=== PATIENT | female | born 1975 | race Caucasian/White ===

== ENCOUNTER 2019-11-21 09:51 | Outpatient (REF) | payer MEDICAID, SELFPAY ==
--- NOTE | 2019-11-21 10:01 | EMG_ITS ---
HISTORY OF PRESENT ILLNESS: This is a 44-year-old woman with a 2-month history of bilateral upper extremity pain, numbness, and tingling and some locking of the thumb. PHYSICAL EXAMINATION: On examination, she is alert and oriented with normal intellectual functions. Cranial nerves II through XII are normal. Muscle tone and strength are normal in all 4 extremities. Deep tendon reflexes symmetrical, 2+, plantar responses are flexor. No Tinel or Phalen sign. IMPRESSION: Carpal tunnel syndrome. NERVE CONDUCTION EMG STUDY: Mild to moderate carpal tunnel syndrome on the right and mild carpal tunnel syndrome on the left. Normal EMG of the right C5-T1 innervated muscles. MD KEL Chowdhury/ALINE / [id number]
== END 2019-11-21 09:52 | disposition home or self-care (01) ==
LOC: HO.NEURO 09:51
PROVIDERS: PCP Emergency Medicine; Visit Provider Emergency Medicine
DX: M79.641 Pain in right hand (principal); M79.642 Pain in left hand
CPT/HCPCS: 95860; 95913

== ENCOUNTER 2020-02-14 12:37 | Outpatient (REF) | payer MEDICAID, SELFPAY ==
--- NOTE | 2020-02-14 12:40 | MM_ITS ---
EXAMINATION: MM SCREENING DIGITAL BREAST TOMOSYNTHESIS, BILATERAL CLINICAL INFORMATION: Screening. Asymptomatic. The lifetime risk of breast cancer based on the Tyrer-Cuzick Model is 7%. COMPARISON: Mammography: 11/16/2018, 07/27/2017, 06/25/2016 TECHNIQUE: Digital breast tomosynthesis is performed in both the craniocaudal and mediolateral oblique views along with computer-aided detection (CAD). Synthesized 2D images are generated from the tomosynthesis. Additional right CC view is provided. FINDINGS: There are scattered areas of fibroglandular density (ACR BI-RADS breast composition Category b). There are no significant masses, abnormal calcifications, or other abnormalities. There is fine fibronodular parenchymal pattern similar to prior studies. There are no significant changes. MM/MM tomosynthesis screening BI IMPRESSION: No mammographic evidence of malignancy. ASSESSMENT: BI-RADS 1: Negative RECOMMENDATION: Routine annual mammography screening. This patient's information was entered into a reminder system with a target due date for their next mammogram.
== END 2020-02-14 12:38 | disposition home or self-care (01) ==
LOC: HO.MAMMO 12:37
PROVIDERS: PCP Internal Medicine; Visit Provider Internal Medicine
DX: Z12.31 Encounter for screening mammogram for malignant neoplasm of breast (principal)
CPT/HCPCS: 77063; 77067

== ENCOUNTER 2020-03-07 09:23 | Outpatient (REF) | payer MEDICAID, SELFPAY ==
[2020-03-07 10:33] LABS: Glucose Urine UA NEG (NEG); Leukocyte Esterase Urine 2+ (NEG); Nitrite Urine NEG (NEG); PH 6.5 (5.0-8.0); Urine Blood 3+ (NEG); Urine Ketones 5 MG/DL (NEG); Urine Protein TRACE MG/DL (NEG-TRACE)
[2020-03-07 10:34] LABS: Appearance Urine CLOUDY; Color Urine YELLOW
[2020-03-07 10:51] LABS: Bacteria Urine TRACE /LPF; Mucus Urine 1+ /LPF; RBC Urine TNTC /HPF (0); Squamous Epithelial Cell Urine 1+ /LPF; WBC Urine TNTC /HPF (0-4)
== END 2020-03-07 09:24 | disposition home or self-care (01) ==
LOC: HO.LAB 09:23
PROVIDERS: Absent Provider Internal Medicine; PCP Internal Medicine; Visit Provider Internal Medicine
DX: N39.0 Urinary tract infection, site not specified (principal)
CPT/HCPCS: 81001; 87086; 87088; 87186

== ENCOUNTER 2020-10-02 10:40 | Outpatient (REF) | payer MEDICAID, SELFPAY ==
--- NOTE | ~2020-10-02 | XR_ITS ---
EXAMINATION: XR HAND/WRIST, RIGHT CLINICAL INFORMATION: Osteoarthritic pain. COMPARISON: None TECHNIQUE: PA, lateral, and oblique views of the right hand and wrist are submitted, together with a dedicated navicular view. FINDINGS: The bones and soft tissues are normal. No fracture. Alignment is anatomic. Joint spaces are maintained. No erosions or soft tissue calcifications. XR/XR hand wrist LT IMPRESSION: Normal radiographs of the hand and wrist. EXAMINATION: XR HAND/WRIST, LEFT CLINICAL INFORMATION: Osteoarthritic pain. COMPARISON: None TECHNIQUE: PA, lateral, and oblique views of the left hand and wrist are submitted, together with a dedicated navicular view. FINDINGS: The bones and soft tissues are normal. No fracture. Alignment is anatomic. Joint spaces are maintained. No erosions or soft tissue calcifications.
--- NOTE | ~2020-10-02 | XR_ITS ---
EXAMINATION: XR HAND/WRIST, RIGHT CLINICAL INFORMATION: Osteoarthritic pain. COMPARISON: None TECHNIQUE: PA, lateral, and oblique views of the right hand and wrist are submitted, together with a dedicated navicular view. FINDINGS: The bones and soft tissues are normal. No fracture. Alignment is anatomic. Joint spaces are maintained. No erosions or soft tissue calcifications. XR/XR hand wrist RT IMPRESSION: Normal radiographs of the hand and wrist. EXAMINATION: XR HAND/WRIST, LEFT CLINICAL INFORMATION: Osteoarthritic pain. COMPARISON: None TECHNIQUE: PA, lateral, and oblique views of the left hand and wrist are submitted, together with a dedicated navicular view. FINDINGS: The bones and soft tissues are normal. No fracture. Alignment is anatomic. Joint spaces are maintained. No erosions or soft tissue calcifications.
--- NOTE | ~2020-10-02 | XR_ITS ---
EXAMINATION: XR CERVICAL SPINE CLINICAL INFORMATION: Osteoarthritic pain. COMPARISON: Radiographs dated 04/30/2014. TECHNIQUE: Frontal, odontoid, bilateral oblique and lateral views of the cervical spine were obtained. FINDINGS: The vertebral alignment is normal. No intrinsic bony abnormality. The disc heights and neural foramina are well maintained. The endplates and posterior elements are normal. The bilateral neural foramina appear patent. No fracture or subluxation. The surrounding prevertebral soft tissues are unremarkable. XR/XR cervical spine min 6V IMPRESSION: Unremarkable examination.
[2020-10-02 12:38] LABS: C Reactive Protein 1.41 mg/dL (< or = 0.50)
[2020-10-02 13:17] LABS: Erythrocyte Sedimentation Rate 16 MM/HR (0-20)
[2020-10-06 13:36] LABS: Anti Nuclear Antibody Pattern Nuclear, Speckled; Anti Nuclear Antibody Screen POSITIVE (NEGATIVE); Anti Nuclear Antibody Titer 1:40 titer
[2020-10-06 14:51] LABS: Cyclic Citrullinated Peptide <16 UNITS
== END 2020-10-02 10:41 | disposition home or self-care (01) ==
LOC: HO.LAB 10:40
PROVIDERS: PCP Internal Medicine; Visit Provider Internal Medicine
DX: G56.03 Carpal tunnel syndrome, bilateral upper limbs (principal); M19.90 Unspecified osteoarthritis, unspecified site
CPT/HCPCS: 36415; 72052; 73110; 73130; 85652; 86038; 86039; 86140; 86200

== ENCOUNTER 2020-11-06 13:41 | Outpatient (REF) | payer MEDICAID, SELFPAY ==
[2020-11-11 15:22] LABS: HPV mRNA E6/E7 rflx Not Detected (Not Detected)
== END 2020-11-06 13:42 | disposition home or self-care (01) ==
LOC: HO.LAB 13:41
PROVIDERS: PCP Internal Medicine; Visit Provider Obstetrics & Gynecology
DX: Z01.411 Encounter for gynecological examination (general) (routine) with abnormal findings (principal); Z11.51 Encounter for screening for human papillomavirus (HPV); N95.0 Postmenopausal bleeding; Z87.42 Personal history of other diseases of the female genital tract
CPT/HCPCS: 87624; 88142; 99212

== ENCOUNTER 2020-11-27 11:23 | Outpatient (REF) | payer MEDICAID, SELFPAY ==
--- NOTE | ~2020-11-27 | US_ITS ---
EXAMINATION: US PELVIC AND TRANSVAGINAL CLINICAL INFORMATION: Post menopausal bleeding. COMPARISON: Ultrasound pelvis 09/17/2019 TECHNIQUE: Ultrasound of the pelvis was performed using both transabdominal and transvaginal transducers along with Doppler. Transvaginal imaging was performed due to inadequate visualization transabdominally. FINDINGS: The uterus is anteverted measuring 8.9 cm in length, 3.7 cm in AP and 5.9 cm in transverse dimensions. Endometrial thickness measures 0.9 cm. There are at least 2 lesions visualized. 1. Lesion in the anterior mid body of the uterus measures 1.6 x 1.1 x 1.8 cm. Previously it measured 1.4 x 1.3 x 1.8 cm. 2. Lesion in the anterior fundal uterus measures 0.7 x 0.7 x 0.7 cm. Previously, it was not seen. 3. The previously seen lesion measuring 1.1 x 1.1 x 0.9 cm is not visualized at this time. There are multiple anechoic nabothian cysts seen. The right ovary measures 1.4 x 1.4 x 1.0 cm and volume 1.0 mL. The ovary appears unremarkable. The left ovary measures 1.6 x 0.9 x 1.7 cm and volume 1.3 mL. It is visualized transabdominally only. US/US pelvic and transvaginal IMPRESSION: At least 2 uterine fibroids are noted. There is a new fibroid measuring 0.7 cm. The previously seen 1.1 cm fibroid on 09/17/2019 is not seen on the present exam. Both ovaries are unremarkable. Small nabothian cysts in the cervix.
== END 2020-11-27 11:24 | disposition home or self-care (01) ==
LOC: HO.US 11:23
PROVIDERS: PCP Internal Medicine; Visit Provider Obstetrics & Gynecology
DX: N95.0 Postmenopausal bleeding (principal)
CPT/HCPCS: 76830; 76856

== ENCOUNTER 2020-12-11 13:53 | Outpatient (REF) | payer MEDICAID, SELFPAY | END 2020-12-11 13:54 | disposition home or self-care (01) | LOC: HO.LAB 13:53 | PROVIDERS: PCP Internal Medicine; Visit Provider Obstetrics & Gynecology | DX: N95.0 Postmenopausal bleeding (principal) | CPT/HCPCS: 58100; 88305 ==

== ENCOUNTER → 2021-01-07 16:08 | Outpatient (BNVA) | payer MEDICAID, SELFPAY | PROVIDERS: PCP Internal Medicine; Visit Provider Obstetrics & Gynecology ==

== ENCOUNTER → 2021-04-30 12:57 | Outpatient (BNVA) | payer MEDICAID, SELFPAY | PROVIDERS: PCP Internal Medicine; Referring Provider Internal Medicine; Visit Provider Physician Assistant | DX: Z01.818 Encounter for other preprocedural examination (principal) | CPT/HCPCS: 99202 ==

== ENCOUNTER 2021-07-01 11:56 | Outpatient (REF) | payer MEDICAID, SELFPAY ==
--- NOTE | ~2021-07-01 | MM_ITS ---
EXAMINATION: MM SCREENING DIGITAL BREAST TOMOSYNTHESIS, BILATERAL CLINICAL INFORMATION: Screening. Asymptomatic. The lifetime risk of breast cancer based on the Tyrer-Cuzick Model is 8%. COMPARISON: Mammography: 02/14/2020, 11/16/2018, 2018 TECHNIQUE: Digital breast tomosynthesis is performed in both the craniocaudal and mediolateral oblique views along with computer-aided detection (CAD). Synthesized 2D images are generated from the tomosynthesis. Additional exaggerated right CC and additional right MLO views are provided. FINDINGS: There are scattered areas of fibroglandular density (ACR BI-RADS breast composition Category b). Findings fibronodular parenchymal pattern is similar to prior exams. There is no developing density or interval mass or architectural abnormality. No abnormal calcifications. The axilla and skin contours are unremarkable. No significant changes. MM/MM tomosynthesis screening BI IMPRESSION: No mammographic evidence of malignancy. ASSESSMENT: BI-RADS 1: Negative RECOMMENDATION: Routine annual mammography screening. This patient's information was entered into a reminder system with a target due date for their next mammogram.
== END 2021-07-01 11:57 | disposition home or self-care (01) ==
LOC: HO.MAMMO 11:56
PROVIDERS: PCP Internal Medicine; Visit Provider Internal Medicine
DX: Z12.31 Encounter for screening mammogram for malignant neoplasm of breast (principal)
CPT/HCPCS: 77063; 77067

== ENCOUNTER 2021-07-08 08:49 | Day surgery (SDC) | payer MEDICAID, SELFPAY ==
[2021-07-02 12:10] VITALS: BMI 44.4
--- NOTE | 2021-07-07 10:19 | P.CONAN_ITS ---
Documented by User: Mary Ellen Kaur NP 07/07/21 10:19 HPI - Anesthesia Eval Consult details Narrative: 45yo F for Colonoscopy PMFSH Active Problems Active Problems: All Active Problems (Updated 05/03/21 @ 16:41 by Leonie Mancia PA-C) Encounter for screening colonoscopy (Acute) Postmenopausal bleeding (Acute) Well woman exam (Acute) Past Medical History Medical History Acute arthritis Carpal tunnel syndrome BENITO III (cervical intraepithelial neoplasia grade III) with severe dysplasia Seasonal allergic rhinitis Family History Family History Mother HTN (hypertension) A-fib Arthritis Father Diabetes HTN (hypertension) Sister Lupus Surgical History Surgical History Tubal ligation status Social History Social History (Updated 04/30/21 @ 13:25 by Leonie Mancia PA-C) Household Members Other:: kids Patient Tobacco Use Status: Never used Tobacco Use of substances other than those prescribed or required for medical reasons: No Are you DNR?: No Advance Directives: No Advance Directives Information Provided: Yes Patient : No (TUBAL LIGATION) Current occupational status: employed 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[employer] Meds Allergies Allergy/AdvReac Type Severity Reaction Status Date / Time No Known Allergies Allergy Verified 04/30/21 13:02 Home Medications Medication Instructions Recorded Confirmed Last Taken Type fluoxetine 20 mg capsule 20 mg PO DAILY 04/30/21 07/02/21 Unknown History ibuprofen 200 mg tablet 200 mg PO Q6H PRN 04/30/21 07/02/21 Unknown History Exam Exam Date and Time: July 07, 2021 1019 Height,Weight and Vital Signs: Height 4 ft 11 in Weight 99.79 kg Assessment and Plan Assessment Anesthesia Assessment: Chart Reviewed Documented by User: eMllissa Gleason MD 07/08/21 09:24 [facility] Past Medical History Medical History Acute arthritis Carpal tunnel syndrome BENITO III (cervical intraepithelial neoplasia grade III) with severe dysplasia Seasonal allergic rhinitis Family History Family History Mother HTN (hypertension) A-fib Arthritis Father Diabetes HTN (hypertension) Sister Lupus Family history of problems with anesthesia: No Surgical History Surgical History Tubal ligation status Social History Social History (Updated 04/30/21 @ 13:25 by Leonie Mancia PA-C) Household Members Other:: kids Patient Tobacco Use Status: Never used Tobacco Use of substances other than those prescribed or required for medical reasons: No Are you DNR?: No Advance Directives: No Advance Directives Information Provided: Yes Patient : No (TUBAL LIGATION) Current occupational status: employed 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 Meds Allergies Allergy/AdvReac Type Severity Reaction Status Date / Time No Known Allergies Allergy Verified 04/30/21 13:02 Home Medications Medication Instructions Recorded Confirmed Last Taken Type fluoxetine 20 mg capsule 20 mg PO DAILY 04/30/21 07/02/21 Unknown History ibuprofen 200 mg tablet 200 mg PO Q6H PRN 04/30/21 07/02/21 Unknown History Exam Airway Mallampati Class: II TM Dist: >3cm Neck ROM: Full Heart: rrr Lungs: cta Assessment and Plan Assessment Anesthesia Assessment: Anesthesia Plan Discussed and Chart Reviewed Final Anesthetic Review Family History of Problems with Anesthesia: No NPO: Yes ASA Class: II Final Preanesthetic Review: No Changes in Pt Med Stat, Meds/Allgs Chart Reviewed, Consent Obtained/Reviewed and Anes Risks/Benef Reviewed Patient Risk: Intermediate Procedure Risk: Intermediate Anesthetic Plan Anesthetic Plan: MAC: Disposition: Standard PACU
[2021-07-08 09:00] VITALS: BMI 44.4
[2021-07-08 09:01] VITALS: BP 163/87; PULSE 74; RESP 18; TEMP 36.4; O2SAT 98
[2021-07-08 09:13] VITALS: BMI 44.4
--- NOTE | 2021-07-08 09:28 | MHC.SHP ---
Pre-Procedural Eval Section A Date of Service: 07/08/21 Section B Chief Complaint: screening Relevant Family History (Specify if Yes): No Relevant Social History: None Present Medications: see Short Stay Collaborative assessment Medical History: Significant History (Acute arthritis Carpal tunnel syndrome BENITO III (cervical intraepithelial neoplasia grade III) with severe dysplasia Seasonal allergic rhinitis) History of Previous Operations: Relevant previous surgery/procedure and date(s) (tubal ligation) Allergies: Allergies Allergy/AdvReac Type Severity Reaction Status Date / Time No Known Allergies Allergy Verified 04/30/21 13:02 Review of Systems Sugical H&P ROS: Negative: Constitution, Cardiovascular, Respiratory, Neurological, Psychiatric, Hem-Onc, Allergic/Immunologic, Gastrointestinal, Genitourinary, Musculoskeletal, Integumentary, Endocrine and Eyes/Ears/Nose/Throat Exam Surgical H&P Exam: Normal: HEENT, Normal: Heart, Normal: Lungs, Normal: Extremities, Normal: Abdomen, Normal: Skin and Normal: Neurological Exam Comment: high BMI Plan Diagnosis/Plan: Unchanged I have reviewed the history and physical and performed a pertinent physical examination on my patient. No changes have occurred unless specified.
--- NOTE | 2021-07-08 09:28 | PM.OP ---
Brief Operative Note Date of Service: 07/08/21 Pre-op diagnosis: screening Post-op diagnosis: same Procedure: see op note Surgeon: Teresa Bazan MD Anesthesia: MAC Was an Industrial Refrigeration Mechanic used for this Procedure?: No Estimated blood loss (mL): 0 Condition: stable Disposition: PACU
--- NOTE | 2021-07-08 09:29 | W.PM.OPN ---
Operative Note Operative Note Date of Service: 07/08/21 Narrative: Operative Information Procedure Description: Colonoscopy Indication: colon screening Anesthesia: MAC COLONOSCOPY Instrument: Olympus variable stiffness pediatric scope 190L Colonoscopy Monitoring: Vital signs and clinical assessment, continuous EKG monitoring, Pulse oximetry, Carbon Dioxide monitoring and blood pressure monitoring were done throughout the procedure. Colon withdrawal time was 7 minutes. Procedure: The patient was placed in the left lateral decubitis position and pre-procedure medications were administered. After a digital rectal examination of the ano-rectum, the video colonoscope was inserted into the rectum and advanced through the colon to the cecum/TI. The colonoscope was slowly withdrawn in a retrograde panoramic fashion and the colon mucosa was carefully examined including a retroflexed view of the rectum. Findings and interventions are described below. Procedure Difficulty: easy Findings: Terminal Ileum-normal Cecum:normal Ascending Colon: normal Transverse Colon -normal Descending Colon:normal Sigmoid Colon: moderate diverticulosis with mucosal hypertrophy Rectum: Retroflexion with small internal hemorrhoids, grade I Anorectum - normal Colon preparation: Lacona Bowel Preparation Scale Right colon; 2 Transverse colon: 3 Left colon; 3 (0 = Unprepared colon segment with mucosa not seen due to solid stool that cannot be cleared. 1 = Portion of mucosa of the colon segment seen, but other areas of the colon segment not well seen due to staining, residual stool and/or opaque liquid. 2 = Minor amount of residual staining, small fragments of stool and/or opaque liquid, but mucosa of colon segment seen well. 3 = Entire mucosa of colon segment seen well with no residual staining, small fragments of stool or opaque liquid) Impression and Post Procedure Diagnosis: internal hemorrhoids diverticular disease Plan: High fiber diet leaflet Avoid straining at stool, epsom salts and sitz bath, anusol supps or cream Repeat Colonoscopy in 10 years or earlier if clinically indicated Above findings were reviewed with the patient and relevant handouts were provided if indicated.
[2021-07-08] MEDS: Lactated Ringers 1,000 ML 100 ML IVCONT (09:41)
--- NOTE | 2021-07-08 09:50 | P.OP_ITS ---
Operative Note Operative Note Date of Service: 07/08/21 Narrative: Operative Information Procedure Description: Colonoscopy Indication: screening colonoscopy Anesthesia: MAC COLONOSCOPY Instrument: Olympus variable stiffness pediatric scope 190L Colonoscopy Monitoring: Vital signs and clinical assessment, continuous EKG monitoring, Pulse oximetry, Carbon Dioxide monitoring and blood pressure monitoring were done throughout the procedure. Colon withdrawal time was 11 minutes. Procedure: The patient was placed in the left lateral decubitis position and pre-procedure medications were administered. After a digital rectal examination of the ano-rectum, the video colonoscope was inserted into the rectum and advanced through the colon to the cecum/TI. The colonoscope was slowly withdrawn in a retrograde panoramic fashion and the colon mucosa was carefully examined including a retroflexed view of the rectum. Findings and interventions are described below. Procedure Difficulty: easy Findings: Terminal Ileum-normal Melanosis coli noted Cecum:normal Ascending Colon: normal Transverse Colon - 6-9 mm sessile polyp removed with cold snare Descending Colon:normal Sigmoid Colon: 6-9 mm sessile polyp removed with cold snare Rectum: Retroflexion with small internal hemorrhoids, grade I Anorectum - normal Colon preparation: Tolstoy Bowel Preparation Scale Right colon; 2 Transverse colon: 2 Left colon; 2 (0 = Unprepared colon segment with mucosa not seen due to solid stool that cannot be cleared. 1 = Portion of mucosa of the colon segment seen, but other areas of the colon segment not well seen due to staining, residual stool and/or opaque liquid. 2 = Minor amount of residual staining, small fragments of stool and/or opaque liquid, but mucosa of colon segment seen well. 3 = Entire mucosa of colon segment seen well with no residual staining, small fragments of stool or opaque liquid) Impression and Post Procedure Diagnosis: polyps internal hemorrhoids melanosis coli Plan: High fiber diet leaflet Avoid straining at stool, epsom salts and sitz bath, anusol supps or cream Repeat Colonoscopy in 5 years due to polyps or earlier if clinically indicated Above findings were reviewed with the patient and relevant handouts were provided if indicated.
--- NOTE | 2021-07-08 09:50 | PM.OP ---
Brief Operative Note Date of Service: 07/08/21 Pre-op diagnosis: colon screening Post-op diagnosis: same Procedure: see op note Surgeon: Teresa Bazan MD Anesthesia: MAC Was an Substance Abuse Therapist used for this Procedure?: No Estimated blood loss (mL): 0 Condition: stable Disposition: PACU
[2021-07-08 10:24] VITALS: BP 123/73; PULSE 75; RESP 16; TEMP 36.6; O2SAT 98
[2021-07-08 10:41] VITALS: BP 130/74; PULSE 74; RESP 16; TEMP 36.7; O2SAT 97
== END 2021-07-08 11:27 | disposition home or self-care (01) ==
PROVIDERS: PCP Internal Medicine; Visit Provider Internal Medicine Gastroenterology
PROC: 0DJD8ZZ Inspection of Lower Intestinal Tract, Via Natural or Artificial Opening Endoscopic (ICD-10-PCS; CPT 45378; principal; 2021-07-08 10:10)
DX: Z12.11 Encounter for screening for malignant neoplasm of colon (principal); D12.3 Benign neoplasm of transverse colon; D12.5 Benign neoplasm of sigmoid colon; K63.89 Other specified diseases of intestine; K64.0 First degree hemorrhoids; K21.9 Gastro-esophageal reflux disease without esophagitis; J30.2 Other seasonal allergic rhinitis; D06.9 Carcinoma in situ of cervix, unspecified; M19.90 Unspecified osteoarthritis, unspecified site; Z79.1 Long term (current) use of non-steroidal anti-inflammatories (NSAID); Z79.899 Other long term (current) drug therapy
CPT/HCPCS: 45385; 88305

== ENCOUNTER 2021-11-11 15:37 | Outpatient (REF) | payer MEDICAID, SELFPAY ==
[2021-11-15 14:03] LABS: HPV mRNA E6/E7 rflx Not Detected (Not Detected)
== END 2021-11-11 15:38 | disposition home or self-care (01) ==
LOC: HO.LNP 15:37
PROVIDERS: Visit Provider Obstetrics & Gynecology
DX: Z01.419 Encounter for gynecological examination (general) (routine) without abnormal findings (principal)
CPT/HCPCS: 87624; 88142

== ENCOUNTER → 2022-02-23 13:29 | Outpatient (BNVA) | payer MEDICAID, SELFPAY | PROVIDERS: PCP Internal Medicine; Visit Provider Obstetrics & Gynecology | DX: Z01.419 Encounter for gynecological examination (general) (routine) without abnormal findings (principal) | CPT/HCPCS: 99212 ==

== ENCOUNTER 2022-05-24 13:15 | Outpatient (REF) | payer MEDICAID, SELFPAY ==
--- NOTE | ~2022-05-24 | MR_ITS ---
EXAMINATION: MR SHOULDER WITHOUT CONTRAST, RIGHT CLINICAL INFORMATION: Right shoulder pain, fall COMPARISON: None available. TECHNIQUE: MRI of the shoulder without contrast was performed on a high-field scanner. FINDINGS: ROTATOR CUFF: Supraspinatus tendinosis with an ill-defined small longitudinal partial tear of the supraspinatus tendon insertion. The rotator cuff is otherwise intact. No muscle atrophy or fatty infiltration. BICEPS: Normal. CORACOACROMIAL ARCH: The undersurface of the acromion is flat with no subacromial spur. Mild acromioclavicular osteoarthritis and subacromial subdeltoid bursitis. LABRUM/CAPSULE: Normal. GLENOHUMERAL JOINT/MARROW: No joint effusion. Small degenerative cysts of the greater tuberosity at the supraspinatus tendon insertion. MR/MR shoulder RT wo con IMPRESSION: 1. Supraspinatus tendinosis with a small ill-defined longitudinal partial tear at the tendon insertion. 2. Mild acromioclavicular osteoarthritis and subacromial subdeltoid bursitis.
== END 2022-05-24 13:16 | disposition home or self-care (01) ==
LOC: HO.MRI 13:15
PROVIDERS: PCP Internal Medicine; Visit Provider Registered Nurse
DX: M25.511 Pain in right shoulder (principal)
CPT/HCPCS: 73221

== ENCOUNTER → 2022-06-14 12:40 | Outpatient (BNVA) | payer MEDICAID, SELFPAY | PROVIDERS: PCP Internal Medicine; Visit Provider Orthopaedic Surgery | DX: S49.91XA Unspecified injury of right shoulder and upper arm, initial encounter (principal); M77.12 Lateral epicondylitis, left elbow; G56.03 Carpal tunnel syndrome, bilateral upper limbs | CPT/HCPCS: 99202; 99212 ==

== ENCOUNTER 2022-07-07 11:33 | Outpatient (REF) | payer MEDICAID, SELFPAY ==
--- NOTE | ~2022-07-07 | MM_ITS ---
EXAMINATION: MM SCREENING DIGITAL BREAST TOMOSYNTHESIS, BILATERAL CLINICAL INFORMATION: Screening. Asymptomatic. The lifetime risk of breast cancer based on the Tyrer-Cuzick Model is 8%. COMPARISON: Mammography: 07/01/2021, 02/14/2020, 11/16/2018 TECHNIQUE: Digital breast tomosynthesis is performed in both the craniocaudal and mediolateral oblique views along with computer-aided detection (CAD). Synthesized 2D images are generated from the tomosynthesis. FINDINGS: There are scattered areas of fibroglandular density (ACR BI-RADS breast composition Category b). There are no significant masses, abnormal calcifications, or other abnormalities. Fine fibronodular parenchymal pattern is similar to prior exams and there is no developing density or architectural abnormality. The axilla and skin contours are unremarkable. No significant changes from prior studies. MM/MM tomosynthesis screening BI IMPRESSION: No mammographic evidence of malignancy. ASSESSMENT: BI-RADS 1: Negative RECOMMENDATION: Routine annual mammography screening. This patient's information was entered into a reminder system with a target due date for their next mammogram.
== END 2022-07-07 11:34 | disposition home or self-care (01) ==
LOC: HO.MAMMO 11:33
PROVIDERS: PCP Internal Medicine; Visit Provider Internal Medicine
DX: Z12.31 Encounter for screening mammogram for malignant neoplasm of breast (principal)
CPT/HCPCS: 77063; 77067

== ENCOUNTER → 2022-07-13 15:41 | Outpatient (BNVA) | payer MEDICAID, SELFPAY | PROVIDERS: PCP Internal Medicine; Visit Provider Physician Assistant ==

== ENCOUNTER 2022-07-15 | Outpatient (REF) | payer MEDICAID, SELFPAY ==
[2022-07-21 12:10] LABS: H Pylori Breath Test Negative (Negative)
== END 2022-07-15 00:01 | disposition home or self-care (01) ==
LOC: HO.LNP
PROVIDERS: Visit Provider Physician Assistant Surgical
DX: E66.01 Morbid (severe) obesity due to excess calories (principal); Z11.0 Encounter for screening for intestinal infectious diseases
CPT/HCPCS: 83013

== ENCOUNTER → 2022-07-15 13:53 | Outpatient (BNVA) | payer MEDICAID, SELFPAY | PROVIDERS: PCP Internal Medicine; Visit Provider Physician Assistant Surgical | DX: E66.01 Morbid (severe) obesity due to excess calories (principal); Z68.41 Body mass index [BMI] 40.0-44.9, adult; Z11.0 Encounter for screening for intestinal infectious diseases | CPT/HCPCS: 99202; 99211 ==

== ENCOUNTER 2022-07-26 06:51 | Outpatient (REF) | payer MEDICAID, SELFPAY ==
[2022-07-26 07:30] LABS: Basophils Absolute Auto 0.1 X10*3/uL (0.0-0.2); Basophils Percent Auto 0.5 % (0-2); Eosinophils Absolute Auto 0.1 X10*3/uL (0.0-0.4); Eosinophils Percent Auto 1.2 % (0-4); Hematocrit 40.5 % (37.0-47.0); Hemoglobin 13.2 g/dl (12.0-16.0); Imm Gran Abs Auto 0.02 X10*3/uL (0.00-0.03); Imm Gran Pct Auto 0.2 % (0.0-0.4); Lymphocytes Absolute Auto 3.2 X10*3/uL (1.2-4.9); MANUAL DIFF FLAG SCAN; Mean Corpuscular HGB Conc 32.6 g/dl (31.0-35.0); Mean Corpuscular Hemoglobin 28.3 pg (27.0-33.0); Mean Corpuscular Volume 86.7 fL (80.0-98.0); Monocytes Absolute Auto 0.9 X10*3/uL (0.1-1.2); Monocytes Percent Auto 8.6 % (2-11); Neutrophils Percent Auto 58.5 % (45-73); PLT CLUMP 1; Red Blood Count 4.67 X10*6/uL (4.20-5.50); Red Cell Distribution Width 13.2 % (11.0-16.0); SCAN SMEAR FLAG 1
[2022-07-26 07:31] LABS: White Blood Count 10.3 X10*3/uL (4.8-10.8)
[2022-07-26 07:43] LABS: Estimated Average Glucose 94 mg/dL; Hemoglobin A1c % 4.9 %
[2022-07-26 07:55] LABS: Platelet Count 264 X10*3/uL (160-400); SLIDE REVIEW VERIFIED
[2022-07-26 08:20] LABS: Alanine Aminotransferase 27 U/L (0-31); Alkaline Phosphatase 59 U/L (39-117); Anion Gap 13 (12-20); Aspartate Amino Transferase 21 U/L (5-31); Bilirubin Total 0.5 mg/dL (0.0-1.0); Blood Urea Nitrogen 24 mg/dL (9-16); C Reactive Protein 1.27 mg/dL (< or = 0.50); Calcium 9.4 mg/dL (8.4-10.2); Carbon Dioxide 27 mmol/L (22-29); Chloride 106 mmol/L (96-108); Cholesterol 152 mg/dL; Estimated Glomerular Filt Rate > 60; Glucose Random 85 mg/dL (60-115); HDL Cholesterol 43 mg/dL; Iron 47 mcg/dL (30-160); LDL Cholesterol Calculated 95 mg/dl; Percent Iron Saturation 20 % (15-50); Potassium 4.1 mmol/L (3.3-5.1); Sodium 142 mmol/L (135-145); Total Iron Binding Capacity 238 mcg/dL (228-428); Triglycerides 74 mg/dL; Unsaturated Iron Binding 191 ug/dL
[2022-07-26 08:38] LABS: Ferritin 88 ng/mL (10-250); Folate 13.3 ng/mL (> or = 4.0); TSH reflex Free T4 2.44 uIU/mL (0.32-4.0); Vitamin B12 855 pg/mL (200-900); Vitamin D 25-OH Total 21.4 ng/mL (>30)
[2022-07-26 08:53] LABS: Insulin 21 uU/mL (2-29)
[2022-07-28 14:18] LABS: PTHI 78 pg/mL (16-77)
[2022-07-29 06:17] LABS: Zinc 91 mcg/dL (60-130)
[2022-07-30 18:58] LABS: Vitamin A 33 mcg/dL (38-98)
[2022-07-31 13:09] LABS: Vitamin B1 <6 nmol/L (8-30)
== END 2022-07-26 06:52 | disposition home or self-care (01) ==
LOC: HO.LAB 06:51
PROVIDERS: PCP Internal Medicine; Visit Provider Physician Assistant Surgical
DX: E66.01 Morbid (severe) obesity due to excess calories (principal)
CPT/HCPCS: 36415; 80053; 80061; 82306; 82607; 82728; 82746; 83036; 83525; 83540; 83970; 84425; 84443; 84590; 84630; 85025; 86140

== ENCOUNTER → 2022-08-05 11:54 | Outpatient (REF) | payer MEDICAID, SELFPAY ==
--- NOTE | ~2022-08-05 | XR_ITS ---
EXAMINATION: XR CHEST 2 VIEWS CLINICAL INFORMATION: Morbid obesity. COMPARISON: None. TECHNIQUE: Frontal and lateral views of the chest were obtained. FINDINGS: The heart, great vessels, pulmonary vasculature and mediastinum are normal. The lungs show no focal infiltrate, effusion or pneumothorax. There is mild elevation of the right hemidiaphragm. There is no acute osseous abnormality. XR/XR chest 2V IMPRESSION: No active cardiopulmonary disease.
--- NOTE | 2022-08-05 11:58 | ECG_ITS ---
Test Reason : obesity Blood Pressure : / mmHG Vent. Rate : 069 BPM Atrial Rate : 069 BPM P-R Int : 140 ms QRS Dur : 082 ms QT Int : 416 ms P-R-T Axes : 024 006 016 degrees QTc Int : 445 ms Normal sinus rhythm Normal ECG No previous ECGs available Referred By: Ted Beauchamp Electronically Signed By:Ino Navas
== END ==
LOC: HO.CARD 11:54
PROVIDERS: PCP Internal Medicine; Visit Provider Physician Assistant Surgical
DX: E66.01 Morbid (severe) obesity due to excess calories (principal)
CPT/HCPCS: 71046; 93005; 97802

== ENCOUNTER → 2022-08-09 14:29 | Outpatient (BNVA) | payer MEDICAID, SELFPAY | PROVIDERS: PCP Internal Medicine; Visit Provider Physician Assistant Surgical | DX: E66.01 Morbid (severe) obesity due to excess calories (principal); Z68.41 Body mass index [BMI] 40.0-44.9, adult | CPT/HCPCS: 99212 ==

== ENCOUNTER → 2022-08-13 13:00 | Outpatient (BNVA) | payer OTHER, MEDICAID, SELFPAY | PROVIDERS: PCP Internal Medicine; Referring Provider Physician Assistant Surgical; Visit Provider Counselor Mental Health ==

== ENCOUNTER 2022-08-31 15:06 | Outpatient (AMB) | payer MEDICAID, SELFPAY ==
--- NOTE | 2022-08-31 15:02 | MHC.AMNUTRGE ---
Intake Intake Visit Reasons: VIDEO F/U SW[facility] Landscape Account Manager Required: Yes Landscape Account Manager Name: Dylan [id number] Information Interpreted: non-clinical & clinical Allergies No Known Allergies Allergy (Verified 08/09/22 14:37) HPI Nutrition Presentation Reason for consult elevated BMI Diet Assmnt Details 6:30-8:30 shake another shake 2:30 protein bar dinner sticks to protein and vegetables Not hungry at all anymore, was feeling hunger at last appt Exercise: 5x per week 45 minutes on the treadmill plus walking outside for 1-2 hour SWL online classes: scored poorly, 20% on nutrition class, 60% on post op class. Upon further discussion and questioning, she reports she blanks out when she needs to take a test. Last appt we reviewed everything 1:1. today pt reports she feels comfortable with the information and has no questions. It was helpful to repeat the same message several different ways before patient understood. Dietary counseling reduction Diagnosis Nutrition problem #1 overweight/obesity As related to (etiology) #1 excess energy intake and physical inactivity As evidenced by (sign/symptom) #1 high BMI Monitoring/Goals Nutrition problem monitoring total energy intake, level of knowledge/skill, total PRO intake, total CHO intake and weight Outcome progress progressing Learning/Education Readiness to learn good Stages of change action Educational materials provided Yes Most Recent Diabetes Results: Cholesterol 152 mg/dL 07/26/22 HDL Cholesterol 43 mg/dL 07/26/22 Triglycerides 74 mg/dL 07/26/22 Creatinine 0.78 mg/dL (0.5-1.4) 07/26/22 Blood Urea Nitrogen 24 mg/dL (9-16) H 07/26/22 Sodium 142 mmol/L (135-145) 07/26/22 Potassium 4.1 mmol/L (3.3-5.1) 07/26/22 Chloride 106 mmol/L (96-108) 07/26/22 Carbon Dioxide 27 mmol/L (22-29) 07/26/22 Calcium 9.4 mg/dL (8.4-10.2) 07/26/22 AST 21 U/L (5-31) 07/26/22 ALT 27 U/L (0-31) 07/26/22 Total Protein 8.0 g/dL (6.5-8.0) 07/26/22 Albumin 4.0 g/dL (3.5-5.0) 07/26/22 PFS Medical History Acute arthritis Carpal tunnel syndrome BENITO III (cervical intraepithelial neoplasia grade III) with severe dysplasia Seasonal allergic rhinitis Surgical History Hx of colonoscopy Tubal ligation status Family History Mother HTN (hypertension) A-fib Arthritis Father Diabetes HTN (hypertension) Sister Lupus Social History Household Members: Spouse Housing: House Alcohol intake: current Alcohol intake frequency: holidays/special occasions only Patient Tobacco Use Status: Never used Tobacco service: No Current occupational status: employed 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 Educational requirements have been completed. Reviewed vitamin supplementation and commitment to protein shake for several months post surgery. Encouraged communication with office as needed Telehealth Telehealth Location of provider rendering services: practice address Location of patient: address on file Patient Identification confirmed using: Name, : Yes Telehealth method: voice only Patient verbally consented to treatment: Yes Patient verbally consented to billing insurance company: Yes Patient informed of any privacy concerns related to visit: Yes Minutes spent on Phone/Video with Pt.: 30 Coding Level of Care Code Nutr Indiv Subseq ([id number]) Diagnoses Morbid obesity E66.01 Time Spent (min) 20
== END 2022-08-31 15:10 | disposition home or self-care (01) ==
LOC: HO.HBS 15:06
PROVIDERS: PCP Internal Medicine; Visit Provider Dietitian, Registered
DX: E66.01 Morbid (severe) obesity due to excess calories (principal)

== ENCOUNTER → 2022-08-31 15:06 | Outpatient (BNVA) | payer MEDICAID, SELFPAY | PROVIDERS: PCP Internal Medicine; Visit Provider Dietitian, Registered | DX: E66.01 Morbid (severe) obesity due to excess calories (principal); Z71.3 Dietary counseling and surveillance | CPT/HCPCS: 97803 ==

== ENCOUNTER 2022-09-01 15:01 | Outpatient (AMB) | payer MEDICAID, SELFPAY ==
--- NOTE | 2022-09-01 15:02 | A.OFFVIS_ITS ---
Intake VS Expanded 09/01/22 15:07 Height 4 ft 11 in Weight 199 lb 6.4 oz BMI 40.3 BP 168/79 H Blood Pressure Location Rt brachial Blood Pressure Position Sitting Pulse 82 Pulse Source Pulse Oximeter Temp 97.6 F Temperature Source Temporal Artery Scan Pulse Oximetry 96 Oxygen Delivery Method Room Air Body Fat 87.0 Body Fat Percentage 43.7 Free Fat Mass 112.2 Muscle Mass 106.4 Visceral Mass 13.0 Water Mass 80.0 BMR 1,569 Intake Visit Reasons: (OV) F/U SWL Power Plant Superintendent Required: Yes Power Plant Superintendent Name: office cmi Allergies No Known Allergies Allergy (Verified 09/01/22 15:06) Medication List - Last Reconciled 09/01/22 by TIFFANY Fox cholecalciferol (vitamin D3) 25 mcg PO DAILY fluoxetine 20 mg PO DAILY ibuprofen 200 mg PO Q6H PRN loratadine-pseudoephedrine 5-120 mg ER (Loratadine-D) 1 tab PO Q12H thiamine HCl (vitamin B1) 100 mg PO DAILY 90 days vitamin A palmitate 3,000 mcg PO DAILY 90 days HPI HPI Comments History of Present Illness Details The patient is a pleasant 47 year old female who returns to the clinic for pre-operative surgical weight loss management. They were last seen in the office on 08/09/22, recorded weight at that time was 202.4 pounds, with a BMI of 40.9. Today's weight is 199.4 pounds and BMI is 40.3. There has been a weight loss of 13 pounds since initiating the surgical weight loss program on 08/09/22 with a total body weight loss of 6.1 %. Pre op work up completed as follows: SWL classes:? 09/14 BH appts: cleared-08/13/22 ? ? RD appts: cleared-08/31/22 Labs: 07/26/22-low A,D, B1 H. pylori: 07/15/22-neg CXR: 08/05/22-nad EK08/05/22-normal ABD U/S: 09/20/22 UGI: 09/20/22 The patient reports she Current meal plan includes: 3 Orgain shakes First shake, (1 scoop in 8 oz low fat unsweetened almond milk) at 630am-830am Second shake, (1 scoop in 8 oz low fat unsweetened almond milk) at 130am-1230pm 1 protein bar (Zone Perfect bars) at 230pm-430pm. Dinner at 6pm (8 forks of protein and 8 forks of salad/vegetables). Another shake with 1/2 scoop in 8 oz unsweetened almond milk at 8pm-10pm. Drinking 64 oz of water Current exercise plan includes: walking outside this week as she has company visiting. 2 miles daily Last week she was doing treadmill, ? 200 calories on the treadmill, (speed 3.5 incline not tracking, uses fat burn).? ? 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 Cange slightly to 3 Orgain shakes First shake, (1 scoop in 8 oz low fat unsweetened almond milk) at 630am-830am Second shake, (1/2 scoop in 8 oz low fat unsweetened almond milk) at 130am- 1230pm 1 protein bar (Zone Perfect bars) at 230pm-430pm. Dinner at 6pm (8 forks of protein and 8 forks of salad/vegetables). Another shake with 1/2 scoop in 8 oz unsweetened almond milk at 8pm-10pm. Encouraged to continue exercise and track calories while walking Reminded of upcoming us/i 09/20/[address] Elise for continued care Coding Level of Care Code Est Pt Level 3 (22924) Diagnoses Morbid obesity E66.01
[2022-09-01 15:07] VITALS: BP 168/79; PULSE 82; TEMP 36.4; O2SAT 96; BMI 40.3
== END 2022-09-01 15:27 | disposition home or self-care (01) ==
PROVIDERS: PCP Internal Medicine; Visit Provider Physician Assistant Surgical
DX: E66.01 Morbid (severe) obesity due to excess calories (principal)
CPT/HCPCS: 99213

== ENCOUNTER → 2022-09-01 15:01 | Outpatient (BNVA) | payer MEDICAID, SELFPAY | PROVIDERS: PCP Internal Medicine; Visit Provider Physician Assistant Surgical | DX: E66.01 Morbid (severe) obesity due to excess calories (principal); Z68.41 Body mass index [BMI] 40.0-44.9, adult | CPT/HCPCS: 99213 ==

== ENCOUNTER 2022-09-20 08:30 | Outpatient (REF) | payer MEDICAID, SELFPAY ==
--- NOTE | ~2022-09-20 | US_ITS ---
EXAMINATION: US COMPLETE ABDOMEN WITH LIVER ELASTOGRAPHY CLINICAL INFORMATION: Obesity. COMPARISON: None available. TECHNIQUE: Real-time imaging of the abdominal viscera. Noninvasive ultrasound liver fibrosis assessment is performed using Tricia ElastPQ point quantification shear wave elastography (2D-SWE) with a C5-2 MHz transducer. Multiple elastography samples are obtained. FINDINGS: PANCREAS: Normal. The visualized pancreatic head and body are normal in appearance. The remainder of the pancreas is obscured from visualization by the overlying bowel gas. ABDOMINAL AORTA: The proximal, middle, and distal aortic segments are normal in caliber. INFERIOR VENA CAVA: Visualized portions are normal. LIVER: The liver demonstrates mild enlargement, normal contour and increased echogenicity. No focal lesion or intrahepatic biliary duct dilatation. The right lobe measures 17.6 cm in length. The left lobe measures 9.6 cm in length. Portal flow is towards the liver (hepatopetal). Shear wave liver elastography median stiffness is 1.46 m/s (reference: normal median stiffness is 1.3 m/s or less). IQR/median stiffness to assess sampling precision is 0.23 (reference: good quality data set is IQR/median stiffness of 0.15 or less). GALLBLADDER: There is cholelithiasis. The gallbladder is physiologically distended without evidence of sludge, polyps, wall thickening or pericholecystic fluid. COMMON BILE DUCT: Normal in caliber measuring 0.5 cm in diameter. RIGHT KIDNEY: Normal. No hydronephrosis. No renal calculi or focal parenchymal lesions. The kidney measures 11.5 cm in maximum dimension. LEFT KIDNEY: At the upper pole, a 3 mm nonobstructing calculus is seen. At the interpolar aspect, a 3 mm nonobstructing calculus is seen. No hydronephrosis. No renal calculi or focal parenchymal lesions. The kidney measures 11.7 cm in maximum dimension. SPLEEN: Normal. The spleen measures 12.6 cm in maximum dimension. FREE FLUID: None. US/US abdomen comp w elastography IMPRESSION: 1. There is mild hepatomegaly. 2. There is generalized increase in hepatic echotexture, consistent with fatty infiltration or hepatocellular disease. Please correlate clinically. No focal hepatic mass or intrahepatic biliary dilatation is seen. 3. Liver elastography: Although measurements appear to rule out compensated advanced chronic liver disease, there is statistical variability of the sampling which decreases accuracy. 4. There is cholelithiasis, without cholecystitis or choledocholithiasis. 5. There are small nonobstructing left renal calculi. REFERENCE: Society of Radiologists in Ultrasound Liver Stiffness Thresholds (2020): LIVER STIFFNESS THRESHOLDS: *Liver Stiffness equal or less than 1.3 m/s: High probability of being normal. *Liver Stiffness less than 1.7 m/s: In the absence of other known clinical signs, rules out compensated advanced chronic liver disease. *Liver Stiffness 1.7-2.1 m/s: Suggestive of compensated advanced chronic liver disease but need further test for confirmation. *Liver Stiffness over 2.1 m/s: Rules in compensated advanced chronic liver disease. *Liver Stiffness over 2.4 m/s: Suggestive of clinically significant portal hypertension. QUALITY OF DATA SET: *IQR/Median value equal or less than 0.15 implies a quality data set. *IQR/Median value over 0.15 implies a poor quality data set. SIGNIFICANT CHANGE FROM PRIOR EXAM: Significant change if liver stiffness measurement is 10% or greater from prior exam. OTHER CONSIDERATIONS: The stage of liver fibrosis may be overestimated in the setting of acute hepatitis, liver inflammation, elevated liver function tests, hepatic vascular congestion, obstructive cholestasis, non-fasting state, and infiltrative diseases such as amyloidosis and lymphoma. In some patients with NAFLD, the liver stiffness thresholds for compensated advanced chronic liver disease may be lower. In causes other than viral hepatitis and NAFLD, liver stiffness thresholds are not well established.
--- NOTE | ~2022-09-20 | FL_ITS ---
EXAMINATION: XR FLUOROSCOPY UPPER GI WITH AIR CLINICAL INFORMATION: Obesity COMPARISON: None available. TECHNIQUE: Upper GI was performed using thin and thick barium and effervescent granules. FINDINGS: Esophageal motility is normal. No significant hernia is seen. There is gastroesophageal reflux. The stomach and duodenum are normal. No fold thickening, mass, ulcer or stricture is seen. FLUOROSCOPY TIME: 0.6 minutes DOSE AREA PRODUCT: 7.6 vickers per centimeter squared. 18 saved fluoroscopic images. FL/FL upper GI w air IMPRESSION: Gastroesophageal reflux otherwise unremarkable exam.
== END 2022-09-20 08:31 | disposition home or self-care (01) ==
LOC: HO.US 08:30
PROVIDERS: PCP Internal Medicine; Visit Provider Physician Assistant Surgical
DX: E66.01 Morbid (severe) obesity due to excess calories (principal)
CPT/HCPCS: 74246; 76705; 76981

== ENCOUNTER → 2022-09-20 08:31 | Outpatient (BNV) | payer MEDICAID, SELFPAY | PROVIDERS: PCP Internal Medicine; Visit Provider Radiology Diagnostic Radiology | DX: Z01.818 Encounter for other preprocedural examination (principal) | CPT/HCPCS: 74246 ==

== ENCOUNTER 2022-09-28 12:39 | Outpatient (AMB) | payer MEDICAID, SELFPAY ==
--- NOTE | 2022-09-28 12:43 | MHC.OFFVISWM ---
Intake VS Expanded 09/28/22 12:49 Height 4 ft 11 in Weight 193 lb BMI 39.0 BP 139/80 Blood Pressure Location Rt brachial Blood Pressure Position Sitting Pulse 70 Pulse Source Pulse Oximeter Temp 98.1 F Temperature Source Temporal Artery Scan Pulse Oximetry 97 Oxygen Delivery Method Room Air Body Fat 86.6 Body Fat Percentage 44.9 Free Fat Mass 106.2 Muscle Mass 101.0 Visceral Mass 13.0 Water Mass 75.6 BMR 1,496 Intake Visit Reasons: (OV) F/U SWL Assistant Hall Director Required: Yes Assistant Hall Director Name: katelin cmi Allergies No Known Allergies Allergy (Verified 09/28/22 12:47) Medication List - Last Reconciled 09/28/22 by TIFFANY Fox cholecalciferol (vitamin D3) 25 mcg PO DAILY fluoxetine 20 mg PO DAILY ibuprofen 200 mg PO Q6H PRN loratadine-pseudoephedrine 5-120 mg ER (Loratadine-D) 1 tab PO Q12H thiamine HCl (vitamin B1) 100 mg PO DAILY 90 days vitamin A palmitate 3,000 mcg PO DAILY 90 days HPI HPI Comments History of Present Illness Details The patient is a pleasant 47 year old female who returns to the clinic for pre-operative surgical weight loss management. They were last seen in the office on 09/01/22, recorded weight at that time was 199.4 pounds, with a BMI of 40.3. Today's weight is 193 pounds and BMI is 39. There has been a weight loss of 19.4 pounds since initiating the surgical weight loss program on 07/15/22 with a total body weight loss of 9.1 %. Pre op work up completed as follows: SWL classes:? 09/14 BH appts: cleared-08/13/22 ? ? RD appts: cleared-08/31/22 Labs: 07/26/22-low A,D, B1 H. pylori: 07/15/22-neg CXR: 08/05/22-nad EK08/05/22-normal ABD U/S: 09/20/22-fatty liver, cholelithiasis UGI: 09/20/22-gerd The patient reports she is doing very well. Denies abdominal pain. Has had intermittent post prandial nausea 30-60 minutes, but this was before starting in our program. Current meal plan includes: 2 Orgain shakes First shake, (1 scoop in 8 oz low fat unsweetened almond milk) at 630am-830am Second shake, (1/2 scoop in 8 oz low fat unsweetened almond milk) at 130am-1230pm 1 protein bar (Zone Perfect bars) at 230pm-430pm. Dinner at 6pm (8 forks of protein and 8 forks of salad/vegetables). Drinking 64 oz of water Current exercise plan includes: walking outside 1 x per week? 2 miles daily treadmill, ? 3 x per week 250-300 calories on the treadmill.? ? 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 Sexual orientation: Straight/Heterosexual Gender identity: Female Female Reproductive History Menstrual Age of Menarche: 10 Review of Systems Const All systems reviewed & are unremarkable except as noted in HPI and below Physical Exam Const General: healthy appearing and no acute distress Resp Effort & Inspection: normal respiratory effort Auscultation: clear to auscultation bilaterally Cardio Rate: regular rate Rhythm: regular rhythm GI Auscultation: normal bowel sounds Extrem General: Yes normal to inspection Assessment & Plan Assessment & Plan (1) Obesity (BMI 30-39.9): Code(s): E66.9 - Obesity, unspecified Plan: change to 2 shakes, 1 scoop each and a bar and a meal Increase exercise to 5 days per week Refer to Dr Elise for continued care (2) Cholelithiasis: Code(s): K80.20 - Calculus of gallbladder without cholecystitis without obstruction Plan: asymptomatic, however will defer to Dr Elise for decision making on elective cholecystectomy. Coding Level of Care Code Est Pt Level 3 (34066) Diagnoses Obesity (BMI 30-39.9) E66.9 Cholelithiasis K80.20
[2022-09-28 12:49] VITALS: BP 139/80; PULSE 70; TEMP 36.7; O2SAT 97; BMI 39.0
== END 2022-09-28 13:10 | disposition home or self-care (01) ==
PROVIDERS: PCP Internal Medicine; Visit Provider Physician Assistant Surgical
DX: E66.9 Obesity, unspecified (principal); K80.20 Calculus of gallbladder without cholecystitis without obstruction
CPT/HCPCS: 99213

== ENCOUNTER → 2022-09-28 12:39 | Outpatient (BNVA) | payer MEDICAID, SELFPAY | PROVIDERS: PCP Internal Medicine; Visit Provider Physician Assistant Surgical | DX: E66.9 Obesity, unspecified (principal); Z68.39 Body mass index [BMI] 39.0-39.9, adult; K80.20 Calculus of gallbladder without cholecystitis without obstruction | CPT/HCPCS: 99212; 99213 ==

== ENCOUNTER → 2022-10-12 13:40 | Outpatient (BNVA) | payer OTHER, SELFPAY | PROVIDERS: PCP Internal Medicine; Visit Provider Surgery ==

== ENCOUNTER 2022-10-13 08:06 | Outpatient (AMB) | payer OTHER, SELFPAY ==
[2022-10-13 14:49] VITALS: BMI 39.3
--- NOTE | 2022-10-13 14:49 | A.OFFVIS_ITS ---
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* Allergies No Known Allergies Allergy (Verified 10/13/22 14:51) Medication List - Last Reconciled 10/13/22 by Roel Monzon MD cholecalciferol (vitamin D3) 25 mcg PO DAILY fluoxetine 20 mg PO DAILY ibuprofen 200 mg PO Q6H PRN loratadine-pseudoephedrine 5-120 mg ER (Loratadine-D) 1 tab PO Q12H thiamine HCl (vitamin B1) 100 mg PO DAILY 90 days vitamin A palmitate 3,000 mcg PO DAILY 90 days HPI TV Consult/Transfer Ted *GRINDER SET UP OPERATOR THREAD* HPI Details Start time: 2.30pm, End time: 3.10pm ?I spent 35 minutes speaking with the patient on the phone plus an additional 5 minutes reviewing and updating records for a total of 40 minutes HPI Comments History of Present Illness Details Overall weight loss: 17lbs, or 8.03% TBWL Is doing 3 Orgain protein shakes (1 scoop in 8oz almond milk), one [place] protein bar and one meal (8 forks of protein and 8 forks of salad or vegetables) Exercise: is doing treadmill x3/wk for 300 calories and outside walking PFSH Medical History (Updated 10/13/22 @ 14:54 by Roel Monzon MD) Acute arthritis Anxiety Carpal tunnel syndrome BENITO III (cervical intraepithelial neoplasia grade III) with severe dysplasia Depression Seasonal allergic rhinitis Surgical History Hx of colonoscopy Tubal ligation status Family History Mother HTN (hypertension) A-fib Arthritis Father Diabetes HTN (hypertension) Sister Lupus Social History Household Members: Spouse Housing: House Alcohol intake: current Alcohol intake frequency: holidays/special occasions only Patient Tobacco Use Status: Never used Tobacco service: No Current occupational status: employed 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 Plan for lap sleeve gastrectomy including upper GI endoscopy. All tests has been completed and reviewed and the patient is cleared for the surgery. ?If diaphragmatic or ventral hernias are present at time of surgery, these will be repaired laparoscopically as well. Risks and complications were discussed in detail including possible conversion to an open procedure, anastomotic leak, bleeding requiring transfusion, small bowel obstruction, , DVT and pulmonary embolism, cardiac, or pulmonary complications, as shelter complications such as anastomotic ulcer, insufficient weight loss and vitamin deficiencies. I emphasized the importance of close follow-up, adherence to instructions and good communication. So far she has proven to be an excellent communicator and very compliant with all our directions accomplishing a great weight loss. I believe that she is an excellent candidate and she is ready. 2. Continue same nutritional plan of 3 Orgain protein shakes (1 scoop in 8oz almond milk), one [place] protein bar and one meal (8 forks of protein and 8 forks of salad or vegetables) 3. Exercise: increase treadmill to daily for 300 calories. The goal is to lose 2000 calories per week on the treadmill. Continue outside walking in addition to the treadmill and not in replacement of the treadmill 4. Send me weight measurements weekly (2) BMI 39.0-39.9,adult: Code(s): Z68.39 - Body mass index [BMI] 39.0-39.9, adult (3) Cholelithiasis: Code(s): K80.20 - Calculus of gallbladder without cholecystitis without obstruction (4) Depression: Code(s): F32.A - Depression, unspecified (5) Anxiety: Code(s): F41.9 - Anxiety disorder, unspecified Telehealth Telehealth Location of provider rendering services: practice address Location of patient: address on file Patient Identification confirmed using: Name, : Yes Telehealth method: voice only Patient verbally consented to treatment: Yes Patient verbally consented to billing insurance company: Yes Patient informed of any privacy concerns related to visit: Yes Minutes spent on Phone/Video with Pt.: 40 Coding Level of Care Code Tele Est Pt Level 4 (30376) Diagnoses Obesity E66.9 BMI 39.0-39.9,adult Z68.39 Cholelithiasis K80.20 Depression F32.A Anxiety F41.9 Time Spent (min) 40
== END 2022-10-13 15:10 | disposition home or self-care (01) ==
LOC: HO.HBS 08:07
PROVIDERS: PCP Internal Medicine; Visit Provider Surgery
DX: E66.9 Obesity, unspecified (principal); Z68.39 Body mass index [BMI] 39.0-39.9, adult; K80.20 Calculus of gallbladder without cholecystitis without obstruction
CPT/HCPCS: 99214

== ENCOUNTER → 2022-10-13 08:06 | Outpatient (BNVA) | payer OTHER, SELFPAY | PROVIDERS: PCP Internal Medicine; Visit Provider Surgery ==

== ENCOUNTER 2022-10-20 10:04 | Outpatient (AMB) | payer OTHER, SELFPAY ==
--- NOTE | 2022-10-20 12:48 | MHC.OFFVISWM ---
Intake VS Expanded 10/20/22 13:43 Height 4 ft 11 in Weight 194 lb 6 oz BMI 39.3 Body Fat 83.6 Body Fat Percentage 43 Free Fat Mass 110.8 Visceral Mass 12 Water Mass 79 BMR 1,547 Intake Visit Reasons: TV Pre Op LSG 11/02/22 *[facility]* Allergies No Known Allergies Allergy (Verified 10/13/22 14:51) HPI TV Pre Op LSG 11/02/22 *[facility]* HPI Details Start time: 1.37pm, End time: 2pm ?I spent 18 minutes speaking with the patient on the phone plus an additional 5 minutes reviewing and updating records for a total of 23 minutes HPI Comments History of Present Illness Details Overall weight loss: 17lbs, or 8.03% TBWL Is doing 3 Orgain protein shakes (1 scoop in 8oz almond milk), one [place] protein bar and one meal (8 forks of protein and 8 forks of salad or vegetables) 3. Exercise: treadmill to daily for 300 calories. [facility] Medical History (Updated 10/13/22 @ 14:54 by Roel Monzon MD) Anxiety Depression BENITO III (cervical intraepithelial neoplasia grade III) with severe dysplasia Carpal tunnel syndrome Acute arthritis Seasonal allergic rhinitis Surgical History Hx of colonoscopy Tubal ligation status Family History Mother HTN (hypertension) A-fib Arthritis Father Diabetes HTN (hypertension) Sister Lupus Social History Household Members: Spouse Housing: House Alcohol intake: current Alcohol intake frequency: holidays/special occasions only Patient Tobacco Use Status: Never used Tobacco service: No Current occupational status: employed 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 Plan for lap sleeve gastrectomy including upper GI endoscopy. All tests has been completed and reviewed and the patient is cleared for the surgery. ?If diaphragmatic or ventral hernias are present at time of surgery, these will be repaired laparoscopically as well. Risks and complications were discussed in detail including possible conversion to an open procedure, anastomotic leak, bleeding requiring transfusion, small bowel obstruction, , DVT and pulmonary embolism, cardiac, or pulmonary complications, as watermelon harvesting supervisor complications such as anastomotic ulcer, insufficient weight loss and vitamin deficiencies. I emphasized the importance of close follow-up, adherence to instructions and good communication. So far she has proven to be an excellent communicator and very compliant with all our directions accomplishing a great weight loss. I believe that she is an excellent candidate and she is ready. 2. Preop prescriptions were provided and explained the purpose of each one. Need to be purchased preop. Start Pantoprazole now as you get it from the pharmacy, 1 pill per day. Sucralfate and Zofran are for after surgery as needed. 3. Bowel prep: please do 7 packets ?of Miralax mixing each one with a an 8oz glass of water, crystal light, gatorade zero, or propel ?TWO DAYS before your surgery date and the same amount the day BEFORE your surgery. Continue the protein shakes during? the bowel prep. 4. Needs to purchase 1oz medicine cups . 5. Needs to purchase Children's liquid Tylenol for postop pain control. 6. She needs to stop the Ibuprofen as of TODAY. Avoid aspirin, motrin, Advil, Aleve, Ibuprofen, Naproxyn. Tylenol is OK. 7. She needs to purchase the Celebrate 4:1 protein shakes from the hospital's gift shop. 8. Will do basic preop blood work-up any day between 10/21/22 and Tuesday10/22/22 fasting for 12 hours and is scheduled to see the Anesthesiologist prior to the day of surgery. 9. Importance of adherence to postop folllow-up and recommendations was underscored and she understands that. 10. Stop food and bars as of TODAY 10/20/22 and continue with 4 ?ORGAIN protein shakes (ONE scoop EACH in 8oz almond milk) at 7am-9am, 10am-12pm, 1pm-3pm, 4pm-6pm and one more Orgain protein shake with TWO scoops in 8oz of almond milk at 7pm-9pm 11. No soups, broths or V8 12. The patient's?medical?history has been reviewed and they are considered low risk for post op DVT and therefore DVT prophylaxis is not considered necessary. Travel after surgery was reviewed. The patient has not disclosed any travel plans during the first 30 days after surgery and they have been advised that within the first 30 days after surgery any bus, plane, train or car travel over 2 hours in duration is contraindicated due to the possibility of developing blood clots from immobility. Any travel, needs to include periods of ambulation of 10 minutes in duration every 2 hours.? Patient was instructed to discuss any plans for travel during this period with their bariatric surgeon.? 13. Please take at the day of surgery the following medications: NONE 14. Stop any control pills and don't use them for one month after surgery 15. Absolutely no smoking or vaping, or marijuana until the surgery and for at least the first 4 weeks. Only nicotine patches are allowed. 16. You MUST buy a body composition scale BEFORE your surgery. Send me weight measurements tomorrow and then on the day of surgery before you go to the hospital. 17. Avoid any steroids by mouth for any reason. Let me know if someone prescribes them to you (2) BMI 39.0-39.9,adult: Code(s): Z68.39 - Body mass index [BMI] 39.0-39.9, adult Orders: Orders TSH reflex Free T4 Today E66.9 - Obesity, unspecified, Z68.39 - Body mass index [BMI] 39.0-39.9, adult Prothrombin Time INR Today E66.9 - Obesity, unspecified, Z68.39 - Body mass index [BMI] 39.0-39.9, adult Hemoglobin A1c Today E66.9 - Obesity, unspecified, Z68.39 - Body mass index [BMI] 39.0-39.9, adult Partial Thromboplastin Time Today E66.9 - Obesity, unspecified, Z68.39 - Body mass index [BMI] 39.0-39.9, adult Complete Blood Count Auto Diff Today E66.9 - Obesity, unspecified, Z68.39 - Body mass index [BMI] 39.0-39.9, adult Comprehensive Met. Panel Today E66.9 - Obesity, unspecified, Z68.39 - Body mass index [BMI] 39.0-39.9, adult Type and Screen Today E66.9 - Obesity, unspecified, Z68.39 - Body mass index [BMI] 39.0-39.9, adult Lipid Panel Today E66.9 - Obesity, unspecified, Z68.39 - Body mass index [BMI] 39.0-39.9, adult C Reactive Protein Today E66.9 - Obesity, unspecified, Z68.39 - Body mass index [BMI] 39.0-39.9, adult Insulin Today E66.9 - Obesity, unspecified, Z68.39 - Body mass index [BMI] 39.0-39.9, adult Medications: New pantoprazole 40 mg PO DAILY 30 tabs 2RF K21.9 - Gastro-esophageal reflux disease without esophagitis sucralfate 10 mL PO BID 400 mL 2RF K21.9 - Gastro-esophageal reflux disease without esophagitis ondansetron Only take one every 12 hours as needed if you have nausea 4 mg PO Q12H 20 tabs 0RF nausea and vomiting R11.0 - Nausea polyethylene glycol 3350 (Miralax) Mix each packet with 8oz of water, Crystal light, or Gatorade zero, or Propel and do 7 packets TWO days prior to surgery date and another 7 packets on the day before the surgery date 17 grams PO DAILY 14 ea 0RF Z01.818 - Encounter for other preprocedural examination Telehealth Telehealth Location of provider rendering services: practice address Location of patient: address on file Patient Identification confirmed using: Name, : Yes Telehealth method: voice only Patient verbally consented to treatment: Yes Patient verbally consented to billing insurance company: Yes Patient informed of any privacy concerns related to visit: Yes Minutes spent on Phone/Video with Pt.: 23 Coding Level of Care Code Tele Est Pt Level 3 (73236) Diagnoses Obesity E66.9 BMI 39.0-39.9,adult Z68.39
[2022-10-20 13:43] VITALS: BMI 39.3
== END 2022-10-20 14:02 | disposition home or self-care (01) ==
LOC: HO.HBS 10:04
PROVIDERS: PCP Internal Medicine; Visit Provider Surgery
DX: E66.9 Obesity, unspecified (principal); Z68.39 Body mass index [BMI] 39.0-39.9, adult
CPT/HCPCS: 99213

== ENCOUNTER → 2022-10-20 10:04 | Outpatient (BNVA) | payer OTHER, SELFPAY | PROVIDERS: PCP Internal Medicine; Visit Provider Surgery ==

== ENCOUNTER 2022-10-22 12:55 | Outpatient (REF) | payer OTHER, SELFPAY ==
[2022-10-22 13:10] LABS: MANUAL DIFF FLAG NO
[2022-10-22 14:11] LABS: Prothrombin Time 12.6 SEC (11.1-13.3)
[2022-10-22 14:13] LABS: Basophils Percent Auto 0.3 % (0-2); Eosinophils Absolute Auto 0.1 X10*3/uL (0.0-0.4); Eosinophils Percent Auto 0.7 % (0-4); Hematocrit 42.8 % (37.0-47.0); Imm Gran Abs Auto 0.03 X10*3/uL (0.00-0.03); Imm Gran Pct Auto 0.3 % (0.0-0.4); Lymphocytes Absolute Auto 2.6 X10*3/uL (1.2-4.9); Lymphocytes Percent Auto 27.4 % (20-40); Mean Corpuscular HGB Conc 32.7 g/dl (31.0-35.0); Mean Corpuscular Volume 85.6 fL (80.0-98.0); Mean Platelet Volume 10.6 fL (9.4-12.3); Monocytes Absolute Auto 0.7 X10*3/uL (0.1-1.2); Monocytes Percent Auto 7.5 % (2-11); Neutrophils Percent Auto 63.8 % (45-73); Platelet Count 288 X10*3/uL (160-400); Red Cell Distribution Width 13.2 % (11.0-16.0); White Blood Count 9.5 X10*3/uL (4.8-10.8)
[2022-10-22 14:14] LABS: Partial Thromboplastin Time 31.9 SEC (26.0-36.4)
[2022-10-22 15:06] LABS: Estimated Average Glucose 94 mg/dL; Hemoglobin A1c % 4.9 % (<6.0)
[2022-10-22 16:29] LABS: Alanine Aminotransferase 17 U/L (0-31); Albumin Level 4.3 g/dL (3.5-5.0); Alkaline Phosphatase 54 U/L (39-117); Anion Gap 14 (12-20); Aspartate Amino Transferase 20 U/L (5-31); Bilirubin Total 0.6 mg/dL (0.0-1.0); Blood Urea Nitrogen 20 mg/dL (9-16); C Reactive Protein 1.44 mg/dL (< or = 0.50); Calcium 9.4 mg/dL (8.4-10.2); Carbon Dioxide 25 mmol/L (22-29); Chloride 106 mmol/L (96-108); Cholesterol 178 mg/dL (<200); Estimated Glomerular Filt Rate > 60; Glucose Random 72 mg/dL (60-115); HDL Cholesterol 49 mg/dL (>40); Insulin 11 uU/mL (2-29); LDL Cholesterol Calculated 114 mg/dL (<100); Potassium 4.4 mmol/L (3.3-5.1); Sodium 141 mmol/L (135-145); TSH reflex Free T4 1.27 uIU/mL (0.32-4.0); Total Protein 8.2 g/dL (6.5-8.0); Triglycerides 76 mg/dL (<150)
== END 2022-10-22 12:56 | disposition home or self-care (01) ==
LOC: HO.LAB 12:55
PROVIDERS: PCP Internal Medicine; Visit Provider Surgery
DX: E66.9 Obesity, unspecified (principal); Z68.39 Body mass index [BMI] 39.0-39.9, adult
CPT/HCPCS: 36415; 80053; 80061; 83036; 83525; 84443; 85025; 85610; 85730; 86140

== ENCOUNTER 2022-11-02 08:35 | Inpatient (IN) | payer OTHER, SELFPAY ==
[2022-10-27 11:26] VITALS: BMI 38.0
--- NOTE | 2022-10-27 23:23 | MHC.SHP ---
Pre-Procedural Eval Section A Date of Service: 10/27/22 The patient is an INPATIENT: Yes The History & Physical has been completed within 30 days and I have reviewed it.: Yes Section B Chief Complaint: Obesity, unspecified Relevant Family History (Specify if Yes): No Relevant Social History: None Present Medications: None Medical History: No relevant PMH History of Previous Operations: No relevant previous surgery Allergies: Allergies Allergy/AdvReac Type Severity Reaction Status Date / Time No Known Allergies Allergy Verified 10/27/22 11:24 Review of Systems Sugical H&P ROS: Negative: Constitution, Cardiovascular, Respiratory, Neurological, Psychiatric, Hem-Onc, Allergic/Immunologic, Gastrointestinal, Genitourinary, Musculoskeletal, Integumentary, Endocrine and Eyes/Ears/Nose/Throat Exam Surgical H&P Exam: Normal: HEENT, Normal: Heart, Normal: Lungs, Normal: Extremities, Normal: Abdomen, Normal: Skin and Normal: Neurological Plan Diagnosis/Plan: Unchanged I have reviewed the history and physical and performed a pertinent physical examination on my patient. No changes have occurred unless specified. Time Spent With Patient Time: Total time managing care of this patient today ____ minutes.
--- NOTE | 2022-11-01 09:17 | P.CONAN_ITS ---
Documented by User: Mary Ellen Kaur NP 11/01/22 09:18 HPI - Anesthesia Eval Consult details Narrative: 47yo F for Gastrectomy Sleeve,EGD,poss diaphragmatic hernia,poss ventral hernia,poss open, s/p tubal PMFSH Active Problems Active Problems: All Active Problems (Updated 10/13/22 @ 14:54 by Roel Monzon MD) Anxiety (Acute) Depression (Acute) BMI 39.0-39.9,adult (Acute) Obesity (Acute) Cholelithiasis (Acute) Obesity (BMI 30-39.9) (Acute) Morbid obesity (Acute) Right shoulder injury (Acute) Left lateral epicondylitis (Acute) Right shoulder tendonitis (Acute) Carpal tunnel syndrome on both sides (Acute) Normal vulvar exam (Acute) Hemorrhoids (Acute) Diverticulosis (Acute) Tubular adenoma (Acute) Encounter for screening colonoscopy (Acute) Postmenopausal bleeding (Acute) Well woman exam (Acute) Past Medical History Medical History Anxiety Depression BENITO III (cervical intraepithelial neoplasia grade III) with severe dysplasia Carpal tunnel syndrome Acute arthritis Seasonal allergic rhinitis Family History Family History Mother HTN (hypertension) A-fib Arthritis Father Diabetes HTN (hypertension) Sister Lupus Family history of problems with anesthesia: No Surgical History Surgical History Hx of colonoscopy Tubal ligation status Social History Social History Household Members: Spouse Housing: House Are you a primary patient care director to a significant other at home: No Do you presently have visiting nurse or other home services: No Alcohol intake: current Alcohol intake frequency: does not drink Patient Tobacco Use Status: Never used Tobacco service: No Current occupational status: employed 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 Sexual orientation: Straight/Heterosexual Gender identity: Female Meds Allergies Allergy/AdvReac Type Severity Reaction Status Date / Time No Known Allergies Allergy Verified 11/02/22 08:41 Home Medications Medication Instructions Recorded Confirmed Last Taken Type loratadine 5 mg-pseudoephedrine ER 1 tab PO Q12H 02/23/22 10/27/22 Unknown History 120 mg tablet,extended release,12hr (Loratadine-D) ergocalciferol (vitamin D2) 1,250 1,250 mcg PO QWEEK 11/02/22 11/02/22 10/30/22 History mcg (50,000 unit) capsule (Vitamin D2) Exam Exam Date and Time: November 01, 2022 0917 Height,Weight and Vital Signs: Height 4 ft 11 in Weight 85.275 kg Pertinent Lab Results Pertinent Lab Results: Laboratory Tests 10/22/22 13:05 Blood Type A Positive Antibody Screen NEGATIVE Laboratory Tests 10/22/22 13:09 WBC 9.5 Hgb 14.0 Hct 42.8 Plt Count 288 Sodium 141 Potassium 4.4 Chloride 106 Carbon Dioxide 25 BUN 20 H Creatinine 0.70 Narrative Narrative: EKG 07/2022 Vent. Rate : 069 BPM Atrial Rate : 069 BPM P-R Int : 140 ms QRS Dur : 082 ms QT Int : 416 ms P-R-T Axes : 024 006 016 degrees QTc Int : 445 ms Normal sinus rhythm Normal ECG No previous ECGs available Assessment and Plan Assessment Anesthesia Assessment: Chart Reviewed Final Anesthetic Review Family History of Problems with Anesthesia: No Documented by User: Martha Delarosa MD 11/02/22 10:07 [facility] Past Medical History Medical History Anxiety Depression BENITO III (cervical intraepithelial neoplasia grade III) with severe dysplasia Carpal tunnel syndrome Acute arthritis Seasonal allergic rhinitis Family History Family History Mother HTN (hypertension) A-fib Arthritis Father Diabetes HTN (hypertension) Sister Lupus Surgical History Surgical History Hx of colonoscopy Tubal ligation status History of Problems with Anesthesia: No Social History Social History Household Members: Spouse Housing: House Are you a primary patient care director to a significant other at home: No Do you presently have visiting nurse or other home services: No Alcohol intake: current Alcohol intake frequency: does not drink Patient Tobacco Use Status: Never used Tobacco service: No Current occupational status: employed 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 Sexual orientation: Straight/Heterosexual Gender identity: Female Meds Allergies Allergy/AdvReac Type Severity Reaction Status Date / Time No Known Allergies Allergy Verified 11/02/22 08:41 Home Medications Medication Instructions Recorded Confirmed Last Taken Type loratadine 5 mg-pseudoephedrine ER 1 tab PO Q12H 02/23/22 10/27/22 Unknown History 120 mg tablet,extended release,12hr (Loratadine-D) ergocalciferol (vitamin D2) 1,250 1,250 mcg PO QWEEK 11/02/22 11/02/22 10/30/22 History mcg (50,000 unit) capsule (Vitamin D2) Exam Airway Mallampati Class: II TM Dist: >3cm Neck ROM: Full Loose/Missing/Broken Teeth: No Heart: RRR Lungs: CTA Assessment and Plan Assessment Anesthesia Assessment: Anesthesia Plan Discussed Final Anesthetic Review History of Problems with Anesthesia: No NPO: Yes ASA Class: II Final Preanesthetic Review: Meds/Allgs Chart Reviewed, Consent Obtained/Reviewed and Anes Risks/Benef Reviewed Patient Risk: Low Procedure Risk: Intermediate Anesthetic Plan Anesthetic Plan: GA Disposition: Standard PACU
[2022-11-02] VITALS (14 sets, daily range): BP systolic 134–177; BP diastolic 64–93; PULSE 77–97; RESP 14–20; TEMP 36–36.6; O2SAT 95–100
[2022-11-02] MEDS: Lactated Ringers 1,000 ML 999 ML IV (09:04)
[2022-11-02] MEDS: Aprepitant 32 MG/4.4 ML VIAL IVPUSH (09:08)
--- NOTE | 2022-11-02 10:04 | P.BOP_ITS ---
Brief Operative Note Date of Service: 11/02/22 Pre-op diagnosis: Severe obesity with comorbidities (see below) Post-op diagnosis: same (& abdominal adhesions) Procedure: INITIAL PATIENT BMI ON PRESENTATION AT OUR OFFICE: 42.7 kg/m2 LAST BMI BEFORE SURGERY: 39.3 kg/m2 COMORBIDITIES: depression, anxiety, BENITO III, GERD, liver steatosis, cholelithiasis, liver fibrosis, nephrolithiasis ?The patient presented to the Weight Management Program with significant obesity that was negatively impacting the patient's comorbidities as listed above.? The program is a phased program with a special focus on preoperative medical weight management to promote substantial weight loss and prepare the patients for the second phase of the program: bariatric surgery. The patient participated in an intensive weekly lifestyle ?intervention and exercise program during which the patient ?has lost between the initial office visit and the last preoperative visit 17lbs, or 8.03% of initial actual body weight. It was deemed appropriate for the patient to now have bariatric surgery. In light of the current Covid-19 pandemic and the well documented strong association of obesity and increased risk of worse outcomes if infected with Covid-19 (REFERENCES: https://pubmed.ncbi.nlm.nih.gov/01747632/ ,? https://pubmed.ncbi.nlm.nih.gov/73490655/ ), any delay in undergoing bariatric surgery may lead to the patient's worsening health condition and increased?risk of more severe Covid-19 disease if infected. In addition a recent?study from [facility] published in [employer] [facility] on 02/02/2021 ([email or web address]) found that, among patients with obesity, substantial weight loss achieved with surgery was associated with improved outcomes of COVID-19 infection. The findings suggest that obesity can be a modifiable risk factor for the severity of COVID- 19 infection. In addition, the patient met the BMI-criteria for bariatric surgery based on the BMI on initial presentation. The patient should not be penalized for achieving such weight loss because ?it is not sustainable long-term without surgical intervention and it was achieved in preparation for bariatric surgery ?under my direction and based on my published research ([email or web address] and? https://www.soard.org/article/[email or web address](11)35733-X/pdf ) ?that a 10% preoperative weight loss improves long-term weight loss after surgery and reduces perioperative complications.? Insurance carriers such as [facility] have endorsed my recommendations ?and have included in their policies criteria to include a 10% preoperative weight loss requirement. PROCEDURE: Esophago-gastroscopy,laparoscopic lysis of adhesions, laparoscopic ?sleeve?gastrectomy and laparoscopic gastropexy INDICATIONS: This is a 47 year-old female who was electively scheduled for laparoscopic, possibly open?sleeve?gastrectomy. The risks and complications of the procedure were discussed with the patient in advance, particularly the possibility of ; pulmonary embolism; staple line leak; bleeding; GERD; cardiac, pulmonary, or renal complications; as well as long-term problems such as insufficient weight loss, vitamin deficiency, strictures, or ulcers. The patient understood all the risks, and was in agreement to proceed with surgery. DESCRIPTION OF PROCEDURE: After informed consent was obtained from the patient, the patient was given preoperative antibiotics, and was transferred to the operating room. After successful induction of general anesthesia, pneumatic compression devices were placed on both lower extremities. An upper endoscopy was performed next. The oropharynx and esophagus appeared to be within normal limits. There was no diaphragmatic hernia present consistent with the findings of the preoperative upper GI. The stomach was entered. Then after all fluid and air were suctioned and the stomach was fully decompressed, the scope was withdrawn and secured in the mid esophagus. The patient was then prepped and draped in the usual sterile manner, and abdominal access was established at the right upper quadrant with the Jazzy technique. A 12 mm blunt port was inserted, and the abdomen was insufflated with CO2 to a pressure of 15 mmHg. Under direct visualization, additional ports were placed, specifically two 5 mm Versi-step ports to the left upper quadrant, and a 5 mm Versi-Step port to the right upper quadrant. 1% lidocaine plain was used to infiltrate all port sites as well as all fascia defects. Following that, the patient was placed in a steep reverse Trendelenburg position. An additional 5 mm port was placed to the right flank for the Mediflex retractor that was used to retract the left lobe of the liver. The gastro-esophageal fat pad was opened with the ultrasonic device (Thunderbeat, Olympus) and the anterior esophagus and hiatus were exposed. The angle of His was opened with the ultrasonic device the fundus of the stomach from any diaphragmatic and splenic attachments. I then opened the gastrocolic ligament between the transverse colon and the greater curvature of the stomach with the ultrasonic device to enter the lesser sac and facilitate the ligation of the short gastric vessels. I started at a mid-point along the greater curvature and using the Thunderbeat, all short gastr ic vessels were divided all the way to the angle of His until the left henrique was completely dissected at its entirety. I then divided the gastro-colic ligament distally to a distance of about 3-4?cm proximal to the pylorus. There were extensive congenital adhesions between the pancreas and posterior gastric wall. Those were lysed completely with the ultrasonic device. Adhesiolysis took approximately 45 min to complete. The stomach was then divided transversely with one Endo BONY-45 purple, and four BONY-60 articulating purple loads using the SIGNIA stapler and loads. Every effort was made that the gastric?sleeve?had a tubular shape and an even caliber throughout. Once the?sleeve?resection was completed, the staple line of the gastric?sleeve?was reinforced with Hemoclips. The resected stomach was retrieved without difficulty from the Jazzy port. A gastropexy was then performed in order to prevent postoperative GERD and partial gastric volvulus. Several interrupted 2.0 Surgidac sutures were placed between the?sleeve's staple line and the previously divided greater omentum and gastro-colic ligament using the Endo-Stitch device. ?An upper endoscopy was performed. There was no narrowing at the GE junction. The scope was easily advanced all the way to the pylorus which was clearly visualized. There was no narrowing anywhere and the?sleeve's caliber was even throughout. The?sleeve's staple line was inspected and there was no evidence of ischemia, bleeding or dehiscence. At that point the gastroscope was withdrawn from the patient?s mouth while we were decompressing the bowel and the stomach from any remaining air. I looked into the lesser sac to see how the?sleeve?was situating and it was situating well. There was no bleeding from the staple line, spleen, or short gastric vessels. The Mediflex retractor was removed, and the undersurface of the liver was inspected and there was no bleeding. The patient was placed in supine position. I closed the fascial defect of the 12 mm port site with a figure of eight #1 Polysorb suture. Then 30cc Ropivacaine plain with 10 mg of Dexamethasone were used to infiltrate the fascial closure as well as all skin incisions. At this point, the abdomen was deflated, all ports were removed under direct vision, and no bleeding was noted from any of the port sites. The skin incisions were irrigated with saline and were closed with?4-0 absorbable monofilament sutures. Steri-Strips and OpSites were used to cover all incisions. The patient was extubated and was transferred in stable condition to the recovery room for further care. I was present and performed all gilmore parts of the procedure. Mr. Beauchamp was the first officer and flight instructor. There were no residents to assist with this case. Mekhi Monzon MD, PhD, FACS Surgeon: Roel Monzon MD Anesthesia: GETA, local and other (TAP block) Was an Online Project Manager used for this Procedure?: No Online Project Manager: Ted Beauchamp Estimated blood loss (mL): 10 IV fluids (mL): 1,850 Urine output (mL): 0 (No Panda to record output) Pathology: other (Stomach) Condition: stable Disposition: PACU
--- NOTE | 2022-11-02 10:06 | P.PNGS_ITS ---
Subjective Subjective Date of Service: 11/03/22 Interval history: Feels well. Mild incisional pain. She is tolerating phase 1 bariatric diet Physical Exam 2 Vital Signs: Vital Signs: Last Vital Signs Temp 97.9 F 11/02/22 08:56 Pulse 77 11/02/22 08:56 Resp 16 11/02/22 08:56 BP 139/73 11/02/22 08:56 Pulse Ox 98 11/02/22 08:56 BMI result Body Mass Index 38.0 GI: Inspection: Yes normal to inspection, Yes incision (clean, dry and intact) and Yes obesity Palpation (GI): Soft to palpation Extrem: Right lower extremity: normal to inspection (no calf tenderness) L eft lower extremity: normal to inspection (no calf tenderness) Objective Data Active Medications Lactated Ringer's (Lr) 1,000 mls @ 100 mls/hr IVCONT .Q10H SHAN Lactated Ringer's (Lr) 1,000 mls @ 999 mls/hr IV .Q1H1M SHAN Stop: 11/02/22 10:45 Last Admin: 11/02/22 09:04 Dose: 999 mls/hr Documented By: JONO Labs 11/03/22 05:43 11/03/22 05:43 Procedures Date of Service Date of Service: 11/03/22 Progress Note: A&P Assessment and plan (1) Obesity: Status: Acute Assessment and Plan: s/p laparoscopic sleeve gastrectomy, lysis of adhesions and gastropexy Doing well Will check am labs and if OK the patient will be discharged home (2) BMI 39.0-39.9,adult: Status: Acute (3) Anxiety: Status: Acute (4) Depression: Status: Acute (5) Cholelithiasis: Status: Acute (6) BENITO III (cervical intraepithelial neoplasia grade III) with severe dysplasia: Status: Acute (7) GERD (gastroesophageal reflux disease): Status: Acute (8) Nephrolithiasis: Status: Acute (9) Liver fibrosis: Status: Acute (10) Congenital intra-abdominal adhesions: Status: Acute (11) S/P laparoscopic sleeve gastrectomy: Status: Acute Time Spent With Patient Time: Total time managing care of this patient today ____ minutes. Quality Stroke Does the patient have a stroke diagnosis?: No VTE Prior VTE?: No VTE Risk Level:: Medical - moderate - high VTE Device Contraindication: N/A - Device Ordered VTE Drug Contraindication: Treatment Not Indicated
--- NOTE | 2022-11-02 12:20 | P.DS_ITS ---
DS: Providers Provider Date of Service: 11/03/22 Date of admission: 11/02/22 08:35 Primary care physician: Unknown Physician DS: Diagnosis Discharge Diagnosis (1) Obesity: Status: Acute (2) BMI 39.0-39.9,adult: Status: Acute (3) Anxiety: Status: Acute (4) Depression: Status: Acute (5) Cholelithiasis: Status: Acute (6) BENITO III (cervical intraepithelial neoplasia grade III) with severe dysplasia: Status: Acute (7) GERD (gastroesophageal reflux disease): Status: Acute (8) Nephrolithiasis: Status: Acute (9) Liver fibrosis: Status: Acute DS: Summary Hospital Course Hospital Course: ADMITTING DIAGNOSIS: obesity, BENITO III, anxiety, depression, arthritis ? DISCHARGE DIAGNOSIS: same, s/p laparoscopic sleeve gastrectomy ? PAST SURGICAL HISTORY: tubal ligation ? PROCEDURE: upper endoscopy, laparoscopic sleeve gastrectomy ? DISCHARGE SUMMARY: ? History of Present Illness: ? The patient is a?47 year-old woman with a BMI of?42.9 kg/m2 and associated co- morbidities as described above. The patient had extensive work-up,lost?25 lbs preoperatively and was electively scheduled for laparoscopic, possible open sle ana gastrectomy and gastropexy. Risks and complications of the surgery were discussed with the patient in advance, particularly the possibility of , pulmonary embolism, anastomotic leak, bleeding, bowel injury, GERD, cardiac, renal or pulmonary complications. The patient understood all the risks and was in agreement with the surgical plan. ? Hospital Course: ? The patient underwent an uneventful laparoscopic sleeve gastrectomy with gastropexy on the day of admission. Postoperatively, the patient was transferred to the surgical floor. The patient received IV Acetaminophen and IV dilaudid for pain control. Patient was started on bariatric phase 1 diet POD #0. On postoperative day one, the patient was feeling well without nausea, vomiting, fevers, or tachycardia. The patient had some mild incisional pain and the abdomen was soft. ? On the morning of postoperative day one, the patient was continued on 1 ounce of water or ice every half hour. During the day, the patient did fairly well, having some incisional pain, but able to ambulate adequately and to tolerate liquids well. ? Since the patient is doing well, we decided that the patient was ready to be discharged. The patient was given instructions to follow-up with me next week and to call my office for any fever over 101, persistent abdominal pain, nausea, vomiting, GERD, symptoms of DVT such as calf tenderness, or leg swelling, or pulmonary embolism such as chest pain or shortness of breath. The patient was also instructed to drink 40-60 ounces of liquids per day using the 1-ounce cups. The patient had been given prescriptions for Tylenol for pain, Zofran prn for nausea, and pantoprazole and carafate previously. The patient was encouraged to ambulate and use the incentive spirometer. The patient was allowed to shower, but no baths, and encouraged to stay active at home. All of these instructions were given to the patient personally. All questions were answered and the patient understood all instructions, the instructions were also given to the patient in print. Time Spent with Patient Time attestation: Total time managing care of this patient today ____ minutes. Discharge coordination time: Less than 30 minutes Quality: Safe Use of Opioids Does Pt have an Active Cancer Diagnosis on the Problem List?: No Quality: Stroke Does the patient have a stroke diagnosis?: No Physical Exam Vital Signs: Vital Signs: Last Vital Signs Temp 97.9 F 11/02/22 08:56 Pulse 77 11/02/22 08:56 Resp 16 11/02/22 08:56 BP 139/73 11/02/22 08:56 Pulse Ox 98 11/02/22 08:56 BMI result Body Mass Index 38.0 DS: Data Data Completed and Pending Pending studies at discharge: Pending at discharge 11/02/22 11:34 Surgical [PTH] Routine Discharge Plan Discharge Anticipated Discharge Date/Time: 11/03/22 10:21 Patient Disposition: Home, Self-Care Discharge Diagnosis: Severe obesity Referrals: Physician,Unknown J [Primary Care Provider] - 1 Week Discharge Medications: Continued Loratadine-D 5-120 mg tablet extended release 12 hr 1 tab PO Q12H pantoprazole 40 mg tablet,delayed release (DR/EC) 40 mg PO DAILY Qty: 30 2RF sucralfate 100 mg/mL suspension 10 ml PO BID Qty: 400 2RF ondansetron 4 mg tablet,disintegrating 4 mg PO Q12H Qty: 20 0RF Rx Instructions: Only take one every 12 hours as needed if you have nausea Discontinued vitamin A palmitate 3,000 mcg (10,000 unit) capsule 3,000 mcg PO DAILY 90 Days Qty: 90 0RF thiamine HCl (vitamin B1) 100 mg tablet 100 mg PO DAILY 90 Days Qty: 90 0RF ergocalciferol (vitamin D2) [Vitamin D2] 1,250 mcg (50,000 unit) capsule 1,250 mcg PO QWEEK Discharge Orders: Discharge Order (Routine); Ordered 11/03/22 Ordered By: Roel Monzon Activity on Discharge: No heavy lifting Stand Alone Forms: Patient Portal Discharge page Care Plan Goals: weight loss Health Concerns: obesity Plan of Treatment: No tub baths, sex or returning to work until discussed at first post op appointment. No exercise, alcohol, tobacco or illegal drug use. Continue to use incentive spirometer hourly while awake. Walk in home for 5- 10 minutes every 2 hours during the first week. Follow all instructions in the bariatric handbook and call with any questions.Discharge Instructions 1. Please call your doctor or come back to the emergency room should any new symptoms arise. 2. You will receive a courtesy call from [facility] 24-48 hours after discharge. 3. Activity: abstain from alcohol, practice limited stair climbing, no bending, no driving, no exercise, no illicit substances, no lifting, no sex, no tub bath, no work. 4. Diet: continue as discussed with Dr. Monzon. 5. Dressing Change/Wound Care: Your incision is covered by clear bandages and guaze underneath. If the area is tender, you may apply an ice pack for short intervals (no more than 20 minutes on, followed by at least 20 minutes off). Do not apply heat. Do not use creams, lotions, or topical antibiotics unless instructed to do so by your surgeon. These can cause infection or allergic reaction. 6. Call your doctor if: - Your temperature exceeds 101.5 F - You experience excessive pain or swelling - You have an unexpected reaction to medication - You have excessive bleeding - You experience continued vomiting/nausea - Your incision begins to separate - Your incision shows signs of infection such as increased redness, swelling, excessive pain, heat, or drainage (light blood or clear fluid is normal) 7. General instructions: No lifting greater than 5 lbs for 1 week and not more than 20lbs the next 3?weeks. No driving until seen at the office in 5-7 days after surgery. If you do not move your bowels in the next 2 days, please t ell?Dr. Monzon. Please walk around your home every hour or two to prevent blood clots from forming in your legs. You do not need to wake from sleeping to walk. Please sleep in a bed or couch to prevent kinking at the hips and knees. Please take your incentive spirometer (your lung electronic communications technician) home with you and use it for the next few days to prevent pneumonia. You may shower, no hot tubs, baths or swimming pools.?Please follow the post op diet instructions you are?given by Dr Arik deng? and text me daily at 5-6pm for an update.?If you have any issues or concerns or questions please communicate this to him via text.? The Celebrate shakes have all of the bariatric vitamins you need if you consume these shakes. If you are drinking other protein shakes, you will need to purchase the Celebrate multivitamins and calcium that are available in the hospital gift shop on the first floor of the [facility].??Do not take anything without first discussing with Dr Monzon. Please make sure you are consuming at least 40 ounces of fluids per day starting the?day AFTER your discharge from the hospital. Always drink 1-2 ml per minute using the 5ml?syringe. If you drink faster you may experience?bloating,?gas pain, burping, nausea or heartburn. In that case please slow down your pace and use the syringe to?understand better the?proper?pace and volume of drinking. Do not hesitate to contact the office with any questions at . The patient's medical history has been reviewed and they are considered low risk for post op DVT and therefore DVT prophylaxis is not considered necessary. Travel after surgery was reviewed. The patient has not disclosed any travel plans during the first 30 days after surgery and they have been advised that within the first 30 days after surgery any bus, plane, train or car travel over 2 hours in duration is contraindicated due to the possibility of developing blood clots from immobility. Any travel, needs to include periods of ambulation of 10 minutes in duration every 2 hours.? The patient was instructed to discuss any plans for travel during this period with their bariatric surgeon. Assessment: stable s/p laparoscopic sleeve gstrectomy
[2022-11-02 12:40] LABS: Hematocrit 40.5 % (37.0-47.0); Hemoglobin 13.2 g/dl (12.0-16.0)
[2022-11-02 12:48] LABS: Anion Gap 18 (12-20); Blood Urea Nitrogen 11 mg/dL (9-16); Calcium 8.9 mg/dL (8.4-10.2); Carbon Dioxide 21 mmol/L (22-29); Chloride 105 mmol/L (96-108); Creatinine Clr Calc Pharmacy 87.1; Estimated Glomerular Filt Rate > 60; Glucose Random 120 mg/dL (60-115); Potassium 3.6 mmol/L (3.3-5.1); Sodium 140 mmol/L (135-145)
[2022-11-02] MEDS: HYDROmorphone HCl 0.5 MG/0.5 ML SYRINGE 0.25 MG IVPUSH ×2 (12:49→12:54)
[2022-11-02] MEDS: oxyCODONE HCl Immed Release 5 MG TABLET PO (13:31)
--- NOTE | 2022-11-02 13:43 | PHA.MEDREC ---
Pharmacy Consult ? Medication Reconciliation Pharmacy has reviewed the medication reconciliation.
[2022-11-02] MEDS: Lactated Ringers 1,000 ML 100 ML IVCONT (14:24)
[2022-11-02] MEDS: ceFAZolin Sodium/Dextrose,Iso 2 GM/50 ML PIGGYBACK IV (15:06)
[2022-11-02] MEDS: Acetaminophen 1,000 MG/100 ML PIGGYBACK 400 MG IV (17:28)
[2022-11-02] MEDS: 0.9 % Sodium Chloride Flush 3 ML SYRINGE IVFLUSH (20:26)
[2022-11-02] MEDS: Famotidine/PF 20 MG/2 ML VIAL IVPUSH (20:26)
[2022-11-03] MEDS: Lactated Ringers 1,000 ML 100 ML IVCONT (00:18)
[2022-11-03 04:00] VITALS: BP 141/70; PULSE 88; RESP 16; TEMP 36.4; O2SAT 98
[2022-11-03] MEDS: Acetaminophen 1,000 MG/100 ML PIGGYBACK 400 MG IV (04:16)
[2022-11-03 07:14] VITALS: BP 159/81; PULSE 85; RESP 16; TEMP 36.2; O2SAT 98
[2022-11-03 07:18] LABS: MANUAL DIFF FLAG NO
[2022-11-03 07:30] LABS: Hematocrit 35.3 % (37.0-47.0); Hemoglobin 11.7 g/dl (12.0-16.0); Imm Gran Abs Auto 0.11 X10*3/uL (0.00-0.03); Imm Gran Pct Auto 0.9 % (0.0-0.4); Lymphocytes Percent Auto 8.1 % (20-40); Mean Corpuscular HGB Conc 33.1 g/dl (31.0-35.0); Mean Corpuscular Hemoglobin 28.3 pg (27.0-33.0); Mean Corpuscular Volume 85.3 fL (80.0-98.0); Mean Platelet Volume 11.5 fL (9.4-12.3); Monocytes Absolute Auto 0.8 X10*3/uL (0.1-1.2); Monocytes Percent Auto 6.5 % (2-11); Neutrophils Absolute Auto 10.2 x10*3/uL (2.0-8.3); Neutrophils Percent Auto 84.5 % (45-73); Platelet Count 269 X10*3/uL (160-400); Red Blood Count 4.14 X10*6/uL (4.20-5.50); Red Cell Distribution Width 12.9 % (11.0-16.0); White Blood Count 12.1 X10*3/uL (4.8-10.8)
[2022-11-03] MEDS: Famotidine/PF 20 MG/2 ML VIAL IVPUSH (07:55)
[2022-11-03 08:02] LABS: Anion Gap 15 (12-20); Blood Urea Nitrogen 8 mg/dL (9-16); Carbon Dioxide 24 mmol/L (22-29); Chloride 101 mmol/L (96-108); Creatinine Clr Calc Pharmacy 92.1; Estimated Glomerular Filt Rate > 60; Glucose Random 106 mg/dL (60-115); Potassium 3.4 mmol/L (3.3-5.1); Sodium 137 mmol/L (135-145)
--- NOTE | 2022-11-03 09:47 | MHC.CM.PN ---
PT REPORTS SHE LIVES WITH HER SPOUSE AND IS INDEPENDENT WITH CARE SHE HAS NO DME AND NO SERVICES AND WORKS SHE HAS NO HCP, SHE DID ACCEPT INFORMATION AND A BLANK DOCUMENT HER PCP IS TAVO BECKMAN DCP: HOME NO SERVICES VIA PRIVATE TRANSPORT
--- NOTE | 2022-11-03 09:58 | MHC.CM.PN ---
Patient is discharged to home self care. She has arranged for transport home.
--- NOTE | 2022-11-03 12:35 | HO.POSTANES ---
Post Anesthesia Evaluation Post Anesthesia Evaluation Date of Service: 11/03/22 Vital Signs: Vital Signs Temp Pulse Resp BP Pulse Ox O2 Del Method 11/03/22 07:14 97.1 F 85 16 159/81 H 98 Room Air 11/03/22 04:00 97.6 F 88 16 141/70 H 98 Room Air Anesthesia: General Endotracheal-GETA Mental Status: Awake Pain Control: Satisfactory Nausea/Vomiting: None Hydration: Adequate Anesthesia-Related Issues: No Anes. Related Issues
== END 2022-11-03 11:33 | disposition home or self-care (01) | DRG 403 ==
LOC: HO.SSSA 12:22 → HO.S3 13:25
PROVIDERS: Physician Assistant Surgical; Admitting Provider Surgery; PCP Internal Medicine; Visit Provider Surgery
PROC: 0DB64Z3 Excision of Stomach, Percutaneous Endoscopic Approach, Vertical (ICD-10-PCS; CPT 43845; principal; 2022-11-02 10:10)
DX: E66.01 Morbid (severe) obesity due to excess calories (principal); Q43.3 Congenital malformations of intestinal fixation; K74.00 Hepatic fibrosis, unspecified; K80.20 Calculus of gallbladder without cholecystitis without obstruction; D06.9 Carcinoma in situ of cervix, unspecified; F32.A Depression, unspecified; F41.9 Anxiety disorder, unspecified; N20.0 Calculus of kidney; K21.9 Gastro-esophageal reflux disease without esophagitis; Z68.39 Body mass index [BMI] 39.0-39.9, adult; Z79.899 Other long term (current) drug therapy
CPT/HCPCS: 36415; 80048; 85014; 85018; 85025; 86850; 86900; 86901; 88307; 88341; 88342; A4649; C9088; C9145; J0131; J0690; J1100; J1170; J2250; J2405; J2795; J3010

== ENCOUNTER → 2022-11-02 08:35 | Outpatient (BNV) | payer OTHER, SELFPAY | PROVIDERS: Admitting Provider Surgery; Visit Provider Surgery | DX: E66.01 Morbid (severe) obesity due to excess calories (principal); Z68.41 Body mass index [BMI] 40.0-44.9, adult; K66.0 Peritoneal adhesions (postprocedural) (postinfection) | CPT/HCPCS: 43659; 43775 ==

== ENCOUNTER 2022-11-04 16:41 | Outpatient (AMB) | payer OTHER, SELFPAY ==
--- NOTE | 2022-11-04 16:44 | MHC.OFFVISWM ---
Intake VS Expanded 11/04/22 16:45 Weight 180 lb 15.992 oz BP 147/78 H Blood Pressure Location Lt radial Pulse 84 Pulse Source Pulse Oximeter Temp 97.7 F Temperature Source Tympanic Pulse Oximetry 98 Oxygen Delivery Method Room Air Intake Visit Reasons: (OV) 2 Days PO LSG 11/02/22 Allergies No Known Allergies Allergy (Verified 11/02/22 08:41) HPI HPI Comments History of Present Illness Details Postop day 2, status post laparoscopic sleeve gastrectomy. Patient was instructed to come into the office as she was having difficulty understanding the instructions given to her by Dr. Monzon. With the assistance of certified medical research scientist, we went over the instructions and showed her how to download the instructions on her phone. She is now clear as to what to do. Vital signs are stable and she will go back home. [facility] Medical History (Updated 11/02/22 @ 12:20 by Roel Monzon MD) Nephrolithiasis GERD (gastroesophageal reflux disease) Anxiety Depression BENITO III (cervical intraepithelial neoplasia grade III) with severe dysplasia Carpal tunnel syndrome Acute arthritis Seasonal allergic rhinitis Surgical History (Updated 11/02/22 @ 12:20 by Roel Monzon MD) Hx of colonoscopy Tubal ligation status Family History Mother HTN (hypertension) A-fib Arthritis Father Diabetes HTN (hypertension) Sister Lupus Social History Household Members: Spouse Housing: House Are you a primary long term care pharmacist to a significant other at home: No Do you presently have visiting nurse or other home services: No Alcohol intake: current Alcohol intake frequency: does not drink Patient Tobacco Use Status: Never used Tobacco Substance Use Type: Marijuana service: No Current occupational status: employed 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 She will start her celebrate 4 in 1 shake tomorrow as instructed. She was additionally instructed to continue to text Dr. Monzon nightly. She will call the office with any further questions. Coding Level of Care Code Global (82605) Diagnoses S/P laparoscopic sleeve gastrectomy Z98.84
[2022-11-04 16:45] VITALS: BP 147/78; PULSE 84; TEMP 36.5; O2SAT 98
== END 2022-11-04 17:05 | disposition home or self-care (01) ==
PROVIDERS: PCP Internal Medicine; Visit Provider Physician Assistant Surgical
DX: Z98.84 Bariatric surgery status (principal)
CPT/HCPCS: 99024

== ENCOUNTER → 2022-11-04 16:41 | Outpatient (BNVA) | payer OTHER, SELFPAY | PROVIDERS: PCP Internal Medicine; Visit Provider Physician Assistant Surgical ==

== ENCOUNTER 2022-11-08 13:38 | Outpatient (AMB) | payer OTHER, SELFPAY ==
--- NOTE | 2022-11-08 13:45 | A.OFFVIS_ITS ---
Intake VS Expanded 11/08/22 13:48 BP 122/78 Blood Pressure Location Rt brachial Blood Pressure Position Sitting Pulse 88 Pulse Source Pulse Oximeter Temp 97.6 F Temperature Source Temporal Artery Scan Pulse Oximetry 96 Oxygen Delivery Method Room Air Height 4 ft 11 in Weight 177 lb BMI 35.7 Body Fat % 43.6 Body Fat Mass 77.2 Fat Free Mass 99.6 Visceral Fat Rating 11.0 Body Water % 40.1 Body Water Mass 71.0 Muscle Mass/Score 94.6 Basal Metabolic Rate/Score 1,402 Intake Visit Reasons: (OV) 6 Days PO LSG 11/02/22 Allergies No Known Allergies Allergy (Verified 11/08/22 13:46) HPI HPI Comments History of Present Illness Details 47-year-old female presents the office t scar in follow-up. She is 6 days status post sleeve gastrectomy performed on 11/02/[address] Monzon. Tolerating Celebrate 4 in 1, 3 shakes 1 scoop each and 40 oz fluid daily no complaints of pain pos bm PFSH Medical History (Updated 11/02/22 @ 12:20 by Roel Monzon MD) Nephrolithiasis GERD (gastroesophageal reflux disease) Anxiety Depression BENITO III (cervical intraepithelial neoplasia grade III) with severe dysplasia Carpal tunnel syndrome Acute arthritis Seasonal allergic rhinitis Surgical History (Updated 11/08/22 @ 13:46 by Cathy Saravia CMA) S/P laparoscopic sleeve gastrectomy Hx of colonoscopy Tubal ligation status Family History Mother HTN (hypertension) A-fib Arthritis Father Diabetes HTN (hypertension) Sister Lupus Social History Household Members: Spouse Housing: House Are you a primary before and after school daycare worker to a significant other at home: No Do you presently have visiting nurse or other home services: No Alcohol intake: current Alcohol intake frequency: does not drink Patient Tobacco Use Status: Never used Tobacco Substance Use Type: Marijuana service: No Current occupational status: employed 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 Original weight on 07/15/22 was 212.4 pounds and op weight was 187.4 pounds. Be sure to text Dr Monzon exactly 1 week after surgery your weight from your home scale so he can adjust your meal plan. Continue meal plan until f/u w wu in 2 weeks May shower, no submersion in bath for another week Continue abdominal binder with activity and exercise for the next 2 weeks. Exercise prior to surgery was walking, may resume No abdominal exercises for 6 weeks post operatively Will be emailed link to post op video for review Reminded of the pace of drinking, 2 mL per minute, 1 oz/15 min. Coding Level of Care Code Global (41039) Diagnoses Obesity E66.9
[2022-11-08 13:48] VITALS: BP 122/78; PULSE 88; TEMP 36.4; O2SAT 96; BMI 35.7
== END 2022-11-08 14:03 | disposition home or self-care (01) ==
PROVIDERS: PCP Internal Medicine; Visit Provider Physician Assistant Surgical
DX: E66.9 Obesity, unspecified (principal)
CPT/HCPCS: 99024

== ENCOUNTER → 2022-11-08 13:38 | Outpatient (BNVA) | payer OTHER, SELFPAY | PROVIDERS: PCP Internal Medicine; Visit Provider Physician Assistant Surgical ==

== ENCOUNTER 2022-11-30 13:57 | Outpatient (AMB) | payer OTHER, SELFPAY ==
--- NOTE | 2022-11-30 13:59 | A.OFFVIS_ITS ---
Intake VS Expanded 11/30/22 14:08 BP 138/74 Blood Pressure Location Rt brachial Blood Pressure Position Sitting Pulse 69 Pulse Source Pulse Oximeter Temp 97.2 F Temperature Source Temporal Artery Scan Pulse Oximetry 100 Oxygen Delivery Method Room Air Height 4 ft 11 in Weight 168 lb 6.4 oz BMI 34.0 Body Fat % 41.5 Body Fat Mass 69.8 Fat Free Mass 98.4 Visceral Fat Rating 10.0 Body Water % 41.5 Body Water Mass 69.8 Muscle Mass/Score 93.2 Basal Metabolic Rate/Score 1,374 Intake Visit Reasons: (ov) PO LSG 11/02/22 Application Architect Manager Required: Yes Application Architect Manager Name: office cmi Allergies No Known Allergies Allergy (Verified 11/30/22 14:04) Medication List - Last Reconciled 11/30/22 by TIFFANY Fox bisacodyl (Dulcolax (bisacodyl)) 10 mg [place] DAILY PRN loratadine-pseudoephedrine 5-120 mg ER (Loratadine-D) 1 tab PO Q12H pantoprazole 40 mg PO DAILY sennosides (senna) 17.2 mg (2 x 8.6 mg) PO BEDTIME PRN sucralfate 10 mL PO BID HPI HPI Comments History of Present Illness Details This?a?47?yo female who is s/p LSG without hiatal hernia repair on?11/04/22. Presents for 1 month post op visit. Weight today is 168.4 pounds, with a BMI of 34. There has been a 19 pound weight loss,(initial weight 212.4 pounds) since starting the program on 07/15/22 reflecting a 20.7% total body weight loss and a weight loss of 44 pounds since surgery (operative weight 187.4 pounds) reflecting a 10.1% TBWL since surgery. No complaints of nausea, emesis, abdominal pain or reflux. Had constipation but this has since resolved She currently is doing the celebrate 4 in 1 shakes but does not like them. She is willing to continue for another 2 weeks. Additionally, she was supposed to do an Atkins bar but has not purchased it. I did suggest purchasing the celebrate protein bars. Present meal plan includes: Celebrate 4 in 1 shakes 1 scoop 8-10, 1 scoops 11-1, 2 scoops 2-4, was supposed to do atkins bar but not yet Drinking 64 oz water ? Exercise routine includes: walking PFSH Medical History (Updated 11/11/22 @ 00:03 by Lacie Lewis) BMI 39.0-39.9,adult Morbid obesity Right shoulder injury Left lateral epicondylitis Right shoulder tendonitis Carpal tunnel syndrome on both sides Normal vulvar exam Hemorrhoids Diverticulosis Tubular adenoma Encounter for screening colonoscopy Postmenopausal bleeding Well woman exam Nephrolithiasis GERD (gastroesophageal reflux disease) Anxiety Depression BENITO III (cervical intraepithelial neoplasia grade III) with severe dysplasia Carpal tunnel syndrome Acute arthritis Seasonal allergic rhinitis Surgical History S/P laparoscopic sleeve gastrectomy Hx of colonoscopy Tubal ligation status Family History Mother HTN (hypertension) A-fib Arthritis Father Diabetes HTN (hypertension) Sister Lupus Social History Household Members: Spouse Housing: House Are you a primary child care associate to a significant other at home: No Do you presently have visiting nurse or other home services: No Alcohol intake: current Alcohol intake frequency: does not drink Patient Tobacco Use Status: Never used Tobacco Substance Use Type: Marijuana service: No Current occupational status: employed 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 Consider changing in 2 weeks. Obtain Atkins and/or celebrate protein bars to have from 17:00 to 20:00. Continue water intake. Track calories while walking. Return to clinic in 2 weeks. Coding Level of Care Code Global (98991) Diagnoses S/P laparoscopic sleeve gastrectomy Z98.84
[2022-11-30 14:08] VITALS: BP 138/74; PULSE 69; TEMP 36.2; O2SAT 100; BMI 34.0
== END 2022-11-30 14:31 | disposition home or self-care (01) ==
PROVIDERS: PCP Internal Medicine; Visit Provider Physician Assistant Surgical
DX: Z98.84 Bariatric surgery status (principal)
CPT/HCPCS: 99024

== ENCOUNTER → 2022-11-30 13:57 | Outpatient (BNVA) | payer OTHER, SELFPAY | PROVIDERS: PCP Internal Medicine; Visit Provider Physician Assistant Surgical ==

== ENCOUNTER 2022-12-14 14:41 | Outpatient (AMB) | payer OTHER, SELFPAY ==
--- NOTE | 2022-12-14 14:43 | A.OFFVIS_ITS ---
Intake VS Expanded 12/14/22 14:53 BP 116/78 Blood Pressure Location Rt brachial Blood Pressure Position Sitting Pulse 85 Pulse Source Pulse Oximeter Temp 97.0 F Temperature Source Temporal Artery Scan Pulse Oximetry 96 Oxygen Delivery Method Room Air Height 4 ft 11 in Weight 163 lb 9.6 oz BMI 33.0 Body Fat % 40.0 Body Fat Mass 65.4 Fat Free Mass 98.2 Visceral Fat Rating 1.0 Body Water % 42.7 Body Water Mass 69.8 Muscle Mass/Score 93.0 Basal Metabolic Rate/Score 1,364 Intake Visit Reasons: (ov) PO LSG 11/02/22 Allergies No Known Allergies Allergy (Verified 12/14/22 14:49) HPI HPI Comments History of Present Illness Details This?a?47?yo female who is s/p LSG without hiatal hernia repair on?11/04/22. Presents for 6 week post op visit. Weight today is 163.6 pounds, with a BMI of 33.1. There has been a 48.8 pound weight loss,(initial weight 212.4 pounds) since starting the program on 07/15/22 reflecting a 22.9% total body weight loss and a weight loss of 23.8 pounds since surgery (operative weight 187.4 pounds) reflecting a 12.7% TBWL since surgery. No complaints of nausea, emesis, abdominal pain or reflux. Had constipation but this has since resolved She currently reports that she is feeling better but still complains of some fatigue. She states she feels better since last visit but not 100 %. Present meal plan includes: Celebrate 4 in 1 shakes 1 scoop 8-10, 1 scoops 11-1, 2 scoops 2-4, shakes in unsweetened almond milk celebrate bar 5-8 Drinking 64 oz water ? Exercise routine includes: walking outside but none on the treadmill at home, planning on [employer] [facility] Medical History (Updated 11/11/22 @ 00:03 by Background Daemon) BMI 39.0-39.9,adult Morbid obesity Right shoulder injury Left lateral epicondylitis Right shoulder tendonitis Carpal tunnel syndrome on both sides Normal vulvar exam Hemorrhoids Diverticulosis Tubular adenoma Encounter for screening colonoscopy Postmenopausal bleeding Well woman exam Nephrolithiasis GERD (gastroesophageal reflux disease) Anxiety Depression BENITO III (cervical intraepithelial neoplasia grade III) with severe dysplasia Carpal tunnel syndrome Acute arthritis Seasonal allergic rhinitis Surgical History S/P laparoscopic sleeve gastrectomy Hx of colonoscopy Tubal ligation status Family History Mother HTN (hypertension) A-fib Arthritis Father Diabetes HTN (hypertension) Sister Lupus Social History Household Members: Spouse Housing: House Are you a primary primary care coordinator to a significant other at home: No Do you presently have visiting nurse or other home services: No Alcohol intake: current Alcohol intake frequency: does not drink Patient Tobacco Use Status: Never used Tobacco Substance Use Type: Marijuana service: No Current occupational status: employed 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 Continue current meal plan. Encouraged to resume exercise. Return to clinic in 2 weeks with discussion of possibly adding food at that time as she did ask about it at this visit but was encouraged to continue current meal plan as her exercise routine was lacking. She is in agreement with this plan. Coding Level of Care Code Global (18687) Diagnoses Obesity (BMI 30-39.9) E66.9
[2022-12-14 14:53] VITALS: BP 116/78; PULSE 85; TEMP 36.1; O2SAT 96; BMI 33.0
== END 2022-12-14 15:19 | disposition home or self-care (01) ==
PROVIDERS: PCP Internal Medicine; Visit Provider Physician Assistant Surgical
DX: E66.9 Obesity, unspecified (principal)
CPT/HCPCS: 99024

== ENCOUNTER → 2022-12-14 14:41 | Outpatient (BNVA) | payer OTHER, SELFPAY | PROVIDERS: PCP Internal Medicine; Visit Provider Physician Assistant Surgical ==

== ENCOUNTER 2022-12-27 15:18 | Outpatient (REF) | payer OTHER, SELFPAY ==
[2022-12-27 16:02] LABS: MANUAL DIFF FLAG NO
[2022-12-27 16:22] LABS: Basophils Percent Auto 0.4 % (0-2); Eosinophils Absolute Auto 0.1 X10*3/uL (0.0-0.4); Eosinophils Percent Auto 1.1 % (0-4); Hematocrit 38.5 % (37.0-47.0); Hemoglobin 12.8 g/dl (12.0-16.0); Imm Gran Abs Auto 0.03 X10*3/uL (0.00-0.03); Imm Gran Pct Auto 0.4 % (0.0-0.4); Lymphocytes Absolute Auto 2.6 X10*3/uL (1.2-4.9); Lymphocytes Percent Auto 30.7 % (20-40); Mean Corpuscular HGB Conc 33.2 g/dl (31.0-35.0); Mean Corpuscular Hemoglobin 29.3 pg (27.0-33.0); Mean Corpuscular Volume 88.1 fL (80.0-98.0); Mean Platelet Volume 10.9 fL (9.4-12.3); Monocytes Absolute Auto 0.9 X10*3/uL (0.1-1.2); Neutrophils Absolute Auto 4.9 x10*3/uL (2.0-8.3); Neutrophils Percent Auto 57.4 % (45-73); Platelet Count 242 X10*3/uL (160-400); Red Blood Count 4.37 X10*6/uL (4.20-5.50); Red Cell Distribution Width 15.8 % (11.0-16.0); White Blood Count 8.6 X10*3/uL (4.8-10.8)
[2022-12-27 16:44] LABS: Rheumatoid Factor 37.1 IU/mL (<15.0)
[2022-12-27 16:45] LABS: C Reactive Protein 1.14 mg/dL (< or = 0.50)
[2022-12-27 17:26] LABS: Erythrocyte Sedimentation Rate 28 MM/HR (0-20)
== END 2022-12-27 15:19 | disposition home or self-care (01) ==
LOC: HO.HHCL 15:18
PROVIDERS: Visit Provider Internal Medicine
DX: M05.79 Rheumatoid arthritis with rheumatoid factor of multiple sites without organ or systems involvement (principal)
CPT/HCPCS: 36415; 85025; 85652; 86140; 86431

== ENCOUNTER 2022-12-29 13:55 | Outpatient (REF) | payer OTHER, SELFPAY ==
[2023-01-07 03:28] LABS: HPV mRNA E6/E7 rflx Not Detected (Not Detected)
== END 2022-12-29 13:56 | disposition home or self-care (01) ==
LOC: HO.LNP 13:55
PROVIDERS: PCP Internal Medicine; Visit Provider Obstetrics & Gynecology
DX: Z01.419 Encounter for gynecological examination (general) (routine) without abnormal findings (principal); Z11.51 Encounter for screening for human papillomavirus (HPV); D06.9 Carcinoma in situ of cervix, unspecified
CPT/HCPCS: 87624; 88142

== ENCOUNTER 2022-12-29 13:55 | Outpatient (AMB) | payer OTHER, SELFPAY ==
--- NOTE | 2022-12-29 14:17 | A.OFFVIS_ITS ---
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 No complaints. Last Pap/HPV was in 11/28 was negative, preceded by a negative co testing in 11/27, ascus/HPV positive colpo/biopsy BENITO 1 in 2019 and ascus/HPV positive negative colpo biopsy ECC in 2018. The patient had BENITO 2-3 with positive margin 2018 Last Mammogram was BI-RADS 1 in 06/29 Last Colonoscopy was in 07/29, the recommendation was to repeat in 10 years PFSH Medical History BMI 39.0-39.9,adult Morbid obesity Right shoulder injury Left lateral epicondylitis Right shoulder tendonitis Carpal tunnel syndrome on both sides Normal vulvar exam Hemorrhoids Diverticulosis Tubular adenoma Encounter for screening colonoscopy Postmenopausal bleeding Well woman exam Nephrolithiasis GERD (gastroesophageal reflux disease) Anxiety Depression BENITO III (cervical intraepithelial neoplasia grade III) with severe dysplasia Carpal tunnel syndrome Acute arthritis Seasonal allergic rhinitis Surgical History S/P laparoscopic sleeve gastrectomy Hx of colonoscopy Tubal ligation status Family History Mother HTN (hypertension) A-fib Arthritis Father Diabetes HTN (hypertension) Sister Lupus Household Members: Spouse Housing: House Are you a primary acute care physical therapist to a significant other at home: No Do you presently have visiting nurse or other home services: No Alcohol intake: current Alcohol intake frequency: does not drink Patient Tobacco Use Status: Never used Tobacco Substance Use Type: Marijuana service: No Current occupational status: employed 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 Sexual orientation: Straight/Heterosexual Gender identity: Female Female Reproductive History Menstrual Age of Menarche: 10 Menopause type: natural Total pregnancies: 3 Full term: 3 Number of Living Children: 3 Date of last pap smear: 11/13/21 Date of Mammogram: 07/07/22 Review of Systems Const All systems reviewed & are unremarkable except as noted in HPI and below Card Reports as per HPI Resp Reports as per HPI GI Reports as per HPI and Reports no additional complaints Reports as per HPI Physical Exam Const General: cooperative, healthy appearing and comfortable Chest Chest palpation & inspection: normal inspection of the chest and normal palpation of entire chest wall Breast/axilla inspection: normal inspection of the breasts and normal inspection of the axillae Breast/axilla palpation: normal palpation of the breasts, normal palpation of the axillae and no axillary lymphadenopathy Resp Effort & Inspection: normal respiratory effort Auscultation: clear to auscultation bilaterally Percussion: percussion normal Cardio Palpation: normal PMI Rate: regular rate Rhythm: regular rhythm Heart sounds: no murmurs and no rubs Peripheral pulses: Peripheral pulses 2+ throughout GI Inspection: Yes normal to inspection Palpation (GI): Soft to palpation, nontender, no guarding, not rigid and No hepatosplenomegaly present Percussion: Yes normal to percussion Auscultation: normal bowel sounds Rectal Exam - Female: deferred General: Yes bladder normal to palpation External Female Exam: No lesion Speculum Exam - Vagina: normal appearance of the vagina, normal palpation, normal vaginal discharge and not erythematous Speculum Exam - Cervix: normal appearance of the cervix and normal palpation Bimanual exam- vagina & uterus: normal bimanual exam, normal palpation, uterine size normal, bladder normal to palpation, consistency normal and normal palpation Bimanual Exam- Adnexa, other: normal adnexae, no masses and no tenderness Assessment & Plan Assessment & Plan (1) Well woman exam: Comment: BENITO 1 in 09/26 with history of BENITO 3 status post LEEP BENITO 3 with positive margin in 02/25 Negative co testing in 2020 and 2021 Code(s): Z01.419 - Encounter for gynecological examination (general) (routine) without abnormal findings Plan: Co testing done. Counseled the patient about the recommended dietary allowance of 1200 mg of Virgilio cium & 600 IU of vitamin D. Instructions given the patient to schedule her next screening Mammogram in 06/30. The patient was instructed to perform monthly self-breast exams and schedule annual exam in a year. All questions answered and the patient verbalized understanding. Coding Level of Care Code Est Pt Prev Care 40-64y(94608) Diagnoses Well woman exam Z01.419
[2022-12-29 14:18] VITALS: BP 118/70; BMI 32.7
== END 2022-12-29 14:41 | disposition home or self-care (01) ==
LOC: HO.HWS 13:55
PROVIDERS: PCP Internal Medicine; Visit Provider Obstetrics & Gynecology
DX: Z01.419 Encounter for gynecological examination (general) (routine) without abnormal findings (principal)
CPT/HCPCS: 99396

== ENCOUNTER 2023-01-04 14:26 | Outpatient (AMB) | payer OTHER, SELFPAY ==
--- NOTE | 2023-01-04 14:27 | A.OFFVIS_ITS ---
Intake VS Expanded 01/04/23 14:36 BP 160/78 H Blood Pressure Location Rt brachial Blood Pressure Position Sitting Pulse 75 Pulse Source Pulse Oximeter Temp 96.7 F L Temperature Source Temporal Artery Scan Pulse Oximetry 97 Oxygen Delivery Method Room Air Height 4 ft 11 in Weight 159 lb 9.6 oz BMI 32.2 Body Fat % 38.0 Body Fat Mass 60.6 Fat Free Mass 98.8 Visceral Fat Rating 9.0 Body Water % 44.1 Body Water Mass 70.4 Muscle Mass/Score 93.6 Basal Metabolic Rate/Score 1,363 Intake Visit Reasons: (ov) PO LSG 11/02/22 Allergies No Known Allergies Allergy (Verified 01/04/23 14:32) HPI HPI Comments History of Present Illness Details This?a?47?yo femal e who is s/p LSG w ithout hiatal odessa ia repair on?. Presents for 2 month post op vis it. Weight today i s 159.6 pounds, wi th a BMI of 32.2. There has been a 52.8 pound weight loss,(initial weig ht 212.4 pounds) s alicia starting the program on 07/15/22 reflecting a 24.8% total body weight loss and a weight loss of 27.8 poun ds since surgery ( operative weight 1 87.4 pounds) refle cting a 14.8% TBWL since surgery. N o complaints of na usea, emesis, abdo jenna pain or refl ux. Had constipati on but this has si nce resolved She currently reports that she is feelin g better but still complains of some fatigue. She has been dealing with her mom who has be en sick with cardi ac issues. Pr esent meal plan in cludes: Celebrate 4 in 1 shakes 1 s coop 8-10, 1 scoop s 11-1, 2 scoops 2-4, shakes in uns weetened almond mi lk celebrate bar 5-8 Drinking 48-64 oz water ? Exer cise routine inclu tierra: home videos 3 0 minutes daily PFSH Medical History BMI 39.0-39.9,adult Morbid obesity Right shoulder injury Left lateral epicondylitis Right shoulder tendonitis Carpal tunnel syndrome on both sides Normal vulvar exam Hemorrhoids Diverticulosis Tubular adenoma Encounter for screening colonoscopy Postmenopausal bleeding Well woman exam Nephrolithiasis GERD (gastroesophageal reflux disease) Anxiety Depression BENITO III (cervical intraepithelial neoplasia grade III) with severe dysplasia Carpal tunnel syndrome Acute arthritis Seasonal allergic rhinitis Surgical History S/P laparoscopic sleeve gastrectomy Hx of colonoscopy Tubal ligation status Family History Mother HTN (hypertension) A-fib Arthritis Father Diabetes HTN (hypertension) Sister Lupus Social History (Updated 12/29/22 @ 14:24 by Stella Pineda [facility]) Household Members: Spouse Housing: House Are you a primary respiratory care instructor to a significant other at home: No Do you presently have visiting nurse or other home services: No Alcohol intake: current Alcohol intake frequency: does not drink Patient Tobacco Use Status: Never used Tobacco Substance Use Type: Marijuana service: No Current occupational status: employed 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 Sexual orientation: Straight/Heterosexual Gender identity: Female Female Reproductive History Menstrual Age of Menarche: 10 Physical Exam Const General: healthy appearing and no acute distress Resp Effort & Inspection: normal respiratory effort Auscultation: clear to auscultation bilaterally Cardio Rate: regular rate Rhythm: regular rhythm GI Auscultation: normal bowel sounds Extrem General: Yes normal to inspection Assessment & Plan Assessment & Plan (1) Obesity: Code(s): E66.9 - Obesity, unspecified Plan: Patient is doing okay, she is willing to continue the current meal plan, we did discuss exercise as a lacking component. She states that she has been doing home videos for 30 minutes per day, she reports she has an elliptical at home as well, I recommended that she do the home videos for 30 minutes and then the suyapa ptical for 30 minutes and she states she will do so. We will have her return to the office in approximately 3 weeks as she would like to have a meal plan in place prior to the holiday. re-check BP 138/80 Coding Level of Care Code Global (43746) Diagnoses Obesity E66.9
[2023-01-04 14:36] VITALS: BP 160/78; PULSE 75; TEMP 35.9; O2SAT 97; BMI 32.2
== END 2023-01-04 14:50 | disposition home or self-care (01) ==
PROVIDERS: PCP Internal Medicine; Visit Provider Physician Assistant Surgical
DX: E66.9 Obesity, unspecified (principal)
CPT/HCPCS: 99024

== ENCOUNTER → 2023-01-04 14:26 | Outpatient (BNVA) | payer OTHER, SELFPAY | PROVIDERS: PCP Internal Medicine; Visit Provider Physician Assistant Surgical ==

== ENCOUNTER 2023-01-25 15:08 | Outpatient (AMB) | payer OTHER, SELFPAY ==
--- NOTE | 2023-01-25 15:11 | MHC.OFFVISWM ---
Intake VS Expanded 01/25/23 15:20 BP 152/72 H Blood Pressure Location Rt brachial Blood Pressure Position Sitting Pulse 77 Pulse Source Pulse Oximeter Temp 96.3 F L Temperature Source Tympanic Pulse Oximetry 99 Oxygen Delivery Method Room Air Height 4 ft 11 in Weight 156 lb BMI 31.5 Body Fat % 36.4 Body Fat Mass 56.6 Fat Free Mass 99.2 Visceral Fat Rating 8.0 Body Water % 45.3 Body Water Mass 70.6 Muscle Mass/Score 94.2 Basal Metabolic Rate/Score 1,362 Intake Visit Reasons: (ov) PO LSG 11/02/22 Content Designer Required: Yes Content Designer Name: office cmi Allergies No Known Allergies Allergy (Verified 01/04/23 14:32) Medication List - Last Reconciled 01/25/23 by TIFFANY Fox bisacodyl (Dulcolax (bisacodyl)) 10 mg [place] DAILY PRN loratadine-pseudoephedrine 5-120 mg ER (Loratadine-D) 1 tab PO Q12H pantoprazole 40 mg PO DAILY sennosides (senna) 17.2 mg (2 x 8.6 mg) PO BEDTIME PRN sucralfate 10 mL PO BID HPI HPI Comments History of Present Illness Details This?a?47?yo female who is s/p LSG without hiatal hernia repair on?11/04/22. Presents for 3 month post op visit. Weight today is 156 pounds, with a BMI of 31.5. There has been a 56.4 pound weight loss,(initial weight 212.4 pounds) since starting the program on 07/15/22 reflecting a 26.5% total body weight loss and a weight loss of 31.4 pounds since surgery (operative weight 187.4 pounds) reflecting a 16.7% TBWL since surgery. No complaints of nausea, emesis, abdominal pain or reflux. wants to start food, and stop bar Present meal plan includes: Celebrate foreign 1 shakes, 1 scoop, 1 scoop, 2 scoops 9-11, 1-3, 8-10 Celebrate protein bar, 2-5 32-48 oz water ? Exercise routine includes: video at home 5 x per week, 30 min treadmill 3 x per week, 300 calories walking outside 2 x per week or at the mall. [facility] Medical History BMI 39.0-39.9,adult Morbid obesity Right shoulder injury Left lateral epicondylitis Right shoulder tendonitis Carpal tunnel syndrome on both sides Normal vulvar exam Hemorrhoids Diverticulosis Tubular adenoma Encounter for screening colonoscopy Postmenopausal bleeding Well woman exam Nephrolithiasis GERD (gastroesophageal reflux disease) Anxiety Depression BENITO III (cervical intraepithelial neoplasia grade III) with severe dysplasia Carpal tunnel syndrome Acute arthritis Seasonal allergic rhinitis Surgical History S/P laparoscopic sleeve gastrectomy Hx of colonoscopy Tubal ligation status Family History Mother HTN (hypertension) A-fib Arthritis Father Diabetes HTN (hypertension) Sister Lupus Social History Household Members: Spouse Housing: House Are you a primary customer care voice consultant to a significant other at home: No Do you presently have visiting nurse or other home services: No Alcohol intake: current Alcohol intake frequency: does not drink Patient Tobacco Use Status: Never used Tobacco Substance Use Type: Marijuana service: No Current occupational status: employed 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 Meal, 4 forks of protein and 4 forks of vegetables Encouraged to increase exercise on the treadmill by at least 1 day and increase calories burn to 400 with an ultimate goal of 2000 calories per week. Return to clinic 1 month Coding Level of Care Code Global (77260) Diagnoses Obesity E66.9
[2023-01-25 15:20] VITALS: BP 152/72; PULSE 77; TEMP 35.7; O2SAT 99; BMI 31.5
== END 2023-01-25 15:40 | disposition home or self-care (01) ==
PROVIDERS: PCP Internal Medicine; Visit Provider Physician Assistant Surgical
DX: E66.9 Obesity, unspecified (principal)
CPT/HCPCS: 99024

== ENCOUNTER → 2023-01-25 15:08 | Outpatient (BNVA) | payer OTHER, SELFPAY | PROVIDERS: PCP Internal Medicine; Visit Provider Physician Assistant Surgical | DX: E66.9 Obesity, unspecified (principal); Z68.31 Body mass index [BMI] 31.0-31.9, adult | CPT/HCPCS: 99212 ==

== ENCOUNTER 2023-03-25 12:58 | Outpatient (AMB) | payer OTHER, SELFPAY ==
--- NOTE | 2023-03-25 13:01 | A.OFFVIS_ITS ---
Intake VS Expanded 03/25/23 13:08 BP 129/75 Blood Pressure Location Rt brachial Blood Pressure Position Sitting Pulse 71 Pulse Source Pulse Oximeter Temp 97.1 F Temperature Source Temporal Artery Scan Pulse Oximetry 98 Oxygen Delivery Method Room Air Height 4 ft 11 in Weight 141 lb 3.2 oz BMI 28.5 Body Fat % 32.8 Body Fat Mass 46.2 Fat Free Mass 94.8 Visceral Fat Rating 7.0 Body Water % 47.8 Body Water Mass 67.4 Muscle Mass/Score 90.0 Basal Metabolic Rate/Score 1,293 Intake Visit Reasons: (ov) PO LSG 11/02/22 Freight Service Inspector Required: Yes Freight Service Inspector Name: office cmi Allergies No Known Allergies Allergy (Verified 03/25/23 13:04) Medication List - Last Reconciled 03/25/23 by TIFFANY Fox bisacodyl (Dulcolax (bisacodyl)) 10 mg [place] DAILY PRN loratadine-pseudoephedrine 5-120 mg ER (Loratadine-D) 1 tab PO Q12H sennosides (senna) 17.2 mg (2 x 8.6 mg) PO BEDTIME PRN HPI HPI Comments History of Present Illness Details This?a?47?yo female who is s/p LSG without hiatal hernia repair on?11/04/22. Presents for 5 month post op visit. Weight today is 141.2 pounds, with a BMI of 28.5. There has been a 71.2 pound weight loss,(initial weight 212.4 pounds) since starting the program on 07/15/22 reflecting a 33.5% total body weight loss and a weight loss of 46.2 pounds since surgery (operative weight 187.4 pounds) reflecting a 24.6% TBWL since surgery. No complaints of nausea, emesis, abdominal pain or reflux. Reports that things are going well. Present meal plan includes: Celebrate 4 in 1 shakes, 2 scoops, 1 scoop, 1 scoop 9-11, 1-3, 8-10 meal at 5 with 4 forks of protein and 4 forks of veg 32-48 oz water? Exercise routine includes: treadmill 7 x per week, 1 hour, 300 calories walking outside daily. [facility] Medical History BMI 39.0-39.9,adult Morbid obesity Right shoulder injury Left lateral epicondylitis Right shoulder tendonitis Carpal tunnel syndrome on both sides Normal vulvar exam Hemorrhoids Diverticulosis Tubular adenoma Encounter for screening colonoscopy Postmenopausal bleeding Well woman exam Nephrolithiasis GERD (gastroesophageal reflux disease) Anxiety Depression BENITO III (cervical intraepithelial neoplasia grade III) with severe dysplasia Carpal tunnel syndrome Acute arthritis Seasonal allergic rhinitis Surgical History S/P laparoscopic sleeve gastrectomy Hx of colonoscopy Tubal ligation status Family History Mother HTN (hypertension) A-fib Arthritis Father Diabetes HTN (hypertension) Sister Lupus Social History Household Members: Spouse Housing: House Are you a primary patient care technician to a significant other at home: No Do you presently have visiting nurse or other home services: No Alcohol intake: current Alcohol intake frequency: does not drink Patient Tobacco Use Status: Never used Tobacco Substance Use Type: Marijuana service: No Current occupational status: employed 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 She will continue her current meal plan per her request. She may certainly text at any time should she wish to change it. Encouraged to continue exercise as she is doing. Will have her return to the office at the end of April for her six-month postop visit. Coding Level of Care Code Est Pt Level 3 (01729) Diagnoses Overweight (BMI 25.0-29.9) E66.3
[2023-03-25 13:08] VITALS: BP 129/75; PULSE 71; TEMP 36.2; O2SAT 98; BMI 28.5
== END 2023-03-25 13:37 | disposition home or self-care (01) ==
PROVIDERS: PCP Internal Medicine; Visit Provider Physician Assistant Surgical
DX: E66.3 Overweight (principal)
CPT/HCPCS: 99213

== ENCOUNTER → 2023-03-25 12:58 | Outpatient (BNVA) | payer OTHER, SELFPAY | PROVIDERS: PCP Internal Medicine; Visit Provider Physician Assistant Surgical | DX: E66.3 Overweight (principal); Z68.21 Body mass index [BMI] 21.0-21.9, adult | CPT/HCPCS: 99212 ==

== ENCOUNTER 2023-05-02 13:48 | Outpatient (AMB) | payer OTHER, SELFPAY ==
--- NOTE | 2023-05-02 13:50 | A.OFFVIS_ITS ---
Intake VS Expanded 05/02/23 14:01 BP 136/72 Blood Pressure Location Rt brachial Blood Pressure Position Sitting Pulse 66 Pulse Source Pulse Oximeter Temp 96.7 F L Temperature Source Temporal Artery Scan Pulse Oximetry 98 Oxygen Delivery Method Room Air Height 4 ft 11 in Weight 137 lb 6.4 oz BMI 27.7 Body Fat % 30.3 Body Fat Mass 41.6 Fat Free Mass 95.6 Visceral Fat Rating 6.0 Body Water % 49.4 Body Water Mass 68.0 Muscle Mass/Score 90.8 Basal Metabolic Rate/Score 1,295 Intake Visit Reasons: (ov) PO LSG 11/02/22 Composite Bond Technician Required: Yes Composite Bond Technician Name: office cmi Allergies No Known Allergies Allergy (Verified 05/02/23 13:56) Medication List - Last Reconciled 05/02/23 by TIFFANY Fox sennosides (senna) 17.2 mg (2 x 8.6 mg) PO BEDTIME PRN HPI HPI Comments History of Present Illness Details This?a?47?yo female who is s/p LSG without hiatal hernia repair on?11/04/22. Presents for 6 month post op visit. Weight today is 137.4 pounds, with a BMI of 27.8. There has been a 75 pound weight loss,(initial weight 212.4 pounds) since starting the program on 07/15/22 reflecting a 35.3% total body weight loss and a weight loss of 50 pounds since surgery (operative weight 187.4 pounds) reflecting a 26.6% TBWL since surgery. No complaints of nausea, emesis, abdominal pain or reflux. Reports that things are going well. Present meal plan includes: Celebrate 4 in 1 shakes, 2 scoops, 1 scoop, 1 scoop 9-11am, 1-3pm, 8-10 meal at 5 with 4 forks of protein and 4 forks of veg 32-48 oz water? Exercise routine includes: treadmill 3-4 x per week, 1-2 hour Walks outside the other days. walking outside daily. [facility] Medical History BMI 39.0-39.9,adult Morbid obesity Right shoulder injury Left lateral epicondylitis Right shoulder tendonitis Carpal tunnel syndrome on both sides Normal vulvar exam Hemorrhoids Diverticulosis Tubular adenoma Encounter for screening colonoscopy Postmenopausal bleeding Well woman exam Nephrolithiasis GERD (gastroesophageal reflux disease) Anxiety Depression BENITO III (cervical intraepithelial neoplasia grade III) with severe dysplasia Carpal tunnel syndrome Acute arthritis Seasonal allergic rhinitis Surgical History S/P laparoscopic sleeve gastrectomy Hx of colonoscopy Tubal ligation status Family History Mother HTN (hypertension) A-fib Arthritis Father Diabetes HTN (hypertension) Sister Lupus Social History Household Members: Spouse Housing: House Are you a primary team primary care physician to a significant other at home: No Do you presently have visiting nurse or other home services: No Alcohol intake: current Alcohol intake frequency: does not drink Patient Tobacco Use Status: Never used Tobacco Substance Use Type: Marijuana service: No Current occupational status: employed 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 Sexual orientation: Straight/Heterosexual Gender identity: Female Female Reproductive History Menstrual Age of Menarche: 10 Physical Exam Const General: cooperative and no acute distress Orientation/consciousness: patient oriented x3 Resp Effort & Inspection: normal respiratory effort Auscultation: clear to auscultation bilaterally Cardio Rate: regular rate Rhythm: regular rhythm GI Inspection: Yes normal to inspection and Yes incision (well healed) Palpation (GI): Soft to palpation and no masses Neuro General: patient oriented x3 Assessment & Plan Assessment & Plan (1) S/P laparoscopic sleeve gastrectomy: Code(s): Z98.84 - Bariatric surgery status Plan: Overall, the patient is doing well. She has been encouraged to add w eightlifting to her regimen. She additionally is satisfied with her current meal plan and would like to continue. We will check six-month labs and have her return to the office in 1 month. She was encouraged to text between appointments with any questions or concerns. Orders: Orders Complete Blood Count Auto Diff Today E66.3 - Overweight, Z98.84 - Bariatric surgery status Lipid Panel Today E66.3 - Overweight, Z98.84 - Bariatric surgery status Vitamin B12 and Folate Today E66.3 - Overweight, Z98.84 - Bariatric surgery status Vitamin B1 Today E66.3 - Overweight, Z98.84 - Bariatric surgery status Ferritin Today E66.3 - Overweight, Z98.84 - Bariatric surgery status Vitamin D 25-OH Total Today E66.3 - Overweight, Z98.84 - Bariatric surgery status Basic Metabolic Panel Today E66.3 - Overweight, Z98.84 - Bariatric surgery status Insulin Today E66.3 - Overweight, Z98.84 - Bariatric surgery status Hemoglobin A1c Today E66.3 - Overweight, Z98.84 - Bariatric surgery status IRON PROFILE Today E66.3 - Overweight, Z98.84 - Bariatric surgery status Zinc Today E66.3 - Overweight, Z98.84 - Bariatric surgery status C Reactive Protein Today E66.3 - Overweight, Z98.84 - Bariatric surgery status Vitamin A Today E66.3 - Overweight, Z98.84 - Bariatric surgery status TSH reflex Free T4 Today E66.3 - Overweight, Z98.84 - Bariatric surgery status Coding Level of Care Code Est Pt Level 3 (33224) Diagnoses S/P laparoscopic sleeve gastrectomy Z98.84
[2023-05-02 14:01] VITALS: BP 136/72; PULSE 66; TEMP 35.9; O2SAT 98; BMI 27.7
== END 2023-05-02 14:26 | disposition home or self-care (01) ==
PROVIDERS: PCP Internal Medicine; Visit Provider Physician Assistant Surgical
DX: E66.3 Overweight (principal); Z68.27 Body mass index [BMI] 27.0-27.9, adult; Z90.3 Acquired absence of stomach [part of]; Z98.84 Bariatric surgery status
CPT/HCPCS: 99213

== ENCOUNTER → 2023-05-02 13:48 | Outpatient (BNVA) | payer OTHER, SELFPAY | PROVIDERS: PCP Internal Medicine; Visit Provider Physician Assistant Surgical | DX: E66.3 Overweight (principal); Z71.3 Dietary counseling and surveillance; Z98.84 Bariatric surgery status; Z68.27 Body mass index [BMI] 27.0-27.9, adult | CPT/HCPCS: 99212 ==

== ENCOUNTER 2023-07-13 11:42 | Outpatient (REF) | payer OTHER, SELFPAY | END 2023-07-13 11:43 | disposition home or self-care (01) | LOC: HO.MAMMO 11:42 | PROVIDERS: PCP Internal Medicine; Visit Provider Internal Medicine | DX: Z12.31 Encounter for screening mammogram for malignant neoplasm of breast (principal) | CPT/HCPCS: 77063; 77067 ==

== ENCOUNTER → 2023-07-13 11:45 | Outpatient (BNV) | payer OTHER, SELFPAY | PROVIDERS: PCP Internal Medicine; Visit Provider Radiology Diagnostic Radiology | DX: Z12.31 Encounter for screening mammogram for malignant neoplasm of breast (principal) | CPT/HCPCS: 77063; 77067 ==

== ENCOUNTER 2023-07-20 13:10 | Outpatient (AMB) | payer OTHER, SELFPAY ==
--- NOTE | 2023-07-20 13:13 | A.OFFVIS_ITS ---
VS Expanded 07/20/23 13:29 BP 131/80 Blood Pressure Location Rt brachial Blood Pressure Position Sitting Pulse 66 Pulse Source Pulse Oximeter Temp 97.9 F Temperature Source Temporal Artery Scan Pulse Oximetry 97 Oxygen Delivery Method Room Air Height 4 ft 11 in Weight 134 lb 6.4 oz BMI 27.1 Body Fat % 27.1 Body Fat Mass 36.4 Fat Free Mass 97.8 Visceral Fat Rating 5.0 Body Water % 51.7 Body Water Mass 69.4 Muscle Mass/Score 92.8 Basal Metabolic Rate/Score 1,312 Intake Visit Reasons: (ov) PO LSG 11/02/22 Dump Motor Operator Required: No Allergies No Known Allergies Allergy (Verified 07/20/23 13:17) Medication List - Last Reconciled 07/20/23 by TIFFANY Fox sennosides (senna) 17.2 mg (2 x 8.6 mg) PO BEDTIME PRN HPI Comments Details: This?a?47?yo female who is s/p LSG without hiatal hernia repair on?11/04/22. Presents for 9 month post op visit. Weight today is 134.4 pounds, with a BMI of 27.1. There has been a 78 pound weight loss,(initial weight 212.4 pounds) since starting the program on 07/15/22 reflecting a 36.7% total body weight loss and a weight loss of 53 pounds since surgery (operative weight 187.4 pounds) reflecting a 28.2% TBWL since surgery. No complaints of nausea, emesis, abdominal pain or reflux. Reports that things are going well. She did not get the labs ordered in April as I requested. She states she wants to change her meal plan, she wants to do only one shake in the morning. She also wants to change to Orgain shake and ZP bar Present meal plan includes: Celebrate 4 in 1 shakes, 2 scoops, 1 scoop, 1 scoop 9-11am, 1-3pm, 8-10 meal at 5 with 4 forks of protein and 4 forks of veg 32-48 oz water? Exercise routine includes: walking outside daily. 1 hour 3 x per week, not tracking calories. [facility] Medical History BMI 39.0-39.9,adult Morbid obesity Right shoulder injury Left lateral epicondylitis Right shoulder tendonitis Carpal tunnel syndrome on both sides Normal vulvar exam Hemorrhoids Diverticulosis Tubular adenoma Encounter for screening colonoscopy Postmenopausal bleeding Well woman exam Nephrolithiasis GERD (gastroesophageal reflux disease) Anxiety Depression BENITO III (cervical intraepithelial neoplasia grade III) with severe dysplasia Carpal tunnel syndrome Acute arthritis Seasonal allergic rhinitis Surgical History S/P laparoscopic sleeve gastrectomy Hx of colonoscopy Tubal ligation status Family History Mother HTN (hypertension) A-fib Arthritis Father Diabetes HTN (hypertension) Sister Lupus Social History Household Members: Spouse Housing: House Are you a primary physician assistant primary care to a significant other at home: No Do you presently have visiting nurse or other home services: No Alcohol intake: current Alcohol intake frequency: does not drink Patient Tobacco Use Status: Never used Tobacco Substance Use Type: Marijuana service: No Current occupational status: employed 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 She does not wish to lose much more weight. She does wish to change back to her previous shake which was Orgain. We will change meal plan: Guillermina samano, 2 scoops, 9-11 ZP bar 1-3 Meal 5 pm 6 forks protien and 6 forks vegetables Encouraged to track calories when she is out walking using the [employer] maddie. Encouraged to get her labs done which were ordered in April. Return to clinic 3 months.
[2023-07-20 13:29] VITALS: BP 131/80; PULSE 66; TEMP 36.6; O2SAT 97; BMI 27.1
== END 2023-07-20 13:42 | disposition home or self-care (01) ==
PROVIDERS: PCP Internal Medicine; Visit Provider Physician Assistant Surgical
DX: E66.3 Overweight (principal)
CPT/HCPCS: 99213

== ENCOUNTER → 2023-07-20 13:10 | Outpatient (BNVA) | payer OTHER, SELFPAY | PROVIDERS: PCP Internal Medicine; Visit Provider Physician Assistant Surgical | DX: E66.3 Overweight (principal); Z68.27 Body mass index [BMI] 27.0-27.9, adult; Z90.3 Acquired absence of stomach [part of] | CPT/HCPCS: 99212 ==

== ENCOUNTER 2023-07-22 10:19 | Outpatient (REF) | payer OTHER, SELFPAY ==
[2023-07-22 10:48] LABS: MANUAL DIFF FLAG NO
[2023-07-22 11:53] LABS: Basophils Percent Auto 0.6 % (0-2); Eosinophils Absolute Auto 0.1 X10*3/uL (0.0-0.4); Eosinophils Percent Auto 1.1 % (0-4); Hematocrit 41.5 % (37.0-47.0); Imm Gran Abs Auto 0.03 X10*3/uL (0.00-0.03); Imm Gran Pct Auto 0.4 % (0.0-0.4); Lymphocytes Absolute Auto 2.6 X10*3/uL (1.2-4.9); Lymphocytes Percent Auto 36.4 % (20-40); Mean Corpuscular HGB Conc 33.7 g/dl (31.0-35.0); Mean Corpuscular Hemoglobin 29.9 pg (27.0-33.0); Mean Corpuscular Volume 88.7 fL (80.0-98.0); Mean Platelet Volume 10.5 fL (9.4-12.3); Monocytes Absolute Auto 0.5 X10*3/uL (0.1-1.2); Monocytes Percent Auto 6.9 % (2-11); Neutrophils Percent Auto 54.6 % (45-73); Platelet Count 266 X10*3/uL (160-400); Red Blood Count 4.68 X10*6/uL (4.20-5.50); Red Cell Distribution Width 12.5 % (11.0-16.0); White Blood Count 7.3 X10*3/uL (4.8-10.8)
[2023-07-22 12:03] LABS: Estimated Average Glucose 94 mg/dL; Hemoglobin A1c % 4.9 % (<6.0)
[2023-07-22 12:47] LABS: Anion Gap 11 (12-20); Blood Urea Nitrogen 17 mg/dL (9-16); C Reactive Protein 0.36 mg/dL (< or = 0.50); Calcium 9.5 mg/dL (8.4-10.2); Carbon Dioxide 29 mmol/L (22-29); Chloride 106 mmol/L (96-108); Cholesterol 208 mg/dL (<200); Estimated Glomerular Filt Rate > 60; Glucose Random 80 mg/dL (60-115); HDL Cholesterol 69 mg/dL (>40); Iron 122 mcg/dL (30-160); LDL Cholesterol Calculated 122 mg/dL (<100); Percent Iron Saturation 47 % (15-50); Potassium 3.8 mmol/L (3.3-5.1); Sodium 142 mmol/L (135-145); Total Iron Binding Capacity 262 mcg/dL (228-428); Triglycerides 88 mg/dL (<150); Unsaturated Iron Binding 140 ug/dL
[2023-07-22 12:52] LABS: Folate 7.7 ng/mL (> or = 4.0); Vitamin B12 561 pg/mL (200-900)
[2023-07-22 12:54] LABS: Ferritin 114 ng/mL (10-250); TSH reflex Free T4 1.11 uIU/mL (0.32-4.0); Vitamin D 25-OH Total 25.7 ng/mL (>30)
[2023-07-22 13:27] LABS: Insulin 6 uU/mL (2-29)
[2023-07-26 15:54] LABS: Zinc 74 mcg/dL (60-130)
[2023-07-28 16:34] LABS: Vitamin A 45 mcg/dL (38-98)
[2023-07-29 18:39] LABS: Vitamin B1 8 nmol/L (8-30)
== END 2023-07-22 10:20 | disposition home or self-care (01) ==
LOC: HO.LAB 10:19
PROVIDERS: PCP Internal Medicine; Visit Provider Physician Assistant Surgical
DX: E66.3 Overweight (principal); Z98.84 Bariatric surgery status
CPT/HCPCS: 36415; 80048; 80061; 82306; 82607; 82728; 82746; 83036; 83525; 83540; 84425; 84443; 84590; 84630; 85025; 86140

== ENCOUNTER 2023-10-26 13:37 | Outpatient (AMB) | payer OTHER, SELFPAY ==
--- NOTE | 2023-10-26 13:41 | A.OFFVIS_ITS ---
VS Expanded 10/26/23 13:46 BP 155/85 H Blood Pressure Location Rt brachial Blood Pressure Position Sitting Pulse 72 Pulse Source Pulse Oximeter Temp 97.0 F Temperature Source Temporal Artery Scan Pulse Oximetry 98 Oxygen Delivery Method Room Air Height 4 ft 11 in Weight 134 lb 6.4 oz BMI 27.1 Body Fat % 29.9 Body Fat Mass 40.2 Fat Free Mass 94.2 Visceral Fat Rating 6.0 Body Water % 49.9 Body Water Mass 67.0 Muscle Mass/Score 89.2 Basal Metabolic Rate/Score 1,273 Intake Visit Reasons: (ov) PO LSG 11/02/22 Bus Attendant Required: Yes Bus Attendant Services: Bus Attendant Present Bus Attendant Name: Hospital cmi Allergies No Known Allergies Allergy (Verified 10/26/23 13:49) Medication List - Last Reconciled 10/26/23 by TIFFANY Fox sennosides (senna) 17.2 mg (2 x 8.6 mg) PO BEDTIME PRN HPI Comments Details: This?a?48?yo female who is s/p LSG without hiatal hernia repair on?11/04/22. Presents for 1 year post op visit. Weight today is 134.4 pounds, with a BMI of 27.1. There has been a 78 pound weight loss,(initial weight 212.4 pounds) since starting the program on 07/15/22 reflecting a 36.7% total body weight loss and a weight loss of 53 pounds since surgery (operative weight 187.4 pounds) reflecting a 28.2% TBWL since surgery. No complaints of nausea, emesis, abdominal pain or reflux. Reports that things are going well. Not taking a multivit She is doing well overall. Her weight is very similar to a proximally 3 months ago as she wished to maintain her weight. Present meal plan includes: Orgain shake, 2 scoops, 9-11, 1-3 Meal 5 pm 6 forks protein and 6 forks vegetables 48 oz water? Exercise routine includes: walking outside daily. 1 hour 3 x per week, not tracking calories. Any post op complications: none CAYETANO: never DM: never HTN: never Hyperlipidemia: never GERD:?0-5 scale ??0 = no symptoms ??1 = symptoms noticeable but not bothersome 2 =symptoms bothersome but not daily ? 3 = symptoms bothersome and daily 4 = symptoms affect daily activities 5 = symptoms are incapacitating, unable to do daily activities ? How bad is the heartburn: 0 ? Heartburn while lying down: 0 ? Heartburn when standing up: 0 ? Heartburn after meals: 0 ? Does heartburn change your diet: 0 ? Does heartburn wake you up from sleep: 0 ? Do you have difficulty swallowin ? Do you have pain with swallowin ? If you take medicine for your reflux, does this affect your daily life: 0 Satisfaction with present condition - satisfied or not satisfied: satisfied [facility] Medical History BMI 39.0-39.9,adult Morbid obesity Right shoulder injury Left lateral epicondylitis Right shoulder tendonitis Carpal tunnel syndrome on both sides Normal vulvar exam Hemorrhoids Diverticulosis Tubular adenoma Encounter for screening colonoscopy Postmenopausal bleeding Well woman exam Nephrolithiasis GERD (gastroesophageal reflux disease) Anxiety Depression BENITO III (cervical intraepithelial neoplasia grade III) with severe dysplasia Carpal tunnel syndrome Acute arthritis Seasonal allergic rhinitis Surgical History S/P laparoscopic sleeve gastrectomy Hx of colonoscopy Tubal ligation status Family History Mother HTN (hypertension) A-fib Arthritis Father Diabetes HTN (hypertension) Sister Lupus Social History Household Members: Spouse Housing: House Are you a primary child care associate to a significant other at home: No Do you presently have visiting nurse or other home services: No Alcohol intake: current Alcohol intake frequency: does not drink Patient Tobacco Use Status: Never used Tobacco Substance Use Type: Marijuana service: No Current occupational status: employed 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 Sexual orientation: Straight/Heterosexual Gender identity: Female Female Reproductive History Menstrual Age of Menarche: 10 Physical Exam Const General: cooperative and no acute distress Orientation/consciousness: patient oriented x3 Resp Effort & Inspection: normal respiratory effort Auscultation: clear to auscultation bilaterally Cardio Rate: regular rate Rhythm: regular rhythm GI Inspection: Yes normal to inspection and Yes incision (well healed) Palpation (GI): Soft to palpation and no masses Neuro General: patient oriented x3 Assessment & Plan Assessment & Plan (1) S/P laparoscopic sleeve gastrectomy: Code(s): Z98.84 - Bariatric surgery status Category: Surgical Plan: Overall, patient is doing well. She is very satisfied with her current weight loss. She does not wish to lose any further weight. She will continue her current meal plan. We will check 1 year postop labs. She was encouraged to take a multivitamin and calcium plus D daily, given information regarding bariatric fusion. Return to the office 6 weeks Orders: Orders Hemoglobin A1c Today E66.3 - Overweight, K74.00 - Hepatic fibrosis, unspecified, Z98.84 - Bariatric surgery status Lipid Panel Today E66.3 - Overweight, K74.00 - Hepatic fibrosis, unspecified, Z98.84 - Bariatric surgery status IRON PROFILE Today E66.3 - Overweight, K74.00 - Hepatic fibrosis, unspecified, Z98.84 - Bariatric surgery status Zinc Today E66.3 - Overweight, K74.00 - Hepatic fibrosis, unspecified, Z98.84 - Bariatric surgery status C Reactive Protein Today E66.3 - Overweight, K74.00 - Hepatic fibrosis, unspecified, Z98.84 - Bariatric surgery status Vitamin A Today E66.3 - Overweight, K74.00 - Hepatic fibrosis, unspecified, Z98.84 - Bariatric surgery status TSH reflex Free T4 Today E66.3 - Overweight, K74.00 - Hepatic fibrosis, unspe cified, Z98.84 - Bariatric surgery status Ferritin Today E66.3 - Overweight, K74.00 - Hepatic fibrosis, unspecified, Z98.84 - Bariatric surgery status Insulin Today E66.3 - Overweight, K74.00 - Hepatic fibrosis, unspecified, Z98.84 - Bariatric surgery status Complete Blood Count Auto Diff Today E66.3 - Overweight, K74.00 - Hepatic fibrosis, unspecified, Z98.84 - Bariatric surgery status Vitamin B12 and Folate Today E66.3 - Overweight, K74.00 - Hepatic fibrosis, unspecified, Z98.84 - Bariatric surgery status Vitamin B1 Today E66.3 - Overweight, K74.00 - Hepatic fibrosis, unspecified, Z98.84 - Bariatric surgery status Vitamin D 25-OH Total Today E66.3 - Overweight, K74.00 - Hepatic fibrosis, unspecified, Z98.84 - Bariatric surgery status Basic Metabolic Panel Today E66.3 - Overweight, K74.00 - Hepatic fibrosis, unspecified, Z98.84 - Bariatric surgery status
[2023-10-26 13:46] VITALS: BP 155/85; PULSE 72; TEMP 36.1; O2SAT 98; BMI 27.1
== END 2023-10-26 14:10 | disposition home or self-care (01) ==
PROVIDERS: PCP Internal Medicine; Visit Provider Physician Assistant Surgical
DX: E66.3 Overweight (principal); Z68.27 Body mass index [BMI] 27.0-27.9, adult; Z90.3 Acquired absence of stomach [part of]; Z98.84 Bariatric surgery status
CPT/HCPCS: 99214

== ENCOUNTER → 2023-10-26 13:37 | Outpatient (BNVA) | payer OTHER, SELFPAY | PROVIDERS: PCP Internal Medicine; Visit Provider Physician Assistant Surgical | DX: E66.3 Overweight (principal); Z68.27 Body mass index [BMI] 27.0-27.9, adult; Z90.3 Acquired absence of stomach [part of] | CPT/HCPCS: 99212 ==

== ENCOUNTER 2023-12-22 13:27 | Outpatient (AMB) | payer OTHER, SELFPAY ==
--- NOTE | 2023-12-22 13:29 | MHC.OFFVISWM ---
VS Expanded 12/22/23 13:42 BP 146/87 H Blood Pressure Location Rt brachial Blood Pressure Position Sitting Pulse 71 Pulse Source Pulse Oximeter Temp 96.8 F Temperature Source Temporal Artery Scan Pulse Oximetry 99 Oxygen Delivery Method Room Air Height 4 ft 11 in Weight 136 lb 6.4 oz BMI 27.5 Body Fat % 29.0 Body Fat Mass 39.4 Fat Free Mass 96.8 Visceral Fat Rating 6.0 Body Water % 50.5 Body Water Mass 68.8 Muscle Mass/Score 92.0 Basal Metabolic Rate/Score 1,303 Intake Visit Reasons: (ov) PO LSG 11/02/22 Supervisor Bottle Machines Required: Yes Supervisor Bottle Machines Services: Supervisor Bottle Machines Present Supervisor Bottle Machines Name: hospital cmi Allergies No Known Allergies Allergy (Verified 12/22/23 13:35) Medication List - Last Reconciled 12/22/23 by TIFFANY Fox minoxidil mg PO sennosides (senna) 17.2 mg (2 x 8.6 mg) PO BEDTIME PRN HPI Comments Details: This?a?48?yo female who is s/p LSG without hiatal hernia repair on?11/04/22. Presents for 1 year 1 monthpost op visit. Weight today is 136.4 pounds, with a BMI of 27.5. There has been a 76 pound weight loss,(initial weight 212.4 pounds) since starting the program on 07/15/22 reflecting a 36.5% total body weight loss and a weight loss of 51 pounds since surgery (operative weight 187.4 pounds) reflecting a 28.2% TBWL since surgery. No complaints of nausea, emesis, abdominal pain or reflux. Reports that things are going well. Not taking a multivit She is doing well overall. Pt went to [place] with a friend who was having surgery there. Complains of intermittent rash to under the abdominal pannus 1-2 times per month. She has pain and itching. This has required use of antifungal cream rx by her PCP but she has run out of it. Present meal plan includes: Orgain shake, 2 scoops, 9-11, 1-3 Meal 5 pm 6 forks protein and 6 forks vegetables 48 oz water? Exercise routine includes: treadmill. 1 hour 2-3 x per week, s. [facility] Medical History BMI 39.0-39.9,adult Morbid obesity Right shoulder injury Left lateral epicondylitis Right shoulder tendonitis Carpal tunnel syndrome on both sides Normal vulvar exam Hemorrhoids Diverticulosis Tubular adenoma Encounter for screening colonoscopy Postmenopausal bleeding Well woman exam Nephrolithiasis GERD (gastroesophageal reflux disease) Anxiety Depression BENITO III (cervical intraepithelial neoplasia grade III) with severe dysplasia Carpal tunnel syndrome Acute arthritis Seasonal allergic rhinitis Surgical History S/P laparoscopic sleeve gastrectomy Hx of colonoscopy Tubal ligation status Family History Mother HTN (hypertension) A-fib Arthritis Father Diabetes HTN (hypertension) Sister Lupus Social History Household Members: Spouse Housing: House Are you a primary child day care teacher to a significant other at home: No Do you presently have visiting nurse or other home services: No Alcohol intake: current Alcohol intake frequency: does not drink Patient Tobacco Use Status: Never used Tobacco Substance Use Type: Marijuana service: No Current occupational status: employed 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 Sexual orientation: Straight/Heterosexual Gender identity: Female Female Reproductive History Menstrual Age of Menarche: 10 Physical Exam Vital Signs: Last Vital Signs Temp 96.8 F 12/22/23 13:42 Pulse 71 12/22/23 13:42 BP 146/87 H 12/22/23 13:42 Pulse Ox 99 12/22/23 13:42 Oxygen Delivery Method Room Air 12/22/23 13:42 BMI result Body Mass Index 27.5 Const General: healthy appearing and no acute distress Resp Effort & Inspection: normal respiratory effort Auscultation: clear to auscultation bilaterally Cardio Rate: regular rate Rhythm: regular rhythm GI Auscultation: normal bowel sounds Extrem General: Yes normal to inspection Assessment & Plan Assessment & Plan (1) S/P laparoscopic sleeve gastrectomy: Code(s): Z98.84 - Bariatric surgery status Category: Surgical Plan: Encouraged to return to exercise. She has returned from [place]. Continue to follow the meal plan as recommended. Suggest utilizing treadmill at home or returning to the gym. Goal of burning 400 calories 4-5 times per week. Regarding her excess skin, I have sent in a prescription for clotrimazole cream which has been effective for her in the past. She has done very well with her weight loss and as a result has excess skin of her abdomen. This has caused rashes underneath the pannus causing itching and pain. She has had to apply [id number] powders as she ran out of the cream previously prescribed by her primary care physician. She has had to increase her hygiene, showering more than once daily if she were to get the rash. Improved with antifungal creams, multiple recurrence per month. Return to clinic 4-5 weeks Medications: New clotrimazole 1% (Antifungal (clotrimazole)) 1 appl topical BID 45 grams 2RF
[2023-12-22 13:42] VITALS: BP 146/87; PULSE 71; TEMP 36; O2SAT 99; BMI 27.5
== END 2023-12-22 14:09 | disposition home or self-care (01) ==
PROVIDERS: PCP Internal Medicine; Visit Provider Physician Assistant Surgical
DX: E66.3 Overweight (principal); Z68.27 Body mass index [BMI] 27.0-27.9, adult; Z90.3 Acquired absence of stomach [part of]; Z98.84 Bariatric surgery status
CPT/HCPCS: 99213; G2211

== ENCOUNTER → 2023-12-22 13:27 | Outpatient (BNVA) | payer OTHER, SELFPAY | PROVIDERS: PCP Internal Medicine; Visit Provider Physician Assistant Surgical | DX: E66.3 Overweight (principal); M79.3 Panniculitis, unspecified; Z90.3 Acquired absence of stomach [part of]; Z68.27 Body mass index [BMI] 27.0-27.9, adult | CPT/HCPCS: 99212 ==

== ENCOUNTER 2024-01-09 12:54 | Outpatient (AMB) | payer OTHER, SELFPAY ==
--- NOTE | 2024-01-09 12:57 | A.OFFVIS_ITS ---
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 No complaints. Last Pap/HPV was negative in 12/30 Last Mammogram was BI-RADS 1 in 07/31 Last Colonoscopy in 07/29, the recommendation was to repeat in 5 years Last pelvic US 11/27 showed 0.7 cm myoma PFSH Medical History (Updated 01/09/24 @ 13:19 by Chalino Benton MD) Well woman exam BMI 39.0-39.9,adult Morbid obesity Right shoulder injury Left lateral epicondylitis Right shoulder tendonitis Carpal tunnel syndrome on both sides Normal vulvar exam Hemorrhoids Diverticulosis Tubular adenoma Encounter for screening colonoscopy Postmenopausal bleeding Nephrolithiasis GERD (gastroesophageal reflux disease) Anxiety Depression BENITO III (cervical intraepithelial neoplasia grade III) with severe dysplasia Carpal tunnel syndrome Acute arthritis Seasonal allergic rhinitis Surgical History S/P laparoscopic sleeve gastrectomy Hx of colonoscopy Tubal ligation status Family History Mother HTN (hypertension) A-fib Arthritis Father Diabetes HTN (hypertension) Sister Lupus Social History Household Members: Spouse Housing: House Are you a primary landcare officer to a significant other at home: No Do you presently have visiting nurse or other home services: No Alcohol intake: current Alcohol intake frequency: does not drink Patient Tobacco Use Status: Never used Tobacco Substance Use Type: Marijuana service: No Current occupational status: employed 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 Sexual orientation: Straight/Heterosexual Gender identity: Female Female Reproductive History Menstrual Age of Menarche: 10 Total pregnancies: 3 Full term: 3 Date of last pap smear: 12/29/22 (negative pap smear, negative hpv) Date of Mammogram: 07/12/24 (bi rad 1) Review of Systems Const All systems reviewed & are unremarkable except as noted in HPI and below Card Reports as per HPI Resp Reports as per HPI GI Reports as per HPI and Reports no additional complaints Reports as per HPI Physical Exam Vital Signs: Last Vital Signs BP 126/72 01/09/24 13:06 BMI result Body Mass Index 28.1 Const General: cooperative, healthy appearing and comfortable Chest Chest palpation & inspection: normal inspection of the chest and normal palpation of entire chest wall Breast/axilla inspection: normal inspection of the breasts and normal inspection of the axillae Breast/axilla palpation: normal palpation of the breasts, normal palpation of the axillae and no axillary lymphadenopathy Resp Effort & Inspection: normal respiratory effort Auscultation: clear to auscultation bilaterally Percussion: percussion normal Cardio Palpation: normal PMI Rate: regular rate Rhythm: regular rhythm Heart sounds: no murmurs and no rubs Peripheral pulses: Peripheral pulses 2+ throughout GI Inspection: Yes normal to inspection Palpation (GI): Soft to palpation, nontender, no guarding, not rigid and No he patosplenomegaly present Percussion: Yes normal to percussion Auscultation: normal bowel sounds Rectal Exam - Female: deferred General: Yes bladder normal to palpation External Female Exam: No lesion Speculum Exam - Vagina: normal appearance of the vagina, normal palpation, normal vaginal discharge and not erythematous Speculum Exam - Cervix: normal appearance of the cervix and normal palpation Bimanual exam- vagina & uterus: normal bimanual exam, normal palpation, uterine size normal, bladder normal to palpation, consistency normal and normal palpation Bimanual Exam- Adnexa, other: normal adnexae, no masses and no tenderness Assessment & Plan Assessment & Plan (1) Well woman exam: Comment: BENITO 1 in 09/26 with history of BENITO 3 status post LEEP BENITO 3 with positive margin in 02/25 Negative co testing in 2020 , 2021 in 2022 Code(s): Z01.419 - Encounter for gynecological examination (general) (routine) without abnormal findings Category: Medical Plan: Co testing not indicated this year. Counseled the patient about the recommended dietary allowance of 1200 mg of Calcium & 600 IU of vitamin D. Instructions given the patient to schedule next clear screening Mammogram . The patient was instructed to perform monthly self-breast exams and schedule annual exam in a year. All questions answered and the patient verbalized understanding. (2) Uterine myoma: Code(s): D25.9 - Leiomyoma of uterus, unspecified Category: Medical Plan: Will repeat ultrasound of the pelvis to compare the previous myoma sizes. Instructions given the patient to schedule an ultrasound and a follow-up appointment within 2 weeks. Order placed. All questions answered, the patient verbalized understanding. Orders: Orders US pelvic and transvaginal Today D25.9 - Leiomyoma of uterus, unspecified Coding Level of Care Code Est Pt Prev Care 40-64y(72055) Diagnoses Well woman exam Z01.419 Uterine myoma D25.9
[2024-01-09 13:06] VITALS: BP 126/72; BMI 28.1
== END 2024-01-09 13:34 | disposition home or self-care (01) ==
PROVIDERS: PCP Internal Medicine; Visit Provider Obstetrics & Gynecology
DX: Z01.419 Encounter for gynecological examination (general) (routine) without abnormal findings (principal); D25.9 Leiomyoma of uterus, unspecified
CPT/HCPCS: 99396

== ENCOUNTER → 2024-01-09 12:54 | Outpatient (BNVA) | payer OTHER, SELFPAY | PROVIDERS: PCP Internal Medicine; Visit Provider Obstetrics & Gynecology | DX: Z01.419 Encounter for gynecological examination (general) (routine) without abnormal findings (principal); D25.9 Leiomyoma of uterus, unspecified | CPT/HCPCS: 99396 ==

== ENCOUNTER 2024-01-16 11:23 | Outpatient (REF) | payer OTHER, SELFPAY | END 2024-01-16 11:24 | disposition home or self-care (01) | LOC: HO.US 11:23 | PROVIDERS: PCP Internal Medicine; Visit Provider Obstetrics & Gynecology | DX: D25.9 Leiomyoma of uterus, unspecified (principal) | CPT/HCPCS: 76830; 76856 ==

== ENCOUNTER → 2024-01-16 11:26 | Outpatient (BNV) | payer OTHER, SELFPAY | PROVIDERS: PCP Internal Medicine; Visit Provider Radiology Diagnostic Radiology | DX: D25.9 Leiomyoma of uterus, unspecified (principal); D25.0 Submucous leiomyoma of uterus | CPT/HCPCS: 76830; 76856 ==

== ENCOUNTER 2024-01-30 11:05 | Outpatient (AMB) | payer OTHER, SELFPAY ==
--- NOTE | 2024-01-30 11:07 | MHC.OFFVISWM ---
VS Expanded 01/30/24 11:14 BP 159/86 H Blood Pressure Location Rt brachial Blood Pressure Position Sitting Pulse 71 Pulse Source Pulse Oximeter Temp 98.1 F Temperature Source Temporal Artery Scan Pulse Oximetry 100 Oxygen Delivery Method Room Air Height 4 ft 11 in Weight 135 lb 6.4 oz BMI 27.3 Body Fat % 29.8 Body Fat Mass 40.4 Fat Free Mass 95.0 Visceral Fat Rating 6.0 Body Water % 50.0 Body Water Mass 67.6 Muscle Mass/Score 90.2 Basal Metabolic Rate/Score 1,284 Intake Visit Reasons: (ov) PO LSG 11/02/22 Associate Director Qa Required: Yes Associate Director Qa Services: Associate Director Qa Present Associate Director Qa Name: hospital cmi Allergies No Known Allergies Allergy (Verified 01/09/24 13:06) Medication List - Last Reconciled 01/30/24 by TIFFANY Fox clotrimazole 1% (Antifungal (clotrimazole)) 1 appl topical BID minoxidil mg PO sennosides (senna) 17.2 mg (2 x 8.6 mg) PO BEDTIME PRN HPI Comments Details: This?a?48?yo female who is s/p LSG without hiatal hernia repair on?11/04/22. Presents for 1 year 3 month post op visit. Weight today is 135.4 pounds, with a BMI of 27.4. There has been a 77 pound weight loss,(initial weight 212.4 pounds) since starting the program on 07/15/22 reflecting a 36.7% total body weight loss and a weight loss of 52 pounds since surgery (operative weight 187.4 pounds) reflecting a 28.4% TBWL since surgery. No complaints of nausea, emesis, abdominal pain or reflux. Reports that things are going well. Not taking a multivit She is doing well overall. Complains of intermittent rash to under the abdominal pannus 1-2 times per month. She has pain, odor and itching. This has required use of antifungal cream. She also is having rash in the axilla due to excess skin of her arms. Present meal plan includes: Orgain shake, 2 scoops, 9-11, 1-3 Meal 5 pm 6 forks protein and 6 forks vegetables 48 oz water? Exercise routine includes: treadmill. 1 hour 2-3 x per week, [facility] Medical History Well woman exam BMI 39.0-39.9,adult Morbid obesity Right shoulder injury Left lateral epicondylitis Right shoulder tendonitis Carpal tunnel syndrome on both sides Normal vulvar exam Hemorrhoids Diverticulosis Tubular adenoma Encounter for screening colonoscopy Postmenopausal bleeding Nephrolithiasis GERD (gastroesophageal reflux disease) Anxiety Depression BENITO III (cervical intraepithelial neoplasia grade III) with severe dysplasia Carpal tunnel syndrome Acute arthritis Seasonal allergic rhinitis Surgical History S/P laparoscopic sleeve gastrectomy Hx of colonoscopy Tubal ligation status Family History Mother HTN (hypertension) A-fib Arthritis Father Diabetes HTN (hypertension) Sister Lupus Social History Household Members: Spouse Housing: House Are you a primary healthcare consultant to a significant other at home: No Do you presently have visiting nurse or other home services: No Alcohol intake: current Alcohol intake frequency: does not drink Patient Tobacco Use Status: Never used Tobacco Substance Use Type: Marijuana service: No Current occupational status: employed 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 Sexual orientation: Straight/Heterosexual Gender identity: Female Female Reproductive History Menstrual Age of Menarche: 10 Physical Exam Const General: healthy appearing and no acute distress Resp Effort & Inspection: normal respiratory effort Auscultation: clear to auscultation bilaterally Cardio Rate: regular rate Rhythm: regular rhythm GI Auscultation: normal bowel sounds Skin Other: Significant excess skin of the abdomen, Pannus grade 2, evidence of rash to the groin bilaterally Excess skin of the arms with evidence of mild rash in the axilla Extrem General: Yes normal to inspection Assessment & Plan Assessment & Plan (1) S/P laparoscopic sleeve gastrectomy: Code(s): Z98.84 - Bariatric surgery status Category: Surgical Plan: Continue meal plan and recommend increasing exercise more consistently with a goal of burning 2000 calories per week. Encouraged to get labs done that were ordered in October. We will have her return to the office in April for her 18 month postop appointment, texting sooner should there be any questions or concerns. (2) Excess skin: Code(s): L98.7 - Excessive and redundant skin and subcutaneous tissue Category: Medical Plan: Refill for clotrimazole sent. Apply sparingly b.i.d. when rash. Given patient's excess skin of the abdomen and arms as well as its impact on her ADLs causing pain, rash, odor, increased hygiene, she would benefit from medically necessary skin removal surgery of her abdomen and arms. We will discuss this at her 18 month postop appointment. In the meantime, continue clotrimazole cream. Medications: Refilled clotrimazole 1% (Antifungal (clotrimazole)) 1 appl topical BID 45 grams 2RF
[2024-01-30 11:14] VITALS: BP 159/86; PULSE 71; TEMP 36.7; O2SAT 100; BMI 27.3
== END 2024-01-30 11:32 | disposition home or self-care (01) ==
LOC: HO.HBS 11:05
PROVIDERS: PCP Internal Medicine; Visit Provider Physician Assistant Surgical
DX: L98.7 Excessive and redundant skin and subcutaneous tissue (principal); Z98.84 Bariatric surgery status
CPT/HCPCS: 99214; G2211

== ENCOUNTER → 2024-01-30 11:05 | Outpatient (BNVA) | payer OTHER, SELFPAY | PROVIDERS: PCP Internal Medicine; Visit Provider Physician Assistant Surgical | DX: L98.7 Excessive and redundant skin and subcutaneous tissue (principal); Z98.84 Bariatric surgery status | CPT/HCPCS: 99212 ==

== ENCOUNTER 2024-02-24 08:06 | Outpatient (REF) | payer OTHER, SELFPAY ==
[2024-02-24 08:32] LABS: MANUAL DIFF FLAG NO
[2024-02-24 09:05] LABS: Basophils Percent Auto 0.5 % (0-2); Eosinophils Absolute Auto 0.1 X10*3/uL (0.0-0.4); Eosinophils Percent Auto 1.5 % (0-4); Hematocrit 40.7 % (37.0-47.0); Hemoglobin 13.9 g/dl (12.0-16.0); Imm Gran Abs Auto 0.01 X10*3/uL (0.00-0.03); Imm Gran Pct Auto 0.2 % (0.0-0.4); Lymphocytes Absolute Auto 2.6 X10*3/uL (1.2-4.9); Lymphocytes Percent Auto 42.5 % (20-40); Mean Corpuscular HGB Conc 34.2 g/dl (31.0-35.0); Mean Corpuscular Hemoglobin 30.1 pg (27.0-33.0); Mean Corpuscular Volume 88.1 fL (80.0-98.0); Mean Platelet Volume 10.5 fL (9.4-12.3); Monocytes Absolute Auto 0.6 X10*3/uL (0.1-1.2); Monocytes Percent Auto 9.4 % (2-11); Neutrophils Absolute Auto 2.8 x10*3/uL (2.0-8.3); Neutrophils Percent Auto 45.9 % (45-73); Platelet Count 227 X10*3/uL (160-400); Red Blood Count 4.62 X10*6/uL (4.20-5.50); Red Cell Distribution Width 12.4 % (11.0-16.0)
[2024-02-24 09:06] LABS: Estimated Average Glucose 91 mg/dL; Hemoglobin A1C 103.0541 umol/L; Hemoglobin A1c % 4.8 % (<6.0); Total Hemoglobin (HGBA1C) 3554.3682 umol/L
[2024-02-24 09:35] LABS: Anion Gap 7 (12-20); Blood Urea Nitrogen 15 mg/dL (9-16); C Reactive Protein 0.11 mg/dL (< or = 0.50); Calcium 8.9 mg/dL (8.4-10.2); Carbon Dioxide 31 mmol/L (22-29); Chloride 108 mmol/L (96-108); Cholesterol 187 mg/dL (<200); Estimated Glomerular Filt Rate > 60; Glucose Random 88 mg/dL (60-115); HDL Cholesterol 65 mg/dL (>40); Iron 109 mcg/dL (30-160); LDL Cholesterol Calculated 110 mg/dL (<100); Percent Iron Saturation 43 % (15-50); Sodium 142 mmol/L (135-145); Total Iron Binding Capacity 255 mcg/dL (228-428); Triglycerides 61 mg/dL (<150); Unsaturated Iron Binding 146 ug/dL
[2024-02-24 10:00] LABS: Ferritin 116 ng/mL (10-250); TSH reflex Free T4 1.81 uIU/mL (0.32-4.0); Vitamin D 25-OH Total 21.2 ng/mL (>30)
[2024-02-24 10:05] LABS: Folate 13.4 ng/mL (> or = 4.0); Vitamin B12 458 pg/mL (200-900)
[2024-02-24 10:48] LABS: Insulin 4 uU/mL (2-29)
[2024-02-28 12:34] LABS: Zinc 73 mcg/dL (60-130)
[2024-02-28 23:13] LABS: Vitamin A 44 mcg/dL (38-98)
[2024-03-01 15:23] LABS: Vitamin B1 12 nmol/L (8-30)
== END 2024-02-24 08:07 | disposition home or self-care (01) ==
LOC: HO.LAB 08:06
PROVIDERS: PCP Internal Medicine; Visit Provider Physician Assistant Surgical
DX: E66.3 Overweight (principal); Z98.84 Bariatric surgery status; K74.00 Hepatic fibrosis, unspecified
CPT/HCPCS: 36415; 80048; 80061; 82306; 82607; 82728; 82746; 83036; 83525; 83540; 84425; 84443; 84590; 84630; 85025; 86140

== ENCOUNTER 2024-03-28 10:38 | Outpatient (AMB) | payer OTHER, SELFPAY ==
--- NOTE | 2024-03-28 10:50 | A.OFFVIS_ITS ---
Intake Visit Reasons: ultra sound follow up Screw Machine Tender Required: Yes Screw Machine Tender Language: Program Engineer Services: Screw Machine Tender Present (In person) Screw Machine Tender Name: LIZ Parra Information Interpreted: non-clinical & clinical Transmission System Operator: Transmission System Operator Present (LIZ Parra) Accompanied by: Self / Same As Patient Allergies No Known Allergies Allergy (Verified 03/28/24 10:56) HPI Comments Details: Presenting for follow-up ultrasound regarding uterine myoma seen on previous pelvic ultrasound. The patient is doing well with no complaints no abnormal uterine bleeding, pelvic pressure or pain. Pelvic ultrasound done recently showed the following: Uterus: The uterus is anteverted and anteflexed, and measures 7.0 x 3.3 x 5.7 cm. Volume = 69 mL. Normal-appearing cervix. The double wall endometrial thickness is 3 mm. The uterus is smooth in contour and has mildly heterogeneous myometrial echogenicity. There are 2 visible fibroids: -Small ventral right superior mid uterine segment subserosal fibroid measuring 1.3 x 1.2 x 1.8 cm, (previously 1.6 x 1.1 x 1.8 cm). -Small ventral right superior mid uterine segment submucosal fibroid measuring 0.8 x 0.8 x 0.8 cm, unchanged. Adnexa: Both ovaries are visualized. There is normal color flow to the adnexa. There is no ovarian torsion. There is no pelvic ascites or fluid collection. There are no adnexal masses. Right ovary measures 2.4 x 1.4 x 1.7 cm. Volume = 3.0 mL. Normal sonographic appearance. Left ovary measures 1.7 x 1.0 x 1.8 cm cm. Volume = 1.6 mL. Normal sonographic appearance. [facility] Medical History Well woman exam BMI 39.0-39.9,adult Morbid obesity Right shoulder injury Left lateral epicondylitis Right shoulder tendonitis Carpal tunnel syndrome on both sides Normal vulvar exam Hemorrhoids Diverticulosis Tubular adenoma Encounter for screening colonoscopy Postmenopausal bleeding Nephrolithiasis GERD (gastroesophageal reflux disease) Anxiety Depression BENITO III (cervical intraepithelial neoplasia grade III) with severe dysplasia Carpal tunnel syndrome Acute arthritis Seasonal allergic rhinitis Surgical History S/P laparoscopic sleeve gastrectomy Hx of colonoscopy Tubal ligation status Family History Mother HTN (hypertension) A-fib Arthritis Father Diabetes HTN (hypertension) Sister Lupus Social History Household Members: Spouse Housing: House Are you a primary senior care specialist to a significant other at home: No Do you presently have visiting nurse or other home services: No Alcohol intake: current Alcohol intake frequency: does not drink Patient Tobacco Use Status: Never used Tobacco Substance Use Type: Marijuana service: No Current occupational status: employed 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 Sexual orientation: Straight/Heterosexual Gender identity: Female Female Reproductive History Menstrual Age of Menarche: 10 Review of Systems Const All systems reviewed & are unremarkable except as noted in HPI and below Reports as per HPI and Reports no additional complaints GI Reports no additional complaints Reports no additional complaints Assessment & Plan Assessment & Plan (1) Uterine myoma: Code(s): D25.9 - Leiomyoma of uterus, unspecified Category: Medical Plan: Discussed with the patient the findings on pelvic ultrasound & the risk of myosarcoma; discussed with the patient the options of treatment including expectant management versus hysterectomy; the pros and cons, risks benefits of each approach were discussed with the patient including the fact that in cases of myosarcoma, surgical treatment can lead to early diagnosis and positively affects the prognosis; after further discussion, the patient decided to proceed with expectant management. Will repeat pelvic ultrasound periodically. Instructions given to patient to call in case any of the following occurs: pressure symptoms, abnormal uterine bleeding, pelvic pain; and to schedule a 12 months pelvic ultrasound (order placed) and a follow-up appointment . All questions answered, the patient verbalized understanding and agreed with the plan . Orders: Orders US pelvic and transvaginal 1 Year D25.9 - Leiomyoma of uterus, unspecified Coding Level of Care Code Est Pt Level 3 (76001) Diagnoses Uterine myoma D25.9
--- OUTSIDE RECORDS SUMMARY | 2024-03-28 11:13 | XMS_ITS | Encounter Summary ---
Author Organization [employer] Address [address] [place] [address] Care Team Providers Care Electronic Warfare Officer Name Role Phone Basilia Colon MD Primary Care Provider + Encounter Details Date Type Department Care Team ([facility] Contact Info) Description 01/16/2024 Orders Only [facility] External Provider, [facility] Social History Tobacco Use Types Packs/Day Years Used Date Smoking Tobacco: Never Smokeless Tobacco: Never Alcohol Use Standard Drinks/Week Comments Not Currently 0 (1 standard drink = 0.6 oz pur e alcohol) oca Alcohol Answer Date Recorded Frequency of Alcohol Consumption Not on file 12/12/2023 Average Number of Drinks Not on file 024 Frequency of Binge Drinking Not on file 05/2023 Score 0 12/12/2023 Housing Stability Answer Date Recorded What is your housing situation today? I have zamzam burleson 06/22/[address] you li ve. Do you have problems with any of the following? None of the above 06/22/2023 Food Insecurity Answer Date Recorded Within the past 12 months, y ou worried that your food would run out before you got money to buy more: Never True 06/22/2023 Within the past 12 months,th e food you bought just didn't last and you didn't have enough money to get more: Never True Transportation Answer Date Recorded In the past 12 months, has l ack of transportation kept you from medical appts, meetings, work or from getting things needed for daily living? No 06/22/2023 Utilities Answer Date Recorded In the past 12 months, has t he electric, gas, oil or water company threatened to shut off services in your home? No 06/22/2023 Depression Answer Date Recorded Patient Health Questionnaire-2 Score 0 07/01/2023 Comments No Sex and Gender Information Value Date Recorded Sex Assigned at Female 12/07/2021 10:19 AM EDT Legal Sex Female 10:19 AM EDT Gender Identity Female 12/07/2021 10:19 AM EDT Sexual Orientation Choose not to disclose 2021 10:19 AM EDT documented as of this encounter Plan of Treatment Not on file documented as of this encounter Procedures Procedure Name Priority Date/Time Associated Diagnosis Comments US PELVIS TRANSVAGINAL Routine 01/16/2024 11:46 AM EST documented in this encounter Results * US Pelvis Transvaginal (01/16/2024 11:46 AM EST) Anatomical Region Laterality Modality Pelvis Ultrasound 01/16/2024 11:4 6 AM EST Narrative 03/06/2024 11:06 AM EST ? [facility] ?[address] ?[place] [address] ? Ultrasound Report ? Signed ? Patient: Serenity Gómez ?MR#: [id number] ?? [id number] ? : 1975 ?Acct:[id number] ? Age/Sex: 48 / F ?ADM Date: 01/16/24 ? Loc: HO.US ? Attending Dr: Chalino Benton MD ? Ordering Physician: Chalino Benton MD ?? Date of Service: 01/16/24 ?? Procedure(s): US pelvic and transvaginal ?? Accession Number(s): [id number] ? cc: Basilia Colon MD; Chalino Benton MD ? EXAMINATION: ? US PELVIS ? CLINICAL INFORMATION: ? Leiomyomatous uterus, unspecified. ? COMPARISON: ?? 11/27/2020. ? TECHNIQUE: ?? Ultrasound of the pelvis is performed using both transabdominal and ?? transvaginal transducers along with Doppler. Transvaginal imaging is ?? performed due to inadequate visualization transabdominally. ? Exam submitted for review 03/06/2024 10:04 AM BIKE SHOP MANAGER. ? FINDINGS: ?? Uterus: ?? The uterus is anteverted and anteflexed, and measures 7.0 x 3.3 x 5.7 ?? cm. ??Volume = 69 mL. Normal-appearing cervix. ? The double wall endometrial thickness is 3 mm. ? The uterus is smooth in contour and has mildly heterogeneous myometrial ?? echogenicity. ?? There are 2 visible fibroids: ?? -Small ventral right superior mid uterine segment subserosal fibroid ?? measuring 1.3 x 1.2 x 1.8 cm, (previously 1.6 x 1.1 x 1.8 cm). ?? -Small ventral right superior mid uterine segment submucosal fibroid ?? measuring 0.8 x 0.8 x 0.8 cm, unchanged. ? Adnexa: ?? Both ovaries are visualized. There is normal color flow to the adnexa. ?? There is no ovarian torsion. ??There is no pelvic ascites or fluid ?? collection. There are no adnexal masses. ? Right ovary measures 2.4 x 1.4 x 1.7 cm. Volume = 3.0 mL. Normal ?? sonographic appearance. ? Left ovary measures 1.7 x 1.0 x 1.8 cm cm. Volume = 1.6 mL. Normal ?? sonographic appearance. ? US/US pelvic and transvaginal ?? IMPRESSION: ?? 1. Allowing for differences in technique, there are 2 essentially ?? stable distal mid uterine segment ventral fibroids. The smaller is ?? possibly submucosal in location. ?? 2. Normal endometrium at 3 mm thickness. ?? 3. Normal ovaries bilaterally. ? Electronically signed by: ??Mitul Castorena MD ??03/06/2024 11:04 AM EST RP ? Dictated By: ?Mitul Castorena MD ? Signed By: ?<Electronically signed by Mitul Castorena MD in OV> ?03/06/24 1104 ? DD/ 1146 ? TD/TT: 01/16/24 1214 ? History Faculty Member: ? Procedure Note Armando, Image - 03/06/2024 [id number] [place] [address] Ultrasound Report Signed Patient: Serenity Gómez [facility]#: [id number] : 1975Acct:[id number] Age/Sex: 48 / FADM Date: 01/16/24 Loc: HO.US Attending Dr: Chalino Benton MD Ordering Physician: Chalino Benton MD Date of Service: 01/16/24 Procedure(s): US pelvic and transvaginal Accession Number(s): [id number] cc: Basilia Colon MD; Chalino Benton MD EXAMINATION: US PELVIS CLINICAL INFORMATION: Leiomyomatous uterus, unspecified. COMPARISON: 11/27/2020. TECHNIQUE: Ultrasound of the pelvis is performed using both transabdominal and transvaginal transducers along with Doppler. Transvaginal imaging is performed due to inadequate visualization transabdominally. Exam submitted for review 03/06/2024 10:04 AM BIKE SHOP MANAGER. FINDINGS: Uterus: The uterus is anteverted and anteflexed, and measures 7.0 x 3.3 x 5.7 cm. Volume = 69 mL. Normal-appearing cervix. The double wall endometrial thickness is 3 mm. The uterus is smooth in contour and has mildly heterogeneous myometrial echogenicity. There are 2 visible fibroids: -Small ventral right superior mid uterine segment subserosal fibroid measuring 1.3 x 1.2 x 1.8 cm, (previously 1.6 x 1.1 x 1.8 cm). -Small ventral right superior mid uterine segment submucosal fibroid measuring 0.8 x 0.8 x 0.8 cm, unchanged. Adnexa: Both ovaries are visualized. There is normal color flow to the adnexa. There is no ovarian torsion. There is no pelvic ascites or fluid collection. There are no adnexal masses. Right ovary measures 2.4 x 1.4 x 1.7 cm. Volume = 3.0 mL. Normal sonographic appearance. Left ovary measures 1.7 x 1.0 x 1.8 cm cm. Volume = 1.6 mL. Normal sonographic appearance. US/US pelvic and transvaginal IMPRESSION: 1. Allowing for differences in technique, there are 2 essentially stable distal mid uterine segment ventral fibroids. The smaller is possibly submucosal in location. 2. Normal endometrium at 3 mm thickness. 3. Normal ovaries bilaterally. Electronically signed by: Mitul Castorena MD 03/06/2024 11:04 AM EST Dictated By: Mitul Castorena MD Signed By: <Electronically signed by Mitul Castorena MD in OV> 03/06/24 1104 DD/ 1146 TD/TT: 01/16/24 1214 History Faculty Member: [facility] External Provider IMG US PROCEDURES Final Result documented in this encounter Visit Diagnoses Not on filedocumented in this encounter Care Teams Electronic Warfare Officer Relationship Specialty Start Date End Date Basilia Colon MD [address] [place] [address] PCP - General Family Medicine 12/27/17 documented as of this encounter
--- OUTSIDE RECORDS SUMMARY | 2024-03-28 11:13 | XMS_ITS | Clinical Summary ---
Author Organization [facility] ity Address [address] [place] [address] Care Team Providers Care Fishing Game Warden Name Role Phone Unavailable Primary Care Provider Unavailabl e Social History Tobacco Use Types Packs/Day Years Used Date Smoking Tobacco: Never Assessed Comments Unknown Sex and Gender Information Value Date Recorded Sex Assigned at Not on file Legal Sex Female 9:10 PM EST Gender Identity Not on file Sexual Orientation Not on file Plan of Treatment Health Maintenance Due Date Last Done Comments Breast Cancer Screening 1973 DTaP,Tdap,and Td Vaccines (1 - Tdap) 1992 Hepatitis B Vaccines (1 of 3 - 19+ 3-dose series) 1992 Cervical Cancer Screening: P ap Smear 1994 Colorectal Cancer Screening: Colonoscopy 03/04/2023 Depression Screening 03/04/2023 HIV Screening 03/04/2023 Hepatitis C Screening 03/04/2023 Social Influencers of Health Screening 03/04/2023 Pneumococcal Vaccine: 50+ Ye ars (1 of 1 - PCV) 08/01/2023 Zoster Vaccines (1 of 2) 08/01/2023 COVID-19 Vaccine ( - 2023-2 5 season) 2023 Influenza Vaccine (#1) 2023 HIB Vaccines Aged Out No longer eligi ble based on patient's age to complete this topic HPV Vaccines Aged Out No longer eligi ble based on patient's age to complete this topic Hepatitis A Vaccines Aged Out No long er eligible based on patient's age to complete this topic IPV Vaccines Aged Out No longer eligi ble based on patient's age to complete this topic MMR Vaccines Aged Out No longer eligi ble based on patient's age to complete this topic Meningococcal ACWY Vaccine Aged Out N o longer eligible based on patient's age to complete this topic Meningococcal B Vacine Aged Out No lo nger eligible based on patient's age to complete this topic Pneumococcal Vaccine: Pediat rics (0 to 5 Years) and At-Risk Patients (6 to 64 Years) Aged Out No longer eligible b ased on patient's age to complete this topic RSV Immunization Patients Un vineet 20 months Aged Out No longer eligible b ased on patient's age to complete this topic Varicella Vaccines Aged Out No longer eligible based on patient's age to complete this topic
--- OUTSIDE RECORDS SUMMARY | 2024-03-28 11:13 | XMS_ITS | Clinical Summary ---
Author Organization [employer] Address [address] [place] [address] [address] [place] [address] Care Team Providers Care Ship Ceiler Name Role Phone Basilia Colon MD Primary Care Provider + Allergies No known active allergies Medications tiZANidine (Zanaflex) 4 MG capsuleIndicati ons:Acute pain of right shoulder Take 1 capsule (4 mg) by mouth 3 times daily. 90 capsule 1 03/09/2022 Active ergocalciferol (Vitamin D2) 1.25 MG (59506 UT) capsule TAKE 1 CAPSULE BY MOUTH EVERY WEEK 12 capsule 01/19/2023 Active loratadine-pseu doephedrine ER (Claritin-D 12 Hour) 5-120 MG 12 hr tablet TAKE 1 TABLET BY MOUTH EVERY 12 HOURS 6 tablet 01/27/2023 Active FLUoxetine (PROzac) 20 MG capsule Take 1 capsule (20 mg) by mouth Once per day. 90 capsule 3 07/01/2023 5 Active Active Problems Problem Noted Date Diagnosed Date Overweight (BMI 25.0-29.9) 12/12/2023 Assessment & Plan (12/12/2023 1:25 PM EST): I congratulated her for weight reduction, sp bariatric surgery on 10/2022, currently on regular small portions diet. Discussed re continuing exercise, life style modifications. FU with bariatric surgery. S/P laparoscopic sleeve gastrectomy 12/12/2023 Assessment & Plan (12/12/2023 1:26 PM EST): On 10/2022 at [facility] Screening mammogram for breast cancer 07/01/2023 Assessment & Plan (07/01/2023 12:44 PM EDT): To be ordered Hair loss 07/01/2023 Assessment & Plan (07/01/2023 12:44 PM EDT): Followed by dermatology Pt is wearing a wig Large breasts 12/27/2022 Assessment & Plan (12/27/2022 3:24 PM EST): Decreased in size since bariatric surgery F/u PRN Rotator cuff tendinitis, right 09/20/2022 Dietary counseling 09/20/2022 Lateral epicondylitis of left elbow 06/16/2022 Assessment & Plan (06/16/2022 11:16 AM EDT): counseled pt to schedule an appointment with OT. Exercise counseling 06/16/2022 Arthritis 03/09/2022 Carpal tunnel syndrome 03/09/2022 Generalized anxiety disorder 03/09/2022 Hearing loss of right ear 03/09/2022 Low vision, both eyes 03/09/2022 Elevated blood pressure reading 03/09/2022 Assessment & Plan (12/12/2023 1:25 PM EST): Controlled. Continue off medications for now Counseled re low salt diet/increase moderate physical activity. Check home BP BIW and prn CP/SHEETS/SAENZ Non smoking patient. Fu 6 m Assessment & Plan (07/01/2023 12:46 PM EDT): Controlled. Continue off medications for now Counseled re low salt diet/increase moderate physical activity. Check home BP BIW and prn CP/SHEETS/SAENZ Non smoking patient. Fu 6 m Assessment & Plan (06/16/2022 11:22 AM EDT): r/o essential hypertension pt to check BP at home, order labs and FU with me in 3 months Counseled re low salt diet/increase moderate physical activity. Check home BP BIW and prn CP/SHEETS/SAENZ Non smoking patient. Counseled to fu with weight management center. Rheumatoid arthritis involvi ng multiple sites with positive rheumatoid factor 03/09/2022 Assessment & Plan (07/01/2023 12:44 PM EDT): Pt has positive RF and mild inflammation but no significantly active disease Continue serology evaluation every yr Pt to reconsult PRN w/ Sx of inflammatory arthritis, tenosynovitis, persistent fever, and rash Fu w me in 6 months Assessment & Plan (12/27/2022 3:24 PM EST): Currently not clinically active Seen by Rheumatology more than 2 years go Rheumatology note appreciated, will continue f/u RF titers and other labs every year and will refer back to Rheumatology. If clinically indicated for significant change for inflammatory markers. Low back pain 11/28/2020 Depressive disorder 11/28/2020 Assessment & Plan (06/16/2022 11:21 AM EDT): Doing well on fluoxetine 20 mg pt feels safe at home and FU with me PRN Cervical intraepithelial dorinda plasia grade III with severe dysplasia 03/06/2018 Assessment & Plan (07/01/2023 12:46 PM EDT): Resolved, last PAP was wnl Fu w/ TENSILE TESTER for PAP smear 12/2023 Assessment & Plan (06/16/2022 11:21 AM EDT): PAP smear on 12/03/21 showed NIL/+HPV FU with TENSILE TESTER on 11/2022 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 Resolved Problems Problem Noted Date Diagnosed Date Resolved Date Obesity (BMI 30.0-34.9) 12/27/2022 11/0 05/2023 Assessment & Plan (12/27/2022 3:25 PM EST): Status Post bariatric surgery Significant decrease in BMI Continue Multivitamins Iron + zinc supplementation F/u [facility] obesity clinic F/u in 6 mos Morbid obesity 09/03/2011 12/12/2023 Overview (12/12/2023): Sp Laparoscopic sleeve gastrectomy on 11/04/22 at [facility] Assessment & Plan (06/16/2022 11:20 AM EDT): Discussed re weight reduction options including exercise, life style modifications, diet, referral to sales product specialist. Discussed re lower calorie intake, increase dietary fiber I gave her information about weight management program for baritric surgery Encounters Date Type Department Care Team Description 02/24/2024 Orders Only GENERIC EXTERNAL DATA DEPARTMENT Provider, Generic External Data 01/16/2024 Orders Only [facility] External Provider, [facility] from Last 3 Months Immunizations Name Administration Dates Next Due Hep B, adult 04/17/2007,11/16/2006,10/14/2006 Influenza injectable quadriv alent preservative free 11/28/2020 Influenza, IIV3, injectable 11/07/2020, 1 Tdap 01/05/2011 Social History Tobacco Use Types Packs/Day Years Used Date Smoking Tobacco: Never Smokeless Tobacco: Never Tobacco Cessation:Counseling Given: Not Answered Alcohol Use Standard Drinks/Week Comments Not Currently 0 (1 standard drink = 0.6 oz pur e alcohol) oca Alcohol Answer Date Recorded Frequency of Alcohol Consumption Not on file 12/12/2023 Average Number of Drinks Not on file 024 Frequency of Binge Drinking Not on file 05/2023 Score 0 12/12/2023 Housing Stability Answer Date Recorded What is your housing situation today? I have zamzamcorrie burleson 06/22/[address] you [...] not to disclose 2021 10:19 AM EDT Last Filed Vital Signs Vital Sign Reading Time Taken Comments Blood Pressure 130/80 12/12/2023 1:05 PM EST Pulse 70 12/12/2023 1:05 PM EST Temperature 36.2 ??C (97.1 ??F) 12/12/2023 1:05 PM ES T Respiratory Rate 18 12/12/2023 1:05 PM EST Oxygen Saturation 99% 12/12/2023 1:05 PM EST Inhaled Oxygen Concentration - - Weight 63.1 kg (139 lb 3.2 oz) 12/12/2023 1:05 P M EST Height 152.4 cm (5') 12/12/2023 1:05 PM EST Body Mass Index 27.19 12/12/2023 1:05 PM EST Plan of Treatment Health Maintenance Due Date Last Done Comments CT Colonography 1975 FIT DNA/Cologuard 1975 FIT 1975 FOBT 1975 Sigmoidoscopy 1975 Family Planning (PISQ) 1988 Hepatitis C Screening 08/01/1991 DTaP/Tdap/Td Vaccines (2 - Td or Tdap) 01/05/2021 01/05/2011 Pneumococcal Vaccine: 50+ Years (1 of 1 - PCV) 08/01/2023 Zoster Vaccines (1 of 2) 08/01/2023 COVID-19 Vaccine (3 - 2023- season) 2023 11/07/2020, 10/17/2020 Influenza Vaccine (#1) 2023 , 11/07/2020, 11/03/2010 SDOH Screening 06/21/2024 06/22/2023 Depression Screening 06/30/2024 07/01/2023, 07/01/19 24 Tobacco Screening 06/30/2024 07/01/2023 Mammogram 07/12/2024 07/13/2023, 06/09, 07/07/2022, Additional history exists Alcohol/Substance Use Screening 12/11/2024 12/12/2023 Colonoscopy 07/08/2026 07/08/2021 Colorectal Cancer Screening 07/08/2026 Cervical Cancer Screening 12/30/2027 HPV/Cotest 12/30/2027 11/11/2021, 100 06/2021, 11/11/2020, Additional history exists Pap Smear 12/30/2027 12/29/2022, 100 06/2020, 11/06/2020 Lipid Panel 02/23/2029 02/24/2024, 07/08, 10/22/2022, Additional history exists RSV Patients and Patients Aged 60 years or older (1 - 1-dose 75+ series) 2048 Hepatitis B Vaccines Completed 04/17/2007, 11/16/2006, 10/14/2006 HIV Screening Completed 10/17/2020 HIB Vaccines Aged Out No longer eligi [...] patient's age to complete this topic Meningococcal Vaccine Aged Out No jami geoff eligible based on patient's age to complete this topic RSV under 20 months Aged Out No longe r eligible based on patient's age to complete this topic Rotavirus Vaccines Aged Out No longer eligible based on patient's age to complete this topic Procedures Procedure Name Priority Date/Time Associated Diagnosis Comments VITAMIN B1 Routine 02/24/2024 8:29 AM EST VITAMIN A Routine 02/24/2024 8:29 AM EST ZINC Routine 02/24/2024 8:29 AM EST INSULIN Routine 02/24/2024 8:29 AM EST VITAMIN B12/FOLATE, SERUM PANEL Routine 02/24/2024 8:29 AM EST TSH W/REFLEX TO FT4 Routine 02/24/2024 8 :29 AM EST VITAMIN D,25-OH,TOTAL,IA Routine 02/24/2024 8:29 AM EST FERRITIN Routine 02/24/2024 8:29 AM EST LIPID PANEL, STANDARD Routine 02/24/2024 8:29 AM EST C-REACTIVE PROTEIN Routine 02/24/2024 8: 29 AM EST IRON AND TOTAL IRON BINDING CAPACITY Routine 02/24/2024 8:29 AM EST BASIC METABOLIC PANEL Routine 02/24/2024 8:29 AM EST HEMOGLOBIN A1C Routine 02/24/2024 8:29 AM EST CBC WITH AUTO DIFFERENTIAL Routine 02/24/2024 8:29 AM EST US PELVIS TRANSVAGINAL Routine 11:46 AM EST BI MAMMOGRAM SCREENING TOMOSYNTHESIS BILATERAL Routine 07/13/2023 12:03 PM EDT Screening mammogram for breast cancer PAP SMEAR Routine 12/29/2022 2:49 PM EST ZZZ HISTORICAL HPV E6/E7 RFLX OLGA 16 18/45 Routine 11/11/2021 3:37 PM EDT HM COLONOSCOPY Routine 07/08/2021 9:47 AM EDT HIV 1/2 ANTIGEN/ANTIBODY, FOURTH GENERATION W/RFL Routine 10/17/2020 1:05 PM EDT from Last 3 Months or Most Recently Relevant to Health Maintenance Results * (ABNORMAL) Vitamin D, 25-Hydroxy, Total, Immunoassay (02/24/2024 8:29 AM EST) Vitamin D 25-OH Total 21.2(L) >30 ng/mL [facility] Comment:Health Based Referen ce Values*< 20 ng/mL Udipyghpl50-23 ng/mL Insufficient> 30 ng/mL Sufficient*Sondra DOWNING. N Engl J Med. 2007;357:266-280Care must be taken in interpreting Vitamin D results fromdifferent laboratories and methodologies. Published datademonstrated that results from patients undergoinghemodialysis may show a negative bias when tested withvarious automated 25-OH vitamin D assays when compared toLC-MS/MS.When testing samples from patients whose predominant form ofVitamin D is Vitamin D2, such as patients receiving VitaminD2 supplementation, results that are subtherapeutic shouldbe confirmed with another method such as LC-MS/MS. 02/24/2024 8:29 AM EST 02/24/2024 8:29 AM EST us Generic External Data Provider LAB BLOOD ORDERAB LES Final Result Performing Organization Address [facility] Co de Phone Number [facility] [address] [place] [phone] * Vitamin B12 (Cobalamin) and Folate Panel, Serum (02/24/2024 8:29 AM EST) Vitamin B12 458 200 - 900 pg/mL [facility] Comment:NORMAL 200-900 PG/ML INDETERMINATE 160-199 PG/ML DEFICIENT < 160 PG/ML Folate 13.4 > or = 4.0 ng/mL [facility] Comment:Reference Values:> o r = 4.0 ng/mL< 4.0 ng/mL suggests folate deficiency Methotrexate, aminopterin and folinic acid(leucovorin) are chemotherapeutic agents whose molecularstructures are similar to folate; therefore, the Architectfolate assay cannot be used for patients using these drugs. 02/24/2024 8:29 AM EST 02/24/2024 8:29 AM EST us Generic External Data Provider LAB BLOOD ORDERAB LES Final Result Performing Organization Address City/[facility]/ZIP Co de Phone Number [facility] [address] [place] [address] [phone] * TSH with Reflex to Free T4 (02/24/2024 8:29 AM EST) TSH reflex Free T4 1.81 0.32 - 4.0 uIU/mL [facility] 02/24/2024 8:29 AM EST 02/24/2024 8:29 AM EST us Generic External Data Provider LAB BLOOD ORDERAB LES Final Result [facility] [address] [place] [phone] * (ABNORMAL) CBC auto differential (02/24/2024 8:29 AM EST) Pathologist [facility] White Blood Count 6.0 4.8 - 10.8 X10*3/uL [facility] Red Blood Count 4.62 4.20 - 5.50 X10*6/uL [facility] Hemoglobin 13.9 12.0 - 16.0 g/dl [facility] Hematocrit 40.7 37.0 - 47.0 % [facility] Mean Corpuscular Volume 88.1 80.0 - 98.0 fL [facility] Mean Corpuscular Hemoglobin 30.1 27.0 - 33.0 pg [facility] Mean Corpuscular HGB Conc 34.2 31.0 - 35.0 g/dl [facility] Red Cell Distribution Width 12.4 11.0 - 16.0 % [facility] Platelet Count 227 160 - 400 X10*3/uL [facility] Mean Platelet Volume 10.5 9.4 - 12.3 fL [facility] Neutrophils Percent Auto 45.9 45 - 73 % [facility] Imm Gran Pct Auto 0.2 0.0 - 0.4 % [facility] Lymphocytes Percent Auto 42.5(H) 20 - 40 % [facility] Monocytes Percent Auto 9.4 2 - 11 % [facility] Eosinophils Percent Auto 1.5 0 - 4 % [facility] Basophils Percent Auto 0.5 0 - 2 % [facility] NRBC Pct Auto 0.0 0.0 - 0.2 /100WBC [facility] Neutrophils Absolute Auto 2.8 2.0 - 8.3 x10*3/uL [facility] Imm Gran Abs Auto 0.01 0.00 - 0.03 X10*3/uL [facility] Lymphocytes Absolute Auto 2.6 1.2 - 4.9 X10*3/uL [facility] Monocytes Absolute Auto 0.6 0.1 - 1.2 X10*3/uL [facility] Eosinophils Absolute Auto 0.1 0.0 - 0.4 X10*3/uL [facility] Basophils Absolute Auto 0.0 0.0 - 0.2 X10*3/uL [facility] NRBC Abs Auto 0.000 0.0 - 0.012 X10*3/uL [facility] 02/24/2024 8:29 AM EST 02/24/2024 8:29 AM EST Generic External Data Provider LAB BLOOD ORDERAB LES Final Result Performing Organization Address [facility] de Phone Number [facility] [address] [place] [phone] * Iron And Total Iron Binding Capacity (02/24/2024 8:29 AM EST) Iron 109 30 - 160 mcg/dL [facility] Total Iron Binding Capacity 255 228 - 428 mcg/dL [facility] Percent Iron Saturation 43 15 - 50 % [facility] Unsaturated Iron Binding 146 ug/dL [facility] 02/24/2024 8:29 AM EST 02/24/2024 8:29 AM EST us Generic External Data Provider LAB BLOOD ORDERAB LES Final Result Performing Organization Address [facility] Co de Phone Number [facility] [address] [place] [phone] * Insulin (02/24/2024 8:29 AM EST) Insulin 4 2 - 29 uU/mL [facility] Comment:This test was perfor med using the De chemiluminescentmethod. Values obtained from different assay methods cannot beused interchangeably. This insulin assay shows a possiblecross-reactivity with antibodies generated against insulin(immunoreactive insulin and some patients treated withbovine or porcine insulin). Insulin levels may be measuredlower in patients with insulin autoimmune syndrome orfamilial high pro-insulinemia. 02/24/2024 8:29 AM EST 02/24/2024 8:29 AM EST us Generic External Data Provider LAB BLOOD ORDERAB LES Final Result Performing Organization Address City/[facility]/ZIP Co de Phone Number [facility] [address] [place] [phone] * Zinc (02/24/2024 8:29 AM EST) Zinc 73 60 - 130 mcg/dL [facility] Comment:This test was develo ped and its analytical performancecharacteristics have been determined by [employer] [place], [place]. It hasnot been cleared or approved by the U.S. Food and DrugAdministration. This assay has been validated pursuantto the CLIA regulations and is used for clinicalpurposes.THIS TEST WAS PERFORMED AT:[employer] [place] [address]MAPKSGFTRICIA PETERSEN MD,PHD 02/24/2024 8:29 AM EST 02/24/2024 8:29 AM EST us Generic External Data Provider LAB BLOOD ORDERAB LES Final Result Performing Organization Address City/[facility]/ZIP Co de Phone Number [facility] [address] [place] [phone] * Vitamin A (02/24/2024 8:29 AM EST) Vitamin A (Retinol) 44 38 - 98 mcg/dL [facility] Comment:Vitamin supplementat ion within 24 hours prior toblood draw may affect the accuracy of the results.This test was developed and its analytical performancecharacteristics have been determined by [employer] [place], [place]. It hasnot been cleared or approved by the U.S. Food and DrugAdministration. This assay has been validated pursuantto the CLIA regulations and is used for clinicalpurposes.THIS TEST WAS PERFORMED AT:[employer] [place] [address]SDOFXJITRICIA PETERSEN MD,PHD 02/24/2024 8:29 AM EST 02/24/2024 8:29 AM EST Generic External Data Provider LAB BLOOD ORDERAB LES Final Result Performing Organization Address City/[facility] Co de Phone Number [facility] [address] [place] [phone] * C-reactive Protein (02/24/2024 8:29 AM EST) Pathologist [facility] C Reactive Protein 0.11 < or = 0.50 mg/dL [facility] 02/24/2024 8:29 AM EST 02/24/2024 8:29 AM EST Generic External Data Provider LAB BLOOD ORDERAB LES Final Result Performing Organization Address [facility] Co de Phone Number [facility] [address] [place] [phone] * Vitamin B1 (02/24/2024 8:29 AM EST) Pathologist [facility] Vitamin B1 12 8 - 30 nmol/L [facility] Comment:Vitamin supplementat ion within 24 hours prior toblood draw may affect the accuracy of the results.This test was developed and its analytical performancecharacteristics have been determined by [employer] [place], [place]. It hasnot been cleared or approved by the U.S. Food and DrugAdministration. This assay has been validated pursuantto the CLIA regulations and is used for clinicalpurposes.THIS TEST WAS PERFORMED AT:[employer] [place] [address]ONAPHVTTRICIA PETERSEN MD,PHD 02/24/2024 8:29 AM EST 02/24/2024 8:29 AM EST Generic External Data Provider LAB BLOOD ORDERAB LES Final Result Performing Organization Address [facility]/ZIP Co de Phone Number [facility] [address] [place] [phone] * Hemoglobin A1c (02/24/2024 8:29 AM EST) Hemoglobin A1c 4.8 <6.0 % [facility] Comment:Hemoglobin A1C Refer ence Range Adults: 4.8 - 6.0 % Non diabetic: < 6.0 % Goal: < 7.0 %Additional Action Suggested: > 8.0 %Note: Hemoglobin A1c results are invalid for patients with abnormal amounts of HbF. Blood transfusions may impact the HbA1c concentration in the patient sample. Estimated Average Glucose 91 mg/dL [facility] Comment:eAG = Estimated ave rage glucose which is %A1C expressed asaverage glucose, using the formula of the [id number]-[id number] Glucose study (ADAG), Diabetes Care, Vol.31,#8,Sep. 2007 02/24/2024 8:29 AM EST 02/24/2024 8:29 AM EST Generic External Data Provider LAB BLOOD ORDERAB LES Final Result Performing Organization Address [facility] Co de Phone Number [facility] [address] [place] [phone] * Ferritin (02/24/2024 8:29 AM EST) Ferritin 116 10 - 250 ng/mL [facility] 02/24/2024 8:29 AM EST 02/24/2024 8:29 AM EST Generic External Data Provider LAB BLOOD ORDERAB LES Final Result Performing Organization Address [facility] Co de Phone Number [facility] [address] [place] [phone] * (ABNORMAL) Lipid Panel, Standard (02/24/2024 8:29 AM EST) Triglycerides 61 <150 mg/dL [facility] Comment:Desirable Triglyceri de: less than 150 mg/dLBorderline High Triglyceride 150-199 mg/dLHigh Triglyceride: 200-499 mg/dLVery High Triglyceride: greater than or equal to 5OO mg/dL Cholesterol 187 <200 mg/dL [facility] Comment:Desirable Cholestero l: less than 200 mg/dLBorderline High Cholesterol: 200-239 mg/dLHigh Cholesterol: greater than 239 mg/dL LDL Cholesterol Calculated 110(H) <100 mg/dL [facility] Comment:Desirable LDL: less than 100 mg/dLNear Optimal/Above Optimal LDL: 110- 129 mg/dLBorderline High LDL: 130-159 mg/dLHigh LDL: 160-189 mg/dLVery High LDL: greater than or equal to 190 mg/dL HDL Cholesterol 65 >40 mg/dL [facility] Comment:Desirable HDL: great er than 40 mg/dL Note: This HDL assay may give artificially low results in patients with liver disease. 02/24/2024 8:29 AM EST 02/24/2024 8:29 AM EST us Generic External Data Provider LAB BLOOD ORDERAB LES Final Result Performing Organization Address City/[facility]/ZIP Co de Phone Number [facility] [address] [place] [phone] * (ABNORMAL) Basic Metabolic Panel (02/24/2024 8:29 AM EST) Sodium 142 135 - 145 mmol/L [facility] Potassium 4.0 3.3 - 5.1 mmol/L [facility] Chloride 108 96 - 108 mmol/L [facility] Carbon Dioxide 31(H) 22 - 29 mmol/L [facility] Anion Gap 7(L) 12 - 20 [facility] Urea Nitrogen (BUN) 15 9 - 16 mg/dL [facility] Creatinine, Serum 0.68 0.5 - 1.4 mg/dL [facility] Estimated Glomerular Filt Rate >60 [facility] Comment:Chronic Kidney Disea se: Estimated GFR < 60 mL/min/1.94b1Hwrvmd Kidney Disease: Estimated GFR < 15 mL/min/1.73m2 Glucose 88 60 - 115 mg/dL [facility] Calcium 8.9 8.4 - 10.2 mg/dL [facility] 02/24/2024 8:29 AM EST 02/24/2024 8:29 AM EST us Generic External Data Provider LAB BLOOD ORDERAB LES Final Result Performing Organization Address City/State/[facility] Co de Phone Number [facility] [address] [place] [phone] * US Pelvis Transvaginal (01/16/2024 11:46 AM EST) Anatomical Region Laterality Modality Pelvis Ultrasound 01/16/2024 11:4 6 AM EST Narrative 03/06/2024 11:06 AM EST ? [facility] ?[address] ?[place] [address] ? Ultrasound Report ? Signed ? Patient: Barrera Munoz,Serenity M ?MR#: [id number] ?? [id number] ? : 1975 ?Acct:[id number] ? Age/Sex: 48 / F ?ADM Date: 12/09/24 ? Loc: HO.US ? Attending Dr: Chalino Benton MD ? Ordering Physician: Chalino Benton MD ?? Date of Service: 01/16/24 ?? Procedure(s): US pelvic and transvaginal ?? Accession Number(s): [id number] ? cc: Basilia Colon MD; Chalino Benton MD ? EXAMINATION: ? US PELVIS ? CLINICAL INFORMATION: ? Leiomyomatous uterus, unspecified. ? COMPARISON: ?? 11/27/2020. ? TECHNIQUE: ?? Ultrasound of the pelvis is performed using both transabdominal and ?? transvaginal transducers along with Doppler. Transvaginal imaging is ?? performed due to inadequate visualization transabdominally. ? Exam submitted for review 03/06/2024 10:04 AM SOFTWARE DEVELOPMENT ANALYST. ? FINDINGS: ?? Uterus: ?? The uterus [...] DD/ 1146 ? TD/TT: 01/16/24 1214 ? Waste Management Engineer: ? Procedure Note Donotuseinterpreter, Image - 03/06/[address] [address] Ultrasound Report Signed Patient: Serenity Gómez MMR#: [id number] : 1975Acct:[id number] Age/Sex: 48 / FADM Date: 01/16/24 Loc: HO.US Attending Dr: Chalino Benton MD Ordering Physician: Chalino Benton MD Date of Service: 01/16/24 Procedure(s): US pelvic and transvaginal Accession Number(s): [id number] cc: Basilia Colon MD; Chalino Benton MD EXAMINATION: US PELVIS CLINICAL INFORMATION: Leiomyomatous uterus, unspecified. COMPARISON: 11/27/2020. TECHNIQUE: Ultrasound of the pelvis is performed using both transabdominal and transvaginal transducers along with Doppler. Transvaginal imaging is performed due to inadequate visualization transabdominally. Exam submitted for review 03/06/2024 10:04 AM SOFTWARE DEVELOPMENT ANALYST. FINDINGS: Uterus: The uterus is anteverted and [...] 03/06/24 1104 DD/ 1146 TD/TT: 01/16/24 1214 Waste Management Engineer: [facility] External Provider IMG US PROCEDURES Final Result * BI Mammogram Screening Tomosynthesis Bilateral (07/13/2023 12:03 PM EDT) Anatomical Region Laterality Modality Breast Bilateral Mammography 07/13/2023 12:0 3 PM EDT Narrative 08/09/2023 8:09 AM EDT ? [facility] [place] ? [address] ?[place] [address] ? Mammography Report ? Signed ? Patient: Serneity Gómez ?MR#: [id number] ?? [id number] ? : 1975 ?Acct:[id number] ? Age/Sex: 47 / F ?ADM Date: 06/05/24 ? Loc: HO.MAMMO ? Attending Dr: Basilia Colon MD ? Ordering Physician: Isaiah,Lula. MD ?Results: 1Ne ?? gative ? Date of Service: 07/13/23 ?Follow Up: 1 Year From Orig ?? inal Mammogram ? Procedure(s): MM tomosynthesis screening BI ?? Accession Number(s): [id number] ? cc: Basilia Colon MD ? EXAMINATION: ?? MM SCREENING DIGITAL BREAST TOMOSYNTHESIS, BILATERAL ? CLINICAL INFORMATION: ? Screening. Asymptomatic. ? COMPARISON: ?? Mammography: This study is compared with prior exams dating back to ?? 2018. ? TECHNIQUE: ?? Digital breast tomosynthesis is performed in both the craniocaudal and ?? mediolateral oblique views along with computer-aided detection (CAD). ?? Synthesized 2D images are generated from the tomosynthesis. ? FINDINGS: ?? There are scattered areas of fibroglandular density (ACR BI-RADS breast ?? composition Category b). ? There are no significant masses, abnormal calcifications, or other ?? abnormalities. ? MM/MM tomosynthesis screening BI ?? IMPRESSION: ?? No mammographic evidence of malignancy. ? ASSESSMENT: ? BI-RADS BI-RADS 1 - Negative ? RECOMMENDATION: ?? Routine annual mammography screening. ? 1 year F/U ? This examination should not preclude the clinical evaluation of a ?? suspicious palpable abnormality. ? This patient's information was entered into a reminder system with a ?? target due date for their next mammogram. ? Dictated By: ?Belle Hernandez MD ? Signed By: ?<Electronically signed by Belle Hernandez MD in OV> ? 08/09/23 0805 ? DD/ 1203 ? TD/TT: ? Waste Management Engineer: ? Procedure Note Donotuseinterpreter, Image - 08/09/2023 [facility] [address] [place] [address] Mammography Report Signed Patient: Serenity Gómez MMR#: [id number] : 1975Acct:[id number] Age/Sex: 47 / FADM Date: 07/13/23 Loc: HO.MAMMO Attending Dr: Basilia Colon MD Ordering Physician: Basilia Colon MDResults: 1Ne gative Date of Service: 07/13/23Follow Up: 1 Year From Orig inal Mammogram Procedure(s): MM tomosynthesis screening BI Accession Number(s): [id number] cc: Basilia Colon MD EXAMINATION: MM SCREENING DIGITAL BREAST TOMOSYNTHESIS, BILATERAL CLINICAL INFORMATION: Screening. Asymptomatic. COMPARISON: Mammography: This study is compared with prior exams dating back to 2019. TECHNIQUE: Digital breast tomosynthesis is performed in both the craniocaudal and mediolateral oblique views along with computer-aided detection (CAD). Synthesized 2D images are generated from the tomosynthesis. FINDINGS: There are scattered areas of fibroglandular density (ACR BI-RADS breast composition Category b). There are no significant masses, abnormal calcifications, or other abnormalities. MM/MM tomosynthesis screening BI IMPRESSION: No mammographic evidence of malignancy. ASSESSMENT: BI-RADS BI-RADS 1 - Negative RECOMMENDATION: Routine annual mammography screening. 1 year F/U This examination should not preclude the clinical evaluation of a suspicious palpable abnormality. This patient's information was entered into a reminder system with a target due date for their next mammogram. Dictated By: Belle Hernandez MD Signed By: <Electronically signed by Belle Hernandez MD in OV> 08/09/23 0805 DD/ 1203 TD/TT: Waste Management Engineer: Basilia Colon MD IMG BI PROCEDURES Edited Result - Final * Pap Smear (12/29/2022 2:49 PM EST) 12/29/2022 2:49 PM EST 01/03/2023 7:00 AM EST Narrative [facility] - 01/13/2023 4:11 PM EST ----- ------- Name: Serenity Gómez ? Age/Sex: 47/F ? : 1975 Unit#: [id number] ?? Attend Dr: Chalino Benton MD ?Re12/29/22 ?Status: DEP REF ? Location: HO.LNP ?Disch: ? ----- ------- SPEC : [id number] ?RECD: 01/03/23 ? STATUS: ??SOUT ? REQ NUM: [id number] ? AN: 12/29/22-3847 ? SUBM DR: Chalino Benton MD ? ENTERED: ??01/04/23-1317 ?SP TYPE: Pap Smr ?OTHR DR: Basilia Colon MD ? ORDERED: ??Pap Smear ? Interpretation ?? Satisfactory for evaluation. ?? Negative for intraepithelial lesion or malignancy. ?HPV mRNA E6/E7: ?NOT DETECTED ? This assay detects E6/E7 viral messenger RNA (mRNA) from 14 high-risk HPV types (16, 18, ?? 31, 33, 35, 39, 45, 51, 52, 56, 58, 59, 66, 68) ?? HPV testing performed by [facility], [place], [place]. ??See reference laboratory ?? portion of the EMR for entire report. ?Clinical Information LMP: Postmenopausal Previous PAP test: 2021, ASCUS, HPV+ ? Material Received ?? ThinPrep-Cervical Copies To: ?? Basilia Colon MD ?? [address] [facility] ?? [place] [address] ? Chalino Benton MD ?? [address] [place] [address] [address] ?? [place] [address] ?? [phone] ----- ------- Signed (signature on file) Roxy R Botto, CT (ASCP) 01/13/23 1611 ? ----- ------- ? END OF REPORT ? Generic External Data Provider LAB CYTOLOGY ORDMary GIBBONS Final Result Performing Organization Address [facility] Co de Phone Number [facility] [address] [place] [phone] * HPV E6/E7 RFLX OLGA 16 18/45 (11/11/2021 3:37 PM EDT) Pathologist [facility] HPV mRNA E6/E7 rflx Not Detected Not Detected [facility]VERTED [facility]GACY LAB[facility] Comment: Methodology: Machine Ii Cutter-Mediated Amplification This assay detects E6/E7 viral messenger RNA (mRNA) from 14 high-risk HPV types (16,18,31,33,35,39,45,51,52,56,58,59,66,68). Cervical sources are required for HPV testing. If a vaginal source from a patient who has had a total hysterectomy with removal of cervix was submitted, please contact the testing laboratory for alternative testing options. For additional information, please refer to http://education.Smailex/faq/YGM147f1 (This link if provided for information/ educational purposes only.) THIS TEST WAS PERFORMED AT: [facility] [address] [place] [address],[address] [place], [place] ??[phone] ELIZABETH ANDRES MD 11/11/2021 3:37 PM EDT Chalino Benton MD HISTORICAL/NON ORDERABLE LABS Fi nal Result Performing Organization Address City/[facility]/ZIP Co de Phone Number CONVERTED LEGACY LABS * Hm Colonoscopy (07/08/2021 9:47 AM EDT) Historical Provider HEALTH MAINTENANCE Final Result * HIV 1/2 ANTIGEN/ANTIBODY,FOURTH GENERATION W/RFL (10/17/2020 1:05 PM EDT) HIV-1/2 ANTIGEN AND ANTIBODIES, 4TH GENERATION W/ REFLEX NON-REACT ELENA NON-REACT ELENA [facility] Comment: HIV-1 antigen and HIV-1/HIV-2 antibodies were not detected. There is no laboratory evidence of HIV infection. ?? PLEASE NOTE: This information has been disclosed to you from records whose confidentiality may be protected by state law. ??If your state requires such protection, then the state law prohibits you from making any further disclosure of the information without the specific written consent of the person to whom it pertains, or as otherwise permitted by law. A general authorization for the release of medical or other information is NOT sufficient for this purpose. ? For additional information please refer to http://education.Smailex/faq/IGK592 (This link is being provided for informational/ educational purposes only.) ? The performance of this assay has not been clinically validated in patients less than 2 years old. ?? 10/17/2020 1:05 PM EDT Basilia Colon MD LAB BLOOD ORDERABLES Fin al Result [facility] [address] from Last 3 Months or Most Recently Relevant to Health Maintenance Insurance [facility] [facility] Care Teams Ship Ceiler Relationship Specialty Start Date End Date Basilia Colon MD [address] [place] [phone] PCP - General Family Medicine 12/27/17
--- OUTSIDE RECORDS SUMMARY | 2024-03-28 11:14 | XMS_ITS | Encounter Summary ---
Author Organization [facility] Address [address] [place] [address] Care Team Providers Care Chief School Finance Officer Name Role Phone Unavailable Primary Care Provider Unavailabl e Encounter Details Date Type Department Care Team (Late st Contact Info) Description 03/12/2024 3:40 PM EST Office Visit [facility] [address] [place] [address] Thaddeus Wright, [facility] [address] [place] [address] Encounter for dental examination (Primary Dx) Social History Tobacco Use Types Packs/Day Years Used Date Smoking Tobacco: Never Smokeless Tobacco: Never Social Connections Answer Date Recorded Connectedness 0 10/27/2023 Financial Resource Strain Answer Date R ecorded Financial Resource Strain 0 2022 Stress Answer Date Recorded Stress 0 12/12/2022 Physical Activity Answer Date Recorded Physical Activity 0 12/12/2022 Food Insecurity Answer Date Recorded Food 0 11/03/2023 Transportation Needs Answer Date Record ed Transportation 0 12/12/2022 Housing Stability Answer Date Recorded Housing 0 12/12/2022 Safety and Environment Answer Date Conrado rded Safety 0 12/12/2022 Utilities Answer Date Recorded Utilities 0 12/12/2022 Employment Answer Date Recorded Stress 0 10/27/2023 Comments Unknown Sex and Gender Information Value Date Recorded Sex Assigned at Not on file Legal Sex Female 10:09 AM PST Gender Identity Not on file Sexual Orientation Not on file documented as of this encounter Progress Notes * Thaddeus Wright, [facility] - 03/12/2024 3:55 PM EST Minoxidil, vit d Nkda No sarita sx Prophy, 4 bwx, Exam - Adult Subjective Serenity Barrera, 48 year old female, presents alone for Recall exam. Rn Security: No No chief complaint on file. Objective RMHx: Yes Vitals: There were no vitals filed for this visit. Assessment EOE/IOE/Oral Cancer Screen: WNL [place]: Good Fluoride exposure: toothpaste Home Care: Toothbrush 1 x per day, Floss 1 x per day Plaque: Generalized Slight Calculus: Localized Slight Bone Loss: Generalized Slight PSR: Yes Periodontal Screening OHI & Nutrition counseling provided, discussed: Proper brushing technique, Proper flossing technique, Increase flossing to once per day Occlusion: N/A. Class I R & L. Overbite WNL. Overjet WNL. TMJ: WNL Caries Risk Assessment: Auto calculated Risk Score: moderate risk Dx: Z01.20 Encounter for dental examination (primary encounter diagnosis) Dx Details (Clinical Decision Making): Plan No restorative needed Informed Consent/PARQ (Procedure, Alternatives, Risks, Questions): Discussed exam findings and treatment needs, questions answered. Patient confirms informed consent using PARQ, verbalizes understanding of exam findings and treatment plan. Dental procedures in this visit D9450 - CASE PRESENTATION SUBS DTL & EXTENSIVE TX PLN (Completed) Service provider: Thaddeus Wright RDH Billing provider: Florinda Jack DMD TX993 - ORAL CANCER SCREENING (Completed) Service provider: Thaddeus Wright RDH Billing provider: Florinda Jack DMD D1330 - ORAL HYGIENE INSTRUCTIONS (Completed) Service provider: Thaddeus Wright RDH Billing provider: Florinda Jack DMD D1310 - NUTRITIONAL COUNSELING CONTROL OF DENTAL DISEASE (Completed) Service provider: Thaddeus Wright RDH Billing provider: Florinda Jack DMD D0602 - CARIES RISK ASSESSMENT & DOC FINDING MOD RISK (Completed) Service provider: Thaddeus Wright RDH Billing provider: Florinda Jack DMD D0120 - PERIODIC ORAL EVALUATION ESTABLISHED PATIENT (Completed) Service provider: Thaddeus Wright RDH Billing provider: Florinda Jack DMD D0180 - COMP PERIODONTAL EVALUATION - NEW/EST PATIENT (Completed) Service provider: Thaddeus Wright RDH Billing provider: Florinda Jack DMD D0274 - BITEWINGS - FOUR RADIOGRAPHIC IMAGES (Completed) Service provider: Thaddeus Wright RDH Billing provider: Florinda Jack DMD D1110 - PROPHYLAXIS - ADULT (Completed) Service provider: Thaddeus Wright RDH Billing provider: Florinda Jack DMD D9993 - DENTAL CASE MANAGEMENT - MOTIVATIONAL INTV (Completed) Service provider: Thaddeus Wright RDH Billing provider: Florinda Jack DMD Referrals: No orders of the following type(s) were placed in this encounter: Referral. Rx: No orders of the defined types were placed in this encounter. Behavior: Excellent Prophy completed via ultrasonic, handscale, marshallese and floss NV: Recall Exam - 6 months Thaddeus Wright RDH documented in this encounter Miscellaneous Notes * Patient Instructions - Thaddeus Wright RDH - 03/12/2024 4:24 PM EST If you are not able to keep your appointment please call 24-48 hours before your appointment to cancel or reschedule. documented in this encounter Plan of Treatment Upcoming Encounters Date Type Department Care Team (Late st Contact Info) Description 09/11/2024 4:20 PM EDT Office Visit [facility] [address] [place] [phone] Thaddeus Wright RDH [address] [place] [address] documented as of this encounter Procedures Procedure Name Priority Date/Time Associated Diagnosis Comments ORAL CANCER SCREENING Routine 03/12/2024 3:40 PM EST Encounter for dental examination DENTAL CASE MANAGEMENT - MOTIVATIONAL INTV Routine 03/12/2024 3:40 PM EST Encounter for dental examination CARIES RISK ASSESSMENT & DOC FINDING MOD RISK Routine 03/12/2024 3:40 PM EST Encounter for dental examination CASE PRESENTATION SUBS DTL & EXTENSIVE TX PLN Routine 03/12/2024 3:40 PM EST Encounter for dental examination COMP PERIODONTAL EVALUATION - NEW/EST PATIENT Routine 03/12/2024 3:40 PM EST Encounter for dental examination ORAL HYGIENE INSTRUCTIONS Routine 03/12/2024 3:40 PM EST Encounter for dental examination NUTRITIONAL COUNSELING CONTROL OF DENTAL DISEASE Routine 03/12/2024 3:40 PM EST Encounter for dental examination PROPHYLAXIS - ADULT Routine 03/12/2024 3 :40 PM EST Encounter for dental examination BITEWINGS - FOUR RADIOGRAPHIC IMAGES Routine 03/12/2024 3:40 PM EST Encounter for dental examination PERIODIC ORAL EVALUATION ESTABLISHED PATIENT Routine 03/12/2024 3:40 PM EST Encounter for dental examination documented in this encounter Visit Diagnoses Diagnosis Encounter for dental examination- Primary Dental examination documented in this encounter
--- OUTSIDE RECORDS SUMMARY | 2024-03-28 11:14 | XMS_ITS | Clinical Summary ---
Author Organization [facility] Address [address] [place] [address] Care Team Providers Care Land Leases And Rentals Manager Name Role Phone Unavailable Primary Care Provider Unavailabl e Source Comments PLEASE NOTE, if this patient is a minor, it may be UNLAWFUL to discuss sensitive information that is contained in these records (such as FAMILY PLANNING, MENTAL HEALTH or SUBSTANCE ABUSE) with the minor patient's parent or other person without the patient's specific authorization.[facility] Allergies No known active allergies Medications No known medications Active Problems No known active problems Encounters Date Type Department Care Team Description 03/12/2024 3:40 PM EST Office Visit [facility] [address] [place] [address] Thaddeus Wright [facility] Encounter for dental examination (Primary Dx) from Last 3 Months Social History Tobacco Use Types Packs/Day Years Used Date Smoking Tobacco: Never Smokeless Tobacco: Never Tobacco Cessation:Counseling Given: Not Answered Social Connections Answer Date Recorded Connectedness 0 [...] on file Sexual Orientation Not on file Last Filed Vital Signs Vital Sign Reading Time Taken Comments Blood Pressure 150/95 02/28/2023 4:19 PM EST Pulse 73 02/28/2023 4:19 PM EST Temperature - - Respiratory Rate - - Oxygen Saturation - - Inhaled Oxygen Concentration - - Weight - - Height - - Body Mass Index - - Plan of Treatment Upcoming Encounters Date Type Department Care Team (Late st Contact Info) Description 09/11/2024 4:20 PM EDT [facility] [address] [place] [address] Thaddeus Wright, [facility] [address] [place] [address] Health Maintenance Due Date Last Done Comments Dental FMX/Pano 1975 HPV Screening 1975 Hepatitis C Screening 1975 Pap + HPV 1975 Cervical Cancer Screening [address] Colonography 2018 Colonoscopy 2018 Colorectal Cancer Screening 2018 FIT/gFOBT 2018 Fecal DNA 2018 Flexible Sigmoidoscopy 2018 Breast Cancer Screening (Mammogram) 11/17/2020 11/17/2018 Imm-DTaP/Tdap/Td (2 - Td or Tdap) 01/05/2021 011 Imm-Zoster, Recombinant (1 of 2) 08/01/2023 Yxt-MZPID-47 ( - season) 2023 Imm-Influenza (#1) 2023 11/28/2020, 1 , 11/03/2010 Alcohol and Drug Screen 02/08/2024 Depression Annual Screen 02/08/2024 Hypertension Screening (#1) 02/28/2024 Tobacco Screening 08/14/2024 08/15/2023 Dental BW 03/14/2025 03/12/2024, 07/0 09/2023, 02/09/2023 Dental Examination 03/14/2025 03/12/2024, 0 08/15/2023, 02/09/2023 Dental Perio Charting 03/14/2025 03/12/2024 , 08/15/2023, 02/09/2023 Dental Prophy 03/14/2025 03/12/2024, 07/0 09/2023, 02/09/2023 Diabetes Screening 02/23/2027 02/24/2024, 0 07/22/2023, 10/22/2022, Additional history exists Lipid Screening 02/23/2029 02/24/2024, 07/22/2023 Imm-Hepatitis B Completed 04/17/2007, 11/07, 10/14/2006 HIV Screening Completed 10/17/2020, 10/17/2020 Cervical Ablation/Cold-Knife Conization Discontinued Cervical Cryotherapy Discontinued Colposcopy Discontinued Endometrial Biopsy Discontinued Excision/Leep Discontinued HPV Genotyping Discontinued Vaginal Pap Discontinued Vulvoscopy Discontinued Procedures Procedure Name Priority Date/Time Associated Diagnosis Comments DENTAL CASE MANAGEMENT - MOTIVATIONAL INTV Routine [...] PM EST Encounter for dental examination ORAL CANCER SCREENING Routine 03/12/2024 3:40 PM EST Encounter for dental examination CASE PRESENTATION SUBS DTL & EXTENSIVE TX PLN Routine 03/12/2024 3:40 PM EST Encounter for dental examination from Last 3 Months Insurance HEALTH SAFETY NET DENTAL
--- OUTSIDE RECORDS SUMMARY | 2024-03-28 11:14 | XMS_ITS | Encounter Summary ---
Author Organization [facility] Address [address] [facility] [address] [place] [address] Care Team Providers Care Product Management Internship Name Role Phone Basilia Colon MD Primary Care Provider + Encounter Details Date Type Department Care Team (Late st Contact Info) Description 11/10/2022 Abstract [facility] [address] [place] [address] Jannet Yoder Social History Tobacco Use Types Packs/Day Years Used Date Smoking Tobacco: Never Smokeless Tobacco: Never Alcohol Use Standard Drinks/Week Comments Not Currently 0 (1 standard drink = 0.6 oz pur e alcohol) oca Depression Answer Date Recorded Patient Health Questionnaire-2 Score 0 06/16/2022 Comments Unknown Sex and Gender Information Value [...] Procedure Name Priority Date/Time Associated Diagnosis Comments PAP/HPV Routine 11/11/2020 PAP/HPV Routine 11/06/2020 documented in this encounter Results * Pap Smear (11/11/2020) Pap Negative for intraephithelial lesion or malignancy Negative for intraephithelial lesion or malignancy, Other HPV Undetected us Historical Provider HEALTH MAINTENANCE Final Result * Pap Smear (11/06/2020) Pap Negative for intraephithelial lesion or malignancy Negative for intraephithelial lesion or malignancy, Other HPV Undetected us Historical Provider HEALTH MAINTENANCE Final Result documented in this encounter Visit Diagnoses Not on filedocumented in this encounter Care Teams Product Management Internship Relationship Specialty Start Date End Date Basilia Colon MD [address] [place] [address] PCP - General Family Medicine 12/27/17 documented as of this encounter
--- OUTSIDE RECORDS SUMMARY | 2024-03-28 11:14 | XMS_ITS | Encounter Summary ---
Author Organization [facility] Address [address] [place] [address] [address] [place] [address] Care Team Providers Care Chocolate Production Machine Operator Name Role Phone Basilia Colon MD Primary Care Provider + Encounter Details Date Type Department Care Team (Late st Contact Info) Description 07/29/[address] [facility] [address] [place], [place] [phone] Basilia Colon MD [address] [place], [place] [phone] Social History Tobacco Use Types Packs/Day Years [...] on file documented as of this encounter Visit Diagnoses Not on filedocumented in this encounter Care Teams Chocolate Production Machine Operator Relationship Specialty Start Date End Date Basilia Colon MD [address] [place], [place] [phone] PCP - General Family Medicine 12/27/17 documented as of this encounter
--- OUTSIDE RECORDS SUMMARY | 2024-03-28 11:14 | XMS_ITS | Encounter Summary ---
Author Organization [employer] [facility] [employer] Address [address] [facility] [address] [place] [address] Care Team Providers Care Head Girls Golf Coach Name Role Phone Basilia Colon MD Primary Care Provider + Encounter Details Date Type Department Care Team ([facility] st Contact Info) Description 07/05/2023 Orders Only [facility] [address] [place], [place] [phone] ProviderBouchra MD Social History Tobacco Use Types Packs/Day Years Used Date Smoking Tobacco: Never Smokeless Tobacco: Never Alcohol Use Standard Drinks/Week Comments Not Currently 0 (1 standard drink = 0.6 oz pur e alcohol) oca Housing Stability Answer Date Recorded What is your housing situation today? I have zamzam benjy 06/22/[address] you li [...] Procedure Name Priority Date/Time Associated Diagnosis Comments HM COLONOSCOPY Routine 07/08/2021 9:47 AM EDT documented in this encounter Results * Hm Colonoscopy (07/08/2021 9:47 AM EDT) us Historical Provider HEALTH MAINTENANCE Final Result documented in this encounter Visit Diagnoses Not on filedocumented in this encounter Care Teams Head Girls Golf Coach Relationship Specialty Start Date End Date Basilia Colon MD [address] [place] [phone] PCP - General Family Medicine 12/27/17 documented as of this encounter
== END 2024-03-28 11:09 | disposition home or self-care (01) ==
LOC: HO.HWS 10:38
PROVIDERS: PCP Internal Medicine; Visit Provider Obstetrics & Gynecology
DX: D25.9 Leiomyoma of uterus, unspecified (principal)
CPT/HCPCS: 99213

== ENCOUNTER → 2024-03-28 10:38 | Outpatient (BNVA) | payer OTHER, SELFPAY | PROVIDERS: PCP Internal Medicine; Visit Provider Obstetrics & Gynecology | DX: D25.9 Leiomyoma of uterus, unspecified (principal) | CPT/HCPCS: 99212 ==

== ENCOUNTER 2024-04-16 14:12 | Outpatient (AMB) | payer OTHER, SELFPAY ==
--- NOTE | 2024-04-16 14:21 | A.OFFVIS_ITS ---
VS Expanded 04/16/24 14:29 BP 128/85 Blood Pressure Location Rt brachial Blood Pressure Position Sitting Pulse 69 Pulse Source Pulse Oximeter Temp 98.5 F Temperature Source Temporal Artery Scan Pulse Oximetry 99 Oxygen Delivery Method Room Air Height 4 ft 11 in Weight 134 lb 12.8 oz BMI 27.2 Body Fat % 28.0 Body Fat Mass 37.6 Fat Free Mass 97.0 Visceral Fat Rating 6.0 Body Water % 51.2 Body Water Mass 69.0 Muscle Mass/Score 92.2 Basal Metabolic Rate/Score 1,303 Intake Visit Reasons: (OV) PO LSG 11/02/22 Instructional Systems Design Consultant Required: Yes Instructional Systems Design Consultant Services: Instructional Systems Design Consultant Present Instructional Systems Design Consultant Name: [id number] Allergies No Known Allergies Allergy (Verified 04/16/24 14:32) HPI Comments Details: This?a?48?yo female who is s/p LSG without hiatal hernia repair on?11/04/22. Presents for 1 year 6 month post op visit. Weight today is 134.8 pounds, with a BMI of 27.2. There has been a 77.6 pound weight loss,(initial weight 212.4 pounds) since starting the program on 07/15/22 reflecting a 36.8% total body weight loss and a weight loss of 52.6 pounds since surgery (operative weight 187.4 pounds) reflecting a 28.5% TBWL since surgery. No complaints of nausea, emesis, abdominal pain or reflux. Reports that things are going well. Not taking a multivit She is doing well overall. Complains of intermittent rash to under the abdominal pannus 1-2 times per month. She has pain, odor and itching. This has required use of antifungal cream. She has used the antifungal cream with some resolution of the rash however it recurs. This rash has been very uncomfortable for her, this has required additional hygiene including showering twice daily. She also uses extra clothing to act as a barrier between the skin folds She also is having rash in the axilla due to excess skin of her arms. The rash of her arms is treated the same way and behaves the same way. Present meal plan includes: Orgain shake, 2 scoops, 9-11, 1-3 in 10 oz almond milk Meal 5 pm 4 forks protein and 4 forks vegetables 48 oz water? Exercise routine includes: treadmill at home Any post op complications: none CAYETANO: never DM: never HTN: never Hyperlipidemia: never GERD:?0-5 scale ??0 = no symptoms ??1 = symptoms noticeable but not bothersome 2 =symptoms bothersome but not daily ? 3 = symptoms bothersome and daily 4 = symptoms affect daily activities 5 = symptoms are incapacitating, unable to do daily activities ? How bad is the heartburn: 0 ? Heartburn while lying down: 0 ? Heartburn when standing up: 0 ? Heartburn after meals: 0 ? Does heartburn change your diet: 0 ? Does heartburn wake you up from sleep: 0 ? Do you have difficulty swallowin ? Do you have pain with swallowin ? If you take medicine for your reflux, does this affect your daily life: 0 Satisfaction with present condition - satisfied or not satisfied: satisfied [facility] Medical History Well woman exam BMI 39.0-39.9,adult Morbid obesity Right shoulder injury Left lateral epicondylitis Right shoulder tendonitis Carpal tunnel syndrome on both sides Normal vulvar exam Hemorrhoids Diverticulosis Tubular adenoma Encounter for screening colonoscopy Postmenopausal bleeding Nephrolithiasis GERD (gastroesophageal reflux disease) Anxiety Depression BENITO III (cervical intraepithelial neoplasia grade III) with severe dysplasia Carpal tunnel syndrome Acute arthritis Seasonal allergic rhinitis Surgical History S/P laparoscopic sleeve gastrectomy Hx of colonoscopy Tubal ligation status Family History Mother HTN (hypertension) A-fib Arthritis Father Diabetes HTN (hypertension) Sister Lupus Social History Household Members: Spouse Housing: House Are you a primary care connector to a significant other at home: No Do you presently have visiting nurse or other home services: No Alcohol intake: current Alcohol intake frequency: does not drink Patient Tobacco Use Status: Never used Tobacco Substance Use Type: Marijuana service: No Current occupational status: employed 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 Sexual orientation: Straight/Heterosexual Gender identity: Female Female Reproductive History Menstrual Age of Menarche: 10 Physical Exam Vital Signs: Last Vital Signs Temp 98.5 F 04/16/24 14:29 Pulse 69 04/16/24 14:29 BP 128/85 03/10/25 14:29 Pulse Ox 99 04/16/24 14:29 Oxygen Delivery Method Room Air 04/16/24 14:29 BMI result Body Mass Index 27.2 Const General: healthy appearing and no acute distress Resp Effort & Inspection: normal respiratory effort Auscultation: clear to auscultation bilaterally Cardio Rate: regular rate Rhythm: regular rhythm GI Auscultation: normal bowel sounds Skin Other: Pannus grade 2 with evidence of skin irritation, , mild maceration and excoriation to the groin and under the abdominal pannus. No active rash to the axilla Extrem General: Yes normal to inspection Assessment & Plan Assessment & Plan (1) S/P laparoscopic sleeve gastrectomy: Code(s): Z98.84 - Bariatric surgery status Category: Surgical Plan: Recommend continue current meal plan. Exercise as she is able given recurrent abdominal and axillary rash. Continue communication weekly by text with her weights and with any questions or concerns. Labs from February show low vitamin- D however this was supplemented. She also continues with oral multivitamin daily (2) Excess skin: Code(s): L98.7 - Excessive and redundant skin and subcutaneous tissue Category: Medical Plan: Given patient's excessive weight loss, greater than 75 lb or 36.8% total body weight loss she has developed excess skin of the abdomen and arms. As a result of the excess skin, she has had recurrent dermatomycosis. This has affected her activities of daily living by way of increased hygiene and pain and odor. We have prescribed antifungal topical medications. We will add systemic antibiotics in an attempt to eradicate the recurrence of her rash. We will arrange for follow-up appointment in approximately 3 weeks. Should she have continued recurrent rash, we will submit to her insurance company for approval of medically necessary skin removal surgery of her abdomen and arms. Medications: New doxycycline monohydrate 100 mg PO BID PRN 14 tabs 1RF skin rash
[2024-04-16 14:29] VITALS: BP 128/85; PULSE 69; TEMP 36.9; O2SAT 99; BMI 27.2
--- OUTSIDE RECORDS SUMMARY | 2024-04-16 16:14 | XMS_ITS | Clinical Summary ---
Author Organization [facility] ity Address [address] [place] [address] Care Team Providers Care Compressor Station Operator Name Role Phone Unavailable Primary Care Provider [...] Vaccines (1 of 2) 08/01/2023 COVID-19 Vaccine (1 - 2023-2 5 season) 2023 Influenza Vaccine [...]
--- OUTSIDE RECORDS SUMMARY | 2024-04-16 16:14 | XMS_ITS | Encounter Summary ---
Author Organization [employer] [facility] Address [address] [place] [address] [address] [place] [address] Care Team Providers Care Bander Operator Name Role Phone Basilia Colon MD Primary Care Provider + Encounter Details Date Type Department Care Team (Late Contact Info) Description 07/29/2022 Abstract [facility] [address] [place] [address] [phone] Basilia Colon MD [address] [place] [address] [phone] Social History Tobacco Use Types Packs/Day Years [...] as of this encounter Plan of Treatment Upcoming Encounters Date Type Department Care Team (Late Contact Info) Description 06/22/2024 11:45 AM EDT Office Visit [facility] [address] [place] [address] [phone] Basilia Colon MD [address] [place] [address] [phone] documented as of this encounter Visit Diagnoses Not on filedocumented in this encounter Care Teams Bander Operator Relationship Specialty Start Date End Date Basilia Colon MD [address] [place] [id number] PCP - General Family Medicine 12/27/17 documented as of this encounter
--- OUTSIDE RECORDS SUMMARY | 2024-04-16 16:14 | XMS_ITS | Clinical Summary ---
Author Organization [employer] Address [address] [place] [address] 7[address] [place] [address] Care Team Providers Care Rac Specialist Name Role Phone Basilia Colon MD Primary Care Provider + Allergies No known active allergies Medications tiZANidine (Zanaflex) 4 MG capsuleIndicati ons:Acute pain of right shoulder Take 1 capsule (4 mg) by mouth 3 times daily. 90 capsule 1 03/09/2022 Active ergocalciferol (Vitamin D2) 1.25 MG (50293 UT) capsule TAKE 1 CAPSULE BY MOUTH [...] (12/12/2023 1:26 PM EST): On 10/[address] 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 obesity clinic F/u in 6 mos Morbid obesity 09/03/2011 12/12/2023 Overview (12/12/2023): Sp Laparoscopic sleeve gastrectomy on 11/04/[address] [facility] Assessment & Plan (06/16/2022 11:20 AM EDT): Discussed re weight reduction options including exercise, life style modifications, diet, referral to gis specialist. Discussed re lower calorie intake, increase dietary fiber I gave her information about weight management program for baritric surgery Encounters Date Type Department Care Team Description 03/29/2024 Telephone [facility] MEDICINE [address] [place] [address] Basilia Colon MD May recall 02/24/2024 Orders Only GENERIC EXTERNAL DATA DEPARTMENT Provider, Generic External Data from Last 3 Months Immunizations Name Administration [...] 12/12/2023 1:05 PM EST Plan of Treatment Upcoming Encounters Date Type Department Care Team (Late st Contact Info) Description 06/22/2024 11:45 AM EDT Office Visit [facility] MEDICINE [address] [place] [phone] Basilia Colon MD [address] [place] [address] Health Maintenance Due Date Last Done Comments CT Colonography 1975 FIT DNA/Cologuard 1975 FIT 1975 FOBT 1975 Sigmoidoscopy 1975 Family Planning (PISQ) 1988 Hepatitis C Screening 08/01/1991 DTaP/Tdap/Td Vaccines (2 - Td or Tdap) 01/05/2021 01/05/2011 Pneumococcal Vaccine: 50+ Years (1 of 1 - PCV) 08/01/2023 Zoster Vaccines (1 of 2) 08/01/2023 COVID-19 Vaccine (3 - 2024-25 season) 2023 11/07/2020, 10/17/2020 Influenza Vaccine (#1) 2023 , 11/07/2020, 11/03/2010 SDOH Screening 06/21/2024 06/22/2023 Depression Screening 06/30/2024 07/01/2023, 07/01/19 Tobacco Screening 06/30/2024 07/01/2023 Mammogram 07/12/2024 07/13/2023, [...] AUTO DIFFERENTIAL Routine 02/24/2024 8:29 AM EST BI MAMMOGRAM SCREENING TOMOSYNTHESIS BILATERAL [...] Vitamin D 25-OH Total 21.2(L) >30 ng/mL [facility] Comment:Health Based Referen ce Values*< 20 ng/mL Hihjwotud25-51 ng/mL Insufficient> 30 ng/mL Sufficient*Sondra DOWNING. N [...] Provider LAB BLOOD ORDERAB LES Final Result [facility] [address] [place] [phone] * Vitamin B12 (Cobalamin) and Folate Panel, Serum (02/24/2024 8:29 AM EST) Vitamin B12 458 200 - 900 pg/mL [facility] Comment:NORMAL 200-900 PG/ML INDETERMINATE 160-199 PG/ML DEFICIENT < 160 PG/ML Folate 13.4 > or = 4.0 ng/mL [facility] Comment:Reference Values:> o r = 4.0 ng/mL< 4.0 ng/mL suggests folate deficiency Methotrexate, aminopterin and folinic acid(leucovorin) are chemotherapeutic agents whose molecularstructures are similar to folate; therefore, the Architectfolate assay cannot be used for patients using these drugs. 02/24/2024 8:29 AM EST 02/24/2024 8:29 AM EST us Generic External Data Provider LAB BLOOD ORDERAB LES Final Result Performing Organization Address [facility] Co de Phone Number [facility] [address] [place] [phone] * TSH with Reflex to Free T4 (02/24/2024 8:29 AM EST) Pathologist [facility] TSH reflex Free T4 1.81 0.32 - 4.0 uIU/mL [facility] 02/24/2024 8:29 AM EST 02/24/2024 8:29 AM EST us Generic External Data Provider LAB BLOOD ORDERAB LES Final Result Performing Organization Address [facility] Phone Number [facility] [address] [place] [phone] * (ABNORMAL) CBC auto differential (02/24/2024 8:29 AM EST) White Blood Count 6.0 4.8 - 10.8 X10*3/uL [facility] Red Blood Count 4.62 4.20 - 5.50 X10*6/uL [facility] Hemoglobin 13.9 12.0 - 16.0 g/dl [facility] Hematocrit 40.7 37.0 - 47.0 % [facility] Mean Corpuscular Volume 88.1 80.0 - 98.0 fL [facility] Mean Corpuscular Hemoglobin 30.1 27.0 - 33.0 pg [facility] Mean Corpuscular HGB Conc 34.2 31.0 - 35.0 g/dl [facility] Red Cell Distribution Width 12.4 11.0 - 16.0 % [facility] Platelet Count 227 160 - 400 X10*3/uL [facility] Mean Platelet Volume 10.5 9.4 - 12.3 fL [facility] Neutrophils Percent Auto 45.9 45 - 73 % [facility] Imm Gran Pct Auto 0.2 0.0 - 0.4 % [facility] Lymphocytes Percent Auto 42.5(H) 20 - 40 % [facility] Monocytes Percent Auto 9.4 2 - 11 % [facility] Eosinophils Percent Auto 1.5 0 - 4 % [facility] Basophils Percent Auto 0.5 0 - 2 % [facility] NRBC Pct Auto 0.0 0.0 - 0.2 /100WBC [facility] Neutrophils Absolute Auto 2.8 2.0 - 8.3 x10*3/uL [facility] Imm Gran Abs Auto 0.01 0.00 - 0.03 X10*3/uL [facility] Lymphocytes Absolute Auto 2.6 1.2 - 4.9 X10*3/uL [facility] Monocytes Absolute Auto 0.6 0.1 - 1.2 X10*3/uL [facility] Eosinophils Absolute Auto 0.1 0.0 - 0.4 X10*3/uL [facility] Basophils Absolute Auto 0.0 0.0 - 0.2 X10*3/uL [facility] NRBC Abs Auto 0.000 0.0 - 0.012 X10*3/uL [facility] 02/24/2024 8:29 AM EST 02/24/2024 8:29 AM EST us Generic External Data Provider LAB BLOOD ORDERAB LES Final Result [facility] [address] [place] [phone] * Iron And Total Iron Binding Capacity (02/24/2024 8:29 AM EST) Iron 109 30 - 160 mcg/dL [facility] Total Iron Binding Capacity 255 228 - 428 mcg/dL [facility] Percent Iron Saturation 43 15 - 50 % [facility] Unsaturated Iron Binding 146 ug/dL [facility] 02/24/2024 8:29 AM EST 02/24/2024 8:29 AM EST Generic External Data Provider LAB BLOOD ORDERAB LES Final Result Performing Organization Address [facility] de Phone Number [facility] [address] [place] [phone] * Insulin (02/24/2024 8:29 AM EST) Insulin 4 2 - 29 uU/mL [facility] Comment:This test was perfor med [...] ORDERAB LES Final Result Performing Organization Address [facility] de Phone Number [facility] [address] [place] [phone] * Zinc (02/24/2024 8:29 AM EST) Zinc 73 60 - 130 mcg/dL [facility] Comment:This test was develo ped and its analytical performancecharacteristics have been determined by [employer] [place], [place]. It hasnot been cleared or approved by the U.S. Food and DrugAdministration. This assay has been validated pursuantto the CLIA regulations and is used for clinicalpurposes.THIS TEST WAS PERFORMED AT:[facility] [place] [address]IMKQEBATRICIA PETERSEN MD,PHD 02/24/2024 8:29 AM EST 02/24/2024 8:29 AM EST us Generic External Data Provider LAB BLOOD ORDERAB LES Final Result Performing Organization Address [facility] Co de Phone Number [facility] [address] [place] [phone] * Vitamin A (02/24/2024 8:29 AM EST) Vitamin A (Retinol) 44 38 - 98 mcg/dL [facility] Comment:Vitamin supplementat ion within 24 hours prior toblood draw may affect the accuracy of the results.This test was developed and its analytical performancecharacteristics have been determined by [employer] [place], [place]. It hasnot been cleared or approved by the U.S. Food and DrugAdministration. This assay has been validated pursuantto the CLIA regulations and is used for clinicalpurposes.THIS TEST WAS PERFORMED AT:[facility] [place] [address]OYQNVIWTRICIA PETERSEN MD,PHD 02/24/2024 8:29 AM EST 02/24/2024 8:29 AM EST us Generic External Data Provider LAB BLOOD ORDERAB LES Final Result Performing Organization Address [facility] de Phone Number [facility] [address] [place] [phone] * C-reactive Protein (02/24/2024 8:29 AM EST) C Reactive Protein 0.11 < or = 0.50 mg/dL [facility] 02/24/2024 8:29 AM EST 02/24/2024 8:29 AM EST us Generic External Data Provider LAB BLOOD ORDERAB LES Final Result Performing Organization Address [facility] Co de Phone Number [facility] [address] [place] [phone] * Vitamin B1 (02/24/2024 8:29 AM EST) Vitamin B1 12 8 - 30 nmol/L [facility] Comment:Vitamin supplementat ion within 24 hours prior toblood draw may affect the accuracy of the results.This test was developed and its analytical performancecharacteristics have been determined by [employer] [place], [place]. It hasnot been cleared or approved by the U.S. Food and DrugAdministration. This assay has been validated pursuantto the CLIA regulations and is used for clinicalpurposes.THIS TEST WAS PERFORMED AT:[facility] [place] [address]OOFHMADTRICIA PETERSEN MD,PHD 02/24/2024 8:29 AM EST 02/24/2024 8:29 AM EST us Generic External Data Provider LAB BLOOD ORDERAB LES Final Result [facility] [address] [place] [phone] * Hemoglobin A1c (02/24/2024 8:29 AM EST) Hemoglobin A1c 4.8 <6.0 % [facility] Comment:Hemoglobin A1C Refer ence Range Adults: 4.8 - 6.0 % Non diabetic: < 6.0 % Goal: < 7.0 %Additional Action Suggested: > 8.0 %Note: Hemoglobin A1c results are invalid for patients with abnormal amounts of HbF. Blood transfusions may impact the HbA1c concentration in the patient sample. Estimated Average Glucose 91 mg/dL [facility] Comment:eAG = Estimated ave rage glucose which is %A1C expressed asaverage glucose, using the formula of the E4Z-HmsktehUvnpkqk Glucose study (ADAG), Diabetes Care, Vol.31,#8,Sep. 2007 02/24/2024 8:29 AM EST 02/24/2024 8:29 AM EST us Generic External Data Provider LAB BLOOD ORDERAB LES Final Result Performing Organization Address City/[facility]/ZIP Co de Phone Number [facility] [address] [place] [phone] * Ferritin (02/24/2024 8:29 AM EST) Ferritin 116 10 - 250 ng/mL [facility] 02/24/2024 8:29 AM EST 02/24/2024 8:29 AM EST us Generic External Data Provider LAB BLOOD ORDERAB LES Final Result Performing Organization Address [facility] Co de Phone Number [facility] [address] [place] [phone] * (ABNORMAL) Lipid Panel, Standard (02/24/2024 8:29 AM EST) Triglycerides 61 <150 mg/dL [facility] Comment:Desirable Triglyceri de: less than 150 mg/dLBorderline High Triglyceride 150-199 mg/dLHigh Triglyceride: 200-499 mg/dLVery High Triglyceride: greater than or equal to 5OO mg/dL Cholesterol 187 <200 mg/dL [facility] Comment:Desirable Cholestero l: less than 200 mg/dLBorderline High Cholesterol: 200-239 mg/dLHigh Cholesterol: greater than 239 mg/dL LDL Cholesterol Calculated 110(H) <100 mg/dL [facility] Comment:Desirable LDL: less than 100 mg/dLNear Optimal/Above Optimal LDL: 110- 129 mg/dLBorderline High LDL: 130-159 mg/dLHigh LDL: 160-189 mg/dLVery High LDL: greater than or equal to 190 mg/dL HDL Cholesterol 65 >40 mg/dL [facility] Comment:Desirable HDL: great er than 40 mg/dL Note: This HDL assay may give artificially low results in patients with liver disease. 02/24/2024 8:29 AM EST 02/24/2024 8:29 AM EST us Generic External Data Provider LAB BLOOD ORDERAB LES Final Result Performing Organization Address [facility] de Phone Number [facility] [address] [place] [phone] * (ABNORMAL) Basic Metabolic Panel (02/24/2024 8:29 AM EST) Sodium 142 135 - 145 mmol/L [facility] Potassium 4.0 3.3 - 5.1 mmol/L [facility] Chloride 108 96 - 108 mmol/L [facility] Carbon Dioxide 31(H) 22 - 29 mmol/L [facility] Anion Gap 7(L) 12 - 20 [facility] Urea Nitrogen (BUN) 15 9 - 16 mg/dL [facility] Creatinine, Serum 0.68 0.5 - 1.4 mg/dL [facility] Estimated Glomerular Filt Rate >60 [facility] Comment:Chronic Kidney Disea se: Estimated GFR < 60 mL/min/1.93w8Pcmfpn Kidney Disease: Estimated GFR < 15 mL/min/1.73m2 Glucose 88 60 - 115 mg/dL [facility] Calcium 8.9 8.4 - 10.2 mg/dL [facility] 02/24/2024 8:29 AM EST 02/24/2024 8:29 AM EST us Generic External Data Provider LAB BLOOD ORDERAB LES Final Result Performing Organization Address [facility] Co de Phone Number [facility] [address] [place] [phone] * BI Mammogram Screening Tomosynthesis Bilateral (07/13/2023 12:03 PM EDT) Anatomical Region Laterality Modality Breast Bilateral Mammography 07/13/2023 12:0 3 PM EDT Narrative 08/09/2023 8:09 AM EDT ? [facility] ? [address] ?[place] [address] ? Mammography Report ? Signed ? Patient: Barrera Munoz,Serenity M ?MR#: [id number] ?? [id number] ? : 1975 ?Acct:[id number] ? Age/Sex: 47 / F ?ADM Date: 06/05/24 ? Loc: HO.MAMMO ? Attending Dr: Basilia Colon MD ? Ordering Physician: Basilia Colon MD ?Results: 1Ne ?? gative ? Date of Service: 07/13/23 ?Follow Up: 1 Year From Orig ?? inal Mammogram ? Procedure(s): MM tomosynthesis screening BI ?? Accession Number(s): [id number] ? cc: Basilia Colon MD ? EXAMINATION: ?? MM SCREENING DIGITAL BREAST TOMOSYNTHESIS, BILATERAL ? CLINICAL INFORMATION: ? Screening. Asymptomatic. ? COMPARISON: ?? Mammography: This study is compared with prior exams dating back to ?? 2019. ? TECHNIQUE: ?? Digital breast tomosynthesis is [...] by Belle Hernandez MD in OV> ? 08/09/23804 ? DD/ 1203 ? TD/TT: ? Perennial House Manager: ? Procedure Note Donotterryter, Image - 08/09/2023 [facility] [address] [place] [address] Mammography Report Signed Patient: Serenity Gómez MMR#: [id number] : 1975Acct:[id number] Age/Sex: 47 / FADM Date: 07/13/23 Loc: HO.MAMMO Attending Dr: Basilia Colon MD Ordering Physician: Basilia Colon MDResults: 1Ne gative Date of Service: 07/13/23Follow Up: 1 Year From Orig inal Mammogram Procedure(s): MM tomosynthesis screening BI Accession Number(s): [id number] cc: Basilia Colon MD EXAMINATION: MM SCREENING [...] in OV> 08/09/23 0805 DD/ 1203 TD/TT: Perennial House Manager: Basilia Colon MD IMG BI PROCEDURES Edited Result - Final * Pap Smear (12/29/2022 2:49 PM EST) 12/29/2022 2:49 PM EST 01/03/2023 7:00 AM EST [facility] - 01/13/2023 4:11 PM EST ----- ------- Name: Serenity Gómez ? Age/Sex: 47/F ? : 1975 Unit#: [id number] ?? Attend Dr: Chalino Benton MD ?Re12/29/22 ?Status: DEP REF ? Location: HO.LNP ?Disch: ? ----- ------- SPEC : [id number] ?RECD: 01/03/23 ? STATUS: ??SOUT ? REQ NUM: [id number] ? AN: 12/29/22-1448 ? SUBM DR: Chalino Benton MD ? ENTERED: ??01/04/23 ?SP TYPE: Pap Smr ?OTHR DR: Basilia [...] 66, 68) ?? HPV testing performed by Lique[place], [place], [place]. ??See reference laboratory ?? portion of the EMR for entire report. ?Clinical Information LMP: Postmenopausal Previous PAP test: 2021, ASCUS, HPV+ ? Material Received ?? ThinPrep-Cervical Copies To: ?? Basilia Colon MD ?? [address] ?? [place] [address] ? Chalino Benton MD ?? [address] [place] [address] [address] ?? [place] [address] ?? [phone] ----- ------- Signed (signature on file) MANUEL Uriarte ([facility]) 01/13/23 1611 ? ----- ------- ? END OF REPORT ? us Generic External Data Provider LAB CYTOLOGY NATHALIA GIBBONS Final Result [facility] [address] [place] [address] [place] [phone] * HPV E6/E7 RFLX OLGA 16 18/45 (11/11/2021 3:37 PM EDT) HPV mRNA E6/E7 rflx Not Detected Not Detected [facility] Comment: Methodology: Agricultural Research Technician-Mediated Amplification This assay detects E6/E7 viral messenger RNA (mRNA) from 14 high-risk HPV types (16,18,31,33,35,39,45,51,52,56,58,59,66,68). Cervical sources are required for HPV testing. If a vaginal source from a patient who has had a total hysterectomy with removal of cervix was submitted, please contact the testing laboratory for alternative testing options. For additional information, please refer to http://[employer]Sav[employer].com.NetSpend/faq/AVZ332e7 (This link if provided for information/ educational purposes only.) THIS TEST WAS PERFORMED AT: [facility] [address] [place] [address] [address] [facility],[address] [place], [place] ??[phone] ELIZABETH ANDRES MD 11/11/2021 3:37 PM EDT Chalino Benton MD HISTORICAL/NON ORDERABLE LABS Fi nal Result Performing Organization Address [facility]/State/ZIP Co de Phone Number [facility] * Hm Colonoscopy (07/08/2021 9:47 AM EDT) Historical Provider HEALTH MAINTENANCE Final Result * HIV 1/2 ANTIGEN/ANTIBODY,FOURTH GENERATION W/RFL (10/17/2020 1:05 PM EDT) [facility] HIV-1/2 ANTIGEN AND ANTIBODIES, 4TH GENERATION W/ [...] ? For additional information please refer to http://education.NetSpend/faq/SUM941 (This link is being provided for informational/ educational purposes only.) ? The performance of this assay has not been clinically validated in patients less than 2 years old. ?? 10/17/2020 1:05 PM EDT Basilia Colon MD LAB BLOOD ORDERABLES Fin al Result [facility] [address] from Last 3 Months or Most Recently Relevant to Health Maintenance Insurance [facility] [facility] Care Teams Rac Specialist Relationship Specialty Start Date End Date Basilia Colon MD [address] [place] [phone] PCP - General Family Medicine 12/27/17
--- OUTSIDE RECORDS SUMMARY | 2024-04-16 16:14 | XMS_ITS | Encounter Summary ---
Author Organization [employer] Address [address] [facility] 7t [place] [address] Care Team Providers Care Night Manager Name Role Phone Basilia Colon MD Primary Care Provider + Reason for Visit * Reason Onset Date Comments May recall 03/29/2024 Encounter Details Date Type Department Care Team ([facility] Contact Info) Description 03/29/2024 Telephone [facility] [address] [place], [place] [phone] Basilia Colon MD [address] [place], [place] [phone] May recall Social History Tobacco Use Types Packs/Day Years [...] AM EDT documented as of this encounter Miscellaneous Notes * Telephone Encounter - Denise Rodriguez MA - 03/29/2024 2:48 PM EST Telephone call to patient to schedule the following recall: Visit type: Follow up Appointment notes: fu bp/RA Patient agree to appointment on 06/22/24 at 11:45 AM with Isaiah. Pt requested phone number for insurance enrollment. Provided pt with phone number. documented in this encounter Plan of Treatment Upcoming Encounters Date Type Department Care Team (Late st Contact Info) Description 06/22/2024 11:45 AM EDT Office Visit [facility] [address] [place] [address] Basilia Colon MD [address] [place] [address] documented as of this encounter Visit Diagnoses Not on filedocumented in this encounter Care Teams Night Manager Relationship Specialty Start Date End Date Basilia Colon MD [address] [place] [phone] PCP - General Family Medicine 12/27/17 documented as of this encounter
--- OUTSIDE RECORDS SUMMARY | 2024-04-16 16:15 | XMS_ITS | Clinical Summary ---
Author Organization [facility] Address [address] [place] [address] Care Team Providers Care Therapist Physical Name Role Phone Unavailable Primary Care Provider [...] Description 03/12/2024 3:40 PM EST Office Visit [facility] [address] [place] [phone] Thaddeus Wright [facility] Encounter for dental examination (Primary Dx) from [...] 4:20 PM EDT Office Visit [facility] [address] [place] [phone] Thaddeus Wright, [facility] [address] [place] [address] Health Maintenance Due Date Last Done Comments [...] 011 Imm-Zoster, Recombinant (1 of 2) 08/01/2023 [id number] ( - season) 2023 Imm-Influenza (#1) 2023 [...]
--- OUTSIDE RECORDS SUMMARY | 2024-04-16 16:15 | XMS_ITS | Encounter Summary ---
Author Organization [facility] Address [address] [place] [address] 7t [place] [address] Care Team Providers Care Physician Non Invasive Cardiologist Name Role Phone Basilia Colon MD Primary Care Provider + Encounter Details Date Type Department Care Team (Late Contact Info) Description 11/10/2022 Abstract [facility] [address] [place] [phone] Jannet Yoder Social History Tobacco Use Types [...] Description 06/22/2024 11:45 AM EDT Office Visit [facility] [address] [place] [address] [phone] Basilia Colon MD [address] [place], [place] [phone] documented as of this encounter Procedures Procedure Name Priority Date/Time Associated Diagnosis Comments PAP/HPV Routine 11/11/2020 PAP/HPV Routine 11/06/2020 documented in this encounter Results * Pap Smear (11/11/2020) Pap Negative for intraephithelial lesion or malignancy Negative for intraephithelial lesion or malignancy, Other HPV Undetected Historical Provider HEALTH MAINTENANCE Final Result * Pap Smear (11/06/2020) Pap Negative for intraephithelial lesion or malignancy Negative for intraephithelial lesion or malignancy, Other HPV Undetected Historical Provider HEALTH MAINTENANCE Final Result documented in this encounter Visit Diagnoses Not on filedocumented in this encounter Care Teams Physician Non Invasive Cardiologist Relationship Specialty Start Date End Date Basilia Colon MD [address] [place] [phone] PCP - General Family Medicine 12/27/17 documented as of this encounter
--- OUTSIDE RECORDS SUMMARY | 2024-04-16 16:15 | XMS_ITS | Encounter Summary ---
Author Organization [employer] Address [address] [facility] [address] [place] [address] Care Team Providers Care Commodities Clerk Name Role Phone Basilia Colon MD Primary Care Provider + Encounter Details Date Type Department Care Team ([facility] st Contact Info) Description 07/05/2023 Orders Only [facility] [address] [place], [place] [phone] ProviderBouchra MD Social History Tobacco Use Types [...] Description 06/22/2024 11:45 AM EDT Office Visit [facility] [address] [place] [address] Basilia Colon MD [address] [place] [address] documented as of this encounter Procedures Procedure Name Priority Date/Time Associated Diagnosis Comments HM COLONOSCOPY Routine 07/08/2021 9:47 AM EDT documented in this encounter Results * Hm Colonoscopy (07/08/2021 9:47 AM EDT) Historical Provider [facility] Final Result documented in this encounter Visit Diagnoses Not on filedocumented in this encounter Care Teams Commodities Clerk Relationship Specialty Start Date End Date Basilia Colon MD [address] [place] [id number] PCP - General Family Medicine 12/27/17 documented as of this encounter
== END 2024-04-16 15:06 | disposition home or self-care (01) ==
PROVIDERS: PCP Internal Medicine; Visit Provider Physician Assistant Surgical
DX: L98.7 Excessive and redundant skin and subcutaneous tissue (principal); Z98.84 Bariatric surgery status
CPT/HCPCS: 99214; G2211

== ENCOUNTER → 2024-04-16 14:12 | Outpatient (BNVA) | payer OTHER, SELFPAY | PROVIDERS: PCP Internal Medicine; Visit Provider Physician Assistant Surgical | DX: L98.7 Excessive and redundant skin and subcutaneous tissue (principal); Z98.84 Bariatric surgery status | CPT/HCPCS: 99212 ==

== ENCOUNTER 2024-05-03 15:05 | Outpatient (AMB) | payer OTHER, SELFPAY ==
--- NOTE | 2024-05-03 15:17 | MHC.OFFVISWM ---
VS Expanded 05/03/24 15:20 BP 128/77 Blood Pressure Location Rt brachial Blood Pressure Position Sitting Pulse 87 Pulse Source Pulse Oximeter Pulse Oximetry 100 Height 4 ft 11 in Weight 136 lb 12.8 oz BMI 27.6 Body Fat % 29.7 Body Fat Mass 40.6 Fat Free Mass 96.2 Visceral Fat Rating 0 Body Water % 50.0 Body Water Mass 68.4 Muscle Mass/Score 91.2 Basal Metabolic Rate/Score 1,297 Intake Visit Reasons: (OV) PO LSG 11/02/22 Veterinary Practice Manager Services: Veterinary Practice Manager Offered & Declined Allergies No Known Allergies Allergy (Verified 04/16/24 14:32) Medication List - Last Reconciled 05/03/24 by TIFFANY Fox cholecalciferol (vitamin D3) 125 mcg PO DAILY clotrimazole 1% (Antifungal (clotrimazole)) 1 appl topical BID doxycycline monohydrate 100 mg PO BID PRN minoxidil mg PO zdyrhlikznvx-ymm-wjfn-FA-vit K 45 mg iron- 800 mcg-120 mcg (Bariatric Multivitamins) caps PO sennosides (senna) 17.2 mg (2 x 8.6 mg) PO BEDTIME PRN HPI Comments Details: This?a?48?yo female who is s/p LSG without hiatal hernia repair on?11/04/22. Presents for 1 year 6 month post op visit. Weight today is 134.8 pounds, with a BMI of 27.2. There has been a 77.6 pound weight loss,(initial weight 212.4 pounds) since starting the program on 07/15/22 reflecting a 36.8% total body weight loss and a weight loss of 52.6 pounds since surgery (operative weight 187.4 pounds) reflecting a 28.5% TBWL since surgery. No complaints of nausea, emesis, abdominal pain or reflux. Reports that things are going well. Not taking a multivit She is doing well overall. Complains of intermittent rash to under the abdominal pannus 1-2 times per month. She has pain, odor and itching. This has required use of antifungal cream. She has used the antifungal cream with some resolution of the rash however it recurs. At her last visit, she was given doxycycline to be taken orally with the rash. While this was somewhat helpful, unfortunately, the rash did recur. This rash has been very uncomfortable for her, this has required additional hygiene including showering twice daily. She also uses extra clothing to act as a barrier between the skin folds She also is having rash in the axilla due to excess skin of her arms. The rash of her arms is treated the same way and behaves the same way. Present meal plan includes: Orgain shake, 2 scoops, 9-11, 1-3 in 10 oz almond milk Meal 5 pm 4 forks protein and 4 forks vegetables 48 oz water? Exercise routine includes: treadmill at home [facility] Medical History Well woman exam BMI 39.0-39.9,adult Morbid obesity Right shoulder injury Left lateral epicondylitis Right shoulder tendonitis Carpal tunnel syndrome on both sides Normal vulvar exam Hemorrhoids Diverticulosis Tubular adenoma Encounter for screening colonoscopy Postmenopausal bleeding Nephrolithiasis GERD (gastroesophageal reflux disease) Anxiety Depression BENITO III (cervical intraepithelial neoplasia grade III) with severe dysplasia Carpal tunnel syndrome Acute arthritis Seasonal allergic rhinitis Surgical History S/P laparoscopic sleeve gastrectomy Hx of colonoscopy Tubal ligation status Family History Mother HTN (hypertension) A-fib Arthritis Father Diabetes HTN (hypertension) Sister Lupus Social History Household Members: Spouse Housing: House Are you a primary care provider to a significant other at home: No Do you presently have visiting nurse or other home services: No Alcohol intake: current Alcohol intake frequency: does not drink Patient Tobacco Use Status: Never used Tobacco Substance Use Type: Marijuana service: No Current occupational status: employed 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 Excess skin of the abdomen, pannus grade 2-3. No active rash today. Assessment & Plan Assessment & Plan (1) Excess skin: Code(s): L98.7 - Excessive and redundant skin and subcutaneous tissue Category: Medical Plan: Patient with excess skin of the abdomen and arms. She has had multiple instances of rash over the last 12 months since losing the weight. She does have a positive outcome with the use of topical antifungals and systemic antibiotics however only to recur and therefore considered refractory to medical treatment. She has lost over 75 lb or 36% total body weight loss and this has caused excess skin and subsequent recurrent skin infections refractory to medical treatment. This has additionally impacted her activities of daily living requiring special clothing practices and hygiene practices. Given this, we will submit to her insurance for medically necessary skin removal surgery of her arms and abdomen.
[2024-05-03 15:20] VITALS: BP 128/77; PULSE 87; O2SAT 100; BMI 27.6
--- OUTSIDE RECORDS SUMMARY | 2024-05-03 18:48 | XMS_ITS | Encounter Summary ---
Author Organization [employer] [facility] Address [address] [place] [address] [address] [place] [address] Care Team Providers Care Meter Mechanic Name Role Phone Basilia Colon MD Primary Care Provider + Encounter Details Date Type Department Care Team (Late Contact Info) Description 07/29/2022 Abstract [facility] [address] [place] [address] [phone] Basilia Colon MD [address] [place] [address] [phone] Social History Tobacco Use Types Packs/Day Years [...] Description 06/22/2024 11:45 AM EDT Office Visit [facility] [address] [place] [address] [phone] Basilia Colon MD [address] [place] [address] [phone] documented as of this encounter Visit Diagnoses Not on filedocumented in this encounter Care Teams Meter Mechanic Relationship Specialty Start Date End Date Basilia Colon MD [address] [place] [phone] PCP - General Family Medicine 12/27/17 documented as of this encounter
--- OUTSIDE RECORDS SUMMARY | 2024-05-03 18:48 | XMS_ITS | Encounter Summary ---
Author Organization [facility] Address [address] [place] [address] 7t [place] [address] Care Team Providers Care Bench Jeweler Name Role Phone Basilia Colon MD Primary Care Provider + Encounter Details Date Type Department Care Team (Late Contact Info) Description 11/10/2022 Abstract [facility] MED[facility]INE [address] [place] [address] [phone] Jannet Yoder Social History Tobacco Use Types [...] Description 06/22/2024 11:45 AM EDT Office Visit [facility] [address] [place] [address] [phone] Basilia Colon MD [address] [place], [place] [phone] documented as of this encounter Procedures Procedure [...] on filedocumented in this encounter Care Teams Bench Jeweler Relationship Specialty Start Date End Date Basilia Colon MD [address] [place] [phone] PCP - General Family Medicine 12/27/17 documented as of this encounter
--- OUTSIDE RECORDS SUMMARY | 2024-05-03 18:48 | XMS_ITS | Encounter Summary ---
Author Organization [employer] Address [address] [facility] [address] [place] [address] Care Team Providers Care Bottler Name Role Phone Basilia Colon MD Primary Care Provider + Encounter Details Date Type Department Care Team ([facility] st Contact Info) Description 07/05/2023 Orders Only [facility] MEDICINE [address] [place], [place] [phone] ProviderBouchra MD Social History Tobacco Use Types [...] Description 06/22/2024 11:45 AM EDT Office Visit [facility] [address] [place] [address] Basilia Colon MD [address] [place] [address] documented as of this encounter Procedures Procedure Name Priority Date/Time Associated Diagnosis Comments HM COLONOSCOPY Routine 07/08/2021 9:47 AM EDT documented in this encounter Results * Hm Colonoscopy (07/08/2021 9:47 AM EDT) Historical Provider [facility] Final Result documented in this encounter Visit Diagnoses Not on filedocumented in this encounter Care Teams Bottler Relationship Specialty Start Date End Date Basilia Colon MD [address] [place] [phone] PCP - General Family Medicine 12/27/17 documented as of this encounter
--- OUTSIDE RECORDS SUMMARY | 2024-05-03 18:48 | XMS_ITS | Clinical Summary ---
Author Organization [facility] Address [address] [place] [address] Care Team Providers Care Animal Breeder Name Role Phone Unavailable Primary Care Provider [...] Description 03/12/2024 3:40 PM EST Office Visit [facility] [address] [place] [phone] Thaddeus Wright [facility] Encounter for dental examination (Primary Dx) from [...] 4:20 PM EDT Office Visit [facility] [address] [place] [address] Thaddeus Wright, [facility] [address] [place] [address] Health Maintenance Due Date Last Done Comments Anxiety Screening 1973 Dental FMX/Pano 1973 HPV Screening 1973 Hepatitis C Screening 1973 Pap + HPV 1973 Cervical Cancer Screening [address] Colonography 2018 Colonoscopy 2018 Colorectal Cancer Screening 2018 FIT/gFOBT 2018 Fecal DNA 2018 Flexible Sigmoidoscopy 2018 Breast Cancer Screening (Mammogram) 11/17/2020 11/17/2018 Imm-DTaP/Tdap/Td (2 - Td or Tdap) 01/05/2021 011 Imm-Zoster, Recombinant (1 of 2) 08/01/2023 Xft-[id number] ( season) 2023 Imm-Influenza (#1) 2023 11/28/2020, 1 [...]
--- OUTSIDE RECORDS SUMMARY | 2024-05-03 18:48 | XMS_ITS | Clinical Summary ---
Author Organization [employer] Address [address] [place] [address] 7t [place] [address] Care Team Providers Care Hse Specialist Name Role Phone Basilia Colon MD Primary Care Provider + Allergies No known active allergies Medications tiZANidine (Zanaflex) 4 MG capsuleIndicati ons:Acute pain of right shoulder Take 1 capsule (4 mg) by mouth 3 times daily. 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 Resolved Problems Problem Noted Date Diagnosed Date Resolved Date Obesity (BMI 30.0-34.9) 12/27/2022 11/0 05/2023 Assessment & Plan (12/27/2022 3:25 PM EST): Status Post bariatric surgery Significant decrease in BMI Continue Multivitamins Iron + zinc supplementation F/u [facility] obesity clinic F/u in 6 mos Morbid obesity 09/03/2011 12/12/2023 Overview (12/12/2023): Sp Laparoscopic sleeve gastrectomy on 11/04/22 at [facility] Assessment & Plan (06/16/2022 11:20 AM EDT): Discussed re weight reduction options including exercise, life style modifications, diet, referral to collateral specialist. Discussed re lower calorie intake, increase dietary fiber I gave her information about weight management program for baritric surgery Encounters Date Type Department Care Team Description 03/29/2024 Telephone [facility] [address] [place] [address] Basilia Colon MD May recall [...] Description 06/22/2024 11:45 AM EDT Office Visit [facility] MEDICINE [address] [place] [phone] Basilia Colon MD [address] [place] [address] Health Maintenance Due Date Last Done Comments [...] Vitamin D 25-OH Total 21.2(L) >30 ng/mL [facility] Comment:Health Based Referen ce Values*< 20 ng/mL Linlzxpdv86-91 ng/mL Insufficient> 30 ng/mL Sufficient*Sondra DOWNING. N [...] Provider LAB BLOOD ORDERAB LES Final Result [facility] [address] [place] [phone] * Vitamin B12 (Cobalamin) and Folate Panel, Serum (02/24/2024 8:29 AM EST) Vitamin B12 458 200 - 900 pg/mL [facility] Comment:NORMAL 200-900 PG/ML INDETERMINATE 160-199 PG/ML DEFICIENT < 160 PG/ML Folate 13.4 > or = 4.0 ng/mL [facility] Comment:Reference Values:> o r = 4.0 ng/mL< 4.0 ng/mL suggests folate deficiency Methotrexate, aminopterin and folinic acid(leucovorin) are chemotherapeutic agents whose molecularstructures are similar to folate; therefore, the Architectfolate assay cannot be used for patients using these drugs. 02/24/2024 8:29 AM EST 02/24/2024 8:29 AM EST us Generic External Data Provider LAB BLOOD ORDERAB LES Final Result Performing Organization Address [facility] Co de Phone Number [facility] [address] [place] [phone] * TSH with Reflex to Free T4 (02/24/2024 8:29 AM EST) Pathologist [facility] TSH reflex Free T4 1.81 0.32 - 4.0 uIU/mL [facility] 02/24/2024 8:29 AM EST 02/24/2024 8:29 AM EST us Generic External Data Provider LAB BLOOD ORDERAB LES Final Result Performing Organization Address [facility] Phone Number [facility] [address] [place] [phone] * (ABNORMAL) CBC auto differential (02/24/2024 8:29 AM EST) White Blood Count 6.0 4.8 - 10.8 X10*3/uL [facility] Red Blood Count 4.62 4.20 - 5.50 X10*6/uL [facility] Hemoglobin 13.9 12.0 - 16.0 g/dl [facility] Hematocrit 40.7 37.0 - 47.0 % [facility] Mean Corpuscular Volume 88.1 80.0 - 98.0 fL [facility] Mean Corpuscular Hemoglobin 30.1 27.0 - 33.0 pg [facility] Mean Corpuscular HGB Conc 34.2 31.0 - 35.0 g/dl [facility] Red Cell Distribution Width 12.4 11.0 - 16.0 % [facility] Platelet Count 227 160 - 400 X10*3/uL [facility] Mean Platelet Volume 10.5 9.4 - 12.3 fL [facility] Neutrophils Percent Auto 45.9 45 - 73 % [facility] Imm Gran Pct Auto 0.2 0.0 - 0.4 % [facility] Lymphocytes Percent Auto 42.5(H) 20 - 40 % [facility] Monocytes Percent Auto 9.4 2 - 11 % [facility] Eosinophils Percent Auto 1.5 0 - 4 % [facility] Basophils Percent Auto 0.5 0 - 2 % [facility] NRBC Pct Auto 0.0 0.0 - 0.2 /100WBC [facility] Neutrophils Absolute Auto 2.8 2.0 - 8.3 x10*3/uL [facility] Imm Gran Abs Auto 0.01 0.00 - 0.03 X10*3/uL [facility] Lymphocytes Absolute Auto 2.6 1.2 - 4.9 X10*3/uL [facility] Monocytes Absolute Auto 0.6 0.1 - 1.2 X10*3/uL [facility] Eosinophils Absolute Auto 0.1 0.0 - 0.4 X10*3/uL [facility] Basophils Absolute Auto 0.0 0.0 - 0.2 X10*3/uL [facility] NRBC Abs Auto 0.000 0.0 - 0.012 X10*3/uL [facility] 02/24/2024 8:29 AM EST 02/24/2024 8:29 AM EST us Generic External Data Provider LAB BLOOD ORDERAB LES Final Result [facility] [address] [place] [phone] * Iron And Total Iron Binding Capacity (02/24/2024 8:29 AM EST) Iron 109 30 - 160 mcg/dL [facility] Total Iron Binding Capacity 255 228 - 428 mcg/dL [facility] Percent Iron Saturation 43 15 - 50 % [facility] Unsaturated Iron Binding 146 ug/dL [facility] 02/24/2024 8:29 AM EST 02/24/2024 8:29 AM EST Generic External Data Provider LAB BLOOD ORDERAB LES Final Result Performing Organization Address [facility] de Phone Number [facility] [address] [place] [phone] * Insulin (02/24/2024 8:29 AM EST) Insulin 4 2 - 29 uU/mL [facility] Comment:This test was perfor med using [...] ORDERAB LES Final Result Performing Organization Address [facility] de Phone Number [facility] [address] [place] [phone] * Zinc (02/24/2024 8:29 AM EST) Zinc 73 60 - 130 mcg/dL [facility] Comment:This test was develo ped and its analytical performancecharacteristics have been determined by [employer] [place], [place]. It hasnot been cleared or approved by the U.S. Food and DrugAdministration. This assay has been validated pursuantto the CLIA regulations and is used for clinicalpurposes.THIS TEST WAS PERFORMED AT:[employer] [place] [address]XIIVNXOTRICIA PETERSEN MD,PHD 02/24/2024 8:29 AM EST 02/24/2024 8:29 AM EST us Generic External Data Provider LAB BLOOD ORDERAB LES Final Result Performing Organization Address [facility] Co de Phone Number [facility] [address] [place] [phone] * Vitamin A (02/24/2024 8:29 AM EST) Vitamin A (Retinol) 44 38 - 98 mcg/dL [facility] Comment:Vitamin supplementat ion within 24 hours prior toblood draw may affect the accuracy of the results.This test was developed and its analytical performancecharacteristics have been determined by [employer] [place], [place]. It hasnot been cleared or approved by the U.S. Food and DrugAdministration. This assay has been validated pursuantto the CLIA regulations and is used for clinicalpurposes.THIS TEST WAS PERFORMED AT:[employer] [place] [address]FZFRIMRTRICIA PETERSEN MD,PHD 02/24/2024 8:29 AM EST 02/24/2024 8:29 AM EST us Generic External Data Provider LAB BLOOD ORDERAB LES Final Result Performing Organization Address [facility] de Phone Number [facility] [address] [place] [phone] * C-reactive Protein (02/24/2024 8:29 AM EST) C Reactive Protein 0.11 < or = 0.50 mg/dL [facility] 02/24/2024 8:29 AM EST 02/24/2024 8:29 AM EST us Generic External Data Provider LAB BLOOD ORDERAB LES Final Result Performing Organization Address [facility] Co de Phone Number [facility] [address] [place] [phone] * Vitamin B1 (02/24/2024 8:29 AM EST) Vitamin B1 12 8 - 30 nmol/L [facility] Comment:Vitamin supplementat ion within 24 hours prior toblood draw may affect the accuracy of the results.This test was developed and its analytical performancecharacteristics have been determined by [employer] [place], [place]. It hasnot been cleared or approved by the U.S. Food and DrugAdministration. This assay has been validated pursuantto the CLIA regulations and is used for clinicalpurposes.THIS TEST WAS PERFORMED AT:[employer] [place] [address]DEOWVRGTRICIA PETERSEN MD,PHD 02/24/2024 8:29 AM EST 02/24/2024 8:29 AM EST us Generic External Data Provider LAB BLOOD ORDERAB LES Final Result [facility] [address] [place] [phone] * Hemoglobin A1c (02/24/2024 8:29 AM EST) Hemoglobin A1c 4.8 <6.0 % [facility] Comment:Hemoglobin A1C Refer ence Range Adults: 4.8 - 6.0 % Non diabetic: < 6.0 % Goal: < 7.0 %Additional Action Suggested: > 8.0 %Note: Hemoglobin A1c results are invalid for patients with abnormal amounts of HbF. Blood transfusions may impact the HbA1c concentration in the patient sample. Estimated Average Glucose 91 mg/dL [facility] Comment:eAG = Estimated ave rage glucose which is %A1C expressed asaverage glucose, using the formula of the S7S-TwcetsgWkumpxv Glucose study (ADAG), Diabetes Care, Vol.31,#8,Sep. 2007 02/24/2024 8:29 AM EST 02/24/2024 8:29 AM EST us Generic External Data Provider LAB BLOOD ORDERAB LES Final Result Performing Organization Address City/[facility]/ZIP Co de Phone Number [facility] [address] [place] [phone] * Ferritin (02/24/2024 8:29 AM EST) Ferritin 116 10 - 250 ng/mL [facility] 02/24/2024 8:29 AM EST 02/24/2024 8:29 AM EST us Generic External Data Provider LAB BLOOD ORDERAB LES Final Result Performing Organization Address [facility] Co de Phone Number [facility] [address] [place] [phone] [phone] * (ABNORMAL) Lipid Panel, Standard (02/24/2024 8:29 AM EST) Triglycerides 61 <150 mg/dL [facility] Comment:Desirable Triglyceri de: less than 150 mg/dLBorderline High Triglyceride 150-199 mg/dLHigh Triglyceride: 200-499 mg/dLVery High Triglyceride: greater than or equal to 5OO mg/dL Cholesterol 187 <200 mg/dL [facility] Comment:Desirable Cholestero l: less than 200 mg/dLBorderline High Cholesterol: 200-239 mg/dLHigh Cholesterol: greater than 239 mg/dL LDL Cholesterol Calculated 110(H) <100 mg/dL [facility] Comment:Desirable LDL: less than 100 mg/dLNear Optimal/Above Optimal LDL: 110- 129 mg/dLBorderline High LDL: 130-159 mg/dLHigh LDL: 160-189 mg/dLVery High LDL: greater than or equal to 190 mg/dL HDL Cholesterol 65 >40 mg/dL [facility] Comment:Desirable HDL: great er than 40 mg/dL Note: This HDL assay may give artificially low results in patients with liver disease. 02/24/2024 8:29 AM EST 02/24/2024 8:29 AM EST us Generic External Data Provider LAB BLOOD ORDERAB LES Final Result Performing Organization Address [facility] de Phone Number [facility] [address] [place] [phone] * (ABNORMAL) Basic Metabolic Panel (02/24/2024 8:29 AM EST) Sodium 142 135 - 145 mmol/L [facility] Potassium 4.0 3.3 - 5.1 mmol/L [facility] Chloride 108 96 - 108 mmol/L [facility] Carbon Dioxide 31(H) 22 - 29 mmol/L [facility] Anion Gap 7(L) 12 - 20 [facility] Urea Nitrogen (BUN) 15 9 - 16 mg/dL [facility] Creatinine, Serum 0.68 0.5 - 1.4 mg/dL [facility] Estimated Glomerular Filt Rate >60 [facility] Comment:Chronic Kidney Disea se: Estimated GFR < 60 mL/min/1.64y5Dqcrpk Kidney Disease: Estimated GFR < 15 mL/min/1.73m2 Glucose 88 60 - 115 mg/dL [facility] Calcium 8.9 8.4 - 10.2 mg/dL [facility] 02/24/2024 8:29 AM EST 02/24/2024 8:29 AM EST us Generic External Data Provider LAB BLOOD ORDERAB LES Final Result Performing Organization Address [facility] Co de Phone Number [facility] [address] [place] [phone] * BI Mammogram Screening Tomosynthesis Bilateral (07/13/2023 12:03 PM EDT) Anatomical Region Laterality Modality Breast Bilateral Mammography 07/13/2023 12:0 3 PM EDT Narrative 08/09/2023 8:09 AM EDT ? [facility] ? [address] ?[place] [address] ? Mammography Report ? Signed ? Patient: Barrera Munoz,Serenity M ?MR#: [id number] ?? [id number] ? : 1975 ?Acct:[id number] ? Age/Sex: 47 / F ?ADM Date: 06/05/24 ? Loc: HO.MAMMO ? Attending Dr: Basilia Colon MD ? Ordering Physician: Basilia Colon MD ?Results: 1Ne ?? gative ? Date of Service: 07/13/23 ?Follow Up: 1 Year From Orig ?? inal Mammogram ? Procedure(s): MM tomosynthesis screening BI ?? Accession Number(s): [id number] ? cc: Basilia Colon MD ? EXAMINATION: [...] 08/09/23804 ? DD/ 1203 ? TD/TT: ? Burrer Marker Axle: ? Procedure Note Donotterryter, Image - 08/09/2023 [facility] [address] [place] [address] Mammography Report Signed Patient: Serenity Gómez MMR#: [id number] : 1975Acct:[id number] Age/Sex: 47 / FADM Date: 07/13/23 Loc: HO.MAMMO Attending Dr: Basilia Colon MD Ordering Physician: Basilia Colon MDResults: 1Ne gative Date of Service: 07/13/23Follow Up: 1 Year From Orig inal Mammogram Procedure(s): MM tomosynthesis screening BI Accession Number(s): [id number] cc: Basilia Colon MD EXAMINATION: MM SCREENING [...] in OV> 08/09/23 0805 DD/ 1203 TD/TT: Burrer Marker Axle: Basilia Colon MD IMG BI PROCEDURES Edited Result - Final * Pap Smear (12/29/2022 2:49 PM EST) 12/29/2022 2:49 PM EST 01/03/2023 7:00 AM EST [facility] - 01/13/2023 4:11 PM EST ----- ------- Name: Serenity Gómez ? Age/Sex: 47/F ? : 1975 Unit#: [id number] ?? Attend Dr: Chalino Benton MD ?Re12/29/22 ?Status: DEP REF ? Location: HO.LNP ?Disch: ? ----- ------- SPEC : [id number] ?RECD: 01/03/23 ? STATUS: ??SOUT ? REQ NUM: [id number] ? AN: 12/29/22-1448 ? SUBM DR: Chalino [...] 66, 68) ?? HPV testing performed by [facility], [place], [place]. ??See reference laboratory ?? portion of the EMR for entire report. ?Clinical Information LMP: Postmenopausal Previous PAP test: 2021, ASCUS, HPV+ ? Material Received ?? ThinPrep-Cervical Copies To: ?? Basilia Colon MD ?? [address] ?? [place] [address] ? Chalino Benton MD ?? [address] [place] [address] [address] ?? [place] [address] ?? [phone] ----- ------- Signed (signature on file) MANUEL Uriarte ([facility]) 01/13/23 1611 ? ----- ------- ? END OF REPORT ? us Generic External Data Provider LAB CYTOLOGY NATHALIA GIBBONS Final Result [facility] [address] [place] [address] [place] [phone] * HPV E6/E7 RFLX OLGA 16 18/45 (11/11/2021 3:37 PM EDT) HPV mRNA E6/E7 rflx Not Detected Not Detected [facility] Comment: Methodology: Resident Physician In Radiology-Mediated Amplification This assay detects E6/E7 viral messenger RNA (mRNA) from 14 high-risk HPV types (16,18,31,33,35,39,45,51,52,56,58,59,66,68). Cervical sources are required for HPV testing. If a vaginal source from a patient who has had a total hysterectomy with removal of cervix was submitted, please contact the testing laboratory for alternative testing options. For additional information, please refer to http://[facility].[employer]/faq/DPK570r7 (This link if provided for information/ educational purposes only.) THIS TEST WAS PERFORMED AT: [facility] [address] [place] [address] [address] [facility] [place], [place] ??[phone] ELIZABETH ANDRES MD 11/11/2021 3:37 PM EDT Chalino Benton MD HISTORICAL/NON ORDERABLE LABS Fi nal Result Performing Organization Address [facility]/State/ZIP Co de Phone Number [facility] * Hm Colonoscopy (07/08/2021 9:47 AM EDT) Historical Provider HEALTH MAINTENANCE Final Result * HIV 1/2 ANTIGEN/ANTIBODY,FOURTH GENERATION W/RFL (10/17/2020 1:05 PM EDT) [facility] HIV-1/2 ANTIGEN AND ANTIBODIES, 4TH GENERATION W/ REFLEX NON-REACT ELENA NON-REACT ELENA [facility] Comment: HIV-1 antigen and HIV-1/HIV-2 [...] ? For additional information please refer to http://education.[employer]/faq/IBL456 (This link is being provided for informational/ educational purposes only.) ? The performance of this assay has not been clinically validated in patients less than 2 years old. ?? 10/17/2020 1:05 PM EDT Basilia Colon MD LAB BLOOD ORDERABLES Fin al Result [facility] [address] from Last 3 Months or Most Recently Relevant to Health Maintenance Insurance [employer] [facility] [facility] Care Teams Hse Specialist Relationship Specialty Start Date End Date Basilia Colon MD [address] [place] [phone] PCP - General Family Medicine 12/27/17
--- OUTSIDE RECORDS SUMMARY | 2024-05-03 18:48 | XMS_ITS | Clinical Summary ---
Author Organization [facility] Address [address] [place] [address] Care Team Providers Care Weld Fitter Name Role Phone Unavailable Primary Care Provider [...]
== END 2024-05-03 15:58 | disposition home or self-care (01) ==
LOC: HO.HBS 15:06
PROVIDERS: PCP Internal Medicine; Visit Provider Physician Assistant Surgical
DX: L98.7 Excessive and redundant skin and subcutaneous tissue (principal)
CPT/HCPCS: 99213

== ENCOUNTER → 2024-05-03 15:05 | Outpatient (BNVA) | payer OTHER, SELFPAY | PROVIDERS: PCP Internal Medicine; Visit Provider Physician Assistant Surgical | DX: L98.7 Excessive and redundant skin and subcutaneous tissue (principal); Z98.84 Bariatric surgery status | CPT/HCPCS: 99212 ==

== ENCOUNTER 2024-06-05 08:05 | Outpatient (AMB) | payer OTHER, SELFPAY ==
--- OUTSIDE RECORDS SUMMARY | 2024-06-05 08:13 | XMS_ITS | Clinical Summary ---
Author Organization [employer] [facility] ity Address [address] [place] [address] Care Team Providers Care Glass Beveller Name Role Phone Unavailable Primary Care Provider [...] - 2023-2 5 season) 2023 Influenza Vaccine (Season Ended) 2024 HIB Vaccines Aged Out No longer eligi [...] age to complete this topic Meningococcal B Vaccine Aged Out No l onger eligible based on patient's age to complete [...]
--- OUTSIDE RECORDS SUMMARY | 2024-06-05 08:14 | XMS_ITS | Encounter Summary ---
Author Organization [employer] Address [address] [facility] [address] [place] [address] Care Team Providers Care Carburetor Mechanic Name Role Phone Basilia Colon MD Primary Care Provider + Encounter Details Date Type Department Care Team ([facility] st Contact Info) Description 07/05/2023 Orders Only [facility] [address] [place], [place] [phone] ProviderBouchra MD Social History Tobacco Use Types [...] Description 06/22/2024 11:45 AM EDT Office Visit [facility] [address] [place] [address] Basilia Colon MD [address] [place] [address] documented as of this encounter Procedures Procedure Name Priority Date/Time Associated Diagnosis Comments HM COLONOSCOPY Routine 07/08/2021 9:47 AM EDT documented in this encounter Results * Hm Colonoscopy (07/08/2021 9:47 AM EDT) Historical Provider [facility] Final Result documented in this encounter Visit Diagnoses Not on filedocumented in this encounter Care Teams Carburetor Mechanic Relationship Specialty Start Date End Date Basilia Colon MD [address] [place] [phone] PCP - General Family Medicine 12/27/17 documented as of this encounter
--- OUTSIDE RECORDS SUMMARY | 2024-06-05 08:14 | XMS_ITS | Clinical Summary ---
Author Organization [facility] Address [address] [place] [address] Care Team Providers Care Chronic Disease Manager Name Role Phone Unavailable Primary Care [...] Description 03/12/2024 3:40 PM EST Office Visit [facility] [address] [place] [phone] Thaddeus Wright [facility] Encounter for dental examination (Primary Dx) from [...] 4:20 PM EDT Office Visit [facility] [address] [place] [phone] Thaddeus Wright, [facility] [address] [place] [address] Health Maintenance Due Date Last Done Comments [...] 011 Imm-Zoster, Recombinant (1 of 2) 08/01/2023 [id number] ( season) 2023 Imm-Influenza (#1) 2023 11/28/2020, 1 , 11/03/2010 Alcohol and Drug Screen 02/08/2024 Depression Annual Screen 02/08/2024 Hypertension Screening (#1) 02/28/2024 Tobacco Screening 08/14/2024 08/15/2023 Dental BW 03/14/2025 03/12/2024, 07/0 09/2023, 02/09/2023 Dental Examination 03/14/2025 03/12/2024, 0 08/15/2023, 02/09/2023 Dental Perio Charting 03/14/2025 03/12/2024 , 08/15/2023, 02/09/2023 Dental Prophy 03/14/2025 03/12/2024, 07/0 09/2023, 02/09/2023 Diabetes Screening 02/23/2027 02/24/2024, 0 02/24/2024, 02/24/2024, Additional history exists Lipid Screening 02/23/2029 02/24/2024, [...]
--- OUTSIDE RECORDS SUMMARY | 2024-06-05 08:14 | XMS_ITS | Encounter Summary ---
Author Organization [employer] [facility] Address [address] [place] [address] [address] [place] [address] Care Team Providers Care Automotive Fuel Systems Converter Name Role Phone Basilia Colon MD Primary Care Provider + Encounter Details Date Type Department Care Team (Late Contact Info) Description 07/29/2022 Abstract [facility] [address] [place] [phone] Basilia Colon MD [address] [place] [address] [phone] Social History Tobacco Use Types Packs/Day Years [...] Description 06/22/2024 11:45 AM EDT Office Visit [facility] [address] [place] [address] [phone] Basilia Colon MD [address] [place] [address] [phone] documented as of this encounter Visit Diagnoses Not on filedocumented in this encounter Care Teams [employer] Fuel Systems Converter Relationship Specialty Start Date End Date Basilia Colon MD [address] [place] [phone] PCP - General Family Medicine 12/27/17 documented as of this encounter
--- OUTSIDE RECORDS SUMMARY | 2024-06-05 08:14 | XMS_ITS | Encounter Summary ---
Author Organization [employer] [facility] Address [address] [place] [address] 7t [place] [address] Care Team Providers Care Partnership Development Manager Name Role Phone Basilia Colon MD Primary Care Provider + Encounter Details Date Type Department Care Team (Late Contact Info) Description 11/10/2022 Abstract [facility] [address] [place] [address] [phone] Jannet Yoder Social History Tobacco Use Types [...] Description 06/22/2024 11:45 AM EDT Office Visit [facility] [address] [place] [address] [phone] Basilia Colon MD [address] [place], [place] [phone] documented as of this encounter Procedures Procedure [...] on filedocumented in this encounter Care Teams Partnership Development Manager Relationship Specialty Start Date End Date Basilia Colon MD [address] [place] [phone] PCP - General Family Medicine 12/27/17 documented as of this encounter
--- OUTSIDE RECORDS SUMMARY | 2024-06-05 08:14 | XMS_ITS | Clinical Summary ---
Author Organization [employer] Address [address] [place] [address] 7t [place] [address] Care Team Providers Care Retarder Operator Name Role Phone Basilia Colon MD Primary Care Provider + Allergies No known active allergies Medications tiZANidine (Zanaflex) 4 MG capsuleIndicati ons:Acute pain of right shoulder Take 1 capsule (4 mg) by mouth 3 times daily. 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 Resolved Problems Problem Noted Date Diagnosed Date Resolved Date Obesity (BMI 30.0-34.9) 12/27/2022 11/0 05/2023 Assessment & Plan (12/27/2022 3:25 PM EST): Status Post bariatric surgery Significant decrease in BMI Continue Multivitamins Iron + zinc supplementation F/[place] [facility] [place] F/u in 6 mos Morbid obesity 09/03/2011 12/12/2023 Overview (12/12/2023): Sp Laparoscopic sleeve gastrectomy on 11[place]04/22 [place] [facility] Assessment & Plan (06/16/2022 11:20 AM EDT): Discussed re weight reduction options including exercise, life style modifications, diet, referral to weight reduction specialist. Discussed re lower calorie intake, increase dietary fiber I gave her information about weight management program for baritric surgery Encounters Date Type Department Care Team Description 03/29/2024 Telephone [facility] [address] [place] [phone] Basilia Colon MD May recall from Last 3 Months Immunizations Name Administration [...] 06/22/2024 11:45 AM EDT Office Visit [facility] [address] [place] [address] Basilia Colon MD [address] [place] [address] Health Maintenance Due Date Last Done Comments CT Colonography 1973 FIT DNA/Cologuard 1975 FIT 1973 FOBT 1975 Sigmoidoscopy 1975 Family Planning (PISQ) 1988 Hepatitis C Screening 08/01/1991 DTaP/Tdap/Td Vaccines (2 - Td or Tdap) 01/05/2021 01/05/2011 Pneumococcal Vaccine: 50+ Years (1 of 1 - PCV) 08/01/2023 Zoster Vaccines (1 of 2) 08/01/2023 COVID-19 Vaccine (3 - season) 2023 11/07/2020, 10/17/2020 Influenza Vaccine (#1) [...] Procedure Name Priority Date/Time Associated Diagnosis Comments LIPID PANEL, STANDARD Routine 02/24/2024 8:29 AM EST BI MAMMOGRAM [...] Relevant to Health Maintenance Results * (ABNORMAL) Lipid Panel, Standard (02/24/2024 8:29 AM EST) Triglycerides 61 <150 mg/dL [facility] Comment:Desirable Triglyceri de: less than 150 mg/dLBorderline High Triglyceride 150-199 mg/dLHigh Triglyceride: 200-499 mg/dLVery High Triglyceride: greater than or equal to 5OO mg/dL Cholesterol 187 <200 mg/dL [facility] Comment:Desirable Cholestero l: less than 200 mg/dLBorderline High Cholesterol: 200-239 mg/dLHigh Cholesterol: greater than 239 mg/dL LDL Cholesterol Calculated 110(H) <100 mg/dL [facility] Comment:Desirable LDL: less than 100 mg/dLNear Optimal/Above Optimal LDL: 110- 129 mg/dLBorderline High LDL: 130-159 mg/dLHigh LDL: 160-189 mg/dLVery High LDL: greater than or equal to 190 mg/dL HDL Cholesterol 65 >40 mg/dL [facility] Comment:Desirable HDL: great er than 40 mg/dL Note: This HDL assay may give artificially low results in patients with liver disease. 02/24/2024 8:29 AM EST 02/24/2024 8:29 AM EST us Generic External Data Provider LAB BLOOD ORDERAB LES Final Result [facility] [address] [place] [address] [phone] * BI Mammogram Screening Tomosynthesis Bilateral (07/13/2023 12:03 PM EDT) Anatomical Region Laterality Modality Breast Bilateral Mammography 07/13/2023 12:0 3 PM EDT Narrative 08/09/2023 8:09 AM EDT ? [facility] [place] ? [address] ?[place] [address] ? Mammography Report ? Signed ? Patient: Serenity Gómez ?MR#: [id number] ?? [id number] ? : 1975 ?Acct:[id number] ? Age/Sex: 47 / F ?ADM Date: 07/13/23 ? Loc: HO.MAMMO ? Attending Dr: Basilia Colon MD ? Ordering Physician: Basilia Colon MD ?Results: 1Ne ?? gative ? Date of Service: 07/13/23 ?Follow Up: 1 Year From Orig ?? inal Mammogram ? Procedure(s): MM tomosynthesis screening BI ?? Accession Number(s): [id number] ? cc: Basilia Colon MD ? EXAMINATION: [...] 0805 ? DD/ 1203 ? TD/TT: ? Cleaning Handyman: ? Procedure Note Armando, Kwan - 08/09/2023 [facility] [address] [place] [address] Mammography Report Signed Patient: Serenity Gómez MMR#: [id number] : 1975Acct:[id number] Age/Sex: 47 / FADM Date: 07/13/23 Loc: HO.MAMMO Attending Dr: Basilia Colon MD Ordering Physician: Basilia Colon MDResults: 1Ne gative Date of Service: 07/13/23Follow Up: 1 Year From Orig inal Mammogram Procedure(s): MM tomosynthesis screening BI Accession Number(s): [id number] cc: Basilia Colon MD EXAMINATION: MM SCREENING [...] in OV> 08/09/23 0805 DD/ 1203 TD/TT: Cleaning Handyman: Basilia Colon MD IM BI PROCEDURES Edited Result - Final * Pap Smear (12/29/2022 2:49 PM EST) 12/29/2022 2:49 PM EST 01/03/2023 7:00 AM EST [facility] - 01/13/2023 4:11 PM EST ----- ------- Name: Serenity Gómez ? Age/Sex: 47/F ? : 1975 Unit#: [id number] ?? Attend Dr: Chalino Benton MD ?Re12/29/22 ?Status: DEP REF ? Location: HO.LNP ?Disch: ? ----- ------- SPEC : [id number] ?RECD: 01/03/23 ? STATUS: ??SOUT ? REQ NUM: [id number] ? AN: 12/29/22-6168 ? SUBM DR: Chalino Benton MD ? ENTERED: ??01/04/23-8596 ?SP TYPE: Pap Smr ?OTHR DR: Basilia [...] 66, 68) ?? HPV testing performed by [facility], [place], [place]. ??See reference laboratory ?? portion of the EMR for entire report. ?Clinical Information LMP: Postmenopausal Previous PAP test: 2021, ASCUS, HPV+ ? Material Received ?? ThinPrep-Cervical Copies To: ?? Basilia Colon MD ?? [address] [facility] ?? [place] [address] ? Chalino Benton MD ?? [address] [place] ?? [place], [place] ?? [phone] ----- ------- Signed (signature on file) MANUEL Uriarte (ASCP) 01/13/23 1611 ? ----- ------- ? END OF REPORT ? us Generic External Data Provider LAB CYTOLOGY YEHUDAE EDWIGE Final Result [facility] [address] [place], [place] [phone] * HPV E6/E7 RFLX OLGA 16 18/45 (11/11/2021 3:37 PM EDT) Pathologist [facility] HPV mRNA E6/E7 rflx Not Detected Not Detected [facility] Comment: Methodology: Package Clerk-Mediated Amplification This assay detects E6/E7 viral messenger RNA (mRNA) from 14 high-risk HPV types (16,18,31,33,35,39,45,51,52,56,58,59,66,68). Cervical sources are required for HPV testing. If a vaginal source from a patient who has had a total hysterectomy with removal of cervix was submitted, please contact the testing laboratory for alternative testing options. For additional information, please refer to http://education.[employer]/faq/EPO212f9 (This link if provided for information/ educational purposes only.) THIS TEST WAS PERFORMED AT: [facility] [address] [place] [address],[address] [place], [place] ??[phone] ELIZABETH ANDRES MD 11/11/2021 3:37 PM EDT Chalino Benton MD HISTORICAL/NON ORDERABLE LABS Fi nal Result [facility] * Hm Colonoscopy (07/08/2021 9:47 AM EDT) Historical Provider HEALTH MAINTENANCE Final Result * HIV 1/2 ANTIGEN/ANTIBODY,FOURTH GENERATION W/RFL (10/17/2020 1:05 PM EDT) Pathologist [facility] HIV-1/2 ANTIGEN AND ANTIBODIES, 4TH GENERATION W/ REFLEX NON-REACT ELENA NON-REACT ELENA [facility] Comment: HIV-1 antigen and [...] ? For additional information please refer to http://education.[employer]/faq/WHJ925 (This link is being provided for informational/ educational purposes only.) ? The performance of this assay has not been clinically validated in patients less than 2 years old. ?? 10/17/2020 1:05 PM EDT us Basilia Colon MD LAB BLOOD ORDERABLES Fin al Result [facility]where [address] from Last 3 Months or Most Recently Relevant to Health Maintenance Insurance [facility] Care Teams Retarder Operator Relationship Specialty Start Date End Date Basilia Colon MD [address] [place] [address] PCP - General Family Medicine 12/27/17
--- NOTE | 2024-06-05 09:54 | MHC.OFFVISWM ---
VS Expanded 06/05/24 09:55 Height 4 ft 11 in Weight 135 lb BMI 27.3 Intake Visit Reasons: TV Pre Op Panniculectomy 06/28/24 *PUNCHER* Cable Engineer Outside Plant Required: Yes Cable Engineer Outside Plant Services: Cable Engineer Outside Plant Present Information Interpreted: clinical only Allergies No Known Allergies Allergy (Verified 06/05/24 09:56) Medication List - Last Reconciled 06/05/24 by Roel Monzon MD cephalexin 500 mg PO Q12H cholecalciferol (vitamin D3) 125 mcg PO DAILY clotrimazole 1% (Antifungal (clotrimazole)) 1 appl topical BID docusate sodium (Colace) 100 mg PO DAILY plqhzcwmrjrb-mrp-bnzz-FA-vit K 45 mg iron- 800 mcg-120 mcg (Bariatric Multivitamins) caps PO ondansetron 4 mg PO Q6H PRN sennosides (senna) 17.2 mg (2 x 8.6 mg) PO BEDTIME PRN HPI HPI TV Pre Op Panniculectomy 06/28/24 *PUNCHER*: Details: Start time: 9.44am, End time: 10.34 I spent 45 minutes speaking with the patient on the phone plus an additional 5 minutes reviewing and updating records for a total of 50 minutes HPI Comments Details: Overall weight loss: 76.6lbs, or 36.2% TBWL This is the preoperative appointment for panniculectomy [facility] Medical History Well woman exam BMI 39.0-39.9,adult Morbid obesity Right shoulder injury Left lateral epicondylitis Right shoulder tendonitis Carpal tunnel syndrome on both sides Normal vulvar exam Hemorrhoids Diverticulosis Tubular adenoma Encounter for screening colonoscopy Postmenopausal bleeding Nephrolithiasis GERD (gastroesophageal reflux disease) Anxiety Depression BENITO III (cervical intraepithelial neoplasia grade III) with severe dysplasia Carpal tunnel syndrome Acute arthritis Seasonal allergic rhinitis Surgical History S/P laparoscopic sleeve gastrectomy Hx of colonoscopy Tubal ligation status Family History Mother HTN (hypertension) A-fib Arthritis Father Diabetes HTN (hypertension) Sister Lupus Social History Household Members: Spouse Housing: House Are you a primary field care manager to a significant other at home: No Do you presently have visiting nurse or other home services: No Alcohol intake: current Alcohol intake frequency: does not drink Patient Tobacco Use Status: Never used Tobacco Substance Use Type: Marijuana service: No Current occupational status: employed 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 Sexual orientation: Straight/Heterosexual Gender identity: Female Female Reproductive History Menstrual Age of Menarche: 10 Telehealth Telehealth Telehealth Platform: Telephone Location of provider rendering services: practice address Location of patient: address on file Patient Identification confirmed using: Name, : Yes Telehealth method: voice only Patient verbally consented to treatment: Yes Patient verbally consented to billing insurance company: Yes Patient informed of any privacy concerns related to visit: Yes Minutes spent on Phone/Video with Pt.: 50 Assessment & Plan Assessment & Plan (1) Excess skin: Code(s): L98.7 - Excessive and redundant skin and subcutaneous tissue Category: Medical Plan: 1. Plan for panniculectomy. Risks of infection, bleeding, asymmetry, wound dehiscence and blood clots were discussed with the patient. 2. You will have a drain the abdomen that may stay a few weeks before it may be removed 3. You will need to be doing sponge baths the first 1-2 weeks. No showers. You need to have help at home to get you up and limit your activities as much as possible for at least the 4-6 weeks after surgery 4. We will arrange for a visiting nurse to come at home to help you with dressing changes and send me pictures of the procedures. We will send at your home supplies for the dressing changes. 5. Change nutritional plan to one Orgain (HALF scoop in 8oz almond milk) at 5am-7am, one Fit Crunch protein bar at 8am-10am, one Orgain (HALF scoop in 8oz almond milk) at 11am-1pm, one Fit Crunch protein bar at 2pm-4pm, dinner at 5pm (FOUR forkfuls of meat of fish and FOUR forkfuls of vegetables and salad) and more Orgain protein shake (HALF scoop in 8oz almond milk). This will improve weight loss and healing after surgery. 6. Continue all vitamins 7. Do blood work not fasting any day not later than Tuesday06/22/24 and poultry picker the antibiotic prescription from your pharmacy 8. Risks and complications were discussed the possibility of bleeding that may require transfusion, loss of the umbilicus, wound dehiscence or infection, dog ears , flap asymmetry. We also discussed the importance of strict avoidance of weight lifting. 9. Avoid aspirin, motrin, ibuprofen, Aleve, Advil, Naproxyn. Only Tylenol is OK Orders: Orders Prothrombin Time INR Today K91.2 - Postsurgical malabsorption, not elsewhere classified, Z90.3 - Acquired absence of stomach [part of] Type and Screen Today K91.2 - Postsurgical malabsorption, not elsewhere classified, Z90.3 - Acquired absence of stomach [part of] Comprehensive Met. Panel Today K91.2 - Postsurgical malabsorption, not elsewhere classified, Z90.3 - Acquired absence of stomach [part of] Partial Thromboplastin Time Today K91.2 - Postsurgical malabsorption, not elsewhere classified, Z90.3 - Acquired absence of stomach [part of] Complete Blood Count Auto Diff Today K91.2 - Postsurgical malabsorption, not elsewhere classified, Z90.3 - Acquired absence of stomach [part of] Medications: New cephalexin 500 mg PO Q12H 60 caps 2RF M79.3 - Panniculitis, unspecified docusate sodium (Colace) 100 mg PO DAILY 90 caps 0RF K59.00 - Constipation, unspecified ondansetron Only take one every 12 hours as needed if you have nausea 4 mg PO Q6H PRN 20 tabs 0RF nausea and vomiting R11.0 - Nausea
[2024-06-05 09:55] VITALS: BMI 27.3
== END 2024-06-05 10:36 | disposition home or self-care (01) ==
LOC: HO.HBS 08:05
PROVIDERS: PCP Internal Medicine; Visit Provider Surgery
DX: L98.7 Excessive and redundant skin and subcutaneous tissue (principal)
CPT/HCPCS: 98014

== ENCOUNTER 2024-06-28 08:08 | Day surgery (SDC) | payer OTHER, SELFPAY ==
[2024-06-05 11:22] LABS: MANUAL DIFF FLAG NO
[2024-06-05 11:46] LABS: Basophils Percent Auto 0.4 % (0-2); Eosinophils Absolute Auto 0.1 X10*3/uL (0.0-0.4); Eosinophils Percent Auto 1.2 % (0-4); Hematocrit 41.2 % (37.0-47.0); Hemoglobin 13.7 g/dl (12.0-16.0); Imm Gran Abs Auto 0.02 X10*3/uL (0.00-0.03); Imm Gran Pct Auto 0.3 % (0.0-0.4); Lymphocytes Absolute Auto 2.4 X10*3/uL (1.2-4.9); Lymphocytes Percent Auto 31.8 % (20-40); Mean Corpuscular HGB Conc 33.3 g/dl (31.0-35.0); Mean Corpuscular Hemoglobin 29.9 pg (27.0-33.0); Mean Platelet Volume 10.1 fL (9.4-12.3); Monocytes Absolute Auto 0.7 X10*3/uL (0.1-1.2); Monocytes Percent Auto 9.6 % (2-11); Neutrophils Absolute Auto 4.2 x10*3/uL (2.0-8.3); Neutrophils Percent Auto 56.7 % (45-73); Platelet Count 235 X10*3/uL (160-400); Red Blood Count 4.58 X10*6/uL (4.20-5.50); Red Cell Distribution Width 12.1 % (11.0-16.0); White Blood Count 7.4 X10*3/uL (4.8-10.8)
[2024-06-05 11:50] LABS: Prothrombin Time 11.3 SEC (10.9-12.4)
[2024-06-05 11:52] LABS: Partial Thromboplastin Time 29.3 SEC (26.0-36.8)
[2024-06-05 12:24] LABS: Alanine Aminotransferase 11 U/L (0-31); Albumin Level 4.2 g/dL (3.5-5.0); Alkaline Phosphatase 71 U/L (39-117); Anion Gap 9 (12-20); Aspartate Amino Transferase 21 U/L (5-31); Bilirubin Total 0.9 mg/dL (0.0-1.0); Blood Urea Nitrogen 19 mg/dL (9-16); Calcium 9.1 mg/dL (8.4-10.2); Carbon Dioxide 30 mmol/L (22-29); Chloride 106 mmol/L (96-108); Estimated Glomerular Filt Rate > 60; Glucose Random 89 mg/dL (60-115); Potassium 4.5 mmol/L (3.3-5.1); Sodium 140 mmol/L (135-145); Total Protein 7.8 g/dL (6.5-8.0)
--- OUTSIDE RECORDS SUMMARY | 2024-06-05 12:56 | XMS_ITS | Clinical Summary ---
Author Organization [employer] [facility] Address [address] [place] [address] Care Team Providers Care Skiing Teacher Name Role Phone Unavailable Primary Care Provider [...]
--- OUTSIDE RECORDS SUMMARY | 2024-06-05 12:56 | XMS_ITS | Clinical Summary ---
Author Organization [facility] Address [address] [place] [address] Care Team Providers Care Help Aid Name Role Phone Unavailable Primary Care Provider [...] Description 03/12/2024 3:40 PM EST Office Visit [facility] [address] [place] [phone] Thaddeus Wright [facility] Encounter for dental examination (Primary Dx) [...] 4:20 PM EDT Office Visit [facility] [address] [place] [address] Thaddeus Wright, [facility] [address] [place] [address] Health Maintenance Due Date Last Done Comments [...] 011 Imm-Zoster, Recombinant (1 of 2) 08/01/2023 [id number] ( season) 2023 Imm-Influenza (#1) 2023 11/28/2020, [...]
--- OUTSIDE RECORDS SUMMARY | 2024-06-05 12:56 | XMS_ITS | Encounter Summary ---
Author Organization [facility] Address [address] [place] [address] 7t [place] [address] Care Team Providers Care Medical Reception Name Role Phone Basilia Colon MD Primary Care Provider + Encounter Details Date Type Department Care Team (Late Contact Info) Description 07/29/2022 Abstract [facility] [address] [place] [phone] Basilia Colon MD [address] [place] [phone] Social History Tobacco Use Types Packs/Day Years [...] Description 06/22/2024 11:45 AM EDT Office Visit [facility] [address] [place] [address] [phone] Basilia Colon MD [address] [place] [address] [phone] documented as of this encounter Visit Diagnoses Not on filedocumented in this encounter Care Teams Medical Reception Relationship Specialty Start Date End Date Basilia Colon MD [address] [place] [phone] PCP - General Family Medicine 12/27/17 documented as of this encounter
--- OUTSIDE RECORDS SUMMARY | 2024-06-05 12:56 | XMS_ITS | Encounter Summary ---
Author Organization [employer] Address [address] [facility] 7t [place] [address] Care Team Providers Care Dye Tub Operator Name Role Phone Basilia Colon MD Primary Care Provider + Encounter Details Date Type Department Care Team ([facility] st Contact Info) Description 06/05/2024 Orders Only GENERIC EXTERNAL DATA DEPARTMENT Provider, Generic External Data Social History Tobacco Use Types Packs/Day Years [...] Description 06/22/2024 11:45 AM EDT Office Visit [facility] [address] [place] [address] Basilia Colon MD [address] [place], [place] [phone] documented as of this encounter Procedures Procedure Name Priority Date/Time Associated Diagnosis Comments CBC WITH AUTO DIFFERENTIAL Routine 06/05/2024 11:20 AM EDT APTT Routine 06/05/2024 11:20 AM EDT PROTHROMBIN TIME-INR Routine 06/05/2024 11:20 AM EDT COMPREHENSIVE METABOLIC PANEL Routine 06/05/2024 11:20 AM EDT documented in this encounter Results * (ABNORMAL) Comprehensive Metabolic Panel (06/05/2024 11:20 AM EDT) Sodium 140 135 - 145 mmol/L [facility] Potassium 4.5 3.3 - 5.1 mmol/L [facility] Chloride 106 96 - 108 mmol/L [facility] Carbon Dioxide 30(H) 22 - 29 mmol/L [facility] Anion Gap 9(L) 12 - 20 [facility] Urea Nitrogen (BUN) 19(H) 9 - 16 mg/dL [facility] Creatinine, Serum 0.67 0.5 - 1.4 mg/dL [facility] Creatinine Clr Calc Pharmacy TNP [facility] Comment:Unable to calculate eCrCL; all parameters not provided. Estimated Glomerular Filt Rate >60 [facility] Comment:Chronic Kidney Disea se: Estimated GFR < 60 mL/min/1.35m7Xoswxj Kidney Disease: Estimated GFR < 15 mL/min/1.73m2 Glucose 89 60 - 115 mg/dL [facility] Calcium 9.1 8.4 - 10.2 mg/dL [facility] Bilirubin, Total 0.9 0.0 - 1.0 mg/dL [facility] Aspartate Amino Transferase 21 5 - 31 U/L [facility] Alanine Aminotransferase 11 0 - 31 U/L [facility] Total Protein 7.8 6.5 - 8.0 g/dL [facility] Albumin Level 4.2 3.5 - 5.0 g/dL [facility] Alkaline Phosphatase 71 39 - 117 U/L [facility] 06/05/2024 11:2 0 AM EDT 06/05/2024 11:20 AM EDT Generic External Data Provider LAB BLOOD ORDERAB LES Final Result Performing Organization Address [facility] Co de Phone Number [facility] [address] [place] [phone] * Partial Thromboplastin Time, Activated (APTT) (06/05/2024 11:20 AM EDT) Partial Thromboplastin Time 29.3 26.0 - 36.8 SEC [facility] Comment:For information rega rding the monitoring of direct thrombininhibitors, please refer to Pharmacy. 06/05/2024 11:2 0 AM EDT 06/05/2024 11:20 AM EDT us Generic External Data Provider LAB BLOOD ORDERAB LES Final Result Performing Organization Address City/[facility]/ZIP Co de Phone Number [facility] [address] [place] [phone] * Prothrombin Time-INR (06/05/2024 11:20 AM EDT) Pathologist [facility] Prothrombin Time 11.3 10.9 - 12.4 SEC [facility] INTERNATIONAL NORM RATIO 1.0 0.9 - 1.1 [facility] Comment:INTERNATIONAL NORMAL IZED RATIO (INR) REFERENCE RANGES Reference RangeFor patients not on anticoagulant therapy: 0.9 - 1.1INR ranges for oral anticoagulanttherapy:For prevention and treatment of venous thrombosis and pulmonary embolism: 2.0 - 3.0For acute myocardial infarction with aspirin therapy: 2.0 - 3.0For acute myocardial infarction without aspirin therapy: 3.0 - 4.0For patients with mechanical prosthetic heart valves: 2.5 - 3.5 06/05/2024 11:2 0 AM EDT 06/05/2024 11:20 AM EDT us Generic External Data Provider LAB BLOOD ORDERAB LES Final Result Performing Organization Address City/State/[facility] Co de Phone Number [facility] [address] [place] [phone] * CBC auto differential (06/05/2024 11:20 AM EDT) [facility] White Blood Count 7.4 4.8 - 10.8 X10*3/uL [facility] Red Blood Count 4.58 4.20 - 5.50 X10*6/uL [facility] Hemoglobin 13.7 12.0 - 16.0 g/dl [facility] Hematocrit 41.2 37.0 - 47.0 % [facility] Mean Corpuscular Volume 90.0 80.0 - 98.0 fL [facility] Mean Corpuscular Hemoglobin 29.9 27.0 - 33.0 pg [facility] Mean Corpuscular HGB Conc 33.3 31.0 - 35.0 g/dl [facility] Red Cell Distribution Width 12.1 11.0 - 16.0 % [facility] Platelet Count 235 160 - 400 X10*3/uL [facility] Mean Platelet Volume 10.1 9.4 - 12.3 fL [facility] Neutrophils Percent Auto 56.7 45 - 73 % [facility] Imm Gran Pct Auto 0.3 0.0 - 0.4 % [facility] Lymphocytes Percent Auto 31.8 20 - 40 % [facility] Monocytes Percent Auto 9.6 2 - 11 % [facility] Eosinophils Percent Auto 1.2 0 - 4 % [facility] Basophils Percent Auto 0.4 0 - 2 % [facility] NRBC Pct Auto 0.0 0.0 - 0.2 /100WBC [facility] Neutrophils Absolute Auto 4.2 2.0 - 8.3 x10*3/uL [facility] Imm Gran Abs Auto 0.02 0.00 - 0.03 X10*3/uL [facility] Lymphocytes Absolute Auto 2.4 1.2 - 4.9 X10*3/uL [facility] Monocytes Absolute Auto 0.7 0.1 - 1.2 X10*3/uL [facility] Eosinophils Absolute Auto 0.1 0.0 - 0.4 X10*3/uL [facility] Basophils Absolute Auto 0.0 0.0 - 0.2 X10*3/uL [facility] NRBC Abs Auto 0.000 0.0 - 0.012 X10*3/uL [facility] 06/05/2024 11:2 0 AM EDT 06/05/2024 11:20 AM EDT us Generic External Data Provider LAB BLOOD ORDERAB LES Final Result Performing Organization Address City/State/[facility] Co de Phone Number [facility] [address] [place] [address] [phone] documented in this encounter Visit Diagnoses Not on filedocumented in this encounter Care Teams Dye Tub Operator Relationship Specialty Start Date End Date Basilia Colon MD [address] [place] [phone] PCP - General Family Medicine 12/27/17 documented as of this encounter
--- OUTSIDE RECORDS SUMMARY | 2024-06-05 12:56 | XMS_ITS | Encounter Summary ---
Author Organization [employer] Address [address] [place] [address] Care Team Providers Care Shell Mold Bonder Name Role Phone Basilia Colon MD Primary Care Provider + Encounter Details Date Type Department Care Team ([facility] st Contact Info) Description 07/05/2023 Orders Only [facility] [address] [place], [place] [phone] ProviderBouchra MD Social History Tobacco Use Types [...] Description 06/22/2024 11:45 AM EDT Office Visit [facility] [address] [place] [address] Basilia Colon MD [address] [place] [address] documented as of this encounter Procedures Procedure Name Priority Date/Time Associated Diagnosis Comments HM COLONOSCOPY Routine 07/08/2021 9:47 AM EDT documented in this encounter Results * Hm Colonoscopy (07/08/2021 9:47 AM EDT) Historical Provider [facility] Final Result documented in this encounter Visit Diagnoses Not on filedocumented in this encounter Care Teams Shell Mold Bonder Relationship Specialty Start Date End Date Basilia Colon MD [address] [place] [phone] PCP - General Family Medicine 12/27/17 documented as of this encounter
--- OUTSIDE RECORDS SUMMARY | 2024-06-05 12:56 | XMS_ITS | Clinical Summary ---
Author Organization [employer] Address [address] [place] [address] 7t [place] [address] Care Team Providers Care [employer] Supervisor Name Role Phone Basilia Colon MD Primary Care Provider + Allergies No known active allergies Medications tiZANidine (Zanaflex) 4 MG capsuleIndicati ons:Acute pain of right shoulder Take 1 capsule (4 mg) by mouth 3 times daily. 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 Resolved Problems Problem Noted Date Diagnosed Date Resolved Date Obesity (BMI 30.0-34.9) 12/27/2022 11/0 05/2023 Assessment & Plan (12/27/2022 3:25 PM EST): Status Post bariatric surgery Significant decrease in BMI Continue Multivitamins Iron + zinc supplementation F/u [facility] [place] F/u in 6 mos Morbid obesity 09/03/2011 12/12/2023 Overview (12/12/2023): Sp Laparoscopic sleeve gastrectomy on 11/04/22 [place] [facility] Assessment & Plan (06/16/2022 11:20 AM EDT): Discussed re weight reduction options including exercise, life style modifications, diet, referral to event specialist food demonstrator. Discussed re lower calorie intake, increase dietary fiber I gave her information about weight management program for baritric surgery Encounters Date Type Department Care Team Description 06/05/2024 Orders Only GENERIC EXTERNAL DATA DEPARTMENT Provider, Generic External Data 03/29/2024 Telephone [facility] [address] [place] [phone] Basilia Colon MD May recall from [...] Description 06/22/2024 11:45 AM EDT Office Visit [facility] [address] [place] [phone] Basilia Colon MD [address] [place] [address] Health Maintenance Due Date Last Done Comments [...] Procedure Name Priority Date/Time Associated Diagnosis Comments COMPREHENSIVE METABOLIC PANEL Routine 06/05/2024 11:20 AM EDT APTT Routine 06/05/2024 11:20 AM EDT PROTHROMBIN TIME-INR Routine 06/05/2024 11:20 AM EDT CBC WITH AUTO DIFFERENTIAL Routine 06/05/2024 11:20 AM EDT LIPID PANEL, STANDARD Routine 02/24/2024 8:29 AM [...] Recently Relevant to Health Maintenance Results * CBC auto differential (06/05/2024 11:20 AM EDT) White Blood Count 7.4 4.8 - 10.8 X10*3/uL [facility] Red Blood Count 4.58 4.20 - 5.50 X10*6/uL [facility] Hemoglobin 13.7 12.0 - 16.0 g/dl [facility] Hematocrit 41.2 37.0 - 47.0 % [facility] Mean Corpuscular Volume 90.0 80.0 - 98.0 fL [facility] Mean Corpuscular Hemoglobin 29.9 27.0 - 33.0 pg [facility] Mean Corpuscular HGB Conc 33.3 31.0 - 35.0 g/dl [facility] Red Cell Distribution Width 12.1 11.0 - 16.0 % [facility] Platelet Count 235 160 - 400 X10*3/uL [facility] Mean Platelet Volume 10.1 9.4 - 12.3 fL [facility] Neutrophils Percent Auto 56.7 45 - 73 % [facility] Imm Gran Pct Auto 0.3 0.0 - 0.4 % [facility] Lymphocytes Percent Auto 31.8 20 - 40 % [facility] Monocytes Percent Auto 9.6 2 - 11 % [facility] Eosinophils Percent Auto 1.2 0 - 4 % [facility] Basophils Percent Auto 0.4 0 - 2 % [facility] NRBC Pct Auto 0.0 0.0 - 0.2 /100WBC [facility] Neutrophils Absolute Auto 4.2 2.0 - 8.3 x10*3/uL [facility] Imm Gran Abs Auto 0.02 0.00 - 0.03 X10*3/uL [facility] Lymphocytes Absolute Auto 2.4 1.2 - 4.9 X10*3/uL [facility] Monocytes Absolute Auto 0.7 0.1 - 1.2 X10*3/uL [facility] Eosinophils Absolute Auto 0.1 0.0 - 0.4 X10*3/uL [facility] Basophils Absolute Auto 0.0 0.0 - 0.2 X10*3/uL [facility] NRBC Abs Auto 0.000 0.0 - 0.012 X10*3/uL [facility] 06/05/2024 11:2 0 AM EDT 06/05/2024 11:20 AM EDT us Generic External Data Provider LAB BLOOD ORDERAB LES Final Result [facility] [address] [place] [phone] [phone] * Partial Thromboplastin Time, Activated (APTT) (06/05/2024 11:20 AM EDT) Partial Thromboplastin Time 29.3 26.0 - 36.8 SEC [facility] Comment:For information rega rding the monitoring of direct thrombininhibitors, please refer to Pharmacy. 06/05/2024 11:2 0 AM EDT 06/05/2024 11:20 AM EDT Generic External Data Provider LAB BLOOD ORDERAB LES Final Result Performing Organization Address [facility] Co de Phone Number [facility] [address] [place] [phone] * Prothrombin Time-INR (06/05/2024 11:20 AM EDT) Prothrombin Time 11.3 10.9 - 12.4 SEC [facility] INTERNATIONAL NORM RATIO 1.0 0.9 - 1.1 [facility] Comment:INTERNATIONAL NORMAL IZED RATIO (INR) REFERENCE [...] ORDERAB LES Final Result Performing Organization Address [facility] Co de Phone Number [facility] [address] [place] [phone] * (ABNORMAL) Comprehensive Metabolic Panel (06/05/2024 11:20 AM EDT) Sodium 140 135 - 145 mmol/L [facility] Potassium 4.5 3.3 - 5.1 mmol/L [facility] Chloride 106 96 - 108 mmol/L [facility] Carbon Dioxide 30(H) 22 - 29 mmol/L [facility] Anion Gap 9(L) 12 - 20 [facility] Urea Nitrogen (BUN) 19(H) 9 - 16 mg/dL [facility] Creatinine, Serum 0.67 0.5 - 1.4 mg/dL [facility] Creatinine Clr Calc Pharmacy TNP [facility] Comment:Unable to calculate eCrCL; all parameters not provided. Estimated Glomerular Filt Rate >60 [facility] Comment:Chronic Kidney Disea se: Estimated GFR < 60 mL/min/1.50t4Idhuwe Kidney Disease: Estimated GFR < 15 mL/min/1.73m2 Glucose 89 60 - 115 mg/dL [facility] Calcium 9.1 8.4 - 10.2 mg/dL [facility] Bilirubin, Total 0.9 0.0 - 1.0 mg/dL [facility] Aspartate Amino Transferase 21 5 - 31 U/L [facility] Alanine Aminotransferase 11 0 - 31 U/L [facility] Total Protein 7.8 6.5 - 8.0 g/dL [facility] Albumin Level 4.2 3.5 - 5.0 g/dL [facility] Alkaline Phosphatase 71 39 - 117 U/L [facility] 06/05/2024 11:2 0 AM EDT 06/05/2024 11:20 AM EDT us Generic External Data Provider LAB BLOOD ORDERAB LES Final Result [facility] [address] [place] [phone] * (ABNORMAL) Lipid Panel, Standard (02/24/2024 8:29 AM EST) Triglycerides 61 <150 mg/dL [facility] Comment:Desirable Triglyceri de: less than 150 mg/dLBorderline High Triglyceride 150-199 mg/dLHigh Triglyceride: 200-499 mg/dLVery High Triglyceride: greater than or equal to 5OO mg/dL Cholesterol 187 <200 mg/dL [facility] Comment:Desirable Cholestero l: less than 200 mg/dLBorderline High Cholesterol: 200-239 mg/dLHigh Cholesterol: greater than 239 mg/dL LDL Cholesterol Calculated 110(H) <100 mg/dL [facility] Comment:Desirable LDL: less than 100 mg/dLNear Optimal/Above Optimal LDL: 110- 129 mg/dLBorderline High LDL: 130-159 mg/dLHigh LDL: 160-189 mg/dLVery High LDL: greater than or equal to 190 mg/dL HDL Cholesterol 65 >40 mg/dL [facility] Comment:Desirable HDL: great er than 40 mg/dL Note: This HDL assay may give artificially low results in patients with liver disease. 02/24/2024 8:29 AM EST 02/24/2024 8:29 AM EST us Generic External Data Provider LAB BLOOD ORDERAB LES Final Result Performing Organization Address [facility] Co de Phone Number [facility] [address] [place] [phone] * BI Mammogram Screening Tomosynthesis Bilateral (07/13/2023 12:03 PM EDT) Anatomical Region Laterality Modality Breast Bilateral Mammography 07/13/2023 12:0 3 PM EDT Narrative 08/09/2023 8:09 AM EDT ? [facility] [place] ? [address] ?[place] [address] ? Mammography Report ? Signed ? Patient: Serenity Gómez ?MR#: [id number] ?? [id number] ? : 1975 ?Acct:[id number] ? Age/Sex: 47 / F ?ADM Date: //24 ? Loc: HO.MAMMO ? Attending Dr: Basilia Colon MD ? Ordering Physician: Basilia Colon MD ?Results: 1Ne ?? gative ? Date of Service: 07/13/23 ?Follow Up: 1 Year From Orig ?? inal Mammogram ? Procedure(s): MM tomosynthesis screening BI ?? Accession Number(s): [id number] ? cc: Basilia Colon MD ? EXAMINATION: [...] in OV> ? 08/09/23 0805 ? DD/ ? TD/TT: ? Neurocritical Care Physician: ? Procedure Note Armando, Image - 08/09/2023 [facility] [address] [place], [place] [address] Mammography Report Signed Patient: Serenity Gómez MMR#: [id number] : 1975Acct:[id number] Age/Sex: 47 / FADM Date: 07/13/23 Loc: HO.MAMMO Attending Dr: Basilia Colon MD Ordering Physician: Basilia Colon MDResults: 1Ne gative Date of Service: 07/13/23Follow Up: 1 Year From Orig ina Mammogram Procedure(s): MM tomosynthesis screening BI Accession Number(s): [id number] cc: Basilia Colon MD EXAMINATION: MM SCREENING [...] in OV> 08/09/23 0805 DD/ 1203 TD/TT: Neurocritical Care Physician: Basilia Colon MD IMG BI PROCEDURES Edited Result - Final * Pap Smear (12/29/2022 2:49 PM EST) 12/29/2022 2:49 PM EST 01/03/2023 7:00 AM EST Narrative [facility] - 01/13/2023 4:11 PM EST ----- ------- Name: Serenity Gómez ? Age/Sex: 47/F ? : 1975 Unit#: [id number] ?? Attend Dr: Chalino Benton MD ?Re12/29/22 ?Status: DEP REF ? Location: HO.LNP ?Disch: ? ----- ------- SPEC : [id number] ?RECD: 01/03/23 ? STATUS: ??SOUT ? REQ NUM: [id number] ? AN: 12/29/22-5971 ? SUBM DR: Chalino Benton MD ? ENTERED: ??01/04/23-3034 ?SP TYPE: Pap Smr ?OTHR DR: Basilia [...] 66, 68) ?? HPV testing performed by [facility], [place], [place]. ??See reference laboratory ?? portion of the EMR for entire report. ?Clinical Information LMP: Postmenopausal Previous PAP test: 2021, ASCUS, HPV+ ? Material Received ?? ThinPrep-Cervical Copies To: ?? Basilia Colon MD ?? [address] [facility] ?? [place] [address] ? Chalino Benton MD ?? [address] [place] [address] [address] ?? [place] [address] ?? [phone] ----- ------- Signed (signature on file) MANUEL Uriarte (ASCP) 01/13/23 1611 ? ----- ------- ? END OF REPORT ? Generic External Data Provider LAB CYTOLOGY YEHUDAMary EDWIGE Final Result Performing Organization Address [facility] Co de Phone Number [facility] [address] [place] [phone] * HPV E6/E7 RFLX OLGA 16 18/45 (11/11/2021 3:37 PM EDT) [facility] HPV mRNA E6/E7 rflx Not Detected Not Detected [facility] Comment: Methodology: Ticker Installer-Mediated Amplification This assay detects E6/E7 viral messenger RNA (mRNA) from 14 high-risk HPV types (16,18,31,33,35,39,45,51,52,56,58,59,66,68). Cervical sources are required for HPV testing. If a vaginal source from a patient who has had a total hysterectomy with removal of cervix was submitted, please contact the testing laboratory for alternative testing options. For additional information, please refer to http://education.[employer]/faq/AHC108d9 (This link if provided for information/ educational purposes only.) THIS TEST WAS PERFORMED AT: [facility] [address] [facility] [address] [place], [place] ??[phone] ELIZABETH ANDRES MD 11/11/2021 3:37 PM EDT Chalino Benton MD HISTORICAL/NON ORDERABLE LABS Fi nal Result Performing Organization Address [facility]/ZIP Co de Phone Number [facility] * Hm Colonoscopy (07/08/2021 9:47 AM EDT) Historical Provider HEALTH MAINTENANCE Final Result * HIV 1/2 ANTIGEN/ANTIBODY,FOURTH GENERATION W/RFL (10/17/2020 1:05 PM EDT) Pathologist [facility] HIV-1/2 ANTIGEN AND ANTIBODIES, 4TH GENERATION W/ REFLEX NON-REACT ELENA NON-REACT ELENA [facility] Comment: HIV-1 antigen and HIV-1/HIV-2 [...] ? For additional information please refer to http://education.[employer]/faq/EZR667 (This link is being provided for informational/ educational purposes only.) ? The performance of this assay has not been clinically validated in patients less than 2 years old. ?? 10/17/2020 1:05 PM EDT Basilia Colon MD LAB BLOOD ORDERABLES Fin al Result [facility] Anywhere [address] from Last 3 Months or Most Recently Relevant to Health Maintenance Insurance [facility]SN PARTIAL [facility] Care Teams [employer] Supervisor Relationship Specialty Start Date End Date Basilia Colon MD [address] [place] [phone] PCP - General Family Medicine 12/27/17
--- OUTSIDE RECORDS SUMMARY | 2024-06-05 12:56 | XMS_ITS | Encounter Summary ---
Author Organization [facility] Address [address] [place] [address] 7t [place] [address] Care Team Providers Care Aerosol Line Operator Name Role Phone Basilia Colon MD Primary Care Provider + Encounter Details Date Type Department Care Team (Late Contact Info) Description 11/10/2022 Abstract [facility] [address] [place] [phone] Jannet Yoder Social History Tobacco Use Types [...] Description 06/22/2024 11:45 AM EDT Office Visit [facility] [address] [place] [address] [phone] Basilia Colon MD [address] [place], [place] [phone] documented as of this encounter Procedures Procedure [...] on filedocumented in this encounter Care Teams Aerosol Line Operator Relationship Specialty Start Date End Date Basilia Colon MD [address] [place] [phone] PCP - General Family Medicine 12/27/17 documented as of this encounter
[2024-06-14 10:07] VITALS: BMI 27.3
--- NOTE | 2024-06-26 15:03 | P.CONAN_ITS ---
Documented by User: Mary Ellen Kaur NP 06/26/24 15:04 HPI - Anesthesia Eval Consult details Narrative: 48yo F for Panniculectomy s/p gastric sleeve 2022 with GA-ETT 7 PMFSH Active Problems Active Problems: All Active Problems Excess skin (Acute) Uterine myoma (Acute) Overweight (BMI 25.0-29.9) (Acute) Congenital intra-abdominal adhesions (Acute) Liver fibrosis (Acute) Obesity (Acute) Cholelithiasis (Acute) Obesity (BMI 30-39.9) (Acute) Well woman exam (Acute) S/P laparoscopic sleeve gastrectomy (Acute 10/2022) Nephrolithiasis (Acute) GERD (gastroesophageal reflux disease) (Acute) BENITO III (cervical intraepithelial neoplasia grade III) with severe dysplasia (Acute) Anxiety (Acute) Depression (Acute) Past Medical History Medical History History of vertigo Nephrolithiasis GERD (gastroesophageal reflux disease) Anxiety Depression BMI 39.0-39.9,adult Morbid obesity Right shoulder injury Left lateral epicondylitis Right shoulder tendonitis Carpal tunnel syndrome on both sides Normal vulvar exam Hemorrhoids Diverticulosis Tubular adenoma Encounter for screening colonoscopy Postmenopausal bleeding Well woman exam BENITO III (cervical intraepithelial neoplasia grade III) with severe dysplasia Carpal tunnel syndrome Acute arthritis Seasonal allergic rhinitis Family History Family History Mother HTN (hypertension) A-fib Arthritis Father Diabetes HTN (hypertension) Sister Lupus Surgical History Surgical History 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) Hx of colonoscopy (07/2021) Tubal ligation status History of Problems with Anesthesia: No Social History Social History Household Members: Spouse Housing: House Are you a primary child care center administrator to a significant other at home: No Do you presently have visiting nurse or other home services: No Alcohol intake: current Alcohol intake frequency: does not drink Patient Tobacco Use Status: Never used Tobacco service: No Current occupational status: employed 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 Sexual orientation: Straight/Heterosexual Gender identity: Female Meds Allergies Allergy/AdvReac Type Severity Reaction Status Date / Time No Known Allergies Allergy Verified 06/14/24 10:12 Home Medications ?Medication ?Instructions ?Recorded ?Confirmed ?Last Taken ?Type njvxfdon-gwltktdo-hazd 45 mg-folic 1 cap PO DAILY 05/03/24 06/14/24 06/26/24 History acid 800 mcg-vit K 120 mcg capsule (Bariatric Multivitamins) Exam Height,Weight and Vital Signs: Height 4 ft 11 in Weight 61.235 kg Pertinent Lab Results Pertinent Lab Results: Laboratory Tests 06/05/24 06/26/24 11:20 10:45 WBC 7.4 RBC 4.58 Hgb 13.7 Hct 41.2 MCV 90.0 MCH 29.9 MCHC 33.3 RDW 12.1 Plt Count 235 MPV 10.1 Immature Gran % (Auto) 0.3 Neut % (Auto) 56.7 Lymph % (Auto) 31.8 Trigg % (Auto) 9.6 Eos % (Auto) 1.2 Baso % (Auto) 0.4 Lymph # (Auto) 2.4 Trigg # (Auto) 0.7 Eos # (Auto) 0.1 Baso # (Auto) 0.0 Abs Immat Gran (auto) 0.02 Absolute Neuts (auto) 4.2 Absolute Nucleated RBC 0.000 Nucleated RBC % (auto) 0.0 PT 11.3 INR 1.0 APTT 29.3 Sodium 140 Potassium 4.5 Chloride 106 Carbon Dioxide 30 H Anion Gap 9 L BUN 19 H Creatinine 0.67 Estim Creat Clear Calc TNP Estimated GFR > 60 Random Glucose 89 Calcium 9.1 Total Bilirubin 0.9 AST 21 ALT 11 Alkaline Phosphatase 71 Total Protein 7.8 Albumin 4.2 Blood Type A Positive Antibody Screen NEGATIVE Narrative Narrative: EKG 2022 Vent. Rate : 069 BPM Atrial Rate : 069 BPM P-R Int : 140 ms QRS Dur : 082 ms QT Int : 416 ms P-R-T Axes : 024 006 016 degrees QTc Int : 445 ms Normal sinus rhythm Normal ECG No previous ECGs available Assessment and Plan Assessment Anesthesia Assessment: Chart Reviewed Final Anesthetic Review History of Problems with Anesthesia: No Documented by User: Martha Delarosa MD 06/28/24 10:08 [facility] Past Medical History Medical History History of vertigo Nephrolithiasis GERD (gastroesophageal reflux disease) Anxiety Depression BMI 39.0-39.9,adult Morbid obesity Right shoulder injury Left lateral epicondylitis Right shoulder tendonitis Carpal tunnel syndrome on both sides Normal vulvar exam Hemorrhoids Diverticulosis Tubular adenoma Encounter for screening colonoscopy Postmenopausal bleeding Well woman exam BENITO III (cervical intraepithelial neoplasia grade III) with severe dysplasia Carpal tunnel syndrome Acute arthritis Seasonal allergic rhinitis Family History Family History Mother HTN (hypertension) A-fib Arthritis Father Diabetes HTN (hypertension) Sister Lupus Surgical History Surgical History 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) Hx of colonoscopy (07/2021) Tubal ligation status Social History Social History Household Members: Spouse Housing: House Are you a primary child care center administrator to a significant other at home: No Do you presently have visiting nurse or other home services: No Alcohol intake: current Alcohol intake frequency: does not drink Patient Tobacco Use Status: Never used Tobacco service: No Current occupational status: employed 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 Sexual orientation: Straight/Heterosexual Gender identity: Female Meds Allergies Allergy/AdvReac Type Severity Reaction Status Date / Time No Known Allergies Allergy Verified 06/14/24 10:12 Home Medications ?Medication ?Instructions ?Recorded ?Confirmed ?Last Taken ?Type dctdjgdx-elfbddtx-pkom 45 mg-folic 1 cap PO DAILY 05/03/24 06/14/24 06/26/24 History acid 800 mcg-vit K 120 mcg capsule (Bariatric Multivitamins) Exam Airway Mallampati Class: II TM Dist: >3cm Neck ROM: Full Loose/Missing/Broken Teeth: No Heart: RRR Lungs: CTA Assessment and Plan Assessment Anesthesia Assessment: Anesthesia Plan Discussed Final Anesthetic Review NPO: Yes ASA Class: II Final Preanesthetic Review: Meds/Allgs Chart Reviewed, Consent Obtained/Reviewed and Anes Risks/Benef Reviewed Patient Risk: Low Procedure Risk: Low Anesthetic Plan Anesthetic Plan: GA Disposition: Standard PACU
[2024-06-28] VITALS (10 sets, daily range): BP systolic 135–160; BP diastolic 72–89; PULSE 77–102; RESP 16–20; TEMP 36.4–36.8; O2SAT 95–100
--- NOTE | 2024-06-28 07:39 | P.F2F_ITS ---
Service Date Service Date: 06/28/24 Encounter Date of encounter: 06/28/24 Reasons for Services Signs and symptoms assessed: s/p panniculectomy with drain placement, requires visits 3x/week for wound evaluation, assistance with dressing changes and drain care Reason for longterm: wound care Homebound: Leaving the home is medically contraindicated at this time without the asist of a device and/or another person due th the listed conditions above and below. Reason homebound: unable to drive Certification: Based on the above findings, I certify that this patient is confined to the home and needs intermittent longterm care, physical therapy and/or speech therapy, or continues to need occupational therapy. The patient is under my care, and I have initiated the establishment of the plan of care. The patient will be followed by a physician who will periodically review the plan of care. Time Spent With Patient Time: Total time managing care of this patient today __30__ minutes.
[2024-06-28] MEDS: Lactated Ringers 1,000 ML 100 ML IVCONT (08:33)
--- NOTE | 2024-06-28 09:59 | MHC.SHP ---
Pre-Procedural Eval Section A - 24 Hr Update-Section A only Date of Service: 06/28/24 The patient is an INPATIENT: No The patient has been examined within 24 hours of the surgical procedure. The History & Physical has been completed within 30 days and I have reviewed it.: Yes Section B - Complete if H&P > 30 days Chief Complaint: Excessive and redundant skin and subcutaneous tiss Relevant Family History (Specify if Yes): No Relevant Social History: None Present Medications: None Medical History: No relevant PMH History of Previous Operations: Relevant previous surgery/procedure and date(s) (Laparoscopic sleeve gastrectomy) Allergies: Allergies Allergy/AdvReac Type Severity Reaction Status Date / Time No Known Allergies Allergy Verified 06/14/24 10:12 Review of Systems Sugical H&P ROS: Negative: Constitution, Cardiovascular, Respiratory, Neurological, Psychiatric, Hem-Onc, Allergic/Immunologic, Gastrointestinal, Genitourinary, Musculoskeletal, Integumentary, Endocrine and Eyes/Ears/Nose/Throat Exam Surgical H&P Exam: Normal: HEENT, Normal: Heart, Normal: Lungs, Normal: Extremities, Normal: Abdomen, Normal: Skin and Normal: Neurological Plan Diagnosis/Plan: Unchanged I have reviewed the history and physical and performed a pertinent physical examination on my patient. No changes have occurred unless specified. Time Spent With Patient Time: Total time managing care of this patient today ____ minutes.
--- NOTE | 2024-06-28 10:01 | P.BOP_ITS ---
Brief Operative Note Date of Service: 06/28/24 Pre-op diagnosis: Excess skin Post-op diagnosis: same Procedure: PROCEDURE: Panniculectomy with umbilical transposition and bilateral subcutaneous fat flaps INDICATION: This a 48 year old female who underwent laparoscopic sleeve gastrectomy on 11/02/2022. She had an excellent result achieving a BMI of 27.3 kg/m2 with a total weight loss of 76.6lbs, or 36.2% of her TBWL. As a result, she has developed panniculitis which has not resolved despite continuous use of clotrimazole ointment as well as skin irritation. On exam she has extreme skin laxity due to massive weight loss, with the abdominal pannus completely hanging 4cm below the pubis. Panniculectomy was recommended. We discussed the two options for the panniculectomy of using a combined vertical and horizontal incisions or just a horizontal (bikini) incision. It was my recommendation to do only horizontal incision based on her body habitus and skin laxity. The patient agreed with this. Risks and complications were discussed with the patient including bleeding, infection, umbilical loss, flap necrosis, asymmetry, dehiscence, seroma, VTE. The patient understood the risks and was in agreement to proceed with surgery. PROCEDURE: The incisions were appropriately marked at the preop area with the patient standing and laying down. After induction of general anesthesia a Panda catheter and pneumatic compression devices were placed. The patient was prepped and draped in the usual sterile manner and the incisions were marked again and confirmed. The skin was infiltrated with lidocaine and epinephrine. The #10 blade scalpel w as used for the large incisions and the #15 blade scalpel for the umbilicus. Cautery was used to divide the subcutaneous tissues until the fascia was identified. Then I used the cautery to separate the pannus from the fascia. The inferior incision was made initially and I mobilized the flap for a several centimeters cephalad to the umbilicus. The umbilicus was incised circumferentially and detached from the surrounding tissues all the way to the fascia while its stalk was preserved. With the patient in reflex position I confirmed that the skin flaps were appropriate and would allow for the tissues to come together with reasonable tension. At that point a horizontal incision was made 4 cm above the umbilicus. #10 blade was used for the skin, cautery for the dermis and for the remaining tissues. A subcutaneous fat flap was raised from the upper skin flap in order to fill the space under the skin and support the closure of the two flaps. In addition the inferior flap was mobilized caudally for a few centimeters to create a space for the subcutaneous fat flap as well as relieve tension from the closure. A circumferential incision was made at the area where the umbilicus would be re-implanted. The umbilicus was appropriately oriented and was delivered through the defect and was secured in place with a Dinora. No bleeding was noted anywhere. One MARIALUISA drain was placed from the left corner of the horizontal incision across the wound and was secured in place with a silk suture. The subcutaneous fat flap was secured under the inferior flap with several interrupted 3.0 Monocryl sutures. The two flaps were brought together and were attached at the midline of the horizontal incision with a #3.0 Monocryl suture. At that point the umbilicus was properly oriented and was re-approximated to the skin with 8 interrupted 3.0 Monocryl sutures. In a similar fashion the skin flaps were re-approximated with multiple 3.0 Monocryl sutures. The skin was closed in all incisions and umbilicus with 4.0 Monocryl sutures. Steri-strips, xeroform gauzes and gauzes were used to cover the incisions. An abdominal binder was also placed. The was awaken and was transferred to the recover room in a stable condition. I was present and performed the entire procedure. Ms. Liu was the first sampler. Mekhi Monzon MD, PhD, FACS Surgeon: Roel Monzon MD Surgeon: Roel Monzon MD Anesthesia: GETA and local Was an Elementary School Counselor used for this Procedure?: No Elementary School Counselor: Trinity Liu Estimated blood loss (mL): 10 IV fluids (mL): 1,600 Urine output (mL): 0 (No Panda to record output) Pathology: other (Abdominal pannus) Condition: stable Disposition: PACU
--- NOTE | 2024-06-28 10:04 | PC.NURSE ---
one liter of fluid in preop
== END 2024-06-28 16:30 | disposition home or self-care (01) ==
PROVIDERS: PCP Internal Medicine; Visit Provider Surgery
PROC: 0JB80ZZ Excision of Abdomen Subcutaneous Tissue and Fascia, Open Approach (ICD-10-PCS; CPT 15830; principal; 2024-06-28 10:20)
DX: L98.7 Excessive and redundant skin and subcutaneous tissue (principal); M79.3 Panniculitis, unspecified; E65 Localized adiposity; R63.4 Abnormal weight loss; Z68.27 Body mass index [BMI] 27.0-27.9, adult; K91.2 Postsurgical malabsorption, not elsewhere classified; Z90.3 Acquired absence of stomach [part of]; K59.00 Constipation, unspecified; R11.0 Nausea; Z79.899 Other long term (current) drug therapy; Z98.84 Bariatric surgery status; Z98.51 Tubal ligation status
CPT/HCPCS: 15830; 15847; 36415; 80053; 85025; 85610; 85730; 86850; 86900; 86901; 88304; J0131; J0690; J1100; J1171; J2003; J2004; J2250; J2405; J2704; J3010; J3370

== ENCOUNTER → 2024-06-28 10:20 | Outpatient (BNV) | payer OTHER, SELFPAY | PROVIDERS: PCP Internal Medicine; Visit Provider Physician Assistant Surgical | DX: M79.3 Panniculitis, unspecified (principal); L98.7 Excessive and redundant skin and subcutaneous tissue; Z48.817 Encounter for surgical aftercare following surgery on the skin and subcutaneous tissue | CPT/HCPCS: 15830; G0180 ==

== ENCOUNTER 2024-07-05 12:44 | Outpatient (AMB) | payer OTHER, SELFPAY ==
--- OUTSIDE RECORDS SUMMARY | 2024-07-05 12:46 | XMS_ITS | Clinical Summary ---
Author Organization [facility] [employer] [facility] ity Address [address] [place] [address] Care Team Providers Care Tray Room Worker Name Role Phone Unavailable Primary Care Provider [...]
--- NOTE | 2024-07-05 13:01 | MHC.OFFVISWM ---
VS Expanded 07/05/24 13:29 BP 143/87 H Blood Pressure Location Rt brachial Blood Pressure Position Sitting Pulse 75 Pulse Source Pulse Oximeter Temp 96.8 F Temperature Source Temporal Artery Scan Pulse Oximetry 99 Oxygen Delivery Method Room Air Height 4 ft 11 in Weight 130 lb 12.8 oz BMI 26.4 Body Fat % 30.7 Body Fat Mass 40.2 Fat Free Mass 90.6 Visceral Fat Rating 6.0 Body Water % 9.2 Body Water Mass 64.4 Muscle Mass/Score 86.0 Basal Metabolic Rate/Score 1,233 Intake Visit Reasons: OV Panniculectomy 06/28/24 Desk Lieutenant Required: Yes Desk Lieutenant Services: Desk Lieutenant Present Desk Lieutenant Name: hospital cmi Allergies No Known Allergies Allergy (Verified 07/05/24 13:32) Medication List - Last Reconciled 07/05/24 by TIFFANY Fox cephalexin 500 mg PO Q12H cholecalciferol (vitamin D3) 125 mcg PO DAILY clotrimazole 1% (Antifungal (clotrimazole)) 1 appl topical BID docusate sodium (Colace) 100 mg PO DAILY ejjnffvcndxe-ewh-jeua-FA-vit K 45 mg iron- 800 mcg-120 mcg (Bariatric Multivitamins) 1 cap PO DAILY ondansetron 4 mg PO Q6H PRN sennosides (senna) 17.2 mg (2 x 8.6 mg) PO BEDTIME PRN HPI Comments Details: Patient is a pleasant 48-year-old female who returns to the office today in follow-up. She is status post panniculectomy on 06/28/2024.Patient reports proximally 50 60 mL serous sanguinous fluid from the collection bulb on a daily basis. She continues antibiotics and following the meal plan as directed by Dr. Monzon. She is not wearing the abdominal binder, but rather wearing an other compression garment. It was discussed with the patient that she will need to discuss this with Dr. Monzon. [facility] Medical History History of vertigo Nephrolithiasis GERD (gastroesophageal reflux disease) Anxiety Depression BMI 39.0-39.9,adult Morbid obesity Right shoulder injury Left lateral epicondylitis Right shoulder tendonitis Carpal tunnel syndrome on both sides Normal vulvar exam Hemorrhoids Diverticulosis Tubular adenoma Encounter for screening colonoscopy Postmenopausal bleeding Well woman exam BENITO III (cervical intraepithelial neoplasia grade III) with severe dysplasia Carpal tunnel syndrome Acute arthritis Seasonal allergic rhinitis Surgical History 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) Hx of colonoscopy (07/2021) Tubal ligation status Family History Mother HTN (hypertension) A-fib Arthritis Father Diabetes HTN (hypertension) Sister Lupus Social History Household Members: Spouse Housing: House Are you a primary critical care nurse specialist to a significant other at home: No Do you presently have visiting nurse or other home services: No Alcohol intake: current Alcohol intake frequency: does not drink Patient Tobacco Use Status: Never used Tobacco service: No Current occupational status: employed 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 No evidence of dehiscence or infection. Assessment & Plan Assessment & Plan (1) S/P panniculectomy: Code(s): Z98.890 - Other specified postprocedural states Category: Surgical Plan: Patient was encouraged to discuss with Dr. Monzon her current binder. A new abdominal binder was placed in the office. She will continue to monitor drain output. No walking around the house. Continue antibiotics. Return to clinic 1 week.
[2024-07-05 13:29] VITALS: BP 143/87; PULSE 75; TEMP 36; O2SAT 99; BMI 26.4
== END 2024-07-05 14:00 | disposition home or self-care (01) ==
LOC: HO.HBS 12:44
PROVIDERS: PCP Internal Medicine; Visit Provider Physician Assistant Surgical
DX: Z98.890 Other specified postprocedural states (principal)
CPT/HCPCS: 99024

== ENCOUNTER → 2024-07-05 12:44 | Outpatient (BNVA) | payer OTHER, SELFPAY | PROVIDERS: PCP Internal Medicine; Visit Provider Physician Assistant Surgical | DX: Z48.817 Encounter for surgical aftercare following surgery on the skin and subcutaneous tissue (principal); Z98.890 Other specified postprocedural states | CPT/HCPCS: 99212 ==

== ENCOUNTER 2024-07-12 12:56 | Outpatient (AMB) | payer OTHER, SELFPAY ==
--- NOTE | 2024-07-12 13:08 | MHC.OFFVISWM ---
VS Expanded 07/12/24 13:10 BP 135/76 Blood Pressure Location Rt brachial Blood Pressure Position Sitting Pulse 77 Pulse Source Pulse Oximeter Temp 98.2 F Temperature Source Temporal Artery Scan Pulse Oximetry 99 Oxygen Delivery Method Room Air Intake Visit Reasons: OV Panniculectomy 06/28/24 Allergies No Known Allergies Allergy (Verified 07/12/24 13:11) HPI Comments Details: Patient is a pleasant 48-year-old female who returns to the office today in follow-up. She is status post panniculectomy performed on 06/28/2024. She continues her antibiotics and reports approximately 50-70 mL of serosanguineous fluid from the collection bulb daily. No complaints of pain, continues to follow meal plan as directed by Dr. Monzon. [facility] Medical History History of vertigo Nephrolithiasis GERD (gastroesophageal reflux disease) Anxiety Depression BMI 39.0-39.9,adult Morbid obesity Right shoulder injury Left lateral epicondylitis Right shoulder tendonitis Carpal tunnel syndrome on both sides Normal vulvar exam Hemorrhoids Diverticulosis Tubular adenoma Encounter for screening colonoscopy Postmenopausal bleeding Well woman exam BENITO III (cervical intraepithelial neoplasia grade III) with severe dysplasia Carpal tunnel syndrome Acute arthritis Seasonal allergic rhinitis Surgical History 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) Hx of colonoscopy (07/2021) Tubal ligation status Family History Mother HTN (hypertension) A-fib Arthritis Father Diabetes HTN (hypertension) Sister Lupus Social History Household Members: Spouse Housing: House Are you a primary housekeeper caregiver to a significant other at home: No Do you presently have visiting nurse or other home services: No Alcohol intake: current Alcohol intake frequency: does not drink Patient Tobacco Use Status: Never used Tobacco service: No Current occupational status: employed 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 No evidence of infection. Assessment & Plan Assessment & Plan (1) S/P panniculectomy: Code(s): Z98.890 - Other specified postprocedural states Category: Surgical Plan: Continue antibiotics, meal plan, monitoring drain output, abdominal binder. Return to clinic 1 week
[2024-07-12 13:10] VITALS: BP 135/76; PULSE 77; TEMP 36.8; O2SAT 99
--- OUTSIDE RECORDS SUMMARY | 2024-07-12 15:01 | XMS_ITS | Clinical Summary ---
Author Organization [facility] [employer] [facility] ity Address [address] [place] [address] Care Team Providers Care Crop Roller Name Role Phone Unavailable Primary Care Provider [...]
== END 2024-07-12 13:23 | disposition home or self-care (01) ==
LOC: HO.HBS 12:57
PROVIDERS: PCP Internal Medicine; Visit Provider Physician Assistant Surgical
DX: Z98.890 Other specified postprocedural states (principal)
CPT/HCPCS: 99024

== ENCOUNTER → 2024-07-12 12:56 | Outpatient (BNVA) | payer OTHER, SELFPAY | PROVIDERS: PCP Internal Medicine; Visit Provider Physician Assistant Surgical | DX: Z71.3 Dietary counseling and surveillance (principal); Z98.890 Other specified postprocedural states | CPT/HCPCS: 99212 ==

== ENCOUNTER → 2024-07-18 12:00 | Outpatient (BNV) | payer OTHER, SELFPAY | PROVIDERS: PCP Internal Medicine; Visit Provider Internal Medicine | DX: Z12.31 Encounter for screening mammogram for malignant neoplasm of breast (principal) | CPT/HCPCS: 77063; 77067 ==

== ENCOUNTER 2024-07-18 12:03 | Outpatient (REF) | payer OTHER, SELFPAY ==
--- OUTSIDE RECORDS SUMMARY | 2024-07-18 13:43 | XMS_ITS | Clinical Summary ---
Author Organization [facility] [employer] [facility] ity Address [address] [place] [address] Care Team Providers Care Egg Processing Supervisor Name Role Phone Unavailable Primary Care Provider [...]
== END 2024-07-18 12:04 | disposition home or self-care (01) ==
LOC: HO.MAMMO 12:03
PROVIDERS: PCP Internal Medicine; Visit Provider Internal Medicine
DX: Z12.31 Encounter for screening mammogram for malignant neoplasm of breast (principal)
CPT/HCPCS: 77063; 77067

== ENCOUNTER 2024-07-19 12:57 | Outpatient (AMB) | payer OTHER, SELFPAY ==
--- NOTE | 2024-07-19 13:14 | A.OFFVIS_ITS ---
VS Expanded 07/19/24 13:26 BP 142/66 H Blood Pressure Location Rt brachial Blood Pressure Position Sitting Pulse 75 Pulse Source Pulse Oximeter Temp 98.2 F Temperature Source Temporal Artery Scan Pulse Oximetry 100 Oxygen Delivery Method Room Air Intake Visit Reasons: OV Panniculectomy 06/28/24 Allergies No Known Allergies Allergy (Verified 07/19/24 13:27) HPI Comments Details: Patient is a pleasant 48-year-old female who returns to the office today in follow-up. She is status post panniculectomy performed on 06/28/2024. She continues her antibiotics and reports approximately 20-40 mL of serosanguineous fluid from the collection bulb daily. No complaints of pain, continues to follow meal plan as directed by Dr. Monzon. [facility] Medical History History of vertigo Nephrolithiasis GERD (gastroesophageal reflux disease) Anxiety Depression BMI 39.0-39.9,adult Morbid obesity Right shoulder injury Left lateral epicondylitis Right shoulder tendonitis Carpal tunnel syndrome on both sides Normal vulvar exam Hemorrhoids Diverticulosis Tubular adenoma Encounter for screening colonoscopy Postmenopausal bleeding Well woman exam BENITO III (cervical intraepithelial neoplasia grade III) with severe dysplasia Carpal tunnel syndrome Acute arthritis Seasonal allergic rhinitis Surgical History 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) Hx of colonoscopy (07/2021) Tubal ligation status Family History Mother HTN (hypertension) A-fib Arthritis Father Diabetes HTN (hypertension) Sister Lupus Social History Household Members: Spouse Housing: House Are you a primary career orientation teacher to a significant other at home: No Do you presently have visiting nurse or other home services: No Alcohol intake: current Alcohol intake frequency: does not drink Patient Tobacco Use Status: Never used Tobacco service: No Current occupational status: employed 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 Continues antibiotics, continues her me al plan. She additionally has noticed a proximally 20-40 mL of serosanguineous fluid from the collection bulb. We will continue to monitor this. Likely remove drain once consistently below 20 mL per day. Return to clinic next week
[2024-07-19 13:26] VITALS: BP 142/66; PULSE 75; TEMP 36.8; O2SAT 100
--- OUTSIDE RECORDS SUMMARY | 2024-07-19 15:01 | XMS_ITS | Clinical Summary ---
Author Organization [facility] [facility] ity Address [address] [place] [address] Care Team Providers Care Universal Winding Machine Operator Name Role Phone Unavailable Primary Care [...]
== END 2024-07-19 13:38 | disposition home or self-care (01) ==
LOC: HO.HBS 12:57
PROVIDERS: PCP Internal Medicine; Visit Provider Physician Assistant Surgical
DX: Z98.890 Other specified postprocedural states (principal)
CPT/HCPCS: 99024

== ENCOUNTER → 2024-07-19 12:57 | Outpatient (BNVA) | payer OTHER, SELFPAY | PROVIDERS: PCP Internal Medicine; Visit Provider Physician Assistant Surgical | DX: Z71.3 Dietary counseling and surveillance (principal); Z98.890 Other specified postprocedural states | CPT/HCPCS: 99212 ==

== ENCOUNTER 2024-07-25 15:02 | Outpatient (AMB) | payer OTHER, SELFPAY ==
--- NOTE | 2024-07-25 15:12 | A.OFFVIS_ITS ---
VS Expanded 07/25/24 15:15 BP 155/72 H Blood Pressure Location Rt brachial Blood Pressure Position Sitting Pulse 68 Pulse Source Pulse Oximeter Temp 97.7 F Temperature Source Temporal Artery Scan Pulse Oximetry 100 Oxygen Delivery Method Room Air Intake Visit Reasons: OV Panniculectomy 06/28/24 Allergies No Known Allergies Allergy (Verified 07/25/24 15:15) HPI Comments Details: Patient is a pleasant 48-year-old female who returns to the office today in follow-up. She is status post panniculectomy performed on 06/28/2024. She continues her antibiotics and reports approximately 20-30 mL of serosanguineous fluid from the collection bulb daily. No complaints of pain, continues to follow meal plan as directed by Dr. Monzon. [facility] Medical History (Updated 07/25/24 @ 15:16 by Cathy Saravia CMA) Excess skin History of vertigo Nephrolithiasis GERD (gastroesophageal reflux disease) Anxiety Depression BMI 39.0-39.9,adult Morbid obesity Right shoulder injury Left lateral epicondylitis Right shoulder tendonitis Carpal tunnel syndrome on both sides Normal vulvar exam Hemorrhoids Diverticulosis Tubular adenoma Encounter for screening colonoscopy Postmenopausal bleeding Well woman exam BENITO III (cervical intraepithelial neoplasia grade III) with severe dysplasia Carpal tunnel syndrome Acute arthritis Seasonal allergic rhinitis Surgical History 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) Hx of colonoscopy (07/2021) Tubal ligation status Family History Mother HTN (hypertension) A-fib Arthritis Father Diabetes HTN (hypertension) Sister Lupus Social History Household Members: Spouse Housing: House Are you a primary medicare sales executive to a significant other at home: No Do you presently have visiting nurse or other home services: No Alcohol intake: current Alcohol intake frequency: does not drink Patient Tobacco Use Status: Never used Tobacco service: No Current occupational status: employed 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 Sexual orientation: Straight/Heterosexual Gender identity: Female Female Reproductive History Menstrual Age of Menarche: 10 Physical Exam Const General: cooperative, comfortable and no acute distress Orientation/consciousness: patient oriented x3 GI Other: soft, nontender, nondistended all incisions healing well, tiny area of scab at inferior aspect of umbilicus without drainage/erythema, drain output serous Neuro General: patient oriented x3 Assessment & Plan Assessment & Plan (1) Overweight (BMI 25.0-29.9): Code(s): E66.3 - Overweight Category: Medical (2) S/P laparoscopic sleeve gastrectomy: Onset Date: 10/2022 Code(s): Z98.84 - Bariatric surgery status Category: Surgical Plan Drain output remains too high to remove yet. Pt will continue monitoring output. Continue abx. Continue abdominal binder at all times. RTC 1 week.
[2024-07-25 15:15] VITALS: BP 155/72; PULSE 68; TEMP 36.5; O2SAT 100
--- OUTSIDE RECORDS SUMMARY | 2024-07-25 17:20 | XMS_ITS | Clinical Summary ---
Author Organization [facility] [employer] [facility] ity Address [address] [place] [address] Care Team Providers Care Private Eye Name Role Phone Unavailable Primary Care Provider [...]
== END 2024-07-25 16:11 | disposition home or self-care (01) ==
LOC: HO.HBS 15:02
PROVIDERS: PCP Internal Medicine; Visit Provider Physician Assistant Surgical
DX: E66.3 Overweight (principal); Z98.84 Bariatric surgery status
CPT/HCPCS: 99024

== ENCOUNTER → 2024-07-25 15:02 | Outpatient (BNVA) | payer OTHER, SELFPAY | PROVIDERS: PCP Internal Medicine; Visit Provider Physician Assistant Surgical | DX: E66.3 Overweight (principal); Z98.84 Bariatric surgery status | CPT/HCPCS: 99212 ==

== ENCOUNTER 2024-08-03 13:34 | Outpatient (AMB) | payer OTHER, SELFPAY ==
--- OUTSIDE RECORDS SUMMARY | 2024-08-03 14:03 | XMS_ITS | Clinical Summary ---
Author Organization [facility] [employer] [facility] ity Address [address] [place] [address] Care Team Providers Care President Ergonomic Consulting Name Role Phone Unavailable Primary Care Provider [...]
[2024-08-03 14:16] VITALS: BP 118/77; PULSE 97; TEMP 36.8; O2SAT 99
--- NOTE | 2024-08-03 14:16 | A.OFFVIS_ITS ---
VS Expanded 08/03/24 14:16 BP 118/77 Blood Pressure Location Rt brachial Blood Pressure Position Sitting Pulse 97 Pulse Source Pulse Oximeter Temp 98.2 F Temperature Source Temporal Artery Scan Pulse Oximetry 99 Oxygen Delivery Method Room Air Intake Visit Reasons: OV Panniculectomy 06/28/24 Allergies No Known Allergies Allergy (Verified 07/25/24 15:15) HPI Comments Details: Patient is a pleasant 49-year-old female who returns to the office today in follow-up. She is status post panniculectomy on 06/28/2024. She was last seen in the office last week. However sometime between last week and today, her drain suture became dislodged. The drain itself is still holding suction and the black dot is still within the body. There is an approximate 2 cm of dislodgement. She continues to drain between 20 and 30 mL of serous fluid per day. She had 1 day where it drained approximately 100 however this was after dislodgement of a fat clot. PFSH Medical History (Updated 07/25/24 @ 15:16 by Cathy Saravia CMA) Excess skin History of vertigo Nephrolithiasis GERD (gastroesophageal reflux disease) Anxiety Depression BMI 39.0-39.9,adult Morbid obesity Right shoulder injury Left lateral epicondylitis Right shoulder tendonitis Carpal tunnel syndrome on both sides Normal vulvar exam Hemorrhoids Diverticulosis Tubular adenoma Encounter for screening colonoscopy Postmenopausal bleeding Well woman exam BENITO III (cervical intraepithelial neoplasia grade III) with severe dysplasia Carpal tunnel syndrome Acute arthritis Seasonal allergic rhinitis Surgical History 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) Hx of colonoscopy (07/2021) Tubal ligation status Family History Mother HTN (hypertension) A-fib Arthritis Father Diabetes HTN (hypertension) Sister Lupus Social History Household Members: Spouse Housing: House Are you a primary aged or disabled care worker to a significant other at home: No Do you presently have visiting nurse or other home services: No Alcohol intake: current Alcohol intake frequency: does not drink Patient Tobacco Use Status: Never used Tobacco service: No Current occupational status: employed 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 Assessment & Plan Assessment & Plan (1) S/P laparoscopic sleeve gastrectomy: Onset Date: 10/2022 Code(s): Z98.84 - Bariatric surgery status Category: Surgical Plan: After informed consent, her drain area was prepped in sterile fashion. 3 mL 1% lidocaine with epinephrine was injected. Anesthesia was achieved and a 4-0 nylon suture was used to secure the drain in place. She tolerated the procedure well and was told to be very careful. We will have her return to the office in 1 week.
== END 2024-08-03 14:21 | disposition home or self-care (01) ==
LOC: HO.HBS 13:35
PROVIDERS: PCP Internal Medicine; Visit Provider Physician Assistant Surgical
DX: Z98.84 Bariatric surgery status (principal)
CPT/HCPCS: 99024

== ENCOUNTER → 2024-08-03 13:34 | Outpatient (BNVA) | payer OTHER, SELFPAY | PROVIDERS: PCP Internal Medicine; Visit Provider Physician Assistant Surgical | DX: Z98.84 Bariatric surgery status (principal); K95.89 Other complications of other bariatric procedure | CPT/HCPCS: 99212 ==

== ENCOUNTER 2024-08-13 13:31 | Outpatient (REF) | payer OTHER, SELFPAY | END 2024-08-13 13:32 | disposition home or self-care (01) | LOC: HO.LNP 13:31 | PROVIDERS: PCP Internal Medicine; Visit Provider Physician Assistant Surgical | DX: T81.41XA Infection following a procedure, superficial incisional surgical site, initial encounter (principal); Z98.51 Tubal ligation status; Z79.899 Other long term (current) drug therapy; Y83.8 Other surgical procedures as the cause of abnormal reaction of the patient, or of later complication, without mention of misadventure at the time of the procedure; L03.311 Cellulitis of abdominal wall | CPT/HCPCS: 87070; 87077; 87186; 87205; 99212 ==

== ENCOUNTER 2024-08-13 13:31 | Outpatient (AMB) | payer OTHER, SELFPAY ==
[2024-08-13 13:39] VITALS: BP 138/88; PULSE 82; TEMP 37.4; O2SAT 97
--- NOTE | 2024-08-13 13:39 | MHC.OFFVISWM ---
VS Expanded 08/13/24 13:39 BP 138/88 Blood Pressure Location Rt brachial Blood Pressure Position Sitting Pulse 82 Pulse Source Pulse Oximeter Temp 99.3 F Temperature Source Temporal Artery Scan Pulse Oximetry 97 Oxygen Delivery Method Room Air Intake Visit Reasons: OV Panniculectomy 06/28/24 Allergies No Known Allergies Allergy (Verified 08/13/24 14:05) HPI Comments Details: 49-year-old female presents to the office today. She is status post panniculectomy on 06/28/2024. She states that several days ago she began to feel increased swelling on the right side of her incision. She developed increased redness and there was concern that this started draining today or potentially yesterday, it was not exactly clear. She additionally feels as though there is swelling in the suprapubic area. There was no dressing over the wound upon arriving to the office today. There is a 1 cm incisional dehiscence along the right lateral incision line. There is purulence within the collection bulb and purulence from the opening. She reports that she continues taking her antibiotics as prescribed. She does continue to wear her abdominal binder. Reports a proximally 20-30 mL of drainage from the collection bulb. She was not able to accurately describe when the fluid in the collection bulb changed from serosanguineous to purulent. FOR[facility]LY [facility] Medical History (Updated 07/25/24 @ 15:16 by Cathy Saravia CMA) Excess skin History of vertigo Nephrolithiasis GERD (gastroesophageal reflux disease) Anxiety Depression BMI 39.0-39.9,adult Morbid obesity Right shoulder injury Left lateral epicondylitis Right shoulder tendonitis Carpal tunnel syndrome on both sides Normal vulvar exam Hemorrhoids Diverticulosis Tubular adenoma Encounter for screening colonoscopy Postmenopausal bleeding Well woman exam BENITO III (cervical intraepithelial neoplasia grade III) with severe dysplasia Carpal tunnel syndrome Acute arthritis Seasonal allergic rhinitis Surgical History 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) Hx of colonoscopy (07/2021) Tubal ligation status Family History Mother HTN (hypertension) A-fib Arthritis Father Diabetes HTN (hypertension) Sister Lupus Social History Household Members: Spouse Housing: House Are you a primary child care assistant to a significant other at home: No Do you presently have visiting nurse or other home services: No Alcohol intake: current Alcohol intake frequency: does not drink Patient Tobacco Use Status: Never used Tobacco service: No Current occupational status: employed 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 This was bluntly probed with now an approximate 2.5 cm incisional dehiscence. Purulence was expressed. The wound tracked approximately 9.3 cm medially. It was packed with half-inch gauze and covered with dry clean dressing. Assessment & Plan Assessment & Plan (1) S/P panniculectomy: Code(s): Z98.890 - Other specified postprocedural states Category: Surgical Plan: With incisional cellulitis and abscess, subsequent incisional dehiscence. This has been cultured. We will continue Keflex until culture is known. We will have her return to the office tomorrow for follow-up Orders: Orders Routine Culture w Gram Stain Today Z98.890 - Other specified postprocedural states
--- OUTSIDE RECORDS SUMMARY | 2024-08-13 13:57 | XMS_ITS | Clinical Summary ---
Author Organization [employer] Address [address] [facility] [address] [place] [address] Care Team Providers Care Forge Helper Name Role Phone Basilia Colon MD Primary Care Provider + Allergies No known active allergies Medications tiZANidine (Zanaflex) 4 MG capsuleIndicati ons:Acute pain of right shoulder Take 1 capsule (4 mg) by mouth 3 times daily. 90 capsule 1 03/09/2022 Active ergocalciferol (Vitamin D2) 1.25 MG (93095 UT) capsule TAKE 1 CAPSULE BY MOUTH EVERY WEEK 12 capsule 01/19/2023 Active FLUoxetine (PROzac) 20 MG capsule Take 1 capsule (20 mg) by mouth Once per day. 90 capsule 3 06/22/2024 Active Active Problems Problem Noted Date Diagnosed Date Benign essential HTN 06/22/2024 Overweight (BMI 25.0-29.9) 12/12/2023 Assessment & Plan (12/12/2023 1:25 PM EST): I congratulated her for weight reduction, sp bariatric surgery on 10/2022, currently on regular small portions diet. Discussed re continuing exercise, life style modifications. FU with bariatric surgery. S/P laparoscopic sleeve gastrectomy 12/12/2023 Assessment & Plan (12/12/2023 1:26 PM EST): On 10/2022 at [facility] Screening mammogram for breast cancer 07/01/2023 Assessment [...] Resolved, last PAP was wnl Fu w/ [facility] [employer] [employer] for PAP smear 12/2023 Assessment & Plan (06/16/2022 11:21 AM EDT): PAP smear on 12/03/21 showed NIL/+HPV FU with [facility] [employer] on 11/2022 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 Resolved Problems Problem Noted Date Diagnosed Date Resolved Date Obesity (BMI 30.0-34.9) 12/27/2022 11/0 05/2023 Assessment & Plan (12/27/2022 3:25 PM EST): Status Post bariatric surgery Significant decrease in BMI Continue Multivitamins Iron + zinc supplementation F/u [facility] obesity clinic F/u in 6 mos Morbid obesity 09/03/2011 12/12/2023 Overview (12/12/2023): Sp Laparoscopic sleeve gastrectomy on 11/04/22 at [facility] Assessment & Plan (06/16/2022 11:20 AM EDT): Discussed re weight reduction options including exercise, life style modifications, diet, referral to marketing operations specialist. Discussed re lower calorie intake, increase dietary fiber I gave her information about weight management program for baritric surgery Encounters Date Type Department Care Team Description 07/18/2024 Orders Only [address] [address] Basilia Colon MD 06/28/2024 Orders Only GENERIC EXTERNAL DATA DEPARTMENT Provider, Generic External Data 06/26/2024 Orders Only GENERIC EXTERNAL DATA DEPARTMENT Provider, Generic External Data 06/22/2024 11:45 AM EDT Office Visit [address] [address] Basilia Colon MD Rheumatoid arthritis involving multiple sites with positive rheumatoid factor (CMS/HCC) (Primary Dx); Benign essential HTN; Dietary counseling; Exercise counseling; Overweight 06/22/2024 Travel 06/21/[address] [address] Basilia Colon MD chart prep 06/15/2024 Patient Outreach [address] [address] Basilia Colon MD Pre-visit Planning (SDOH screening positive and tobacco screening negative) 06/05/2024 Orders Only GENERIC EXTERNAL DATA DEPARTMENT Provider, Generic External Data from Last 3 Months Immunizations Immunization Administration Dates Next Due Hep B, adult [...] before you got money to buy more: Sometimes True 2024 Within the past 12 months,th e food you bought just didn't last and you didn't have enough money to get more: Sometimes True 06/15/2024 Transportation Answer Date Recorded In the past [...] Date Recorded Patient Health Questionnaire-2 Score 0 06/22/2024 Internet Access Answer Date Recorded Internet Access Q1 Yes 06/15/2024 Internet Access Q2 Not on file 06/15/2024 Comments No Sex and Gender Information Value Date Recorded Sex Assigned at Female 12/07/2021 10:19 AM EDT Legal Sex Female 10:19 AM EDT Gender Identity Female 12/07/2021 10:19 AM EDT Sexual Orientation Choose not to disclose 2021 10:19 AM EDT Last Filed Vital Signs Vital Sign Reading Time Taken Comments Blood Pressure 140/80 06/22/2024 11:57 AM EDT Pulse 104 06/22/2024 11:29 AM EDT Temperature 36.8 C (98.2 F) 06/22/2024 11:29 AM EDT Respiratory Rate 16 06/22/2024 11:29 AM EDT Oxygen Saturation 99% 12/12/2023 1:05 PM EST Inhaled Oxygen Concentration - - Weight 61.9 kg (136 lb 6 oz) 06/22/2024 11:29 AM EDT Height 152.4 cm (5') 06/22/2024 11:29 AM EDT Body Mass Index 26.63 06/22/2024 11:29 AM EDT Plan of Treatment Health Maintenance Due Date [...] season) 2023 11/07/2020, 10/17/2020 Influenza Vaccine (#1) 2024 , 11/07/2020, 11/03/2010 Alcohol/Substance Use Screening 12/11/2024 12/12/2023 SDOH Screening 06/15/2025 06/15/2024 Depression Screening 06/22/2025 06/22/2024, 06/23/19 25 Disability Screening 06/22/2025 06/22/2024 Tobacco Screening 06/22/2025 06/22/2024 Mammogram 07/18/2025 07/18/2024, 06/2023, 07/07/2022, Additional history exists Colonoscopy 07/08/2026 07/08/2021 Colorectal Cancer Screening 07/08/2026 Cervical Cancer Screening 12/30/2027 HPV/Cotest 12/30/2027 11/11/2021, 0 06/2021, 11/11/2020, Additional history exists Pap Smear 12/30/2027 12/29/2022, 0 06/2020, 11/06/2020 Lipid Panel 02/23/2029 02/24/2024, 07/08, [...] Procedure Name Priority Date/Time Associated Diagnosis Comments BI MAMMOGRAM SCREENING TOMOSYNTHESIS BILATERAL Routine 07/18/2024 12:10 PM EDT GROSS AND MICROSCOPIC LEVEL 3 Routine 06/28/2024 12:08 PM EDT TYPE AND SCREEN Routine 06/26/2024 10:45 AM EDT COMPREHENSIVE METABOLIC PANEL Routine 06/05/2024 11:20 AM EDT APTT Routine 06/05/2024 11:20 AM EDT PROTHROMBIN TIME-INR Routine 06/05/2024 11:20 AM EDT CBC WITH AUTO DIFFERENTIAL Routine 06/05/2024 11:20 AM EDT LIPID PANEL, STANDARD Routine 02/24/2024 8:29 AM EST PAP SMEAR Routine 12/29/2022 2:49 PM EST ZZZ HISTORICAL HPV E6/E7 RFLX OLGA 16 18/45 Routine 11/11/2021 3:37 PM EDT HM COLONOSCOPY Routine 07/08/2021 9:47 AM EDT HIV 1/2 ANTIGEN/ANTIBODY, FOURTH GENERATION W/RFL Routine 10/17/2020 1:05 PM EDT from Last 3 Months or Most Recently Relevant to Health Maintenance Results * BI Mammogram Screening Tomosynthesis Bilateral (07/18/2024 12:10 PM EDT) Anatomical Region Laterality Modality Breast Bilateral Mammography 07/18/2024 12:1 0 PM EDT Narrative 07/27/2024 1:14 PM EDT [facility] [address] [place], [place] [address] Mammography Report Signed Patient: Serenity Gómez MR#: [id number] : 1975 Acct:[id number] Age/Sex: 48 / F ADM Date: 07/18/24 Loc: HO.MAMMO Attending Dr: Basilia Colon MD Ordering Physician: Basilia Colon MD Results: 1Ne gative Date of Service: 07/18/24 Follow Up: 1 Year From Orig ina Mammogram Procedure(s): MM tomosynthesis screening BI Accession Number(s): [id number] cc: Basilia Colon MD EXAMINATION: MM SCREENING DIGITAL BREAST TOMOSYNTHESIS, BILATERAL CLINICAL INFORMATION: Screening. Asymptomatic. COMPARISON: Mammography: Comparison is made with available priors TECHNIQUE: Digital breast mammography with tomosynthesis is performed in both the craniocaudal and mediolateral oblique views along with computer-aided detection (CAD). FINDINGS: The breasts are heterogeneously dense, which may obscure small masses (ACR BI-RADS breast composition Category c). There are no significant masses, abnormal calcifications, or other abnormalities. MM/MM tomosynthesis screening BI IMPRESSION: No mammographic evidence of malignancy. Patient has heterogeneously dense breast tissue in a strong family history of breast cancer. Consider breast MRI screening surveillance. Breast MRI would need to be ordered by the patient's providing clinician. ASSESSMENT: BI-RADS BI-RADS 1 - Negative RECOMMENDATION: Routine annual mammography screening. 1 year F/U This examination should not preclude the clinical evaluation of a suspicious palpable abnormality. This patient's information was entered into a reminder system with a target due date for their next mammogram. Electronically signed by: Edith Grayson DO 07/27/2024 01:11 PM EDT Dictated By: Edith Grayson DO Signed By: <Electronically signed by Edith Grayson DO in OV> 07/27/24 1311 DD/ 1210 TD/TT: 07/18/24 1230 Factory Machine Computer Operator: Procedure Note Donotuseinterpreter, Image - 07/27/2024 [facility] [address] [place] [address] Mammography Report Signed Patient: Serenity Gómez MMR#: [id number] : 1975Acct:[id number] Age/Sex: 48 / FADM Date: 07/18/24 Loc: HO.MAMMO Attending Dr: Basilia Colon MD Ordering Physician: Basilia Colon MDResults: 1Ne gative Date of Service: 07/18/24Follow Up: 1 Year From Orig ina Mammogram Procedure(s): MM tomosynthesis screening BI Accession Number(s): [id number] cc: Basilia Colon MD EXAMINATION: MM SCREENING DIGITAL BREAST TOMOSYNTHESIS, BILATERAL CLINICAL INFORMATION: Screening. Asymptomatic. COMPARISON: Mammography: Comparison is made with available priors TECHNIQUE: Digital breast mammography with tomosynthesis is performed in both the craniocaudal and mediolateral oblique views along with computer-aided detection (CAD). FINDINGS: The breasts are heterogeneously dense, which may obscure small masses (ACR BI-RADS breast composition Category c). There are no significant masses, abnormal calcifications, or other abnormalities. MM/MM tomosynthesis screening BI IMPRESSION: No mammographic evidence of malignancy. Patient has heterogeneously dense breast tissue in a strong family history of breast cancer. Consider breast MRI screening surveillance. Breast MRI would need to be ordered by the patient's providing clinician. ASSESSMENT: BI-RADS BI-RADS 1 - Negative RECOMMENDATION: Routine annual mammography screening. 1 year F/U This examination should not preclude the clinical evaluation of a suspicious palpable abnormality. This patient's information was entered into a reminder system with a target due date for their next mammogram. Electronically signed by: Edith Grayson DO 07/27/2024 01:11 PM EDT Dictated By: Edith Grayson DO Signed By: <Electronically signed by Edith Grayson DO in OV> 07/27/24 1311 DD/ 1210 TD/TT: 07/18/24 1230 Factory Machine Computer Operator: us Basilia Colon MD IMG BI PROCEDURES Final Result * Gross and Microscopic Level 3 (06/28/2024 12:08 PM EDT) 06/28/2024 12:0 8 PM EDT 06/28/2024 2:20 PM EDT [facility] - 06/29/2024 4:30 PM EDT ----- ------- Name: Serenity Gómez Age/Sex: 48/F : 1975 Unit#: [id number] Attend Dr: Roel Monzon MD Re06/28/24 Status: [facility] Location: [facility] Disch: ----- ------- SPEC : [id number] RECD: 06/28/24 STATUS: ANA MARÍA FERRERA NUM: [id number] AN: 06/28/24-[address]: Roel Monzon MD ENTERED: 06/28/245355 SP TYPE: Surgical OTHR DR: Basilia Colon MD ORDERED: Gross Micro L3 Diagnosis Skin and soft tissue, pannus, excision: Skin and unremarkable adipose tissue (weight: 1435 grams). Clinical History Excessive and redundant skin Microscopic Description Microscopic sections reviewed. Material Received Pannus Gross Description Received in formalin labeled pannus is a 41.0 x 22.5 cm ellipse of granados skin and subcutaneous tissue excised to a maximum depth of 3.5 cm. The skin surface displays a central 1.5 cm in diameter through and through defect. No other skin lesions are identified. The specimen weighs 1435 g. Sectioning reveals homogeneous dean-yellow lobular fat with scant granados-white fibrous streaks. No distinct cysts, lesions or nodules are identified. [employer] Specialist sections are submitted in cassettes A1-A3. CEDS IHC S/NG Disclaimer NOTE: Unless otherwise stated, all tissue is formalin-fixed and paraffin-embedded. Some or all of the immunohistochemical tests reported herein may have been developed and their performance characteristics determined by [facility]. They have not been cleared or approved by the U.S. Food and Drug Administration (FDA). However, the FDA has determined that such clearance or approval is not necessary. This laboratory is certified under the Clinical Laboratory Improvement Amendments of 1988 (CLIA) as qualified to perform high complexity clinical laboratory testing. Copies To: Basilia Colon MD [address] [address] CONTINUED ON NEXT PAGE ----- ------- Name: Serenity Gómez Age/Sex: 48/F : 1975 Unit#: [id number] Attend Dr: Roel Monzon MD Re06/28/24 Status: [facility] Location: [facility] Disch: ----- ------- SPEC : [id number] RECD: 06/28/24 STATUS: ANA MARÍA FERRERA NUM: [id number] AN: 06/28/24-[address]: Roel Monzon MD ENTERED: 06/28/24 SP TYPE: Surgical OTHR DR: Basilia Colon MD ORDERED: Gross Micro L3 Copies To: (Continued) Roel Monzon MD [facility] Weight Management Program [address] [place] [phone] ----- ------- Signed (signature on file) Guillermina Wakefield MD 06/29/24 1630 ----- ------- END OF REPORT us Generic External Data Provider LAB CYTOLOGY NATHALIA GIBBONS Final Result [facility] [address] [place] [address] [phone] * Type and screen (06/26/2024 10:45 AM EDT) Blood Type AP [facility] Antibody Screen NEGATIVE [facility] 06/26/2024 10:4 5 AM EDT 06/26/2024 11:00 AM EDT Narrative [facility] - 06/26/2024 11:37 AM EDT witnessed by SmithING:Call Blood Bank (ext. [phone]) to band patient on admission.Type and Screen in effect until 2300 on 06-28-2024 us Generic External Data Provider LAB BLOOD BANK TE ST ORDERABLES Final Result [facility] [address] [place] [address] [phone] * CBC auto differential (06/05/2024 11:20 AM EDT) White Blood Count 7.4 4.8 - 10.8 X10*3/uL [facility] Red Blood Count 4.58 4.20 - 5.50 X10*6/uL [facility] Hemoglobin 13.7 12.0 - 16.0 g/dl [facility] Hematocrit 41.2 37.0 - 47.0 % [facility] Mean Corpuscular Volume 90.0 80.0 - 98.0 fL [facility] Mean Corpuscular Hemoglobin 29.9 27.0 - 33.0 pg [facility] Mean Corpuscular HGB Conc 33.3 31.0 - 35.0 g/dl [facility] Red Cell Distribution Width 12.1 11.0 - 16.0 % [facility] Platelet Count 235 160 - 400 X10*3/uL [facility] Mean Platelet Volume 10.1 9.4 - 12.3 fL [facility] Neutrophils Percent Auto 56.7 45 - 73 % [facility] Imm Gran Pct Auto 0.3 0.0 - 0.4 % [facility] Lymphocytes Percent Auto 31.8 20 - 40 % [facility] Monocytes Percent Auto 9.6 2 - 11 % [facility] Eosinophils Percent Auto 1.2 0 - 4 % [facility] Basophils Percent Auto 0.4 0 - 2 % [facility] NRBC Pct Auto 0.0 0.0 - 0.2 /100WBC [facility] Neutrophils Absolute Auto 4.2 2.0 - 8.3 x10*3/uL [facility] Imm Gran Abs Auto 0.02 0.00 - 0.03 X10*3/uL [facility] Lymphocytes Absolute Auto 2.4 1.2 - 4.9 X10*3/uL [facility] Monocytes Absolute Auto 0.7 0.1 - 1.2 X10*3/uL [facility] Eosinophils Absolute Auto 0.1 0.0 - 0.4 X10*3/uL [facility] Basophils Absolute Auto 0.0 0.0 - 0.2 X10*3/uL [facility] NRBC Abs Auto 0.000 0.0 - 0.012 X10*3/uL [facility] 06/05/2024 11:2 0 AM EDT 06/05/2024 11:20 AM EDT Generic External Data Provider LAB BLOOD ORDERAB LES Final Result Performing Organization Address [facility]/ZIP Co de Phone Number [facility] [address] [place] [phone] * Partial Thromboplastin Time, Activated (APTT) (06/05/2024 11:20 AM EDT) Partial Thromboplastin Time 29.3 26.0 - 36.8 SEC [facility] Comment:For information rega rding the monitoring of direct thrombininhibitors, please refer to Pharmacy. 06/05/2024 11:2 0 AM EDT 06/05/2024 11:20 AM EDT Generic External Data Provider LAB BLOOD ORDERAB LES Final Result Performing Organization Address [facility] Co de Phone Number [facility] [address] [place] [phone] * Prothrombin Time-INR (06/05/2024 11:20 AM EDT) Prothrombin Time 11.3 10.9 - 12.4 SEC [facility] INTERNATIONAL NORM RATIO 1.0 0.9 - 1.1 [facility] Comment:INTERNATIONAL NORMAL IZED RATIO (INR) REFERENCE [...] Provider LAB BLOOD ORDERAB LES Final Result [facility] [address] [place] [address] [phone] * (ABNORMAL) Comprehensive Metabolic Panel (06/05/2024 11:20 AM EDT) Sodium 140 135 - 145 mmol/L [facility] Potassium 4.5 3.3 - 5.1 mmol/L [facility] Chloride 106 96 - 108 mmol/L [facility] Carbon Dioxide 30(H) 22 - 29 mmol/L [facility] Anion Gap 9(L) 12 - 20 [facility] Urea Nitrogen (BUN) 19(H) 9 - 16 mg/dL [facility] Creatinine, Serum 0.67 0.5 - 1.4 mg/dL [facility] Creatinine Clr Calc Pharmacy TNP [facility] Comment:Unable to calculate eCrCL; all parameters not provided. Estimated Glomerular Filt Rate >60 [facility] Comment:Chronic Kidney Disea se: Estimated GFR < 60 mL/min/1.90c0Rgzaki Kidney Disease: Estimated GFR < 15 mL/min/1.73m2 Glucose 89 60 - 115 mg/dL [facility] Calcium 9.1 8.4 - 10.2 mg/dL [facility] Bilirubin, Total 0.9 0.0 - 1.0 mg/dL [facility] Aspartate Amino Transferase 21 5 - 31 U/L [facility] Alanine Aminotransferase 11 0 - 31 U/L [facility] Total Protein 7.8 6.5 - 8.0 g/dL [facility] Albumin Level 4.2 3.5 - 5.0 g/dL [facility] Alkaline Phosphatase 71 39 - 117 U/L [facility] 06/05/2024 11:2 0 AM EDT 06/05/2024 11:20 AM EDT us Generic External Data Provider LAB BLOOD ORDERAB LES Final Result [facility] [address] [place] [phone] * (ABNORMAL) Lipid Panel, Standard (02/24/2024 8:29 AM EST) Triglycerides 61 <150 mg/dL [facility] Comment:Desirable Triglyceri de: less than 150 mg/dLBorderline High Triglyceride 150-199 mg/dLHigh Triglyceride: 200-499 mg/dLVery High Triglyceride: greater than or equal to 5OO mg/dL Cholesterol 187 <200 mg/dL [facility] Comment:Desirable Cholestero l: less than 200 mg/dLBorderline High Cholesterol: 200-239 mg/dLHigh Cholesterol: greater than 239 mg/dL LDL Cholesterol Calculated 110(H) <100 mg/dL [facility] Comment:Desirable LDL: less than 100 mg/dLNear Optimal/Above Optimal LDL: 110- 129 mg/dLBorderline High LDL: 130-159 mg/dLHigh LDL: 160-189 mg/dLVery High LDL: greater than or equal to 190 mg/dL HDL Cholesterol 65 >40 mg/dL [facility] Comment:Desirable HDL: great er than 40 mg/dL Note: This HDL assay may give artificially low results in patients with liver disease. 02/24/2024 8:29 AM EST 02/24/2024 8:29 AM EST us Generic External Data Provider LAB BLOOD ORDERAB LES Final Result [facility] [address] [place] [phone] * Pap Smear (12/29/2022 2:49 PM EST) 12/29/2022 2:49 PM EST 01/03/2023 7:00 AM EST Narrative [facility] - 01/13/2023 4:11 PM EST ----- ------- Name: Serenity Gómez Age/Sex: 47/F : 1975 Unit#: [id number] Attend Dr: Chalino Benton MD Re12/29/22 Status: DEP REF Location: [facility] Disch: ----- ------- SPEC : [id number] RECD: 01/03/23 STATUS: ANA MARÍA REChristophe NUM: [id number] AN: 12/29/[address] [facility] DR: Chalino Benton MD ENTERED: 01/04/237776 SP TYPE: Pap Smr OTHR DR: Basilia Colon MD ORDERED: Pap Smear Interpretation Satisfactory for evaluation. Negative for intraepithelial lesion or malignancy. HPV mRNA E6/E7: NOT DETECTED This assay detects E6/E7 viral messenger RNA (mRNA) from 14 high-risk HPV types (16, 18, 31, 33, 35, 39, 45, 51, 52, 56, 58, 59, 66, 68) HPV testing performed by [employer], [place], [place]. See reference laboratory portion of the EMR for entire report. Clinical Information LMP: Postmenopausal Previous PAP test: 2021, ASCUS, HPV+ Material Received ThinPrep-Cervical Copies To: Basilia Colon MD [address] [place] [address] Chalino Benton MD [address] [place] [address] Dr. T[place] [address] [place] [phone] ----- ------- Signed (signature on file) MANUEL Uriarte (ASCP) 01/13/23 1611 ----- ------- END OF REPORT us Generic External Data Provider LAB CYTOLOGY NATHALIA GIBBONS Final Result [facility] [address] [place] [address] [phone] * HPV E6/E7 RFLX OLGA 16 18/45 (11/11/2021 3:37 PM EDT) HPV mRNA E6/E7 rflx Not Detected Not Detected [facility] Comment: Methodology: Crown Wheel Assembler-Mediated Amplification This assay detects E6/E7 viral messenger RNA (mRNA) from 14 high-risk HPV types (16,18,31,33,35,39,45,51,52,56,58,59,66,68). Cervical sources are required for HPV testing. If a vaginal source from a patient who has had a total hysterectomy with removal of cervix was submitted, please contact the testing laboratory for alternative testing options. For additional information, please refer to http://[employer].1234ENTER/faq/WBX317h2 (This link if provided for information/ educational purposes only.) THIS TEST WAS PERFORMED AT: [facility] [address] [place] [address] [address] [address] ELIZABETH ANDRES MD 11/11/2021 3:37 PM EDT Chalino Benton MD HISTORICAL/NON ORDERABLE LABS Fi nal Result [facility] * Hm Colonoscopy (07/08/2021 9:47 AM EDT) Historical Provider HEALTH MAINTENANCE Final Result * HIV 1/2 ANTIGEN/ANTIBODY,FOURTH GENERATION W/RFL (10/17/2020 1:05 PM EDT) [facility] HIV-1/2 ANTIGEN AND ANTIBODIES, 4TH GENERATION W/ REFLEX NON-REACT ELENA NON-REACT ELENA [facility] Comment: HIV-1 antigen and HIV-1/HIV-2 antibodies were not detected. There is no laboratory evidence of HIV infection. PLEASE NOTE: This information has been disclosed to you from records whose confidentiality may be protected by state law. If your state requires such protection, then the state law prohibits you from making any further disclosure of the information without the specific written consent of the person to whom it pertains, or as otherwise permitted by law. A general authorization for the release of medical or other information is NOT sufficient for this purpose. For additional information please refer to http://[email or web address].MarketYze/faq/QNK496 (This link is being provided for informational/ educational purposes only.) The performance of this assay has not been clinically validated in patients less than 2 years old. 10/17/2020 1:05 PM EDT Basilia Colon MD LAB BLOOD ORDERABLES Fin al Result [facility] [address] from Last 3 Months or Most Recently Relevant to Health Maintenance Insurance [facility] Care Teams Forge Helper Relationship Specialty Start Date End Date Basilia Colon MD [address] [place] [id number] PCP - General Family Medicine 12/27/17 Tommie TERRY 06/29/24
--- OUTSIDE RECORDS SUMMARY | 2024-08-13 13:57 | XMS_ITS | Clinical Summary ---
Author Organization [facility] Address [address] [place] [address] Care Team Providers Care Correspondent Name Role Phone Unavailable Primary Care Provider [...] medications Active Problems No known active problems Social History Tobacco Use Types Packs/Day Years [...] Upcoming Encounters Date Type Department Care Team ([facility] st Contact Info) Description 09/11/2024 4:20 PM EDT Office Visit [facility] [address] [place] [phone] Thaddeus Wright, [facility] [address] [place] [address] Health Maintenance Due Date Last Done Comments Anxiety Screening 1973 Dental FMX/Pano 1973 HPV Screening 1973 Hepatitis C Screening 1973 Pap + HPV 1973 Cervical Cancer Screening [address] Colonography 2018 Colonoscopy 2018 Colorectal Cancer Screening 2018 FIT/gFOBT 2018 Fecal DNA 2018 Flexible Sigmoidoscopy 2018 Breast Cancer Screening (Mammogram) 11/17/2020 11/17/2018 Imm-DTaP/Tdap/Td (2 - Td or Tdap) 01/05/2021 011 Imm-Pneumococcal 50+ (1 of 1 - PCV) 08/01/2023 Imm-Zoster, Recombinant (1 of 2) 08/01/2023 [id number] ( - 2023- season) 2023 Alcohol and Drug Screen 02/08/2024 Depression Annual Screen 02/08/2024 Hypertension Screening (#1) 02/28/2024 Tobacco Screening 08/14/2024 08/15/2023 Imm-Influenza (#1) 2024 11/28/2020, 1 , 11/03/2010 Dental BW 03/14/2025 03/12/2024, 07/0 09/2023, 02/09/2023 [...] Procedure Name Priority Date/Time Associated Diagnosis Comments COMP PERIODONTAL EVALUATION - NEW/EST PATIENT Routine 03/12/2024 3:40 PM EST Encounter for dental examination BITEWINGS - FOUR RADIOGRAPHIC IMAGES Routine 03/12/2024 3:40 PM EST Encounter for dental examination PROPHYLAXIS - ADULT Routine 03/12/2024 3 :40 PM EST Encounter for dental examination PERIODIC ORAL EVALUATION ESTABLISHED PATIENT Routine 03/12/2024 3:40 PM EST Encounter for dental examination from Last 3 Months or Most Recently Relevant to Health Maintenance Insurance [facility]
--- OUTSIDE RECORDS SUMMARY | 2024-08-13 13:57 | XMS_ITS | Clinical Summary ---
Author Organization [facility] ity Address [address] [place] [phone] Care Team Providers Care Geothermal Plant Manager Name Role Phone Unavailable Primary Care [...] 2023-2 5 season) 2023 Influenza Vaccine (#1) 2024 HIB Vaccines Aged Out No longer [...]
== END 2024-08-13 14:11 | disposition home or self-care (01) ==
LOC: HO.HBS 13:32
PROVIDERS: PCP Internal Medicine; Visit Provider Physician Assistant Surgical
DX: Z98.890 Other specified postprocedural states (principal)
CPT/HCPCS: 99024

== ENCOUNTER 2024-08-14 12:46 | Outpatient (AMB) | payer OTHER, SELFPAY ==
--- NOTE | 2024-08-14 12:57 | A.OFFVIS_ITS ---
VS Expanded 08/14/24 13:29 BP 132/86 Blood Pressure Location Rt brachial Blood Pressure Position Sitting Pulse 102 H Pulse Source Pulse Oximeter Temp 99.9 F Temperature Source Temporal Artery Scan Pulse Oximetry 96 Oxygen Delivery Method Room Air Height 4 ft 11 in Weight 130 lb 12.8 oz BMI 26.4 Body Fat % 32.0 Body Fat Mass 41.8 Fat Free Mass 88.8 Visceral Fat Rating 7.0 Body Water % 48.2 Body Water Mass 63.0 Muscle Mass/Score 84.2 Basal Metabolic Rate/Score 1,215 Intake Visit Reasons: OV Panniculectomy 06/28/24 Allergies No Known Allergies Allergy (Verified 08/13/24 14:05) HPI Comments Details: 49-year-old female returns to the office today in follow-up. She is status post panniculectomy on 06/28/2024. She developed an abscess with purulent drainage to the right side of the abdomen. Yesterday the incisional dehiscence was inc reased in size to allow increased drainage. Overnight no fevers. This morning, patient denies any increase in pain. Continued purulent drainage noted. The surgically placed drain was able to be seen within the opening in the right abdomen. As a result the drain was subsequently removed. The wound was packed with quarter-inch iodoform gauze, covered with wet-to-dry dressing and dry clean dressing over top of this. Patient tolerated this well and we will have her return to the office tomorrow [facility] Medical History (Updated 07/25/24 @ 15:16 by Cathy Saravia CMA) Excess skin History of vertigo Nephrolithiasis GERD (gastroesophageal reflux disease) Anxiety Depression BMI 39.0-39.9,adult Morbid obesity Right shoulder injury Left lateral epicondylitis Right shoulder tendonitis Carpal tunnel syndrome on both sides Normal vulvar exam Hemorrhoids Diverticulosis Tubular adenoma Encounter for screening colonoscopy Postmenopausal bleeding Well woman exam BENITO III (cervical intraepithelial neoplasia grade III) with severe dysplasia Carpal tunnel syndrome Acute arthritis Seasonal allergic rhinitis Surgical History 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) Hx of colonoscopy (07/2021) Tubal ligation status Family History Mother HTN (hypertension) A-fib Arthritis Father Diabetes HTN (hypertension) Sister Lupus Social History Household Members: Spouse Housing: House Are you a primary foster care case manager to a significant other at home: No Do you presently have visiting nurse or other home services: No Alcohol intake: current Alcohol intake frequency: does not drink Patient Tobacco Use Status: Never used Tobacco service: No Current occupational status: employed 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 Purulent drainage collection within the bulb. Assessment & Plan Assessment & Plan (1) S/P panniculectomy: Code(s): Z98.890 - Other specified postprocedural states Category: Surgical Plan: Postoperative incisional abscess. Drain was removed. Patient continues on Keflex. Culture from yesterday without obvious growth, final results pending. Continue Keflex. Continue packing. We will have her return to the office tomorrow. Tylenol as needed for pain.
[2024-08-14 13:29] VITALS: BP 132/86; PULSE 102; TEMP 37.7; O2SAT 96; BMI 26.4
--- OUTSIDE RECORDS SUMMARY | 2024-08-14 13:29 | XMS_ITS | Clinical Summary ---
Author Organization [employer] Address [address] [facility] [address] [place] [address] Care Team Providers Care Network Programmer Name Role Phone Basilia Colon MD Primary Care Provider + Allergies No known active allergies Medications tiZANidine (Zanaflex) 4 MG capsuleIndicati ons:Acute pain of right shoulder Take 1 capsule (4 mg) by mouth 3 times daily. 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 Resolved Problems Problem Noted Date Diagnosed Date Resolved Date Obesity (BMI 30.0-34.9) 12/27/2022 11/0 05/2023 Assessment & Plan (12/27/2022 3:25 PM EST): Status Post bariatric surgery Significant decrease in BMI Continue Multivitamins Iron + zinc supplementation F/u [facility] obesity clinic F/u in 6 mos Morbid obesity 09/03/2011 12/12/2023 Overview (12/12/2023): Sp Laparoscopic sleeve gastrectomy on 11/04/22 at [facility] Assessment & Plan (06/16/2022 11:20 AM EDT): Discussed re weight reduction options including exercise, life style modifications, diet, referral to marine cargo specialist. Discussed re lower calorie intake, increase dietary fiber I gave her information about weight management program for baritric surgery Encounters Date Type Department Care Team Description 08/13/2024 Orders Only GENERIC EXTERNAL DATA DEPARTMENT Provider, Generic External Data 07/18/2024 Orders Only [address] [address] Basilia Colon MD 06/28/2024 Orders Only GENERIC EXTERNAL DATA DEPARTMENT Provider, Generic External Data 06/26/2024 Orders Only GENERIC EXTERNAL DATA DEPARTMENT Provider, Generic External Data 06/22/2024 11:45 AM EDT Office Visit [address] [address] Basilia Colon MD Rheumatoid arthritis involving multiple sites with positive rheumatoid factor (CMS/HCC) (Primary Dx); Benign essential HTN; Dietary counseling; Exercise counseling; Overweight 06/22/2024 Travel 06/21/[address] [address] Basilia Colon MD chart prep 06/15/2024 Patient Outreach [address] [address] Basilia Colon MD Pre-visit Planning (SDOH screening [...] the past 12 months, has t he [employer], gas, oil or water company threatened to [...] Procedure Name Priority Date/Time Associated Diagnosis Comments GRAM STAIN RESULT (NON ORDERABLE) Routine 08/13/2024 2:00 PM EDT BI MAMMOGRAM SCREENING TOMOSYNTHESIS BILATERAL Routine 07/18/2024 [...] Recently Relevant to Health Maintenance Results * Gram Stain Result (08/13/2024 2:00 PM EDT) 08/13/2024 2:00 PM EDT 08/13/2024 2:20 PM EDT Comment:Abdomen Narrative [facility] - 08/14/2024 7:45 AM EDT Gram stain results: 3+ polys 4+ red blood cells No organisms seen Routine Culture Culture in progress. Specimen Source: Abdomen us Generic External Data Provider HISTORICAL/NON OR DERABLE LABS Final Result [facility] [address] [place] [address] [phone] * BI Mammogram Screening Tomosynthesis Bilateral (07/18/2024 12:10 PM EDT) Anatomical Region Laterality Modality Breast Bilateral Mammography 07/18/2024 12:1 0 PM EDT Narrative 07/27/2024 1:14 PM EDT [facility] [address] [place] [address] Mammography Report Signed Patient: Serenity Gómez MR#: [id number] : 1975 Acct:[id number] Age/Sex: 48 / F ADM Date: 07/18/24 Loc: HO.MAMMO Attending Dr: Basilia Colon MD Ordering Physician: Basilia Colon MD Results: 1Ne gative Date of Service: 07/18/24 Follow Up: 1 Year From [facility] Mammogram Procedure(s): MM tomosynthesis screening BI Accession Number(s): [id number] cc: Basilia Colon MD EXAMINATION: MM SCREENING [...] Edith Grayson DO 07/27/2024 01:11 PM EDT RP Dictated By: Edith Grayson DO Signed By: <Electronically signed by Edith Grayson DO in OV> 07/27/24 1311 DD/ 1210 TD/TT: 07/18/24 1230 Manager Of Distribution: Procedure Note Donotuseinterpreter, Image - 07/27/20[facility] [address] [place] [address] Mammography Report Signed Patient: Serenity Gómez MMR#: [id number] : 1975Acct:[id number] Age/Sex: 48 / FADM Date: 07/18/24 Loc: HO.MAMMO Attending Dr: Basilia Colon MD Ordering Physician: Basilia Cloon MDResults: 1Ne gative Date of Service: 07/18/24Follow Up: 1 Year From [facility] Mammogram Procedure(s): MM tomosynthesis screening BI Accession Number(s): [id number] cc: Basilia Colon MD EXAMINATION: MM SCREENING [...] Edith Grayson DO 07/27/2024 01:11 PM EDT RP Dictated By: Edith Grayson DO Signed By: <Electronically signed by Edith Grayson DO in OV> 07/27/24 1311 DD/ 1210 TD/TT: 07/18/24 1230 Manager Of Distribution: Basilia Colon MD IMG BI PROCEDURES Final Result * Gross and Microscopic Level 3 (06/28/2024 12:08 PM EDT) 06/28/2024 12:0 8 PM EDT 06/28/2024 2:20 PM EDT [facility] - 06/29/2024 4:30 PM EDT ----- ------- Name: Serenity Gómez Age/Sex: 48/F : 1975 Unit#: [id number] Attend Dr: Roel Monzon MD Re06/28/24 Status: [facility] Location: [facility] Disch: ----- ------- SPEC : [id number] RECD: 06/28/24 STATUS: ANA MARÍA FERRERA NUM: [id number] AN: 06/28/[address]: Roel Monzon MD ENTERED: 06/28/24 [...] distinct cysts, lesions or nodules are identified. Mortgage Accounting Clerk sections are submitted in cassettes A1-A3. CEDS IHC S/NG Disclaimer NOTE: Unless otherwise stated, all tissue is formalin-fixed and paraffin-embedded. Some or all of the immunohistochemical tests reported herein may have been developed and their performance characteristics determined by [facility]. They have not been cleared or approved by the U.S. Food and Drug Administration (FDA). However, the FDA has determined that such clearance or approval is not necessary. This laboratory is certified under the Clinical Laboratory Improvement Amendments of 1988 (CLIA) as qualified to perform high complexity clinical laboratory testing. Copies To: Basilia Colon MD [address] [address] CONTINUED ON NEXT PAGE ----- ------- Name: Serenity Gómez Age/Sex: 48/F : 1975 Unit#: [id number] Attend Dr: Roel Monzon MD Re06/28/24 Status: [facility] [place]: [facility] Disch: ----- ------- SPEC : [id number] RECD: 06/28/24-142 STATUS: ANA MARÍA FERRERA NUM: [id number] AN: 06/28/24-[address] [facility] [address]: Roel Monzon MD ENTERED: 06/28/24-7841 SP TYPE: Surgical OTHR DR: Basilia Colon MD ORDERED: Gross Micro L3 Copies To: (Continued) Roel Monzon MD [facility] Weight Management Program [address] [place] [address] ----- ------- Signed (signature on file) Guillermina Wakefield MD 06/29/24 1630 ----- ------- END OF REPORT Generic External Data Provider LAB CYTOLOGY ORDMary GIBBONS Final Result Performing Organization Address City/[facility]/ZIP Co de Phone Number [facility] [address] [place] [address] [phone] * Type and screen (06/26/2024 10:45 AM EDT) Blood Type AP [facility] Antibody Screen NEGATIVE [facility] 06/26/2024 10:4 5 AM EDT 06/26/2024 11:00 AM EDT Narrative [facility] - 06/26/2024 11:37 AM EDT witnessed by Gerson:Call Blood Bank (ext. [phone]) to band patient on admission.Type and Screen in effect until 2300 on 06-28-2024 Generic External Data Provider LAB BLOOD BANK TE ST ORDERABLES Final Result Performing Organization Address [facility]/ZIP Co de Phone Number [facility] [address] [place] [address] [phone] * CBC auto differential (06/05/2024 11:20 AM EDT) White Blood Count 7.4 4.8 - 10.8 X10*3/uL [facility] Red Blood Count 4.58 4.20 - 5.50 X10*6/uL [facility] Hemoglobin 13.7 12.0 - 16.0 g/dl [facility] Hematocrit 41.2 37.0 - 47.0 % [facility] Mean Corpuscular Volume 90.0 80.0 - 98.[address] [facility] Mean Corpuscular Hemoglobin 29.9 27.0 - 33.[address] [facility] Mean Corpuscular HGB Conc 33.3 31.0 - 35.0 g/dl [facility] Red Cell Distribution Width 12.1 11.0 - 16.0 % [facility] Platelet Count 235 160 - 400 X10*3/uL [facility] Mean Platelet Volume 10.1 9.4 - 12.[address] [facility] Neutrophils Percent Auto 56.7 45 - 73 % [facility] Imm Gran Pct Auto 0.3 0.0 - 0.4 % [facility] Lymphocytes Percent Auto 31.8 20 - 40 % [facility] Monocytes Percent Auto 9.6 2 - 11 % [facility] Eosinophils Percent Auto 1.2 0 - 4 % [facility] Basophils Percent Auto 0.4 0 - 2 % [facility] NRBC Pct Auto 0.0 0.0 - 0.2 /100WBC [facility] Neutrophils Absolute Auto 4.2 2.0 - 8.3 x10*3/uL [facility] Imm Gran Abs Auto 0.02 0.00 - 0.03 X10*3/uL [facility] Lymphocytes Absolute Auto 2.4 1.2 - 4.9 X10*3/uL [facility] Monocytes Absolute Auto 0.7 0.1 - 1.2 X10*3/uL [facility] Eosinophils Absolute Auto 0.1 0.0 - 0.4 X10*3/uL [facility] Basophils Absolute Auto 0.0 0.0 - 0.2 X10*3/uL [facility] NRBC Abs Auto 0.000 0.0 - 0.012 X10*3/uL [facility] 06/05/2024 11:2 0 AM EDT 06/05/2024 11:20 AM EDT us Generic External Data Provider LAB BLOOD ORDERAB LES Final Result [facility] [address] [place] [address] [phone] * Partial Thromboplastin Time, Activated (APTT) (06/05/2024 11:20 AM EDT) Partial Thromboplastin Time 29.3 26.0 - 36.[address] [facility] Comment:For information rega rding the monitoring of direct thrombininhibitors, please refer to Pharmacy. 06/05/2024 11:2 0 AM EDT 06/05/2024 11:20 AM EDT Generic External Data Provider LAB BLOOD ORDERAB LES Final Result Performing Organization Address [facility]/ZIP Co de Phone Number [facility] [address] [place] [phone] * Prothrombin Time-INR (06/05/2024 11:20 AM EDT) Pathologist [facility] Prothrombin Time 11.3 10.9 - 12.[address] [facility] INTERNATIONAL NORM RATIO 1.0 0.9 - 1.[address] [facility] Comment:INTERNATIONAL NORMAL IZED RATIO (INR) [...] 0 AM EDT 06/05/2024 11:20 AM EDT [employer] External Data Provider LAB BLOOD ORDERAB LES Final Result Performing Organization Address [facility] Co de Phone Number [facility] [address] [place] [phone] * (ABNORMAL) Comprehensive Metabolic Panel (06/05/2024 11:20 AM EDT) Sodium 140 135 - 145 mmol/L [facility] Potassium 4.5 3.3 - 5.1 mmol/L [facility] Chloride 106 96 - 108 mmol/L [facility] Carbon Dioxide 30(H) 22 - 29 mmol/L [facility] Anion Gap 9(L) 12 - [address] [facility] Urea Nitrogen (BUN) 19(H) 9 - 16 mg/dL [facility] Creatinine, Serum 0.67 0.5 - 1.4 mg/dL [facility] Creatinine Clr Calc Pharmacy TNP [facility] Comment:Unable to calculate eCrCL; all parameters not provided. Estimated Glomerular Filt Rate >[address] [facility] Comment:Chronic Kidney Disea se: Estimated GFR < 60 mL/min/1.09s2Hxpsjk Kidney Disease: Estimated GFR < 15 mL/min/1.73m2 Glucose 89 60 - 115 mg/dL [facility] Calcium 9.1 8.4 - 10.2 mg/dL [facility] Bilirubin, Total 0.9 0.0 - 1.0 mg/dL [facility] Aspartate Amino Transferase 21 5 - 31 U/L [facility] Alanine Aminotransferase 11 0 - 31 U/L [facility] Total Protein 7.8 6.5 - 8.0 g/dL [facility] Albumin Level 4.2 3.5 - 5.0 g/dL [facility] Alkaline Phosphatase 71 39 - 117 U/L [facility] 06/05/2024 11:2 0 AM EDT 06/05/2024 11:20 AM EDT us Generic External Data Provider LAB BLOOD ORDERAB LES Final Result [facility] [address] [place] [address] [phone] * (ABNORMAL) Lipid Panel, Standard (02/24/2024 8:29 AM EST) Triglycerides 61 <150 mg/dL [facility] Comment:Desirable Triglyceri de: less than 150 mg/dLBorderline High Triglyceride 150-199 mg/dLHigh Triglyceride: 200-499 mg/dLVery High Triglyceride: greater than or equal to 5OO mg/dL Cholesterol 187 <200 mg/dL [facility] Comment:Desirable Cholestero l: less than 200 mg/dLBorderline High Cholesterol: 200-239 mg/dLHigh Cholesterol: greater than 239 mg/dL LDL Cholesterol Calculated 110(H) <100 mg/dL [facility] Comment:Desirable LDL: less than 100 mg/dLNear Optimal/Above Optimal LDL: 110- 129 mg/dLBorderline High LDL: 130-159 mg/dLHigh LDL: 160-189 mg/dLVery High LDL: greater than or equal to 190 mg/dL HDL Cholesterol 65 >40 mg/dL [facility] Comment:Desirable HDL: great er than 40 mg/dL Note: This HDL assay may give artificially low results in patients with liver disease. 02/24/2024 8:29 AM EST 02/24/2024 8:29 AM EST us Generic External Data Provider LAB BLOOD ORDERAB LES Final Result Performing Organization Address City/State/[facility] Co de Phone Number [facility] [address] [place] [phone] * Pap Smear (12/29/2022 2:49 PM EST) 12/29/2022 2:49 PM EST 01/03/2023 7:00 AM EST Narrative [facility] - 01/13/2023 4:11 PM EST ----- ------- Name: Serenity Gómez Age/Sex: 47/F : 1975 Unit#: [id number] Attend Dr: Chalino Benton MD Re12/29/22 Status: DEP REF Location: [facility] Disch: ----- ------- SPEC : [id number] RECD: 01/03/23 STATUS: ANA MARÍA FERRERA NUM: [id number] AN: 12/29/[address] [facility] [address]: Chalino Benton MD ENTERED: 01/04/23 SP TYPE: Pap Smr OTHR DR: Basilia Colon MD ORDERED: Pap Smear Interpretation Satisfactory for evaluation. Negative for intraepithelial lesion or malignancy. HPV mRNA E6/E7: NOT DETECTED This assay detects E6/E7 viral messenger RNA (mRNA) from 14 high-risk HPV types (16, 18, 31, 33, 35, 39, 45, 51, 52, 56, 58, 59, 66, 68) HPV testing performed by [facility], [place], [place]. See reference laboratory portion of the EMR for entire report. Clinical Information LMP: Postmenopausal Previous PAP test: 2021, ASCUS, HPV+ Material Received ThinPrep-Cervical Copies To: Basilia Colon MD [address] [place] [address] Chalino Benton MD [address] [place], [place] [address]Roger [address] [address] ----- ------- Signed (signature on file) MANUEL Uriarte (ASC) 01/13/23 1611 ----- ------- END OF REPORT Generic External Data Provider LAB CYTOLOGY NATHALIA GIBBONS Final Result Performing Organization Address City/[facility]/ZIP Co de Phone Number [facility] [address] [place] [address] [phone] * HPV E6/E7 RFLX OLGA 16 18/45 (11/11/2021 3:37 PM EDT) [facility] HPV mRNA E6/E7 rflx Not Detected Not Detected [facility] Comment: Methodology: Candy Decorator-Mediated Amplification This assay detects E6/E7 viral messenger RNA (mRNA) from 14 high-risk HPV types (16,18,31,33,35,39,45,51,52,56,58,59,66,68). Cervical sources are required for HPV testing. If a vaginal source from a patient who has had a total hysterectomy with removal of cervix was submitted, please contact the testing laboratory for alternative testing options. For additional information, please refer to http://education.[employer]/faq/VBJ492c0 (This link if provided for information/ educational purposes only.) THIS TEST WAS PERFORMED AT: [employer] [address] [place] [address] FLOOR,[place] [address] ELIZABETH ANDRES MD 11/11/2021 3:37 PM EDT Chalino Benton MD HISTORICAL/NON ORDERABLE LABS Fi nal Result Performing Organization Address City/[facility]/ZIP Co de Phone Number [facility] * Hm Colonoscopy (07/08/2021 9:47 AM EDT) Historical Provider HEALTH MAINTENANCE Final Result * HIV 1/2 ANTIGEN/ANTIBODY,FOURTH GENERATION W/RFL (10/17/2020 1:05 PM EDT) HIV-1/2 ANTIGEN AND ANTIBODIES, 4TH GENERATION W/ REFLEX NON-REACT ELENA NON-REACT ELENA [facility] Comment: HIV-1 antigen and HIV-1/HIV-2 [...] purpose. For additional information please refer to http://education.[employer]/faq/JSW786 (This link is being provided for informational/ educational purposes only.) The performance of this assay has not been clinically validated in patients less than 2 years old. 10/17/2020 1:05 PM EDT us Basilia Colon MD LAB BLOOD ORDERABLES Fin al Result [facility] [address] from Last 3 Months or Most Recently Relevant to Health Maintenance Insurance [id number] Care Teams Network Programmer Relationship Specialty Start Date End Date Basilia Colon MD [address] [place] [phone] PCP - General Family Medicine 12/27/17 [facility] 06/29/24
--- OUTSIDE RECORDS SUMMARY | 2024-08-14 13:29 | XMS_ITS | Clinical Summary ---
Author Organization [facility] Address [address] [place] [address] Care Team Providers Care Office Machinery Or Equipment Installer Name Role Phone Unavailable Primary Care Provider [...]
--- OUTSIDE RECORDS SUMMARY | 2024-08-14 13:29 | XMS_ITS | Clinical Summary ---
Author Organization [facility] Address [address] [place] [address] Care Team Providers Care Deck Mechanic Name Role Phone Unavailable Primary Care Provider [...] Upcoming Encounters Date Type Department Care Team ([facility] st Contact Info) Description 09/11/2024 4:20 PM EDT Office Visit [facility] [address] [place] [phone] Thaddeus Wright, [facility] [address] [place] [address] Health Maintenance Due Date Last Done Comments [...] 08/01/2023 Imm-Zoster, Recombinant (1 of 2) 08/01/2023 [id number] ( - 2023- season) 2023 Alcohol and [...] Recently Relevant to Health Maintenance Insurance [facility]
== END 2024-08-14 14:00 | disposition home or self-care (01) ==
LOC: HO.HBS 12:47
PROVIDERS: PCP Internal Medicine; Visit Provider Physician Assistant Surgical
DX: Z98.890 Other specified postprocedural states (principal)
CPT/HCPCS: 99024

== ENCOUNTER → 2024-08-14 12:46 | Outpatient (BNVA) | payer OTHER, SELFPAY | PROVIDERS: PCP Internal Medicine; Visit Provider Physician Assistant Surgical | DX: T81.41XA Infection following a procedure, superficial incisional surgical site, initial encounter (principal); Z98.890 Other specified postprocedural states | CPT/HCPCS: 99212 ==

== ENCOUNTER 2024-08-15 11:59 | Outpatient (AMB) | payer OTHER, SELFPAY ==
[2024-08-15 12:11] VITALS: BP 127/75; PULSE 88; TEMP 36.6; O2SAT 98; BMI 26.5
--- NOTE | 2024-08-15 12:11 | A.OFFVIS_ITS ---
VS Expanded 08/15/24 12:11 BP 127/75 Blood Pressure Location Rt brachial Blood Pressure Position Sitting Pulse 88 Pulse Source Pulse Oximeter Temp 97.8 F Temperature Source Temporal Artery Scan Pulse Oximetry 98 Oxygen Delivery Method Room Air Height 4 ft 11 in Weight 131 lb 6.4 oz BMI 26.5 Body Fat % 31.9 Body Fat Mass 41.8 Fat Free Mass 89.6 Visceral Fat Rating 7.0 Body Water % 48.3 Body Water Mass 63.4 Muscle Mass/Score 84.8 Basal Metabolic Rate/Score 1,222 Intake Visit Reasons: OV Panniculectomy 06/28/24 Allergies No Known Allergies Allergy (Verified 08/15/24 12:13) HPI Comments Details: 49-year-old female returns to the office today in follow-up at our request. She reports less pain. Culture came back staph aureus although much less purulent drainage noted. No further erythema noted at the skin. No warmth. PFSH Medical History (Updated 07/25/24 @ 15:16 by Cathy Saravia CMA) Excess skin History of vertigo Nephrolithiasis GERD (gastroesophageal reflux disease) Anxiety Depression BMI 39.0-39.9,adult Morbid obesity Right shoulder injury Left lateral epicondylitis Right shoulder tendonitis Carpal tunnel syndrome on both sides Normal vulvar exam Hemorrhoids Diverticulosis Tubular adenoma Encounter for screening colonoscopy Postmenopausal bleeding Well woman exam BENITO III (cervical intraepithelial neoplasia grade III) with severe dysplasia Carpal tunnel syndrome Acute arthritis Seasonal allergic rhinitis Surgical History 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) Hx of colonoscopy (07/2021) Tubal ligation status Family History Mother HTN (hypertension) A-fib Arthritis Father Diabetes HTN (hypertension) Sister Lupus Social History Household Members: Spouse Housing: House Are you a primary respiratory care assistant to a significant other at home: No Do you presently have visiting nurse or other home services: No Alcohol intake: current Alcohol intake frequency: does not drink Patient Tobacco Use Status: Never used Tobacco service: No Current occupational status: employed 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 Less purulence. Healthy beefy red tissue noted. Packed with quarter-inch iodoform gauze Assessment & Plan Assessment & Plan (1) S/P panniculectomy: Code(s): Z98.890 - Other specified postprocedural states Category: Surgical Plan: Tolerating daily packing in the office. We will have her return again tomorrow. We will have her seen daily over the weekend and return to the office next week. Continue current antibiotics
--- OUTSIDE RECORDS SUMMARY | 2024-08-15 13:06 | XMS_ITS | Clinical Summary ---
Author Organization [facility] Address [address] [place] [address] Care Team Providers Care Kindergartner Name Role Phone Unavailable Primary Care Provider [...]
--- OUTSIDE RECORDS SUMMARY | 2024-08-15 13:07 | XMS_ITS | Clinical Summary ---
Author Organization [employer] Address [address] [facility] 7[address] [place] [address] Care Team Providers Care Multiskill Operator Name Role Phone Basilia Colon MD Primary Care Provider + Allergies No known active allergies Medications tiZANidine (Zanaflex) 4 MG capsuleIndicati ons:Acute pain of right shoulder Take 1 capsule (4 mg) by mouth 3 times daily. 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 Resolved Problems Problem Noted Date Diagnosed Date Resolved Date Obesity (BMI 30.0-34.9) 12/27/2022 11/0 05/2023 Assessment & Plan (12/27/2022 3:25 PM EST): Status Post bariatric surgery Significant decrease in BMI Continue Multivitamins Iron + zinc supplementation F/u [facility] obesity clinic F/u in 6 mos Morbid obesity 09/03/2011 12/12/2023 Overview (12/12/2023): Sp Laparoscopic sleeve gastrectomy on 11/04/22 at [facility] Assessment & Plan (06/16/2022 11:20 AM EDT): Discussed re weight reduction options including exercise, life style modifications, diet, referral to credit balance specialist. Discussed re lower calorie intake, increase dietary fiber I gave her information about weight management program for baritric surgery Encounters Date Type Department Care Team Description 08/13/2024 Orders Only GENERIC EXTERNAL DATA DEPARTMENT Provider, Generic External Data 07/18/2024 Orders Only [address] [address] Basilia Colon MD 06/28/2024 Orders Only GENERIC EXTERNAL DATA DEPARTMENT Provider, Generic External Data 06/26/2024 Orders Only GENERIC EXTERNAL DATA DEPARTMENT Provider, Generic External Data 06/22/2024 11:45 AM EDT Office Visit [address] [address] Basilia Colon MD Rheumatoid arthritis involving multiple sites with positive rheumatoid factor (CMS/HCC) (Primary Dx); Benign essential HTN; Dietary counseling; Exercise counseling; Overweight 06/22/2024 Travel 06/21/[address] [address] Basilia Colon MD chart prep 06/15/2024 Patient Outreach [address] [address] Basilia Colon MD Pre-visit Planning (SDOH screening [...] the past 12 months, has t he [employer], gas, oil or water company threatened to [...] EDT 08/13/2024 2:20 PM EDT Comment:Abdomen Narrative [facility] - 08/15/2024 8:26 AM EDT Gram stain results: 3+ polys 4+ red blood cells No organisms seen Staphylococcus aureus Quant Org ID 1+ Specimen Source: Abdomen us Generic External Data Provider HISTORICAL/NON OR DERABLE LABS Final Result [facility] [address] [place] [address] [phone] * BI Mammogram Screening Tomosynthesis Bilateral (07/18/2024 12:10 PM EDT) Anatomical Region Laterality Modality Breast Bilateral Mammography 07/18/2024 12:1 0 PM EDT Narrative 07/27/2024 1:14 PM EDT [address] [place] [address] Mammography Report Signed Patient: Serenity Gómez MR#: [id number] : 1975 Acct:[id number] Age/Sex: 48 / F ADM Date: 07/18/24 Loc: HO.MAMMO Attending Dr: Basilia Colon MD Ordering Physician: Basilia Colon MD Results: 1Ne gative Date of Service: 07/18/24 Follow Up: 1 Year From [facility] Mammogram Procedure(s): MM tomosynthesis screening BI Accession Number(s): [id number] cc: Basilia Colon MD EXAMINATION: MM SCREENING [...] 07/27/24 1311 DD/ 1210 TD/TT: 07/18/24 1230 Supervising Floorperson: Procedure Note Donotuseinterpreter, Image - 07/27/2024 [facility] [address] [place] [address] Mammography Report Signed Patient: Serenity Gómez MMR#: [id number] : 1975Acct:[id number] Age/Sex: 48 / FADM Date: 07/18/24 Loc: HO.MAMMO Attending Dr: Basilia Colon MD Ordering Physician: Basilia Colon MDResults: 1Ne gative Date of Service: 07/18/24Follow Up: 1 Year From [facility] Mammogram Procedure(s): MM tomosynthesis screening BI Accession Number(s): [id number] cc: Basilia Colon MD EXAMINATION: MM SCREENING [...] 07/27/24 1311 DD/ 1210 TD/TT: 07/18/24 1230 Supervising Floorperson: Basilia Colon MD IMG BI PROCEDURES Final Result * Gross and Microscopic Level 3 (06/28/2024 12:08 PM EDT) 06/28/2024 12:0 8 PM EDT 06/28/2024 2:20 PM EDT [facility] - 06/29/2024 4:30 PM EDT ----- ------- Name: Serenity Gómez Age/Sex: 48/F : 1975 Unit#: [id number] Attend Dr: Roel Monzon MD Re06/28/[address] [facility] Location: [facility] Disch: ----- ------- SPEC : [id number] RECD: 06/28/24 STATUS: ANA MARÍA FERRERA NUM: [id number] AN: 06/28/[address]: Roel Monzon MD ENTERED: 06/28/24 [...] distinct cysts, lesions or nodules are identified. Supervisor Smoke Control sections are submitted in cassettes A1-A3. CEDS IHC S/NG Disclaimer NOTE: Unless otherwise stated, all tissue is formalin-fixed and paraffin-embedded. Some or all of the immunohistochemical tests reported herein may have been developed and their performance characteristics determined by [facility]. They have not been cleared or approved by the U.S. Food and Drug Administration (FDA). However, the FDA has determined that such clearance or approval is not necessary. This laboratory is certified under the Clinical Laboratory Improvement Amendments of 1988 (CLIA) as qualified to perform high complexity clinical laboratory testing. Copies To: Basilia Colon MD [address] [address] CONTINUED ON NEXT PAGE ----- ------- Name: Serenity Gómez Age/Sex: 48/F : 1975 Unit#: [id number] Attend Dr: Roel Monzon MD Re06/28/24 Status: [facility] Location: [facility] Disch: ----- ------- SPEC : [id number] RECD: 06/28/24-142 STATUS: ANA MARÍA FERRERA NUM: [id number] AN: 06/28/24-12[address] [facility] [address]: Roel Monzon MD ENTERED: 06/28/24-2531 SP TYPE: Surgical OTHR DR: Basilia Colon MD ORDERED: Gross Micro L3 Copies To: (Continued) Roel Monzon MD [facility] Weight Management Program [address] [place] [phone] ----- ------- Signed (signature on file) Guillermina Wakefield MD 06/29/24 1630 ----- ------- END OF REPORT Generic External Data Provider LAB CYTOLOGY ORDE RABDAVID Final Result Performing Organization Address City/[facility]/ZIP Co de Phone Number [facility] [address] [place] [address] [phone] * Type and screen (06/26/2024 10:45 AM EDT) Blood Type AP [facility] Antibody Screen NEGATIVE [facility] 06/26/2024 10:4 5 AM EDT 06/26/2024 11:00 AM EDT Narrative [facility] - 06/26/2024 11:37 AM EDT witnessed by Gerson:Call Blood Bank (ext. [phone]) to band patient on admission.Type and Screen in effect until 2300 on 06-28-2024 Generic External Data Provider LAB BLOOD BANK TE ST ORDERABLES Final Result Performing Organization Address [facility]/ZIP Co de Phone Number [facility] [address] [place] [address] [phone] * CBC auto differential (06/05/2024 11:20 AM EDT) White Blood Count 7.4 4.8 - 10.8 X10*3/uL [facility] Red Blood Count 4.58 4.20 - 5.50 X10*6/uL [facility] Hemoglobin 13.7 12.0 - 16.0 g/dl [facility] Hematocrit 41.2 37.0 - 47.0 % [facility] Mean Corpuscular Volume 90.0 80.0 - 98.0 fL [facility] Mean Corpuscular Hemoglobin 29.9 27.0 - 33.0 pg [facility] Mean Corpuscular HGB Conc 33.3 31.0 - 35.0 g/dl [facility] Red Cell Distribution Width 12.1 11.0 - 16.0 % [facility] Platelet Count 235 160 - 400 X10*3/uL [facility] Mean Platelet Volume 10.1 9.4 - 12.3 fL [facility] Neutrophils Percent Auto 56.7 45 - 73 % [facility] Imm Gran Pct Auto 0.3 0.0 - 0.4 % [facility] Lymphocytes Percent Auto 31.8 20 - 40 % [facility] Monocytes Percent Auto 9.6 2 - 11 % [facility] Eosinophils Percent Auto 1.2 0 - 4 % [facility] Basophils Percent Auto 0.4 0 - 2 % [facility] NRBC Pct Auto 0.0 0.0 - 0.2 /100WBC [facility] Neutrophils Absolute Auto 4.2 2.0 - 8.3 x10*3/uL [facility] Imm Gran Abs Auto 0.02 0.00 - 0.03 X10*3/uL [facility] Lymphocytes Absolute Auto 2.4 1.2 - 4.9 X10*3/uL [facility] Monocytes Absolute Auto 0.7 0.1 - 1.2 X10*3/uL [facility] Eosinophils Absolute Auto 0.1 0.0 - 0.4 X10*3/uL [facility] Basophils Absolute Auto 0.0 0.0 - 0.2 X10*3/uL [facility] NRBC Abs Auto 0.000 0.0 - 0.012 X10*3/uL [facility] 06/05/2024 11:2 0 AM EDT 06/05/2024 11:20 AM EDT us Generic External Data Provider LAB BLOOD ORDERAB LES Final Result [facility] [address] [place] [address] [phone] * Partial Thromboplastin Time, Activated (APTT) (06/05/2024 11:20 AM EDT) Partial Thromboplastin Time 29.3 26.0 - 36.8 SEC [facility] Comment:For information rega rding the monitoring of direct thrombininhibitors, please refer to Pharmacy. 06/05/2024 11:2 0 AM EDT 06/05/2024 11:20 AM EDT Generic External Data Provider LAB BLOOD ORDERAB LES Final Result Performing Organization Address [facility]/ZIP Co de Phone Number [facility] [address] [place] [phone] * Prothrombin Time-INR (06/05/2024 11:20 AM EDT) Prothrombin Time 11.3 10.9 - 12.4 SEC [facility] INTERNATIONAL NORM RATIO 1.0 0.9 - 1.1 [facility] Comment:INTERNATIONAL NORMAL IZED RATIO (INR) [...] 0 AM EDT 06/05/2024 11:20 AM EDT [employer] External Data Provider LAB BLOOD ORDERAB LES Final Result Performing Organization Address [facility] Co de Phone Number [facility] [address] [place] [phone] * (ABNORMAL) Comprehensive Metabolic Panel (06/05/2024 11:20 AM EDT) Sodium 140 135 - 145 mmol/L [facility] Potassium 4.5 3.3 - 5.1 mmol/L [facility] Chloride 106 96 - 108 mmol/L [facility] Carbon Dioxide 30(H) 22 - 29 mmol/L [facility] Anion Gap 9(L) 12 - 20 [facility] Urea Nitrogen (BUN) 19(H) 9 - 16 mg/dL [facility] Creatinine, Serum 0.67 0.5 - 1.4 mg/dL [facility] Creatinine Clr Calc Pharmacy TNP [facility] Comment:Unable to calculate eCrCL; all parameters not provided. Estimated Glomerular Filt Rate >60 [facility] Comment:Chronic Kidney Disea se: Estimated GFR < 60 mL/min/1.79l1Wkgzgb Kidney Disease: Estimated GFR < 15 mL/min/1.73m2 Glucose 89 60 - 115 mg/dL [facility] Calcium 9.1 8.4 - 10.2 mg/dL [facility] Bilirubin, Total 0.9 0.0 - 1.0 mg/dL [facility] Aspartate Amino Transferase 21 5 - 31 U/L [facility] Alanine Aminotransferase 11 0 - 31 U/L [facility] Total Protein 7.8 6.5 - 8.0 g/dL [facility] Albumin Level 4.2 3.5 - 5.0 g/dL [facility] Alkaline Phosphatase 71 39 - 117 U/L [facility] 06/05/2024 11:2 0 AM EDT 06/05/2024 11:20 AM EDT us Generic External Data Provider LAB BLOOD ORDERAB LES Final Result [facility] [address] [place] [address] [phone] * (ABNORMAL) Lipid Panel, Standard (02/24/2024 8:29 AM EST) Triglycerides 61 <150 mg/dL [facility] Comment:Desirable Triglyceri de: less than 150 mg/dLBorderline High Triglyceride 150-199 mg/dLHigh Triglyceride: 200-499 mg/dLVery High Triglyceride: greater than or equal to 5OO mg/dL Cholesterol 187 <200 mg/dL [facility] Comment:Desirable Cholestero l: less than 200 mg/dLBorderline High Cholesterol: 200-239 mg/dLHigh Cholesterol: greater than 239 mg/dL LDL Cholesterol Calculated 110(H) <100 mg/dL [facility] Comment:Desirable LDL: less than 100 mg/dLNear Optimal/Above Optimal LDL: 110- 129 mg/dLBorderline High LDL: 130-159 mg/dLHigh LDL: 160-189 mg/dLVery High LDL: greater than or equal to 190 mg/dL HDL Cholesterol 65 >40 mg/dL [facility] Comment:Desirable HDL: great er than 40 mg/dL Note: This HDL assay may give artificially low results in patients with liver disease. 02/24/2024 8:29 AM EST 02/24/2024 8:29 AM EST us Generic External Data Provider LAB BLOOD ORDERAB LES Final Result Performing Organization Address City/State/[facility] Co de Phone Number [facility] [address] [place] [phone] * Pap Smear (12/29/2022 2:49 PM EST) 12/29/2022 2:49 PM EST 01/03/2023 7:00 AM EST Narrative [facility] - 01/13/2023 4:11 PM EST ----- ------- Name: Serenity Gómez Age/Sex: 47/F : 1975 Unit#: [id number] Attend Dr: Chalino Benton MD Re12/29/22 Status: DEP REF Location: HO.LNP Disch: ----- ------- SPEC : [id number] RECD: 01/03/23 STATUS: ANA MARÍA FERRERA NUM: [id number] AN: 12/29/[address] [facility] [address]: Chalino Benton MD ENTERED: 01/04/23 SP [...] 59, 66, 68) HPV testing performed by [facility], [place], [place]. See reference laboratory portion of the EMR for entire report. Clinical Information LMP: Postmenopausal Previous PAP test: 2021, ASCUS, HPV+ Material Received ThinPrep-Cervical Copies To: Basilia Colon MD [address] [place] [phone] Chalino Benton MD [address] [place], [place] [address]Roger [address] [address] ----- ------- Signed (signature on file) MANUEL Uriarte (ASC) 01/13/23 1611 ----- ------- END OF REPORT Generic External Data Provider LAB CYTOLOGY ORDMary RABDAVID Final Result Performing Organization Address City/[facility]/ZIP Co de Phone Number [facility] [address] [place] [address] [phone] * HPV E6/E7 RFLX OLGA 16 18/45 (11/11/2021 3:37 PM EDT) [facility] HPV mRNA E6/E7 rflx Not Detected Not Detected [facility] Comment: Methodology: [employer] Senior Sergeant-Mediated Amplification This assay detects E6/E7 viral messenger RNA (mRNA) from 14 high-risk HPV types (16,18,31,33,35,39,45,51,52,56,58,59,66,68). Cervical sources are required for HPV testing. If a vaginal source from a patient who has had a total hysterectomy with removal of cervix was submitted, please contact the testing laboratory for alternative testing options. For additional information, please refer to http://education.[employer]/faq/YKB209k8 (This link if provided for information/ educational purposes only.) THIS TEST WAS PERFORMED AT: [facility] [address] [place] [address] [address]LOOR,[place] [address] ELIZABETH ANDRES MD 11/11/2021 3:37 PM EDT Chalino Benton MD HISTORICAL/NON ORDERABLE LABS Fi nal Result Performing Organization Address City/[facility]/ZIP Co de Phone Number [facility] * Hm Colonoscopy (07/08/2021 9:47 AM EDT) Historical Provider HEALTH MAINTENANCE Final Result * HIV 1/2 ANTIGEN/ANTIBODY,FOURTH GENERATION W/RFL (10/17/2020 1:05 PM EDT) HIV-1/2 ANTIGEN AND ANTIBODIES, 4TH GENERATION W/ REFLEX NON-REACT ELENA NON-REACT ELENA [facility] Comment: HIV-1 antigen and HIV-1/HIV-2 [...] purpose. For additional information please refer to http://education.[employer]/faq/TCX485 (This link is being provided for informational/ educational purposes only.) The performance of this assay has not been clinically validated in patients less than 2 years old. 10/17/2020 1:05 PM EDT us Basilia Colon MD LAB BLOOD ORDERABLES Fin al Result [facility] [address] from Last 3 Months or Most Recently Relevant to Health Maintenance Insurance [id number] Care Teams Multiskill Operator Relationship Specialty Start Date End Date Basilia Colon MD [address] [place] [phone] PCP - General Family Medicine 12/27/17 [facility] 06/29/24
== END 2024-08-15 14:51 | disposition home or self-care (01) ==
LOC: HO.HBS 12:00
PROVIDERS: PCP Internal Medicine; Visit Provider Physician Assistant Surgical
DX: Z98.890 Other specified postprocedural states (principal)
CPT/HCPCS: 99024

== ENCOUNTER → 2024-08-15 11:59 | Outpatient (BNVA) | payer OTHER, SELFPAY | PROVIDERS: PCP Internal Medicine; Visit Provider Physician Assistant Surgical | DX: Z98.890 Other specified postprocedural states (principal); T81.41XA Infection following a procedure, superficial incisional surgical site, initial encounter | CPT/HCPCS: 99212 ==

== ENCOUNTER 2024-08-16 13:43 | Outpatient (AMB) | payer OTHER, SELFPAY ==
--- NOTE | 2024-08-16 13:44 | A.OFFVIS_ITS ---
VS Expanded 08/16/24 14:15 BP 150/89 H Blood Pressure Location Rt brachial Blood Pressure Position Sitting Pulse 76 Pulse Source Pulse Oximeter Temp 98.1 F Temperature Source Temporal Artery Scan Pulse Oximetry 100 Oxygen Delivery Method Room Air Height 4 ft 11 in Weight 132 lb 6.4 oz BMI 26.7 Body Fat % 30.7 Body Fat Mass 40.6 Fat Free Mass 91.8 Visceral Fat Rating 6.0 Body Water % 49.3 Body Water Mass 65.2 Muscle Mass/Score 87.0 Basal Metabolic Rate/Score 1,245 Intake Visit Reasons: OV Panniculectomy 06/28/24 Allergies No Known Allergies Allergy (Verified 08/15/24 12:13) HPI Comments Details: 49-year-old female returns to the office today in follow-up. She is status post panniculectomy with subsequent abscess formation. There was incisional dehiscence along the right side of her abdomen. This has been flushed and packed daily in the office. She reports overall feeling improvement. Her culture grew MRSA, sensitive to clindamycin and Bactrim. Patient denies fever, abdominal pain, nausea, vomiting. [facility] Medical History (Updated 07/25/24 @ 15:16 by Cathy Saravia CMA) Excess skin History of vertigo Nephrolithiasis GERD (gastroesophageal reflux disease) Anxiety Depression BMI 39.0-39.9,adult Morbid obesity Right shoulder injury Left lateral epicondylitis Right shoulder tendonitis Carpal tunnel syndrome on both sides Normal vulvar exam Hemorrhoids Diverticulosis Tubular adenoma Encounter for screening colonoscopy Postmenopausal bleeding Well woman exam BENITO III (cervical intraepithelial neoplasia grade III) with severe dysplasia Carpal tunnel syndrome Acute arthritis Seasonal allergic rhinitis Surgical History 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) Hx of colonoscopy (07/2021) Tubal ligation status Family History Mother HTN (hypertension) A-fib Arthritis Father Diabetes HTN (hypertension) Sister Lupus Social History Household Members: Spouse Housing: House Are you a primary foster care case manager to a significant other at home: No Do you presently have visiting nurse or other home services: No Alcohol intake: current Alcohol intake frequency: does not drink Patient Tobacco Use Status: Never used Tobacco service: No Current occupational status: employed 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 Minimal purulence from the left drain site. The area was flushed with 50% hydrogen peroxide then packed with approximately 18 in quarter-inch iodoform packing. Patient tolerated the procedure well. Assessment & Plan Assessment & Plan (1) S/P panniculectomy: Code(s): Z98.890 - Other specified postprocedural states Category: Surgical Plan: Subsequently developed abscess and incisional dehiscence. This likely was due to the disruption of the drain suture and putting the tubing back in the body prior to being seen in the office. Per patient's report, there was never any decrease in suction and the black dot on the tubing remained in the body however she developed an intra-abdominal abscess. Culture grew MRSA. We will discon tinue Keflex and utilize Bactrim DS 1 tab p.o. b.i.d. for 10 days. Continue daily wound care Medications: New sulfamethoxazole-trimethoprim 800-160 mg (Bactrim DS) 1 tab PO BID 20 tabs 0RF 10 days Discontinued cephalexin Discontinued Reason: Doctor's Order 500 mg PO Q12H 60 caps 2RF M79.3 - Panniculitis, unspecified
--- OUTSIDE RECORDS SUMMARY | 2024-08-16 13:47 | XMS_ITS | Clinical Summary ---
Author Organization [facility] Address [address] [place] [address] Care Team Providers Care Dormitory Maid Name Role Phone Unavailable Primary Care Provider [...] Upcoming Encounters Date Type Department Care Team ([facility] st Contact Info) Description 09/11/2024 4:20 PM EDT Office Visit [facility] [address] [place] [phone] Thaddeus Wright, [facility] [address] [place] [address] Health Maintenance Due Date Last Done Comments [...] 08/01/2023 Imm-Zoster, Recombinant (1 of 2) 08/01/2023 [id number] ( - 2023- season) 2023 Alcohol and [...] Recently Relevant to Health Maintenance Insurance [facility]
--- OUTSIDE RECORDS SUMMARY | 2024-08-16 13:47 | XMS_ITS | Clinical Summary ---
Author Organization [employer] Address [address] [facility] [address] [place] [address] Care Team Providers Care Adult Probation Officer Name Role Phone Basilia Colon MD Primary Care Provider + Allergies No known active allergies Medications tiZANidine (Zanaflex) 4 MG capsuleIndicati ons:Acute pain of right shoulder Take 1 capsule (4 mg) by mouth 3 times daily. 90 capsule 1 03/09/2022 Active ergocalciferol (Vitamin D2) 1.25 MG (20002 UT) capsule TAKE 1 CAPSULE BY MOUTH [...] (12/12/2023 1:26 PM EST): On 10/2022 at [facility] Screening mammogram for breast cancer 07/01/2023 Assessment [...] Resolved, last PAP was wnl Fu w/ LONG TERM CARE PHLEBOTOMIST for PAP smear 12/2023 Assessment & Plan (06/16/2022 11:21 AM EDT): PAP smear on 12/03/21 showed NIL/+HPV FU with LONG TERM CARE PHLEBOTOMIST on 11/2022 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 Resolved Problems Problem Noted Date Diagnosed Date Resolved Date Obesity (BMI 30.0-34.9) 12/27/2022 11/0 05/2023 Assessment & Plan (12/27/2022 3:25 PM EST): Status Post bariatric surgery Significant decrease in BMI Continue Multivitamins Iron + zinc supplementation F/u [facility] obesity clinic F/u in 6 mos Morbid obesity 09/03/2011 12/12/2023 Overview (12/12/2023): Sp Laparoscopic sleeve gastrectomy on 11/04/22 at [facility] Assessment & Plan (06/16/2022 11:20 AM EDT): Discussed re weight reduction options including exercise, life style modifications, diet, referral to customer management specialist. Discussed re lower calorie intake, increase dietary fiber I gave her information about weight management program for baritric surgery Encounters Date Type Department Care Team Description 08/13/2024 Orders Only GENERIC EXTERNAL DATA DEPARTMENT Provider, Generic External Data 07/18/2024 Orders Only [address] [address] Basilia Colon MD 06/28/2024 Orders Only GENERIC EXTERNAL DATA DEPARTMENT Provider, Generic External Data 06/26/2024 Orders Only GENERIC EXTERNAL DATA DEPARTMENT Provider, Generic External Data 06/22/2024 11:45 AM EDT Office Visit [address] [address] Basilia Colon MD Rheumatoid arthritis involving multiple sites with positive rheumatoid factor (CMS/HCC) (Primary Dx); Benign essential HTN; Dietary counseling; Exercise counseling; Overweight 06/22/2024 Travel 06/21/[address] [address] Basilia Colon MD chart prep 06/15/2024 Patient Outreach [address] [address] Basilia Colon MD Pre-visit Planning (SDOH screening [...] the past 12 months, has t he [employer], gas, oil or water company threatened to [...] EDT 08/13/2024 2:20 PM EDT Comment:Abdomen Narrative [facility] - 08/16/2024 8:01 AM EDT Gram stain results: 3+ polys 4+ red blood cells No organisms seen Methicillin Res Staph Aureus Quant Org ID 1+ Methicillin Res Staph Aureus: Clindamycin <=0.25(S) Methicillin Res Staph Aureus: Erythromycin >=8(R) Methicillin Res Staph Aureus: Oxacillin >=4(R) Methicillin Res Staph Aureus: Penicillin-G >=0.5(R) Methicillin Res Staph Aureus: Tetracycline >=16(R) Methicillin Res Staph Aureus: Trimethoprim/Sulfamethoxazole <=10(S) Methicillin Res Staph Aureus: Vancomycin <=0.5(S) Specimen Source: Abdomen us Generic External Data Provider HISTORICAL/NON OR DERABLE LABS Final Result Performing Organization Address City/State/[facility] Co de Phone Number [facility] [address] [place] [phone] * BI Mammogram Screening Tomosynthesis Bilateral (07/18/2024 12:10 PM EDT) Anatomical Region Laterality Modality Breast Bilateral Mammography 07/18/2024 12:1 0 PM EDT Narrative 07/27/2024 1:14 PM EDT [address] [place] [address] Mammography Report Signed Patient: Serenity Gómez MR#: [id number] : 1975 Acct:[id number] Age/Sex: 48 / F ADM Date: 07/18/24 Loc: HO.MAMMO Attending Dr: Basilia Colon MD Ordering Physician: Basilia Colon MD Results: 1Ne gative Date of Service: 07/18/24 Follow Up: 1 Year From Orig ina Mammogram Procedure(s): MM tomosynthesis screening BI Accession Number(s): [id number] cc: Basilia Colon MD EXAMINATION: MM SCREENING [...] 07/27/24 1311 DD/ 1210 TD/TT: 07/18/24 1230 Lasting Machine Operator Hand Method: Procedure Note Donotuseinterpreter, Image - 07/27/2024 [facility] [address] [place] [address] Mammography Report Signed Patient: Serenity Gómez [facility]#: [id number] : 1975Acct:[id number] Age/Sex: 48 / FADM Date: 07/18/24 Loc: HAMZAHO Attending Dr: Basilia Colon MD Ordering Physician: Basilia Colon MDResults: 1Ne gative Date of Service: 07/18/24Follow Up: 1 Year From Orig inal Mammogram Procedure(s): MM tomosynthesis screening BI Accession Number(s): [id number] cc: Basilia Colon MD EXAMINATION: MM SCREENING [...] 07/27/24 1311 DD/ 1210 TD/TT: 07/18/24 1230 Lasting Machine Operator Hand Method: Basiila Colon MD IM BI PROCEDURES Final Result * Gross and Microscopic Level 3 (06/28/2024 12:08 PM EDT) 06/28/2024 12:0 8 PM EDT 06/28/2024 2:20 PM EDT [facility] - 06/29/2024 4:30 PM EDT ----- ------- Name: Serenity Gómez Age/Sex: 48/F : 1975 [id number]#: [id number] Attend Dr: Roel Monzon MD Re06/28/[address] [facility] Location: [facility] Disch: ----- ------- SPEC : [id number] RECD: 06/28/24-1420 STATUS: [facility] NUM: [id number] AN: 06/28/24-[address]: Roel Monzon MD ENTERED: 06/28/24-1437 SP TYPE: Surgical OTHR DR: Basilia Colon [...] distinct cysts, lesions or nodules are identified. Radioisotope Production Operator sections are submitted in cassettes A1-A3. CEDS IHC S/NG Disclaimer NOTE: Unless otherwise stated, all tissue is formalin-fixed and paraffin-embedded. Some or all of the immunohistochemical tests reported herein may have been developed and their performance characteristics determined by [facility]. They have not been cleared or approved by the U.S. Food and Drug Administration (FDA). However, the FDA has determined that such clearance or approval is not necessary. This laboratory is certified under the Clinical Laboratory Improvement Amendments of 1988 (CLIA) as qualified to perform high complexity clinical laboratory testing. Copies To: Basilia Colon MD [address] [address] CONTINUED ON NEXT PAGE ----- ------- Name: BarreraSerenity Kaiser Age/Sex: 48/F : 1975 Unit#: [id number] Attend Dr: Roel Monzon MD Re06/28/24 Status: [facility] Location: [facility] Disch: ----- ------- SPEC : [id number] RECD: 06/28/24-1420 STATUS: [facility] NUM: [id number] AN: 06/28/24-[address]: Roel Monzon MD ENTERED: 06/28/24-3960 SP TYPE: Surgical OTHR DR: Basilia Colon MD ORDERED: Gross Micro L3 Copies To: (Continued) Roel Monzon MD [facility] Weight Management Program [address] [place] [address] ----- ------- Signed (signature on file) Guillermina Wakefield MD 06/29/24 1630 ----- ------- END OF REPORT Generic External Data Provider LAB CYTOLOGY ORDMary GIBBONS Final Result Performing Organization Address [facility]/ZIP Co de Phone Number [facility] [address] [place] [address] [phone] * Type and screen (06/26/2024 10:45 AM EDT) Blood Type AP [facility] Antibody Screen NEGATIVE [facility] 06/26/2024 10:4 5 AM EDT 06/26/2024 11:00 AM EDT Narrative [facility] - 06/26/2024 11:37 AM EDT witnessed by SmithING:Call Blood Bank (ext. [phone]) to band patient on admission.Type and Screen in effect until 2300 on 06-28-2024 Generic External Data Provider LAB BLOOD BANK TE ST ORDERABLES Final Result Performing Organization Address [facility]/ZIP Co de Phone Number [facility] [address] [place] [address] [phone] * CBC auto differential (06/05/2024 11:20 AM EDT) White Blood Count 7.4 4.8 - 10.8 X10*3/uL [facility] Red Blood Count 4.58 4.20 - 5.50 X10*6/uL [facility] Hemoglobin 13.7 12.0 - 16.0 g/dl [facility] Hematocrit 41.2 37.0 - 47.0 % [facility] Mean Corpuscular Volume 90.0 80.0 - 98.0 fL [facility] Mean Corpuscular Hemoglobin 29.9 27.0 - 33.0 pg [facility] Mean Corpuscular HGB Conc 33.3 31.0 - 35.0 g/dl [facility] Red Cell Distribution Width 12.1 11.0 - 16.0 % [facility] Platelet Count 235 160 - 400 X10*3/uL [facility] Mean Platelet Volume 10.1 9.4 - 12.3 fL [facility] Neutrophils Percent Auto 56.7 45 - 73 % [facility] Imm Gran Pct Auto 0.3 0.0 - 0.4 % [facility] Lymphocytes Percent Auto 31.8 20 - 40 % [facility] Monocytes Percent Auto 9.6 2 - 11 % [facility] Eosinophils Percent Auto 1.2 0 - 4 % [facility] Basophils Percent Auto 0.4 0 - 2 % [facility] NRBC Pct Auto 0.0 0.0 - 0.2 /100WBC [facility] Neutrophils Absolute Auto 4.2 2.0 - 8.3 x10*3/uL [facility] Imm Gran Abs Auto 0.02 0.00 - 0.03 X10*3/uL [facility] Lymphocytes Absolute Auto 2.4 1.2 - 4.9 X10*3/uL [facility] Monocytes Absolute Auto 0.7 0.1 - 1.2 X10*3/uL [facility] Eosinophils Absolute Auto 0.1 0.0 - 0.4 X10*3/uL [facility] Basophils Absolute Auto 0.0 0.0 - 0.2 X10*3/uL [facility] NRBC Abs Auto 0.000 0.0 - 0.012 X10*3/uL [facility] 06/05/2024 11:2 0 AM EDT 06/05/2024 11:20 AM EDT Generic External Data Provider LAB BLOOD ORDERAB LES Final Result Performing Organization Address [facility] Co de Phone Number [facility] [address] [place] [phone] * Partial Thromboplastin Time, Activated (APTT) (06/05/2024 11:20 AM EDT) Partial Thromboplastin Time 29.3 26.0 - 36.8 SEC [facility] Comment:For information rega rding the monitoring of direct thrombininhibitors, please refer to Pharmacy. 06/05/2024 11:2 0 AM EDT 06/05/2024 11:20 AM EDT Generic External Data Provider LAB BLOOD ORDERAB LES Final Result Performing Organization Address [facility] Co de Phone Number [facility] [address] [place] [phone] * Prothrombin Time-INR (06/05/2024 11:20 AM EDT) Prothrombin Time 11.3 10.9 - 12.4 SEC [facility] INTERNATIONAL NORM RATIO 1.0 0.9 - 1.1 [facility] Comment:INTERNATIONAL NORMAL IZED RATIO (INR) REFERENCE [...] ORDERAB LES Final Result Performing Organization Address City/[facility]/ZIP Co de Phone Number [facility] [address] [place] [phone] * (ABNORMAL) Comprehensive Metabolic Panel (06/05/2024 11:20 AM EDT) Sodium 140 135 - 145 mmol/L [facility] Potassium 4.5 3.3 - 5.1 mmol/L [facility] Chloride 106 96 - 108 mmol/L [facility] Carbon Dioxide 30(H) 22 - 29 mmol/L [facility] Anion Gap 9(L) 12 - 20 [facility] Urea Nitrogen (BUN) 19(H) 9 - 16 mg/dL [facility] Creatinine, Serum 0.67 0.5 - 1.4 mg/dL [facility] Creatinine Clr Calc Pharmacy TNP [facility] Comment:Unable to calculate eCrCL; all parameters not provided. Estimated Glomerular Filt Rate >60 [facility] Comment:Chronic Kidney Disea se: Estimated GFR < 60 mL/min/1.15x6Sszpkx Kidney Disease: Estimated GFR < 15 mL/min/1.73m2 Glucose 89 60 - 115 mg/dL [facility] Calcium 9.1 8.4 - 10.2 mg/dL [facility] Bilirubin, Total 0.9 0.0 - 1.0 mg/dL [facility] Aspartate Amino Transferase 21 5 - 31 U/L [facility] Alanine Aminotransferase 11 0 - 31 U/L [facility] Total Protein 7.8 6.5 - 8.0 g/dL [facility] Albumin Level 4.2 3.5 - 5.0 g/dL [facility] Alkaline Phosphatase 71 39 - 117 U/L [facility] 06/05/2024 11:2 0 AM EDT 06/05/2024 11:20 AM EDT us Generic External Data Provider LAB BLOOD ORDERAB LES Final Result Performing Organization Address City/[facility]/ZIP Co de Phone Number [facility] [address] [place] [phone] * (ABNORMAL) Lipid Panel, Standard (02/24/2024 8:29 AM EST) Triglycerides 61 <150 mg/dL [facility] Comment:Desirable Triglyceri de: less than 150 mg/dLBorderline High Triglyceride 150-199 mg/dLHigh Triglyceride: 200-499 mg/dLVery High Triglyceride: greater than or equal to 5OO mg/dL Cholesterol 187 <200 mg/dL [facility] Comment:Desirable Cholestero l: less than 200 mg/dLBorderline High Cholesterol: 200-239 mg/dLHigh Cholesterol: greater than 239 mg/dL LDL Cholesterol Calculated 110(H) <100 mg/dL [facility] Comment:Desirable LDL: less than 100 mg/dLNear [...] Provider LAB BLOOD ORDERAB LES Final Result [facility] [address] [place] [phone] * Pap Smear (12/29/2022 2:49 PM EST) 12/29/2022 2:49 PM EST 01/03/2023 7:00 AM EST Narrative [facility] - 01/13/2023 4:11 PM EST ----- ------- Name: Serenity Gómez Age/Sex: 47/F : 1975 Unit#: [id number] Attend Dr: Chalino Benton MD Re12/29/22 Status: [facility] REF Location: [facility] Disch: ----- ------- SPEC : [id number] RECD: 01/03/23-699 STATUS: [employer] [facility]AN NUM: [id number] AN: 12/29/22-1449 [facility] DR: Chalino Benton MD ENTERED: 01/04/23-1316 SP TYPE: Pap Smr OTHR DR: Basilia Colon MD ORDERED: Pap Smear Interpretation Satisfactory for evaluation. Negative for intraepithelial lesion or malignancy. HPV mRNA E6/E7: NOT DETECTED This assay detects E6/E7 viral messenger RNA (mRNA) from 14 high-risk HPV types (16, 18, 31, 33, 35, 39, 45, 51, 52, 56, 58, 59, 66, 68) HPV testing performed by [facility], [place], [place]. See reference laboratory portion of the EMR for entire report. Clinical Information LMP: Postmenopausal Previous PAP test: 2021, ASCUS, HPV+ Material Received ThinPrep-Cervical Copies To: Basilia Colon MD [address] [place] [address] [phone] Chalino Benton MD [address] [place] [address] [address] ----- ------- Signed (signature on file) MANUEL Uriarte (ASCP) 01/13/23 1611 ----- ------- END OF REPORT us Generic External Data Provider LAB CYTOLOGY NATHALIA GIBBONS Final Result [facility] [address] [place] [phone] * HPV E6/E7 RFLX OLGA 16 18/45 (11/11/2021 3:37 PM EDT) [facility] HPV mRNA E6/E7 rflx Not Detected Not Detected [facility] Comment: Methodology: Medicaid Specialist-Mediated Amplification This assay detects E6/E7 viral messenger RNA (mRNA) from 14 high-risk HPV types (16,18,31,33,35,39,45,51,52,56,58,59,66,68). Cervical sources are required for HPV testing. If a vaginal source from a patient who has had a total hysterectomy with removal of cervix was submitted, please contact the testing laboratory for alternative testing options. For additional information, please refer to http://education.[employer]/faq/RMG588e3 (This link if provided for information/ educational purposes only.) THIS TEST WAS PERFORMED AT: [facility] [address] [place] [address],[place] [address] ELIZABETH ANDRES MD 11/11/2021 3:37 PM EDT us Chalino Benton MD HISTORICAL/NON ORDERABLE LABS Fi nal Result [facility] * Hm Colonoscopy (07/08/2021 9:47 AM EDT) Historical Provider HEALTH MAINTENANCE Final Result * HIV 1/2 ANTIGEN/ANTIBODY,FOURTH GENERATION W/RFL (10/17/2020 1:05 PM EDT) Pathologist [facility] HIV-1/2 ANTIGEN AND ANTIBODIES, 4TH GENERATION W/ [...] purpose. For additional information please refer to http://education.[employer]/faq/QMN358 (This link is being provided for informational/ educational purposes only.) The performance of this assay has not been clinically validated in patients less than 2 years old. 10/17/2020 1:05 PM EDT us Basilia Colon MD LAB BLOOD ORDERABLES Fin al Result [facility] [address] from Last 3 Months or Most Recently Relevant to Health Maintenance Insurance [employer] [facility] Care Teams Adult Probation Officer Relationship Specialty Start Date End Date Basilia Colon MD [address] [place] [phone] PCP - General Family Medicine 12/27/17 Tommie A 06/29/24
--- OUTSIDE RECORDS SUMMARY | 2024-08-16 13:47 | XMS_ITS | Clinical Summary ---
Author Organization [facility] Address [address] [place] [address] Care Team Providers Care Transfill Technician Name Role Phone Unavailable Primary Care Provider [...]
[2024-08-16 14:15] VITALS: BP 150/89; PULSE 76; TEMP 36.7; O2SAT 100; BMI 26.7
== END 2024-08-16 14:28 | disposition home or self-care (01) ==
LOC: HO.HBS 13:44
PROVIDERS: PCP Internal Medicine; Visit Provider Physician Assistant Surgical
DX: Z98.890 Other specified postprocedural states (principal)
CPT/HCPCS: 99024

== ENCOUNTER → 2024-08-16 13:43 | Outpatient (BNVA) | payer OTHER, SELFPAY | PROVIDERS: PCP Internal Medicine; Visit Provider Physician Assistant Surgical | DX: Z98.890 Other specified postprocedural states (principal); T81.41XA Infection following a procedure, superficial incisional surgical site, initial encounter | CPT/HCPCS: 99212 ==

== ENCOUNTER 2024-08-17 11:07 | Outpatient (AMB) | payer OTHER, SELFPAY ==
--- NOTE | 2024-08-17 11:20 | MHC.OFFVISWM ---
VS Expanded 08/17/24 13:03 BP 129/79 Blood Pressure Location Rt brachial Blood Pressure Position Sitting Pulse 71 Pulse Source Pulse Oximeter Temp 97.6 F Temperature Source Temporal Artery Scan Pulse Oximetry 98 Oxygen Delivery Method Room Air Height 4 ft 11 in Weight 132 lb 6.4 oz BMI 26.7 Body Fat % 31.7 Body Fat Mass 41.8 Fat Free Mass 90.4 Visceral Fat Rating 7.0 Body Water % 48.5 Body Water Mass 64.2 Muscle Mass/Score 85.8 Basal Metabolic Rate/Score 1,232 Intake Visit Reasons: OV Panniculectomy 06/28/24 Allergies No Known Allergies Allergy (Verified 08/17/24 13:04) HPI Comments Details: 49-year-old female returns to the office today in follow-up. She is status post panniculectomy on 06/28/2024. She developed abscess along the right abdominal incision with subsequent dehiscence and purulent drainage. Cultures grew MRSA. She was switched to Bactrim DS given resistance to tetracyclines, today is day 1 of 10. Overall subjectively she reports significant improvement over the last 4 days. Denies any fevers or chills. [facility] Medical History (Updated 07/25/24 @ 15:16 by Cathy Saravia CMA) Excess skin History of vertigo Nephrolithiasis GERD (gastroesophageal reflux disease) Anxiety Depression BMI 39.0-39.9,adult Morbid obesity Right shoulder injury Left lateral epicondylitis Right shoulder tendonitis Carpal tunnel syndrome on both sides Normal vulvar exam Hemorrhoids Diverticulosis Tubular adenoma Encounter for screening colonoscopy Postmenopausal bleeding Well woman exam BENITO III (cervical intraepithelial neoplasia grade III) with severe dysplasia Carpal tunnel syndrome Acute arthritis Seasonal allergic rhinitis Surgical History (Updated 08/17/24 @ 13:06 by Cathy Saravia CMA) S/P panniculectomy 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) Hx of colonoscopy (07/2021) Tubal ligation status Family History Mother HTN (hypertension) A-fib Arthritis Father Diabetes HTN (hypertension) Sister Lupus Social History Household Members: Spouse Housing: House Are you a primary director of career resources to a significant other at home: No Do you presently have visiting nurse or other home services: No Alcohol intake: current Alcohol intake frequency: does not drink Patient Tobacco Use Status: Never used Tobacco service: No Current occupational status: employed 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 This is now more seropurulent versus complete purulence. Assessment & Plan Assessment & Plan (1) S/P panniculectomy: Code(s): Z98.890 - Other specified postprocedural states Category: Surgical Plan: Abscess draining nicely. The wound was irrigated with 50% hydrogen peroxide. Packed with quarter-inch packing strip. Patient tolerated the procedure well. She will have this done daily over the weekend to return to the office on Tuesday. Continue Bactrim DS 1 p.o. b.i.d., today is day 1 of 10.
--- OUTSIDE RECORDS SUMMARY | 2024-08-17 11:45 | XMS_ITS | Clinical Summary ---
Author Organization [facility] Address [address] [place] [address] Care Team Providers Care Liner Machine Operator Helper Name Role Phone Unavailable Primary Care Provider [...]
--- OUTSIDE RECORDS SUMMARY | 2024-08-17 11:46 | XMS_ITS | Clinical Summary ---
Author Organization [employer] Address [address] [facility] [address] [place] [address] Care Team Providers Care Apparel Cutter Name Role Phone Basilia Colon MD Primary Care Provider + Allergies No known active allergies Medications tiZANidine (Zanaflex) 4 MG capsuleIndicati ons:Acute pain of right shoulder Take 1 capsule (4 mg) by mouth 3 times daily. 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 Resolved Problems Problem Noted Date Diagnosed Date Resolved Date Obesity (BMI 30.0-34.9) 12/27/2022 11/0 05/2023 Assessment & Plan (12/27/2022 3:25 PM EST): Status Post bariatric surgery Significant decrease in BMI Continue Multivitamins Iron + zinc supplementation F/u [facility] obesity clinic F/u in 6 mos Morbid obesity 09/03/2011 12/12/2023 Overview (12/12/2023): Sp Laparoscopic sleeve gastrectomy on 11/04/22 at [facility] Assessment & Plan (06/16/2022 11:20 AM EDT): Discussed re weight reduction options including exercise, life style modifications, diet, referral to consumer marketing specialist. Discussed re lower calorie intake, increase dietary fiber I gave her information about weight management program for baritric surgery Encounters Date Type Department Care Team Description 08/13/2024 Orders Only GENERIC EXTERNAL DATA DEPARTMENT Provider, Generic External Data 07/18/2024 Orders Only [address] [address] Basilia Colon MD 06/28/2024 Orders Only GENERIC EXTERNAL DATA DEPARTMENT Provider, Generic External Data 06/26/2024 Orders Only GENERIC EXTERNAL DATA DEPARTMENT Provider, Generic External Data 06/22/2024 11:45 AM EDT Office Visit [address] [address] Basilia Colon MD Rheumatoid arthritis involving multiple sites with positive rheumatoid factor (CMS/HCC) (Primary Dx); Benign essential HTN; Dietary counseling; Exercise counseling; Overweight 06/22/2024 Travel 06/21/[address] [address] Basilia Colon MD chart prep 06/15/2024 Patient Outreach [address] [address] Basilia Colon MD Pre-visit Planning (SDOH screening [...] the past 12 months, has t he [employer] gas, oil or water company threatened to [...] EDT 08/13/2024 2:20 PM EDT Comment:Abdomen Narrative [facility] - 08/16/2024 8:01 AM EDT Gram [...] DERABLE LABS Final Result Performing Organization Address City/State/[facility] Co de Phone Number [facility] [address] [place] [phone] * BI Mammogram Screening Tomosynthesis Bilateral (07/18/2024 12:10 PM EDT) Anatomical Region Laterality Modality Breast Bilateral Mammography 07/18/2024 12:1 0 PM EDT Narrative 07/27/2024 1:14 PM EDT [address] [place] [address] Mammography Report Signed Patient: Serenity Gómez MR#: [id number] : 1975 Acct:[id number] Age/Sex: 48 / F ADM Date: 07/18/24 Loc: HO.MAMMO Attending Dr: Basilia Colon MD Ordering Physician: Basilia Colon MD Results: 1Ne gative Date of Service: 07/18/24 Follow Up: 1 Year From Orig ina Mammogram Procedure(s): MM tomosynthesis screening BI Accession Number(s): [id number] cc: Basilia Colon MD EXAMINATION: MM SCREENING [...] 07/27/24 1311 DD/ 1210 TD/TT: 07/18/24 1230 Motion Picture Critic: Procedure Note Donotuseinterpreter, Image - 07/27/20[facility] [address] [place] [address] Mammography Report Signed Patient: Serenity Gómez [facility]#: [id number] : 1975Acct:[id number] Age/Sex: 48 / FADM Date: 07/18/24 Loc: HAMZAHO Attending Dr: Basilia Colon MD Ordering Physician: Basilia Colon MDResults: 1Ne gative Date of Service: 07/18/24Follow Up: 1 Year From Orig inal Mammogram Procedure(s): MM tomosynthesis screening BI Accession Number(s): [id number] cc: Baislia Colon MD EXAMINATION: MM SCREENING DIGITAL BREAST [...] 07/27/24 1311 DD/ 1210 TD/TT: 07/18/24 1230 Motion Picture Critic: Basilia Colon MD IM BI PROCEDURES Final Result * Gross and Microscopic Level 3 (06/28/2024 12:08 PM EDT) 06/28/2024 12:0 8 PM EDT 06/28/2024 2:20 PM EDT [facility] - 06/29/2024 4:30 PM EDT ----- ------- Name: Serenity Gómez Age/Sex: 48/F : 1975 [id number]#: [id number] Attend Dr: Roel Monzon MD Re06/28/24 Status: [facility] Location: [facility] Disch: ----- ------- SPEC : [id number] RECD: 06/28/24-1420 STATUS: [facility] NUM: [id number] AN: 06/28/24-[address]: Roel Monzon MD [...] distinct cysts, lesions or nodules are identified. Infection Preventionist sections are submitted in cassettes A1-A3. CEDS IHC S/NG Disclaimer NOTE: Unless otherwise stated, all tissue is formalin-fixed and paraffin-embedded. Some or all of the immunohistochemical tests reported herein may have been developed and their performance characteristics determined by [facility]. They have not been cleared or approved by the U.S. Food and Drug Administration (FDA). However, the FDA has determined that such clearance or approval is not necessary. This laboratory is certified under the Clinical Laboratory Improvement Amendments of 1988 (CLIA) as qualified to perform high complexity clinical laboratory testing. Copies To: Basilia Colon MD [address] [address] CONTINUED ON NEXT PAGE ----- ------- Name: BarreraSerenity Kaiser Age/Sex: 48/F : 1975 Unit#: [id number] Attend Dr: Roel Monzon MD Re06/28/24 Status: [facility] Location: [facility] Disch: ----- ------- SPEC : [id number] RECD: 06/28/24-1420 STATUS: ANA MARÍA FERRERA NUM: [id number] AN: 06/28/24-[address]: Roel Monzon MD ENTERED: 06/28/24-9965 SP TYPE: Surgical OTHR DR: Basilia Colon MD ORDERED: Gross Micro L3 Copies To: (Continued) Roel Monzon MD [facility] Weight Management Program [address] [place] [phone] ----- ------- Signed (signature on file) Guillermina Wakefield MD 06/29/24 1630 ----- ------- END OF REPORT Generic External Data Provider LAB CYTOLOGY ORDMary GIBBONS Final Result Performing Organization Address [facility]/ZIP Co de Phone Number [facility] [address] [place] [phone] * Type and screen (06/26/2024 10:45 AM EDT) Blood Type AP [facility] Antibody Screen NEGATIVE [facility] 06/26/2024 10:4 5 AM EDT 06/26/2024 11:00 AM EDT Narrative [facility] - 06/26/2024 11:37 AM EDT witnessed by SmithING:Call Blood Bank (ext. [phone]) to band patient on admission.Type and Screen in effect until 2300 on 06-28-2024 Generic External Data Provider LAB BLOOD BANK TE ST ORDERABLES Final Result Performing Organization Address [facility]/ZIP Co de Phone Number [facility] [address] [place] [phone] [phone] * CBC auto differential (06/05/2024 11:20 AM EDT) White Blood Count 7.4 4.8 - 10.8 X10*3/uL [facility] Red Blood Count 4.58 4.20 - 5.50 X10*6/uL [facility] Hemoglobin 13.7 12.0 - 16.0 g/dl [facility] Hematocrit 41.2 37.0 - 47.0 % [facility] Mean Corpuscular Volume 90.0 80.0 - 98.0 fL [facility] Mean Corpuscular Hemoglobin 29.9 27.0 - 33.0 pg [facility] Mean Corpuscular HGB Conc 33.3 31.0 - 35.0 g/dl [facility] Red Cell Distribution Width 12.1 11.0 - 16.0 % [facility] Platelet Count 235 160 - 400 X10*3/uL [facility] Mean Platelet Volume 10.1 9.4 - 12.3 fL [facility] Neutrophils Percent Auto 56.7 45 - 73 % [facility] Imm Gran Pct Auto 0.3 0.0 - 0.4 % [facility] Lymphocytes Percent Auto 31.8 20 - 40 % [facility] Monocytes Percent Auto 9.6 2 - 11 % [facility] Eosinophils Percent Auto 1.2 0 - 4 % [facility] Basophils Percent Auto 0.4 0 - 2 % [facility] NRBC Pct Auto 0.0 0.0 - 0.2 /100WBC [facility] Neutrophils Absolute Auto 4.2 2.0 - 8.3 x10*3/uL [facility] Imm Gran Abs Auto 0.02 0.00 - 0.03 X10*3/uL [facility] Lymphocytes Absolute Auto 2.4 1.2 - 4.9 X10*3/uL [facility] Monocytes Absolute Auto 0.7 0.1 - 1.2 X10*3/uL [facility] Eosinophils Absolute Auto 0.1 0.0 - 0.4 X10*3/uL [facility] Basophils Absolute Auto 0.0 0.0 - 0.2 X10*3/uL [facility] NRBC Abs Auto 0.000 0.0 - 0.012 X10*3/uL [facility] 06/05/2024 11:2 0 AM EDT 06/05/2024 11:20 AM EDT Generic External Data Provider LAB BLOOD ORDERAB LES Final Result Performing Organization Address [facility] Co de Phone Number [facility] [address] [place] [phone] * Partial Thromboplastin Time, Activated (APTT) (06/05/2024 11:20 AM EDT) Partial Thromboplastin Time 29.3 26.0 - 36.8 SEC [facility] Comment:For information rega rding the monitoring of direct thrombininhibitors, please refer to Pharmacy. 06/05/2024 11:2 0 AM EDT 06/05/2024 11:20 AM EDT Generic External Data Provider LAB BLOOD ORDERAB LES Final Result Performing Organization Address [facility] Co de Phone Number [facility] [address] [place] [phone] * Prothrombin Time-INR (06/05/2024 11:20 AM EDT) Prothrombin Time 11.3 10.9 - 12.4 SEC [facility] INTERNATIONAL NORM RATIO 1.0 0.9 - 1.1 [facility] Comment:INTERNATIONAL NORMAL IZED RATIO (INR) REFERENCE [...] ORDERAB LES Final Result Performing Organization Address City/[facility]/ZIP Co de Phone Number [facility] [address] [place] [phone] * (ABNORMAL) Comprehensive Metabolic Panel (06/05/2024 11:20 AM EDT) Sodium 140 135 - 145 mmol/L [facility] Potassium 4.5 3.3 - 5.1 mmol/L [facility] Chloride 106 96 - 108 mmol/L [facility] Carbon Dioxide 30(H) 22 - 29 mmol/L [facility] Anion Gap 9(L) 12 - 20 [facility] Urea Nitrogen (BUN) 19(H) 9 - 16 mg/dL [facility] Creatinine, Serum 0.67 0.5 - 1.4 mg/dL [facility] Creatinine Clr Calc Pharmacy TNP [facility] Comment:Unable to calculate eCrCL; all parameters not provided. Estimated Glomerular Filt Rate >60 [facility] Comment:Chronic Kidney Disea se: Estimated GFR < 60 mL/min/1.74l8Vlowbo Kidney Disease: Estimated GFR < 15 mL/min/1.73m2 Glucose 89 60 - 115 mg/dL [facility] Calcium 9.1 8.4 - 10.2 mg/dL [facility] Bilirubin, Total 0.9 0.0 - 1.0 mg/dL [facility] Aspartate Amino Transferase 21 5 - 31 U/L [facility] Alanine Aminotransferase 11 0 - 31 U/L [facility] Total Protein 7.8 6.5 - 8.0 g/dL [facility] Albumin Level 4.2 3.5 - 5.0 g/dL [facility] Alkaline Phosphatase 71 39 - 117 U/L [facility] 06/05/2024 11:2 0 AM EDT 06/05/2024 11:20 AM EDT us Generic External Data Provider LAB BLOOD ORDERAB LES Final Result Performing Organization Address City/[facility]/ZIP Co de Phone Number [facility] [address] [place] [phone] * (ABNORMAL) Lipid Panel, Standard (02/24/2024 8:29 AM EST) Triglycerides 61 <150 mg/dL [facility] Comment:Desirable Triglyceri de: less than 150 mg/dLBorderline High Triglyceride 150-199 mg/dLHigh Triglyceride: 200-499 mg/dLVery High Triglyceride: greater than or equal to 5OO mg/dL Cholesterol 187 <200 mg/dL [facility] Comment:Desirable Cholestero l: less than 200 mg/dLBorderline High Cholesterol: 200-239 mg/dLHigh Cholesterol: greater than 239 mg/dL LDL Cholesterol Calculated 110(H) <100 mg/dL [facility] Comment:Desirable LDL: less than 100 mg/dLNear Optimal/Above Optimal LDL: 110- 129 mg/dLBorderline High LDL: 130-159 mg/dLHigh LDL: 160-189 mg/dLVery High LDL: greater than or equal to 190 mg/dL HDL Cholesterol 65 >40 mg/dL [facility] Comment:Desirable HDL: great er than 40 mg/dL Note: This HDL assay may give artificially low results in patients with liver disease. 02/24/2024 8:29 AM EST 02/24/2024 8:29 AM EST us Generic External Data Provider LAB BLOOD ORDERAB LES Final Result [facility] [address] [place] [phone] * Pap Smear (12/29/2022 2:49 PM EST) 12/29/2022 2:49 PM EST 01/03/2023 7:00 AM EST Narrative [facility] - 01/13/2023 4:11 PM EST ----- ------- Name: Serenity Gómez Age/Sex: 47/F : 1975 Unit#: [id number] Attend Dr: Chalino Benton MD Re12/29/22 Status: [facility] REF Location: [facility] Disch: ----- ------- SPEC : [id number] RECD: 01/03/23-699 STATUS: TRACEDionicio IBAN NUM: [id number] AN: 12/29/22-1449 [facility] DR: Chalino Benton MD ENTERED: 01/04/23-1316 SP [...] 59, 66, 68) HPV testing performed by [facility], [place], [place]. See reference laboratory portion of the EMR for entire report. Clinical Information LMP: Postmenopausal Previous PAP test: 2021, ASCUS, HPV+ Material Received ThinPrep-Cervical Copies To: Basilia Colon MD [address] [place] [address] [phone] Chalino Benton MD [address] [place] [address] [address] ----- ------- Signed (signature on file) MANUEL Uriarte (ASCP) 01/13/23 1611 ----- ------- END OF REPORT us Generic External Data Provider LAB CYTOLOGY NATHALIA GIBBONS Final Result [facility] [address] [place] [phone] * HPV E6/E7 RFLX OLGA 16 18/45 (11/11/2021 3:37 PM EDT) [facility] HPV mRNA E6/E7 rflx Not Detected Not Detected [facility] Comment: Methodology: Automobile Radiator Mechanic-Mediated Amplification This assay detects E6/E7 viral messenger RNA (mRNA) from 14 high-risk HPV types (16,18,31,33,35,39,45,51,52,56,58,59,66,68). Cervical sources are required for HPV testing. If a vaginal source from a patient who has had a total hysterectomy with removal of cervix was submitted, please contact the testing laboratory for alternative testing options. For additional information, please refer to http://education.Vanilla Breeze/faq/OTY787i5 (This link if provided for information/ educational purposes only.) THIS TEST WAS PERFORMED AT: [email or web address] [address] [place] [address],[place] [address] ELIZABETH ANDRES MD 11/11/2021 3:37 PM EDT us Chalino Benton MD HISTORICAL/NON ORDERABLE LABS Fi nal Result CONVERTED LEGACY LABS * Hm Colonoscopy (07/08/2021 9:47 AM EDT) Historical Provider HEALTH MAINTENANCE Final Result * HIV 1/2 ANTIGEN/ANTIBODY,FOURTH GENERATION W/RFL (10/17/2020 1:05 PM EDT) Pathologist [facility] HIV-1/2 ANTIGEN AND ANTIBODIES, 4TH GENERATION W/ [...] purpose. For additional information please refer to http://education.VBOX.gdgt/faq/BRG815 (This link is being provided for informational/ educational purposes only.) The performance of this assay has not been clinically validated in patients less than 2 years old. 10/17/2020 1:05 PM EDT us Basilia Colon MD LAB BLOOD ORDERABLES Fin al Result [facility] [address] from Last 3 Months or Most Recently Relevant to Health Maintenance Insurance HSN PARTIAL [facility] Care Teams Apparel Cutter Relationship Specialty Start Date End Date Basilia Colon MD [address] [place] [phone] PCP - General Family Medicine 12/27/17 Tommie A 06/29/24
--- OUTSIDE RECORDS SUMMARY | 2024-08-17 11:46 | XMS_ITS | Clinical Summary ---
Author Organization [facility] Address [address] [place] [address] Care Team Providers Care Spragger Name Role Phone Unavailable Primary Care Provider [...] Upcoming Encounters Date Type Department Care Team ([facility] st Contact Info) Description 09/11/2024 4:20 PM EDT Office Visit [facility] [address] [place] [phone] Thaddeus Wright, [facility] [address] [place] [address] Health Maintenance Due Date Last Done Comments [...] 08/01/2023 Imm-Zoster, Recombinant (1 of 2) 08/01/2023 [id number] ( - 2023- season) 2023 Alcohol and [...] Recently Relevant to Health Maintenance Insurance [facility]
[2024-08-17 13:03] VITALS: BP 129/79; PULSE 71; TEMP 36.4; O2SAT 98; BMI 26.7
== END 2024-08-17 12:59 | disposition home or self-care (01) ==
LOC: HO.HBS 11:07
PROVIDERS: PCP Internal Medicine; Visit Provider Physician Assistant Surgical
DX: Z98.890 Other specified postprocedural states (principal)
CPT/HCPCS: 99024

== ENCOUNTER → 2024-08-17 11:07 | Outpatient (BNVA) | payer OTHER, SELFPAY | PROVIDERS: PCP Internal Medicine; Visit Provider Physician Assistant Surgical | DX: Z98.890 Other specified postprocedural states (principal); L02.211 Cutaneous abscess of abdominal wall | CPT/HCPCS: 99212 ==

== ENCOUNTER 2024-08-20 11:42 | Outpatient (AMB) | payer OTHER, SELFPAY ==
--- NOTE | 2024-08-20 11:44 | A.OFFVIS_ITS ---
VS Expanded 08/20/24 12:12 BP 129/68 Blood Pressure Location Rt brachial Blood Pressure Position Sitting Pulse 80 Pulse Source Pulse Oximeter Temp 97.8 F Temperature Source Temporal Artery Scan Pulse Oximetry 98 Oxygen Delivery Method Room Air Height 4 ft 11 in Weight 131 lb 3.2 oz BMI 26.5 Body Fat % 33.3 Body Fat Mass 43.6 Fat Free Mass 87.6 Visceral Fat Rating 0 Body Water % 47.4 Body Water Mass 62.2 Muscle Mass/Score 83.2 Basal Metabolic Rate/Score 1,203 Intake Visit Reasons: OV Panniculectomy 06/28/24 Allergies No Known Allergies Allergy (Verified 08/17/24 13:04) HPI Comments Details: Patient is a pleasant 49-year-old female who returns to the office today in follow-up. She is status post panniculectomy on 06/28/2024. She developed abscess formation and ultimately incisional dehiscence along the right side of her abdomen. This has been packed on a daily basis with quarter-inch packing strip. Over the weekend she reports no significant fevers or chills. She feels as though there is less purulent drainage coming from the right abdomen. She does notice a firmness to the suprapubic area with some mild warmth and erythema noted although she feels this is secondary to the abdominal binder that she has been wearing. She continues on her antibiotic without difficulty. [facility] Medical History (Updated 08/20/24 @ 13:35 by TIFFANY Fox) Excess skin History of vertigo Nephrolithiasis GERD (gastroesophageal reflux disease) Anxiety Depression BMI 39.0-39.9,adult Morbid obesity Right shoulder injury Left lateral epicondylitis Right shoulder tendonitis Carpal tunnel syndrome on both sides Normal vulvar exam Hemorrhoids Diverticulosis Tubular adenoma Encounter for screening colonoscopy Postmenopausal bleeding Well woman exam BENITO III (cervical intraepithelial neoplasia grade III) with severe dysplasia Carpal tunnel syndrome Acute arthritis Seasonal allergic rhinitis Surgical History (Updated 08/17/24 @ 13:06 by Cathy Saravia CMA) S/P panniculectomy 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) Hx of colonoscopy (07/2021) Tubal ligation status Family History Mother HTN (hypertension) A-fib Arthritis Father Diabetes HTN (hypertension) Sister Lupus Social History Household Members: Spouse Housing: House Are you a primary laboratory animal caretaker to a significant other at home: No Do you presently have visiting nurse or other home services: No Alcohol intake: current Alcohol intake frequency: does not drink Patient Tobacco Use Status: Never used Tobacco service: No Current occupational status: employed 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 No appreciable purulence expressed through the opening in the right abdomen. Minimal purulence on the packing strip that was removed. The tract was instrumented with tonsil forceps, flushed with 50% strength hydrogen peroxide and was packed with quarter-inch packing strip. Assessment & Plan Assessment & Plan (1) S/P panniculectomy: Code(s): Z98.890 - Other specified postprocedural states Category: Surgical Plan: Discussed the case with Dr. Monzon. We will check CBC and CT scan without contrast for further evaluation of the abdomen. She is improving symptomatically as well as objectively with less purulent drainage noted and significantly less tenderness however given the induration in the suprapubic area, concern for possible loculated collection. Continue antibiotics. Return to clinic tomorrow Orders: Orders CT abdomen pelvis wo IV con Today T81.49XA - Infection following a procedure, other surgical site, initial encounter, Z98.890 - Other specified postprocedural states Complete Blood Count Auto Diff Today T81.49XA - Infection following a procedure, other surgical site, initial encounter, Z98.890 - Other specified postprocedural states
[2024-08-20 12:12] VITALS: BP 129/68; PULSE 80; TEMP 36.6; O2SAT 98; BMI 26.5
--- OUTSIDE RECORDS SUMMARY | 2024-08-20 12:50 | XMS_ITS | Clinical Summary ---
Author Organization [facility] it[facility] Address [address] [place] [address] Care Team Providers Care Quantitative Analyst Developer Name Role Phone Unavailable Primary Care Provider [...]
--- OUTSIDE RECORDS SUMMARY | 2024-08-20 12:51 | XMS_ITS | Clinical Summary ---
Author Organization [employer] Address [address] [facility] [address] [place] [address] Care Team Providers Care [employer] Assistant Manager Name Role Phone Basilia Colon MD Primary Care Provider + Allergies No known active allergies Medications tiZANidine (Zanaflex) 4 MG capsuleIndicati ons:Acute pain of right shoulder Take 1 capsule (4 mg) by mouth 3 times daily. 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 Resolved Problems Problem Noted Date Diagnosed Date Resolved Date Obesity (BMI 30.0-34.9) 12/27/2022 11/0 05/2023 Assessment & Plan (12/27/2022 3:25 PM EST): Status Post bariatric surgery Significant decrease in BMI Continue Multivitamins Iron + zinc supplementation F/u [facility] obesity clinic F/u in 6 mos Morbid obesity 09/03/2011 12/12/2023 Overview (12/12/2023): Sp Laparoscopic sleeve gastrectomy on 11/04/22 at [facility] Assessment & Plan (06/16/2022 11:20 AM EDT): Discussed re weight reduction options including exercise, life style modifications, diet, referral to water conservation specialist. Discussed re lower calorie intake, increase dietary fiber I gave her information about weight management program for baritric surgery Encounters Date Type Department Care Team Description 08/13/2024 Orders Only GENERIC EXTERNAL DATA DEPARTMENT Provider, Generic External Data 07/18/2024 Orders Only [address] [address] Basilia Colon MD 06/28/2024 Orders Only GENERIC EXTERNAL DATA DEPARTMENT Provider, Generic External Data 06/26/2024 Orders Only GENERIC EXTERNAL DATA DEPARTMENT Provider, Generic External Data 06/22/2024 11:45 AM EDT Office Visit [address] [address] Basilia Colon MD Rheumatoid arthritis involving multiple sites with positive rheumatoid factor (CMS/HCC) (Primary Dx); Benign essential HTN; Dietary counseling; Exercise counseling; Overweight 06/22/2024 Travel 06/21/[address] [address] Basilia Colon MD chart prep 06/15/2024 Patient Outreach [address] [address] Basilia Colon MD Pre-visit Planning (SDOH screening [...] the past 12 months, has t he [employer], gas, oil or water company threatened to [...] EDT 08/13/2024 2:20 PM EDT Comment:Abdomen Narrative [facility] - 08/16/2024 8:01 AM EDT Gram [...] DERABLE LABS Final Result Performing Organization Address City/State/[facility] Co de Phone Number [facility] [address] [place] [phone] * BI Mammogram Screening Tomosynthesis Bilateral (07/18/2024 12:10 PM EDT) Anatomical Region Laterality Modality Breast Bilateral Mammography 07/18/2024 12:1 0 PM EDT Narrative 07/27/2024 1:14 PM EDT [address] [place] [address] Mammography Report Signed Patient: Serenity Gómez MR#: [id number] : 1975 Acct:[id number] Age/Sex: 48 / F ADM Date: 07/18/24 Loc: HO.MAMMO Attending Dr: Basilia Colon MD Ordering Physician: Basilia Colon MD Results: 1Ne gative Date of Service: 07/18/24 Follow Up: 1 Year From Orig ina Mammogram Procedure(s): MM tomosynthesis screening BI Accession Number(s): [id number] cc: Basilia Colon MD EXAMINATION: MM SCREENING [...] 07/27/24 1311 DD/ 1210 TD/TT: 07/18/24 1230 Legal Contracts Specialist: Procedure Note Donotuseinterpreter, Image - 07/27/2024 [facility] [address] [place] [address] Mammography Report Signed Patient: Serenity Gómez [facility]#: [id number] : 1975Acct:[id number] Age/Sex: 48 / FADM Date: 07/18/24 Loc: HAMZAHO Attending Dr: Basilia Colon MD Ordering Physician: Basilia Colon MDResults: 1Ne gative Date of Service: 07/18/24Follow Up: 1 Year From Orig inal Mammogram Procedure(s): MM tomosynthesis screening BI Accession Number(s): [id number] cc: Basilia Colon MD EXAMINATION: MM SCREENING [...] 07/27/24 1311 DD/ 1210 TD/TT: 07/18/24 1230 Legal Contracts Specialist: Basilia Colon MD IM BI PROCEDURES Final Result * Gross and Microscopic Level 3 (06/28/2024 12:08 PM EDT) 06/28/2024 12:0 8 PM EDT 06/28/2024 2:20 PM EDT [facility] - 06/29/2024 4:30 PM EDT ----- ------- Name: Serenity Gómez Age/Sex: 48/F : 1975 [id number]#: [id number] Attend Dr: Roel Monzon MD Re06/28/24 Status: [facility] Location: [facility] Disch: ----- ------- SPEC : [id number] RECD: 06/28/24-1420 STATUS: [facility] NUM: [id number] AN: 06/28/24-[address]: Roel Monzon MD [...] distinct cysts, lesions or nodules are identified. Underground [employer] Superintendent sections are submitted in cassettes A1-A3. CEDS IHC S/NG Disclaimer NOTE: Unless otherwise stated, all tissue is formalin-fixed and paraffin-embedded. Some or all of the immunohistochemical tests reported herein may have been developed and their performance characteristics determined by [facility]. They have not been cleared or approved by the U.S. Food and Drug Administration (FDA). However, the FDA has determined that such clearance or approval is not necessary. This laboratory is certified under the Clinical Laboratory Improvement Amendments of 1988 (CLIA) as qualified to perform high complexity clinical laboratory testing. Copies To: Basilia Colon MD [address] [address] CONTINUED ON NEXT PAGE ----- ------- Name: BarreraSerenity Kaiser Age/Sex: 48/F : 1975 Unit#: [id number] Attend Dr: Roel Monzon MD Re06/28/24 Status: [facility] Location: [facility] Disch: ----- ------- SPEC : [id number] RECD: 06/28/24-1420 STATUS: [facility] NUM: [id number] AN: 06/28/24-[address]: Roel Monzon MD ENTERED: 06/28/24-0987 SP TYPE: Surgical OTHR DR: Basilia Colon MD ORDERED: Gross Micro L3 Copies To: (Continued) Roel Monzon MD [facility] Weight Management Program [address] [place] [phone] ----- ------- Signed (signature on file) Guillermina Wakefield MD 06/29/24 1630 ----- ------- END OF REPORT Generic External Data Provider LAB CYTOLOGY ORDMary GIBBONS Final Result Performing Organization Address [facility]/ZIP Co de Phone Number [facility] [address] [place] [address] [phone] * Type and screen (06/26/2024 10:45 AM EDT) Blood Type AP [facility] Antibody Screen NEGATIVE [facility] 06/26/2024 10:4 5 AM EDT 06/26/2024 11:00 AM EDT Narrative [facility] - 06/26/2024 11:37 AM EDT witnessed by SmithING:Call Blood Bank (ext. [phone]) to band patient on admission.Type and Screen in effect until 2300 on 06-28-2024 Generic External Data Provider LAB BLOOD BANK TE ST ORDERABLES Final Result Performing Organization Address [facility]/ZIP Co de Phone Number [facility] [address] [place] [address] [phone] * CBC auto differential (06/05/2024 11:20 AM EDT) White Blood Count 7.4 4.8 - 10.8 X10*3/uL [facility] Red Blood Count 4.58 4.20 - 5.50 X10*6/uL [facility] Hemoglobin 13.7 12.0 - 16.0 g/dl [facility] Hematocrit 41.2 37.0 - 47.0 % [facility] Mean Corpuscular Volume 90.0 80.0 - 98.0 fL [facility] Mean Corpuscular Hemoglobin 29.9 27.0 - 33.0 pg [facility] Mean Corpuscular HGB Conc 33.3 31.0 - 35.0 g/dl [facility] Red Cell Distribution Width 12.1 11.0 - 16.0 % [facility] Platelet Count 235 160 - 400 X10*3/uL [facility] Mean Platelet Volume 10.1 9.4 - 12.3 fL [facility] Neutrophils Percent Auto 56.7 45 - 73 % [facility] Imm Gran Pct Auto 0.3 0.0 - 0.4 % [facility] Lymphocytes Percent Auto 31.8 20 - 40 % [facility] Monocytes Percent Auto 9.6 2 - 11 % [facility] Eosinophils Percent Auto 1.2 0 - 4 % [facility] Basophils Percent Auto 0.4 0 - 2 % [facility] NRBC Pct Auto 0.0 0.0 - 0.2 /100WBC [facility] Neutrophils Absolute Auto 4.2 2.0 - 8.3 x10*3/uL [facility] Imm Gran Abs Auto 0.02 0.00 - 0.03 X10*3/uL [facility] Lymphocytes Absolute Auto 2.4 1.2 - 4.9 X10*3/uL [facility] Monocytes Absolute Auto 0.7 0.1 - 1.2 X10*3/uL [facility] Eosinophils Absolute Auto 0.1 0.0 - 0.4 X10*3/uL [facility] Basophils Absolute Auto 0.0 0.0 - 0.2 X10*3/uL [facility] NRBC Abs Auto 0.000 0.0 - 0.012 X10*3/uL [facility] 06/05/2024 11:2 0 AM EDT 06/05/2024 11:20 AM EDT Generic External Data Provider LAB BLOOD ORDERAB LES Final Result Performing Organization Address [facility] Co de Phone Number [facility] [address] [place] [phone] * Partial Thromboplastin Time, Activated (APTT) (06/05/2024 11:20 AM EDT) Partial Thromboplastin Time 29.3 26.0 - 36.8 SEC [facility] Comment:For information rega rding the monitoring of direct thrombininhibitors, please refer to Pharmacy. 06/05/2024 11:2 0 AM EDT 06/05/2024 11:20 AM EDT Generic External Data Provider LAB BLOOD ORDERAB LES Final Result Performing Organization Address [facility] Co de Phone Number [facility] [address] [place] [phone] * Prothrombin Time-INR (06/05/2024 11:20 AM EDT) Prothrombin Time 11.3 10.9 - 12.4 SEC [facility] INTERNATIONAL NORM RATIO 1.0 0.9 - 1.1 [facility] Comment:INTERNATIONAL NORMAL IZED RATIO (INR) [...] ORDERAB LES Final Result Performing Organization Address City/[facility]/ZIP Co de Phone Number [facility] [address] [place] [phone] * (ABNORMAL) Comprehensive Metabolic Panel (06/05/2024 11:20 AM EDT) Sodium 140 135 - 145 mmol/L [facility] Potassium 4.5 3.3 - 5.1 mmol/L [facility] Chloride 106 96 - 108 mmol/L [facility] Carbon Dioxide 30(H) 22 - 29 mmol/L [facility] Anion Gap 9(L) 12 - 20 [facility] Urea Nitrogen (BUN) 19(H) 9 - 16 mg/dL [facility] Creatinine, Serum 0.67 0.5 - 1.4 mg/dL [facility] Creatinine Clr Calc Pharmacy TNP [facility] Comment:Unable to calculate eCrCL; all parameters not provided. Estimated Glomerular Filt Rate >60 [facility] Comment:Chronic Kidney Disea se: Estimated GFR < 60 mL/min/[id number] Kidney Disease: Estimated GFR < 15 mL/min/1.73m2 Glucose 89 60 - 115 mg/dL [facility] Calcium 9.1 8.4 - 10.2 mg/dL [facility] Bilirubin, Total 0.9 0.0 - 1.0 mg/dL [facility] Aspartate Amino Transferase 21 5 - 31 U/L [facility] Alanine Aminotransferase 11 0 - 31 U/L [facility] Total Protein 7.8 6.5 - 8.0 g/dL [facility] Albumin Level 4.2 3.5 - 5.0 g/dL [facility] Alkaline Phosphatase 71 39 - 117 U/L [facility] 06/05/2024 11:2 0 AM EDT 06/05/2024 11:20 AM EDT us Generic External Data Provider LAB BLOOD ORDERAB LES Final Result Performing Organization Address City/[facility]/ZIP Co de Phone Number [facility] [address] [place] [address] [phone] * (ABNORMAL) Lipid Panel, Standard (02/24/2024 8:29 AM EST) Triglycerides 61 <150 mg/dL [facility] Comment:Desirable Triglyceri de: less than 150 mg/dLBorderline High Triglyceride 150-199 mg/dLHigh Triglyceride: 200-499 mg/dLVery High Triglyceride: greater than or equal to 5OO mg/dL Cholesterol 187 <200 mg/dL [facility] Comment:Desirable Cholestero l: less than 200 mg/dLBorderline High Cholesterol: 200-239 mg/dLHigh Cholesterol: greater than 239 mg/dL LDL Cholesterol Calculated 110(H) <100 mg/dL [facility] Comment:Desirable LDL: less than 100 mg/dLNear Optimal/Above Optimal LDL: 110- 129 mg/dLBorderline High LDL: 130-159 mg/dLHigh LDL: 160-189 mg/dLVery High LDL: greater than or equal to 190 mg/dL HDL Cholesterol 65 >40 mg/dL [facility] Comment:Desirable HDL: great er than 40 mg/dL Note: This HDL assay may give artificially low results in patients with liver disease. 02/24/2024 8:29 AM EST 02/24/2024 8:29 AM EST us Generic External Data Provider LAB BLOOD ORDERAB LES Final Result [facility] [address] [place] [address] [phone] * Pap Smear (12/29/2022 2:49 PM EST) 12/29/2022 2:49 PM EST 01/03/2023 7:00 AM EST Narrative [facility] - 01/13/2023 4:11 PM EST ----- ------- Name: Serenity Gómez Age/Sex: 47/F : 1975 Unit#: [id number] Attend Dr: Chalino Benton MD Re12/29/22 Status: [facility] REF Location: [facility] Disch: ----- ------- SPEC : [id number] RECD: 01/03/23-699 STATUS: [employer] NUM: [id number] AN: 12/29/22-[address] [facility] [address]: Chalino Benton MD ENTERED: 01/04/23-1316 [...] 59, 66, 68) HPV testing performed by [email or web address], [place], [place]. See reference laboratory portion of the EMR for entire report. Clinical Information LMP: Postmenopausal Previous PAP test: 2021, ASCUS, HPV+ Material Received ThinPrep-Cervical Copies To: Basilia Colon MD [address] [place] [address] [phone] Chalino Benton MD [address] [place] [address] [address] ----- ------- Signed (signature on file) MANUEL Uriarte (ASCP) 01/13/23 1611 ----- ------- END OF REPORT us Generic External Data Provider LAB CYTOLOGY NATHALIA GIBBONS Final Result [facility] [address] [place] [phone] * HPV E6/E7 RFLX OLGA 16 18/45 (11/11/2021 3:37 PM EDT) [facility] HPV mRNA E6/E7 rflx Not Detected Not Detected [facility] Comment: Methodology: [employer]-Mediated Amplification This assay detects E6/E7 viral messenger RNA (mRNA) from 14 high-risk HPV types (16,18,31,33,35,39,45,51,52,56,58,59,66,68). Cervical sources are required for HPV testing. If a vaginal source from a patient who has had a total hysterectomy with removal of cervix was submitted, please contact the testing laboratory for alternative testing options. For additional information, please refer to http://education.[employer]/faq/PWU459u1 (This link if provided for information/ educational purposes only.) THIS TEST WAS PERFORMED AT: [employer] [address] [place] [address],[place] [address] ELIZABETH ANDRES MD 11/11/2021 3:37 PM EDT us Chalino Benton MD HISTORICAL/NON ORDERABLE LABS Fi nal Result CONVERTED [facility]Y LAB[facility] * Hm Colonoscopy (07/08/2021 9:47 AM EDT) Historical Provider HEALTH MAINTENANCE Final Result * HIV 1/2 ANTIGEN/ANTIBODY,FOURTH GENERATION W/RFL (10/17/2020 1:05 PM EDT) Pathologist [facility] HIV-1/2 ANTIGEN AND ANTIBODIES, 4TH GENERATION W/ [...] purpose. For additional information please refer to http://education.[employer]/faq/UVC804 (This link is being provided for informational/ educational purposes only.) The performance of this assay has not been clinically validated in patients less than 2 years old. 10/17/2020 1:05 PM EDT us Basilia Colon MD LAB BLOOD ORDERABLES Fin al Result [facility] [address] from Last 3 Months or Most Recently Relevant to Health Maintenance Insurance [facility] Care Teams [employer] Assistant Manager Relationship Specialty Start Date End Date Basilia Colon MD [address] [place] [phone] PCP - General Family Medicine 12/27/17 Tommie A 06/29/24
== END 2024-08-20 12:43 | disposition home or self-care (01) ==
LOC: HO.HBS 11:43
PROVIDERS: PCP Internal Medicine; Visit Provider Physician Assistant Surgical
DX: Z98.890 Other specified postprocedural states (principal)
CPT/HCPCS: 99024

== ENCOUNTER → 2024-08-20 11:42 | Outpatient (BNVA) | payer OTHER, SELFPAY | PROVIDERS: PCP Internal Medicine; Visit Provider Physician Assistant Surgical | DX: T81.49XA Infection following a procedure, other surgical site, initial encounter (principal); Z98.890 Other specified postprocedural states | CPT/HCPCS: 99212 ==

== ENCOUNTER 2024-08-21 08:31 | Outpatient (AMB) | payer OTHER, SELFPAY ==
--- OUTSIDE RECORDS SUMMARY | 2024-08-21 08:37 | XMS_ITS | Clinical Summary ---
Author Organization [employer] Address [address] [facility] [address] [place] [address] Care Team Providers Care Diving Instructor Name Role Phone Basilia Colon MD Primary Care Provider + Allergies No known active allergies Medications tiZANidine (Zanaflex) 4 MG capsuleIndicati ons:Acute pain of right shoulder Take 1 capsule (4 mg) by mouth 3 times daily. 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 Resolved Problems Problem Noted Date Diagnosed Date Resolved Date Obesity (BMI 30.0-34.9) 12/27/2022 11/0 05/2023 Assessment & Plan (12/27/2022 3:25 PM EST): Status Post bariatric surgery Significant decrease in BMI Continue Multivitamins Iron + zinc supplementation F/u [facility] [place] F/u in 6 mos Morbid obesity 09/03/2011 12/12/2023 Overview (12/12/2023): Sp Laparoscopic sleeve gastrectomy on 11/04/22 at [facility] Assessment & Plan (06/16/2022 11:20 AM EDT): Discussed re weight reduction options including exercise, life style modifications, diet, referral to micro computer specialist. Discussed re lower calorie intake, increase dietary fiber I gave her information about weight management program for baritric surgery Encounters Date Type Department Care Team Description 08/13/2024 Orders Only GENERIC EXTERNAL DATA DEPARTMENT Provider, Generic External Data 07/18/2024 Orders Only [address] [address] Basilia Colon MD 06/28/2024 Orders Only GENERIC EXTERNAL DATA DEPARTMENT Provider, Generic External Data 06/26/2024 Orders Only GENERIC EXTERNAL DATA DEPARTMENT Provider, Generic External Data 06/22/2024 11:45 AM EDT Office Visit [address] [address] Basilia Colon MD Rheumatoid arthritis involving multiple sites with positive rheumatoid factor (CMS/HCC) (Primary Dx); Benign essential HTN; Dietary counseling; Exercise counseling; Overweight 06/22/2024 Travel 06/21/[address] [address] Basilia Colon MD chart prep 06/15/2024 Patient Outreach [address] [address] Basilia Colon MD Pre-visit Planning (SDOH screening [...] the past 12 months, has t he [email or web address], gas, oil or water company threatened to [...] EDT 08/13/2024 2:20 PM EDT Comment:Abdomen Narrative [facility] - 08/16/2024 8:01 AM EDT [...] DERABLE LABS Final Result Performing Organization Address City/State/[facility] Co de Phone Number [facility] [address] [place] [phone] * BI Mammogram Screening Tomosynthesis Bilateral (07/18/2024 12:10 PM EDT) Anatomical Region Laterality Modality Breast Bilateral Mammography 07/18/2024 12:1 0 PM EDT Narrative 07/27/2024 1:14 PM EDT [address] [place] [address] Mammography Report Signed Patient: Serenity Gómez MR#: [id number] : 1975 Acct:[id number] Age/Sex: 48 / F ADM Date: 07/18/24 Loc: HO.MAMMO Attending Dr: Basilia Colon MD Ordering Physician: Basilia Colon MD Results: 1Ne gative Date of Service: 07/18/24 Follow Up: 1 Year From Orig ina Mammogram Procedure(s): MM tomosynthesis screening BI Accession Number(s): [id number] cc: Basilia Colon MD EXAMINATION: MM SCREENING [...] 07/27/24 1311 DD/ 1210 TD/TT: 07/18/24 1230 Nanotechnologist: Procedure Note Donotuseinterpreter, Image - 07/27/20[facility] [address] [place] [address] Mammography Report Signed Patient: Serenity Gómez [facility]#: [id number] : 1975Acct:[id number] Age/Sex: 48 / FADM Date: 07/18/24 Loc: HAMZAHO Attending Dr: Basilia Colon MD Ordering Physician: Basilia Cooln MDResults: 1Ne gative Date of Service: 07/18/24Follow Up: 1 Year From Orig inal Mammogram Procedure(s): MM tomosynthesis screening BI Accession Number(s): [id number] cc: Basilia Colon MD EXAMINATION: MM SCREENING [...] 07/27/24 1311 DD/ 1210 TD/TT: 07/18/24 1230 Nanotechnologist: Basilia Colon MD IM BI PROCEDURES Final Result * Gross and Microscopic Level 3 (06/28/2024 12:08 PM EDT) 06/28/2024 12:0 8 PM EDT 06/28/2024 2:20 PM EDT [facility] - 06/29/2024 4:30 PM EDT ----- ------- Name: Serenity Gómez Age/Sex: 48/F [facility] 1975 [id number] [id number] Attend Dr: Roel Monzon MD Re06/28/24 Status: [facility] Location: [facility] Disch: ----- ------- SPEC : [id number] RECD: 06/28/24-1420 STATUS: [facility] NUM: [id number] AN: 06/28/24-[address]: Roel Monzon MD [...] distinct cysts, lesions or nodules are identified. [employer] Calculator sections are submitted in cassettes A1-A3. CEDS IHC S/NG Disclaimer NOTE: Unless otherwise stated, all tissue is formalin-fixed and paraffin-embedded. Some or all of the immunohistochemical tests reported herein may have been developed and their performance characteristics determined by [facility]. They have not been cleared or approved by the U.S. Food and Drug Administration (FDA). However, the FDA has determined that such clearance or approval is not necessary. This laboratory is certified under the Clinical Laboratory Improvement Amendments of 1988 (CLIA) as qualified to perform high complexity clinical laboratory testing. Copies To: Basilia Colon MD [address] [address] CONTINUED ON NEXT PAGE ----- ------- Name: BarreraSerenity Kaiser Age/Sex: 48/F : 1975 Unit#: [id number] Attend Dr: Roel Monzon MD Re06/28/24 Status: [facility] Location: [facility] Disch: ----- ------- SPEC : [id number] RECD: 06/28/24-1420 STATUS: [facility] NUM: [id number] AN: 06/28/24-[address]: Roel Monzon MD ENTERED: 06/28/24-7654 SP TYPE: Surgical OTHR DR: Basilia Colon MD ORDERED: Gross Micro L3 Copies To: (Continued) Roel Monzon MD [facility] Weight Management Program [address] [place] [phone] ----- ------- Signed (signature on file) Guillermina Wakefield MD 06/29/24 1630 ----- ------- END OF REPORT Generic External Data Provider LAB CYTOLOGY ORDMary GIBBONS Final Result Performing Organization Address [facility]/ZIP Co de Phone Number [facility] [address] [place] [phone] * Type and screen (06/26/2024 10:45 AM EDT) Blood Type AP [facility] Antibody Screen NEGATIVE [facility] 06/26/2024 10:4 5 AM EDT 06/26/2024 11:00 AM EDT Narrative [facility] - 06/26/2024 11:37 AM EDT witnessed by SmithING:Call Blood Bank (ext. [phone]) to band patient on admission.Type and Screen in effect until 2300 on 06-28-2024 Generic External Data Provider LAB BLOOD BANK TE ST ORDERABLES Final Result Performing Organization Address [facility]/ZIP Co de Phone Number [facility] [address] [place] [phone] * CBC auto differential (06/05/2024 11:20 AM EDT) White Blood Count 7.4 4.8 - 10.8 X10*3/uL [facility] Red Blood Count 4.58 4.20 - 5.50 X10*6/uL [facility] Hemoglobin 13.7 12.0 - 16.0 g/dl [facility] Hematocrit 41.2 37.0 - 47.0 % [facility] Mean Corpuscular Volume 90.0 80.0 - 98.0 fL [facility] Mean Corpuscular Hemoglobin 29.9 27.0 - 33.0 pg [facility] Mean Corpuscular HGB Conc 33.3 31.0 - 35.0 g/dl [facility] Red Cell Distribution Width 12.1 11.0 - 16.0 % [facility] Platelet Count 235 160 - 400 X10*3/uL [facility] Mean Platelet Volume 10.1 9.4 - 12.3 fL [facility] Neutrophils Percent Auto 56.7 45 - 73 % [facility] Imm Gran Pct Auto 0.3 0.0 - 0.4 % [facility] Lymphocytes Percent Auto 31.8 20 - 40 % [facility] Monocytes Percent Auto 9.6 2 - 11 % [facility] Eosinophils Percent Auto 1.2 0 - 4 % [facility] Basophils Percent Auto 0.4 0 - 2 % [facility] NRBC Pct Auto 0.0 0.0 - 0.2 /100WBC [facility] Neutrophils Absolute Auto 4.2 2.0 - 8.3 x10*3/uL [facility] Imm Gran Abs Auto 0.02 0.00 - 0.03 X10*3/uL [facility] Lymphocytes Absolute Auto 2.4 1.2 - 4.9 X10*3/uL [facility] Monocytes Absolute Auto 0.7 0.1 - 1.2 X10*3/uL [facility] Eosinophils Absolute Auto 0.1 0.0 - 0.4 X10*3/uL [facility] Basophils Absolute Auto 0.0 0.0 - 0.2 X10*3/uL [facility] NRBC Abs Auto 0.000 0.0 - 0.012 X10*3/uL [facility] 06/05/2024 11:2 0 AM EDT 06/05/2024 11:20 AM EDT Generic External Data Provider LAB BLOOD ORDERAB LES Final Result Performing Organization Address [facility] Co de Phone Number [facility] [address] [place] [phone] * Partial Thromboplastin Time, Activated (APTT) (06/05/2024 11:20 AM EDT) Partial Thromboplastin Time 29.3 26.0 - 36.8 SEC [facility] Comment:For information rega rding the monitoring of direct thrombininhibitors, please refer to Pharmacy. 06/05/2024 11:2 0 AM EDT 06/05/2024 11:20 AM EDT Generic External Data Provider LAB BLOOD ORDERAB LES Final Result Performing Organization Address [facility] Co de Phone Number [facility] [address] [place] [phone] * Prothrombin Time-INR (06/05/2024 11:20 AM EDT) Prothrombin Time 11.3 10.9 - 12.4 SEC [facility] INTERNATIONAL NORM RATIO 1.0 0.9 - 1.1 [facility] Comment:INTERNATIONAL NORMAL IZED RATIO (INR) [...] ORDERAB LES Final Result Performing Organization Address City/[facility]/ZIP Co de Phone Number [facility] [address] [place] [phone] * (ABNORMAL) Comprehensive Metabolic Panel (06/05/2024 11:20 AM EDT) Sodium 140 135 - 145 mmol/L [facility] Potassium 4.5 3.3 - 5.1 mmol/L [facility] Chloride 106 96 - 108 mmol/L [facility] Carbon Dioxide 30(H) 22 - 29 mmol/L [facility] Anion Gap 9(L) 12 - 20 [facility] Urea Nitrogen (BUN) 19(H) 9 - 16 mg/dL [facility] Creatinine, Serum 0.67 0.5 - 1.4 mg/dL [facility] Creatinine Clr Calc Pharmacy TNP [facility] Comment:Unable to calculate eCrCL; all parameters not provided. Estimated Glomerular Filt Rate >60 [facility] Comment:Chronic Kidney Disea se: Estimated GFR < 60 mL/min/1.97f9Umsrjy Kidney Disease: Estimated GFR < 15 mL/min/1.73m2 Glucose 89 60 - 115 mg/dL [facility] Calcium 9.1 8.4 - 10.2 mg/dL [facility] Bilirubin, Total 0.9 0.0 - 1.0 mg/dL [facility] Aspartate Amino Transferase 21 5 - 31 U/L [facility] Alanine Aminotransferase 11 0 - 31 U/L [facility] Total Protein 7.8 6.5 - 8.0 g/dL [facility] Albumin Level 4.2 3.5 - 5.0 g/dL [facility] Alkaline Phosphatase 71 39 - 117 U/L [facility] 06/05/2024 11:2 0 AM EDT 06/05/2024 11:20 AM EDT us Generic External Data Provider LAB BLOOD ORDERAB LES Final Result Performing Organization Address City/[facility]/ZIP Co de Phone Number [facility] [address] [place] [phone] * (ABNORMAL) Lipid Panel, Standard (02/24/2024 8:29 AM EST) Triglycerides 61 <150 mg/dL [facility] Comment:Desirable Triglyceri de: less than 150 mg/dLBorderline High Triglyceride 150-199 mg/dLHigh Triglyceride: 200-499 mg/dLVery High Triglyceride: greater than or equal to 5OO mg/dL Cholesterol 187 <200 mg/dL [facility] Comment:Desirable Cholestero l: less than 200 mg/dLBorderline High Cholesterol: 200-239 mg/dLHigh Cholesterol: greater than 239 mg/dL LDL Cholesterol Calculated 110(H) <100 mg/dL [facility] Comment:Desirable LDL: less than 100 mg/dLNear Optimal/Above Optimal LDL: 110- 129 mg/dLBorderline High LDL: 130-159 mg/dLHigh LDL: 160-189 mg/dLVery High LDL: greater than or equal to 190 mg/dL HDL Cholesterol 65 >40 mg/dL [facility] Comment:Desirable HDL: great er than 40 mg/dL Note: This HDL assay may give artificially low results in patients with liver disease. 02/24/2024 8:29 AM EST 02/24/2024 8:29 AM EST us Generic External Data Provider LAB BLOOD ORDERAB LES Final Result [facility] [address] [place] [phone] * Pap Smear (12/29/2022 2:49 PM EST) 12/29/2022 2:49 PM EST 01/03/2023 7:00 AM EST Narrative [facility] - 01/13/2023 4:11 PM EST ----- ------- Name: Serenity Gómez Age/Sex: 47/F : 1975 Unit#: [id number] Attend Dr: Chalino Benton MD Re12/29/22 Status: [facility] REF Location: [facility] Disch: ----- ------- SPEC : [id number] RECD: 01/03/23-699 STATUS: [employer]AN NUM: [id number] AN: 12/29/22-[address] [facility] [address]: Chalino Benton MD ENTERED: 01/04/23-1316 SP [...] 59, 66, 68) HPV testing performed by [employer], [place], [place]. See reference laboratory portion of the EMR for entire report. Clinical Information LMP: Postmenopausal Previous PAP test: 2021, ASCUS, HPV+ Material Received ThinPrep-Cervical Copies To: Basilia Colon MD [address] [place] [address] [phone] Chalino Benton MD [address] [place] [address] [address] ----- ------- Signed (signature on file) MANUEL Uriarte (ASCP) 01/13/23 1611 ----- ------- END OF REPORT us Generic External Data Provider LAB CYTOLOGY NATHALIA GIBBONS Final Result [facility] [address] [place] [phone] * HPV E6/E7 RFLX OLGA 16 18/45 (11/11/2021 3:37 PM EDT) [facility] HPV mRNA E6/E7 rflx Not Detected Not Detected [facility] Comment: Methodology: Hr Analyst-Mediated Amplification This assay detects E6/E7 viral messenger RNA (mRNA) from 14 high-risk HPV types (16,18,31,33,35,39,45,51,52,56,58,59,66,68). Cervical sources are required for HPV testing. If a vaginal source from a patient who has had a total hysterectomy with removal of cervix was submitted, please contact the testing laboratory for alternative testing options. For additional information, please refer to http://education.[employer]/faq/LIB356m5 (This link if provided for information/ educational purposes only.) THIS TEST WAS PERFORMED AT: [facility] [address] [place] [address],[place] [address] ELIZABETH ANDRES MD 11/11/2021 3:37 PM EDT us Chalino Benton MD HISTORICAL/NON ORDERABLE LABS Fi nal Result [facility] * Hm Colonoscopy (07/08/2021 9:47 AM EDT) Historical Provider HEALTH MAINTENANCE Final Result * HIV 1/2 ANTIGEN/ANTIBODY,FOURTH GENERATION W/RFL (10/17/2020 1:05 PM EDT) Pathologist [facility] HIV-1/2 ANTIGEN AND ANTIBODIES, 4TH GENERATION W/ REFLEX NON-REACT ELENA NON-REACT ELENA [facility] Comment: HIV-1 antigen and HIV-1/HIV-2 [...] purpose. For additional information please refer to http://education.[employer] Away/faq/AOJ278 (This link is being provided for informational/ educational purposes only.) The performance of this assay has not been clinically validated in patients less than 2 years old. 10/17/2020 1:05 PM EDT us Basilia Colon MD LAB BLOOD ORDERABLES Fin al Result [facility] [address] from Last 3 Months or Most Recently Relevant to Health Maintenance Insurance [employer] [facility] Care Teams Diving Instructor Relationship Specialty Start Date End Date Basilia Colon MD [address] [place] [phone] PCP - General Family Medicine 12/27/17 Tommie A 06/29/24
--- OUTSIDE RECORDS SUMMARY | 2024-08-21 08:37 | XMS_ITS | Clinical Summary ---
Author Organization [facility] Address [address] [place] [address] Care Team Providers Care Glass Loading Equipment Tender Name Role Phone Unavailable Primary Care Provider [...]
--- OUTSIDE RECORDS SUMMARY | 2024-08-21 08:37 | XMS_ITS | Clinical Summary ---
Author Organization [facility] Address [address] [place] [address] Care Team Providers Care Night Shift Manager Name Role Phone Unavailable Primary Care [...] Upcoming Encounters Date Type Department Care Team ([facility] st Contact Info) Description 09/11/2024 4:20 PM EDT Office Visit [facility] [address] [place] [phone] Thaddeus Wright, [facility] [address] [place] [address] Health Maintenance Due Date Last Done Comments [...] 08/01/2023 Imm-Zoster, Recombinant (1 of 2) 08/01/2023 [id number] ( - 2023- season) 2023 Alcohol and [...] Recently Relevant to Health Maintenance Insurance [facility]
--- NOTE | 2024-08-21 08:44 | MHC.OFFVISWM ---
Intake Visit Reasons: OV Panniculectomy 06/28/24 Allergies No Known Allergies Allergy (Verified 08/17/24 13:04) HPI Comments Details: 49-year-old female, status post panniculectomy on 06/28/2024. Developed abscess with ultimate dehiscence along the right lateral transverse incision. Culture grew MRSA. She remains on Bactrim DS 1 tab p.o. b.i.d., today is day 5 of 10. Yesterday in the office, she was complaining of some tenderness in the suprapubic region. This was indurated with some warmth and redness. CT scan was ordered, approved by her insurance company and is going to be scheduled, labs were also ordered, which she is going to get done today after her appointment this morning. She continues to per report less pain to the right and left lateral abdominal incision. Slightly less tenderness to the suprapubic region. [facility] Medical History (Updated 08/20/24 @ 13:35 by TIFFANY Fox) Excess skin History of vertigo Nephrolithiasis GERD (gastroesophageal reflux disease) Anxiety Depression BMI 39.0-39.9,adult Morbid obesity Right shoulder injury Left lateral epicondylitis Right shoulder tendonitis Carpal tunnel syndrome on both sides Normal vulvar exam Hemorrhoids Diverticulosis Tubular adenoma Encounter for screening colonoscopy Postmenopausal bleeding Well woman exam BENITO III (cervical intraepithelial neoplasia grade III) with severe dysplasia Carpal tunnel syndrome Acute arthritis Seasonal allergic rhinitis Surgical History (Updated 08/17/24 @ 13:06 by Cathy Saravia CMA) S/P panniculectomy 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) Hx of colonoscopy (07/2021) Tubal ligation status Family History Mother HTN (hypertension) A-fib Arthritis Father Diabetes HTN (hypertension) Sister Lupus Social History Household Members: Spouse Housing: House Are you a primary team primary care physician to a significant other at home: No Do you presently have visiting nurse or other home services: No Alcohol intake: current Alcohol intake frequency: does not drink Patient Tobacco Use Status: Never used Tobacco service: No Current occupational status: employed 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 No purulence appreciated. Area flushed with 50% hydrogen peroxide. The suprapubic region now has some fluctuance, approximately 1-2 cm. Left drain site with 0.5 cm depth, no purulence. No redness. Assessment & Plan Assessment & Plan (1) Post-operative wound abscess: Code(s): T81.49XA - Infection following a procedure, other surgical site, initial encounter Category: Medical Plan: Patient continues on Bactrim DS, 1 tab p.o. b.i.d.. Today is day 5 of 10. The previously large pocket has drained. We continue to pack on a daily basis with iodoform gauze. Concern for loculated area in the suprapubic region. CT scan will be scheduled as soon as possible. This may drain spontaneously. We will have the patient return to the clinic tomorrow.
== END 2024-08-21 09:13 | disposition home or self-care (01) ==
LOC: HO.HBS 08:32
PROVIDERS: PCP Internal Medicine; Visit Provider Physician Assistant Surgical
DX: T81.49XA Infection following a procedure, other surgical site, initial encounter (principal)
CPT/HCPCS: 99214

== ENCOUNTER 2024-08-21 08:31 | Outpatient (REF) | payer OTHER, SELFPAY ==
[2024-08-21 09:33] LABS: MANUAL DIFF FLAG NO
[2024-08-21 09:44] LABS: Hematocrit 34.8 % (37.0-47.0); Hemoglobin 11.6 g/dl (12.0-16.0); Imm Gran Abs Auto 0.05 X10*3/uL (0.00-0.03); Imm Gran Pct Auto 0.4 % (0.0-0.4); Lymphocytes Absolute Auto 2.1 X10*3/uL (1.2-4.9); Mean Corpuscular HGB Conc 33.3 g/dl (31.0-35.0); Mean Corpuscular Hemoglobin 29.4 pg (27.0-33.0); Mean Corpuscular Volume 88.1 fL (80.0-98.0); NRBC Abs Auto 0.000 X10*3/uL (0.0-0.012); NRBC Pct Auto 0.0 /100WBC (0.0-0.2); Platelet Count 311 X10*3/uL (160-400); Red Blood Count 3.95 X10*6/uL (4.20-5.50); White Blood Count 12.7 X10*3/uL (4.8-10.8)
== END 2024-08-21 08:32 | disposition home or self-care (01) ==
LOC: HO.LAB 08:31
PROVIDERS: PCP Internal Medicine; Visit Provider Physician Assistant Surgical
DX: T81.49XA Infection following a procedure, other surgical site, initial encounter (principal); Y83.8 Other surgical procedures as the cause of abnormal reaction of the patient, or of later complication, without mention of misadventure at the time of the procedure
CPT/HCPCS: 36415; 85025; 99212

== ENCOUNTER 2024-08-22 09:30 | Outpatient (AMB) | payer OTHER, SELFPAY ==
--- NOTE | 2024-08-22 09:36 | A.OFFVIS_ITS ---
VS Expanded 08/22/24 10:16 BP 125/73 Blood Pressure Location Rt brachial Blood Pressure Position Sitting Pulse 73 Pulse Source Pulse Oximeter Temp 97.5 F Temperature Source Temporal Artery Scan Pulse Oximetry 99 Oxygen Delivery Method Room Air Height 4 ft 11 in Weight 130 lb 9.6 oz BMI 26.4 Body Fat % 33.3 Body Fat Mass 43.4 Fat Free Mass 87.0 Visceral Fat Rating 7.0 Body Water % 47.3 Body Water Mass 61.8 Muscle Mass/Score 82.6 Basal Metabolic Rate/Score 1,197 Intake Visit Reasons: OV Panniculectomy 06/28/24 Allergies No Known Allergies Allergy (Verified 08/22/24 10:17) HPI Comments Details: 49-year-old female, status post panniculectomy on 06/28/2024. Developed abscess with ultimate dehiscence along the right lateral transverse incision. Culture grew MRSA. She remains on Bactrim DS 1 tab p.o. b.i.d., today is day 6 of 10. Last night, she had expression of pus from the midline of the incision. She gently packed this with quarter-inch packing strip. Scheduled for CT scan today [facility] Medical History (Updated 08/20/24 @ 13:35 by TIFFANY Fox) Excess skin History of vertigo Nephrolithiasis GERD (gastroesophageal reflux disease) Anxiety Depression BMI 39.0-39.9,adult Morbid obesity Right shoulder injury Left lateral epicondylitis Right shoulder tendonitis Carpal tunnel syndrome on both sides Normal vulvar exam Hemorrhoids Diverticulosis Tubular adenoma Encounter for screening colonoscopy Postmenopausal bleeding Well woman exam BENITO III (cervical intraepithelial neoplasia grade III) with severe dysplasia Carpal tunnel syndrome Acute arthritis Seasonal allergic rhinitis Surgical History S/P panniculectomy 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) Hx of colonoscopy (07/2021) Tubal ligation status Family History Mother HTN (hypertension) A-fib Arthritis Father Diabetes HTN (hypertension) Sister Lupus Social History Household Members: Spouse Housing: House Are you a primary care information associate to a significant other at home: No Do you presently have visiting nurse or other home services: No Alcohol intake: current Alcohol intake frequency: does not drink Patient Tobacco Use Status: Never used Tobacco service: No Current occupational status: employed 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 Pocket a proximally 4 cm to the right and approximately 1 cm to the left. Purulence was expressed. The cavity was flushed with 50% hydrogen peroxide and 50% normal saline. Right incision open area probed and flushed with similar solution. No purulence expressed. Both areas packed with quarter- inch iodoform packing strip covered with dressing Assessment & Plan Assessment & Plan (1) Post-operative wound abscess: Code(s): T81.49XA - Infection following a procedure, other surgical site, initial encounter Category: Medical Plan: Continue Bactrim DS 1 p.o. b.i.d.. Today is day 6 of 10. We will extend the course to 20 days therefore making this day 6 of 20. Scheduled for abdominal CAT scan today. Clinically, patient continues to feel relief. Denies any fevers or chills. We will have her return to the office tomorrow Medications: Changed From sulfamethoxazole-trimethoprim 800-160 mg (Bactrim DS) 1 tab PO BID 10 days 20 tabs 0RF To sulfamethoxazole-trimethoprim 800-160 mg (Bactrim DS) Start upon completion of the 1st prescription of this antibiotic to total a 20 day course 1 tab PO BID 20 tabs 0RF 10 days
--- OUTSIDE RECORDS SUMMARY | 2024-08-22 09:56 | XMS_ITS | Clinical Summary ---
Author Organization [employer] Address [address] [facility] [address] [place] [address] Care Team Providers Care Food Production Machine Operator Name Role Phone Basilia Colon MD Primary Care Provider + Allergies No known active allergies Medications tiZANidine (Zanaflex) 4 MG capsuleIndicati ons:Acute pain of right shoulder Take 1 capsule (4 mg) by mouth 3 times daily. 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 Resolved Problems Problem Noted Date Diagnosed Date Resolved Date Obesity (BMI 30.0-34.9) 12/27/2022 11/0 05/2023 Assessment & Plan (12/27/2022 3:25 PM EST): Status Post bariatric surgery Significant decrease in BMI Continue Multivitamins Iron + zinc supplementation F/u [facility] obesity clinic F/u in 6 mos Morbid obesity 09/03/2011 12/12/2023 Overview (12/12/2023): Sp Laparoscopic sleeve gastrectomy on 11/04/22 at [facility] Assessment & Plan (06/16/2022 11:20 AM EDT): Discussed re weight reduction options including exercise, life style modifications, diet, referral to clinical account specialist. Discussed re lower calorie intake, increase dietary fiber I gave her information about weight management program for baritric surgery Encounters Date Type Department Care Team Description 08/21/2024 Orders Only GENERIC EXTERNAL DATA DEPARTMENT Provider, Generic External Data 08/13/2024 Orders Only GENERIC EXTERNAL DATA DEPARTMENT Provider, Generic External Data 07/18/2024 Orders Only [address] [address] Basilia Colon MD 06/28/2024 Orders Only GENERIC EXTERNAL DATA DEPARTMENT Provider, Generic External Data 06/26/2024 Orders Only GENERIC EXTERNAL DATA DEPARTMENT Provider, Generic External Data 06/22/2024 11:45 AM EDT Office Visit [address] [address] Basilia Colon MD Rheumatoid arthritis involving multiple sites with positive rheumatoid factor (CMS/[facility]) (Primary Dx); Benign essential HTN; Dietary counseling; Exercise counseling; Overweight 06/22/2024 Travel 06/21/[address] [address] Basilia Colon MD chart prep 06/15/2024 Patient Outreach [address] [address] Basilia Colon MD Pre-visit Planning (SDOH screening [...] Cervical Cancer Screening 12/30/2027 HPV/Cotest 12/30/2027 11/11/2021, 06/2021, 11/11/2020, Additional history exists Pap Smear 12/30/2027 12/29/2022, 06/2020, 11/06/2020 Lipid Panel 02/23/2029 02/24/2024, 07/08, [...] Diagnosis Comments CBC WITH AUTO DIFFERENTIAL Routine 08/21/2024 9:32 AM EDT GRAM STAIN RESULT (NON ORDERABLE) Routine 08/13/2024 [...] Relevant to Health Maintenance Results * (ABNORMAL) CBC auto differential (08/21/2024 9:32 AM EDT) Only the most recent of2 resultswithin the time period is included. White Blood Count 12.7(H) 4.8 - 10.8 X10*3/uL [facility] Red Blood Count 3.95(L) 4.20 - 5.50 X10*6/uL [facility] Hemoglobin 11.6(L) 12.0 - 16.0 g/dl [facility] Hematocrit 34.8(L) 37.0 - 47.0 % [facility] Mean Corpuscular Volume 88.1 80.0 - 98.0 fL [facility] Mean Corpuscular Hemoglobin 29.4 27.0 - 33.0 pg [facility] Mean Corpuscular HGB Conc 33.3 31.0 - 35.0 g/dl [facility] Red Cell Distribution Width 11.8 11.0 - 16.0 % [facility] Platelet Count 311 160 - 400 X10*3/uL [facility] Mean Platelet Volume 9.4 9.4 - 12.3 fL [facility] Neutrophils Percent Auto 73.1(H) 45 - 73 % [facility] Imm Gran Pct Auto 0.4 0.0 - 0.4 % [facility] Lymphocytes Percent Auto 16.8(L) 20 - 40 % [facility] Monocytes Percent Auto 9.1 2 - 11 % [facility] Eosinophils Percent Auto 0.4 0 - 4 % [facility] Basophils Percent Auto 0.2 0 - 2 % [facility] NRBC Pct Auto 0.0 0.0 - 0.2 /100WBC [facility] Neutrophils Absolute Auto 9.3(H) 2.0 - 8.3 x10*3/uL [facility] Imm Gran Abs Auto 0.05(H) 0.00 - 0.03 X10*3/uL [facility] Lymphocytes Absolute Auto 2.1 1.2 - 4.9 X10*3/uL [facility] Monocytes Absolute Auto 1.2 0.1 - 1.2 X10*3/uL [facility] Eosinophils Absolute Auto 0.1 0.0 - 0.4 X10*3/uL [facility] Basophils Absolute Auto 0.0 0.0 - 0.2 X10*3/uL [facility] NRBC Abs Auto 0.000 0.0 - 0.012 X10*3/uL [facility] 08/21/2024 9:32 AM EDT 08/21/2024 9:32 AM EDT Generic External Data Provider LAB BLOOD ORDERAB LES Final Result Performing Organization Address [facility] de Phone Number [facility] [address] [place] [phone] * Gram Stain Result (08/13/2024 2:00 PM EDT) 08/13/2024 2:00 PM EDT 08/13/2024 2:20 PM EDT Comment:Abdomen Narrative [facility] - 08/16/2024 8:01 AM EDT [...] Staph Aureus: Vancomycin <=0.5(S) Specimen Source: Abdomen Generic External Data Provider HISTORICAL/NON OR DERABLE LABS Final Result Performing Organization Address [facility] de Phone Number [facility] [address] [place] [phone] * BI Mammogram Screening Tomosynthesis Bilateral (07/18/2024 12:10 PM EDT) Anatomical Region Laterality Modality Breast Bilateral Mammography 07/18/2024 12:1 0 PM EDT Narrative 07/27/2024 1:14 PM EDT [facility] [address] [place] [address] Mammography Report Signed Patient: Serenity Gómez MR#: [id number] : 1975 Acct:[id number] Age/Sex: 48 / F ADM Date: 07/18/24 Loc: HO.MAMMO Attending Dr: Basilia Colon MD Ordering Physician: Basilia Colon MD Results: 1Ne gative Date of Service: 07/18/24 Follow Up: 1 Year From Orig ina Mammogram Procedure(s): MM tomosynthesis screening BI Accession Number(s): [id number] cc: Basilia Colon MD EXAMINATION: MM SCREENING [...] 07/27/24 1311 DD/ 1210 TD/TT: 07/18/24 1230 Paper Machine Tender: Procedure Note Donotalmainterpreter, Image - 07/[facility] [address] [place] [address] Mammography Report Signed Patient: Serenity Gómez MMR#: [id number] : 1975Acct:[id number] Age/Sex: 48 / FADM Date: 07/18/24 Loc: HO.MAMMO Attending Dr: Basilia Colon MD Ordering Physician: Basilia Colon MDResults: 1Ne gative Date of Service: 07/18/24Follow Up: 1 Year From Orig inal Mammogram Procedure(s): MM tomosynthesis screening BI Accession Number(s): [id number] cc: Basilia Colon MD EXAMINATION: MM SCREENING [...] 07/27/24 1311 DD/ 1210 TD/TT: 07/18/24 1230 Paper Machine Tender: Basilia Colon MD IMG BI PROCEDURES Final Result * Gross and Microscopic Level 3 (06/28/2024 12:08 PM EDT) 06/28/2024 12:0 8 PM EDT 06/28/2024 2:20 PM EDT [facility] - 06/29/2024 4:30 PM EDT ----- ------- Name: Serenity Gómez Age/Sex: 48/F : 1975 Unit#: [id number] Attend Dr: Roel Monzon MD Re06/28/24 Status: [facility] Location: [facility] Disch: ----- ------- SPEC : [id number] RECD: 06/28/24-142 STATUS: ANA MARÍA FERRERA NUM: [id number] AN: 06/28/24-[address]: Roel Monzon MD ENTERED: 06/28/24-9937 SP TYPE: Surgical OTHR DR: Basilia Colon [...] distinct cysts, lesions or nodules are identified. Feed Weigher sections are submitted in cassettes A1-A3. CEDS [...] testing. Copies To: Basilia Colon MD [address] [id number] CONTINUED ON NEXT PAGE ----- ------- Name: Serenity Gómez Age/Sex: 48/F : 1975 Unit#: [id number] Attend Dr: Roel Monzon MD Re06/28/24 Status: [facility] Location: [facility] Disch: ----- ------- SPEC : [id number] RECD: 06/28/24 STATUS: ANA MARÍA FERRERA NUM: [id number] AN: 06/28/24-[address]: Roel Monzon MD ENTERED: 06/28/24 SP TYPE: Surgical OTHR DR: Basilia Colon MD ORDERED: Gross Micro L3 Copies To: (Continued) Roel Moznon MD [facility] [address] [place] [phone] ----- ------- Signed (signature on file) Guillermina Wakefield MD 06/29/24 1630 ----- ------- END OF REPORT us Generic External Data Provider LAB CYTOLOGY NATHALIA GIBBONS Final Result [facility] [address] [place] [phone] * Type and screen (06/26/2024 10:45 AM EDT) Blood Type AP [facility] Antibody Screen NEGATIVE [facility] 06/26/2024 10:4 5 AM EDT 06/26/2024 11:00 AM EDT Narrative [facility] - 06/26/2024 11:37 AM EDT witnessed by graciasNURSING:Call Blood Bank (ext. [phone]) to band patient on admission.Type and Screen in effect until 2300 on 06-28-2024 Generic External Data Provider LAB BLOOD BANK TE ST ORDERABLES Final Result Performing Organization Address [facility]/ZIP Co de Phone Number [facility] [address] [place] [phone] * Partial Thromboplastin Time, Activated (APTT) (06/05/2024 11:20 AM EDT) Partial Thromboplastin Time 29.3 26.0 - 36.8 SEC [facility] Comment:For information rega rding the monitoring of direct thrombininhibitors, please refer to Pharmacy. 06/05/2024 11:2 0 AM EDT 06/05/2024 11:20 AM EDT Generic External Data Provider LAB BLOOD ORDERAB LES Final Result Performing Organization Address [facility]/ZIP Co de Phone Number [facility] [address] [place] [phone] * Prothrombin Time-INR (06/05/2024 11:20 AM EDT) Prothrombin Time 11.3 10.9 - 12.4 SEC [facility] INTERNATIONAL NORM RATIO 1.0 0.9 - 1.1 [facility] Comment:INTERNATIONAL NORMAL IZED RATIO (INR) [...] Provider LAB BLOOD ORDERAB LES Final Result [facility] [address] [place] [phone] * (ABNORMAL) Comprehensive Metabolic Panel (06/05/2024 11:20 AM EDT) Sodium 140 135 - 145 mmol/L [facility] Potassium 4.5 3.3 - 5.1 mmol/L [facility] Chloride 106 96 - 108 mmol/L [facility] Carbon Dioxide 30(H) 22 - 29 mmol/L [facility] Anion Gap 9(L) 12 - 20 [facility] Urea Nitrogen (BUN) 19(H) 9 - 16 mg/dL [facility] Creatinine, Serum 0.67 0.5 - 1.4 mg/dL [facility] Creatinine Clr Calc Pharmacy TNP [facility] Comment:Unable to calculate eCrCL; all parameters not provided. Estimated Glomerular Filt Rate >60 [facility] Comment:Chronic Kidney Disea se: Estimated GFR < 60 mL/min/1.65q7Vavibb Kidney Disease: Estimated GFR < 15 mL/min/1.73m2 Glucose 89 60 - 115 mg/dL [facility] Calcium 9.1 8.4 - 10.2 mg/dL [facility] Bilirubin, Total 0.9 0.0 - 1.0 mg/dL [facility] Aspartate Amino Transferase 21 5 - 31 U/L [facility] Alanine Aminotransferase 11 0 - 31 U/L [facility] Total Protein 7.8 6.5 - 8.0 g/dL [facility] Albumin Level 4.2 3.5 - 5.0 g/dL [facility] Alkaline Phosphatase 71 39 - 117 U/L [facility] 06/05/2024 11:2 0 AM EDT 06/05/2024 11:20 AM EDT us Generic External Data Provider LAB BLOOD ORDERAB LES Final Result Performing Organization Address [facility] Co de Phone Number [facility] [address] [place] [phone] * (ABNORMAL) Lipid Panel, Standard (02/24/2024 8:29 AM EST) Triglycerides 61 <150 mg/dL [facility] Comment:Desirable Triglyceri de: less than 150 mg/dLBorderline High Triglyceride 150-199 mg/dLHigh Triglyceride: 200-499 mg/dLVery High Triglyceride: greater than or equal to 5OO mg/dL Cholesterol 187 <200 mg/dL [facility] Comment:Desirable Cholestero l: less than 200 mg/dLBorderline High Cholesterol: 200-239 mg/dLHigh Cholesterol: greater than 239 mg/dL LDL Cholesterol Calculated 110(H) <100 mg/dL [facility] Comment:Desirable LDL: less than 100 mg/dLNear Optimal/Above Optimal LDL: 110- 129 mg/dLBorderline High LDL: 130-159 mg/dLHigh LDL: 160-189 mg/dLVery High LDL: greater than or equal to 190 mg/dL HDL Cholesterol 65 >40 mg/dL [facility] Comment:Desirable HDL: great er than 40 mg/dL Note: This HDL assay may give artificially low results in patients with liver disease. 02/24/2024 8:29 AM EST 02/24/2024 8:29 AM EST us Generic External Data Provider LAB BLOOD ORDERAB LES Final Result Performing Organization Address [facility]/ZIP Co de Phone Number [facility] [address] [place] [phone] * Pap Smear (12/29/2022 2:49 PM EST) 12/29/2022 2:49 PM EST 01/03/2023 7:00 AM EST Zenaida [facility] - 01/13/2023 4:11 PM EST ----- ------- Name: Serenity Gómez Age/Sex: 47/F : 1975 Unit#: [id number] Attend Dr: Chalino Benton MD Re12/29/22 Status: DEP REF Location: [facility] Disch: ----- ------- SPEC : [id number] RECD: 01/03/23 STATUS: ANA MARÍA FERRERA NUM: [id number] AN: 12/29/22-[address] [facility] [address]: Chalino Benton MD ENTERED: 01/04/23-1317 SP TYPE: Pap [facility] DR: Basilia Colon MD ORDERED: Pap Smear Interpretation Satisfactory for evaluation. Negative for intraepithelial lesion or malignancy. HPV mRNA E6/E7: NOT DETECTED This assay detects E6/E7 viral messenger RNA (mRNA) from 14 high-risk HPV types (16, 18, 31, 33, 35, 39, 45, 51, 52, 56, 58, 59, 66, 68) HPV testing performed by [facility], [place], [place]. See reference laboratory portion of the EMR for entire report. Clinical Information LMP: Postmenopausal Previous PAP test: 2021, ASCUS, HPV+ Material Received ThinPrep-Cervical Copies To: Basilia Colon MD [address] [place] [address] [place] [address] Chalino Benton MD [address] [place] [address] [place] [address] ----- ------- Signed (signature on file) MANUEL Uriarte ([facility]) 01/13/23 1611 ----- ------- END OF REPORT us Generic External Data Provider LAB CYTOLOGY NATHALIA GIBBONS Final Result [facility] [address] [place] [phone] * HPV E6/E7 RFLX OLGA 16 18/45 (11/11/2021 3:37 PM EDT) HPV mRNA E6/E7 rflx Not Detected Not Detected [facility] Comment: Methodology: Compounder-Mediated Amplification This assay detects E6/E7 viral messenger RNA (mRNA) from 14 high-risk HPV types (16,18,31,33,35,39,45,51,52,56,58,59,66,68). Cervical sources are required for HPV testing. If a vaginal source from a patient who has had a total hysterectomy with removal of cervix was submitted, please contact the testing laboratory for alternative testing options. For additional information, please refer to http://education.Picitup/faq/HLG016s0 (This link if provided for information/ educational purposes only.) THIS TEST WAS PERFORMED AT: [facility] [address] [place] [address] [address] [phone] ELIZABETH ANDRES MD 11/11/2021 3:37 PM EDT Chalino Benton MD HISTORICAL/NON ORDERABLE LABS Fi nal Result Performing Organization Address City/[facility]/ZIP Co de Phone Number [facility] [...] purpose. For additional information please refer to http://education.[employer].Noster Mobile/faq/QUI551 (This link is being provided for informational/ educational purposes only.) The performance of this assay has not been clinically validated in patients less than 2 years old. 10/17/2020 1:05 PM EDT us Basilia Colon MD LAB BLOOD ORDERABLES Fin al Result [facility] [address] from Last 3 Months or Most Recently Relevant to Health Maintenance Insurance [employer] [facility] Care Teams Food Production Machine Operator Relationship Specialty Start Date End Date Basilia Colon MD [address] [place] [phone] PCP - General Family Medicine 12/27/17 Tommie Andrews 06/29/24
--- OUTSIDE RECORDS SUMMARY | 2024-08-22 09:56 | XMS_ITS | Clinical Summary ---
Author Organization [facility] Address [address] [place] [address] Care Team Providers Care Edge Trimmer Mechanic Name Role Phone Unavailable Primary Care [...]
--- OUTSIDE RECORDS SUMMARY | 2024-08-22 09:57 | XMS_ITS | Clinical Summary ---
Author Organization [facility] Address [address] [place] [address] Care Team Providers Care Bonbon Cream Warmer Name Role Phone Unavailable Primary Care Provider [...] [facility] [address] [place] [phone] Thaddeus Wright, [facility] [address] [place] [address] Health Maintenance Due Date Last Done Comments [...] 08/01/2023 Imm-Zoster, Recombinant (1 of 2) 08/01/2023 [id number] ( - 2023- season) 2023 Alcohol and [...] Recently Relevant to Health Maintenance Insurance [facility]
[2024-08-22 10:16] VITALS: BP 125/73; PULSE 73; TEMP 36.4; O2SAT 99; BMI 26.4
== END 2024-08-22 10:27 | disposition home or self-care (01) ==
LOC: HO.HBS 09:31
PROVIDERS: PCP Internal Medicine; Visit Provider Physician Assistant Surgical
DX: T81.49XA Infection following a procedure, other surgical site, initial encounter (principal)
CPT/HCPCS: 99214

== ENCOUNTER 2024-08-22 11:16 | Outpatient (REF) | payer OTHER, SELFPAY ==
--- NOTE | ~2024-08-22 | CT_ITS ---
EXAMINATION: CT ABDOMEN PELVIS WITHOUT IV CONTRAST HISTORY: Z98.890 - Other specified postprocedural states COMPARISON: There are no prior studies available for comparison. TECHNIQUE: CT scan of the abdomen and pelvis was performed without contrast using standard departmental protocol. Coronal and sagittal reformatted images were generated and reviewed. Oral contrast material was not administered at the request of the referring physician. This CT exam was performed with one or more of the following dose reduction techniques: automated exposure control, adjustment of the mA and/or kV according to patient size, use of iterative reconstruction technique. DLP: 392 mGy-cm FINDINGS: LOWER CHEST: The visualized lung bases are clear. There is no pleural effusion. CARDIOVASCULATURE: The heart is normal in size. There is no pericardial effusion. LIVER: The liver is normal in size and contour. The liver has an unremarkable unenhanced appearance. GALLBLADDER / BILE DUCTS: The gallbladder is unremarkable. There is no intra or extrahepatic biliary ductal dilatation. SPLEEN: The spleen is normal in size and has an unremarkable unenhanced appearance. PANCREAS: The pancreas has an unremarkable unenhanced appearance. ADRENAL GLANDS: Unremarkable. KIDNEYS/RETROPERITONEUM: Innumerable punctate bilateral renal calculi are identified. There is no hydronephrosis. LYMPH NODES: No retroperitoneal lymphadenopathy is identified in the abdomen or pelvis. VASCULATURE: The abdominal aorta is normal in caliber. MESENTERY/PERITONEUM: No free fluid. No masses. There is no free intraperitoneal gas. STOMACH: There are postsurgical changes involving the stomach, which contains a large amount of debris. SMALL BOWEL: The small bowel is normal in caliber. COLON: The colon is unremarkable. APPENDIX: The appendix is not seen, however no inflammatory changes are seen adjacent to the cecum. URINARY BLADDER/PELVIC ORGANS: The urinary bladder is collapsed, limiting evaluation. The uterus has an unremarkable unenhanced appearance. BONES / SOFT TISSUES: There is an open wound of the anterior pelvic wall in the midline. There is diffuse infiltration of the subcutaneous fat and multiple bubbles of gas. No loculated fluid is seen. Hyperdense packing material is noted. CT/CT abdomen pelvis wo IV con IMPRESSION: 1. Open wound of the anterior pelvic wall containing packing material, with numerous bubbles of gas in the subcutaneous fat. No loculated fluid collection is identified. 2. Bilateral nephrolithiasis as described. Electronically signed by: Donavon Raymundo MD 08/22/2024 12:10 PM EDT
== END 2024-08-22 11:17 | disposition home or self-care (01) ==
LOC: HO.CT 11:16
PROVIDERS: PCP Internal Medicine; Visit Provider Physician Assistant Surgical
DX: T81.49XA Infection following a procedure, other surgical site, initial encounter (principal); Z98.890 Other specified postprocedural states
CPT/HCPCS: 74176; 99212

== ENCOUNTER → 2024-08-22 11:16 | Outpatient (BNV) | payer OTHER, SELFPAY | PROVIDERS: PCP Internal Medicine; Visit Provider Radiology Diagnostic Radiology | DX: S31.000A Unspecified open wound of lower back and pelvis without penetration into retroperitoneum, initial encounter (principal); N20.0 Calculus of kidney | CPT/HCPCS: 74176 ==

== ENCOUNTER 2024-08-23 09:26 | Outpatient (AMB) | payer OTHER, SELFPAY ==
--- NOTE | 2024-08-23 09:35 | A.OFFVIS_ITS ---
VS Expanded 08/23/24 10:14 BP 119/63 Blood Pressure Location Rt brachial Blood Pressure Position Sitting Pulse 65 Pulse Source Pulse Oximeter Temp 96.9 F Temperature Source Temporal Artery Scan Pulse Oximetry 99 Oxygen Delivery Method Room Air Height 4 ft 11 in Weight 129 lb 12 oz BMI 26.2 Body Fat % 32.5 Body Fat Mass 42.2 Fat Free Mass 87.6 Visceral Fat Rating 7.0 Body Water % 48.0 Body Water Mass 62.2 Muscle Mass/Score 83.2 Basal Metabolic Rate/Score 1,200 Intake Visit Reasons: OV Panniculectomy 06/28/24 Allergies No Known Allergies Allergy (Verified 08/23/24 10:21) HPI Comments Details: 49-year-old female returns to the office today in follow-up. She is status post panniculectomy on 06/28/2024 with postoperative abscess. This is being treated with Bactrim, day 7 of . Culture grew MRSA. Resistant to tetracycline. She had a CT scan of the abdomen yesterday showing no further fluid collections, several pockets of air. She did have distended stomach. She thought that she was supposed to have 1 scoop of orgain in the morning, followed by a fit crunch bar followed by another shake followed by her dinner of 4 forks protein and 4 forks vegetables. She did not have the 3rd shake. Her meal plan was changed yesterday: Orgain 1/2 scoop at 5-7, 8-10, 2-4, 5-7 fit crunch bar at 11-1 PFSH Medical History (Updated 08/20/24 @ 13:35 by TIFFANY Fox) Excess skin History of vertigo Nephrolithiasis GERD (gastroesophageal reflux disease) Anxiety Depression BMI 39.0-39.9,adult Morbid obesity Right shoulder injury Left lateral epicondylitis Right shoulder tendonitis Carpal tunnel syndrome on both sides Normal vulvar exam Hemorrhoids Diverticulosis Tubular adenoma Encounter for screening colonoscopy Postmenopausal bleeding Well woman exam BENITO III (cervical intraepithelial neoplasia grade III) with severe dysplasia Carpal tunnel syndrome Acute arthritis Seasonal allergic rhinitis Surgical History S/P panniculectomy 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) Hx of colonoscopy (07/2021) Tubal ligation status Family History Mother HTN (hypertension) A-fib Arthritis Father Diabetes HTN (hypertension) Sister Lupus Social History Household Members: Spouse Housing: House Are you a primary caregivers non medical to a significant other at home: No Do you presently have visiting nurse or other home services: No Alcohol intake: current Alcohol intake frequency: does not drink Patient Tobacco Use Status: Never used Tobacco service: No Current occupational status: employed 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 Both areas were flushed with 50% hydrogen peroxide 50% saline. Quarter-inch iodoform packing strip was applied, moistened gauze, dry clean dressing. Assessment & Plan Assessment & Plan (1) Post-operative wound abscess: Code(s): T81.49XA - Infection following a procedure, other surgical site, initial encounter Category: Medical Plan: Continue current wound management. Continue antibiotics, day 7 of 20. Continue monitoring meal plan and return to clinic tomorrow
--- OUTSIDE RECORDS SUMMARY | 2024-08-23 09:44 | XMS_ITS ---
: 1975 Acct:[id number] Age/Sex: 48 / F ADM Date: 07/18/24 Loc: HO.MAMMO Attending Dr: Basilia Colon MD Ordering Physician: Basilia Colon MD Results: 1Ne gatricha Date of Service: 07/18/24 Follow Up: 1 Year From Orig inal Mammogram Procedure(s): MM tomosynthesis screening BI Accession Number(s): [id number] cc: Basilia Colon MD EXAMINATION: MM SCREENING [...] 07/27/24 1311 DD/ 1210 TD/TT: 07/18/24 1230 Men'S Designer: Procedure Note Donotuseinterpreter, Image - 07/27/2024 Tommie [facility] [address] [place] [address] Mammography Report Signed Patient: Serenity Gómez [facility]#: [id number] : 1975Acct:[id number] Age/Sex: 48 / FADM Date: 07/18/24 Loc: HO.MAMMO Attending Dr: Basilia Colon MD Ordering Physician: Basilia Colon MDResults: 1Ne gative Date of Service: 07/18/24Follow Up: 1 Year From Orig inal Mammogram Procedure(s): MM tomosynthesis screening BI Accession Number(s): [id number] cc: Basilia Colon MD EXAMINATION: MM SCREENING [...] 07/27/24 1311 DD/ 1210 TD/TT: 07/18/24 1230 Men'S Designer: Basilia Colon MD IMG BI PROCEDURES Final Result * Gross and Microscopic Level 3 (06/28/2024 12:08 PM EDT) 06/28/2024 12:0 8 PM EDT 06/28/2024 2:20 PM EDT [facility] - 06/29/2024 4:30 PM EDT ----- ------- Name: Serenity Gómez Age/Sex: 48/F : 1975 Unit#: [id number] Attend Dr: Roel Monzon MD Re06/28/24 Status: [facility] Location: [facility] Disch: ----- ------- SPEC : [id number] RECD: 06/28/24-1420 STATUS: ANA MARÍA FERRERA NUM: [id number] AN: 06/28/24-[address]: Roel Monzon MD ENTERED: 06/28/24-4330 SP TYPE: Surgical OTHR DR: Basilia Colon [...] distinct cysts, lesions or nodules are identified. Buy Boat Operator sections are submitted in cassettes A1-A3. CEDS IHC S/NG Disclaimer NOTE: Unless otherwise stated, all tissue is formalin-fixed and paraffin-embedded. Some or all of the immunohistochemical tests reported herein may have been developed and their performance characteristics determined by [facility]. They have not been cleared or approved by the U.S. Food and Drug Administration (FDA). However, the FDA has determined that such clearance or approval is not necessary. This laboratory is certified under the Clinical Laboratory Improvement Amendments of 1988 (CLIA) as qualified to perform high complexity clinical laboratory testing. Copies To: Basilia Colon MD [address] [address] CONTINUED ON NEXT PAGE ----- ------- Name: BarreraSerenity Kaiser Age/Sex: 48/F : 1975 Unit#: [id number] Attend Dr: Roel Monzon MD Re06/28/24 Status: [facility] Location: [facility] Disch: ----- ------- SPEC : [id number] RECD: 06/28/24-414 STATUS: ANA MARÍA FERRERA NUM: [id number] AN: 06/28/24-12[address] [facility] [address]: Roel Monzon MD ENTERED: 06/28/240059 SP TYPE: Surgical OTHR DR: Basilia Colon MD ORDERED: Gross Micro L3 Copies To: (Continued) Roel Monzon MD [facility] [address] [place] [phone] ----- ------- Signed (signature on file) Guillermina Wakefield MD 06/29/24 1630 ----- ------- END OF REPORT us Generic External Data Provider LAB CYTOLOGY NATHALIA GIBBONS Final Result [facility] [address] [place] [phone] * Type and screen (06/26/2024 10:45 AM EDT) Blood Type AP [facility] Antibody Screen NEGATIVE [facility] 06/26/2024 10:4 5 AM EDT 06/26/2024 11:00 AM EDT Narrative [facility] - 06/26/2024 11:37 AM EDT witnessed by graciasNURSING:Call Blood Bank (ext. [phone]) to band patient on admission.Type and Screen in effect until 2300 on 06-28-2024 Generic External Data Provider LAB BLOOD BANK TE ST ORDERABLES Final Result Performing Organization Address [facility] Co de Phone Number [facility] [address] [place] [phone] * Partial Thromboplastin Time, Activated (APTT) (06/05/2024 11:20 AM EDT) Partial Thromboplastin Time 29.3 26.0 - 36.8 SEC [facility] Comment:For information rega rding the monitoring of direct thrombininhibitors, please refer to Pharmacy. 06/05/2024 11:2 0 AM EDT 06/05/2024 11:20 AM EDT Generic External Data Provider LAB BLOOD ORDERAB LES Final Result Performing Organization Address [facility] de Phone Number [facility] [address] [place] [phone] * Prothrombin Time-INR (06/05/2024 11:20 AM EDT) Prothrombin Time 11.3 10.9 - 12.4 SEC [facility] INTERNATIONAL NORM RATIO 1.0 0.9 - 1.1 [facility] Comment:INTERNATIONAL NORMAL IZED RATIO (INR) [...] ORDERAB LES Final Result Performing Organization Address [facility] Co de Phone Number [facility] [address] [place] [phone] * (ABNORMAL) Comprehensive Metabolic Panel (06/05/2024 11:20 AM EDT) Sodium 140 135 - 145 mmol/L [facility] Potassium 4.5 3.3 - 5.1 mmol/L [facility] Chloride 106 96 - 108 mmol/L [facility] Carbon Dioxide 30(H) 22 - 29 mmol/L [facility] Anion Gap 9(L) 12 - 20 [facility] Urea Nitrogen (BUN) 19(H) 9 - 16 mg/dL [facility] Creatinine, Serum 0.67 0.5 - 1.4 mg/dL [facility] Creatinine Clr Calc Pharmacy TNP [facility] Comment:Unable to calculate eCrCL; all parameters not provided. Estimated Glomerular Filt Rate >60 [facility] Comment:Chronic Kidney Disea se: Estimated GFR < 60 mL/min/1.57e5Fvzqjv Kidney Disease: Estimated GFR < 15 mL/min/1.73m2 Glucose 89 60 - 115 mg/dL [facility] Calcium 9.1 8.4 - 10.2 mg/dL [facility] Bilirubin, Total 0.9 0.0 - 1.0 mg/dL [facility] Aspartate Amino Transferase 21 5 - 31 U/L [facility] Alanine Aminotransferase 11 0 - 31 U/L [facility] Total Protein 7.8 6.5 - 8.0 g/dL [facility] Albumin Level 4.2 3.5 - 5.0 g/dL [facility] Alkaline Phosphatase 71 39 - 117 U/L [facility] 06/05/2024 11:2 0 AM EDT 06/05/2024 11:20 AM EDT us Generic External Data Provider LAB BLOOD ORDERAB LES Final Result [facility] [address] [place] [phone] * (ABNORMAL) Lipid Panel, Standard (02/24/2024 8:29 AM EST) Triglycerides 61 <150 mg/dL [facility] Comment:Desirable Triglyceri de: less than 150 mg/dLBorderline High Triglyceride 150-199 mg/dLHigh Triglyceride: 200-499 mg/dLVery High Triglyceride: greater than or equal to 5OO mg/dL Cholesterol 187 <200 mg/dL [facility] Comment:Desirable Cholestero l: less than 200 mg/dLBorderline High Cholesterol: 200-239 mg/dLHigh Cholesterol: greater than 239 mg/dL LDL Cholesterol Calculated 110(H) <100 mg/dL [facility] Comment:Desirable LDL: less than 100 mg/dLNear Optimal/Above Optimal LDL: 110- 129 mg/dLBorderline High LDL: 130-159 mg/dLHigh LDL: 160-189 mg/dLVery High LDL: greater than or equal to 190 mg/dL HDL Cholesterol 65 >40 mg/dL [facility] Comment:Desirable HDL: great er than 40 mg/dL Note: This HDL assay may give artificially low results in patients with liver disease. 02/24/2024 8:29 AM EST 02/24/2024 8:29 AM EST us Generic External Data Provider LAB BLOOD ORDERAB LES Final Result [facility] [address] [place] [phone] * Pap Smear (12/29/2022 2:49 PM EST) 12/29/2022 2:49 PM EST 01/03/2023 7:00 AM EST Narrative [facility] - 01/13/2023 4:11 PM EST ----- ------- Name: Serenity Gómez Age/Sex: 47/F : 1975 Unit#: [id number] Attend Dr: Chalino Benton MD Re12/29/22 Status: DEP REF Location: [facility] Disch: ----- ------- SPEC : [id number] RECD: 01/03/23 STATUS: ANA MARÍA FERRERA NUM: [id number] AN: 12/29/22-1448 [facility] [address]: Chalino Benton MD ENTERED: [...] 59, 66, 68) HPV testing performed by [employer], [place], [place]. See reference laboratory portion of the EMR for entire report. Clinical Information LMP: Postmenopausal Previous PAP test: 2021, ASCUS, HPV+ Material Received ThinPrep-Cervical Copies To: Basilia Colon MD [address] [place] [address] [phone] Chalino Benton MD [address] [place], [place] [address] [address] ----- ------- Signed (signature on file) MANUEL Uriarte (ASCP) 01/13/23 1611 ----- ------- END OF REPORT Generic External Data Provider LAB CYTOLOGY NATHALIA GIBBONS Final Result Performing Organization Address City/[facility] Co de Phone Number [facility] [address] [place] [phone] * HPV E6/E7 RFLX OLGA 16 18/45 (11/11/2021 3:37 PM EDT) Pathologist [facility] HPV mRNA E6/E7 rflx Not Detected Not Detected [facility] Comment: Methodology: Personal Financial Planner-Mediated Amplification This assay detects E6/E7 viral messenger RNA (mRNA) from 14 high-risk HPV types (16,18,31,33,35,39,45,51,52,56,58,59,66,68). Cervical sources are required for HPV testing. If a vaginal source from a patient who has had a total hysterectomy with removal of cervix was submitted, please contact the testing laboratory for alternative testing options. For additional information, please refer to http://education.Extra Life/faq/DHO747t8 (This link if provided for information/ educational purposes only.) THIS TEST WAS PERFORMED AT: [facility] [address] [place] [address],[place] [address] ELIZABETH ANDRES MD 11/11/2021 3:37 PM EDT Chalino Benton MD HISTORICAL/NON ORDERABLE LABS Fi nal Result Performing Organization Address City/State/[facility] Co de Phone Number [facility] * Hm Colonoscopy (07/08/2021 9:47 AM EDT) Historical Provider HEALTH MAINTENANCE Final Result * HIV 1/2 ANTIGEN/ANTIBODY,FOURTH GENERATION W/RFL (10/17/2020 1:05 PM EDT) HIV-1/2 ANTIGEN AND ANTIBODIES, 4TH GENERATION W/ REFLEX NON-REACT RICHA NON-REACT RICHA [facility] Comment: [...] purpose. For additional information please refer to http://education.HerBabyShower.UPlanMe/faq/BLG429 (This link is being provided for informational/ educational purposes only.) The performance of this assay has not been clinically validated in patients less than 2 years old. 10/17/2020 1:05 PM EDT Basilia Colon MD LAB BLOOD ORDERABLES Fin al Result Performing Organization Address [facility] Co de Phone Number [facility] [address] from Last 3 Months or Most Recently Relevant to Health Maintenance Insurance [employer]SN [employer]IAL [facility] Care Teams Outside Sales Account Executive Relationship Specialty Start Date End Date Basilia Colon MD [address] [place] [phone] PCP - General Family Medicine 12/27/17 Tommie Andrews 06/29/24
--- OUTSIDE RECORDS SUMMARY | 2024-08-23 09:44 | XMS_ITS | Clinical Summary ---
Author Organization [facility] Address [address] [place] [address] Care Team Providers Care Foreign Service Teacher Name Role Phone Unavailable Primary Care [...] Upcoming Encounters Date Type Department Care Team ([facility] st Contact Info) Description 09/11/2024 4:20 PM EDT Office Visit [facility] [address] [place] [phone] Thaddeus Wright, [facility] [address] [place] [address] Health Maintenance Due Date Last Done Comments [...] 08/01/2023 Imm-Zoster, Recombinant (1 of 2) 08/01/2023 [id number] ( - 2023- season) 2023 Alcohol and [...] Recently Relevant to Health Maintenance Insurance [facility]
--- OUTSIDE RECORDS SUMMARY | 2024-08-23 09:44 | XMS_ITS | Clinical Summary ---
[facility] Organization [facility] Address [address] [place] [address] Care Team Providers Care Centrifugal Chiller Technician Name Role Phone Unavailable Primary Care [...]
[2024-08-23 10:14] VITALS: BP 119/63; PULSE 65; TEMP 36.1; O2SAT 99; BMI 26.2
== END 2024-08-23 10:21 | disposition home or self-care (01) ==
LOC: HO.HBS 09:27
PROVIDERS: PCP Internal Medicine; Visit Provider Physician Assistant Surgical
DX: T81.49XA Infection following a procedure, other surgical site, initial encounter (principal)
CPT/HCPCS: 99213

== ENCOUNTER → 2024-08-23 09:26 | Outpatient (BNVA) | payer OTHER, SELFPAY | PROVIDERS: PCP Internal Medicine; Visit Provider Physician Assistant Surgical | DX: T81.49XA Infection following a procedure, other surgical site, initial encounter (principal); Z98.890 Other specified postprocedural states | CPT/HCPCS: 99212 ==

== ENCOUNTER 2024-08-24 13:40 | Outpatient (AMB) | payer OTHER, SELFPAY ==
--- OUTSIDE RECORDS SUMMARY | 2024-08-24 13:43 | XMS_ITS | Clinical Summary ---
Author [facility] Address [address] [place] [address] Care Team Providers Care Licensed Clinical Social Worker Name Role Phone Unavailable Primary Care [...]
--- OUTSIDE RECORDS SUMMARY | 2024-08-24 13:43 | XMS_ITS | Clinical Summary ---
Author Organization [facility] Address [address] [place] [address] Care Team Providers Care Radiology Physician Name Role Phone Unavailable Primary Care Provider [...] 4:20 PM EDT Office Visit [facility] [address] [place] [phone] Thaddeus Wright, [facility] [address] [place] [address] Health Maintenance Due Date Last Done Comments [...] 08/01/2023 Imm-Zoster, Recombinant (1 of 2) 08/01/2023 [id number] ( - 2023- season) 2023 Alcohol and Drug Screen 02/08/2024 Depression Annual Screen 02/08/2024 Hypertension Screening (#1) 02/28/2024 Tobacco Screening 08/14/2024 Imm-Influenza (#1) 2024 11/28/2020, 1 , 11/03/2010 [...]
--- OUTSIDE RECORDS SUMMARY | 2024-08-24 13:43 | XMS_ITS | Clinical Summary ---
Author Organization [employer] Address [address] [place] [address] Care Team Providers Care Management Consultant Name Role Phone Basilia Colon MD Primary Care Provider + Allergies No known active allergies Medications tiZANidine (Zanaflex) 4 MG capsuleIndicati ons:Acute pain of right shoulder Take 1 capsule (4 mg) by mouth 3 times daily. 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 Resolved Problems Problem Noted Date Diagnosed Date Resolved Date Obesity (BMI 30.0-34.9) 12/27/2022 11/0 05/2023 Assessment & Plan (12/27/2022 3:25 PM EST): Status Post bariatric surgery Significant decrease in BMI Continue Multivitamins Iron + zinc supplementation F/u [facility] obesity clinic F/u in 6 mos Morbid obesity 09/03/2011 12/12/2023 Overview (12/12/2023): Sp Laparoscopic sleeve gastrectomy on 11/04/22 at [facility] Assessment & Plan (06/16/2022 11:20 AM EDT): Discussed re weight reduction options including exercise, life style modifications, diet, referral to mental health program specialist. Discussed re lower calorie intake, increase dietary fiber I gave her information about weight management program for baritric surgery Encounters Date Type Department Care Team Description 08/22/2024 Orders Only [facility] External Provider, [facility] 08/21/2024 Orders Only GENERIC EXTERNAL DATA DEPARTMENT Provider, Generic External Data 08/13/2024 Orders Only GENERIC EXTERNAL DATA DEPARTMENT Provider, Generic External Data 07/18/2024 Orders Only [address] [address] Basilia Colon MD 06/28/2024 Orders Only GENERIC EXTERNAL DATA DEPARTMENT Provider, Generic External Data 06/26/2024 Orders Only GENERIC EXTERNAL DATA DEPARTMENT Provider, Generic External Data 06/22/2024 11:45 AM EDT Office Visit [address] [address] Basilia Colon MD Rheumatoid arthritis involving multiple sites with positive rheumatoid factor ([facility]) (Primary Dx); Benign essential HTN; Dietary counseling; Exercise counseling; Overweight 06/22/2024 Travel 06/21/[address] [address] Basilia Colon MD chart prep 06/15/2024 Patient Outreach [address] [address] Basilia Colon MD Pre-visit Planning (SDOH screening [...] Procedure Name Priority Date/Time Associated Diagnosis Comments CT ABDOMEN PELVIS WO CONTRAST Routine 08/22/2024 11:27 AM EDT CBC WITH AUTO DIFFERENTIAL Routine 08/21/2024 9:32 [...] Recently Relevant to Health Maintenance Results * CT Abdomen Pelvis w/o Contrast (08/22/2024 11:27 AM EDT) Anatomical Region Laterality Modality Body, Pelvis, Abdomen Computed T omography 08/22/2024 11:2 7 AM EDT Narrative 08/22/2024 12:13 PM EDT [place] [address] CT Scan Report Signed Patient: Serenity Gómez MR#: [id number] : 1975 Acct:[id number] Age/Sex: 49 / F ADM Date: 08/22/24 Loc: HO.CT Attending Dr: Ted ALLEN Ordering Physician: Ted Beauchamp Date of Service: 08/22/24 Procedure(s): CT abdomen pelvis wo IV con Accession Number(s): [id number] cc: Ted Beauchamp; Basilia Colon MD Report Number: [id number]: Total DLP = 392.00 mGy-cm EXAMINATION: CT ABDOMEN PELVIS WITHOUT IV CONTRAST HISTORY: Z98.890 - Other specified postprocedural states COMPARISON: There are no prior studies available for comparison. TECHNIQUE: CT scan of the abdomen and pelvis was performed without contrast using standard departmental protocol. Coronal and sagittal reformatted images were generated and reviewed. Oral contrast material was not administered at the request of the referring physician. This CT exam was performed with one or more of the following dose reduction techniques: automated exposure control, adjustment of the mA and/or kV according to patient size, use of iterative reconstruction technique. DLP: 392 mGy-cm FINDINGS: LOWER CHEST: The visualized lung bases are clear. There is no pleural effusion. CARDIOVASCULATURE: The heart is normal in size. There is no pericardial effusion. LIVER: The liver is normal in size and contour. The liver has an unremarkable unenhanced appearance. GALLBLADDER / BILE DUCTS: The gallbladder is unremarkable. There is no intra or extrahepatic biliary ductal dilatation. SPLEEN: The spleen is normal in size and has an unremarkable unenhanced appearance. PANCREAS: The pancreas has an unremarkable unenhanced appearance. ADRENAL GLANDS: Unremarkable. KIDNEYS/RETROPERITONEUM: Innumerable punctate bilateral renal calculi are identified. There is no hydronephrosis. LYMPH NODES: No retroperitoneal lymphadenopathy is identified in the abdomen or pelvis. VASCULATURE: The abdominal aorta is normal in caliber. MESENTERY/PERITONEUM: No free fluid. No masses. There is no free intraperitoneal gas. STOMACH: There are postsurgical changes involving the stomach, which contains a large amount of debris. SMALL BOWEL: The small bowel is normal in caliber. COLON: The colon is unremarkable. APPENDIX: The appendix is not seen, however no inflammatory changes are seen adjacent to the cecum. URINARY BLADDER/PELVIC ORGANS: The urinary bladder is collapsed, limiting evaluation. The uterus has an unremarkable unenhanced appearance. BONES / SOFT TISSUES: There is an open wound of the anterior pelvic wall in the midline. There is diffuse infiltration of the subcutaneous fat and multiple bubbles of gas. No loculated fluid is seen. Hyperdense packing material is noted. CT/CT abdomen pelvis wo IV con IMPRESSION: 1. Open wound of the anterior pelvic wall containing packing material, with numerous bubbles of gas in the subcutaneous fat. No loculated fluid collection is identified. 2. Bilateral nephrolithiasis as described. Electronically signed by: Donavon Raymundo MD 08/22/2024 12:10 PM EDT Dictated By: Donavon Raymundo MD Signed By: <Electronically signed by Donavon Raymundo MD in OV> 08/22/24 1210 DD/ 1127 TD/TT: 08/22/24 1150 Computer Graphics Illustrator: Procedure Note Donotuseinterpreter, Image - 08/22/[address] [address] [address] Scan Report Signed Patient: Serenity Gómez [facility]#: [id number] : 1975Acct:[id number] Age/Sex: 49 / FADM Date: 08/22/24 Loc: HO.CT Attending Dr: Ted ALLEN Ordering Physician: Ted Beauchamp Date of Service: 08/22/24 Procedure(s): CT abdomen pelvis wo IV con Accession Number(s): [id number] cc: Ted Beauchamp; Basilia Colon MD Report Number: [id number]: Total DLP = 392.00 mGy-cm EXAMINATION: CT ABDOMEN PELVIS WITHOUT IV CONTRAST HISTORY: Z98.890 - Other specified postprocedural states COMPARISON: There are no prior studies available for comparison. TECHNIQUE: CT scan of the abdomen and pelvis was performed without contrast using standard departmental protocol. Coronal and sagittal reformatted images were generated and reviewed. Oral contrast material was not administered at the request of the referring physician. This CT exam was performed with one or more of the following dose reduction techniques: automated exposure control, adjustment of the mA and/or kV according to patient size, use of iterative reconstruction technique. DLP: 392 mGy-cm FINDINGS: LOWER CHEST: The visualized lung bases are clear. There is no pleural effusion. CARDIOVASCULATURE: The heart is normal in size. There is no pericardial effusion. LIVER: The liver is normal in size and contour. The liver has an unremarkable unenhanced appearance. GALLBLADDER / BILE DUCTS: The gallbladder is unremarkable. There is no intra or extrahepatic biliary ductal dilatation. SPLEEN: The spleen is normal in size and has an unremarkable unenhanced appearance. PANCREAS: The pancreas has an unremarkable unenhanced appearance. ADRENAL GLANDS: Unremarkable. KIDNEYS/RETROPERITONEUM: Innumerable punctate bilateral renal calculi are identified. There is no hydronephrosis. LYMPH NODES: No retroperitoneal lymphadenopathy is identified in the abdomen or pelvis. VASCULATURE: The abdominal aorta is normal in caliber. MESENTERY/PERITONEUM: No free fluid. No masses. There is no free intraperitoneal gas. STOMACH: There are postsurgical changes involving the stomach, which contains a large amount of debris. SMALL BOWEL: The small bowel is normal in caliber. COLON: The colon is unremarkable. APPENDIX: The appendix is not seen, however no inflammatory changes are seen adjacent to the cecum. URINARY BLADDER/PELVIC ORGANS: The urinary bladder is collapsed, limiting evaluation. The uterus has an unremarkable unenhanced appearance. BONES / SOFT TISSUES: There is an open wound of the anterior pelvic wall in the midline. There is diffuse infiltration of the subcutaneous fat and multiple bubbles of gas. No loculated fluid is seen. Hyperdense packing material is noted. CT/CT abdomen pelvis wo IV con IMPRESSION: 1. Open wound of the anterior pelvic wall containing packing material, with numerous bubbles of gas in the subcutaneous fat. No loculated fluid collection is identified. 2. Bilateral nephrolithiasis as described. Electronically signed by: Donavon Raymundo MD 08/22/2024 12:10 PM EDT RP Dictated By: Donavon Raymundo MD Signed By: <Electronically signed by Donavon Raymundo MD in OV> 08/22/24 1210 DD/ 1127 TD/TT: 08/22/24 1150 Computer Graphics Illustrator: [facility] External Provider IMG CT PROCEDURES Final Result * (ABNORMAL) CBC auto differential (08/21/2024 9:32 AM EDT) Only the most recent of2 resultswithin the time period is included. White Blood Count 12.7(H) 4.8 - 10.8 X10*3/uL [facility] Red Blood Count 3.95(L) 4.20 - 5.50 X10*6/uL [facility] Hemoglobin 11.6(L) 12.0 - 16.0 g/dl [facility] Hematocrit 34.8(L) 37.0 - 47.0 % [facility] Mean Corpuscular Volume 88.1 80.0 - 98.0 fL [facility] Mean Corpuscular Hemoglobin 29.4 27.0 - 33.0 pg [facility] Mean Corpuscular HGB Conc 33.3 31.0 - 35.0 g/dl [facility] Red Cell Distribution Width 11.8 11.0 - 16.0 % [facility] Platelet Count 311 160 - 400 X10*3/uL [facility] Mean Platelet Volume 9.4 9.4 - 12.3 fL [facility] Neutrophils Percent Auto 73.1(H) 45 - 73 % [facility] Imm Gran Pct Auto 0.4 0.0 - 0.4 % [facility] Lymphocytes Percent Auto 16.8(L) 20 - 40 % [facility] Monocytes Percent Auto 9.1 2 - 11 % [facility] Eosinophils Percent Auto 0.4 0 - 4 % [facility] Basophils Percent Auto 0.2 0 - 2 % [facility] NRBC Pct Auto 0.0 0.0 - 0.2 /100WBC [facility] Neutrophils Absolute Auto 9.3(H) 2.0 - 8.3 x10*3/uL [facility] Imm Gran Abs Auto 0.05(H) 0.00 - 0.03 X10*3/uL [facility] Lymphocytes Absolute Auto 2.1 1.2 - 4.9 X10*3/uL [facility] Monocytes Absolute Auto 1.2 0.1 - 1.2 X10*3/uL [facility] Eosinophils Absolute Auto 0.1 0.0 - 0.4 X10*3/uL [facility] Basophils Absolute Auto 0.0 0.0 - 0.2 X10*3/uL [facility] NRBC Abs Auto 0.000 0.0 - 0.012 X10*3/uL [facility] 08/21/2024 9:32 AM EDT 08/21/2024 9:32 AM EDT us Generic External Data Provider LAB BLOOD ORDERAB LES Final Result [facility] [address] [place] [phone] * Gram Stain Result (08/13/2024 2:00 PM EDT) 08/13/2024 2:00 PM EDT 08/13/2024 2:20 PM EDT Comment:Abdomen Narrative [facility] - 08/16/2024 8:01 AM EDT [...] Provider HISTORICAL/NON OR DERABLE LABS Final Result [facility] [address] [place] [phone] * BI Mammogram Screening Tomosynthesis Bilateral (07/18/2024 12:10 PM EDT) Anatomical Region Laterality Modality Breast Bilateral Mammography 07/18/2024 12:1 0 PM EDT Narrative 07/27/2024 1:14 PM EDT [address] [place] [id number] Mammography Report Signed Patient: Serenity Gómez MR#: [id number] : 1975 Acct:[id number] Age/Sex: 48 / F ADM Date: 07/18/24 Loc: HO.MAMMO Attending Dr: Basilia Colon MD Ordering Physician: Basilia Colon MD Results: 1Ne gative Date of Service: 07/18/24 Follow Up: 1 Year From Orig ina Mammogram Procedure(s): MM tomosynthesis screening BI Accession Number(s): [id number] cc: Basilia Colon MD EXAMINATION: MM SCREENING [...] 01:11 PM EDT RP Dictated By: Edith Graysno DO Signed By: <Electronically signed by Edith Grayson DO in OV> 07/27/24 1311 DD/ 1210 TD/TT: 07/18/24 1230 Computer Graphics Illustrator: Procedure Note Donotuseinterpreter, Image - 07/27/20[facility] [address] [place] [address] Mammography Report Signed Patient: Serenity Gómez [facility]#: [id number] : 1975Acct:[id number] Age/Sex: 48 / FADM Date: 07/18/24 Loc: HO.MAMMO Attending Dr: Basilia Colon MD Ordering Physician: Basilia Colon MDResults: 1Ne gative Date of Service: 07/18/24Follow Up: 1 Year From Orig inal Mammogram Procedure(s): MM tomosynthesis screening BI Accession Number(s): [id number] cc: Basilia Colon MD EXAMINATION: MM SCREENING [...] 07/27/24 1311 DD/ 1210 TD/TT: 07/18/24 1230 Computer Graphics Illustrator: us Basilia Colon MD IMG BI PROCEDURES Final Result * Gross and Microscopic Level 3 (06/28/2024 12:08 PM EDT) 06/28/2024 12:0 8 PM EDT 06/28/2024 2:20 PM EDT [facility] - 06/29/2024 4:30 PM EDT ----- ------- Name: Serenity Gómez Age/Sex: 48/F : 1975 Unit#: [id number] Attend Dr: Roel Monzon MD Re06/28/24 Status: [facility] Location: [facility] Disch: ----- ------- SPEC : [id number] RECD: 06/28/24-1420 STATUS: ANA MARÍA FERRERA NUM: [id number] AN: 06/28/24-[address]: Roel Monzon MD ENTERED: 06/28/24143 SP TYPE: Surgical OTHR DR: Bsailia Colon MD ORDERED: Gross Micro L3 Diagnosis [...] distinct cysts, lesions or nodules are identified. Tempering Machine Operator sections are submitted in cassettes A1-A3. CEDS IHC S/NG Disclaimer NOTE: Unless otherwise stated, all tissue is formalin-fixed and paraffin-embedded. Some or all of the immunohistochemical tests reported herein may have been developed and their performance characteristics determined by [facility]. They have not been cleared or approved by the U.S. Food and Drug Administration (FDA). However, the FDA has determined that such clearance or approval is not necessary. This laboratory is certified under the Clinical Laboratory Improvement Amendments of 1988 (CLIA) as qualified to perform high complexity clinical laboratory testing. Copies To: Basilia Colon MD [facility] [id number] CONTINUED ON NEXT PAGE ----- ------- Name: Serenity Gómez Age/Sex: 48/F : 1975 Unit#: [id number] Attend Dr: Roel Monzon MD Re06/28/24 [place] [facility] [place] [facility] Disch: ----- ------- SPEC : [id number] RECD: 06/28/[address] STATUS: ANA MARÍA HIGHTOWERChristophe NUM: [id number] AN: 06/28/24-[address]: Roel Monzon MD ENTERED: 06/28/24-9521 SP TYPE: Surgical OTHR DR: Basilia Colon MD ORDERED: Gross Micro L3 Copies To: (Continued) Roel Monzon MD [facility] Weight Management Program [address] [place] [phone] ----- ------- Signed (signature on file) Guillermina Wakefield MD 06/29/24 1630 ----- ------- END OF REPORT Generic External Data Provider LAB CYTOLOGY NATHALIA GIBBONS Final Result Performing Organization Address [facility] Co de Phone Number [facility] [address] [place] [phone] * Type and screen (06/26/2024 10:45 AM EDT) Pathologist [facility] Blood Type AP [facility] Antibody Screen NEGATIVE [facility] 06/26/2024 10:4 5 AM EDT 06/26/2024 11:00 AM EDT Narrative [facility] - 06/26/2024 11:37 AM EDT witnessed by SmithING:Call Blood Bank (ext. [phone]) to band patient on admission.Type and Screen in effect until 2300 on 06-28-2024 Generic External Data Provider LAB BLOOD BANK TE ST ORDERABLES Final Result Performing Organization Address [facility] Co de Phone Number [facility] [address] [place] [address] [phone] * Partial Thromboplastin Time, Activated (APTT) (06/05/2024 11:20 AM EDT) Partial Thromboplastin Time 29.3 26.0 - 36.8 SEC [facility] Comment:For information rega rding the monitoring of direct thrombininhibitors, please refer to Pharmacy. 06/05/2024 11:2 0 AM EDT 06/05/2024 11:20 AM EDT Generic External Data Provider LAB BLOOD ORDERAB LES Final Result Performing Organization Address [facility]/ZIP Co de Phone Number [facility] [address] [place] [phone] * Prothrombin Time-INR (06/05/2024 11:20 AM EDT) Prothrombin Time 11.3 10.9 - 12.4 SEC [facility] INTERNATIONAL NORM RATIO 1.0 0.9 - 1.1 [facility] Comment:INTERNATIONAL NORMAL IZED RATIO (INR) [...] ORDERAB LES Final Result Performing Organization Address [facility] Co de Phone Number [facility] [address] [place] [phone] * (ABNORMAL) Comprehensive Metabolic Panel (06/05/2024 11:20 AM EDT) Pathologist [facility] Sodium 140 135 - 145 mmol/L [facility] Potassium 4.5 3.3 - 5.1 mmol/L [facility] Chloride 106 96 - 108 mmol/L [facility] Carbon Dioxide 30(H) 22 - 29 mmol/L [facility] Anion Gap 9(L) 12 - 20 [facility] Urea Nitrogen (BUN) 19(H) 9 - 16 mg/dL [facility] Creatinine, Serum 0.67 0.5 - 1.4 mg/dL [facility] Creatinine Clr Calc Pharmacy TNP [facility] Comment:Unable to calculate eCrCL; all parameters not provided. Estimated Glomerular Filt Rate >60 [facility] Comment:Chronic Kidney Disea se: Estimated GFR < 60 mL/min/1.92v9Estdmu Kidney Disease: Estimated GFR < 15 mL/min/1.73m2 Glucose 89 60 - 115 mg/dL [facility] Calcium 9.1 8.4 - 10.2 mg/dL [facility] Bilirubin, Total 0.9 0.0 - 1.0 mg/dL [facility] Aspartate Amino Transferase 21 5 - 31 U/L [facility] Alanine Aminotransferase 11 0 - 31 U/L [facility] Total Protein 7.8 6.5 - 8.0 g/dL [facility] Albumin Level 4.2 3.5 - 5.0 g/dL [facility] Alkaline Phosphatase 71 39 - 117 U/L [facility] 06/05/2024 11:2 0 AM EDT 06/05/2024 11:20 AM EDT us Generic External Data Provider LAB BLOOD ORDERAB LES Final Result Performing Organization Address City/State/[facility] Co de Phone Number [facility] [address] [place] [phone] * (ABNORMAL) Lipid Panel, Standard (02/24/2024 8:29 AM EST) Triglycerides 61 <150 mg/dL [facility] Comment:Desirable Triglyceri de: less than 150 mg/dLBorderline High Triglyceride 150-199 mg/dLHigh Triglyceride: 200-499 mg/dLVery High Triglyceride: greater than or equal to 5OO mg/dL Cholesterol 187 <200 mg/dL [facility] Comment:Desirable Cholestero l: less than 200 mg/dLBorderline High Cholesterol: 200-239 mg/dLHigh Cholesterol: greater than 239 mg/dL LDL Cholesterol Calculated 110(H) <100 mg/dL [facility] Comment:Desirable LDL: less than 100 mg/dLNear Optimal/Above Optimal LDL: 110- 129 mg/dLBorderline High LDL: 130-159 mg/dLHigh LDL: 160-189 mg/dLVery High LDL: greater than or equal to 190 mg/dL HDL Cholesterol 65 >40 mg/dL [facility] Comment:Desirable HDL: great er than 40 mg/dL Note: This HDL assay may give artificially low results in patients with liver disease. 02/24/2024 8:29 AM EST 02/24/2024 8:29 AM EST us Generic External Data Provider LAB BLOOD ORDERAB LES Final Result Performing Organization Address City/State/[facility] Co de Phone Number [facility] [address] [place] [phone] * Pap Smear (12/29/2022 2:49 PM EST) 12/29/2022 2:49 PM EST 01/03/2023 7:00 AM EST Narrative [facility] - 01/13/2023 4:11 PM EST ----- ------- Name: Serenity Gómez Age/Sex: 47/F : 1975 Unit#: [id number] Attend Dr: Chalino Benton MD Re12/29/22 Status: DEP REF Location: HO.LNP Disch: ----- ------- SPEC : [id number] RECD: 01/03/23 STATUS: ANA MARÍA FERRERA NUM: [id number] AN: 12/29/22-[address] [facility] [address]: Chalino Benton MD ENTERED: 01/04/23 SP [...] 59, 66, 68) HPV testing performed by [facility], [place], [place]. See reference laboratory portion of the EMR for entire report. Clinical Information LMP: Postmenopausal Previous PAP test: 2021, ASCUS, HPV+ Material Received ThinPrep-Cervical Copies To: Basilia Colon MD [address] [place] [phone] Chalino Benton MD [address] [place] [address] [address] [place] [phone] ----- ------- Signed (signature on file) MANUEL Uriarte (ASCP) 01/13/23 1611 ----- ------- END OF REPORT us Generic External Data Provider LAB CYTOLOGY ORDE RABLES Final Result [facility] [address] [place] [phone] * HPV E6/E7 RFLX OLGA 16 18/45 (11/11/2021 3:37 PM EDT) HPV mRNA E6/E7 rflx Not Detected Not Detected [facility] Comment: Methodology: Vba Developer-Mediated Amplification This assay detects E6/E7 viral messenger RNA (mRNA) from 14 high-risk HPV types (16,18,31,33,35,39,45,51,52,56,58,59,66,68). Cervical sources are required for HPV testing. If a vaginal source from a patient who has had a total hysterectomy with removal of cervix was submitted, please contact the testing laboratory for alternative testing options. For additional information, please refer to http://education.RocketBux/faq/NJR262d7 (This link if provided for information/ educational purposes only.) THIS TEST WAS PERFORMED AT: [facility] [address] [place] [address] FLOOR,[place] [address] ELIZABETH ANDRES MD 11/11/2021 3:37 PM EDT Chalino Benton MD HISTORICAL/NON ORDERABLE LABS Fi nal Result Performing Organization Address City/[facility]/ZIP Co de Phone Number [facility] * Hm Colonoscopy (07/08/2021 9:47 AM EDT) Historical Provider HEALTH MAINTENANCE Final Result * HIV 1/2 ANTIGEN/ANTIBODY,FOURTH GENERATION W/RFL (10/17/2020 1:05 PM EDT) HIV-1/2 ANTIGEN AND ANTIBODIES, 4TH GENERATION W/ REFLEX NON-REACT ELENA NON-REACT ELENA [facility] Comment: HIV-1 antigen and HIV-1/HIV-2 [...] purpose. For additional information please refer to http://Mowjow.RocketBux/faq/YEB330 (This link is being provided for informational/ educational purposes only.) The performance of this assay has not been clinically validated in patients less than 2 years old. 10/17/2020 1:05 PM EDT Basilia Colon MD LAB BLOOD ORDERABLES Fin al Result [facility] Anywhere [address] from Last 3 Months or Most Recently Relevant to Health Maintenance Insurance [facility] Care Teams Management Consultant Relationship Specialty Start Date End Date Basilia Colon MD [address] [place] [id number] PCP - General Family Medicine 12/27/17 [place] [facility] 06/29/24
--- NOTE | 2024-08-24 13:51 | A.OFFVIS_ITS ---
VS Expanded 08/24/24 15:04 BP 128/72 Blood Pressure Location Rt brachial Blood Pressure Position Sitting Pulse 72 Pulse Source Pulse Oximeter Temp 97.0 F Temperature Source Temporal Artery Scan Pulse Oximetry 99 Oxygen Delivery Method Room Air Height 4 ft 11 in Weight 128 lb 12.8 oz BMI 26.0 Body Fat % 32.4 Body Fat Mass 41.6 Fat Free Mass 87.0 Visceral Fat Rating 6.0 Body Water % 48.1 Body Water Mass 62.0 Muscle Mass/Score 82.6 Intake Visit Reasons: OV Panniculectomy 06/28/24 Allergies No Known Allergies Allergy (Verified 08/23/24 10:21) HPI Comments Details: 49-year-old female returns to the office today in follow-up. She is status post panniculectomy on 06/28/2024. She developed postoperative wound abscess requiring drainage. The incision has dehisced along the right lateral transverse incision and midline transverse incision. She remains on Bactrim DS 1 tab p.o. b.i.d., today is day 8 of 24 MRSA culture positive bacteria. This has been packed with iodoform quarter-inch packing on a daily basis. She reports overall continued subjective feelings of improvement. No fevers or chills. She has improved significantly since initiating this treatment. She continues on her meal plan: Orgain 1/2 scoop at 5-7, 8-10, 2-4, 5-7 fit crunch bar at 11-1 [facility] Medical History (Updated 08/20/24 @ 13:35 by TIFFANY Fox) Excess skin History of vertigo Nephrolithiasis GERD (gastroesophageal reflux disease) Anxiety Depression BMI 39.0-39.9,adult Morbid obesity Right shoulder injury Left lateral epicondylitis Right shoulder tendonitis Carpal tunnel syndrome on both sides Normal vulvar exam Hemorrhoids Diverticulosis Tubular adenoma Encounter for screening colonoscopy Postmenopausal bleeding Well woman exam BENITO III (cervical intraepithelial neoplasia grade III) with severe dysplasia Carpal tunnel syndrome Acute arthritis Seasonal allergic rhinitis Surgical History S/P panniculectomy 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) Hx of colonoscopy (07/2021) Tubal ligation status Family History Mother HTN (hypertension) A-fib Arthritis Father Diabetes HTN (hypertension) Sister Lupus Social History Household Members: Spouse Housing: House Are you a primary nurse wound care to a significant other at home: No Do you presently have visiting nurse or other home services: No Alcohol intake: current Alcohol intake frequency: does not drink Patient Tobacco Use Status: Never used Tobacco service: No Current occupational status: employed 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 No purulence from right dehiscence. No appreciable tenderness, overlying erythema or warmth on either areas. Both were flushed with 50% hydrogen peroxide/50% normal saline. Both were packed with quarter-inch iodoform gauze. Covered with moistened 3 x 3 gauze and dry clean dressing Assessment & Plan Assessment & Plan (1) Post-operative wound abscess: Code(s): T81.49XA - Infection following a procedure, other surgical site, initial enc ounter Category: Medical Plan: Continue meal plan as directed by Dr. Monzon. Continue antibiotics, Bactrim DS 1 p.o. b.i.d., day 8 of [facility]NA is scheduled to come into the house tomorrow and Tuesday for wound care. Return to the office Tuesday
[2024-08-24 15:04] VITALS: BP 128/72; PULSE 72; TEMP 36.1; O2SAT 99; BMI 26.0
== END 2024-08-24 14:26 | disposition home or self-care (01) ==
LOC: HO.HBS 13:40
PROVIDERS: PCP Internal Medicine; Visit Provider Physician Assistant Surgical
DX: T81.49XA Infection following a procedure, other surgical site, initial encounter (principal)
CPT/HCPCS: 99213

== ENCOUNTER → 2024-08-24 13:40 | Outpatient (BNVA) | payer OTHER, SELFPAY | PROVIDERS: PCP Internal Medicine; Visit Provider Physician Assistant Surgical | DX: T81.49XA Infection following a procedure, other surgical site, initial encounter (principal); Z98.890 Other specified postprocedural states | CPT/HCPCS: 99212 ==

== ENCOUNTER 2024-08-27 13:38 | Outpatient (AMB) | payer OTHER, SELFPAY ==
[2024-08-27 14:02] VITALS: BP 141/76; PULSE 74; TEMP 36.3; O2SAT 97; BMI 26.0
--- NOTE | 2024-08-27 14:02 | MHC.OFFVISWM ---
VS Expanded 08/27/24 14:02 BP 141/76 H Blood Pressure Location Rt brachial Blood Pressure Position Sitting Pulse 74 Pulse Source Pulse Oximeter Temp 97.4 F Temperature Source Temporal Artery Scan Pulse Oximetry 97 Oxygen Delivery Method Room Air Height 4 ft 11 in Weight 128 lb 9.6 oz BMI 26.0 Body Fat % 31.6 Body Fat Mass 40.6 Fat Free Mass 88.0 Visceral Fat Rating 6.0 Body Water % 48.7 Body Water Mass 62.6 Muscle Mass/Score 83.6 Basal Metabolic Rate/Score Intake Visit Reasons: OV Panniculectomy 06/28/24 Allergies No Known Allergies Allergy (Verified 08/23/24 10:21) HPI Comments Details: 49-year-old female returns to the office today in follow-up. She is status post panniculectomy on 06/28/2024. She developed postoperative wound abscess requiring drainage. The incision has dehisced along the right lateral transverse incision and midline transverse incision. She remains on Bactrim DS 1 tab p.o. b.i.d., today is day 11 20 for MRSA culture positive bacteria. This has been packed with iodoform quarter-inch packing on a daily basis. She reports overall continued subjective feelings of improvement. No fevers or chills. She has improved significantly since initiating this treatment. She continues on her meal plan: Orgain 1/2 scoop at 5-7, 8-10, 2-4, 5-7 fit crunch bar at 11-1 PFSH Medical History (Updated 08/20/24 @ 13:35 by TIFFANY Fox) Excess skin History of vertigo Nephrolithiasis GERD (gastroesophageal reflux disease) Anxiety Depression BMI 39.0-39.9,adult Morbid obesity Right shoulder injury Left lateral epicondylitis Right shoulder tendonitis Carpal tunnel syndrome on both sides Normal vulvar exam Hemorrhoids Diverticulosis Tubular adenoma Encounter for screening colonoscopy Postmenopausal bleeding Well woman exam BENITO III (cervical intraepithelial neoplasia grade III) with severe dysplasia Carpal tunnel syndrome Acute arthritis Seasonal allergic rhinitis Surgical History S/P panniculectomy 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) Hx of colonoscopy (07/2021) Tubal ligation status Family History Mother HTN (hypertension) A-fib Arthritis Father Diabetes HTN (hypertension) Sister Lupus Social History Household Members: Spouse Housing: House Are you a primary home health aide caregiver to a significant other at home: No Do you presently have visiting nurse or other home services: No Alcohol intake: current Alcohol intake frequency: does not drink Patient Tobacco Use Status: Never used Tobacco service: No Current occupational status: employed 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 Both the midline and right lateral opening were flushed with 50% hydrogen peroxide 50% normal saline solution. The flush exited right lateral from midline. Both were packed with quarter-inch iodoform packing Assessment & Plan Assessment & Plan (1) Post-operative wound abscess: Code(s): T81.49XA - Infection following a procedure, other surgical site, initial encounter Category: Medical Plan: Day of 20 of Bactrim DS 1 p.o. b.i.d.. By all measures, patient continues to improve. We will continue to do daily wound care. Return to clinic tomorrow
--- OUTSIDE RECORDS SUMMARY | 2024-08-27 14:23 | XMS_ITS | Clinical Summary ---
Author Organization [employer] [facility] ity Address [address] [place] [id number] Care Team Providers Care Automotive [employer] Advisor Name Role Phone Unavailable Primary Care Provider [...] Smear 1994 Colorectal Cancer Screening: Colonoscopy 03/04/2023 HIV Screening 03/04/2023 Hepatitis C Screening 03/04/2023 Social Influencers of Health Screening 03/04/2023 Pneumococcal Vaccine: 50+ Ye ars (1 of 1 - PCV) 08/01/2023 Zoster Vaccines (1 of 2) 08/01/2023 COVID-19 Vaccine (1 - 2023-2 5 season) 2023 Depression Screening 02/08/2024 Influenza Vaccine (#1) 2024 HIB Vaccines Aged [...]
--- OUTSIDE RECORDS SUMMARY | 2024-08-27 14:23 | XMS_ITS | Clinical Summary ---
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 [address] [place] [id number] Thaddeus Wright, [facility] [address] [place] [address] Health Maintenance Due Date Last Done Comments Anxiety Screening 1973 Dental FMX/Pano 1973 HPV Screening 1973 Hepatitis C Screening 1973 Pap + HPV 1973 Tobacco Screening 1973 Cervical Cancer Screening [address] Colonography 2018 Colonoscopy 2018 Colorectal Cancer Screening 2018 FIT/gFOBT 2018 Fecal DNA 2018 Flexible Sigmoidoscopy 2018 Breast Cancer Screening (Mammogram) 11/17/2020 11/17/2018 Imm-DTaP/Tdap/Td (2 - Td or Tdap) 01/05/2021 011 Imm-Pneumococcal 50+ (1 of 1 - PCV) 08/01/2023 Imm-Zoster, Recombinant (1 of 2) 08/01/2023 [id number] (1 - 2023- season) 2023 Alcohol and Drug Screen 02/08/2024 Depression Annual Screen 02/08/2024 Hypertension Screening (#1) 02/28/2024 Imm-Influenza (#1) 2024 11/28/2020, 1 , 11/03/2010 [...] Recently Relevant to Health Maintenance Insurance [employer] [facility]
--- OUTSIDE RECORDS SUMMARY | 2024-08-27 14:23 | XMS_ITS | Clinical Summary ---
Author Organization [employer] Address [address] [facility] [address] [place] [address] Care Team Providers Care Bench Hand Name Role Phone Basilia Colon MD Primary Care Provider + Allergies No known active allergies Medications tiZANidine (Zanaflex) 4 MG capsuleIndicati ons:Acute pain of right shoulder Take 1 capsule (4 mg) by mouth 3 times daily. 90 capsule 1 03/09/2022 Active ergocalciferol (Vitamin D2) 1.25 MG (87924 UT) capsule TAKE 1 CAPSULE BY MOUTH [...] (12/12/2023 1:26 PM EST): On 10/2022 at [facility] [place] for breast cancer 07/01/2023 Assessment [...] Resolved, last PAP was wnl Fu w/ LINUX SUPPORT ENGINEER for PAP smear 12/2023 Assessment & Plan (06/16/2022 11:21 AM EDT): PAP smear on 12/03/21 showed NIL/+HPV FU with LINUX SUPPORT ENGINEER on 11/2022 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 Resolved Problems Problem Noted Date Diagnosed Date Resolved Date Obesity (BMI 30.0-34.9) 12/27/2022 11/0 05/2023 Assessment & Plan (12/27/2022 3:25 PM EST): Status Post bariatric surgery Significant decrease in BMI Continue Multivitamins Iron + zinc supplementation F/u [facility] obesity clinic F/u in 6 mos Morbid obesity 09/03/2011 12/12/2023 Overview (12/12/2023): Sp Laparoscopic sleeve gastrectomy on 11/04/22 at [facility] Assessment & Plan (06/16/2022 11:20 AM EDT): Discussed re weight reduction options including exercise, life style modifications, diet, referral to drilling fluids specialist. Discussed re lower calorie intake, increase dietary fiber I gave her information about weight management program for baritric surgery Encounters Date Type Department Care Team Description 08/22/2024 Orders Only [facility] External Provider, [facility] 08/21/2024 Orders Only GENERIC EXTERNAL DATA DEPARTMENT Provider, Generic External Data 08/13/2024 Orders Only GENERIC EXTERNAL DATA DEPARTMENT Provider, Generic External Data 07/18/2024 Orders Only [address] [address] Basilia Colon MD 06/28/2024 Orders Only GENERIC EXTERNAL DATA DEPARTMENT Provider, Generic External Data 06/26/2024 Orders Only GENERIC EXTERNAL DATA DEPARTMENT Provider, Generic External Data 06/22/2024 11:45 AM EDT Office Visit [address] [address] Basilia Colon MD Rheumatoid arthritis involving multiple sites with positive rheumatoid factor ([facility]) (Primary Dx); Benign essential HTN; Dietary counseling; Exercise counseling; Overweight 06/22/2024 Travel 06/21/[address] [address] Basilia Colon MD chart prep 06/15/2024 Patient Outreach [address] [address] Basilia Colon MD Pre-visit Planning (SDOH screening [...] AM EDT Narrative 08/22/2024 12:13 PM EDT [place] [address] [address] Scan Report Signed Patient: Serenity Gómez MR#: [id number] : 1975 Acct:[id number] Age/Sex: 49 / F ADM Date: 08/22/24 Loc: HO.CT Attending Dr: Ted ALLEN Ordering Physician: Ted Beauchamp Date of Service: 08/22/24 Procedure(s): CT abdomen pelvis wo IV con Accession Number(s): [id number] cc: Ted Beauchamp; Basilia Colon MD Report Number: [id number]: Total DLP = 392.00 mGy-cm EXAMINATION: CT [...] 08/22/24 1210 DD/ 1127 TD/TT: 08/22/24 1150 Picker Box Operator: Procedure Note Donotuseinterpreter, Image - 08/22/[address] [address] [address] Scan Report Signed Patient: Serenity Gómez [facility]#: [id number] : 1975Acct:[id number] Age/Sex: 49 / FADM Date: 08/22/24 Loc: HO.CT Attending Dr: Ted ALLEN Ordering Physician: Ted Beauchamp Date of Service: 08/22/24 Procedure(s): CT abdomen pelvis wo IV con Accession Number(s): [id number] cc: Ted Beauchamp; Basilia Colon MD Report Number: [id number]: Total DLP = 392.00 mGy-cm EXAMINATION: CT [...] 08/22/24 1210 DD/ 1127 TD/TT: 08/22/24 1150 Picker Box Operator: [facility] External Provider IMG CT PROCEDURES Final Result * (ABNORMAL) CBC auto differential (08/21/2024 9:32 AM EDT) Only the most recent of2 resultswithin the time period is included. White Blood Count 12.7(H) 4.8 - 10.8 X10*3/uL [facility] Red Blood Count 3.95(L) 4.20 - 5.50 X10*6/uL [facility] Hemoglobin 11.6(L) 12.0 - 16.0 g/dl [facility] Hematocrit 34.8(L) 37.0 - 47.0 % [facility] Mean Corpuscular Volume 88.1 80.0 - 98.0 fL [facility] Mean Corpuscular Hemoglobin 29.4 27.0 - 33.0 pg [facility] Mean Corpuscular HGB Conc 33.3 31.0 - 35.0 g/dl [facility] Red Cell Distribution Width 11.8 11.0 - 16.0 % [facility] Platelet Count 311 160 - 400 X10*3/uL [facility] Mean Platelet Volume 9.4 9.4 - 12.3 fL [facility] Neutrophils Percent Auto 73.1(H) 45 - 73 % [facility] Imm Gran Pct Auto 0.4 0.0 - 0.4 % [facility] Lymphocytes Percent Auto 16.8(L) 20 - 40 % [facility] Monocytes Percent Auto 9.1 2 - 11 % [facility] Eosinophils Percent Auto 0.4 0 - 4 % [facility] Basophils Percent Auto 0.2 0 - 2 % [facility] NRBC Pct Auto 0.0 0.0 - 0.2 /100WBC [facility] Neutrophils Absolute Auto 9.3(H) 2.0 - 8.3 x10*3/uL [facility] Imm Gran Abs Auto 0.05(H) 0.00 - 0.03 X10*3/uL [facility] Lymphocytes Absolute Auto 2.1 1.2 - 4.9 X10*3/uL [facility] Monocytes Absolute Auto 1.2 0.1 - 1.2 X10*3/uL [facility] Eosinophils Absolute Auto 0.1 0.0 - 0.4 X10*3/uL [facility] Basophils Absolute Auto 0.0 0.0 - 0.2 X10*3/uL [facility] NRBC Abs Auto 0.000 0.0 - 0.012 X10*3/uL [facility] 08/21/2024 9:32 AM EDT 08/21/2024 9:32 AM EDT us Generic External Data Provider LAB BLOOD ORDERAB LES Final Result [facility] [address] [place] [phone] * Gram Stain Result (08/13/2024 2:00 PM EDT) 08/13/2024 2:00 PM EDT 08/13/2024 2:20 PM EDT Comment:Abdomen Narrative [facility] - 08/16/2024 8:01 AM EDT [...] Provider HISTORICAL/NON OR DERABLE LABS Final Result [facility] [address] [place] [phone] * BI Mammogram Screening Tomosynthesis Bilateral (07/18/2024 12:10 PM EDT) Anatomical Region Laterality Modality Breast Bilateral Mammography 07/18/2024 12:1 0 PM EDT Narrative 07/27/2024 1:14 PM EDT [address] [place] [address] Mammography Report Signed Patient: Serenity Gómez MR#: [id number] : 1975 Acct:[id number] Age/Sex: 48 / F ADM Date: 07/18/24 Loc: HO.MAMMO Attending Dr: Basilia Colon MD Ordering Physician: Basilia Colon MD Results: 1Ne gative Date of Service: 07/18/24 Follow Up: 1 Year From Orig ina Mammogram Procedure(s): MM tomosynthesis screening BI Accession Number(s): [id number] cc: Basilia Colon MD EXAMINATION: MM SCREENING [...] 07/27/24 1311 DD/ 1210 TD/TT: 07/18/24 1230 Picker Box Operator: Procedure Note Donotuseinterpreter, Image - 07/27/2024 [facility] [address] [place] [address] Mammography Report Signed Patient: Serenity Gómez [facility]#: [id number] : 1975Acct:[id number] Age/Sex: 48 / FADM Date: 07/18/24 Loc: HO.MAMMO Attending Dr: Basilia Colon MD Ordering Physician: Basilia Colon MDResults: 1Ne gative Date of Service: 07/18/24Follow Up: 1 Year From Orig inal Mammogram Procedure(s): MM tomosynthesis screening BI Accession Number(s): [id number] cc: Basilia Colon MD EXAMINATION: MM SCREENING [...] 07/27/24 1311 DD/ 1210 TD/TT: 07/18/24 1230 Picker Box Operator: us Basilia Colon MD IMG BI PROCEDURES Final Result * Gross and Microscopic Level 3 (06/28/2024 12:08 PM EDT) 06/28/2024 12:0 8 PM EDT 06/28/2024 2:20 PM EDT [facility] - 06/29/2024 4:30 PM EDT ----- ------- Name: Serenity Gómez Age/Sex: 48/F : 1975 Unit#: [id number] Attend Dr: Roel Monzon MD Re06/28/24 Status: [facility] Location: [facility] Disch: ----- ------- SPEC : [id number] RECD: 06/28/24-1420 STATUS: ANA MARÍA FERRERA NUM: [id number] AN: 06/28/24-[address]: Roel Monzon MD ENTERED: 06/28/24143 SP TYPE: Surgical OTHR DR: Basilia Colon [...] distinct cysts, lesions or nodules are identified. Home Theater Experience Expert sections are submitted in cassettes A1-A3. CEDS IHC S/NG Disclaimer NOTE: Unless otherwise stated, all tissue is formalin-fixed and paraffin-embedded. Some or all of the immunohistochemical tests reported herein may have been developed and their performance characteristics determined by [facility]. They have not been cleared or approved by the U.S. Food and Drug Administration (FDA). However, the FDA has determined that such clearance or approval is not necessary. This laboratory is certified under the Clinical Laboratory Improvement Amendments of 1988 (CLIA) as qualified to perform high complexity clinical laboratory testing. Copies To: Basilia Colon MD [place] [id number] CONTINUED ON NEXT PAGE ----- ------- Name: Serenity Gómez Age/Sex: 48/F : 1975 Unit#: [id number] Attend Dr: Roel Monzon MD Re06/28/24 Status: [facility] Location: [facility] Disch: ----- ------- SPEC : [id number] RECD: 06/28/[address]142 STATUS: ANA MARÍA HIGHTOWERChristophe NUM: [id number] AN: 06/28/24-[address]: Roel Monzon MD ENTERED: 06/28/24-9006 SP TYPE: Surgical OTHR DR: Basilia Colon MD ORDERED: Gross Micro L3 Copies To: (Continued) Roel Monzon MD [facility] Weight Management Program [address] [place] [phone] ----- ------- Signed (signature on file) Guillermina Wakefield MD 06/29/24 1630 ----- ------- END OF REPORT Generic External Data Provider LAB CYTOLOGY NATHALIA GIBBONS Final Result Performing Organization Address [facility] Co de Phone Number [facility] [address] [place] [phone] * Type and screen (06/26/2024 10:45 AM EDT) Pathologist [facility] Blood Type AP [facility] Antibody Screen NEGATIVE [facility] 06/26/2024 10:4 5 AM EDT 06/26/2024 11:00 AM EDT Narrative [facility] - 06/26/2024 11:37 AM EDT witnessed by SmithING:Call Blood Bank (ext. [phone]) to band patient on admission.Type and Screen in effect until 2300 on 06-28-2024 Generic External Data Provider LAB BLOOD BANK TE ST ORDERABLES Final Result Performing Organization Address [facility] Co de Phone Number [facility] [address] [place] [phone] * Partial Thromboplastin Time, Activated (APTT) (06/05/2024 11:20 AM EDT) Partial Thromboplastin Time 29.3 26.0 - 36.8 SEC [facility] Comment:For information rega rding the monitoring of direct thrombininhibitors, please refer to Pharmacy. 06/05/2024 11:2 0 AM EDT 06/05/2024 11:20 AM EDT Generic External Data Provider LAB BLOOD ORDERAB LES Final Result Performing Organization Address [facility]/ZIP Co de Phone Number [facility] [address] [place] [phone] * Prothrombin Time-INR (06/05/2024 11:20 AM EDT) Prothrombin Time 11.3 10.9 - 12.4 SEC [facility] INTERNATIONAL NORM RATIO 1.0 0.9 - 1.1 [facility] Comment:INTERNATIONAL NORMAL IZED RATIO (INR) [...] ORDERAB LES Final Result Performing Organization Address [facility] Co de Phone Number [facility] [address] [place] [phone] * (ABNORMAL) Comprehensive Metabolic Panel (06/05/2024 11:20 AM EDT) Pathologist [facility] Sodium 140 135 - 145 mmol/L [facility] Potassium 4.5 3.3 - 5.1 mmol/L [facility] Chloride 106 96 - 108 mmol/L [facility] Carbon Dioxide 30(H) 22 - 29 mmol/L [facility] Anion Gap 9(L) 12 - 20 [facility] Urea Nitrogen (BUN) 19(H) 9 - 16 mg/dL [facility] Creatinine, Serum 0.67 0.5 - 1.4 mg/dL [facility] Creatinine Clr Calc Pharmacy TNP [facility] Comment:Unable to calculate eCrCL; all parameters not provided. Estimated Glomerular Filt Rate >60 [facility] Comment:Chronic Kidney Disea se: Estimated GFR < 60 mL/min/1.31v0Wmthqt Kidney Disease: Estimated GFR < 15 mL/min/1.73m2 Glucose 89 60 - 115 mg/dL [facility] Calcium 9.1 8.4 - 10.2 mg/dL [facility] Bilirubin, Total 0.9 0.0 - 1.0 mg/dL [facility] Aspartate Amino Transferase 21 5 - 31 U/L [facility] Alanine Aminotransferase 11 0 - 31 U/L [facility] Total Protein 7.8 6.5 - 8.0 g/dL [facility] Albumin Level 4.2 3.5 - 5.0 g/dL [facility] Alkaline Phosphatase 71 39 - 117 U/L [facility] 06/05/2024 11:2 0 AM EDT 06/05/2024 11:20 AM EDT us Generic External Data Provider LAB BLOOD ORDERAB LES Final Result Performing Organization Address City/State/[facility] Co de Phone Number [facility] [address] [place] [phone] * (ABNORMAL) Lipid Panel, Standard (02/24/2024 8:29 AM EST) Triglycerides 61 <150 mg/dL [facility] Comment:Desirable Triglyceri de: less than 150 mg/dLBorderline High Triglyceride 150-199 mg/dLHigh Triglyceride: 200-499 mg/dLVery High Triglyceride: greater than or equal to 5OO mg/dL Cholesterol 187 <200 mg/dL [facility] Comment:Desirable Cholestero l: less than 200 mg/dLBorderline High Cholesterol: 200-239 mg/dLHigh Cholesterol: greater than 239 mg/dL LDL Cholesterol Calculated 110(H) <100 mg/dL [facility] Comment:Desirable LDL: less than 100 mg/dLNear Optimal/Above Optimal LDL: 110- 129 mg/dLBorderline High LDL: 130-159 mg/dLHigh LDL: 160-189 mg/dLVery High LDL: greater than or equal to 190 mg/dL HDL Cholesterol 65 >40 mg/dL [facility] Comment:Desirable HDL: great er than 40 mg/dL Note: This HDL assay may give artificially low results in patients with liver disease. 02/24/2024 8:29 AM EST 02/24/2024 8:29 AM EST us Generic External Data Provider LAB BLOOD ORDERAB LES Final Result Performing Organization Address City/State/[facility] Co de Phone Number [facility] [address] [place] [phone] * Pap Smear (12/29/2022 2:49 PM EST) 12/29/2022 2:49 PM EST 01/03/2023 7:00 AM EST Narrative [facility] - 01/13/2023 4:11 PM EST ----- ------- Name: Serenity Gómez Age/Sex: 47/F : 1975 Unit#: [id number] Attend Dr: Chalino Benton MD Re12/29/22 Status: DEP REF Location: HO.LNP Disch: ----- ------- SPEC : [id number] RECD: 01/03/23 STATUS: ANA MARÍA FERRERA NUM: [id number] AN: 12/29/22-1448 [facility] DR: Chalino Benton MD ENTERED: [...] 59, 66, 68) HPV testing performed by [facility], [place], [place]. See reference laboratory portion of the EMR for entire report. Clinical Information LMP: Postmenopausal Previous PAP test: 2021, ASCUS, HPV+ Material Received ThinPrep-Cervical Copies To: Basilia Colon MD [address] [place] [phone] Chalino Benton MD [address] [place] [address] [address] [place] [phone] ----- ------- Signed (signature on file) MANUEL Uriarte (ASCP) 01/13/23 1611 ----- ------- END OF REPORT us Generic External Data Provider LAB CYTOLOGY ORDE RABLES Final Result [facility] [address] [place] [phone] * HPV E6/E7 RFLX OLGA 16 18/45 (11/11/2021 3:37 PM EDT) HPV mRNA E6/E7 rflx Not Detected Not Detected [facility] Comment: Methodology: Group Home Supervisor-Mediated Amplification This assay detects E6/E7 viral messenger RNA (mRNA) from 14 high-risk HPV types (16,18,31,33,35,39,45,51,52,56,58,59,66,68). Cervical sources are required for HPV testing. If a vaginal source from a patient who has had a total hysterectomy with removal of cervix was submitted, please contact the testing laboratory for alternative testing options. For additional information, please refer to http://education.[employer]/faq/WGO791m0 (This link if provided for information/ educational purposes only.) THIS TEST WAS PERFORMED AT: [facility] [address] [place] [address] [address]LO[address],[place] [phone] ELIZABETH ANDRES MD 11/11/2021 3:37 PM EDT Chalino Benton MD HISTORICAL/NON ORDERABLE LABS Fi nal Result Performing Organization Address City/[facility]/ZIP Co de Phone Number [facility] * Hm Colonoscopy (07/08/2021 9:47 AM EDT) Historical Provider HEALTH MAINTENANCE Final Result * HIV 1/2 ANTIGEN/ANTIBODY,FOURTH GENERATION W/RFL (10/17/2020 1:05 PM EDT) HIV-1/2 ANTIGEN AND ANTIBODIES, 4TH GENERATION W/ REFLEX NON-REACT ELENA NON-REACT ELENA [facility] Comment: HIV-1 antigen and HIV-1/HIV-2 [...] purpose. For additional information please refer to http://SocialGO.[employer]/faq/CJS389 (This link is being provided for informational/ educational purposes only.) The performance of this assay has not been clinically validated in patients less than 2 years old. 10/17/2020 1:05 PM EDT Basilia Colon MD LAB BLOOD ORDERABLES Fin al Result [facility] [address] from Last 3 Months or Most Recently Relevant to Health Maintenance Insurance [facility] Care Teams Bench Hand Relationship Specialty Start Date End Date Basilia Colon MD [address] [place] [phone] PCP - General Family Medicine 12/27/17 [place] [facility] 06/29/24
== END 2024-08-27 14:36 | disposition home or self-care (01) ==
LOC: HO.HBS 13:38
PROVIDERS: PCP Internal Medicine; Visit Provider Physician Assistant Surgical
DX: T81.49XA Infection following a procedure, other surgical site, initial encounter (principal)
CPT/HCPCS: 99213

== ENCOUNTER → 2024-08-27 13:38 | Outpatient (BNVA) | payer OTHER, SELFPAY | PROVIDERS: PCP Internal Medicine; Visit Provider Physician Assistant Surgical | DX: T81.49XA Infection following a procedure, other surgical site, initial encounter (principal) | CPT/HCPCS: 99212 ==

== ENCOUNTER 2024-08-28 13:54 | Outpatient (AMB) | payer OTHER, SELFPAY ==
--- NOTE | 2024-08-28 14:00 | A.OFFVIS_ITS ---
VS Expanded 08/28/24 14:32 BP 110/62 Blood Pressure Location Rt brachial Blood Pressure Position Sitting Pulse 74 Pulse Source Pulse Oximeter Temp 97.6 F Temperature Source Temporal Artery Scan Pulse Oximetry 95 Oxygen Delivery Method Room Air Height 4 ft 11 in Weight 127 lb 12.8 oz BMI 25.8 Body Fat % 32.3 Body Fat Mass 41.2 Fat Free Mass 86.4 Visceral Fat Rating 6.0 Body Water % 48.0 Body Water Mass 61.2 Muscle Mass/Score 82.0 Basal Metabolic Rate/Score 1,186 Intake Visit Reasons: OV Panniculectomy 06/28/24 Allergies No Known Allergies Allergy (Verified 08/23/24 10:21) HPI Comments Details: 49-year-old female returns to the office today in follow-up. She is status post panniculectomy on 06/28/2024. She developed postoperative wound abscess requiring drainage. The incision has dehisced along the right lateral transverse incision and midline transverse incision. She remains on Bactrim DS 1 tab p.o. b.i.d., today is day 12 of 20 for MRSA culture positive bacteria. This has been packed with iodoform quarter-inch packing on a daily basis. She reports overall continued subjective feelings of improvement. No fevers or chills. She has improved significantly since initiating this treatment. She continues on her meal plan: Orgain 1/2 scoop x 2 fit crunch bar x 2 meal w 4 forks protein and 4 forks veg [facility] Medical History (Updated 08/20/24 @ 13:35 by TIFFANY Fox) Excess skin History of vertigo Nephrolithiasis GERD (gastroesophageal reflux disease) Anxiety Depression BMI 39.0-39.9,adult Morbid obesity Right shoulder injury Left lateral epicondylitis Right shoulder tendonitis Carpal tunnel syndrome on both sides Normal vulvar exam Hemorrhoids Diverticulosis Tubular adenoma Encounter for screening colonoscopy Postmenopausal bleeding Well woman exam BENITO III (cervical intraepithelial neoplasia grade III) with severe dysplasia Carpal tunnel syndrome Acute arthritis Seasonal allergic rhinitis Surgical History S/P panniculectomy 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) Hx of colonoscopy (07/2021) Tubal ligation status Family History Mother HTN (hypertension) A-fib Arthritis Father Diabetes HTN (hypertension) Sister Lupus Social History Household Members: Spouse Housing: House Are you a primary skin care consultant to a significant other at home: No Do you presently have visiting nurse or other home services: No Alcohol intake: current Alcohol intake frequency: does not drink Patient Tobacco Use Status: Never used Tobacco service: No Current occupational status: employed 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 Despite contiguous with the right area of dehiscence, no purulence is expressed through there. Both were flushed with 50% hydrogen peroxide and 50% normal saline. Both were packed with quarter-inch iodoform packing covered with dry clean dressing Assessment & Plan Assessment & Plan (1) S/P laparoscopic sleeve gastrectomy: Onset Date: 10/2022 Code(s): Z98.84 - Bariatric surgery status Category: Surgical Plan: Continue Bactrim Continue monitoring drainage from the midline area of dehiscence. Continue packing. Return to clinic tomorrow.
[2024-08-28 14:32] VITALS: BP 110/62; PULSE 74; TEMP 36.4; O2SAT 95; BMI 25.8
--- OUTSIDE RECORDS SUMMARY | 2024-08-28 15:11 | XMS_ITS | Clinical Summary ---
Author Organization [facility] Address [address] [place] [address] Care Team Providers Care Chicken Hatchery Helper Name Role Phone Unavailable Primary Care [...] Upcoming Encounters Date Type Department Care Team ([facility] st Contact Info) Description 09/11/2024 4:20 PM EDT Office Visit [facility] [address] [place] [phone] Thaddeus Wright, [facility] [address] [place] [address] Health Maintenance Due Date Last Done Comments [...] 08/01/2023 Imm-Zoster, Recombinant (1 of 2) 08/01/2023 Ohm-IEPFM-33 (1 - 2023- season) 2023 Alcohol and [...] Relevant to Health Maintenance Insurance HEALTH SAFETY [facility]
--- OUTSIDE RECORDS SUMMARY | 2024-08-28 15:11 | XMS_ITS | Clinical Summary ---
Author Organization [employer] [facility] ity Address [address] [place] [address] Care Team Providers Care Counterintelligence Specialist Name Role Phone Unavailable Primary Care Provider [...]
--- OUTSIDE RECORDS SUMMARY | 2024-08-28 15:11 | XMS_ITS | Clinical Summary ---
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 Discussed re lower calorie intake, increase dietary fiber I gave her information about weight management program for baritric surgery Encounters Date Type Department Care Team Description 08/22/2024 Orders Only [facility] External Provider, [facility] 08/21/2024 Orders Only GENERIC EXTERNAL DATA DEPARTMENT Provider, Generic External Data 08/13/2024 Orders Only GENERIC EXTERNAL DATA DEPARTMENT Provider, Generic External Data 07/18/2024 Orders Only [address] [address] Basilia Colon MD 06/28/2024 Orders Only GENERIC EXTERNAL DATA DEPARTMENT Provider, Generic External Data 06/26/2024 Orders Only GENERIC EXTERNAL DATA DEPARTMENT Provider, Generic External Data 06/22/2024 11:45 AM EDT Office Visit [address] [address] Basilia Colon MD Rheumatoid arthritis involving multiple sites with positive rheumatoid factor ([facility]) (Primary Dx); Benign essential HTN; Dietary counseling; Exercise counseling; Overweight 06/22/2024 Travel 06/21/[address] [address] Basilia Colon MD chart prep 06/15/2024 Patient Outreach [address] [address] Basilia Colon MD Pre-visit Planning (SDOH screening [...] AM EDT Narrative 08/22/2024 12:13 PM EDT [place] [address] [address] Scan Report Signed Patient: Serenity Gómez MR#: [id number] : 1975 Acct:[id number] Age/Sex: 49 / F ADM Date: 08/22/24 Loc: HO.CT Attending Dr: Ted ALLEN Ordering Physician: Ted Beauchamp Date of Service: 08/22/24 Procedure(s): CT abdomen pelvis wo IV con Accession Number(s): [id number] cc: Ted Beauchamp; Basilia Colon MD Report Number: [id number]: Total DLP = 392.00 mGy-cm EXAMINATION: CT [...] 08/22/24 1210 DD/ 1127 TD/TT: 08/22/24 1150 Entry Level Installation Technician: Procedure Note Donotuseinterpreter, Image - 08/22/[address] [address] [address] Scan Report Signed Patient: Serenity Gómez [facility]#: [id number] : 1975Acct:[id number] Age/Sex: 49 / FADM Date: 08/22/24 Loc: HO.CT Attending Dr: Ted ALLEN Ordering Physician: Ted Beauchamp Date of Service: 08/22/24 Procedure(s): CT abdomen pelvis wo IV con Accession Number(s): [id number] cc: Ted Beauchamp; Basilia Colon MD Report Number: [id number]: Total DLP = 392.00 mGy-cm EXAMINATION: CT [...] 08/22/24 1210 DD/ 1127 TD/TT: 08/22/24 1150 Entry Level Installation Technician: [facility] External Provider IMG CT PROCEDURES Final Result * (ABNORMAL) CBC auto differential (08/21/2024 9:32 AM EDT) Only the most recent of2 resultswithin the time period is included. White Blood Count 12.7(H) 4.8 - 10.8 X10*3/uL [facility] Red Blood Count 3.95(L) 4.20 - 5.50 X10*6/uL [facility] Hemoglobin 11.6(L) 12.0 - 16.0 g/dl [facility] Hematocrit 34.8(L) 37.0 - 47.0 % [facility] Mean Corpuscular Volume 88.1 80.0 - 98.0 fL [facility] Mean Corpuscular Hemoglobin 29.4 27.0 - 33.0 pg [facility] Mean Corpuscular HGB Conc 33.3 31.0 - 35.0 g/dl [facility] Red Cell Distribution Width 11.8 11.0 - 16.0 % [facility] Platelet Count 311 160 - 400 X10*3/uL [facility] Mean Platelet Volume 9.4 9.4 - 12.3 fL [facility] Neutrophils Percent Auto 73.1(H) 45 - 73 % [facility] Imm Gran Pct Auto 0.4 0.0 - 0.4 % [facility] Lymphocytes Percent Auto 16.8(L) 20 - 40 % [facility] Monocytes Percent Auto 9.1 2 - 11 % [facility] Eosinophils Percent Auto 0.4 0 - 4 % [facility] Basophils Percent Auto 0.2 0 - 2 % [facility] NRBC Pct Auto 0.0 0.0 - 0.2 /100WBC [facility] Neutrophils Absolute Auto 9.3(H) 2.0 - 8.3 x10*3/uL [facility] Imm Gran Abs Auto 0.05(H) 0.00 - 0.03 X10*3/uL [facility] Lymphocytes Absolute Auto 2.1 1.2 - 4.9 X10*3/uL [facility] Monocytes Absolute Auto 1.2 0.1 - 1.2 X10*3/uL [facility] Eosinophils Absolute Auto 0.1 0.0 - 0.4 X10*3/uL [facility] Basophils Absolute Auto 0.0 0.0 - 0.2 X10*3/uL [facility] NRBC Abs Auto 0.000 0.0 - 0.012 X10*3/uL [facility] 08/21/2024 9:32 AM EDT 08/21/2024 9:32 AM EDT us Generic External Data Provider LAB BLOOD ORDERAB LES Final Result [facility] [address] [place] [phone] * Gram Stain Result (08/13/2024 2:00 PM EDT) 08/13/2024 2:00 PM EDT 08/13/2024 2:20 PM EDT Comment:Abdomen Narrative [facility] - 08/16/2024 8:01 AM EDT [...] Provider HISTORICAL/NON OR DERABLE LABS Final Result [facility] [address] [place] [phone] * BI Mammogram Screening Tomosynthesis Bilateral (07/18/2024 12:10 PM EDT) Anatomical Region Laterality Modality Breast Bilateral Mammography 07/18/2024 12:1 0 PM EDT Narrative 07/27/2024 1:14 PM EDT [address] [place] [address] Mammography Report Signed Patient: Serenity Gómez MR#: [id number] : 1975 Acct:[id number] Age/Sex: 48 / F ADM Date: 07/18/24 Loc: HO.MAMMO Attending Dr: Basilia Colon MD Ordering Physician: Basilia Colon MD Results: 1Ne gative Date of Service: 07/18/24 Follow Up: 1 Year From Orig ina Mammogram Procedure(s): MM tomosynthesis screening BI Accession Number(s): [id number] cc: Basilia Colon MD EXAMINATION: MM SCREENING [...] 07/27/24 1311 DD/ 1210 TD/TT: 07/18/24 1230 Entry Level Installation Technician: Procedure Note Donotuseinterpreter, Image - 07/27/[facility] [address] [place] [address] Mammography Report Signed Patient: Serenity Gómez [facility]#: [id number] : 1975Acct:[id number] Age/Sex: 48 / FADM Date: 07/18/24 Loc: HO.MAMMO Attending Dr: Basilia Colon MD Ordering Physician: Basiila Colon MDResults: 1Ne gative Date of Service: 07/18/24Follow Up: 1 Year From Orig inal Mammogram Procedure(s): MM tomosynthesis screening BI Accession Number(s): [id number] cc: Basilia Colon MD EXAMINATION: MM SCREENING [...] 07/27/24 1311 DD/ 1210 TD/TT: 07/18/24 1230 Entry Level Installation Technician: us Basilia Colon MD IMG BI PROCEDURES Final Result * Gross and Microscopic Level 3 (06/28/2024 12:08 PM EDT) 06/28/2024 12:0 8 PM EDT 06/28/2024 2:20 PM EDT [facility] - 06/29/2024 4:30 PM EDT ----- ------- Name: Serenity Gómez Age/Sex: 48/F : 1975 Unit#: [id number] Attend Dr: Roel Monzon MD Re06/28/24 Status: [facility] Location: [facility] Disch: ----- ------- SPEC : [id number] RECD: 06/28/24-1420 STATUS: ANA MARÍA FERRERA NUM: [id number] AN: 06/28/24-[address]: Roel Monzon MD [...] distinct cysts, lesions or nodules are identified. Exhaust And Muffler Fitter sections are submitted in cassettes A1-A3. CEDS IHC S/NG Disclaimer NOTE: Unless otherwise stated, all tissue is formalin-fixed and paraffin-embedded. Some or all of the immunohistochemical tests reported herein may have been developed and their performance characteristics determined by [facility]. They have not been cleared or approved by the U.S. Food and Drug Administration (FDA). However, the FDA has determined that such clearance or approval is not necessary. This laboratory is certified under the Clinical Laboratory Improvement Amendments of 1988 (CLIA) as qualified to perform high complexity clinical laboratory testing. Copies To: Basilia Colon MD [place] [id number] CONTINUED ON NEXT PAGE ----- ------- Name: Serenity Gómez Age/Sex: 48/F : 1975 Unit#: [id number] Attend Dr: Roel Monzon MD Re06/28/24 Status: [facility] Location: [facility] Disch: ----- ------- SPEC : [id number] RECD: 06/28/[address]142 STATUS: ANA MARÍA HIGHTOWERChristophe NUM: [id number] AN: 06/28/24-[address]: Roel Monzon MD ENTERED: 06/28/24-8508 SP TYPE: Surgical OTHR DR: Basilia Colon MD ORDERED: Gross Micro L3 Copies To: (Continued) Roel Monzon MD [facility] [address] [place] [phone] ----- ------- Signed (signature on file) Guillermina Wakefield MD 06/29/24 1630 ----- ------- END OF REPORT Generic External Data Provider LAB CYTOLOGY NATHALIA GIBBONS Final Result Performing Organization Address [facility] Co de Phone Number [facility] [address] [place] [phone] * Type and screen (06/26/2024 10:45 AM EDT) Pathologist [facility] Blood Type AP [facility] Antibody Screen NEGATIVE [facility] 06/26/2024 10:4 5 AM EDT 06/26/2024 11:00 AM EDT Narrative [facility] - 06/26/2024 11:37 AM EDT witnessed by SmithING:Call Blood Bank (ext. [phone]) to band patient on admission.Type and Screen in effect until 2300 on 06-28-2024 Generic External Data Provider LAB BLOOD BANK TE ST ORDERABLES Final Result Performing Organization Address [facility] Co de Phone Number [facility] [address] [place] [phone] * Partial Thromboplastin Time, Activated (APTT) (06/05/2024 11:20 AM EDT) Partial Thromboplastin Time 29.3 26.0 - 36.8 SEC [facility] Comment:For information rega rding the monitoring of direct thrombininhibitors, please refer to Pharmacy. 06/05/2024 11:2 0 AM EDT 06/05/2024 11:20 AM EDT Generic External Data Provider LAB BLOOD ORDERAB LES Final Result Performing Organization Address [facility]/ZIP Co de Phone Number [facility] [address] [place] [phone] * Prothrombin Time-INR (06/05/2024 11:20 AM EDT) Prothrombin Time 11.3 10.9 - 12.4 SEC [facility] INTERNATIONAL NORM RATIO 1.0 0.9 - 1.1 [facility] Comment:INTERNATIONAL NORMAL IZED RATIO (INR) [...] ORDERAB LES Final Result Performing Organization Address [facility] Co de Phone Number [facility] [address] [place] [phone] * (ABNORMAL) Comprehensive Metabolic Panel (06/05/2024 11:20 AM EDT) Pathologist [facility] Sodium 140 135 - 145 mmol/L [facility] Potassium 4.5 3.3 - 5.1 mmol/L [facility] Chloride 106 96 - 108 mmol/L [facility] Carbon Dioxide 30(H) 22 - 29 mmol/L [facility] Anion Gap 9(L) 12 - 20 [facility] Urea Nitrogen (BUN) 19(H) 9 - 16 mg/dL [facility] Creatinine, Serum 0.67 0.5 - 1.4 mg/dL [facility] Creatinine Clr Calc Pharmacy TNP [facility] Comment:Unable to calculate eCrCL; all parameters not provided. Estimated Glomerular Filt Rate >60 [facility] Comment:Chronic Kidney Disea se: Estimated GFR < 60 mL/min/1.14u7Uieyjm Kidney Disease: Estimated GFR < 15 mL/min/1.73m2 Glucose 89 60 - 115 mg/dL [facility] Calcium 9.1 8.4 - 10.2 mg/dL [facility] Bilirubin, Total 0.9 0.0 - 1.0 mg/dL [facility] Aspartate Amino Transferase 21 5 - 31 U/L [facility] Alanine Aminotransferase 11 0 - 31 U/L [facility] Total Protein 7.8 6.5 - 8.0 g/dL [facility] Albumin Level 4.2 3.5 - 5.0 g/dL [facility] Alkaline Phosphatase 71 39 - 117 U/L [facility] 06/05/2024 11:2 0 AM EDT 06/05/2024 11:20 AM EDT us Generic External Data Provider LAB BLOOD ORDERAB LES Final Result Performing Organization Address City/State/[facility] Co de Phone Number [facility] [address] [place] [phone] * (ABNORMAL) Lipid Panel, Standard (02/24/2024 8:29 AM EST) Triglycerides 61 <150 mg/dL [facility] Comment:Desirable Triglyceri de: less than 150 mg/dLBorderline High Triglyceride 150-199 mg/dLHigh Triglyceride: 200-499 mg/dLVery High Triglyceride: greater than or equal to 5OO mg/dL Cholesterol 187 <200 mg/dL [facility] Comment:Desirable Cholestero l: less than 200 mg/dLBorderline High Cholesterol: 200-239 mg/dLHigh Cholesterol: greater than 239 mg/dL LDL Cholesterol Calculated 110(H) <100 mg/dL [facility] Comment:Desirable LDL: less than 100 mg/dLNear Optimal/Above Optimal LDL: 110- 129 mg/dLBorderline High LDL: 130-159 mg/dLHigh LDL: 160-189 mg/dLVery High LDL: greater than or equal to 190 mg/dL HDL Cholesterol 65 >40 mg/dL [facility] Comment:Desirable HDL: great er than 40 mg/dL Note: This HDL assay may give artificially low results in patients with liver disease. 02/24/2024 8:29 AM EST 02/24/2024 8:29 AM EST us Generic External Data Provider LAB BLOOD ORDERAB LES Final Result Performing Organization Address City/State/[facility] Co de Phone Number [facility] [address] [place] [phone] * Pap Smear (12/29/2022 2:49 PM EST) 12/29/2022 2:49 PM EST 01/03/2023 7:00 AM EST Narrative [facility] - 01/13/2023 4:11 PM EST ----- ------- Name: Serenity Gómez Age/Sex: 47/F : 1975 Unit#: [id number] Attend Dr: Chalino Benton MD Re12/29/22 Status: DEP REF Location: HO.LNP Disch: ----- ------- SPEC : [id number] RECD: 01/03/23 STATUS: ANA MARÍA FERRERA NUM: [id number] AN: 12/29/22-[address] [facility] DR: Chalino Benton MD ENTERED: [...] 59, 66, 68) HPV testing performed by [facility] [facility], [place], [place]. See reference laboratory portion of the EMR for entire report. Clinical Information LMP: Postmenopausal Previous PAP test: 2021, ASCUS, HPV+ Material Received ThinPrep-Cervical Copies To: Basilia Colon MD [address] [place] [address] Chalino Benton MD [address] [place] [address] [address] [place] [phone] ----- ------- Signed (signature on file) MANUEL Uriarte (ASCP) 01/13/23 1611 ----- ------- END OF REPORT us Generic External Data Provider LAB CYTOLOGY ORDE RABLES Final Result [facility] [address] [place] [address] [phone] * HPV E6/E7 RFLX OLGA 16 18/45 (11/11/2021 3:37 PM EDT) HPV mRNA E6/E7 rflx Not Detected Not Detected [facility] Comment: Methodology: Agricultural Equipment Operator-Mediated Amplification This assay detects E6/E7 viral messenger RNA (mRNA) from 14 high-risk HPV types (16,18,31,33,35,39,45,51,52,56,58,59,66,68). Cervical sources are required for HPV testing. If a vaginal source from a patient who has had a total hysterectomy with removal of cervix was submitted, please contact the testing laboratory for alternative testing options. For additional information, please refer to http://education.kaufDA/faq/FDX150o2 (This link if provided for information/ educational purposes only.) THIS TEST WAS PERFORMED AT: [facility] [address] [place] [address] FLO[address],[place] [address] ELIZABETH ANDRES MD 11/11/2021 3:37 PM EDT Chalino Benton MD HISTORICAL/NON ORDERABLE LABS Fi nal Result Performing Organization Address City/[facility]/ZIP Co de Phone Number [facility] * Hm Colonoscopy (07/08/2021 9:47 AM EDT) Historical Provider HEALTH MAINTENANCE Final Result * HIV 1/2 ANTIGEN/ANTIBODY,FOURTH GENERATION W/RFL (10/17/2020 1:05 PM EDT) HIV-1/2 ANTIGEN AND ANTIBODIES, 4TH GENERATION W/ REFLEX NON-REACT ELENA NON-REACT ELENA [facility] Comment: HIV-1 antigen and HIV-1/HIV-2 [...] purpose. For additional information please refer to http://[employer].kaufDA/faq/JGF199 (This link is being provided for informational/ educational purposes only.) The performance of this assay has not been clinically validated in patients less than 2 years old. 10/17/2020 1:05 PM EDT Basilia Colon MD LAB BLOOD ORDERABLES Fin al Result [facility] Anywhere [address] from Last 3 Months or Most Recently Relevant to Health Maintenance Insurance 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
== END 2024-08-28 14:35 | disposition home or self-care (01) ==
LOC: HO.HBS 13:55
PROVIDERS: PCP Internal Medicine; Visit Provider Physician Assistant Surgical
DX: Z98.84 Bariatric surgery status (principal)
CPT/HCPCS: 99024

== ENCOUNTER → 2024-08-28 13:54 | Outpatient (BNVA) | payer OTHER, SELFPAY | PROVIDERS: PCP Internal Medicine; Visit Provider Physician Assistant Surgical | DX: T81.49XA Infection following a procedure, other surgical site, initial encounter (principal); Z98.84 Bariatric surgery status | CPT/HCPCS: 99212 ==

== ENCOUNTER 2024-08-29 13:21 | Outpatient (AMB) | payer OTHER, SELFPAY ==
--- OUTSIDE RECORDS SUMMARY | 2024-08-29 13:52 | XMS_ITS | Clinical Summary ---
Author Organization [employer] [facility] ity Address [address] [place] [address] Care Team Providers Care Religion Professor Name Role Phone Unavailable Primary Care Provider [...]
--- OUTSIDE RECORDS SUMMARY | 2024-08-29 13:52 | XMS_ITS | Clinical Summary ---
Author Organization [employer] Address [address] [place] [address] Care Team Providers Care Sql Server Dba Name Role Phone Basilia Colon MD Primary Care Provider + Allergies No known active allergies Medications tiZANidine (Zanaflex) 4 MG capsuleIndicati ons:Acute pain of right shoulder Take 1 capsule (4 mg) by mouth 3 times daily. 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 Resolved Problems Problem Noted Date Diagnosed Date Resolved Date Obesity (BMI 30.0-34.9) 12/27/2022 11/0 05/2023 Assessment & Plan (12/27/2022 3:25 PM EST): Status Post bariatric surgery Significant decrease in BMI Continue Multivitamins Iron + zinc supplementation F/u [facility] obesity clinic F/u in 6 mos Morbid obesity 09/03/2011 12/12/2023 Overview (12/12/2023): Sp Laparoscopic sleeve gastrectomy on 11/04/22 at [facility] Assessment & Plan (06/16/2022 11:20 AM EDT): Discussed re weight reduction options including exercise, life style modifications, diet, referral to study specialist. Discussed re lower calorie intake, increase dietary fiber I gave her information about weight management program for baritric surgery Encounters Date Type Department Care Team Description 08/22/2024 Orders Only [facility] External Provider, [facility] 08/21/2024 Orders Only GENERIC EXTERNAL DATA DEPARTMENT Provider, Generic External Data 08/13/2024 Orders Only GENERIC EXTERNAL DATA DEPARTMENT Provider, Generic External Data 07/18/2024 Orders Only [address] [address] Basilia Colon MD 06/28/2024 Orders Only GENERIC EXTERNAL DATA DEPARTMENT Provider, Generic External Data 06/26/2024 Orders Only GENERIC EXTERNAL DATA DEPARTMENT Provider, Generic External Data 06/22/2024 11:45 AM EDT Office Visit [address] [address] Basilia Colon MD Rheumatoid arthritis involving multiple sites with positive rheumatoid factor ([facility]) (Primary Dx); Benign essential HTN; Dietary counseling; Exercise counseling; Overweight 06/22/2024 Travel 06/21/[address] [address] Basilia Colon MD chart prep 06/15/2024 Patient Outreach [address] [address] Basilia Colon MD Pre-visit Planning (SDOH screening [...] AM EDT Narrative 08/22/2024 12:13 PM EDT [place] [address] [address] Scan Report Signed Patient: Serenity Gómez MR#: [id number] : 1975 Acct:[id number] Age/Sex: 49 / F ADM Date: 08/22/24 Loc: HO.CT Attending Dr: Ted ALLEN Ordering Physician: Ted Beauchamp Date of Service: 08/22/24 Procedure(s): CT abdomen pelvis wo IV con Accession Number(s): [id number] cc: Ted Beauchamp; Basilia Colon MD Report Number: [id number]: Total DLP = 392.00 mGy-cm EXAMINATION: CT [...] 08/22/24 1210 DD/ 1127 TD/TT: 08/22/24 1150 Motion Picture Actor: Procedure Note Donotuseinterpreter, Image - 08/22/[address] [address] [address] Scan Report Signed Patient: Serenity Gómez [facility]#: [id number] : 1975Acct:[id number] Age/Sex: 49 / FADM Date: 08/22/24 Loc: HO.CT Attending Dr: Ted ALLEN Ordering Physician: Ted Beauchamp Date of Service: 08/22/24 Procedure(s): CT abdomen pelvis wo IV con Accession Number(s): [id number] cc: Ted Beauchamp; Basilia Colon MD Report Number: [id number]: Total DLP = 392.00 mGy-cm EXAMINATION: CT [...] 08/22/24 1210 DD/ 1127 TD/TT: 08/22/24 1150 Motion Picture Actor: [facility] External Provider IMG CT PROCEDURES Final Result * (ABNORMAL) CBC auto differential (08/21/2024 9:32 AM EDT) Only the most recent of2 resultswithin the time period is included. White Blood Count 12.7(H) 4.8 - 10.8 X10*3/uL [facility] Red Blood Count 3.95(L) 4.20 - 5.50 X10*6/uL [facility] Hemoglobin 11.6(L) 12.0 - 16.0 g/dl [facility] Hematocrit 34.8(L) 37.0 - 47.0 % [facility] Mean Corpuscular Volume 88.1 80.0 - 98.0 fL [facility] Mean Corpuscular Hemoglobin 29.4 27.0 - 33.0 pg [facility] Mean Corpuscular HGB Conc 33.3 31.0 - 35.0 g/dl [facility] Red Cell Distribution Width 11.8 11.0 - 16.0 % [facility] Platelet Count 311 160 - 400 X10*3/uL [facility] Mean Platelet Volume 9.4 9.4 - 12.3 fL [facility] Neutrophils Percent Auto 73.1(H) 45 - 73 % [facility] Imm Gran Pct Auto 0.4 0.0 - 0.4 % [facility] Lymphocytes Percent Auto 16.8(L) 20 - 40 % [facility] Monocytes Percent Auto 9.1 2 - 11 % [facility] Eosinophils Percent Auto 0.4 0 - 4 % [facility] Basophils Percent Auto 0.2 0 - 2 % [facility] NRBC Pct Auto 0.0 0.0 - 0.2 /100WBC [facility] Neutrophils Absolute Auto 9.3(H) 2.0 - 8.3 x10*3/uL [facility] Imm Gran Abs Auto 0.05(H) 0.00 - 0.03 X10*3/uL [facility] Lymphocytes Absolute Auto 2.1 1.2 - 4.9 X10*3/uL [facility] Monocytes Absolute Auto 1.2 0.1 - 1.2 X10*3/uL [facility] Eosinophils Absolute Auto 0.1 0.0 - 0.4 X10*3/uL [facility] Basophils Absolute Auto 0.0 0.0 - 0.2 X10*3/uL [facility] NRBC Abs Auto 0.000 0.0 - 0.012 X10*3/uL [facility] 08/21/2024 9:32 AM EDT 08/21/2024 9:32 AM EDT us Generic External Data Provider LAB BLOOD ORDERAB LES Final Result [facility] [address] [place] [phone] * Gram Stain Result (08/13/2024 2:00 PM EDT) 08/13/2024 2:00 PM EDT 08/13/2024 2:20 PM EDT Comment:Abdomen Narrative [facility] - 08/16/2024 8:01 AM EDT [...] Provider HISTORICAL/NON OR DERABLE LABS Final Result [facility] [address] [place] [phone] * BI Mammogram Screening Tomosynthesis Bilateral (07/18/2024 12:10 PM EDT) Anatomical Region Laterality Modality Breast Bilateral Mammography 07/18/2024 12:1 0 PM EDT Narrative 07/27/2024 1:14 PM EDT [address] [place] [address] Mammography Report Signed Patient: Serenity Gómez MR#: [id number] : 1975 Acct:[id number] Age/Sex: 48 / F ADM Date: 07/18/24 Loc: HO.MAMMO Attending Dr: Basilia Colon MD Ordering Physician: Basilia Colon MD Results: 1Ne gative Date of Service: 07/18/24 Follow Up: 1 Year From Orig ina Mammogram Procedure(s): MM tomosynthesis screening BI Accession Number(s): [id number] cc: Basilia Colon MD EXAMINATION: MM SCREENING [...] DD/ 1210 TD/TT: 07/18/24 1230 Motion Picture Actor: Procedure Note Donotuseinterpreter, Image - 07/27/20[facility] [address] [place] [address] Mammography Report Signed Patient: Serenity Gómez [facility]#: [id number] : 1975Acct:[id number] Age/Sex: 48 / FADM Date: 07/18/24 Loc: HO.MAMMO Attending Dr: Basilia Colon MD Ordering Physician: Basilia Colon MDResults: 1Ne gative Date of Service: 07/18/24Follow Up: 1 Year From Orig inal Mammogram Procedure(s): MM tomosynthesis screening BI Accession Number(s): [id number] cc: Basilia Colon MD EXAMINATION: MM SCREENING [...] DD/ 1210 TD/TT: 07/18/24 1230 Motion Picture Actor: us Basilia Colon MD IMG BI PROCEDURES Final Result * Gross and Microscopic Level 3 (06/28/2024 12:08 PM EDT) 06/28/2024 12:0 8 PM EDT 06/28/2024 2:20 PM EDT [facility] - 06/29/2024 4:30 PM EDT ----- ------- Name: Serenity Gómez Age/Sex: 48/F : 1975 Unit#: [id number] Attend Dr: Roel Monzon MD Re06/28/24 Status: [facility] Location: [facility] Disch: ----- ------- SPEC : [id number] RECD: 06/28/24-1420 STATUS: ANA MARÍA FERRERA NUM: [id number] AN: 06/28/24-[address]: Roel Monzon MD [...] distinct cysts, lesions or nodules are identified. Antenna Machine Operator sections are submitted in cassettes A1-A3. CEDS IHC S/NG Disclaimer NOTE: Unless otherwise stated, all tissue is formalin-fixed and paraffin-embedded. Some or all of the immunohistochemical tests reported herein may have been developed and their performance characteristics determined by [facility]. They have not been cleared or approved by the U.S. Food and Drug Administration (FDA). However, the FDA has determined that such clearance or approval is not necessary. This laboratory is certified under the Clinical Laboratory Improvement Amendments of 1988 (CLIA) as qualified to perform high complexity clinical laboratory testing. Copies To: Basilia Colon MD [place] [id number] CONTINUED ON NEXT PAGE ----- ------- Name: Serenity Gómez Age/Sex: 48/F : 1975 Unit#: [id number] Attend Dr: Roel Monzon MD Re06/28/24 Status: [facility] [place]: [facility] Disch: ----- ------- SPEC : [id number] RECD: 06/28/[address] STATUS: ANA MARÍA HIGHTOWERChristophe NUM: [id number] AN: 06/28/24-[address]: Roel Monzon MD ENTERED: 06/28/24-4750 SP TYPE: Surgical OTHR DR: Basilia Colon MD ORDERED: Gross Micro L3 Copies To: (Continued) Roel Monzon MD [facility] Weight Management Program [address] [place] [address] ----- ------- Signed (signature on file) Guillermina Wakefield MD 06/29/24 1630 ----- ------- END OF REPORT Generic External Data Provider LAB CYTOLOGY NATHALIA GIBBONS Final Result Performing Organization Address [facility] Co de Phone Number [facility] [address] [place] [phone] * Type and screen (06/26/2024 10:45 AM EDT) Pathologist [facility] Blood Type AP [facility] Antibody Screen NEGATIVE [facility] 06/26/2024 10:4 5 AM EDT 06/26/2024 11:00 AM EDT Narrative [facility] - 06/26/2024 11:37 AM EDT witnessed by SmithING:Call Blood Bank (ext. [phone]) to band patient on admission.Type and Screen in effect until 2300 on 06-28-2024 Generic External Data Provider LAB BLOOD BANK TE ST ORDERABLES Final Result Performing Organization Address [facility] Co de Phone Number [facility] [address] [place] [address] [phone] * Partial Thromboplastin Time, Activated (APTT) (06/05/2024 11:20 AM EDT) Partial Thromboplastin Time 29.3 26.0 - 36.8 SEC [facility] Comment:For information rega rding the monitoring of direct thrombininhibitors, please refer to Pharmacy. 06/05/2024 11:2 0 AM EDT 06/05/2024 11:20 AM EDT Generic External Data Provider LAB BLOOD ORDERAB LES Final Result Performing Organization Address [facility]/ZIP Co de Phone Number [facility] [address] [place] [phone] * Prothrombin Time-INR (06/05/2024 11:20 AM EDT) Prothrombin Time 11.3 10.9 - 12.4 SEC [facility] INTERNATIONAL NORM RATIO 1.0 0.9 - 1.1 [facility] Comment:INTERNATIONAL NORMAL IZED RATIO (INR) [...] ORDERAB LES Final Result Performing Organization Address [facility] Co de Phone Number [facility] [address] [place] [phone] * (ABNORMAL) Comprehensive Metabolic Panel (06/05/2024 11:20 AM EDT) Pathologist [facility] Sodium 140 135 - 145 mmol/L [facility] Potassium 4.5 3.3 - 5.1 mmol/L [facility] Chloride 106 96 - 108 mmol/L [facility] Carbon Dioxide 30(H) 22 - 29 mmol/L [facility] Anion Gap 9(L) 12 - 20 [facility] Urea Nitrogen (BUN) 19(H) 9 - 16 mg/dL [facility] Creatinine, Serum 0.67 0.5 - 1.4 mg/dL [facility] Creatinine Clr Calc Pharmacy TNP [facility] Comment:Unable to calculate eCrCL; all parameters not provided. Estimated Glomerular Filt Rate >60 [facility] Comment:Chronic Kidney Disea se: Estimated GFR < 60 mL/min/1.71g0Kuodoh Kidney Disease: Estimated GFR < 15 mL/min/1.73m2 Glucose 89 60 - 115 mg/dL [facility] Calcium 9.1 8.4 - 10.2 mg/dL [facility] Bilirubin, Total 0.9 0.0 - 1.0 mg/dL [facility] Aspartate Amino Transferase 21 5 - 31 U/L [facility] Alanine Aminotransferase 11 0 - 31 U/L [facility] Total Protein 7.8 6.5 - 8.0 g/dL [facility] Albumin Level 4.2 3.5 - 5.0 g/dL [facility] Alkaline Phosphatase 71 39 - 117 U/L [facility] 06/05/2024 11:2 0 AM EDT 06/05/2024 11:20 AM EDT us Generic External Data Provider LAB BLOOD ORDERAB LES Final Result Performing Organization Address City/State/[facility] Co de Phone Number [facility] [address] [place] [phone] * (ABNORMAL) Lipid Panel, Standard (02/24/2024 8:29 AM EST) Triglycerides 61 <150 mg/dL [facility] Comment:Desirable Triglyceri de: less than 150 mg/dLBorderline High Triglyceride 150-199 mg/dLHigh Triglyceride: 200-499 mg/dLVery High Triglyceride: greater than or equal to 5OO mg/dL Cholesterol 187 <200 mg/dL [facility] Comment:Desirable Cholestero l: less than 200 mg/dLBorderline High Cholesterol: 200-239 mg/dLHigh Cholesterol: greater than 239 mg/dL LDL Cholesterol Calculated 110(H) <100 mg/dL [facility] Comment:Desirable LDL: less than 100 mg/dLNear Optimal/Above Optimal LDL: 110- 129 mg/dLBorderline High LDL: 130-159 mg/dLHigh LDL: 160-189 mg/dLVery High LDL: greater than or equal to 190 mg/dL HDL Cholesterol 65 >40 mg/dL [facility] Comment:Desirable HDL: great er than 40 mg/dL Note: This HDL assay may give artificially low results in patients with liver disease. 02/24/2024 8:29 AM EST 02/24/2024 8:29 AM EST us Generic External Data Provider LAB BLOOD ORDERAB LES Final Result Performing Organization Address City/State/[facility] Co de Phone Number [facility] [address] [place] [phone] * Pap Smear (12/29/2022 2:49 PM EST) 12/29/2022 2:49 PM EST 01/03/2023 7:00 AM EST Narrative [facility] - 01/13/2023 4:11 PM EST ----- ------- Name: Serenity Gómez Age/Sex: 47/F : 1975 Unit#: [id number] Attend Dr: Chalino Benton MD Re12/29/22 Status: DEP REF Location: HO.LNP Disch: ----- ------- SPEC : [id number] RECD: 01/03/23 STATUS: ANA MARÍA FERRERA NUM: [id number] AN: 12/29/22-[address] [facility] [address]: Chalino Benton MD ENTERED: 01/04/23 [...] 59, 66, 68) HPV testing performed by [facility], [place], [place]. See reference laboratory portion of the EMR for entire report. Clinical Information LMP: Postmenopausal Previous PAP test: 2021, ASCUS, HPV+ Material Received ThinPrep-Cervical Copies To: Basilia Colon MD [address] [place] [phone] Chalino Benton MD [address] [place] [address] [address] [place] [address] ----- ------- Signed (signature on file) MANUEL Uriarte (ASCP) 01/13/23 1611 ----- ------- END OF REPORT us Generic External Data Provider LAB CYTOLOGY ORDE RABLES Final Result [facility] [address] [place] [address] [phone] * HPV E6/E7 RFLX OLGA 16 18/45 (11/11/2021 3:37 PM EDT) HPV mRNA E6/E7 rflx Not Detected Not Detected [facility] Comment: Methodology: Motor Vehicle Salesperson-Mediated Amplification This assay detects E6/E7 viral messenger RNA (mRNA) from 14 high-risk HPV types (16,18,31,33,35,39,45,51,52,56,58,59,66,68). Cervical sources are required for HPV testing. If a vaginal source from a patient who has had a total hysterectomy with removal of cervix was submitted, please contact the testing laboratory for alternative testing options. For additional information, please refer to http://education.Konokopia/faq/CZA132a2 (This link if provided for information/ educational purposes only.) THIS TEST WAS PERFORMED AT: [facility] [address] [place] [address] FLOOR,[place] [phone] ELIZABETH ANDRES MD 11/11/2021 3:37 PM EDT Chalino Benton MD HISTORICAL/NON ORDERABLE LABS Fi nal Result Performing Organization Address City/[facility]/ZIP Co de Phone Number [facility] * Hm Colonoscopy (07/08/2021 9:47 AM EDT) Historical Provider HEALTH MAINTENANCE Final Result * HIV 1/2 ANTIGEN/ANTIBODY,FOURTH GENERATION W/RFL (10/17/2020 1:05 PM EDT) HIV-1/2 ANTIGEN AND ANTIBODIES, 4TH GENERATION W/ REFLEX NON-REACT ELENA NON-REACT ELENA [facility] Comment: HIV-1 antigen and HIV-1/HIV-2 [...] purpose. For additional information please refer to http://mobiManage.Konokopia/faq/HPP065 (This link is being provided for informational/ educational purposes only.) The performance of this assay has not been clinically validated in patients less than 2 years old. 10/17/2020 1:05 PM EDT Basilia Colon MD LAB BLOOD ORDERABLES Fin al Result [facility] [address] from Last 3 Months or Most Recently Relevant to Health Maintenance Insurance [facility] Care Teams Sql Server Dba Relationship Specialty Start Date End Date Basilia Colon MD [address] [place] [phone] PCP - General Family Medicine 12/27/17 [place] [facility] 06/29/24
--- OUTSIDE RECORDS SUMMARY | 2024-08-29 13:52 | XMS_ITS | Clinical Summary ---
Author Organization [facility] Address [address] [place] [address] Care Team Providers Care Mirror Painter Name Role Phone Unavailable Primary Care Provider [...] Upcoming Encounters Date Type Department Care Team ([facility] st Contact Info) Description 09/11/2024 4:20 PM EDT Office Visit [facility] [address] [place] [phone] Thaddeus Wright, [facility] [address] [place] [address] Health Maintenance Due Date Last Done Comments [...] 08/01/2023 Imm-Zoster, Recombinant (1 of 2) 08/01/2023 [id number] (1 - 2023- season) 2023 Alcohol and [...] Relevant to Health Maintenance Insurance HEALTH SAFETY [facility]
--- NOTE | 2024-08-29 13:53 | MHC.OFFVISWM ---
VS Expanded 08/29/24 14:31 BP 123/79 Blood Pressure Location Rt brachial Blood Pressure Position Sitting Pulse 70 Pulse Source Pulse Oximeter Temp 97.2 F Temperature Source Temporal Artery Scan Pulse Oximetry 97 Oxygen Delivery Method Room Air Height 4 ft 11 in Weight 128 lb 12.8 oz BMI 26.0 Body Fat % 31.3 Body Fat Mass 40.4 Fat Free Mass 88.4 Visceral Fat Rating 6.0 Body Water % 48.6 Body Water Mass 62.6 Muscle Mass/Score 84.0 Basal Metabolic Rate/Score 1,207 Intake Visit Reasons: OV Panniculectomy 06/28/24 Allergies No Known Allergies Allergy (Verified 08/29/24 13:57) HPI Comments Details: 49-year-old female returns to the office today in follow-up. She is status post panniculectomy on 06/28/2024. She developed postoperative wound abscess requiring drainage. The incision has dehisced along the right lateral transverse incision and midline transverse incision. She remains on Bactrim DS 1 tab p.o. b.i.d., today is day 13 of 20 for MRSA culture positive bacteria. This has been packed with iodoform quarter-inch packing on a daily basis. She reports overall continued subjective feelings of improvement. No fevers or chills. She has improved significantly since initiating this treatment. She continues on her meal plan: Orgain 1/2 scoop x 2 fit crunch bar x 2 meal w 4 forks protein and 4 forks veg [facility] Medical History (Updated 08/20/24 @ 13:35 by TIFFANY Fox) Excess skin History of vertigo Nephrolithiasis GERD (gastroesophageal reflux disease) Anxiety Depression BMI 39.0-39.9,adult Morbid obesity Right shoulder injury Left lateral epicondylitis Right shoulder tendonitis Carpal tunnel syndrome on both sides Normal vulvar exam Hemorrhoids Diverticulosis Tubular adenoma Encounter for screening colonoscopy Postmenopausal bleeding Well woman exam BENITO III (cervical intraepithelial neoplasia grade III) with severe dysplasia Carpal tunnel syndrome Acute arthritis Seasonal allergic rhinitis Surgical History S/P panniculectomy 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) Hx of colonoscopy (07/2021) Tubal ligation status Family History Mother HTN (hypertension) A-fib Arthritis Father Diabetes HTN (hypertension) Sister Lupus Social History Household Members: Spouse Housing: House Are you a primary rn urgent care to a significant other at home: No Do you presently have visiting nurse or other home services: No Alcohol intake: current Alcohol intake frequency: does not drink Patient Tobacco Use Status: Never used Tobacco service: No Current occupational status: employed 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 The midline abscess opening continues to have purulence although less than previously. Both were flushed with 50% hydrogen peroxide 50% normal saline. Packed with quarter-inch iodoform gauze. Assessment & Plan Assessment & Plan (1) Post-operative wound abscess: Code(s): T81.49XA - Infection following a procedure, other surgical site, initial encounter Category: Medical Plan: Continue Bactrim DS 1 p.o. b.i.d., day 13 . Continue meal plan as directed by Dr. Monzon Return to the office tomorrow
[2024-08-29 14:31] VITALS: BP 123/79; PULSE 70; TEMP 36.2; O2SAT 97; BMI 26.0
== END 2024-08-29 14:33 | disposition home or self-care (01) ==
LOC: HO.HBS 13:21
PROVIDERS: PCP Internal Medicine; Visit Provider Physician Assistant Surgical
DX: T81.49XA Infection following a procedure, other surgical site, initial encounter (principal)
CPT/HCPCS: 99213

== ENCOUNTER → 2024-08-29 13:21 | Outpatient (BNVA) | payer OTHER, SELFPAY | PROVIDERS: PCP Internal Medicine; Visit Provider Physician Assistant Surgical | DX: T81.49XA Infection following a procedure, other surgical site, initial encounter (principal); Z98.890 Other specified postprocedural states | CPT/HCPCS: 99212 ==

== ENCOUNTER 2024-08-30 13:40 | Outpatient (AMB) | payer OTHER, SELFPAY ==
--- OUTSIDE RECORDS SUMMARY | 2024-08-30 13:45 | XMS_ITS | Clinical Summary ---
Author Organization [employer] Address [address] [facility] [address] [place] [address] Care Team Providers Care Hadoop Administrator Name Role Phone Basilia Colon MD Primary Care Provider + Allergies No known active allergies Medications tiZANidine (Zanaflex) 4 MG capsuleIndicati ons:Acute pain of right shoulder Take 1 capsule (4 mg) by mouth 3 times daily. 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 Resolved Problems Problem Noted Date Diagnosed Date Resolved Date Obesity (BMI 30.0-34.9) 12/27/2022 11/0 05/2023 Assessment & Plan (12/27/2022 3:25 PM EST): Status Post bariatric surgery Significant decrease in BMI Continue Multivitamins Iron + zinc supplementation F/u [facility] obesity clinic F/u in 6 mos Morbid obesity 09/03/2011 12/12/2023 Overview (12/12/2023): Sp Laparoscopic sleeve gastrectomy on 11/04/22 at [facility] Assessment & Plan (06/16/2022 11:20 AM EDT): Discussed re weight reduction options including exercise, life style modifications, diet, referral to replenishment specialist. Discussed re lower calorie intake, increase dietary fiber I gave her information about weight management program for baritric surgery Encounters Date Type Department Care Team Description 08/22/2024 Orders Only [facility] External Provider, [facility] 08/21/2024 Orders Only GENERIC EXTERNAL DATA DEPARTMENT Provider, Generic External Data 08/13/2024 Orders Only GENERIC EXTERNAL DATA DEPARTMENT Provider, Generic External Data 07/18/2024 Orders Only [address] [address] Basilia Colon MD 06/28/2024 Orders Only GENERIC EXTERNAL DATA DEPARTMENT Provider, Generic External Data 06/26/2024 Orders Only GENERIC EXTERNAL DATA DEPARTMENT Provider, Generic External Data 06/22/2024 11:45 AM EDT Office Visit [address] [address] Basilia Colon MD Rheumatoid arthritis involving multiple sites with positive rheumatoid factor ([facility]) (Primary Dx); Benign essential HTN; Dietary counseling; Exercise counseling; Overweight 06/22/2024 Travel 06/21/[address] [address] Basilia Colon MD chart prep 06/15/2024 Patient Outreach [address] [address] Basilia Colon MD Pre-visit Planning (SDOH screening [...] AM EDT Narrative 08/22/2024 12:13 PM EDT [place] [address] [address] Scan Report Signed Patient: Serenity Gómez MR#: [id number] : 1975 Acct:[id number] Age/Sex: 49 / F ADM Date: 08/22/24 Loc: HO.CT Attending Dr: Ted ALLEN Ordering Physician: Ted Beauchamp Date of Service: 08/22/24 Procedure(s): CT abdomen pelvis wo IV con Accession Number(s): [id number] cc: Ted Beauchamp; Basilia Colon MD Report Number: [id number]: Total DLP = 392.00 mGy-cm EXAMINATION: CT [...] 08/22/24 1210 DD/ 1127 TD/TT: 08/22/24 1150 Enterprise Systems Manager: Procedure Note Donotuseinterpreter, Image - 08/22/[address] [address] [address] Scan Report Signed Patient: Serenity Gómez [facility]#: [id number] : 1975Acct:[id number] Age/Sex: 49 / FADM Date: 08/22/24 Loc: HO.CT Attending Dr: Ted ALLEN Ordering Physician: Ted Beauchamp Date of Service: 08/22/24 Procedure(s): CT abdomen pelvis wo IV con Accession Number(s): [id number] cc: Ted Beauchamp; Basilia Colon MD Report Number: [id number]: Total DLP = 392.00 mGy-cm EXAMINATION: CT [...] 08/22/24 1210 DD/ 1127 TD/TT: 08/22/24 1150 Enterprise Systems Manager: [facility] External Provider IMG CT PROCEDURES Final Result * (ABNORMAL) CBC auto differential (08/21/2024 9:32 AM EDT) Only the most recent of2 resultswithin the time period is included. White Blood Count 12.7(H) 4.8 - 10.8 X10*3/uL [facility] Red Blood Count 3.95(L) 4.20 - 5.50 X10*6/uL [facility] Hemoglobin 11.6(L) 12.0 - 16.0 g/dl [facility] Hematocrit 34.8(L) 37.0 - 47.0 % [facility] Mean Corpuscular Volume 88.1 80.0 - 98.0 fL [facility] Mean Corpuscular Hemoglobin 29.4 27.0 - 33.0 pg [facility] Mean Corpuscular HGB Conc 33.3 31.0 - 35.0 g/dl [facility] Red Cell Distribution Width 11.8 11.0 - 16.0 % [facility] Platelet Count 311 160 - 400 X10*3/uL [facility] Mean Platelet Volume 9.4 9.4 - 12.3 fL [facility] Neutrophils Percent Auto 73.1(H) 45 - 73 % [facility] Imm Gran Pct Auto 0.4 0.0 - 0.4 % [facility] Lymphocytes Percent Auto 16.8(L) 20 - 40 % [facility] Monocytes Percent Auto 9.1 2 - 11 % [facility] Eosinophils Percent Auto 0.4 0 - 4 % [facility] Basophils Percent Auto 0.2 0 - 2 % [facility] NRBC Pct Auto 0.0 0.0 - 0.2 /100WBC [facility] Neutrophils Absolute Auto 9.3(H) 2.0 - 8.3 x10*3/uL [facility] Imm Gran Abs Auto 0.05(H) 0.00 - 0.03 X10*3/uL [facility] Lymphocytes Absolute Auto 2.1 1.2 - 4.9 X10*3/uL [facility] Monocytes Absolute Auto 1.2 0.1 - 1.2 X10*3/uL [facility] Eosinophils Absolute Auto 0.1 0.0 - 0.4 X10*3/uL [facility] Basophils Absolute Auto 0.0 0.0 - 0.2 X10*3/uL [facility] NRBC Abs Auto 0.000 0.0 - 0.012 X10*3/uL [facility] 08/21/2024 9:32 AM EDT 08/21/2024 9:32 AM EDT us Generic External Data Provider LAB BLOOD ORDERAB LES Final Result [facility] [address] [place] [phone] * Gram Stain Result (08/13/2024 2:00 PM EDT) 08/13/2024 2:00 PM EDT 08/13/2024 2:20 PM EDT Comment:Abdomen Narrative [facility] - 08/16/2024 8:01 [...] Provider HISTORICAL/NON OR DERABLE LABS Final Result [facility] [address] [place] [phone] * BI Mammogram Screening Tomosynthesis Bilateral (07/18/2024 12:10 PM EDT) Anatomical Region Laterality Modality Breast Bilateral Mammography 07/18/2024 12:1 0 PM EDT Narrative 07/27/2024 1:14 PM EDT [address] [place] [address] Mammography Report Signed Patient: Serenity Gómez MR#: [id number] : 1975 Acct:[id number] Age/Sex: 48 / F ADM Date: 07/18/24 Loc: HO.MAMMO Attending Dr: Basilia Colon MD Ordering Physician: Basilia Colon MD Results: 1Ne gative Date of Service: 07/18/24 Follow Up: 1 Year From Orig ina Mammogram Procedure(s): MM tomosynthesis screening BI Accession Number(s): [id number] cc: Basilia Colon MD EXAMINATION: MM SCREENING [...] 07/27/24 1311 DD/ 1210 TD/TT: 07/18/24 1230 Enterprise Systems Manager: Procedure Note Donotuseinterpreter, Image - 07/27/[facility] [address] [place] [address] Mammography Report Signed Patient: Serenity Gómez [facility]#: [id number] : 1975Acct:[id number] Age/Sex: 48 / FADM Date: 07/18/24 Loc: HO.MAMMO Attending Dr: Basilia Colon MD Ordering Physician: Basilia Colon MDResults: 1Ne gative Date of Service: 07/18/24Follow Up: 1 Year From Orig inal Mammogram Procedure(s): MM tomosynthesis screening BI Accession Number(s): [id number] cc: Basilia Colon MD EXAMINATION: MM SCREENING [...] 07/27/24 1311 DD/ 1210 TD/TT: 07/18/24 1230 Enterprise Systems Manager: us Basilia Colon MD IMG BI PROCEDURES Final Result * Gross and Microscopic Level 3 (06/28/2024 12:08 PM EDT) 06/28/2024 12:0 8 PM EDT 06/28/2024 2:20 PM EDT [facility] - 06/29/2024 4:30 PM EDT ----- ------- Name: Serenity Gómez Age/Sex: 48/F : 1975 Unit#: [id number] Attend Dr: Roel Monzon MD Re06/28/24 Status: [facility] Location: [facility] Disch: ----- ------- SPEC : [id number] RECD: 06/28/24-1420 STATUS: ANA MARÍA FERRERA NUM: [id number] AN: 06/28/24-[address]: Roel Monzon MD [...] distinct cysts, lesions or nodules are identified. Gas Combustion Engineer sections are submitted in cassettes A1-A3. CEDS IHC S/NG Disclaimer NOTE: Unless otherwise stated, all tissue is formalin-fixed and paraffin-embedded. Some or all of the immunohistochemical tests reported herein may have been developed and their performance characteristics determined by [facility]. They have not been cleared or approved by the U.S. Food and Drug Administration (FDA). However, the FDA has determined that such clearance or approval is not necessary. This laboratory is certified under the Clinical Laboratory Improvement Amendments of 1988 (CLIA) as qualified to perform high complexity clinical laboratory testing. Copies To: Basilia Colon MD [facility] [id number] CONTINUED ON NEXT PAGE ----- ------- Name: Serenity Gómez Age/Sex: 48/F : 1975 Unit#: [id number] Attend Dr: Roel Monzon MD Re06/28/24 Status: [facility] [place] [place] Location: [facility] Disch: ----- ------- SPEC : [id number] RECD: 06/28/24142 STATUS: ANA MARÍA HIGHTOWERChristophe NUM: [id number] AN: 06/28/24-[address]: Roel Monzon MD ENTERED: 06/28/24-2651 SP TYPE: Surgical OTHR DR: Basilia Colon MD ORDERED: Gross Micro L3 Copies To: (Continued) Roel Monzon MD [facility] Weight Management Program [address] [place] [phone] ----- ------- Signed (signature on file) Guillermina Wakefield MD 06/29/24 1630 ----- ------- END OF REPORT Generic External Data Provider LAB CYTOLOGY NATHALIA GIBBONS Final Result Performing Organization Address [facility] Co de Phone Number [facility] [address] [place] [phone] * Type and screen (06/26/2024 10:45 AM EDT) Pathologist [facility] Blood Type AP [facility] Antibody Screen NEGATIVE [facility] 06/26/2024 10:4 5 AM EDT 06/26/2024 11:00 AM EDT Narrative [facility] - 06/26/2024 11:37 AM EDT witnessed by SmithING:Call Blood Bank (ext. [phone]) to band patient on admission.Type and Screen in effect until 2300 on 06-28-2024 Generic External Data Provider LAB BLOOD BANK TE ST ORDERABLES Final Result Performing Organization Address [facility] Co de Phone Number [facility] [address] [place] [address] [phone] * Partial Thromboplastin Time, Activated (APTT) (06/05/2024 11:20 AM EDT) Partial Thromboplastin Time 29.3 26.0 - 36.8 SEC [facility] Comment:For information rega rding the monitoring of direct thrombininhibitors, please refer to Pharmacy. 06/05/2024 11:2 0 AM EDT 06/05/2024 11:20 AM EDT Generic External Data Provider LAB BLOOD ORDERAB LES Final Result Performing Organization Address [facility]/ZIP Co de Phone Number [facility] [address] [place] [phone] * Prothrombin Time-INR (06/05/2024 11:20 AM EDT) Prothrombin Time 11.3 10.9 - 12.4 SEC [facility] INTERNATIONAL NORM RATIO 1.0 0.9 - 1.1 [facility] Comment:INTERNATIONAL NORMAL IZED [...] ORDERAB LES Final Result Performing Organization Address [facility] Co de Phone Number [facility] [address] [place] [phone] * (ABNORMAL) Comprehensive Metabolic Panel (06/05/2024 11:20 AM EDT) Pathologist [facility] Sodium 140 135 - 145 mmol/L [facility] Potassium 4.5 3.3 - 5.1 mmol/L [facility] Chloride 106 96 - 108 mmol/L [facility] Carbon Dioxide 30(H) 22 - 29 mmol/L [facility] Anion Gap 9(L) 12 - 20 [facility] Urea Nitrogen (BUN) 19(H) 9 - 16 mg/dL [facility] Creatinine, Serum 0.67 0.5 - 1.4 mg/dL [facility] Creatinine Clr Calc Pharmacy TNP [facility] Comment:Unable to calculate eCrCL; all parameters not provided. Estimated Glomerular Filt Rate >60 [facility] Comment:Chronic Kidney Disea se: Estimated GFR < 60 mL/min/1.54e0Sijroq Kidney Disease: Estimated GFR < 15 mL/min/1.73m2 Glucose 89 60 - 115 mg/dL [facility] Calcium 9.1 8.4 - 10.2 mg/dL [facility] Bilirubin, Total 0.9 0.0 - 1.0 mg/dL [facility] Aspartate Amino Transferase 21 5 - 31 U/L [facility] Alanine Aminotransferase 11 0 - 31 U/L [facility] Total Protein 7.8 6.5 - 8.0 g/dL [facility] Albumin Level 4.2 3.5 - 5.0 g/dL [facility] Alkaline Phosphatase 71 39 - 117 U/L [facility] 06/05/2024 11:2 0 AM EDT 06/05/2024 11:20 AM EDT us Generic External Data Provider LAB BLOOD ORDERAB LES Final Result Performing Organization Address City/State/[facility] Co de Phone Number [facility] [address] [place] [phone] * (ABNORMAL) Lipid Panel, Standard (02/24/2024 8:29 AM EST) Triglycerides 61 <150 mg/dL [facility] Comment:Desirable Triglyceri de: less than 150 mg/dLBorderline High Triglyceride 150-199 mg/dLHigh Triglyceride: 200-499 mg/dLVery High Triglyceride: greater than or equal to 5OO mg/dL Cholesterol 187 <200 mg/dL [facility] Comment:Desirable Cholestero l: less than 200 mg/dLBorderline High Cholesterol: 200-239 mg/dLHigh Cholesterol: greater than 239 mg/dL LDL Cholesterol Calculated 110(H) <100 mg/dL [facility] Comment:Desirable LDL: less than 100 mg/dLNear Optimal/Above Optimal LDL: 110- 129 mg/dLBorderline High LDL: 130-159 mg/dLHigh LDL: 160-189 mg/dLVery High LDL: greater than or equal to 190 mg/dL HDL Cholesterol 65 >40 mg/dL [facility] Comment:Desirable HDL: great er than 40 mg/dL Note: This HDL assay may give artificially low results in patients with liver disease. 02/24/2024 8:29 AM EST 02/24/2024 8:29 AM EST us Generic External Data Provider LAB BLOOD ORDERAB LES Final Result Performing Organization Address City/State/[facility] Co de Phone Number [facility] [address] [place] [phone] * Pap Smear (12/29/2022 2:49 PM EST) 12/29/2022 2:49 PM EST 01/03/2023 7:00 AM EST Narrative [facility] - 01/13/2023 4:11 PM EST ----- ------- Name: Serenity Gómez Age/Sex: 47/F : 1975 Unit#: [id number] Attend Dr: Chalino Benton MD Re12/29/22 Status: DEP REF Location: HO.LNP Disch: ----- ------- SPEC : [id number] RECD: 01/03/23 STATUS: ANA MARÍA FERRERA NUM: [id number] AN: 12/29/22-1448 [facility] DR: Chalino Benton MD ENTERED: [...] 59, 66, 68) HPV testing performed by [employer], [place], [place]. See reference laboratory portion of the EMR for entire report. Clinical Information LMP: Postmenopausal Previous PAP test: 2021, ASCUS, HPV+ Material Received ThinPrep-Cervical Copies To: Basilia Colon MD [address] [place] [phone] Chalino Benton MD [address] [place] [address] [address] [place] [phone] ----- ------- Signed (signature on file) MANUEL Uriarte (ASCP) 01/13/23 1611 ----- ------- END OF REPORT us Generic External Data Provider LAB CYTOLOGY ORDE RABLES Final Result [facility] [address] [place] [phone] * HPV E6/E7 RFLX OLGA 16 18/45 (11/11/2021 3:37 PM EDT) HPV mRNA E6/E7 rflx Not Detected Not Detected [facility] Comment: Methodology: Assembler For Puller Over Hand-Mediated Amplification This assay detects E6/E7 viral messenger RNA (mRNA) from 14 high-risk HPV types (16,18,31,33,35,39,45,51,52,56,58,59,66,68). Cervical sources are required for HPV testing. If a vaginal source from a patient who has had a total hysterectomy with removal of cervix was submitted, please contact the testing laboratory for alternative testing options. For additional information, please refer to http://education.[employer]/faq/VDJ119l7 (This link if provided for information/ educational purposes only.) THIS TEST WAS PERFORMED AT: [facility] [address] [place] [address] FLOOR,[place] [address] ELIZABETH ANDRES MD 11/11/2021 3:37 PM EDT Chalino Benton MD HISTORICAL/NON ORDERABLE LABS Fi nal Result Performing Organization Address City/[facility]/ZIP Co de Phone Number [facility] * Hm Colonoscopy (07/08/2021 9:47 AM EDT) Historical Provider HEALTH MAINTENANCE Final Result * HIV 1/2 ANTIGEN/ANTIBODY,FOURTH GENERATION W/RFL (10/17/2020 1:05 PM EDT) HIV-1/2 ANTIGEN AND ANTIBODIES, 4TH GENERATION W/ REFLEX NON-REACT ELENA NON-REACT ELENA [facility] Comment: HIV-1 antigen and HIV-1/HIV-2 [...] purpose. For additional information please refer to http://[employer]/faq/RBK385 (This link is being provided for informational/ educational purposes only.) The performance of this assay has not been clinically validated in patients less than 2 years old. 10/17/2020 1:05 PM EDT Basilia Colon MD LAB BLOOD ORDERABLES Fin al Result [facility] Anywhere [address] from Last 3 Months or Most Recently Relevant to Health Maintenance Insurance [facility] Care Teams Hadoop Administrator Relationship Specialty Start Date End Date Basilia Colon MD [address] [place] [phone] PCP - General Family Medicine 12/27/17 [facility] 06/29/24
--- OUTSIDE RECORDS SUMMARY | 2024-08-30 13:45 | XMS_ITS | Clinical Summary ---
Author Organization [facility] Address [address] [place] [address] Care Team Providers Care Lacer And Tier Name Role Phone Unavailable Primary Care Provider [...] Upcoming Encounters Date Type Department Care Team ([facility] st Contact Info) Description 09/11/2024 4:20 PM EDT Office Visit [facility] [address] [place] [phone] Thaddeus Wright, [facility] [address] [place] [address] Health Maintenance Due Date Last Done Comments [...] 08/01/2023 Imm-Zoster, Recombinant (1 of 2) 08/01/2023 [id number] (1 - 2023- season) 2023 Alcohol and [...] Relevant to Health Maintenance Insurance [facility]
--- OUTSIDE RECORDS SUMMARY | 2024-08-30 13:45 | XMS_ITS | Clinical Summary ---
Author Organization [employer] [facility] ity Address [address] [place] [address] Care Team Providers Care Staff Appraiser Name Role Phone Unavailable Primary Care Provider [...]
[2024-08-30 14:22] VITALS: BP 113/60; PULSE 64; TEMP 36.3; O2SAT 100; BMI 26.0
--- NOTE | 2024-08-30 14:22 | A.OFFVIS_ITS ---
VS Expanded 08/30/24 14:22 BP 113/60 Blood Pressure Location Rt brachial Blood Pressure Position Sitting Pulse 64 Pulse Source Pulse Oximeter Temp 97.4 F Temperature Source Temporal Artery Scan Pulse Oximetry 100 Oxygen Delivery Method Room Air Height 4 ft 11 in Weight 128 lb 12.8 oz BMI 26.0 Body Fat % 30.7 Body Fat Mass 39.4 Fat Free Mass 89.2 Visceral Fat Rating 6.0 Body Water % 49.3 Body Water Mass 63.4 Muscle Mass/Score 84.6 Basal Metabolic Rate/Score 1,216 Intake Visit Reasons: OV Panniculectomy 06/28/24 Allergies No Known Allergies Allergy (Verified 08/29/24 13:57) HPI Comments Details: 49-year-old female returns to the office today in follow-up. She is status post panniculectomy on 06/28/2024. She developed postoperative wound abscess requiring drainage. The incision has dehisced along the right lateral transverse incision and midline transverse incision. She remains on Bactrim DS 1 tab p.o. b.i.d., today is day 14 of 20 for MRSA culture positive bacteria. This has been packed with iodoform quarter-inch packing on a daily basis. She reports overall continued subjective feelings of improvement. No fevers or chills. Less drainage She has improved significantly since initiating this treatment. She continues on her meal plan: Orgain 1/2 scoop x 2 fit crunch bar x 2 meal w 4 forks protein and 4 forks veg [facility] Medical History (Updated 08/20/24 @ 13:35 by TIFFANY Fox) Excess skin History of vertigo Nephrolithiasis GERD (gastroesophageal reflux disease) Anxiety Depression BMI 39.0-39.9,adult Morbid obesity Right shoulder injury Left lateral epicondylitis Right shoulder tendonitis Carpal tunnel syndrome on both sides Normal vulvar exam Hemorrhoids Diverticulosis Tubular adenoma Encounter for screening colonoscopy Postmenopausal bleeding Well woman exam BENITO III (cervical intraepithelial neoplasia grade III) with severe dysplasia Carpal tunnel syndrome Acute arthritis Seasonal allergic rhinitis Surgical History S/P panniculectomy 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) Hx of colonoscopy (07/2021) Tubal ligation status Family History Mother HTN (hypertension) A-fib Arthritis Father Diabetes HTN (hypertension) Sister Lupus Social History Household Members: Spouse Housing: House Are you a primary career technical counselor to a significant other at home: No Do you presently have visiting nurse or other home services: No Alcohol intake: current Alcohol intake frequency: does not drink Patient Tobacco Use Status: Never used Tobacco service: No Current occupational status: employed 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 Beefy granulation tissue. The midline pocket has minimal pus. Both openings flushed with 50% hydrogen peroxide 50% normal saline. Both packed with 1/4 inch iodoform packing strip and covered with dry clean dressing. Assessment & Plan Assessment & Plan (1) Post-operative wound abscess: Code(s): T81.49XA - Infection following a procedure, other surgical site, initial encounter Category: Medical Plan: Overall, continues improvement. Less purulence from the midline and no purulence from the right lateral opening. Continue current antibiotics, treatment plan. Return to clinic tomorrow
== END 2024-08-30 14:24 | disposition home or self-care (01) ==
LOC: HO.HBS 13:41
PROVIDERS: PCP Internal Medicine; Visit Provider Physician Assistant Surgical
DX: T81.49XA Infection following a procedure, other surgical site, initial encounter (principal)
CPT/HCPCS: 99024

== ENCOUNTER → 2024-08-30 13:40 | Outpatient (BNVA) | payer OTHER, SELFPAY | PROVIDERS: PCP Internal Medicine; Visit Provider Physician Assistant Surgical | DX: T81.49XA Infection following a procedure, other surgical site, initial encounter (principal); Z98.890 Other specified postprocedural states; Z90.3 Acquired absence of stomach [part of] | CPT/HCPCS: 99212 ==

== ENCOUNTER 2024-08-31 13:51 | Outpatient (AMB) | payer OTHER, SELFPAY ==
--- NOTE | 2024-08-31 13:54 | A.OFFVIS_ITS ---
VS Expanded 08/31/24 13:59 BP 126/63 Blood Pressure Location Rt brachial Blood Pressure Position Sitting Pulse 77 Pulse Source Pulse Oximeter Temp 97.0 F Temperature Source Temporal Artery Scan Pulse Oximetry 95 Oxygen Delivery Method Room Air Height 4 ft 11 in Weight 129 lb 3.2 oz BMI 26.1 Body Fat % 30.9 Body Fat Mass 40.0 Fat Free Mass 89.2 Visceral Fat Rating 6.0 Body Water % 49.0 Body Water Mass 63.2 Muscle Mass/Score 84.6 Basal Metabolic Rate/Score 1,216 Intake Visit Reasons: OV Panniculectomy 06/28/24 Allergies No Known Allergies Allergy (Verified 08/31/24 14:01) HPI Comments Details: 49-year-old female returns to the office today in follow-up. She is status post panniculectomy on 06/28/2024. She developed postoperative wound abscess requiring drainage. The incision has dehisced along the right lateral transverse incision and midline transverse incision. She remains on Bactrim DS 1 tab p.o. b.i.d., today is day 15 of 20 for MRSA culture positive bacteria. This has been packed with iodoform quarter-inch packing on a daily basis. She reports overall continued subjective feelings of improvement. No fevers or chills. Less drainage She has improved significantly since initiating this treatment. She continues on her meal plan: Orgain 1/2 scoop x 2 fit crunch bar x 2 meal w 4 forks protein and 4 forks veg [facility] Medical History (Updated 08/20/24 @ 13:35 by TIFFANY Fox) Excess skin History of vertigo Nephrolithiasis GERD (gastroesophageal reflux disease) Anxiety Depression BMI 39.0-39.9,adult Morbid obesity Right shoulder injury Left lateral epicondylitis Right shoulder tendonitis Carpal tunnel syndrome on both sides Normal vulvar exam Hemorrhoids Diverticulosis Tubular adenoma Encounter for screening colonoscopy Postmenopausal bleeding Well woman exam BENITO III (cervical intraepithelial neoplasia grade III) with severe dysplasia Carpal tunnel syndrome Acute arthritis Seasonal allergic rhinitis Surgical History S/P panniculectomy 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) Hx of colonoscopy (07/2021) Tubal ligation status Family History Mother HTN (hypertension) A-fib Arthritis Father Diabetes HTN (hypertension) Sister Lupus Social History Household Members: Spouse Housing: House Are you a primary career and technology education teacher to a significant other at home: No Do you presently have visiting nurse or other home services: No Alcohol intake: current Alcohol intake frequency: does not drink Patient Tobacco Use Status: Never used Tobacco service: No Current occupational status: employed 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 No drainage from the right opening. No warmth, no fluctuance. Mild midline induration. Minimal purulence noted from the midline. Flushed with 50% hydrogen peroxide and 50% normal saline. Packed with quarter-inch iodoform gauze, covered with dry clean dressing. Assessment & Plan Assessment & Plan (1) Post-operative wound abscess: Code(s): T81.49XA - Infection following a procedure, other surgical site, initial encounter Category: Medical Plan: Continue current plan. Continue meal plan. Continue antibiotics. Return to clinic Tuesday.
--- OUTSIDE RECORDS SUMMARY | 2024-08-31 13:54 | XMS_ITS | Clinical Summary ---
Author Organization [facility] Address [address] [place] [address] Care Team Providers Care Home Service Consultant Name Role Phone Unavailable Primary Care Provider [...] Upcoming Encounters Date Type Department Care Team ([facility] st Contact Info) Description 09/11/2024 4:20 PM EDT Office Visit [facility] [address] [place] [phone] hTaddeus Wright, [facility] [address] [place] [address] Health Maintenance Due Date Last Done Comments [...] 08/01/2023 Imm-Zoster, Recombinant (1 of 2) 08/01/2023 [id number] (1 - 2023- season) 2023 Alcohol and [...] Relevant to Health Maintenance Insurance HEALTH SAFETY [facility]
--- OUTSIDE RECORDS SUMMARY | 2024-08-31 13:54 | XMS_ITS | Clinical Summary ---
Author Organization [employer] [facility] ity Address [address] [place] [address] Care Team Providers Care Brake Operator Helper Name Role Phone Unavailable Primary [...]
--- OUTSIDE RECORDS SUMMARY | 2024-08-31 13:54 | XMS_ITS | Clinical Summary ---
Author Organization [employer] Address [address] [facility] [address] [place] [address] Care Team Providers Care Process Manager Name Role Phone Basilia Colon MD Primary Care Provider + Allergies No known active allergies Medications tiZANidine (Zanaflex) 4 MG capsuleIndicati ons:Acute pain of right shoulder Take 1 capsule (4 mg) by mouth 3 times daily. 90 capsule 1 03/09/2022 Active ergocalciferol (Vitamin D2) 1.25 MG (96262 UT) capsule TAKE 1 CAPSULE BY MOUTH [...] (12/12/2023 1:26 PM EST): On 10/2022 at [facility] Screening mammogram for breast cancer 07/01/2023 Assessment [...] and FU with me PRN Cervical intraepithelial doridna plasia grade III with severe dysplasia 03/06/2018 Assessment & Plan (07/01/2023 12:46 PM EDT): Resolved, last PAP was wnl Fu w/ [facility] [employer] [facility] for PAP smear 12/2023 Assessment & Plan (06/16/2022 11:21 AM EDT): PAP smear on 12/03/21 showed NIL/+HPV FU with MANAGER [employer] on 11/2022 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 Resolved Problems Problem Noted Date Diagnosed Date Resolved Date Obesity (BMI 30.0-34.9) 12/27/2022 11/0 05/2023 Assessment & Plan (12/27/2022 3:25 PM EST): Status Post bariatric surgery Significant decrease in BMI Continue Multivitamins Iron + zinc supplementation F/u [facility] obesity clinic F/u in 6 mos Morbid obesity 09/03/2011 12/12/2023 Overview (12/12/2023): Sp Laparoscopic sleeve gastrectomy on 11/04/22 at [facility] Assessment & Plan (06/16/2022 11:20 AM EDT): Discussed re weight reduction options including exercise, life style modifications, diet, referral to commissioning specialist. Discussed re lower calorie intake, increase dietary fiber I gave her information about weight management program for baritric surgery Encounters Date Type Department Care Team Description 08/22/2024 Orders Only [facility] External Provider, [facility] 08/21/2024 Orders Only GENERIC EXTERNAL DATA DEPARTMENT Provider, Generic External Data 08/13/2024 Orders Only GENERIC EXTERNAL DATA DEPARTMENT Provider, Generic External Data 07/18/2024 Orders Only [address] [address] Basilia Colon MD 06/28/2024 Orders Only GENERIC EXTERNAL DATA DEPARTMENT Provider, Generic External Data 06/26/2024 Orders Only GENERIC EXTERNAL DATA DEPARTMENT Provider, Generic External Data 06/22/2024 11:45 AM EDT Office Visit [address] [address] Basilia Colon MD Rheumatoid arthritis involving multiple sites with positive rheumatoid factor ([facility]) (Primary Dx); Benign essential HTN; Dietary counseling; Exercise counseling; Overweight 06/22/2024 Travel 06/21/[address] [address] Basilia Colon MD chart prep 06/15/2024 Patient Outreach [address] [address] Basilia Colon MD Pre-visit Planning (SDOH screening [...] AM EDT Narrative 08/22/2024 12:13 PM EDT [place] [address] CT Scan Report Signed Patient: Serenity Gómez MR#: [id number] : 1975 Acct:[id number] Age/Sex: 49 / F ADM Date: 08/22/24 Loc: HO.CT Attending Dr: Ted ALLEN Ordering Physician: Ted Beauchamp Date of Service: 08/22/24 Procedure(s): CT abdomen pelvis wo IV con Accession Number(s): [id number] cc: Ted Beauchamp; Basilia Colon MD Report Number: [id number]: Total DLP = 392.00 mGy-cm EXAMINATION: CT [...] Raymundo MD Signed By: <Electronically signed by Donavno Raymundo MD in OV> 08/22/24 1210 DD/ 1127 TD/TT: 08/22/24 1150 Donor Floor Technician: Procedure Note Donotuseinterpreter, Image - 08/22/[address] [address] [address] Scan Report Signed Patient: Serenity Gómez [facility]#: [id number] : 1975Acct:[id number] Age/Sex: 49 / FADM Date: 08/22/24 Loc: HO.CT Attending Dr: Ted ALLEN Ordering Physician: Ted Beauchamp Date of Service: 08/22/24 Procedure(s): CT abdomen pelvis wo IV con Accession Number(s): [id number] cc: Ted Beauchamp; Basilia Colon MD Report Number: [id number]: Total DLP = 392.00 mGy-cm EXAMINATION: CT [...] 08/22/24 1210 DD/ 1127 TD/TT: 08/22/24 1150 Donor Floor Technician: [employer] External Provider IMG CT PROCEDURES Final Result * (ABNORMAL) CBC auto differential (08/21/2024 9:32 AM EDT) Only the most recent of2 resultswithin the time period is included. White Blood Count 12.7(H) 4.8 - 10.8 X10*3/uL [facility] Red Blood Count 3.95(L) 4.20 - 5.50 X10*6/uL [facility] Hemoglobin 11.6(L) 12.0 - 16.0 g/dl [facility] Hematocrit 34.8(L) 37.0 - 47.0 % [facility] Mean Corpuscular Volume 88.1 80.0 - 98.0 fL [facility] Mean Corpuscular Hemoglobin 29.4 27.0 - 33.0 pg [facility] Mean Corpuscular HGB Conc 33.3 31.0 - 35.0 g/dl [facility] Red Cell Distribution Width 11.8 11.0 - 16.0 % [facility] Platelet Count 311 160 - 400 X10*3/uL [facility] Mean Platelet Volume 9.4 9.4 - 12.3 fL [facility] Neutrophils Percent Auto 73.1(H) 45 - 73 % [facility] Imm Gran Pct Auto 0.4 0.0 - 0.4 % [facility] Lymphocytes Percent Auto 16.8(L) 20 - 40 % [facility] Monocytes Percent Auto 9.1 2 - 11 % [facility] Eosinophils Percent Auto 0.4 0 - 4 % [facility] Basophils Percent Auto 0.2 0 - 2 % [facility] NRBC Pct Auto 0.0 0.0 - 0.2 /100WBC [facility] Neutrophils Absolute Auto 9.3(H) 2.0 - 8.3 x10*3/uL [facility] Imm Gran Abs Auto 0.05(H) 0.00 - 0.03 X10*3/uL [facility] Lymphocytes Absolute Auto 2.1 1.2 - 4.9 X10*3/uL [facility] Monocytes Absolute Auto 1.2 0.1 - 1.2 X10*3/uL [facility] Eosinophils Absolute Auto 0.1 0.0 - 0.4 X10*3/uL [facility] Basophils Absolute Auto 0.0 0.0 - 0.2 X10*3/uL [facility] NRBC Abs Auto 0.000 0.0 - 0.012 X10*3/uL [facility] 08/21/2024 9:32 AM EDT 08/21/2024 9:32 AM EDT us Generic External Data Provider LAB BLOOD ORDERAB LES Final Result [facility] [address] [place] [phone] * Gram Stain Result (08/13/2024 2:00 PM EDT) 08/13/2024 2:00 PM EDT 08/13/2024 2:20 PM EDT Comment:Abdomen Narrative [facility] - 08/16/2024 8:01 AM EDT [...] Provider HISTORICAL/NON OR DERABLE LABS Final Result [facility] [address] [place] [phone] * BI Mammogram Screening Tomosynthesis Bilateral (07/18/2024 12:10 PM EDT) Anatomical Region Laterality Modality Breast Bilateral Mammography 07/18/2024 12:1 0 PM EDT Narrative 07/27/2024 1:14 PM EDT [address] [place] [address] Mammography Report Signed Patient: Serenity Gómez MR#: [id number] : 1975 Acct:[id number] Age/Sex: 48 / F ADM Date: 07/18/24 Loc: HO.MAMMO Attending Dr: Basilia Colon MD Ordering Physician: Basilia Colon MD Results: 1Ne gative Date of Service: 07/18/24 Follow Up: 1 Year From Orig ina Mammogram Procedure(s): MM tomosynthesis screening BI Accession Number(s): [id number] cc: Basilia Colon MD EXAMINATION: MM SCREENING [...] 07/27/24 1311 DD/ 1210 TD/TT: 07/18/24 1230 Donor Floor Technician: Procedure Note Donotuseinterpreter, Image - 07/27/20[facility] [address] [place] [address] Mammography Report Signed Patient: Serenity Gómez [facility]#: [id number] : 1975Acct:[id number] Age/Sex: 48 / FADM Date: 07/18/24 Loc: HO.MAMMO Attending Dr: Basilia Colon MD Ordering Physician: Basilia Colon MDResults: 1Ne gative Date of Service: 07/18/24Follow Up: 1 Year From Orig inal Mammogram Procedure(s): MM tomosynthesis screening BI Accession Number(s): [id number] cc: Basilia Colon MD EXAMINATION: MM SCREENING [...] 07/27/24 1311 DD/ 1210 TD/TT: 07/18/24 1230 Donor Floor Technician: us Basilia Colon MD IMG BI PROCEDURES Final Result * Gross and Microscopic Level 3 (06/28/2024 12:08 PM EDT) 06/28/2024 12:0 8 PM EDT 06/28/2024 2:20 PM EDT [facility] - 06/29/2024 4:30 PM EDT ----- ------- Name: Serenity Gómez Age/Sex: 48/F : 1975 Unit#: [id number] Attend Dr: Roel Monzon MD Re06/28/24 Status: [facility] Location: [facility] Disch: ----- ------- SPEC : [id number] RECD: 06/28/24-1420 STATUS: ANA MARÍA FERRERA NUM: [id number] AN: 06/28/24-[address]: Roel Monzon MD [...] distinct cysts, lesions or nodules are identified. Brim Pouncing Machine Operator sections are submitted in cassettes A1-A3. CEDS IHC S/NG Disclaimer NOTE: Unless otherwise stated, all tissue is formalin-fixed and paraffin-embedded. Some or all of the immunohistochemical tests reported herein may have been developed and their performance characteristics determined by [facility]. They have not been cleared or approved by the U.S. Food and Drug Administration (FDA). However, the FDA has determined that such clearance or approval is not necessary. This laboratory is certified under the Clinical Laboratory Improvement Amendments of 1988 (CLIA) as qualified to perform high complexity clinical laboratory testing. Copies To: Basilia Colon MD [place] [id number] CONTINUED ON NEXT PAGE ----- ------- Name: Serenity Gómez Age/Sex: 48/F : 1975 Unit#: [id number] Attend Dr: Roel Monzon MD Re06/28/24 Status: [facility] Location: [facility] Disch: ----- ------- SPEC : [id number] RECD: 06/28/24142 STATUS: ANA MARÍA HIGHTOWERChristophe NUM: [id number] AN: 06/28/24-[address]: Roel Monzon MD ENTERED: 06/28/24-6071 SP TYPE: Surgical OTHR DR: Basilia Colon MD ORDERED: Gross Micro L3 Copies To: (Continued) Roel Monzon MD [facility] Weight Management Program [address] [place] [phone] ----- ------- Signed (signature on file) Guillermina Wakefield MD 06/29/24 1630 ----- ------- END OF REPORT Generic External Data Provider LAB CYTOLOGY NATHALIA GIBBONS Final Result Performing Organization Address [facility] Co de Phone Number [facility] [address] [place] [phone] * Type and screen (06/26/2024 10:45 AM EDT) Pathologist [facility] Blood Type AP [facility] Antibody Screen NEGATIVE [facility] 06/26/2024 10:4 5 AM EDT 06/26/2024 11:00 AM EDT Narrative [facility] - 06/26/2024 11:37 AM EDT witnessed by SmithING:Call Blood Bank (ext. [phone]) to band patient on admission.Type and Screen in effect until 2300 on 06-28-2024 Generic External Data Provider LAB BLOOD BANK TE ST ORDERABLES Final Result Performing Organization Address [facility] Co de Phone Number [facility] [address] [place] [phone] * Partial Thromboplastin Time, Activated (APTT) (06/05/2024 11:20 AM EDT) Partial Thromboplastin Time 29.3 26.0 - 36.8 SEC [facility] Comment:For information rega rding the monitoring of direct thrombininhibitors, please refer to Pharmacy. 06/05/2024 11:2 0 AM EDT 06/05/2024 11:20 AM EDT Generic External Data Provider LAB BLOOD ORDERAB LES Final Result Performing Organization Address [facility]/ZIP Co de Phone Number [facility] [address] [place] [phone] * Prothrombin Time-INR (06/05/2024 11:20 AM EDT) Prothrombin Time 11.3 10.9 - 12.4 SEC [facility] INTERNATIONAL NORM RATIO 1.0 0.9 - 1.1 [facility] Comment:INTERNATIONAL NORMAL IZED RATIO [...] LES Final Result Performing Organization Address [facility] Co de Phone Number [facility] [address] [place] [phone] * (ABNORMAL) Comprehensive Metabolic Panel (06/05/2024 11:20 AM EDT) Pathologist [facility] Sodium 140 135 - 145 mmol/L [facility] Potassium 4.5 3.3 - 5.1 mmol/L [facility] Chloride 106 96 - 108 mmol/L [facility] Carbon Dioxide 30(H) 22 - 29 mmol/L [facility] Anion Gap 9(L) 12 - 20 [facility] Urea Nitrogen (BUN) 19(H) 9 - 16 mg/dL [facility] Creatinine, Serum 0.67 0.5 - 1.4 mg/dL [facility] Creatinine Clr Calc Pharmacy TNP [facility] Comment:Unable to calculate eCrCL; all parameters not provided. Estimated Glomerular Filt Rate >60 [facility] Comment:Chronic Kidney Disea se: Estimated GFR < 60 mL/min/1.65a8Rctxao Kidney Disease: Estimated GFR < 15 mL/min/1.73m2 Glucose 89 60 - 115 mg/dL [facility] Calcium 9.1 8.4 - 10.2 mg/dL [facility] Bilirubin, Total 0.9 0.0 - 1.0 mg/dL [facility] Aspartate Amino Transferase 21 5 - 31 U/L [facility] Alanine Aminotransferase 11 0 - 31 U/L [facility] Total Protein 7.8 6.5 - 8.0 g/dL [facility] Albumin Level 4.2 3.5 - 5.0 g/dL [facility] Alkaline Phosphatase 71 39 - 117 U/L [facility] 06/05/2024 11:2 0 AM EDT 06/05/2024 11:20 AM EDT us Generic External Data Provider LAB BLOOD ORDERAB LES Final Result Performing Organization Address City/State/[facility] Co de Phone Number [facility] [address] [place] [phone] * (ABNORMAL) Lipid Panel, Standard (02/24/2024 8:29 AM EST) Triglycerides 61 <150 mg/dL [facility] Comment:Desirable Triglyceri de: less than 150 mg/dLBorderline High Triglyceride 150-199 mg/dLHigh Triglyceride: 200-499 mg/dLVery High Triglyceride: greater than or equal to 5OO mg/dL Cholesterol 187 <200 mg/dL [facility] Comment:Desirable Cholestero l: less than 200 mg/dLBorderline High Cholesterol: 200-239 mg/dLHigh Cholesterol: greater than 239 mg/dL LDL Cholesterol Calculated 110(H) <100 mg/dL [facility] Comment:Desirable LDL: less than 100 mg/dLNear Optimal/Above Optimal LDL: 110- 129 mg/dLBorderline High LDL: 130-159 mg/dLHigh LDL: 160-189 mg/dLVery High LDL: greater than or equal to 190 mg/dL HDL Cholesterol 65 >40 mg/dL [facility] Comment:Desirable HDL: great er than 40 mg/dL Note: This HDL assay may give artificially low results in patients with liver disease. 02/24/2024 8:29 AM EST 02/24/2024 8:29 AM EST us Generic External Data Provider LAB BLOOD ORDERAB LES Final Result Performing Organization Address City/State/[facility] Co de Phone Number [facility] [address] [place] [phone] * Pap Smear (12/29/2022 2:49 PM EST) 12/29/2022 2:49 PM EST 01/03/2023 7:00 AM EST Narrative [facility] - 01/13/2023 4:11 PM EST ----- ------- Name: Serenity Gómez Age/Sex: 47/F : 1975 Unit#: [id number] Attend Dr: Chalino Benton MD Re12/29/22 Status: DEP REF Location: HO.LNP Disch: ----- ------- SPEC : [id number] RECD: 01/03/23 STATUS: ANA MARÍA FERRERA NUM: [id number] AN: 12/29/22-[address] [facility] [address]: Chalino Benton MD ENTERED: 01/04/23 [...] 59, 66, 68) HPV testing performed by [facility], [place], [place]. See reference laboratory portion of the EMR for entire report. Clinical Information LMP: Postmenopausal Previous PAP test: 2021, ASCUS, HPV+ Material Received ThinPrep-Cervical Copies To: Basilia Colon MD [address] [place] [phone] Chalino Benton MD [address] [place] [address] Dr[address] [place] [phone] ----- ------- Signed (signature on file) MANUEL Uriarte (ASCP) 01/13/23 1611 ----- ------- END OF REPORT us Generic External Data Provider LAB CYTOLOGY ORDE RABLES Final Result [facility] [address] [place] [phone] * HPV E6/E7 RFLX OLGA 16 18/45 (11/11/2021 3:37 PM EDT) HPV mRNA E6/E7 rflx Not Detected Not Detected [facility] Comment: Methodology: Field Specialist-Mediated Amplification This assay detects E6/E7 viral messenger RNA (mRNA) from 14 high-risk HPV types (16,18,31,33,35,39,45,51,52,56,58,59,66,68). Cervical sources are required for HPV testing. If a vaginal source from a patient who has had a total hysterectomy with removal of cervix was submitted, please contact the testing laboratory for alternative testing options. For additional information, please refer to http://education.[employer] [facility]/faq/FZI044l4 (This link if provided for information/ educational purposes only.) THIS TEST WAS PERFORMED AT: [facility] [address] [place] [address] FLOOR,[place] [address] ELIZABETH ANDRES MD 11/11/2021 3:37 PM EDT Chalino Benton MD HISTORICAL/NON ORDERABLE LABS Fi nal Result Performing Organization Address City/[facility]/ZIP Co de Phone Number [facility] * Hm Colonoscopy (07/08/2021 9:47 AM EDT) Historical Provider HEALTH MAINTENANCE Final Result * HIV 1/2 ANTIGEN/ANTIBODY,FOURTH GENERATION W/RFL (10/17/2020 1:05 PM EDT) HIV-1/2 ANTIGEN AND ANTIBODIES, 4TH GENERATION W/ REFLEX NON-REACT ELENA NON-REACT [facility]LE[facility] Comment: HIV-1 antigen and HIV-1/HIV-2 [...] purpose. For additional information please refer to http://[employer] [facility]/faq/SNU662 (This link is being provided for informational/ educational purposes only.) The performance of this assay has not been clinically validated in patients less than 2 years old. 10/17/2020 1:05 PM EDT Basilia Colon MD LAB BLOOD ORDERABLES Fin al Result [facility] [address] from Last 3 Months or Most Recently Relevant to Health Maintenance Insurance [facility] Care Teams Process Manager Relationship Specialty Start Date End Date Basilia Colon MD [address] [place] [phone] PCP - General Family Medicine 12/27/17 [place] [facility] 06/29/24
[2024-08-31 13:59] VITALS: BP 126/63; PULSE 77; TEMP 36.1; O2SAT 95; BMI 26.1
== END 2024-08-31 14:40 | disposition home or self-care (01) ==
LOC: HO.HBS 13:51
PROVIDERS: PCP Internal Medicine; Visit Provider Physician Assistant Surgical
DX: T81.49XA Infection following a procedure, other surgical site, initial encounter (principal)
CPT/HCPCS: 99024

== ENCOUNTER → 2024-08-31 13:51 | Outpatient (BNVA) | payer OTHER, SELFPAY | PROVIDERS: PCP Internal Medicine; Visit Provider Physician Assistant Surgical | DX: T81.49XD Infection following a procedure, other surgical site, subsequent encounter (principal); Z79.2 Long term (current) use of antibiotics; Z98.890 Other specified postprocedural states | CPT/HCPCS: 99212 ==

== ENCOUNTER 2024-09-03 11:38 | Outpatient (AMB) | payer OTHER, SELFPAY ==
--- NOTE | 2024-09-03 11:50 | A.OFFVIS_ITS ---
VS Expanded 09/03/24 12:12 BP 121/64 Blood Pressure Location Rt brachial Blood Pressure Position Sitting Pulse 68 Pulse Source Pulse Oximeter Temp 97.9 F Temperature Source Temporal Artery Scan Pulse Oximetry 97 Oxygen Delivery Method Room Air Height 4 ft 11 in Weight 132 lb 12.8 oz BMI 26.8 Body Fat % 31.9 Body Fat Mass 42.4 Fat Free Mass 90.4 Visceral Fat Rating 7.0 Body Water % 48.3 Body Water Mass 64.2 Muscle Mass/Score 85.8 Basal Metabolic Rate/Score 1,233 Intake Visit Reasons: OV Panniculectomy 06/28/24 Allergies No Known Allergies Allergy (Verified 08/31/24 14:01) HPI Comments Details: 49-year-old female returns to the office today in follow-up. She is status post panniculectomy on 06/28/2024. She continues with daily packing to the midline abscess pocket which has significantly improved. She continues Bactrim, continues meal plan, continues binder. [facility] Medical History (Updated 08/20/24 @ 13:35 by TIFFANY Fox) Excess skin History of vertigo Nephrolithiasis GERD (gastroesophageal reflux disease) Anxiety Depression BMI 39.0-39.9,adult Morbid obesity Right shoulder injury Left lateral epicondylitis Right shoulder tendonitis Carpal tunnel syndrome on both sides Normal vulvar exam Hemorrhoids Diverticulosis Tubular adenoma Encounter for screening colonoscopy Postmenopausal bleeding Well woman exam BENITO III (cervical intraepithelial neoplasia grade III) with severe dysplasia Carpal tunnel syndrome Acute arthritis Seasonal allergic rhinitis Surgical History S/P panniculectomy 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) Hx of colonoscopy (07/2021) Tubal ligation status Family History Mother HTN (hypertension) A-fib Arthritis Father Diabetes HTN (hypertension) Sister Lupus Social History Household Members: Spouse Housing: House Are you a primary home care assistant to a significant other at home: No Do you presently have visiting nurse or other home services: No Alcohol intake: current Alcohol intake frequency: does not drink Patient Tobacco Use Status: Never used Tobacco service: No Current occupational status: employed 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 Flushed with 50% hydrogen peroxide and 50% normal saline. The previously noted opening to the right lateral incision has no drainage whatsoever and no tenderness. Assessment & Plan Assessment & Plan (1) Post-operative wound abscess: Code(s): T81.49XA - Infection following a procedure, other surgical site, initial encounter Category: Medical Plan: Continue Bactrim, day 18 of 20. No further packing to the right lateral wound, continue packing with quarter-inch iodoform to the midline cavity. Return to clinic tomorrow.
[2024-09-03 12:12] VITALS: BP 121/64; PULSE 68; TEMP 36.6; O2SAT 97; BMI 26.8
--- OUTSIDE RECORDS SUMMARY | 2024-09-03 12:54 | XMS_ITS | Clinical Summary ---
Author Organization [employer] [facility] ity Address [address] [place] [address] Care Team Providers Care Early Childhood Services Coordinator Name Role Phone Unavailable Primary Care Provider [...]
--- OUTSIDE RECORDS SUMMARY | 2024-09-03 12:55 | XMS_ITS | Clinical Summary ---
Author Organization [employer] Address [address] [facility] [address] [place] [address] Care Team Providers Care Business Services Vice President Name Role Phone Basilia Colon MD Primary Care Provider + Allergies No known active allergies Medications tiZANidine (Zanaflex) 4 MG capsuleIndicati ons:Acute pain of right shoulder Take 1 capsule (4 mg) by mouth 3 times daily. 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 Resolved Problems Problem Noted Date Diagnosed Date Resolved Date Obesity (BMI 30.0-34.9) 12/27/2022 11/0 05/2023 Assessment & Plan (12/27/2022 3:25 PM EST): Status Post bariatric surgery Significant decrease in BMI Continue Multivitamins Iron + zinc supplementation F/u [facility] obesity clinic F/u in 6 mos Morbid obesity 09/03/2011 12/12/2023 Overview (12/12/2023): Sp Laparoscopic sleeve gastrectomy on 11/04/22 at [facility] Assessment & Plan (06/16/2022 11:20 AM EDT): Discussed re weight reduction options including exercise, life style modifications, diet, referral to military source operations specialist. Discussed re lower calorie intake, increase dietary fiber I gave her information about weight management program for baritric surgery Encounters Date Type Department Care Team Description 08/22/2024 Orders Only [facility] External Provider, [facility] 08/21/2024 Orders Only GENERIC EXTERNAL DATA DEPARTMENT Provider, Generic External Data 08/13/2024 Orders Only GENERIC EXTERNAL DATA DEPARTMENT Provider, Generic External Data 07/18/2024 Orders Only [address] [address] Basilia Colon MD 06/28/2024 Orders Only GENERIC EXTERNAL DATA DEPARTMENT Provider, Generic External Data 06/26/2024 Orders Only GENERIC EXTERNAL DATA DEPARTMENT Provider, Generic External Data 06/22/2024 11:45 AM EDT Office Visit [address] [address] Basilia Colon MD Rheumatoid arthritis involving multiple sites with positive rheumatoid factor ([facility]) (Primary Dx); Benign essential HTN; Dietary counseling; Exercise counseling; Overweight 06/22/2024 Travel 06/21/[address] [address] Basilia Colon MD chart prep 06/15/2024 Patient Outreach [address] [address] Basilia Colon MD Pre-visit Planning (SDOH screening [...] AM EDT Narrative 08/22/2024 12:13 PM EDT [place] [address] [address] Scan Report Signed Patient: Serenity Gómez MR#: [id number] : 1975 Acct:[id number] Age/Sex: 49 / F ADM Date: 08/22/24 Loc: HO.CT Attending Dr: Ted ALLEN Ordering Physician: Ted Beauchamp Date of Service: 08/22/24 Procedure(s): CT abdomen pelvis wo IV con Accession Number(s): [id number] cc: Ted Beauchamp; Basilia Colon MD Report Number: [id number]: Total DLP = 392.00 mGy-cm EXAMINATION: CT [...] 08/22/24 1210 DD/ 1127 TD/TT: 08/22/24 1150 [place] Conservationist: Procedure Note Donotuseinterpreter, Image - 08/22/[address] [address] [address] Scan Report Signed Patient: Serenity Gómez [facility]#: [id number] : 1975Acct:[id number] Age/Sex: 49 / FADM Date: 08/22/24 Loc: HO.CT Attending Dr: Ted ALLEN Ordering Physician: Ted Beauchamp Date of Service: 08/22/24 Procedure(s): CT abdomen pelvis wo IV con Accession Number(s): [id number] cc: Ted Beauchamp; Basilia Colon MD Report Number: [id number]: Total DLP = 392.00 mGy-cm EXAMINATION: CT [...] 08/22/24 1210 DD/ 1127 TD/TT: 08/22/24 1150 [place] Conservationist: [facility] External Provider IMG CT PROCEDURES Final Result * (ABNORMAL) CBC auto differential (08/21/2024 9:32 AM EDT) Only the most recent of2 resultswithin the time period is included. White Blood Count 12.7(H) 4.8 - 10.8 X10*3/uL [facility] Red Blood Count 3.95(L) 4.20 - 5.50 X10*6/uL [facility] Hemoglobin 11.6(L) 12.0 - 16.0 g/dl [facility] Hematocrit 34.8(L) 37.0 - 47.0 % [facility] Mean Corpuscular Volume 88.1 80.0 - 98.0 fL [facility] Mean Corpuscular Hemoglobin 29.4 27.0 - 33.0 pg [facility] Mean Corpuscular HGB Conc 33.3 31.0 - 35.0 g/dl [facility] Red Cell Distribution Width 11.8 11.0 - 16.0 % [facility] Platelet Count 311 160 - 400 X10*3/uL [facility] Mean Platelet Volume 9.4 9.4 - 12.3 fL [facility] Neutrophils Percent Auto 73.1(H) 45 - 73 % [facility] Imm Gran Pct Auto 0.4 0.0 - 0.4 % [facility] Lymphocytes Percent Auto 16.8(L) 20 - 40 % [facility] Monocytes Percent Auto 9.1 2 - 11 % [facility] Eosinophils Percent Auto 0.4 0 - 4 % [facility] Basophils Percent Auto 0.2 0 - 2 % [facility] NRBC Pct Auto 0.0 0.0 - 0.2 /100WBC [facility] Neutrophils Absolute Auto 9.3(H) 2.0 - 8.3 x10*3/uL [facility] Imm Gran Abs Auto 0.05(H) 0.00 - 0.03 X10*3/uL [facility] Lymphocytes Absolute Auto 2.1 1.2 - 4.9 X10*3/uL [facility] Monocytes Absolute Auto 1.2 0.1 - 1.2 X10*3/uL [facility] Eosinophils Absolute Auto 0.1 0.0 - 0.4 X10*3/uL [facility] Basophils Absolute Auto 0.0 0.0 - 0.2 X10*3/uL [facility] NRBC Abs Auto 0.000 0.0 - 0.012 X10*3/uL [facility] 08/21/2024 9:32 AM EDT 08/21/2024 9:32 AM EDT us Generic External Data Provider LAB BLOOD ORDERAB LES Final Result [facility] [address] [place] [phone] * Gram Stain Result (08/13/2024 2:00 PM EDT) 08/13/2024 2:00 PM EDT 08/13/2024 2:20 PM EDT Comment:Abdomen Narrative [facility] - 08/16/2024 8:01 AM EDT Gram [...] Provider HISTORICAL/NON OR DERABLE LABS Final Result [facility] [address] [place] [phone] * BI Mammogram Screening Tomosynthesis Bilateral (07/18/2024 12:10 PM EDT) Anatomical Region Laterality Modality Breast Bilateral Mammography 07/18/2024 12:1 0 PM EDT Narrative 07/27/2024 1:14 PM EDT [address] [place] [address] Mammography Report Signed Patient: Serenity Gómez MR#: [id number] : 1975 Acct:[id number] Age/Sex: 48 / F ADM Date: 07/18/24 Loc: HO.MAMMO Attending Dr: Basliia Colon MD Ordering Physician: Basilia Colon MD Results: 1Ne gative Date of Service: 07/18/24 Follow Up: 1 Year From Orig ina Mammogram Procedure(s): MM tomosynthesis screening BI Accession Number(s): [id number] cc: Basilia Colon MD EXAMINATION: MM SCREENING [...] 07/27/24 1311 DD/ 1210 TD/TT: 07/18/24 1230 Grassland Conservationist: Procedure Note Donotuseinterpreter, Image - 07/27/20[facility] [address] [place] [address] Mammography Report Signed Patient: Serenity Gómez [facility]#: [id number] : 1975Acct:[id number] Age/Sex: 48 / FADM Date: 07/18/24 Loc: HO.MAMMO Attending Dr: Basilia Colon MD Ordering Physician: Basilia Colon MDResults: 1Ne gative Date of Service: 07/18/24Follow Up: 1 Year From Orig inal Mammogram Procedure(s): MM tomosynthesis screening BI Accession Number(s): [id number] cc: Basilia Colon MD EXAMINATION: MM SCREENING [...] 07/27/24 1311 DD/ 1210 TD/TT: 07/18/24 1230 Grassland Conservationist: us Basilia Colon MD IMG BI PROCEDURES Final Result * Gross and Microscopic Level 3 (06/28/2024 12:08 PM EDT) 06/28/2024 12:0 8 PM EDT 06/28/2024 2:20 PM EDT [facility] - 06/29/2024 4:30 PM EDT ----- ------- Name: Serenity Gómez Age/Sex: 48/F : 1975 Unit#: [id number] Attend Dr: Roel Monzon MD Re06/28/24 Status: [facility] Location: [facility] Disch: ----- ------- SPEC : [id number] RECD: 06/28/24-1420 STATUS: ANA MARÍA FERRERA NUM: [id number] AN: 06/28/24-[address]: Roel Monzon MD [...] distinct cysts, lesions or nodules are identified. Accountant Helper sections are submitted in cassettes A1-A3. CEDS IHC S/NG Disclaimer NOTE: Unless otherwise stated, all tissue is formalin-fixed and paraffin-embedded. Some or all of the immunohistochemical tests reported herein may have been developed and their performance characteristics determined by [facility]. They have not been cleared or approved by the U.S. Food and Drug Administration (FDA). However, the FDA has determined that such clearance or approval is not necessary. This laboratory is certified under the Clinical Laboratory Improvement Amendments of 1988 (CLIA) as qualified to perform high complexity clinical laboratory testing. Copies To: Basilia Colon MD [place] [id number] CONTINUED ON NEXT PAGE ----- ------- Name: Serenity Gómez Age/Sex: 48/F : 1975 Unit#: [id number] Attend Dr: Roel Monzon MD Re06/28/24 Status: [facility] Location: [facility] Disch: ----- ------- SPEC : [id number] RECD: 06/28/24142 STATUS: ANA MARÍA HIGHTOWERChristophe NUM: [id number] AN: 06/28/24-[address]: Roel Monzon MD ENTERED: 06/28/24-1899 SP TYPE: Surgical OTHR DR: Basilia Colon MD ORDERED: Gross Micro L3 Copies To: (Continued) Roel Monzon MD [facility] Weight Management Program [address] [place] [phone] ----- ------- Signed (signature on file) Guillermina Wakefield MD 06/29/24 1630 ----- ------- END OF REPORT Generic External Data Provider LAB CYTOLOGY NATHALIA GIBBONS Final Result Performing Organization Address [facility] Co de Phone Number [facility] [address] [place] [phone] * Type and screen (06/26/2024 10:45 AM EDT) Pathologist [facility] Blood Type AP [facility] Antibody Screen NEGATIVE [facility] 06/26/2024 10:4 5 AM EDT 06/26/2024 11:00 AM EDT Narrative [facility] - 06/26/2024 11:37 AM EDT witnessed by SmithING:Call Blood Bank (ext. [phone]) to band patient on admission.Type and Screen in effect until 2300 on 06-28-2024 Generic External Data Provider LAB BLOOD BANK TE ST ORDERABLES Final Result Performing Organization Address [facility] Co de Phone Number [facility] [address] [place] [address] [phone] * Partial Thromboplastin Time, Activated (APTT) (06/05/2024 11:20 AM EDT) Partial Thromboplastin Time 29.3 26.0 - 36.8 SEC [facility] Comment:For information rega rding the monitoring of direct thrombininhibitors, please refer to Pharmacy. 06/05/2024 11:2 0 AM EDT 06/05/2024 11:20 AM EDT Generic External Data Provider LAB BLOOD ORDERAB LES Final Result Performing Organization Address [facility]/ZIP Co de Phone Number [facility] [address] [place] [phone] * Prothrombin Time-INR (06/05/2024 11:20 AM EDT) Prothrombin Time 11.3 10.9 - 12.4 SEC [facility] INTERNATIONAL NORM RATIO 1.0 0.9 - 1.1 [facility] Comment:INTERNATIONAL NORMAL IZED RATIO (INR) REFERENCE [...] ORDERAB LES Final Result Performing Organization Address [facility] Co de Phone Number [facility] [address] [place] [phone] * (ABNORMAL) Comprehensive Metabolic Panel (06/05/2024 11:20 AM EDT) Pathologist [facility] Sodium 140 135 - 145 mmol/L [facility] Potassium 4.5 3.3 - 5.1 mmol/L [facility] Chloride 106 96 - 108 mmol/L [facility] Carbon Dioxide 30(H) 22 - 29 mmol/L [facility] Anion Gap 9(L) 12 - 20 [facility] Urea Nitrogen (BUN) 19(H) 9 - 16 mg/dL [facility] Creatinine, Serum 0.67 0.5 - 1.4 mg/dL [facility] Creatinine Clr Calc Pharmacy TNP [facility] Comment:Unable to calculate eCrCL; all parameters not provided. Estimated Glomerular Filt Rate >60 [facility] Comment:Chronic Kidney Disea se: Estimated GFR < 60 mL/min/1.12e4Zdssrb Kidney Disease: Estimated GFR < 15 mL/min/1.73m2 Glucose 89 60 - 115 mg/dL [facility] Calcium 9.1 8.4 - 10.2 mg/dL [facility] Bilirubin, Total 0.9 0.0 - 1.0 mg/dL [facility] Aspartate Amino Transferase 21 5 - 31 U/L [facility] Alanine Aminotransferase 11 0 - 31 U/L [facility] Total Protein 7.8 6.5 - 8.0 g/dL [facility] Albumin Level 4.2 3.5 - 5.0 g/dL [facility] Alkaline Phosphatase 71 39 - 117 U/L [facility] 06/05/2024 11:2 0 AM EDT 06/05/2024 11:20 AM EDT us Generic External Data Provider LAB BLOOD ORDERAB LES Final Result Performing Organization Address City/State/[facility] Co de Phone Number [facility] [address] [place] [phone] * (ABNORMAL) Lipid Panel, Standard (02/24/2024 8:29 AM EST) Triglycerides 61 <150 mg/dL [facility] Comment:Desirable Triglyceri de: less than 150 mg/dLBorderline High Triglyceride 150-199 mg/dLHigh Triglyceride: 200-499 mg/dLVery High Triglyceride: greater than or equal to 5OO mg/dL Cholesterol 187 <200 mg/dL [facility] Comment:Desirable Cholestero l: less than 200 mg/dLBorderline High Cholesterol: 200-239 mg/dLHigh Cholesterol: greater than 239 mg/dL LDL Cholesterol Calculated 110(H) <100 mg/dL [facility] Comment:Desirable LDL: less than 100 mg/dLNear Optimal/Above Optimal LDL: 110- 129 mg/dLBorderline High LDL: 130-159 mg/dLHigh LDL: 160-189 mg/dLVery High LDL: greater than or equal to 190 mg/dL HDL Cholesterol 65 >40 mg/dL [facility] Comment:Desirable HDL: great er than 40 mg/dL Note: This HDL assay may give artificially low results in patients with liver disease. 02/24/2024 8:29 AM EST 02/24/2024 8:29 AM EST us Generic External Data Provider LAB BLOOD ORDERAB LES Final Result Performing Organization Address City/State/[facility] Co de Phone Number [facility] [address] [place] [phone] * Pap Smear (12/29/2022 2:49 PM EST) 12/29/2022 2:49 PM EST 01/03/2023 7:00 AM EST Narrative [facility] - 01/13/2023 4:11 PM EST ----- ------- Name: Serenity Gómez Age/Sex: 47/F : 1975 Unit#: [id number] Attend Dr: Chalino Benton MD Re12/29/22 Status: DEP REF Location: HO.LNP Disch: ----- ------- SPEC : [id number] RECD: 01/03/23 STATUS: ANA MARÍA FERRERA NUM: [id number] AN: 12/29/22-1448 [facility] DR: Chalino Benton MD ENTERED: [...] 59, 66, 68) HPV testing performed by [facility], [place], [place]. See reference laboratory portion of the EMR for entire report. Clinical Information LMP: Postmenopausal Previous PAP test: 2021, ASCUS, HPV+ Material Received ThinPrep-Cervical Copies To: Basilia Colon MD [address] [place] [phone] Chalino Benton MD [address] [place] [address] [address] [place] [phone] ----- ------- Signed (signature on file) MANUEL Uriarte (ASCP) 01/13/23 1611 ----- ------- END OF REPORT us Generic External Data Provider LAB CYTOLOGY ORDE RABLES Final Result [facility] [address] [place] [address] [phone] * HPV E6/E7 RFLX OLGA 16 18/45 (11/11/2021 3:37 PM EDT) HPV mRNA E6/E7 rflx Not Detected Not Detected [facility] Comment: Methodology: Chore Tender-Mediated Amplification This assay detects E6/E7 viral messenger RNA (mRNA) from 14 high-risk HPV types (16,18,31,33,35,39,45,51,52,56,58,59,66,68). Cervical sources are required for HPV testing. If a vaginal source from a patient who has had a total hysterectomy with removal of cervix was submitted, please contact the testing laboratory for alternative testing options. For additional information, please refer to http://education.Itandi/faq/GDI745s6 (This link if provided for information/ educational purposes only.) THIS TEST WAS PERFORMED AT: [facility] [address] [place] [address] FLOOR,[place] [address] ELIZABETH ANDRES MD 11/11/2021 3:37 PM EDT Chalino Benton MD HISTORICAL/NON ORDERABLE LABS Fi nal Result Performing Organization Address City/[facility]/ZIP Co de Phone Number [facility] * Hm Colonoscopy (07/08/2021 9:47 AM EDT) Historical Provider HEALTH MAINTENANCE Final Result * HIV 1/2 ANTIGEN/ANTIBODY,FOURTH GENERATION W/RFL (10/17/2020 1:05 PM EDT) HIV-1/2 ANTIGEN AND ANTIBODIES, 4TH GENERATION W/ REFLEX NON-REACT ELENA NON-REACT ELENA [facility] Comment: HIV-1 antigen and HIV-1/HIV-2 [...] purpose. For additional information please refer to http://[employer].Itandi/faq/DGA962 (This link is being provided for informational/ educational purposes only.) The performance of this assay has not been clinically validated in patients less than 2 years old. 10/17/2020 1:05 PM EDT Basilia Colon MD LAB BLOOD ORDERABLES Fin al Result [facility] [address] from Last 3 Months or Most Recently Relevant to Health Maintenance Insurance [facility] Care Teams Business Services Vice President Relationship Specialty Start Date End Date Basilia Colon MD [address] [place] [phone] PCP - General Family Medicine 12/27/17 [place] [facility] 06/29/24
--- OUTSIDE RECORDS SUMMARY | 2024-09-03 12:55 | XMS_ITS | Clinical Summary ---
Author Organization [facility] Address [address] [place] [address] Care Team Providers Care Nurse Researcher Name Role Phone Unavailable Primary Care Provider [...] 4:20 PM EDT Office Visit [facility] [address] [place] [phone] Thaddeus Wright, [facility] [address] [place] [address] Health Maintenance Due Date Last Done Comments [...] 08/01/2023 Imm-Zoster, Recombinant (1 of 2) 08/01/2023 [id number] (1 - 2023- season) 2023 Alcohol and [...] Health Maintenance Insurance HEALTH SAFETY [facility]
== END 2024-09-03 12:15 | disposition home or self-care (01) ==
LOC: HO.HBS 11:39
PROVIDERS: PCP Internal Medicine; Visit Provider Physician Assistant Surgical
DX: T81.49XA Infection following a procedure, other surgical site, initial encounter (principal)
CPT/HCPCS: 99024

== ENCOUNTER → 2024-09-03 11:38 | Outpatient (BNVA) | payer OTHER, SELFPAY | PROVIDERS: PCP Internal Medicine; Visit Provider Physician Assistant Surgical | DX: T81.49XA Infection following a procedure, other surgical site, initial encounter (principal) | CPT/HCPCS: 99212 ==

== ENCOUNTER 2024-09-04 12:56 | Outpatient (AMB) | payer OTHER, SELFPAY ==
--- NOTE | 2024-09-04 13:00 | MHC.OFFVISWM ---
VS Expanded 09/04/24 13:26 BP 119/56 L Blood Pressure Location Rt brachial Blood Pressure Position Sitting Pulse 74 Pulse Source Pulse Oximeter Temp 97.5 F Temperature Source Temporal Artery Scan Pulse Oximetry 98 Oxygen Delivery Method Room Air Height 4 ft 11 in Weight 131 lb BMI 26.5 Body Fat % 30.6 Body Fat Mass 40.2 Fat Free Mass 90.8 Visceral Fat Rating 6.0 Body Water % 49.3 Body Water Mass 64.6 Muscle Mass/Score 86.2 Basal Metabolic Rate/Score 1,234 Intake Visit Reasons: OV Panniculectomy 06/28/24 Allergies No Known Allergies Allergy (Verified 08/31/24 14:01) HPI Comments Details: 49-year-old female returns to the office today in follow-up. She is status post panniculectomy on 06/28/2024. She developed postoperative wound abscess requiring drainage. The incision has dehisced along the right lateral transverse incision and midline transverse incision. She remains on Bactrim DS 1 tab p.o. b.i.d., today is day for MRSA culture positive bacteria. This has been packed with iodoform quarter-inch packing on a daily basis. She reports overall continued subjective feelings of improvement. No fevers or chills. Less drainage, although continued minor purulence from the midline. No drainage from the right opening She has improved significantly since initiating this treatment. She continues on her meal plan: Orgain 1/2 scoop x 3 fit crunch bar x 1 meal w 4 forks protein and 4 forks veg PFSH Medical History (Updated 08/20/24 @ 13:35 by TIFFANY Fox) Excess skin History of vertigo Nephrolithiasis GERD (gastroesophageal reflux disease) Anxiety Depression BMI 39.0-39.9,adult Morbid obesity Right shoulder injury Left lateral epicondylitis Right shoulder tendonitis Carpal tunnel syndrome on both sides Normal vulvar exam Hemorrhoids Diverticulosis Tubular adenoma Encounter for screening colonoscopy Postmenopausal bleeding Well woman exam BENITO III (cervical intraepithelial neoplasia grade III) with severe dysplasia Carpal tunnel syndrome Acute arthritis Seasonal allergic rhinitis Surgical History S/P panniculectomy 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) Hx of colonoscopy (07/2021) Tubal ligation status Family History Mother HTN (hypertension) A-fib Arthritis Father Diabetes HTN (hypertension) Sister Lupus Social History Household Members: Spouse Housing: House Are you a primary career services manager to a significant other at home: No Do you presently have visiting nurse or other home services: No Alcohol intake: current Alcohol intake frequency: does not drink Patient Tobacco Use Status: Never used Tobacco service: No Current occupational status: employed 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 There is hypergranulation tissue. No erythema or warmth noted. Midline dehiscence packed with quarter-inch iodoform packing after being flushed with 50% hydrogen peroxide and 50% normal saline. Healthy beefy granulation tissue to the right lateral dehiscence without tunneling or drainage Assessment & Plan Assessment & Plan (1) Post-operative wound abscess: Code(s): T81.49XA - Infection following a procedure, other surgical site, initial encounter Category: Medical Plan: Today is day 19 of 20 of Bactrim. She does continue with some minimal purulence from the midline. No further drainage from the right lateral dehisced area. Consideration for an additional 8 days of Bactrim to complete a 28 day course. Determination tomorrow. Continue flushing with hydrogen peroxide/normal saline and packing with quarter-inch iodoform gauze. Continue meal plan as she is doing. Follow-up tomorrow
[2024-09-04 13:26] VITALS: BP 119/56; PULSE 74; TEMP 36.4; O2SAT 98; BMI 26.5
--- OUTSIDE RECORDS SUMMARY | 2024-09-04 13:42 | XMS_ITS | Clinical Summary ---
Author Organization [facility] Address [address] [place] [address] Care Team Providers Care Sprinkler Inspector Name Role Phone Unavailable Primary Care Provider [...] Upcoming Encounters Date Type Department Care Team ([facility] st Contact Info) Description 09/11/2024 4:20 PM EDT Office Visit [facility] [address] [place] [id number] Thaddeus Wright, [facility] [address] [place] [address] Health Maintenance Due Date Last Done Comments [...] 08/01/2023 Imm-Zoster, Recombinant (1 of 2) 08/01/2023 [id number] (1 - 2023- season) 2023 Alcohol and [...] Relevant to Health Maintenance Insurance [employer]Y [facility]
--- OUTSIDE RECORDS SUMMARY | 2024-09-04 13:42 | XMS_ITS | Clinical Summary ---
Author Organization [facility] ity Address [address] [place] [address] Care Team Providers Care Shell Sieve Operator Name Role Phone Unavailable Primary Care [...]
== END 2024-09-04 13:31 | disposition home or self-care (01) ==
LOC: HO.HBS 12:56
PROVIDERS: PCP Internal Medicine; Visit Provider Physician Assistant Surgical
DX: T81.49XA Infection following a procedure, other surgical site, initial encounter (principal)
CPT/HCPCS: 99024

== ENCOUNTER → 2024-09-04 12:56 | Outpatient (BNVA) | payer OTHER, SELFPAY | PROVIDERS: PCP Internal Medicine; Visit Provider Physician Assistant Surgical | DX: T81.49XA Infection following a procedure, other surgical site, initial encounter (principal) | CPT/HCPCS: 99212 ==

== ENCOUNTER 2024-09-05 14:48 | Outpatient (AMB) | payer OTHER, SELFPAY ==
[2024-09-05 15:22] VITALS: BP 113/59; PULSE 74; TEMP 36.4; O2SAT 95; BMI 26.4
--- NOTE | 2024-09-05 15:22 | A.OFFVIS_ITS ---
VS Expanded 09/05/24 15:22 BP 113/59 L Blood Pressure Location Rt brachial Blood Pressure Position Sitting Pulse 74 Pulse Source Pulse Oximeter Temp 97.6 F Temperature Source Temporal Artery Scan Pulse Oximetry 95 Oxygen Delivery Method Room Air Height 4 ft 11 in Weight 130 lb 9.6 oz BMI 26.4 Body Fat % 28.7 Body Fat Mass 37.4 Fat Free Mass 93.0 Visceral Fat Rating 6.0 Body Water % 50.7 Body Water Mass 66.2 Muscle Mass/Score 88.2 Basal Metabolic Rate/Score 1,255 Intake Visit Reasons: OV Panniculectomy 06/28/24 Allergies No Known Allergies Allergy (Verified 08/31/24 14:01) HPI Comments Details: Patient is a 49-year-old female who returns to the office today in follow-up. She is status post panniculectomy on 06/28/2024. She developed postoperative abscess with subsequent dehiscence along the right lateral border and anterior. She has completed 20 days of Bactrim for culture confirmed MRSA. She is having much less purulent drainage, no further drainage from the right side. She continues to follow her meal plan as directed by Dr. Monzon as well as wound care. [facility] Medical History (Updated 08/20/24 @ 13:35 by TIFFANY Fox) Excess skin History of vertigo Nephrolithiasis GERD (gastroesophageal reflux disease) Anxiety Depression BMI 39.0-39.9,adult Morbid obesity Right shoulder injury Left lateral epicondylitis Right shoulder tendonitis Carpal tunnel syndrome on both sides Normal vulvar exam Hemorrhoids Diverticulosis Tubular adenoma Encounter for screening colonoscopy Postmenopausal bleeding Well woman exam BENITO III (cervical intraepithelial neoplasia grade III) with severe dysplasia Carpal tunnel syndrome Acute arthritis Seasonal allergic rhinitis Surgical History S/P panniculectomy 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) Hx of colonoscopy (07/2021) Tubal ligation status Family History Mother HTN (hypertension) A-fib Arthritis Father Diabetes HTN (hypertension) Sister Lupus Social History Household Members: Spouse Housing: House Are you a primary career development engineer to a significant other at home: No Do you presently have visiting nurse or other home services: No Alcohol intake: current Alcohol intake frequency: does not drink Patient Tobacco Use Status: Never used Tobacco service: No Current occupational status: employed 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 This area was flushed with 50% saline 50% hydrogen peroxide and packed with quarter-inch iodoform packing. Covered with dry clean dressing. Assessment & Plan Assessment & Plan (1) Post-operative wound abscess: Code(s): T81.49XA - Infection following a procedure, other surgical site, initial encounter Category: Medical Plan: Prescription written for an additional 8 days of Bactrim DS 1 tab p.o. b.i.d. to complete 28 day course. Continue packing, continue meal plan. Return to clinic tomorrow Medications: Changed From sulfamethoxazole-trimethoprim 800-160 mg (Bactrim DS) Start upon completion of the 1st prescription of this antibiotic to total a 20 day course 1 tab PO BID 10 days 20 tabs 0RF To sulfamethoxazole-trimethoprim 800-160 mg (Bactrim DS) 1 tab PO BID 16 tabs 0RF 8 days
--- OUTSIDE RECORDS SUMMARY | 2024-09-05 15:29 | XMS_ITS | Clinical Summary ---
Author Organization [facility] ity Address [address] [place] [address] Care Team Providers Care Tool Salvage Worker Name Role Phone Unavailable Primary Care [...]
--- OUTSIDE RECORDS SUMMARY | 2024-09-05 15:29 | XMS_ITS | Clinical Summary ---
Author Organization [facility] Address [address] [place] [address] Care Team Providers Care Basketball Coach Name Role Phone Unavailable Primary Care Provider [...] Upcoming Encounters Date Type Department Care Team ([facility] st Contact Info) Description 09/11/2024 4:20 PM EDT Office Visit [facility] [address] [place] [phone] Thaddeus Wright, [facility] [address] [place] [address] Health Maintenance Due Date Last Done Comments [...] 08/01/2023 Imm-Zoster, Recombinant (1 of 2) 08/01/2023 [id number] (1 - 2023- season) 2023 Alcohol and [...] Relevant to Health Maintenance Insurance HEALTH SAFETY [facility]
--- OUTSIDE RECORDS SUMMARY | 2024-09-05 15:29 | XMS_ITS | Clinical Summary ---
Author Organization [employer] Address [address] [facility] [address] [place] [address] Care Team Providers Care Rn Office Name Role Phone Basilia Colon MD Primary Care Provider + Allergies No known active allergies Medications tiZANidine (Zanaflex) 4 MG capsuleIndicati ons:Acute pain of right shoulder Take 1 capsule (4 mg) by mouth 3 times daily. 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 Resolved Problems Problem Noted Date Diagnosed Date Resolved Date Obesity (BMI 30.0-34.9) 12/27/2022 11/0 05/2023 Assessment & Plan (12/27/2022 3:25 PM EST): Status Post bariatric surgery Significant decrease in BMI Continue Multivitamins Iron + zinc supplementation F/u [facility] [place] F/u in 6 mos Morbid obesity 09/03/2011 12/12/2023 Overview (12/12/2023): Sp Laparoscopic sleeve [place] 11[place]04/[place] [facility] Assessment & Plan (06/16/2022 11:20 AM EDT): Discussed re weight reduction options including exercise, life style modifications, diet, referral to mirror specialist. Discussed re lower calorie intake, increase dietary fiber I gave her information about weight management program for baritric surgery Encounters Date Type Department Care Team Description 08/22/2024 Orders Only [facility] External Provider, [facility] 08/21/2024 Orders Only GENERIC EXTERNAL DATA DEPARTMENT Provider, Generic External Data 08/13/2024 Orders Only GENERIC EXTERNAL DATA DEPARTMENT Provider, Generic External Data 07/18/2024 Orders Only [address] [address] Basilia Colon MD 06/28/2024 Orders Only GENERIC EXTERNAL DATA DEPARTMENT Provider, Generic External Data 06/26/2024 Orders Only GENERIC EXTERNAL DATA DEPARTMENT Provider, Generic External Data 06/22/2024 11:45 AM EDT Office Visit [address] [address] Basilia Colon MD Rheumatoid arthritis involving multiple sites with positive rheumatoid factor ([facility]) (Primary Dx); Benign essential HTN; Dietary counseling; Exercise counseling; Overweight 06/22/2024 Travel 06/21/[address] [address] Basilia Colon MD chart prep 06/15/2024 Patient Outreach [address] [address] Basilia Colon MD Pre-visit Planning (SDOH screening positive and tobacco screening negative) from Last 3 Months Immunizations Immunization Administration [...] AND SCREEN Routine 06/26/2024 10:45 AM EDT LIPID PANEL, STANDARD Routine 02/24/2024 [...] AM EDT Narrative 08/22/2024 12:13 PM EDT [address] [address] [address] Scan Report Signed Patient: Serenity Gómez MR#: [id number] : 1975 Acct:[id number] Age/Sex: 49 / F ADM Date: 08/22/24 Loc: HO.CT Attending Dr: Ted ALLEN Ordering Physician: Ted Beauchamp Date of Service: 08/22/24 Procedure(s): CT abdomen pelvis wo IV con Accession Number(s): [id number] cc: Ted Beauchamp; Basilia Colon MD Report Number: [id number]: Total DLP = 392.00 mGy-cm EXAMINATION: CT [...] 08/22/24 1210 DD/ 1127 TD/TT: 08/22/24 1150 Milling Supervisor: Procedure Note Donotuseinterpreter, Image - 08/22/[address] [place] [address] [address] Scan Report Signed Patient: Serenity Gómez [facility]#: [id number] : 1975Acct:[id number] Age/Sex: 49 / FADM Date: 08/22/24 Loc: HO.CT Attending Dr: Ted ALLEN Ordering Physician: Ted Beauchamp Date of Service: 08/22/24 Procedure(s): CT abdomen pelvis wo IV con Accession Number(s): [id number] cc: Ted Beauchamp; Basilia Colon MD Report Number: [id number]: Total DLP = 392.00 mGy-cm EXAMINATION: CT [...] 08/22/24 1210 DD/ 1127 TD/TT: 08/22/24 1150 Milling Supervisor: [facility] External Provider IMG CT PROCEDURES Final Result * (ABNORMAL) CBC auto differential (08/21/2024 9:32 AM EDT) White Blood Count 12.7(H) 4.8 - 10.8 X10*3/uL [facility] Red Blood Count 3.95(L) 4.20 - 5.50 X10*6/uL [facility] Hemoglobin 11.6(L) 12.0 - 16.0 g/dl [facility] Hematocrit 34.8(L) 37.0 - 47.0 % [facility] Mean Corpuscular Volume 88.1 80.0 - 98.0 fL [facility] Mean Corpuscular Hemoglobin 29.4 27.0 - 33.0 pg [facility] Mean Corpuscular HGB Conc 33.3 31.0 - 35.0 g/dl [facility] Red Cell Distribution Width 11.8 11.0 - 16.0 % [facility] Platelet Count 311 160 - 400 X10*3/uL [facility] Mean Platelet Volume 9.4 9.4 - 12.3 fL [facility] Neutrophils Percent Auto 73.1(H) 45 - 73 % [facility] Imm Gran Pct Auto 0.4 0.0 - 0.4 % [facility] Lymphocytes Percent Auto 16.8(L) 20 - 40 % [facility] Monocytes Percent Auto 9.1 2 - 11 % [facility] Eosinophils Percent Auto 0.4 0 - 4 % [facility] Basophils Percent Auto 0.2 0 - 2 % [facility] NRBC Pct Auto 0.0 0.0 - 0.2 /100WBC [facility] Neutrophils Absolute Auto 9.3(H) 2.0 - 8.3 x10*3/uL [facility] Imm Gran Abs Auto 0.05(H) 0.00 - 0.03 X10*3/uL [facility] Lymphocytes Absolute Auto 2.1 1.2 - 4.9 X10*3/uL [facility] Monocytes Absolute Auto 1.2 0.1 - 1.2 X10*3/uL [facility] Eosinophils Absolute Auto 0.1 0.0 - 0.4 X10*3/uL [facility] Basophils Absolute Auto 0.0 0.0 - 0.2 X10*3/uL [facility] NRBC Abs Auto 0.000 0.0 - 0.012 X10*3/uL [facility] 08/21/2024 9:32 AM EDT 08/21/2024 9:32 AM EDT us Generic External Data Provider LAB BLOOD ORDERAB LES Final Result [facility] [address] [place] [phone] * Gram Stain Result (08/13/2024 2:00 PM EDT) 08/13/2024 2:00 PM EDT 08/13/2024 2:20 PM EDT Comment:Abdomen Narrative [facility] - 08/16/2024 8:01 AM EDT Gram [...] Provider HISTORICAL/NON OR DERABLE LABS Final Result [facility] [address] [facility] [place] [address] [phone] * BI Mammogram Screening Tomosynthesis Bilateral (07/18/2024 12:10 PM EDT) Anatomical Region Laterality Modality Breast Bilateral Mammography 07/18/2024 12:1 0 PM EDT Narrative 07/27/2024 1:14 PM EDT [address] [place] [address] Mammography Report Signed Patient: Serenity Gómez MR#: [id number] : 1975 Acct:[id number] Age/Sex: 48 / F ADM Date: 07/18/24 Loc: HO.MAMMO Attending Dr: Basilia Colon MD Ordering Physician: Basilia Colon MD Results: 1Ne gative Date of Service: 07/18/24 Follow Up: 1 Year From Orig ina Mammogram Procedure(s): MM tomosynthesis screening BI Accession Number(s): [id number] cc: Basilia Colon MD EXAMINATION: MM SCREENING [...] 07/27/24 1311 DD/ 1210 TD/TT: 07/18/24 1230 Milling Supervisor: Procedure Note Donotuseinterpreter, Image - 07/27/20[facility] [address] [place], [place] [address] Mammography Report Signed Patient: Serenity Gómez MMR#: [id number] : 1975Acct:[id number] Age/Sex: 48 / FADM Date: 07/18/24 Loc: HO.MAMMO Attending Dr: Basilia Colon MD Ordering Physician: Basilia Colon MDResults: 1Ne gative Date of Service: 07/18/24Follow Up: 1 Year From Orig inal Mammogram Procedure(s): MM tomosynthesis screening BI Accession Number(s): [id number] cc: Basilia Colon MD EXAMINATION: MM SCREENING [...] 07/27/24 1311 DD/ 1210 TD/TT: 07/18/24 1230 Milling Supervisor: us Basilia Colon MD IMG BI PROCEDURES Final Result * Gross and Microscopic Level 3 (06/28/2024 12:08 PM EDT) 06/28/2024 12:0 8 PM EDT 06/28/2024 2:20 PM EDT [facility] - 06/29/2024 4:30 PM EDT ----- ------- Name: Serenity Gómez Age/Sex: 48/F : 1975 Unit#: [id number] Attend Dr: Roel Monzon MD Re06/28/24 Status: [facility] [place] Location: [facility] Disch: ----- ------- SPEC : [id number] RECD: 06/28/24 STATUS: ANA MARÍA FERRERA NUM: [id number] AN: 06/28/[address]: Roel Monzon MD [...] distinct cysts, lesions or nodules are identified. Planting Supervisor sections are submitted in cassettes A1-A3. CEDS IHC S/NG Disclaimer NOTE: Unless otherwise stated, all tissue is formalin-fixed and paraffin-embedded. Some or all of the immunohistochemical tests reported herein may have been developed and their performance characteristics determined by [facility]. They have not been cleared or approved by the U.S. Food and Drug Administration (FDA). However, the FDA has determined that such clearance or approval is not necessary. This laboratory is certified under the Clinical Laboratory Improvement Amendments of 1988 (CLIA) as qualified to perform high complexity clinical laboratory testing. Copies To: Basilia Colon MD [address] [address] CONTINUED ON NEXT PAGE ----- ------- Name: Serenity Gómez Age/Sex: 48/F : 1975 Unit#: [id number] Attend Dr: Roel Monzon MD Re06/28/24 Status: [facility] [place] Location: [facility] Disch: ----- ------- SPEC : [id number] RECD: 06/28/24-1420 STATUS: ANA MARÍA FERRERA NUM: [id number] AN: 06/28/24-[address]: Roel Monzon MD ENTERED: 06/28/24143 SP TYPE: Surgical OTHR DR: Basilia Colon MD ORDERED: Gross Micro L3 Copies To: (Continued) Roel Monzon MD [facility] [address] [place] [phone] ----- ------- Signed (signature on file) Guillermina Wakefield MD 06/29/24 5050 ----- ------- END OF REPORT Generic External Data Provider LAB CYTOLOGY NATHALIA GIBBONS Final Result Performing Organization Address City/[facility]/ZIP Co de Phone Number [facility] [address] [place] [address] [phone] * Type and screen (06/26/2024 10:45 AM EDT) Blood Type AP [facility] Antibody Screen NEGATIVE [facility] 06/26/2024 10:4 5 AM EDT 06/26/2024 11:00 AM EDT Narrative [facility] - 06/26/2024 11:37 AM EDT witnessed by MarciaURSING:Call Blood Bank (ext. [phone]) to band patient on admission.Type and Screen in effect until 2300 on 06-28-2024 us Generic External Data Provider LAB BLOOD BANK TE ST ORDERABLES Final Result Performing Organization Address [facility] Co de Phone Number [facility] [address] [place] [address] [phone] * (ABNORMAL) Lipid Panel, Standard (02/24/2024 8:29 AM EST) Triglycerides 61 <150 mg/dL [facility] Comment:Desirable Triglyceri de: less than 150 mg/dLBorderline High Triglyceride 150-199 mg/dLHigh Triglyceride: 200-499 mg/dLVery High Triglyceride: greater than or equal to 5OO mg/dL Cholesterol 187 <200 mg/dL [facility] Comment:Desirable Cholestero l: less than 200 mg/dLBorderline High Cholesterol: 200-239 mg/dLHigh Cholesterol: greater than 239 mg/dL LDL Cholesterol Calculated 110(H) <100 mg/dL [facility] Comment:Desirable LDL: less than 100 mg/dLNear Optimal/Above Optimal LDL: 110- 129 mg/dLBorderline High LDL: 130-159 mg/dLHigh LDL: 160-189 mg/dLVery High LDL: greater than or equal to 190 mg/dL HDL Cholesterol 65 >40 mg/dL [facility] Comment:Desirable HDL: great er than 40 mg/dL Note: This HDL assay may give artificially low results in patients with liver disease. 02/24/2024 8:29 AM EST 02/24/2024 8:29 AM EST us Generic External Data Provider LAB BLOOD ORDERAB LES Final Result [facility] [address] [place] [phone] * Pap Smear (12/29/2022 2:49 PM EST) 12/29/2022 2:49 PM EST 01/03/2023 7:00 AM EST Narrative [facility] - 01/13/2023 4:11 PM EST ----- ------- Name: Serenity Gómez Age/Sex: 47/F : 1975 Unit#: [id number] Attend Dr: Chalino Benton MD Re12/29/22 Status: DEP REF Location: [facility] Disch: ----- ------- SPEC : [id number] RECD: 01/03/23 STATUS: ANA MARÍA FERRERA NUM: [id number] AN: 12/29/22-[address] [facility] [address]: Chalino Benton MD ENTERED: 01/04/23 SP [...] 59, 66, 68) HPV testing performed by [facility], [place], [place]. See reference laboratory portion of the EMR for entire report. Clinical Information LMP: Postmenopausal Previous PAP test: 2021, ASCUS, HPV+ Material Received ThinPrep-Cervical Copies To: Basilia Colon MD [address] [place] [address] Chalino Benton MD [address] [place] [address] Dr. T[place] [address] [place] [phone] ----- ------- Signed (signature on file) MANUEL Uriarte (ASCP) 01/13/23 1611 ----- ------- END OF REPORT us Generic External Data Provider LAB CYTOLOGY NATHALIA GIBBONS Final Result [facility] [address] [place] [address] [phone] * HPV E6/E7 RFLX OLGA 16 18/45 (11/11/2021 3:37 PM EDT) HPV mRNA E6/E7 rflx Not Detected Not Detected [facility] Comment: Methodology: Atg Java Developer-Mediated Amplification This assay detects E6/E7 viral messenger RNA (mRNA) from 14 high-risk HPV types (16,18,31,33,35,39,45,51,52,56,58,59,66,68). Cervical sources are required for HPV testing. If a vaginal source from a patient who has had a total hysterectomy with removal of cervix was submitted, please contact the testing laboratory for alternative testing options. For additional information, please refer to http://education.Ksplice/faq/MRQ851e3 (This link if provided for information/ educational purposes only.) THIS TEST WAS PERFORMED AT: [facility] [address] [place] [address],[place] [address] ELIZABETH ANDRES MD 11/11/2021 3:37 PM EDT Chalino Benton MD HISTORICAL/NON ORDERABLE LABS Fi nal Result [facility] * Hm Colonoscopy (07/08/2021 9:47 AM EDT) Historical Provider HEALTH MAINTENANCE Final Result * HIV 1/2 ANTIGEN/ANTIBODY,FOURTH GENERATION W/RFL (10/17/2020 1:05 PM EDT) HIV-1/2 ANTIGEN AND ANTIBODIES, 4TH GENERATION W/ REFLEX NON-REACT [facility] NON-REACT [facility] Comment: HIV-1 antigen and [...] purpose. For additional information please refer to http://education.MaxLinear.Twistle/faq/CEQ742 (This link is being provided for informational/ educational purposes only.) The performance of this assay has not been clinically validated in patients less than 2 years old. 10/17/2020 1:05 PM EDT us Basilia Colon MD LAB BLOOD ORDERABLES Fin al Result [facility] [address] from Last 3 Months or Most Recently Relevant to Health Maintenance Insurance HS [employer] [facility] Care Teams Rn Office Relationship Specialty Start Date End Date Basilia Colon MD [address] [place] [phone] PCP - General Family Medicine [facility]
== END 2024-09-05 15:30 | disposition home or self-care (01) ==
LOC: HO.HBS 14:49
PROVIDERS: PCP Internal Medicine; Visit Provider Physician Assistant Surgical
DX: T81.49XA Infection following a procedure, other surgical site, initial encounter (principal)
CPT/HCPCS: 99024

== ENCOUNTER → 2024-09-05 14:48 | Outpatient (BNVA) | payer OTHER, SELFPAY | PROVIDERS: PCP Internal Medicine; Visit Provider Physician Assistant Surgical | DX: T81.49XA Infection following a procedure, other surgical site, initial encounter (principal) | CPT/HCPCS: 99212 ==

== ENCOUNTER 2024-09-06 11:28 | Outpatient (AMB) | payer OTHER, SELFPAY ==
--- NOTE | 2024-09-06 11:33 | A.OFFVIS_ITS ---
VS Expanded 09/06/24 12:00 BP 131/59 L Blood Pressure Location Rt brachial Blood Pressure Position Sitting Pulse 66 Pulse Source Pulse Oximeter Temp 96.8 F Temperature Source Temporal Artery Scan Pulse Oximetry 100 Oxygen Delivery Method Room Air Height 4 ft 11 in Weight 129 lb 12.8 oz BMI 26.2 Body Fat % 31.8 Body Fat Mass 41.2 Fat Free Mass 88.4 Visceral Fat Rating 6.0 Body Water % 48.5 Body Water Mass 62.8 Muscle Mass/Score 84.0 Basal Metabolic Rate/Score 1,983 Intake Visit Reasons: OV Panniculectomy 06/28/24 Allergies No Known Allergies Allergy (Verified 08/31/24 14:01) HPI Comments Details: Patient is a 49-year-old female who returns to the office today in follow-up. She is status post panniculectomy on 06/28/2024. She developed postoperative abscess with subsequent dehiscence along the right lateral border and anterior. Today is day 21 of 28 of Bactrim for culture confirmed MRSA. She is having much less purulent drainage, no further drainage from the right side. She continues to follow her meal plan as directed by Dr. Monzon as well as wound care. She feels well. meal plan: Orgain 1/2 scoop x 3 fit crunch bar x 1 meal w 4 forks protein and 4 forks veg PFSH Medical History (Updated 08/20/24 @ 13:35 by TIFFANY Fox) Excess skin History of vertigo Nephrolithiasis GERD (gastroesophageal reflux disease) Anxiety Depression BMI 39.0-39.9,adult Morbid obesity Right shoulder injury Left lateral epicondylitis Right shoulder tendonitis Carpal tunnel syndrome on both sides Normal vulvar exam Hemorrhoids Diverticulosis Tubular adenoma Encounter for screening colonoscopy Postmenopausal bleeding Well woman exam BENITO III (cervical intraepithelial neoplasia grade III) with severe dysplasia Carpal tunnel syndrome Acute arthritis Seasonal allergic rhinitis Surgical History S/P panniculectomy 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) Hx of colonoscopy (07/2021) Tubal ligation status Family History Mother HTN (hypertension) A-fib Arthritis Father Diabetes HTN (hypertension) Sister Lupus Social History Household Members: Spouse Housing: House Are you a primary healthcare receptionist to a significant other at home: No Do you presently have visiting nurse or other home services: No Alcohol intake: current Alcohol intake frequency: does not drink Patient Tobacco Use Status: Never used Tobacco service: No Current occupational status: employed 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 No tenderness. The area was instrumented with curved Kellys, flushed with 50% saline 50% hydrogen peroxide and packed with quarter-inch iodoform packing strip. Covered with dry clean dressing. Assessment & Plan Assessment & Plan (1) Post-operative wound abscess: Code(s): T81.49XA - Infection following a procedure, other surgical site, initial encounter Category: Medical Plan: Patient is showing improvement by all measures. She is on day 21/ of Bactrim DS 1 p.o. b.i.d.. Continue daily dressing changes. Continue meal plan as directed by Dr. Monzon.
[2024-09-06 12:00] VITALS: BP 131/59; PULSE 66; TEMP 36; O2SAT 100; BMI 26.2
--- OUTSIDE RECORDS SUMMARY | 2024-09-06 12:14 | XMS_ITS | Clinical Summary ---
Author Organization [employer] Address [address] [facility] [address] [place] [address] Care Team Providers Care Bag Loader Name Role Phone Basilia Colon MD Primary Care Provider + Allergies No known active allergies Medications tiZANidine (Zanaflex) 4 MG capsuleIndicati ons:Acute pain of right shoulder Take 1 capsule (4 mg) by mouth 3 times daily. 90 capsule 1 03/09/2022 Active ergocalciferol (Vitamin D2) 1.25 MG (58056 UT) capsule TAKE 1 CAPSULE BY MOUTH [...] 1:26 PM EST): On 10/[address] 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 obesity clinic F/u in 6 mos Morbid obesity 09/03/2011 12/12/2023 Overview (12/12/2023): Sp Laparoscopic sleeve gastrectomy on 11/04/[address] [facility] Assessment & Plan (06/16/2022 11:20 AM EDT): Discussed re weight reduction options including exercise, life style modifications, diet, referral to antenna specialist. Discussed re lower calorie intake, increase dietary fiber I gave her information about weight management program for baritric surgery Encounters Date Type Department Care Team Description 09/06/2024 Results Follow-Up [facility] [place] [address] Basilia Colon MD Gram Stain Result 08/22/2024 Orders Only [facility] External Provider, [facility] 08/21/2024 Orders Only GENERIC EXTERNAL DATA DEPARTMENT Provider, Generic External Data 08/13/2024 Orders Only GENERIC EXTERNAL DATA DEPARTMENT Provider, Generic External Data 07/18/2024 Orders Only [address] [place] [address] Basilia Colon MD 06/28/2024 Orders Only GENERIC EXTERNAL DATA DEPARTMENT Provider, Generic External Data 06/26/2024 Orders Only GENERIC EXTERNAL DATA DEPARTMENT Provider, Generic External Data 06/22/2024 11:45 AM EDT Office Visit [address] [address] Basilia Colon MD Rheumatoid arthritis involving multiple sites with positive rheumatoid factor (CMS/HCC) (Primary Dx); Benign essential HTN; Dietary counseling; Exercise counseling; Overweight 06/22/2024 Travel 06/21/[address] [address] Basilia Colon MD chart prep 06/15/2024 Patient Outreach [address] [address] Basilia Colon MD Pre-visit Planning (SDOH screening [...] AM EDT Narrative 08/22/2024 12:13 PM EDT [address] [address] [address] Scan Report Signed Patient: Serenity Gómez MR#: [id number] : 1975 Acct:[id number] Age/Sex: 49 / F ADM Date: 08/22/24 Loc: HO.CT Attending Dr: Ted ALLEN Ordering Physician: Ted Beauchamp Date of Service: 08/22/24 Procedure(s): CT abdomen pelvis wo IV con Accession Number(s): [id number] cc: Ted Beauchamp; Basilia Colon MD Report Number: [id number]: Total DLP = 392.00 mGy-cm EXAMINATION: CT [...] 08/22/24 1210 DD/ 1127 TD/TT: 08/22/24 1150 Special Ed Assistant: Procedure Note Donotuseinterpreter, Image - 08/22/[address] [address] [address] Scan Report Signed Patient: Serenity Gómez MMR#: [id number] : 1975Acct:[id number] Age/Sex: 49 / FADM Date: 08/22/24 Loc: HO.CT Attending Dr: Ted ALLEN Ordering Physician: Ted Beauchamp Date of Service: 08/22/24 Procedure(s): CT abdomen pelvis wo IV con Accession Number(s): [id number] cc: Ted Beauchamp; Basilia Colon MD Report Number: [id number]: Total DLP = 392.00 mGy-cm EXAMINATION: CT [...] 08/22/24 1210 DD/ 1127 TD/TT: 08/22/24 1150 Special Ed Assistant: [facility] External Provider IMG CT PROCEDURES Final Result * (ABNORMAL) CBC auto differential (08/21/2024 9:32 AM EDT) White Blood Count 12.7(H) 4.8 - 10.8 X10*3/uL [facility] Red Blood Count 3.95(L) 4.20 - 5.50 X10*6/uL [facility] Hemoglobin 11.6(L) 12.0 - 16.0 g/dl [facility] Hematocrit 34.8(L) 37.0 - 47.0 % [facility] Mean Corpuscular Volume 88.1 80.0 - 98.0 fL [facility] Mean Corpuscular Hemoglobin 29.4 27.0 - 33.0 pg [facility] Mean Corpuscular HGB Conc 33.3 31.0 - 35.0 g/dl [facility] Red Cell Distribution Width 11.8 11.0 - 16.0 % [facility] Platelet Count 311 160 - 400 X10*3/uL [facility] Mean Platelet Volume 9.4 9.4 - 12.3 fL [facility] Neutrophils Percent Auto 73.1(H) 45 - 73 % [facility] Imm Gran Pct Auto 0.4 0.0 - 0.4 % [facility] Lymphocytes Percent Auto 16.8(L) 20 - 40 % [facility] Monocytes Percent Auto 9.1 2 - 11 % [facility] Eosinophils Percent Auto 0.4 0 - 4 % [facility] Basophils Percent Auto 0.2 0 - 2 % [facility] NRBC Pct Auto 0.0 0.0 - 0.2 /100WBC [facility] Neutrophils Absolute Auto 9.3(H) 2.0 - 8.3 x10*3/uL [facility] Imm Gran Abs Auto 0.05(H) 0.00 - 0.03 X10*3/uL [facility] Lymphocytes Absolute Auto 2.1 1.2 - 4.9 X10*3/uL [facility] Monocytes Absolute Auto 1.2 0.1 - 1.2 X10*3/uL [facility] Eosinophils Absolute Auto 0.1 0.0 - 0.4 X10*3/uL [facility] Basophils Absolute Auto 0.0 0.0 - 0.2 X10*3/uL [facility] NRBC Abs Auto 0.000 0.0 - 0.012 X10*3/uL [facility] 08/21/2024 9:32 AM EDT 08/21/2024 9:32 AM EDT us Generic External Data Provider LAB BLOOD ORDERAB LES Final Result Performing Organization Address City/State/[facility] Co de Phone Number [facility] [address] [place] [phone] * Gram Stain Result (08/13/2024 2:00 PM EDT) 08/13/2024 2:00 PM EDT 08/13/2024 2:20 PM EDT Comment:Abdomen Narrative [facility] - 08/16/2024 8:01 AM EDT Gram [...] Provider HISTORICAL/NON OR DERABLE LABS Final Result [facility] [address] [place] [address] [phone] * BI Mammogram Screening Tomosynthesis Bilateral (07/18/2024 12:10 PM EDT) Anatomical Region Laterality Modality Breast Bilateral Mammography 07/18/2024 12:1 0 PM EDT Narrative 07/27/2024 1:14 PM EDT [address] [place] [address] Mammography Report Signed Patient: Serenity Gómez MR#: [id number] : 1975 Acct:[id number] Age/Sex: 48 / F ADM Date: 07/18/24 Loc: HO.MAMMO Attending Dr: Basilia Colon MD Ordering Physician: Basilia Colon MD Results: 1Ne gative Date of Service: 07/18/24 Follow Up: 1 Year From [facility] Mammogram Procedure(s): MM tomosynthesis screening BI Accession Number(s): [id number] cc: Basilia Colon MD EXAMINATION: MM SCREENING [...] 07/27/24 1311 DD/ 1210 TD/TT: 07/18/24 1230 Special Ed Assistant: Procedure Note Donotuseinterpreter, Image - 07/27/20[facility] [address] [place] [address] Mammography Report Signed Patient: Serenity Gómez MMR#: [id number] : 1975Acct:[id number] Age/Sex: 48 / FADM Date: 07/18/24 Loc: HO.MAMMO Attending Dr: Basilia Colon MD Ordering Physician: Basilia Colon MDResults: 1Ne gative Date of Service: 07/18/24Follow Up: 1 Year From Orig ina Mammogram Procedure(s): MM tomosynthesis screening BI Accession Number(s): [id number] cc: Basilia Colon MD EXAMINATION: MM SCREENING [...] 07/27/24 1311 DD/ 1210 TD/TT: 07/18/24 1230 Special Ed Assistant: us Basilia Colon MD IMG BI PROCEDURES Final Result * Gross and Microscopic Level 3 (06/28/2024 12:08 PM EDT) 06/28/2024 12:0 8 PM EDT 06/28/2024 2:20 PM EDT [facility] - 06/29/2024 4:30 PM EDT ----- ------- Name: Serenity Gómez Age/Sex: 48/F : 1975 Unit#: [id number] Attend Dr: Roel Monzon MD Re06/28/24 Status: [facility] Location: [facility] Disch: ----- ------- SPEC : [id number] RECD: 06/28/24 STATUS: ANA MARÍA FERRERA NUM: [id number] AN: 06/28/241208 SUBM DR: Roel Monzon MD ENTERED: 06/28/24 [...] distinct cysts, lesions or nodules are identified. Therapist Rrt sections are submitted in cassettes A1-A3. CEDS IHC S/NG Disclaimer NOTE: Unless otherwise stated, all tissue is formalin-fixed and paraffin-embedded. Some or all of the immunohistochemical tests reported herein may have been developed and their performance characteristics determined by [facility]. They have not been cleared or approved by the U.S. Food and Drug Administration (FDA). However, the FDA has determined that such clearance or approval is not necessary. This laboratory is certified under the Clinical Laboratory Improvement Amendments of 1988 (CLIA) as qualified to perform high complexity clinical laboratory testing. Copies To: Basilia Colon MD [address] [address] CONTINUED ON NEXT PAGE ----- ------- Name: Serenity Gómez Age/Sex: 48/F : 1975 Unit#: [id number] Attend Dr: Roel Monzon MD Re06/28/24 Status: [facility] Location: [facility] Disch: ----- ------- SPEC : [id number] RECD: 06/28/24142 STATUS: ANA MARÍA FERRERA NUM: [id number] AN: 06/28/24-[address]: Roel Monzon MD ENTERED: 06/28/243170 SP TYPE: Surgical OTHR DR: Basilia Colon MD ORDERED: Gross Micro L3 Copies To: (Continued) Roel Monzon MD [facility] Weight Management Program [address] [place] [phone] ----- ------- Signed (signature on file) Guillermina Wakefield MD 06/29/24 [id number] ----- ------- END OF REPORT Generic External Data Provider LAB CYTOLOGY ORDE RABLES Final Result Performing Organization Address [facility]/ZIP Co de Phone Number [facility] [address] [place] [address] [phone] * Type and screen (06/26/2024 10:45 AM EDT) Blood Type AP [facility] Antibody Screen NEGATIVE [facility] 06/26/2024 10:4 5 AM EDT 06/26/2024 11:00 AM EDT Narrative [facility] - 06/26/2024 11:37 AM EDT witnessed by aMrciaURSING:Call Blood Bank (ext. [phone]) to band patient on admission.Type and Screen in effect until 2300 on 06-28-2024 Generic External Data Provider LAB BLOOD BANK TE ST ORDERABLES Final Result Performing Organization Address [facility] Co de Phone Number [facility] [address] [place] [address] [phone] * (ABNORMAL) Lipid Panel, Standard (02/24/2024 8:29 AM EST) Triglycerides 61 <150 mg/dL [facility] Comment:Desirable Triglyceri de: less than 150 mg/dLBorderline High Triglyceride 150-199 mg/dLHigh Triglyceride: 200-499 mg/dLVery High Triglyceride: greater than or equal to 5OO mg/dL Cholesterol 187 <200 mg/dL [facility] Comment:Desirable Cholestero l: less than 200 mg/dLBorderline High Cholesterol: 200-239 mg/dLHigh Cholesterol: greater than 239 mg/dL LDL Cholesterol Calculated 110(H) <100 mg/dL [facility] Comment:Desirable LDL: less than 100 mg/dLNear [...] ORDERAB LES Final Result Performing Organization Address City/State/[facility] Co de Phone Number [facility] [address] [place] [phone] * Pap Smear (12/29/2022 2:49 PM EST) 12/29/2022 2:49 PM EST 01/03/2023 7:00 AM EST Narrative [facility] - 01/13/2023 4:11 PM EST ----- ------- Name: Serenity Gómez Age/Sex: 47/F : 1975 Unit#: [id number] Attend Dr: Chalino Benton MD Re12/29/22 Status: DEP REF Location: HO.LNP Disch: ----- ------- SPEC : [id number] RECD: 01/03/23 STATUS: ANA MARÍA FERRERA NUM: [id number] AN: 12/29/22-[address] [facility] [address]: Chalino Benton MD ENTERED: 01/04/23-1317 SP TYPE: Pap Smr OTHR DR: Basilia Colon MD ORDERED: Pap Smear Interpretation Satisfactory for evaluation. Negative for intraepithelial lesion or malignancy. HPV mRNA E6/E7: NOT DETECTED This assay detects E6/E7 viral messenger RNA (mRNA) from 14 high-risk HPV types (16, 18, 31, 33, 35, 39, 45, 51, 52, 56, 58, 59, 66, 68) HPV testing performed by [employer], [place], [place]. See reference laboratory portion of the EMR for entire report. Clinical Information LMP: Postmenopausal Previous PAP test: 2021, ASCUS, HPV+ Material Received ThinPrep-Cervical Copies To: Basilia oClon MD [address] [place] [address] Chalino Benton MD [address] [place], [place] [address]Roger [address] [address] ----- ------- Signed (signature on file) MANUEL Uriarte (ASCP) 01/13/23 1611 ----- ------- END OF REPORT us Generic External Data Provider LAB CYTOLOGY NATHALIA GIBBONS Final Result [facility] [address] [place] [address] [phone] * HPV E6/E7 RFLX OLGA 16 18/45 (11/11/2021 3:37 PM EDT) HPV mRNA E6/E7 rflx Not Detected Not Detected [facility] Comment: Methodology: [employer] Glass [employer]er-Mediated Amplification This assay detects E6/E7 viral messenger RNA (mRNA) from 14 high-risk HPV types (16,18,31,33,35,39,45,51,52,56,58,59,66,68). Cervical sources are required for HPV testing. If a vaginal source from a patient who has had a total hysterectomy with removal of cervix was submitted, please contact the testing laboratory for alternative testing options. For additional information, please refer to http://education.MyDealBoard.com/faq/VXD496v8 (This link if provided for information/ educational purposes only.) THIS TEST WAS PERFORMED AT: [facility] [facility] [address] [place] [address] [address]LO[address] [address] ELIZABETH ANDRES MD 11/11/2021 3:37 PM EDT [...] purpose. For additional information please refer to http://education.MyDealBoard.com/faq/ZUZ595 (This link is being provided for informational/ educational purposes only.) The performance of this assay has not been clinically validated in patients less than 2 years old. 10/17/2020 1:05 PM EDT us Basilia Colon MD LAB BLOOD ORDERABLES Fin al Result [facility] Anywhere [address] from Last 3 Months or Most Recently Relevant to Health Maintenance Insurance [facility] Care Teams Bag Loader Relationship Specialty Start Date End Date Basilia Colon MD [address] [place] [phone] PCP - General Family Medicine 12/27/17 [facility] 06/29/24
--- OUTSIDE RECORDS SUMMARY | 2024-09-06 12:14 | XMS_ITS | Clinical Summary ---
Author Organization [facility] Address [address] [place] [address] Care Team Providers Care Blueprinting Machine Operator Name Role Phone Unavailable Primary [...] Upcoming Encounters Date Type Department Care Team ([facility] st Contact Info) Description 09/11/2024 4:20 PM EDT [facility] Visit [facility] [address] [place] [phone] Thaddeus Wright, [facility] [address] [place] [address] Health Maintenance Due Date Last Done Comments [...] 08/01/2023 Imm-Zoster, Recombinant (1 of 2) 08/01/2023 [id number] (1 - 2023- season) 2023 Alcohol and [...] Health Maintenance Insurance HEALTH SAFETY [facility]
--- OUTSIDE RECORDS SUMMARY | 2024-09-06 12:14 | XMS_ITS | Clinical Summary ---
Author Organization [employer] [facility] ity Address [address] [place] [address] Care Team Providers Care Patternmaker Plaster Name Role Phone Unavailable Primary Care Provider [...]
== END 2024-09-06 12:14 | disposition home or self-care (01) ==
LOC: HO.HBS 11:28
PROVIDERS: PCP Internal Medicine; Visit Provider Physician Assistant Surgical
DX: T81.49XA Infection following a procedure, other surgical site, initial encounter (principal)
CPT/HCPCS: 99024

== ENCOUNTER → 2024-09-06 11:28 | Outpatient (BNVA) | payer OTHER, SELFPAY | PROVIDERS: PCP Internal Medicine; Visit Provider Physician Assistant Surgical | DX: T81.49XA Infection following a procedure, other surgical site, initial encounter (principal); Z90.3 Acquired absence of stomach [part of] | CPT/HCPCS: 99212 ==

== ENCOUNTER 2024-09-07 13:54 | Outpatient (AMB) | payer OTHER, SELFPAY ==
--- NOTE | 2024-09-07 13:56 | A.OFFVIS_ITS ---
VS Expanded 09/07/24 14:44 BP 145/62 H Blood Pressure Location Rt brachial Blood Pressure Position Sitting Pulse 64 Pulse Source Pulse Oximeter Temp 96.7 F L Temperature Source Temporal Artery Scan Pulse Oximetry 98 Oxygen Delivery Method Room Air Height 4 ft 11 in Weight 129 lb 3.2 oz BMI 26.1 Body Fat % 31.1 Body Fat Mass 40.2 Fat Free Mass 89.0 Visceral Fat Rating 6.0 Body Water % 49.0 Body Water Mass 63.2 Muscle Mass/Score 84.4 Basal Metabolic Rate/Score 1,214 Intake Visit Reasons: OV Panniculectomy 06/28/24 Allergies No Known Allergies Allergy (Verified 08/31/24 14:01) HPI Comments Details: Patient is a 49-year-old female who returns to the office today in follow-up. She is status post panniculectomy on 06/28/2024. She developed postoperative abscess with subsequent dehiscence along the right lateral border and anterior. Today is day 22 of 28 of Bactrim for culture confirmed MRSA. She is having much less purulent drainage, no further drainage from the right side. She continues to follow her meal plan as directed by Dr. Monzon as well as wound care. She feels well. meal plan: Orgain 1/2 scoop x 3 fit crunch bar x 1 meal w 4 forks protein and 4 forks veg PFSH Medical History (Updated 08/20/24 @ 13:35 by TIFFANY Fox) Excess skin History of vertigo Nephrolithiasis GERD (gastroesophageal reflux disease) Anxiety Depression BMI 39.0-39.9,adult Morbid obesity Right shoulder injury Left lateral epicondylitis Right shoulder tendonitis Carpal tunnel syndrome on both sides Normal vulvar exam Hemorrhoids Diverticulosis Tubular adenoma Encounter for screening colonoscopy Postmenopausal bleeding Well woman exam BENITO III (cervical intraepithelial neoplasia grade III) with severe dysplasia Carpal tunnel syndrome Acute arthritis Seasonal allergic rhinitis Surgical History S/P panniculectomy 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) Hx of colonoscopy (07/2021) Tubal ligation status Family History Mother HTN (hypertension) A-fib Arthritis Father Diabetes HTN (hypertension) Sister Lupus Social History Household Members: Spouse Housing: House Are you a primary pediatric critical care nurse to a significant other at home: No Do you presently have visiting nurse or other home services: No Alcohol intake: current Alcohol intake frequency: does not drink Patient Tobacco Use Status: Never used Tobacco service: No Current occupational status: employed 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 This was flushed with 50% normal saline 50% hydrogen peroxide. Packed with quarter-inch iodoform packing. No significant fluctuance or gross purulent drainage Assessment & Plan Assessment & Plan (1) Post-operative wound abscess: Code(s): T81.49XA - Infection following a procedure, other surgical site, initial encounter Category: Medical Plan: Continue antibiotics, day Continue packing and daily flushing Continue abdominal binder Continue meal plan Return to clinic Tuesday
--- OUTSIDE RECORDS SUMMARY | 2024-09-07 13:56 | XMS_ITS | Clinical Summary ---
Author Organization [facility] Address [address] [place] [address] Care Team Providers Care Drier And Grinder Tender Name Role Phone Unavailable Primary Care [...] 4:20 PM EDT [facility] Visit [facility] [address] [place] [phone] Thaddeus Wright, [facility] [address] [place] [address] Health Maintenance Due Date Last Done Comments [...] 08/01/2023 Imm-Zoster, Recombinant (1 of 2) 08/01/2023 [id number] (1 - 2023- season) 2023 Alcohol and [...] Relevant to Health Maintenance Insurance HEALTH SAFETY [facility]
--- OUTSIDE RECORDS SUMMARY | 2024-09-07 13:56 | XMS_ITS | Clinical Summary ---
Author Organization [employer] [facility] ity Address [address] [place] [address] Care Team Providers Care Personnel Records Clerk Name Role Phone Unavailable Primary Care Provider [...]
--- OUTSIDE RECORDS SUMMARY | 2024-09-07 13:56 | XMS_ITS | Clinical Summary ---
Author Organization [employer] Address [address] [facility] [address] [place] [address] Care Team Providers Care Aeronautical Engineer Name Role Phone Basilia Colon MD Primary Care Provider + Allergies No known active allergies Medications tiZANidine (Zanaflex) 4 MG capsuleIndicati ons:Acute pain of right shoulder Take 1 capsule (4 mg) by mouth 3 times daily. 90 capsule 1 03/09/2022 Active ergocalciferol (Vitamin D2) 1.25 MG (18952 UT) capsule TAKE 1 CAPSULE BY MOUTH [...] (12/12/2023 1:26 PM EST): [place] 10[place]20[place] [facility] [place] for breast cancer 07/01/2023 Assessment [...] Resolved, last PAP was wnl Fu w/ STEE[facility] JACK for PAP smear 12/2023 Assessment & Plan (06/16/2022 11:21 AM EDT): PAP smear on 12/03/21 showed NIL/+HPV FU with STEE[facility] JACK on 11/2022 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 Resolved Problems Problem Noted Date Diagnosed Date Resolved Date Obesity (BMI 30.0-34.9) 12/27/2022 11/0 05/2023 Assessment & Plan (12/27/2022 3:25 PM EST): Status Post bariatric surgery Significant decrease in BMI Continue Multivitamins Iron + zinc supplementation F/u [facility] [place] F/u in 6 mos Morbid obesity 09/03/2011 12/12/2023 Overview (12/12/2023): Sp Laparoscopic sleeve gastrectomy on 11/04/22 at [facility] Assessment & Plan (06/16/2022 11:20 AM EDT): Discussed re weight reduction options including exercise, life style modifications, diet, referral to catalog specialist. Discussed re lower calorie intake, increase dietary fiber I gave her information about weight management program for baritric surgery Encounters Date Type Department Care Team Description 09/06/2024 Results Follow-Up [facility] [place] [address] Basilia oClon MD Gram Stain Result 08/22/2024 Orders Only [facility] External Provider, [facility] 08/21/2024 Orders Only GENERIC EXTERNAL DATA DEPARTMENT Provider, Generic External Data 08/13/2024 Orders Only GENERIC EXTERNAL DATA DEPARTMENT Provider, Generic External Data 07/18/2024 Orders Only [address] [place] [address] Basilia Colon MD 06/28/2024 Orders Only GENERIC EXTERNAL DATA DEPARTMENT Provider, Generic External Data 06/26/2024 Orders Only GENERIC EXTERNAL DATA DEPARTMENT Provider, Generic External Data 06/22/2024 11:45 AM EDT Office Visit [address] [address] Basilia Colon MD Rheumatoid arthritis involving multiple sites with positive rheumatoid factor (CMS/HCC) (Primary Dx); Benign essential HTN; Dietary counseling; Exercise counseling; Overweight 06/22/2024 Travel 06/21/[address] [address] Basilia Colon MD chart prep 06/15/2024 Patient Outreach [address] [address] Basilia Colon MD Pre-visit Planning (SDOH screening [...] AM EDT Narrative 08/22/2024 12:13 PM EDT [address] [address] [address] Scan Report Signed Patient: Serenity Gómez MR#: [id number] : 1975 Acct:[id number] Age/Sex: 49 / F ADM Date: 08/22/24 Loc: HO.CT Attending Dr: Ted ALLEN Ordering Physician: Ted Beauchamp Date of Service: 08/22/24 Procedure(s): CT abdomen pelvis wo IV con Accession Number(s): [id number] cc: Ted Beauchamp; Basilia Colon MD Report Number: [id number]: Total DLP = 392.00 mGy-cm EXAMINATION: CT [...] 08/22/24 1210 DD/ 1127 TD/TT: 08/22/24 1150 Tomato Grader: Procedure Note Donotuseinterpreter, Image - 08/22/[address] [address] [address] Scan Report Signed Patient: Serenity Gómez MMR#: [id number] : 1975Acct:[id number] Age/Sex: 49 / FADM Date: 08/22/24 Loc: HO.CT Attending Dr: Ted ALLEN Ordering Physician: Ted Beauchamp Date of Service: 08/22/24 Procedure(s): CT abdomen pelvis wo IV con Accession Number(s): [id number] cc: Ted Beauchamp; Basilia Colon MD Report Number: [id number]: Total DLP = 392.00 mGy-cm EXAMINATION: CT [...] 08/22/24 1210 DD/ 1127 TD/TT: 08/22/24 1150 Tomato Grader: [facility] External Provider IMG CT PROCEDURES Final Result * (ABNORMAL) CBC auto differential (08/21/2024 9:32 AM EDT) White Blood Count 12.7(H) 4.8 - 10.8 X10*3/uL [facility] Red Blood Count 3.95(L) 4.20 - 5.50 X10*6/uL [facility] Hemoglobin 11.6(L) 12.0 - 16.0 g/dl [facility] Hematocrit 34.8(L) 37.0 - 47.0 % [facility] Mean Corpuscular Volume 88.1 80.0 - 98.0 fL [facility] Mean Corpuscular Hemoglobin 29.4 27.0 - 33.0 pg [facility] Mean Corpuscular HGB Conc 33.3 31.0 - 35.0 g/dl [facility] Red Cell Distribution Width 11.8 11.0 - 16.0 % [facility] Platelet Count 311 160 - 400 X10*3/uL [facility] Mean Platelet Volume 9.4 9.4 - 12.3 fL [facility] Neutrophils Percent Auto 73.1(H) 45 - 73 % [facility] Imm Gran Pct Auto 0.4 0.0 - 0.4 % [facility] Lymphocytes Percent Auto 16.8(L) 20 - 40 % [facility] Monocytes Percent Auto 9.1 2 - 11 % [facility] Eosinophils Percent Auto 0.4 0 - 4 % [facility] Basophils Percent Auto 0.2 0 - 2 % [facility] NRBC Pct Auto 0.0 0.0 - 0.2 /100WBC [facility] Neutrophils Absolute Auto 9.3(H) 2.0 - 8.3 x10*3/uL [facility] Imm Gran Abs Auto 0.05(H) 0.00 - 0.03 X10*3/uL [facility] Lymphocytes Absolute Auto 2.1 1.2 - 4.9 X10*3/uL [facility] Monocytes Absolute Auto 1.2 0.1 - 1.2 X10*3/uL [facility] Eosinophils Absolute Auto 0.1 0.0 - 0.4 X10*3/uL [facility] Basophils Absolute Auto 0.0 0.0 - 0.2 X10*3/uL [facility] NRBC Abs Auto 0.000 0.0 - 0.012 X10*3/uL [facility] 08/21/2024 9:32 AM EDT 08/21/2024 9:32 AM EDT us Generic External Data Provider LAB BLOOD ORDERAB LES Final Result Performing Organization Address City/State/[facility] Co de Phone Number [facility] [address] [place] [phone] * Gram Stain Result (08/13/2024 2:00 PM EDT) 08/13/2024 2:00 PM EDT 08/13/2024 2:20 PM EDT Comment:Abdomen Narrative [facility] - 08/16/2024 8:01 AM EDT [...] Provider HISTORICAL/NON OR DERABLE LABS Final Result [facility] [address] [place] [address] [phone] * BI Mammogram Screening Tomosynthesis Bilateral (07/18/2024 12:10 PM EDT) Anatomical Region Laterality Modality Breast Bilateral Mammography 07/18/2024 12:1 0 PM EDT Narrative 07/27/2024 1:14 PM EDT [address] [place] [address] Mammography Report Signed Patient: Serenity Gómez MR#: [id number] : 1975 Acct:[id number] Age/Sex: 48 / F ADM Date: 07/18/24 Loc: HO.MAMMO Attending Dr: Basilia Colon MD Ordering Physician: Basilia Colon MD Results: 1Ne gative Date of Service: 07/18/24 Follow Up: 1 Year From [facility] Mammogram Procedure(s): MM tomosynthesis screening BI Accession Number(s): [id number] cc: Basilia Colon MD EXAMINATION: MM SCREENING [...] 07/27/24 1311 DD/ 1210 TD/TT: 07/18/24 1230 Tomato Grader: Procedure Note Donotuseinterpreter, Image - 07/27/[facility] [address] [place] [address] Mammography Report Signed Patient: Serenity Gómez MMR#: [id number] : 1975Acct:[id number] Age/Sex: 48 / FADM Date: 07/18/24 Loc: HO.MAMMO Attending Dr: Basilia Colon MD Ordering Physician: Basilia Colon MDResults: 1Ne gative Date of Service: 07/18/24Follow Up: 1 Year From Orig ina Mammogram Procedure(s): MM tomosynthesis screening BI Accession Number(s): [id number] cc: Basilia Colon MD EXAMINATION: MM SCREENING [...] 07/27/24 1311 DD/ 1210 TD/TT: 07/18/24 1230 Tomato Grader: us Basilia Colon MD IMG BI PROCEDURES Final Result * Gross and Microscopic Level 3 (06/28/2024 12:08 PM EDT) 06/28/2024 12:0 8 PM EDT 06/28/2024 2:20 PM EDT [facility] - 06/29/2024 4:30 PM EDT ----- ------- Name: Serenity Gómez Age/Sex: 48/F : 1975 Unit#: [id number] Attend Dr: Roel Monzon MD Re06/28/24 Status: [facility] Location: [facility] Disch: ----- ------- SPEC : [id number] RECD: 06/28/24 STATUS: ANA MARÍA FERRERA NUM: [id number] AN: 06/28/241208 SUBM DR: Roel Monzon MD [...] distinct cysts, lesions or nodules are identified. Civil Preparedness Coordinator sections are submitted in cassettes A1-A3. CEDS IHC S/NG Disclaimer NOTE: Unless otherwise stated, all tissue is formalin-fixed and paraffin-embedded. Some or all of the immunohistochemical tests reported herein may have been developed and their performance characteristics determined by [facility]. They have not been cleared or approved by the U.S. Food and Drug Administration (FDA). However, the FDA has determined that such clearance or approval is not necessary. This laboratory is certified under the Clinical Laboratory Improvement Amendments of 1988 (CLIA) as qualified to perform high complexity clinical laboratory testing. Copies To: Basilia Colon MD [address] [address] CONTINUED ON NEXT PAGE ----- ------- Name: Serenity Gómez Age/Sex: 48/F : 1975 Unit#: [id number] Attend Dr: Roel Monzon MD Re06/28/24 Status: [facility] Location: [facility] Disch: ----- ------- SPEC : [id number] RECD: 06/28/24142 STATUS: ANA MARÍA FERRERA NUM: [id number] AN: 06/28/24-[address]: Roel Monzon MD ENTERED: 06/28/244667 SP TYPE: Surgical OTHR DR: Basilia Colon MD ORDERED: Gross Micro L3 Copies To: (Continued) Roel Monzon MD [facility] [address] [place] [phone] ----- ------- Signed (signature on file) Guillermina Wakefield MD 06/29/24 2353 ----- ------- END OF REPORT Generic External Data Provider LAB CYTOLOGY ORDE RABLES Final Result Performing Organization Address [facility]/ZIP Co de Phone Number [facility] [address] [place] [phone] * Type and screen (06/26/2024 10:45 AM EDT) Blood Type AP [facility] Antibody Screen NEGATIVE [facility] 06/26/2024 10:4 5 AM EDT 06/26/2024 11:00 AM EDT Narrative [facility] - 06/26/2024 11:37 AM EDT witnessed by MarciaURSING:Call Blood Bank (ext. [phone]) to band patient on admission.Type and Screen in effect until 2300 on 06-28-2024 Generic External Data Provider LAB BLOOD BANK TE ST ORDERABLES Final Result Performing Organization Address [facility] Co de Phone Number [facility] [address] [place] [phone] * (ABNORMAL) Lipid Panel, Standard (02/24/2024 8:29 AM EST) Triglycerides 61 <150 mg/dL [facility] Comment:Desirable Triglyceri de: less than 150 mg/dLBorderline High Triglyceride 150-199 mg/dLHigh Triglyceride: 200-499 mg/dLVery High Triglyceride: greater than or equal to 5OO mg/dL Cholesterol 187 <200 mg/dL [facility] Comment:Desirable Cholestero l: less than 200 mg/dLBorderline High Cholesterol: 200-239 mg/dLHigh Cholesterol: greater than 239 mg/dL LDL Cholesterol Calculated 110(H) <100 mg/dL [facility] Comment:Desirable LDL: less than 100 mg/dLNear Optimal/Above Optimal LDL: 110- 129 mg/dLBorderline High LDL: 130-159 mg/dLHigh LDL: 160-189 mg/dLVery High LDL: greater than or equal to 190 mg/dL HDL Cholesterol 65 >40 mg/dL [facility] Comment:Desirable HDL: great er than 40 mg/dL Note: This HDL assay may give artificially low results in patients with liver disease. 02/24/2024 8:29 AM EST 02/24/2024 8:29 AM EST us Generic External Data Provider LAB BLOOD ORDERAB LES Final Result Performing Organization Address City/State/[facility] Co de Phone Number [facility] [address] [place] [phone] * Pap Smear (12/29/2022 2:49 PM EST) 12/29/2022 2:49 PM EST 01/03/2023 7:00 AM EST Narrative [facility] - 01/13/2023 4:11 PM EST ----- ------- Name: Serenity Gómez Age/Sex: 47/F : 1975 Unit#: [id number] Attend Dr: Chalino Benton MD Re12/29/22 Status: DEP REF Location: HO.LNP Disch: ----- ------- SPEC : [id number] RECD: 01/03/23 STATUS: ANA MARÍA FERRERA NUM: [id number] AN: 12/29/22-[address] [facility] [address]: Chalino Benton MD ENTERED: 01/04/23-1317 SP [...] 59, 66, 68) HPV testing performed by [facility] [employer], [place], [place]. See reference laboratory portion of the EMR for entire report. Clinical Information LMP: Postmenopausal Previous PAP test: 2021, ASCUS, HPV+ Material Received ThinPrep-Cervical Copies To: Basilia Colon MD [address] [place] [phone] Chalino Benton MD [address] [place], [place] [address]Roger [address] [address] ----- ------- Signed (signature on file) MANUEL Uriarte (ASCP) 01/13/23 1611 ----- ------- END OF REPORT us Generic External Data Provider LAB CYTOLOGY NATHALIA GIBBONS Final Result [facility] [address] [place] [address] [phone] * HPV E6/E7 RFLX OLGA 16 18/45 (11/11/2021 3:37 PM EDT) HPV mRNA E6/E7 rflx Not Detected Not Detected [facility] Comment: Methodology: Mechanical Specialist-Mediated Amplification This assay detects E6/E7 viral messenger RNA (mRNA) from 14 high-risk HPV types (16,18,31,33,35,39,45,51,52,56,58,59,66,68). Cervical sources are required for HPV testing. If a vaginal source from a patient who has had a total hysterectomy with removal of cervix was submitted, please contact the testing laboratory for alternative testing options. For additional information, please refer to http://education.[employer]/faq/DQO644c2 (This link if provided for information/ educational purposes only.) THIS TEST WAS PERFORMED AT: [facility] [address] [place] [address] [address]LO[address],[place] [address] ELIZABETH ANDRES MD 11/11/2021 3:37 PM EDT [...] purpose. For additional information please refer to http://education.[employer]/faq/XZD346 (This link is being provided for informational/ educational purposes only.) The performance of this assay has not been clinically validated in patients less than 2 years old. 10/17/2020 1:05 PM EDT us Basilia Colon MD LAB BLOOD ORDERABLES Fin al Result [facility] Anywhere [address] from Last 3 Months or Most Recently Relevant to Health Maintenance Insurance [facility] Care Teams Aeronautical Engineer Relationship Specialty Start Date End Date Basilia Colon MD [address] [place] [phone] PCP - General Family Medicine 12/27/17 [facility] 06/29/24
[2024-09-07 14:44] VITALS: BP 145/62; PULSE 64; TEMP 35.9; O2SAT 98; BMI 26.1
== END 2024-09-07 14:30 | disposition home or self-care (01) ==
LOC: HO.HBS 13:55
PROVIDERS: PCP Internal Medicine; Visit Provider Physician Assistant Surgical
DX: T81.49XA Infection following a procedure, other surgical site, initial encounter (principal)
CPT/HCPCS: 99024

== ENCOUNTER → 2024-09-07 13:54 | Outpatient (BNVA) | payer OTHER, SELFPAY | PROVIDERS: PCP Internal Medicine; Visit Provider Physician Assistant Surgical | DX: T81.49XA Infection following a procedure, other surgical site, initial encounter (principal) | CPT/HCPCS: 99212 ==

== ENCOUNTER 2024-09-10 11:27 | Outpatient (AMB) | payer OTHER, SELFPAY ==
--- NOTE | 2024-09-10 11:32 | MHC.OFFVISWM ---
VS Expanded 09/10/24 11:56 BP 121/70 Blood Pressure Location Rt brachial Blood Pressure Position Sitting Pulse 65 Pulse Source Pulse Oximeter Temp 97.0 F Temperature Source Temporal Artery Scan Pulse Oximetry 98 Oxygen Delivery Method Room Air Height 4 ft 11 in Weight 131 lb 6.4 oz BMI 26.5 Body Fat % 31.7 Body Fat Mass 41.6 Fat Free Mass 89.8 Visceral Fat Rating 6.0 Body Water % 48.5 Body Water Mass 63.8 Muscle Mass/Score 85.0 Basal Metabolic Rate/Score 1,224 Intake Visit Reasons: OV Panniculectomy 06/28/24 Allergies No Known Allergies Allergy (Verified 08/31/24 14:01) HPI Comments Details: Patient is a 49-year-old female who returns to the office today in follow-up. She is status post panniculectomy on 06/28/2024. She developed postoperative abscess with subsequent dehiscence along the right lateral border and anterior. Today is day 25 of 28 of Bactrim for culture confirmed MRSA. She is almost no purulent drainage from the midline opening, no drainage from the right side. She had the wound packed and dressed by visiting nurses over the weekend. She continues to follow her meal plan as directed by Dr. Monzon as well as wound care. She feels well. meal plan: Orgain 1/2 scoop x 3 fit crunch bar x 1 meal w 4 forks protein and 4 forks veg [facility] Medical History (Updated 08/20/24 @ 13:35 by TIFFANY Fox) Excess skin History of vertigo Nephrolithiasis GERD (gastroesophageal reflux disease) Anxiety Depression BMI 39.0-39.9,adult Morbid obesity Right shoulder injury Left lateral epicondylitis Right shoulder tendonitis Carpal tunnel syndrome on both sides Normal vulvar exam Hemorrhoids Diverticulosis Tubular adenoma Encounter for screening colonoscopy Postmenopausal bleeding Well woman exam BENITO III (cervical intraepithelial neoplasia grade III) with severe dysplasia Carpal tunnel syndrome Acute arthritis Seasonal allergic rhinitis Surgical History S/P panniculectomy 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) Hx of colonoscopy (07/2021) Tubal ligation status Family History Mother HTN (hypertension) A-fib Arthritis Father Diabetes HTN (hypertension) Sister Lupus Social History Household Members: Spouse Housing: House Are you a primary pet care associate to a significant other at home: No Do you presently have visiting nurse or other home services: No Alcohol intake: current Alcohol intake frequency: does not drink Patient Tobacco Use Status: Never used Tobacco service: No Current occupational status: employed 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 No drainage whatsoever. The midline opening had some minimal purulence on the iodoform packing. There was no purulence expressed. The area was flushed with 50% hydrogen peroxide and 50% normal saline without difficulty. Previously noted induration has significantly improved. Assessment & Plan Assessment & Plan (1) Post-operative wound abscess: Code(s): T81.49XA - Infection following a procedure, other surgical site, initial encounter Category: Medical Plan: Patient continues to show significant improvement. Today is day 25 of 28 of Bactrim DS 1 tab p.o. b.i.d.. She continues the meal plan as directed by Dr. Monzon. No fevers no chills at home. Subjectively she feels as though she has significantly improved. Return to the office tomorrow.
[2024-09-10 11:56] VITALS: BP 121/70; PULSE 65; TEMP 36.1; O2SAT 98; BMI 26.5
--- OUTSIDE RECORDS SUMMARY | 2024-09-10 12:20 | XMS_ITS | Clinical Summary ---
Author Organization [employer] [facility] ity Address [address] [place] [address] Care Team Providers Care Counter Installer Name Role Phone Unavailable Primary Care [...]
--- OUTSIDE RECORDS SUMMARY | 2024-09-10 12:20 | XMS_ITS | Clinical Summary ---
Author Organization [employer] Address [address] [facility] [address] [place] [address] Care Team Providers Care Lines Tender Name Role Phone Tavo Beckman MD Primary Care Provider + Allergies No known active allergies Medications tiZANidine (Zanaflex) 4 MG capsuleIndicati ons:Acute pain of right shoulder Take 1 capsule (4 mg) by mouth 3 times daily. 90 capsule 1 03/09/2022 Active ergocalciferol (Vitamin D2) 1.25 MG (69707 UT) capsule TAKE 1 CAPSULE BY MOUTH EVERY WEEK 12 capsule 01/19/2023 Active FLUoxetine (PROzac) 20 MG capsule Take 1 capsule (20 mg) by mouth Once per day. 90 capsule 3 06/22/2024 6 Active Active Problems Problem Noted Date Diagnosed Date Benign essential HTN 06/22/2024 Assessment & Plan (09/07/2024 3:02 PM EDT): Fairly controlled. Continue dietary modifications counseled re low salt diet/increase moderate physical activity. Check home BP BIW and prn CP/SHEETS/SAENZ Non smoking patient. S/P laparoscopic sleeve gastrectomy 12/12/2023 Assessment & Plan (12/12/2023 1:26 PM EST): On 10/2022 at [facility] Overweight 12/12/2023 Assessment & Plan (09/07/2024 3:03 PM EDT): >>ASSESSMENT AND PLAN FOR OVERWEIGHT (BMI 25.0-29.9) WRITTEN ON 12/12/2023 1:25 PM BY TAVO BECKMAN MD I congratulated her for weight reduction, sp bariatric surgery on 10/2022, currently on regular small portions diet. Discussed re continuing exercise, life style modifications. FU with bariatric surgery. Assessment & Plan (09/07/2024 3:03 PM EDT): Continued to lose weight status post bariatric surgery Continue vitamin supplementation lifelong Encouraged about increased exercise and follow-up with bariatric surgeon Screening mammogram for breast cancer 07/01/2023 Assessment [...] positive rheumatoid factor 03/09/2022 Assessment & Plan (09/07/2024 3:04 PM EDT): Patient with positive RNA markers but no clinically significant disease Continue follow-up with rheumatology every year and reconsult as needed worsening of arthritic symptoms, fever, hair loss, hand deformities Assessment & Plan (07/01/2023 12:44 PM EDT): [...] Resolved, last PAP was wnl Fu w/ PROGRESS WORKER for PAP smear 12/2023 Assessment & Plan (06/16/2022 11:21 AM EDT): PAP smear on 12/03/21 showed NIL/+HPV FU with PROGRESS WORKER on 11/2022 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 Resolved Problems Problem Noted Date Diagnosed Date Resolved Date Obesity (BMI 30.0-34.9) 12/27/2022 110 05/2023 Assessment & Plan (12/27/2022 3:25 PM EST): Status Post bariatric surgery Significant decrease in BMI Continue Multivitamins Iron + zinc supplementation F/u [facility] obesity clinic F/u in 6 mos Morbid obesity 09/03/2011 12/12/2023 Overview (12/12/2023): Sp Laparoscopic sleeve gastrectomy on 11/04/22 at [facility] Assessment & Plan (06/16/2022 11:20 AM EDT): Discussed re weight reduction options including exercise, life style modifications, diet, referral to sports specialist. Discussed re lower calorie intake, increase dietary fiber I gave her information about weight management program for baritric surgery Encounters Date Type Department Care Team Description 09/06/2024 Results Follow-Up [facility] [address] [place] [phone] Tavo Beckman MD Gram Stain Result 08/22/2024 Orders Only [facility] External Provider, [facility] 08/21/2024 Orders Only GENERIC EXTERNAL DATA DEPARTMENT Provider, Generic External Data 08/13/2024 Orders Only GENERIC EXTERNAL DATA DEPARTMENT Provider, Generic External Data 07/18/2024 Orders Only [facility] [address] [place] [address] Tavo Beckman MD 06/28/2024 Orders Only GENERIC EXTERNAL DATA DEPARTMENT Provider, Generic External Data 06/26/2024 Orders Only GENERIC EXTERNAL DATA DEPARTMENT Provider, Generic External Data 06/22/2024 11:45 AM EDT Office Visit [facility] [address] [place] [address] Tavo Beckman MD Rheumatoid arthritis involving multiple sites with positive rheumatoid factor (CMS/HCC) (Primary Dx); Overweight; Benign essential HTN; Dietary counseling; Exercise counseling 06/22/2024 Travel 06/21/2024 Telephone [facility] [address] [place] [address] Tvao Beckman MD chart prep 06/15/2024 Patient Outreach [facility] [address] [place] [address] Tavo Beckman MD Pre-visit Planning (SDOH screening positive and [...] Tobacco Screening 06/22/2025 06/22/2024 Mammogram 07/18/2025 07/18/2024, 0606/2023, 07/07/2022, Additional history exists Colonoscopy 07/08/2026 07/08/2021 [...] AM EDT Narrative 08/22/2024 12:13 PM EDT [place] [address] [address] Scan Report Signed Patient: Serenity Gómez MR#: [id number] : 1975 Acct:[id number] Age/Sex: 49 / F ADM Date: 08/22/24 Loc: .CT Attending Dr: Ted ALLEN Ordering Physician: Ted Beauchamp Date of Service: 08/22/24 Procedure(s): CT abdomen pelvis wo IV con Accession Number(s): [id number] cc: Ted Beauchamp; Tavo Beckman MD Report Number: [id number]: Total DLP = 392.00 mGy-cm EXAMINATION: CT [...] 08/22/24 1210 DD/ 1127 TD/TT: 08/22/24 1150 Product Design Specialist: Procedure Note Donotuseinterpreter, Image - 08/22/[address] [address] [address] Scan Report Signed Patient: Serenity Gómez MMR#: [id number] : 1975Acct:[id number] Age/Sex: 49 / FADM Date: 08/22/24 Loc: HO.CT Attending Dr: Ted ALLEN Ordering Physician: Ted Beauchamp Date of Service: 08/22/24 Procedure(s): CT abdomen pelvis wo IV con Accession Number(s): [id number] cc: Ted Beauchamp; Tavo Beckman MD Report Number: [id number]: Total DLP = 392.00 mGy-cm EXAMINATION: CT [...] 08/22/24 1210 DD/ 1127 TD/TT: 08/22/24 1150 Product Design Specialist: [facility] External Provider IMG CT PROCEDURES Final [...] ORDERAB LES Final Result Performing Organization Address City/[facility]/ZIP Co de Phone Number [facility] [address] [place] [address] [phone] * Gram Stain Result (08/13/2024 2:00 [...] Final Result Performing Organization Address [facility] Co de Phone Number [facility] [address] [place] [phone] * BI Mammogram Screening Tomosynthesis Bilateral (07/18/2024 12:10 PM EDT) Anatomical Region Laterality Modality Breast Bilateral Mammography 07/18/2024 12:1 0 PM EDT Narrative 07/27/2024 1:14 PM EDT [address] [place] [address] Mammography Report Signed Patient: Serenity Gómez MR#: [id number] : 1975 Acct:[id number] Age/Sex: 48 / F ADM Date: 07/18/24 Loc: HO.MAMMO Attending Dr: Tavo Beckman MD Ordering Physician: Tavo Beckman MD Results: 1Ne gative Date of Service: 07/18/24 Follow Up: 1 Year From Orig ina Mammogram Procedure(s): MM tomosynthesis screening BI Accession Number(s): [id number] cc: Tavo Beckman MD EXAMINATION: MM SCREENING DIGITAL BREAST TOMOSYNTHESIS, [...] 07/27/24 1311 DD/ 1210 TD/TT: 07/18/24 1230 Product Design Specialist: Procedure Note Donotuseinterpreter, Image - 07/27/2024 [facility] [address] [place] [address] Mammography Report Signed Patient: Serenity Gómez MMR#: [id number] : 1975Acct:[id number] Age/Sex: 48 / FADM Date: 07/18/24 Loc: HO.MAMMO Attending Dr: Tavo Beckman MD Ordering Physician: Tavo Beckman MDResults: 1Ne gative Date of Service: 07/18/24Follow Up: 1 Year From Orig ina Mammogram Procedure(s): MM tomosynthesis screening BI Accession Number(s): [id number] cc: Tavo Beckman MD EXAMINATION: MM SCREENING DIGITAL BREAST TOMOSYNTHESIS, [...] 07/27/24 1311 DD/ 1210 TD/TT: 07/18/24 1230 Product Design Specialist: us Tavo Beckman MD IMG BI PROCEDURES Final Result * Gross and Microscopic Level 3 (06/28/2024 12:08 PM EDT) 06/28/2024 12:0 8 PM EDT 06/28/2024 2:20 PM EDT [facility] - 06/29/2024 4:30 PM EDT ----- ------- Name: Serenity Gómez Age/Sex: 48/F : 1975 Unit#: [id number] Attend Dr: Roel Monzon MD Re06/28/24 Status: [facility] Location: [facility] Disch: ----- ------- SPEC : [id number] RECD: 06/28/24-1420 [facility] NUM: [id number] AN: 06/28/24-[address]: Roel Monzon MD ENTERED: 06/28/24-3544 SP TYPE: Surgical OTHR DR: Tavo Beckman MD ORDERED: Gross Micro L3 Diagnosis Skin [...] distinct cysts, lesions or nodules are identified. Capital Campaign Fundraiser sections are submitted in cassettes A1-A3. CEDS IHC S/NG Disclaimer NOTE: Unless otherwise stated, all tissue is formalin-fixed and paraffin-embedded. Some or all of the immunohistochemical tests reported herein may have been developed and their performance characteristics determined by [facility]. They have not been cleared or approved by the U.S. Food and Drug Administration (FDA). However, the FDA has determined that such clearance or approval is not necessary. This laboratory is certified under the Clinical Laboratory Improvement Amendments of 1988 (CLIA) as qualified to perform high complexity clinical laboratory testing. Copies To: Tavo Beckman MD [address] [id number] CONTINUED ON NEXT PAGE ----- ------- Name: Serenity Gómez Age/Sex: 48/F : 1975 Unit#: [id number] Attend Dr: Roel Monzon MD Re06/28/24 Status: [facility] Location: [facility] Disch: ----- ------- SPEC : [id number] RECD: 06/28/24-1420 STATUS: [facility] NUM: [id number] AN: 06/28/24-[address]: Roel Monzon MD ENTERED: 06/28/24-7385 SP TYPE: Surgical OTHR DR: Tavo Beckman MD ORDERED: Gross Micro L3 Copies To: (Continued) Roel Monzon MD [facility] Weight Management Program [address] [place] [phone] ----- ------- Signed (signature on file) Guillermina Wakefield MD 06/29/24 1630 ----- ------- END OF REPORT Generic External Data Provider LAB CYTOLOGY ORDMary RABDAVID Final Result Performing Organization Address [facility]/ZIP Co de Phone Number [facility] [address] [place] [address] [phone] * Type and screen (06/26/2024 10:45 AM EDT) Blood Type AP [facility] Antibody Screen NEGATIVE [facility] 06/26/2024 10:4 5 AM EDT 06/26/2024 11:00 AM EDT Narrative [facility] - 06/26/2024 11:37 AM EDT witnessed by Gerson:Call Blood Bank (ext. [phone]) to band patient on admission.Type and Screen in effect until 2300 on 06-28-2024 Generic External Data Provider LAB BLOOD BANK TE ST ORDERABLES Final Result Performing Organization Address [facility]/ZIP Co de Phone Number [facility] [address] [place] [phone] * (ABNORMAL) Lipid Panel, Standard (02/24/2024 8:29 AM EST) Triglycerides 61 <150 mg/dL [facility] Comment:Desirable Triglyceri de: less than 150 [...] 190 mg/dL HDL Cholesterol 65 >40 mg/dL [facility] Comment:Desirable HDL: great er than 40 mg/dL Note: This HDL assay may give artificially low results in patients with liver disease. 02/24/2024 8:29 AM EST 02/24/2024 8:29 AM EST us Generic External Data Provider LAB BLOOD ORDERAB LES Final Result [facility] [address] [place] [phone] * Pap Smear (12/29/2022 2:49 PM EST) 12/29/2022 2:49 PM EST 01/03/2023 7:00 AM EST Narrative [facility] - 01/13/2023 4:11 PM EST ----- ------- Name: Serenity Gómez Age/Sex: 47/F : 1975 Unit#: [id number] Attend Dr: Chalino Benton MD Re12/29/22 Status: DEP REF Location: [facility] Disch: ----- ------- SPEC : [id number] RECD: 01/03/23 STATUS: ANA MARÍA [facility] NUM: [id number] AN: 12/29/22-[address] [facility] [address]: Chalino Benton MD ENTERED: 01/04/23 SP TYPE: Pap Smr OTHR DR: Tavo Beckman MD ORDERED: Pap Smear Interpretation Satisfactory for evaluation. Negative for intraepithelial lesion or malignancy. HPV mRNA E6/E7: NOT DETECTED This assay detects E6/E7 viral messenger RNA (mRNA) from 14 high-risk HPV types (16, 18, 31, 33, 35, 39, 45, 51, 52, 56, 58, 59, 66, 68) HPV testing performed by [employer], [place], [place]. See reference laboratory portion of the EMR for entire report. Clinical Information LMP: Postmenopausal Previous PAP test: 2021, ASCUS, HPV+ Material Received ThinPrep-Cervical Copies To: Tavo Beckman MD [address] [place] [address] [phone] Chalino Benton MD [address] [place], [place] [address]Roger [address] [address] ----- ------- Signed (signature on file) MANUEL Uriarte (ASCP) 01/13/23 1611 ----- ------- END OF REPORT Generic External Data Provider LAB CYTOLOGY NATHALIA GIBBONS Final Result [facility] [address] [place] [phone] * HPV E6/E7 RFLX OLGA 16 18/45 (11/11/2021 3:37 PM EDT) Pathologist [facility] HPV mRNA E6/E7 rflx Not Detected Not Detected [facility] Comment: Methodology: Support Associate-Mediated Amplification This assay detects E6/E7 viral messenger RNA (mRNA) from 14 high-risk HPV types (16,18,31,33,35,39,45,51,52,56,58,59,66,68). Cervical sources are required for HPV testing. If a vaginal source from a patient who has had a total hysterectomy with removal of cervix was submitted, please contact the testing laboratory for alternative testing options. For additional information, please refer to http://education.[employer]/faq/SKR811u9 (This link if provided for information/ educational purposes only.) THIS TEST WAS PERFORMED AT: [employer] [address] [place] [address],[place] [address] ELIZABETH ANDRES MD 11/11/2021 3:37 PM EDT Chalino Benton MD HISTORICAL/NON ORDERABLE LABS Fi nal Result Performing Organization Address City/[facility]/ZIP Co de Phone Number CONVERTED LEGACY [...] purpose. For additional information please refer to http://education.[employer]/faq/FKJ173 (This link is being provided for informational/ educational purposes only.) The performance of this assay has not been clinically validated in patients less than 2 years old. 10/17/2020 1:05 PM EDT Tavo Beckman MD LAB BLOOD ORDERABLES Fin al Result [facility] [address] from Last 3 Months or Most Recently Relevant to Health Maintenance Insurance [facility]SN [employer] [facility] Care Teams Lines Tender Relationship Specialty Start Date End Date Tavo Beckman MD [address] [place] [phone] PCP - General Family Medicine 12/27/17 Tommie A 06/29/24
--- OUTSIDE RECORDS SUMMARY | 2024-09-10 12:20 | XMS_ITS | Clinical Summary ---
Author Organization [facility] Address [address] [place] [address] Care Team Providers Care Thermoscrew Operator Name Role Phone Unavailable Primary Care [...] Upcoming Encounters Date Type Department Care Team ([facility] st Contact Info) Description 09/11/2024 4:20 PM EDT Office Visit [facility] [address] [place] [phone] Thaddeus Wright, [facility] [address] [place] [address] Health Maintenance Due Date Last Done Comments [...] 08/01/2023 Imm-Zoster, Recombinant (1 of 2) 08/01/2023 [id number] (1 - 2023- season) 2023 Alcohol and [...] Relevant to Health Maintenance Insurance HEALTH SAFETY [facility]
== END 2024-09-10 11:59 | disposition home or self-care (01) ==
LOC: HO.HBS 11:27
PROVIDERS: PCP Internal Medicine; Visit Provider Physician Assistant Surgical
DX: T81.49XA Infection following a procedure, other surgical site, initial encounter (principal)
CPT/HCPCS: 99024

== ENCOUNTER → 2024-09-10 11:27 | Outpatient (BNVA) | payer OTHER, SELFPAY | PROVIDERS: PCP Internal Medicine; Visit Provider Physician Assistant Surgical | DX: T81.49XA Infection following a procedure, other surgical site, initial encounter (principal) | CPT/HCPCS: 99212 ==

== ENCOUNTER 2024-09-11 14:48 | Outpatient (AMB) | payer OTHER, SELFPAY ==
[2024-09-11 15:14] VITALS: BP 116/68; PULSE 70; TEMP 36.2; O2SAT 95; BMI 26.5
--- NOTE | 2024-09-11 15:14 | MHC.OFFVISWM ---
VS Expanded 09/11/24 15:14 BP 116/68 Blood Pressure Location Rt brachial Blood Pressure Position Sitting Pulse 70 Pulse Source Pulse Oximeter Temp 97.2 F Temperature Source Temporal Artery Scan Pulse Oximetry 95 Oxygen Delivery Method Room Air Height 4 ft 11 in Weight 131 lb BMI 26.5 Body Fat % 29.8 Body Fat Mass 39.0 Fat Free Mass 92.0 Visceral Fat Rating 6.0 Body Water % 49.8 Body Water Mass 65.2 Muscle Mass/Score 87.4 Basal Metabolic Rate/Score 1,245 Intake Visit Reasons: OV Panniculectomy 06/28/24 Allergies No Known Allergies Allergy (Verified 08/31/24 14:01) Medication List - Last Reconciled 09/11/24 by TIFFANY Clay cholecalciferol (vitamin D3) 125 mcg PO DAILY docusate sodium (Colace) 100 mg PO DAILY iszxccdmonmu-eff-yxnc-FA-vit K 45 mg iron- 800 mcg-120 mcg (Bariatric Multivitamins) 1 cap PO DAILY ondansetron 4 mg PO Q6H PRN sennosides (senna) 17.2 mg (2 x 8.6 mg) PO BEDTIME PRN sulfamethoxazole-trimethoprim 800-160 mg (Bactrim DS) 1 tab PO BID 8 days HPI Comments Details: Patient is a 49-year-old female who returns to the office today in follow-up. She is status post panniculectomy on 06/28/2024. She developed postoperative abscess with subsequent dehiscence along the right lateral border and anterior. Today is day 26 of 28 of Bactrim for culture confirmed MRSA. She continues to have some purulent drainage from the midline opening, no drainage from the right side. She has been coming for daily dressing changes in the office on weekdays. She continues to follow her meal plan as directed by Dr. Monzon as well as wound care. She feels well, denies pain. COUNTS INCLUDE 234 BEDS AT THE [facility] Medical History (Updated 08/20/24 @ 13:35 by TIFFANY Fox) Excess skin History of vertigo Nephrolithiasis GERD (gastroesophageal reflux disease) Anxiety Depression BMI 39.0-39.9,adult Morbid obesity Right shoulder injury Left lateral epicondylitis Right shoulder tendonitis Carpal tunnel syndrome on both sides Normal vulvar exam Hemorrhoids Diverticulosis Tubular adenoma Encounter for screening colonoscopy Postmenopausal bleeding Well woman exam BENITO III (cervical intraepithelial neoplasia grade III) with severe dysplasia Carpal tunnel syndrome Acute arthritis Seasonal allergic rhinitis Surgical History S/P panniculectomy 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) Hx of colonoscopy (07/2021) Tubal ligation status Family History Mother HTN (hypertension) A-fib Arthritis Father Diabetes HTN (hypertension) Sister Lupus Social History Household Members: Spouse Housing: House Are you a primary manager intensive care unit to a significant other at home: No Do you presently have visiting nurse or other home services: No Alcohol intake: current Alcohol intake frequency: does not drink Patient Tobacco Use Status: Never used Tobacco service: No Current occupational status: employed 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 No drainage whatsoever. Wound bed is clean and pink. The midline opening had some minimal purulence on the iodoform packing. Small amount of purulence expressed with pressure. Maximum depth of 5cm at about 10 o'clock. The area was flushed with 50% hydrogen peroxide and 50% normal saline without difficulty. Previously noted induration appears improved. No tenderness during exam. Neuro General: patient oriented x3 Assessment & Plan Assessment & Plan (1) S/P laparoscopic sleeve gastrectomy: Onset Date: 10/2022 Code(s): Z98.84 - Bariatric surgery status Category: Surgical (2) S/P panniculectomy: Code(s): Z98.890 - Other specified postprocedural states Category: Surgical (3) Post-operative wound abscess: Code(s): T81.49XA - Infection following a procedure, other surgical site, initial encounter Category: Medical Plan Patient continues to show improvement. Today is day 26 of 28 of Bactrim DS 1 tab p.o. b.i.d. She continues the meal plan as directed by Dr. Monzon. No fevers at home. Return to the office tomorrow.
--- OUTSIDE RECORDS SUMMARY | 2024-09-11 15:21 | XMS_ITS | Clinical Summary ---
Author Organization [facility] ity Address [address] [place] [address] Care Team Providers Care Land Surveyor Manager Name Role Phone Unavailable Primary Care [...]
--- OUTSIDE RECORDS SUMMARY | 2024-09-11 15:21 | XMS_ITS | Clinical Summary ---
Author Organization [facility] Address [address] [place] [address] Care Team Providers Care Tenter Frame Back Tender Name Role Phone Unavailable Primary Care [...] Upcoming Encounters Date Type Department Care Team ([facility] st Contact Info) Description 09/11/2024 4:20 PM EDT Office Visit [facility] [address] [place] [phone] Thaddeus Wright, [facility] [address] [place] [address] Health Maintenance Due Date Last Done Comments [...] 08/01/2023 Imm-Zoster, Recombinant (1 of 2) 08/01/2023 [id number] (1 - 2023- season) 2023 Alcohol and [...] Relevant to Health Maintenance Insurance [facility]ALTH [facility]
--- OUTSIDE RECORDS SUMMARY | 2024-09-11 15:21 | XMS_ITS | Clinical Summary ---
Author Organization [employer] Address [address] [facility] [address] [place] [address] Care Team Providers Care Education Consultant Name Role Phone Tavo Beckman MD Primary Care Provider + Allergies No known active allergies Medications tiZANidine (Zanaflex) 4 MG capsuleIndicati ons:Acute pain of right shoulder Take 1 capsule (4 mg) by mouth 3 times daily. 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 Resolved Problems Problem Noted Date Diagnosed Date Resolved Date Obesity (BMI 30.0-34.9) 12/27/2022 110 05/2023 Assessment & Plan (12/27/2022 3:25 PM EST): Status Post bariatric surgery Significant decrease in BMI Continue Multivitamins Iron + zinc supplementation F/u [facility] obesity clinic F/u in 6 mos Morbid obesity 09/03/2011 12/12/2023 Overview (12/12/2023): Sp Laparoscopic sleeve gastrectomy on 11/04/22 at [facility] Assessment & Plan (06/16/2022 11:20 AM EDT): Discussed re weight reduction options including exercise, life style modifications, diet, referral to forestry support specialist. Discussed re lower calorie intake, increase dietary fiber I gave her information about weight management program for baritric surgery Encounters Date Type Department Care Team Description 09/06/2024 Results Follow-Up [facility] [address] [place] [phone] Tavo Beckman MD Gram Stain Result 08/22/2024 Orders Only [facility] External Provider, [facility] 08/21/2024 Orders Only GENERIC EXTERNAL DATA DEPARTMENT Provider, Generic External Data 08/13/2024 Orders Only GENERIC EXTERNAL DATA DEPARTMENT Provider, Generic External Data 07/18/2024 Orders Only [facility] [address] [place] [address] Tavo Beckman MD 06/28/2024 Orders Only GENERIC EXTERNAL DATA DEPARTMENT Provider, Generic External Data 06/26/2024 Orders Only GENERIC EXTERNAL DATA DEPARTMENT Provider, Generic External Data 06/22/2024 11:45 AM EDT Office Visit [facility] [address] [place] [address] Tavo Beckman MD Rheumatoid arthritis involving multiple sites with positive rheumatoid factor (CMS/HCC) (Primary Dx); Overweight; Benign essential HTN; Dietary counseling; Exercise counseling 06/22/2024 Travel 06/21/2024 Telephone [facility] [address] [place] [address] Tavo Beckman MD chart prep 06/15/2024 Patient Outreach [facility] [address] [place] [address] Tavo Beckman MD Pre-visit Planning (SDOH screening [...] AM EDT Narrative 08/22/2024 12:13 PM EDT [place] [address] [address] Scan Report Signed Patient: Serenity Gómez MR#: [id number] : 1975 Acct:[id number] Age/Sex: 49 / F ADM Date: 08/22/24 Loc: .CT Attending Dr: Ted ALLEN Ordering Physician: Ted Beauchamp Date of Service: 08/22/24 Procedure(s): CT abdomen pelvis wo IV con Accession Number(s): [id number] cc: Ted Beauchamp; Tavo Beckman MD Report Number: [id number]: Total DLP = 392.00 mGy-cm EXAMINATION: CT [...] 08/22/24 1210 DD/ 1127 TD/TT: 08/22/24 1150 Handle Maker: Procedure Note Donotuseinterpreter, Image - 08/22/[address] [address] [address] Scan Report Signed Patient: Serenity Gómez MMR#: [id number] : 1975Acct:[id number] Age/Sex: 49 / FADM Date: 08/22/24 Loc: HO.CT Attending Dr: Ted ALLEN Ordering Physician: Ted Beauchamp Date of Service: 08/22/24 Procedure(s): CT abdomen pelvis wo IV con Accession Number(s): [id number] cc: Ted Beauchamp; Tavo Beckman MD Report Number: [id number]: Total DLP = 392.00 mGy-cm EXAMINATION: CT [...] 08/22/24 1210 DD/ 1127 TD/TT: 08/22/24 1150 Handle Maker: [facility] External Provider IMG CT PROCEDURES Final Result * (ABNORMAL) CBC auto differential (08/21/2024 9:32 AM EDT) White Blood Count 12.7(H) 4.8 - 10.8 X10*3/uL [facility] Red Blood Count 3.95(L) 4.20 - 5.50 X10*6/uL [facility] Hemoglobin 11.6(L) 12.0 - 16.0 g/dl [facility] Hematocrit 34.8(L) 37.0 - 47.0 % [facility] Mean Corpuscular Volume 88.1 80.0 - 98.0 fL [facility] Mean Corpuscular Hemoglobin 29.4 27.0 - 33.0 pg [facility] Mean Corpuscular HGB Conc 33.3 31.0 - 35.0 g/dl [facility] Red Cell Distribution Width 11.8 11.0 - 16.0 % [facility] Platelet Count 311 160 - 400 X10*3/uL [facility] Mean Platelet Volume 9.4 9.4 - 12.3 fL [facility] Neutrophils Percent Auto 73.1(H) 45 - 73 % [facility] Imm Gran Pct Auto 0.4 0.0 - 0.4 % [facility] Lymphocytes Percent Auto 16.8(L) 20 - 40 % [facility] Monocytes Percent Auto 9.1 2 - 11 % [facility] Eosinophils Percent Auto 0.4 0 - 4 % [facility] Basophils Percent Auto 0.2 0 - 2 % [facility] NRBC Pct Auto 0.0 0.0 - 0.2 /100WBC [facility] Neutrophils Absolute Auto 9.3(H) 2.0 - 8.3 x10*3/uL [facility] Imm Gran Abs Auto 0.05(H) 0.00 - 0.03 X10*3/uL [facility] Lymphocytes Absolute Auto 2.1 1.2 - 4.9 X10*3/uL [facility] Monocytes Absolute Auto 1.2 0.1 - 1.2 X10*3/uL [facility] Eosinophils Absolute Auto 0.1 0.0 - 0.4 X10*3/uL [facility] Basophils Absolute Auto 0.0 0.0 - 0.2 X10*3/uL [facility] NRBC Abs Auto 0.000 0.0 - 0.012 X10*3/uL [facility] 08/21/2024 9:32 AM EDT 08/21/2024 9:32 AM EDT us Generic External Data Provider LAB BLOOD ORDERAB LES Final Result Performing Organization Address City/[facility]/ZIP Co de Phone Number [facility] [address] [place] [address] [phone] * Gram Stain Result (08/13/2024 2:00 PM EDT) 08/13/2024 2:00 PM EDT 08/13/2024 2:20 PM EDT Comment:Abdomen Narrative [facility] - 08/16/2024 8:01 AM EDT [...] DERABLE LABS Final Result Performing Organization Address [facility] Co de Phone Number [facility] [address] [place] [phone] * BI Mammogram Screening Tomosynthesis Bilateral (07/18/2024 12:10 PM EDT) Anatomical Region Laterality Modality Breast Bilateral Mammography 07/18/2024 12:1 0 PM EDT Narrative 07/27/2024 1:14 PM EDT [address] [place] [address] Mammography Report Signed Patient: Serenity Gómez MR#: [id number] : 1975 Acct:[id number] Age/Sex: 48 / F ADM Date: 07/18/24 Loc: HO.MAMMO Attending Dr: Tavo Beckman MD Ordering Physician: Tavo Beckman MD Results: 1Ne gative Date of Service: 07/18/24 Follow Up: 1 Year From Orig ina Mammogram Procedure(s): MM tomosynthesis screening BI Accession Number(s): [id number] cc: Tavo Beckman MD EXAMINATION: MM SCREENING [...] 07/27/24 1311 DD/ 1210 TD/TT: 07/18/24 1230 Handle Maker: Procedure Note Donotuseinterpreter, Image - 07/27/2024 [facility] [address] [place] [address] Mammography Report Signed Patient: Serenity Gómez MMR#: [id number] : 1975Acct:[id number] Age/Sex: 48 / FADM Date: 07/18/24 Loc: HO.MAMMO Attending Dr: Tavo Beckman MD Ordering Physician: Tavo Beckman MDResults: 1Ne gative Date of Service: 07/18/24Follow Up: 1 Year From Orig ina Mammogram Procedure(s): MM tomosynthesis screening BI Accession Number(s): [id number] cc: Tavo Beckman MD EXAMINATION: MM SCREENING [...] 07/27/24 1311 DD/ 1210 TD/TT: 07/18/24 1230 Handle Maker: us Tavo Beckman MD IMG BI PROCEDURES Final Result * Gross and Microscopic Level 3 (06/28/2024 12:08 PM EDT) 06/28/2024 12:0 8 PM EDT 06/28/2024 2:20 PM EDT [facility] - 06/29/2024 4:30 PM EDT ----- ------- Name: Serenity Gómez Age/Sex: 48/F : 1975 Unit#: [id number] Attend Dr: Roel Monzon MD Re06/28/24 Status: [facility] Location: [facility] Disch: ----- ------- SPEC : [id number] RECD: 06/28/24-1420 [facility] NUM: [id number] AN: 06/28/24-[address]: Roel Monzon MD ENTERED: 06/28/24-8153 SP TYPE: Surgical OTHR DR: Tavo Beckman [...] distinct cysts, lesions or nodules are identified. Special Needs Teacher sections are submitted in cassettes A1-A3. CEDS IHC S/NG Disclaimer NOTE: Unless otherwise stated, all tissue is formalin-fixed and paraffin-embedded. Some or all of the immunohistochemical tests reported herein may have been developed and their performance characteristics determined by [facility]. They have not been cleared or approved by the U.S. Food and Drug Administration (FDA). However, the FDA has determined that such clearance or approval is not necessary. This laboratory is certified under the Clinical Laboratory Improvement Amendments of 1988 (CLIA) as qualified to perform high complexity clinical laboratory testing. Copies To: Tavo Beckman MD [address] [id number] CONTINUED ON NEXT PAGE ----- ------- Name: Serenity Gómez Age/Sex: 48/F : 1975 Unit#: [id number] Attend Dr: Roel Monzon MD Re06/28/24 Status: [facility] Location: [facility] Disch: ----- ------- SPEC : [id number] RECD: 06/28/24-1420 STATUS: ANA MARÍA [facility] NUM: [id number] AN: 06/28/24-[address]: Roel Monzon MD ENTERED: 06/28/24-7867 SP TYPE: Surgical OTHR DR: Tavo Beckman MD ORDERED: Gross Micro L3 Copies To: (Continued) Roel Monzon MD [facility] Management Program [address] [place] [phone] ----- ------- Signed (signature on file) Guillermina Wakefield MD 06/29/24 1630 ----- ------- END OF REPORT Generic External Data Provider LAB CYTOLOGY ORDMary RABDAVID Final Result Performing Organization Address [facility]/ZIP Co de Phone Number [facility] [address] [place] [address] [phone] * Type and screen (06/26/2024 10:45 AM EDT) Blood Type AP [facility] Antibody Screen NEGATIVE [facility] 06/26/2024 10:4 5 AM EDT 06/26/2024 11:00 AM EDT Narrative [facility] - 06/26/2024 11:37 AM EDT witnessed by Gerson:Call Blood Bank (ext. [phone]) to band patient on admission.Type and Screen in effect until 2300 on 06-28-2024 Generic External Data Provider LAB BLOOD BANK TE ST ORDERABLES Final Result Performing Organization Address [facility]/ZIP Co de Phone Number [facility] [address] [place] [address] [phone] * (ABNORMAL) Lipid Panel, Standard (02/24/2024 8:29 AM EST) Triglycerides 61 <150 mg/dL [facility] Comment:Desirable Triglyceri de: less than 150 mg/dLBorderline High Triglyceride 150-199 mg/dLHigh Triglyceride: 200-499 mg/dLVery High Triglyceride: greater than or equal to 5OO mg/dL Cholesterol 187 <200 mg/dL [facility] Comment:Desirable Cholestero l: less than 200 mg/dLBorderline High Cholesterol: 200-239 mg/dLHigh Cholesterol: greater than 239 mg/dL LDL Cholesterol Calculated 110(H) <100 mg/dL [facility] Comment:Desirable LDL: less than 100 mg/dLNear Optimal/Above Optimal LDL: 110- 129 mg/dLBorderline High LDL: 130-159 mg/dLHigh LDL: 160-189 mg/dLVery High LDL: greater than or equal to 190 mg/dL HDL Cholesterol 65 >40 mg/dL [facility] Comment:Desirable HDL: great er than 40 mg/dL Note: This HDL assay may give artificially low results in patients with liver disease. 02/24/2024 8:29 AM EST 02/24/2024 8:29 AM EST us Generic External Data Provider LAB BLOOD ORDERAB LES Final Result [facility] [address] [place] [phone] * Pap Smear (12/29/2022 2:49 PM EST) 12/29/2022 2:49 PM EST 01/03/2023 7:00 AM EST Narrative [facility] - 01/13/2023 4:11 PM EST ----- ------- Name: Serenity Gómez Age/Sex: 47/F : 1975 Unit#: [id number] Attend Dr: Chalino Benton MD Re12/29/22 Status: DEP REF Location: [facility] Disch: ----- ------- SPEC : [id number] RECD: 01/03/23 STATUS: ANA MARÍA [facility] NUM: [id number] AN: 12/29/22-[address] [facility] [address]: Chalino Benton MD ENTERED: 01/04/23 [...] 59, 66, 68) HPV testing performed by [facility], [place], [place]. See reference laboratory portion of the EMR for entire report. Clinical Information LMP: Postmenopausal Previous PAP test: 2021, ASCUS, HPV+ Material Received ThinPrep-Cervical Copies To: Tavo Beckman MD [address] [place] [address] [phone] Chalino Benton MD [address] [place], [place] [address] [address] ----- ------- Signed (signature on file) MANUEL Uriarte (ASCP) 01/13/23 1611 ----- ------- END OF REPORT Generic External Data Provider LAB CYTOLOGY NATHALIA GIBBONS Final Result [facility] [address] [place] [phone] * HPV E6/E7 RFLX OLGA 16 18/45 (11/11/2021 3:37 PM EDT) Pathologist [facility] [place] HPV mRNA E6/E7 rflx Not Detected Not Detected [facility] Comment: Methodology: Lot Associate-Mediated Amplification This assay detects E6/E7 viral messenger RNA (mRNA) from 14 high-risk HPV types (16,18,31,33,35,39,45,51,52,56,58,59,66,68). Cervical sources are required for HPV testing. If a vaginal source from a patient who has had a total hysterectomy with removal of cervix was submitted, please contact the testing laboratory for alternative testing options. For additional information, please refer to http://education.Outside.in.Skycross/faq/GZS869k1 (This link if provided for information/ educational purposes only.) THIS TEST WAS PERFORMED AT: [facility] [address] [place] [address],[place] [address] ELIZABETH ANDRES MD 11/11/2021 3:37 PM EDT Chalino Benton MD HISTORICAL/NON ORDERABLE LABS Fi nal Result Performing Organization Address City/[facility]/ZIP Co de Phone Number [facility] * Hm Colonoscopy (07/08/2021 9:47 AM EDT) Historical Provider HEALTH MAINTENANCE Final Result * HIV 1/2 ANTIGEN/ANTIBODY,FOURTH GENERATION W/RFL (10/17/2020 1:05 PM EDT) HIV-1/2 ANTIGEN AND ANTIBODIES, 4TH GENERATION W/ REFLEX NON-REACT ELENA NON-REACT ELENA [facility] Comment: HIV-1 antigen and [...] purpose. For additional information please refer to http://education.Outside.in.Skycross/faq/UFP611 (This link is being provided for informational/ educational purposes only.) The performance of this assay has not been clinically validated in patients less than 2 years old. 10/17/2020 1:05 PM EDT Tavo Beckman MD LAB BLOOD ORDERABLES Fin al Result [facility] [address] from Last 3 Months or Most Recently Relevant to Health Maintenance Insurance [employer] [facility] Care Teams Education Consultant Relationship Specialty Start Date End Date Tavo Beckman MD [address] [place] [phone] PCP - General Family Medicine 12/27/17 Tommie A 06/29/24
== END 2024-09-11 15:34 | disposition home or self-care (01) ==
LOC: HO.HBS 14:48
PROVIDERS: PCP Internal Medicine; Visit Provider Physician Assistant Surgical
DX: T81.49XA Infection following a procedure, other surgical site, initial encounter (principal); Z98.84 Bariatric surgery status
CPT/HCPCS: 99024

== ENCOUNTER → 2024-09-11 14:48 | Outpatient (BNVA) | payer OTHER, SELFPAY | PROVIDERS: PCP Internal Medicine; Visit Provider Physician Assistant Surgical | DX: T81.49XA Infection following a procedure, other surgical site, initial encounter (principal); Z98.890 Other specified postprocedural states | CPT/HCPCS: 99212 ==

== ENCOUNTER 2024-09-12 13:55 | Outpatient (AMB) | payer OTHER, SELFPAY ==
--- OUTSIDE RECORDS SUMMARY | 2024-09-11 16:20 | XMS_ITS | Encounter Summary ---
Author Organization [facility] Address [address] [place] [address] Care Team Providers Care Machine Splitter Name Role Phone Unavailable Primary Care Provider Unavailabl e Encounter Details Date Type Department Care Team (Late st Contact Info) Description 09/11/2024 4:20 PM EDT Office Visit [facility] [address] [place] [phone] Thaddeus Wright, [facility] [address] [place] [address] Social History Tobacco Use Types Packs/Day Years [...] this encounter Progress Notes * Thaddeus Wright, [facility] - 09/11/2024 4:52 PM EDT Prophy, 4 bwx, Exam - Adult Subjective Serenity Barrera, 49 year old female, presents alone for Recall exam. Call Out Clerk: Yes: Namibian No chief complaint on file. Objective RMHx: [...] Behavior: Excellent Prophy completed via ultrasonic, handscale, frisian and floss NV: Recall Exam - 6 [...] Description 03/15/2025 3:40 PM EST Office Visit [facility] [address] [place] [address] [place] [address] documented as of this encounter Procedures Procedure [...]
--- OUTSIDE RECORDS SUMMARY | 2024-09-12 14:27 | XMS_ITS | Clinical Summary ---
Author Organization [employer] Address [address] [facility] [address] [place] [address] Care Team Providers Care Clerk Rating Name Role Phone Tavo Beckman MD Primary Care Provider + Allergies No known active allergies Medications tiZANidine (Zanaflex) 4 MG capsuleIndicati ons:Acute pain of right shoulder Take 1 capsule (4 mg) by mouth 3 times daily. 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 Resolved Problems Problem Noted Date Diagnosed Date Resolved Date Obesity (BMI 30.0-34.9) 12/27/2022 110 05/2023 Assessment & Plan (12/27/2022 3:25 PM EST): Status Post bariatric surgery Significant decrease in BMI Continue Multivitamins Iron + zinc supplementation F/u [facility] obesity clinic F/u in 6 mos Morbid obesity 09/03/2011 12/12/2023 Overview (12/12/2023): Sp Laparoscopic sleeve gastrectomy on 11/04/22 at [facility] Assessment & Plan (06/16/2022 11:20 AM EDT): Discussed re weight reduction options including exercise, life style modifications, diet, referral to product specialist. Discussed re lower calorie intake, increase dietary fiber I gave her information about weight management program for baritric surgery Encounters Date Type Department Care Team Description 09/06/2024 Results Follow-Up [facility] [address] [place] [phone] Tavo Beckman MD Gram Stain Result 08/22/2024 Orders Only [facility] External Provider, [facility] 08/21/2024 Orders Only GENERIC EXTERNAL DATA DEPARTMENT Provider, Generic External Data 08/13/2024 Orders Only GENERIC EXTERNAL DATA DEPARTMENT Provider, Generic External Data 07/18/2024 Orders Only [facility] [address] [place] [address] Tavo Beckman MD 06/28/2024 Orders Only GENERIC EXTERNAL DATA DEPARTMENT Provider, Generic External Data 06/26/2024 Orders Only GENERIC EXTERNAL DATA DEPARTMENT Provider, Generic External Data 06/22/2024 11:45 AM EDT Office Visit [facility] [address] [place] [address] Tavo Beckman MD Rheumatoid arthritis involving multiple sites with positive rheumatoid factor (CMS/HCC) (Primary Dx); Overweight; Benign essential HTN; Dietary counseling; Exercise counseling 06/22/2024 Travel 06/21/2024 Telephone [facility] [address] [place] [address] Tavo Beckman MD chart prep 06/15/2024 Patient Outreach [facility] [address] [place] [address] Tavo Beckman MD Pre-visit Planning (SDOH screening [...] AM EDT Narrative 08/22/2024 12:13 PM EDT [place] [address] [address] Scan Report Signed Patient: Serenity Gómez MR#: [id number] : 1975 Acct:[id number] Age/Sex: 49 / F ADM Date: 08/22/24 Loc: .CT Attending Dr: Ted ALLEN Ordering Physician: Ted Beauchamp Date of Service: 08/22/24 Procedure(s): CT abdomen pelvis wo IV con Accession Number(s): [id number] cc: Ted Beauchamp; Tavo Beckman MD Report Number: [id number]: Total DLP = 392.00 mGy-cm EXAMINATION: CT [...] 08/22/24 1210 DD/ 1127 TD/TT: 08/22/24 1150 Earth Science Teacher: Procedure Note Donotuseinterpreter, Image - 08/22/[address] [address] [address] Scan Report Signed Patient: Serenity Gómez MMR#: [id number] : 1975Acct:[id number] Age/Sex: 49 / FADM Date: 08/22/24 Loc: HO.CT Attending Dr: Ted ALLEN Ordering Physician: Ted Beauchamp Date of Service: 08/22/24 Procedure(s): CT abdomen pelvis wo IV con Accession Number(s): [id number] cc: Ted Beauchamp; Tavo Beckman MD Report Number: [id number]: Total DLP = 392.00 mGy-cm EXAMINATION: CT [...] 08/22/24 1210 DD/ 1127 TD/TT: 08/22/24 1150 Earth Science Teacher: [facility] External Provider IMG CT PROCEDURES Final Result * (ABNORMAL) CBC auto differential (08/21/2024 9:32 AM EDT) White Blood Count 12.7(H) 4.8 - 10.8 X10*3/uL [facility] Red Blood Count 3.95(L) 4.20 - 5.50 X10*6/uL [facility] Hemoglobin 11.6(L) 12.0 - 16.0 g/dl [facility] Hematocrit 34.8(L) 37.0 - 47.0 % [facility] Mean Corpuscular Volume 88.1 80.0 - 98.0 fL [facility] Mean Corpuscular Hemoglobin 29.4 27.0 - 33.0 pg [facility] Mean Corpuscular HGB Conc 33.3 31.0 - 35.0 g/dl [facility] Red Cell Distribution Width 11.8 11.0 - 16.0 % [facility] Platelet Count 311 160 - 400 X10*3/uL [facility] Mean Platelet Volume 9.4 9.4 - 12.3 fL [facility] Neutrophils Percent Auto 73.1(H) 45 - 73 % [facility] Imm Gran Pct Auto 0.4 0.0 - 0.4 % [facility] Lymphocytes Percent Auto 16.8(L) 20 - 40 % [facility] Monocytes Percent Auto 9.1 2 - 11 % [facility] Eosinophils Percent Auto 0.4 0 - 4 % [facility] Basophils Percent Auto 0.2 0 - 2 % [facility] NRBC Pct Auto 0.0 0.0 - 0.2 /100WBC [facility] Neutrophils Absolute Auto 9.3(H) 2.0 - 8.3 x10*3/uL [facility] Imm Gran Abs Auto 0.05(H) 0.00 - 0.03 X10*3/uL [facility] Lymphocytes Absolute Auto 2.1 1.2 - 4.9 X10*3/uL [facility] Monocytes Absolute Auto 1.2 0.1 - 1.2 X10*3/uL [facility] Eosinophils Absolute Auto 0.1 0.0 - 0.4 X10*3/uL [facility] Basophils Absolute Auto 0.0 0.0 - 0.2 X10*3/uL [facility] NRBC Abs Auto 0.000 0.0 - 0.012 X10*3/uL [facility] 08/21/2024 9:32 AM EDT 08/21/2024 9:32 AM EDT us Generic External Data Provider LAB BLOOD ORDERAB LES Final Result Performing Organization Address City/[facility]/ZIP Co de Phone Number [facility] [address] [place] [address] [phone] * Gram Stain Result (08/13/2024 2:00 PM EDT) 08/13/2024 2:00 PM EDT 08/13/2024 2:20 PM EDT Comment:Abdomen Narrative [facility] - 08/16/2024 8:01 AM [...] DERABLE LABS Final Result Performing Organization Address [facility] Co de Phone Number [facility] [address] [place] [phone] * BI Mammogram Screening Tomosynthesis Bilateral (07/18/2024 12:10 PM EDT) Anatomical Region Laterality Modality Breast Bilateral Mammography 07/18/2024 12:1 0 PM EDT Narrative 07/27/2024 1:14 PM EDT [address] [place] [address] Mammography Report Signed Patient: Serenity Gómez MR#: [id number] : 1975 Acct:[id number] Age/Sex: 48 / F ADM Date: 07/18/24 Loc: HO.MAMMO Attending Dr: Tavo Beckman MD Ordering Physician: Tavo Beckman MD Results: 1Ne gative Date of Service: 07/18/24 Follow Up: 1 Year From Orig ina Mammogram Procedure(s): MM tomosynthesis screening BI Accession Number(s): [id number] cc: Tavo Beckman MD EXAMINATION: MM SCREENING [...] Grayson DO Signed By: <Electronically signed by Edtih Grayson DO in OV> 07/27/24 1311 DD/ 1210 TD/TT: 07/18/24 1230 Earth Science Teacher: Procedure Note Donotuseinterpreter, Image - 07/27/20[facility] [address] [place] [address] Mammography Report Signed Patient: Serenity Gómez MMR#: [id number] : 1975Acct:[id number] Age/Sex: 48 / FADM Date: 07/18/24 Loc: HO.MAMMO Attending Dr: Tavo Beckman MD Ordering Physician: Tavo Beckman MDResults: 1Ne gative Date of Service: 07/18/24Follow Up: 1 Year From Orig ina Mammogram Procedure(s): MM tomosynthesis screening BI Accession Number(s): [id number] cc: Tavo Beckman MD EXAMINATION: MM SCREENING [...] 07/27/24 1311 DD/ 1210 TD/TT: 07/18/24 1230 Earth Science Teacher: us Tavo Beckman MD IMG BI PROCEDURES Final Result * Gross and Microscopic Level 3 (06/28/2024 12:08 PM EDT) 06/28/2024 12:0 8 PM EDT 06/28/2024 2:20 PM EDT [facility] - 06/29/2024 4:30 PM EDT ----- ------- Name: Serenity Gómez Age/Sex: 48/F : 1975 Unit#: [id number] Attend Dr: Roel Monzon MD Re06/28/24 Status: [facility] Location: [facility] Disch: ----- ------- SPEC : [id number] RECD: 06/28/24-1420 [facility] NUM: [id number] AN: 06/28/24-[address]: Roel Monzon MD ENTERED: 06/28/24-7560 SP TYPE: Surgical OTHR DR: Tavo Beckman [...] distinct cysts, lesions or nodules are identified. Drum Carrier sections are submitted in cassettes A1-A3. CEDS IHC S/NG Disclaimer NOTE: Unless otherwise stated, all tissue is formalin-fixed and paraffin-embedded. Some or all of the immunohistochemical tests reported herein may have been developed and their performance characteristics determined by [facility]. They have not been cleared or approved by the U.S. Food and Drug Administration (FDA). However, the FDA has determined that such clearance or approval is not necessary. This laboratory is certified under the Clinical Laboratory Improvement Amendments of 1988 (CLIA) as qualified to perform high complexity clinical laboratory testing. Copies To: Tavo Beckman MD [address] [id number] CONTINUED ON NEXT PAGE ----- ------- Name: Serenity Gómez Age/Sex: 48/F : 1975 Unit#: [id number] Attend Dr: Roel Monzon MD Re06/28/24 Status: [facility] Location: [facility] Disch: ----- ------- SPEC : [id number] RECD: 06/28/24-1420 STATUS: ANA MARÍA [facility] NUM: [id number] AN: 06/28/24-[address]: Roel Monzon MD ENTERED: 06/28/24-6278 SP TYPE: Surgical OTHR DR: Tavo Beckman MD ORDERED: Gross Micro L3 Copies To: (Continued) Roel Monzon MD [facility] Weight Management Program [address] [place] [phone] ----- ------- Signed (signature on file) Guillermina Wakefield MD 06/29/24 1630 ----- ------- END OF REPORT Generic External Data Provider LAB CYTOLOGY ORDMary RABDAVID Final Result Performing Organization Address [facility]/ZIP Co de Phone Number [facility] [address] [place] [address] [phone] * Type and screen (06/26/2024 10:45 AM EDT) Blood Type AP [facility] Antibody Screen NEGATIVE [facility] 06/26/2024 10:4 5 AM EDT 06/26/2024 11:00 AM EDT Narrative [facility] - 06/26/2024 11:37 AM EDT witnessed by Gerson:Call Blood Bank (ext. [phone]) to band patient on admission.Type and Screen in effect until 2300 on 06-28-2024 Generic External Data Provider LAB BLOOD BANK TE ST ORDERABLES Final Result Performing Organization Address [facility]/ZIP Co de Phone Number [facility] [address] [place] [address] [phone] * (ABNORMAL) Lipid Panel, Standard (02/24/2024 8:29 AM EST) Triglycerides 61 <150 mg/dL [facility] Comment:Desirable Triglyceri de: less than 150 mg/dLBorderline High Triglyceride 150-199 mg/dLHigh Triglyceride: 200-499 mg/dLVery High Triglyceride: greater than or equal to 5OO mg/dL Cholesterol 187 <200 mg/dL [facility] Comment:Desirable Cholestero l: less than 200 mg/dLBorderline High Cholesterol: 200-239 mg/dLHigh Cholesterol: greater than 239 mg/dL LDL Cholesterol Calculated 110(H) <100 mg/dL [facility] Comment:Desirable LDL: less than 100 mg/dLNear Optimal/Above Optimal LDL: 110- 129 mg/dLBorderline High LDL: 130-159 mg/dLHigh LDL: 160-189 mg/dLVery High LDL: greater than or equal to 190 mg/dL HDL Cholesterol 65 >40 mg/dL [facility] Comment:Desirable HDL: great er than 40 mg/dL Note: This HDL assay may give artificially low results in patients with liver disease. 02/24/2024 8:29 AM EST 02/24/2024 8:29 AM EST us Generic External Data Provider LAB BLOOD ORDERAB LES Final Result [facility] [address] [place] [phone] * Pap Smear (12/29/2022 2:49 PM EST) 12/29/2022 2:49 PM EST 01/03/2023 7:00 AM EST Narrative [facility] - 01/13/2023 4:11 PM EST ----- ------- Name: Serenity Gómez Age/Sex: 47/F : 1975 Unit#: [id number] Attend Dr: Chalino Benton MD Re12/29/22 Status: DEP REF Location: [facility] Disch: ----- ------- SPEC : [id number] RECD: 01/03/23 STATUS: ANA MARÍA [facility] NUM: [id number] AN: 12/29/22-1448 [facility] DR: Chalino Benton MD ENTERED: [...] 59, 66, 68) HPV testing performed by [facility], [place], [place]. See reference laboratory portion of the EMR for entire report. Clinical Information LMP: Postmenopausal Previous PAP test: 2021, ASCUS, HPV+ Material Received ThinPrep-Cervical Copies To: Tavo Beckman MD [address] [place] [address] [phone] Chalino Benton MD [address] [place], [place] [phone] [address] [address] ----- ------- Signed (signature on file) MANUEL Uriarte (ASCP) 01/13/23 1611 ----- ------- END OF REPORT Generic External Data Provider LAB CYTOLOGY NATHALIA GIBBONS Final Result [facility] [address] [place] [phone] * HPV E6/E7 RFLX OLGA 16 18/45 (11/11/2021 3:37 PM EDT) Pathologist [facility] HPV mRNA E6/E7 rflx Not Detected Not Detected [facility] Comment: Methodology: Scarfer-Mediated Amplification This assay detects E6/E7 viral messenger RNA (mRNA) from 14 high-risk HPV types (16,18,31,33,35,39,45,51,52,56,58,59,66,68). Cervical sources are required for HPV testing. If a vaginal source from a patient who has had a total hysterectomy with removal of cervix was submitted, please contact the testing laboratory for alternative testing options. For additional information, please refer to http://education.3rdKind.bookletmobile/faq/GOH878j3 (This link if provided for information/ educational purposes only.) THIS TEST WAS PERFORMED AT: [facility] [address] [place] [address],[place] [address] ELIZABETH ANDRES MD 11/11/2021 3:37 PM EDT Chalino Benton MD HISTORICAL/NON ORDERABLE LABS Fi nal Result Performing Organization Address City/[facility]/ZIP Co de Phone Number [facility] [...] purpose. For additional information please refer to http://education.3rdKind.bookletmobile/faq/MVQ047 (This link is being provided for informational/ educational purposes only.) The performance of this assay has not been clinically validated in patients less than 2 years old. 10/17/2020 1:05 PM EDT Tavo Beckman MD LAB BLOOD ORDERABLES Fin al Result [facility] [address] from Last 3 Months or Most Recently Relevant to Health Maintenance Insurance HSN PARTIAL [facility] Care Teams Clerk Rating Relationship Specialty Start Date End Date Tavo Beckman MD [address] [place] [phone] PCP - General Family Medicine 12/27/17 Tommie A 06/29/24
--- OUTSIDE RECORDS SUMMARY | 2024-09-12 14:27 | XMS_ITS | Clinical Summary ---
Author Organization [employer] [facility] ity Address [address] [place] [address] Care Team Providers Care Janitor Head Name Role Phone Unavailable Primary Care Provider [...]
[2024-09-12 14:40] VITALS: BP 108/67; PULSE 73; TEMP 35.8; O2SAT 96; BMI 26.2
--- NOTE | 2024-09-12 14:40 | MHC.OFFVISWM ---
VS Expanded 09/12/24 14:40 BP 108/67 Blood Pressure Location Rt brachial Blood Pressure Position Sitting Pulse 73 Pulse Source Pulse Oximeter Temp 96.5 F L Temperature Source Temporal Artery Scan Pulse Oximetry 96 Oxygen Delivery Method Room Air Height 4 ft 11 in Weight 129 lb 9.6 oz BMI 26.2 Body Fat % 30.7 Body Fat Mass 39.6 Fat Free Mass 89.8 Visceral Fat Rating 6.0 Body Water % 49.2 Body Water Mass 63.8 Muscle Mass/Score 85.0 Basal Metabolic Rate/Score 1,221 Intake Visit Reasons: OV Panniculectomy 06/28/24 Allergies No Known Allergies Allergy (Verified 08/31/24 14:01) HPI Comments Details: Pleasant 49-year-old female returns to the office today. She is status post panniculectomy on 06/28/2024. She is on day 27 of Bactrim DS 1 tab p.o. b.i.d.. No complaints PFSH Medical History (Updated 08/20/24 @ 13:35 by TIFFANY Fox) Excess skin History of vertigo Nephrolithiasis GERD (gastroesophageal reflux disease) Anxiety Depression BMI 39.0-39.9,adult Morbid obesity Right shoulder injury Left lateral epicondylitis Right shoulder tendonitis Carpal tunnel syndrome on both sides Normal vulvar exam Hemorrhoids Diverticulosis Tubular adenoma Encounter for screening colonoscopy Postmenopausal bleeding Well woman exam BENITO III (cervical intraepithelial neoplasia grade III) with severe dysplasia Carpal tunnel syndrome Acute arthritis Seasonal allergic rhinitis Surgical History S/P panniculectomy 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) Hx of colonoscopy (07/2021) Tubal ligation status Family History Mother HTN (hypertension) A-fib Arthritis Father Diabetes HTN (hypertension) Sister Lupus Social History Household Members: Spouse Housing: House Are you a primary long term acute care registered nurse to a significant other at home: No Do you presently have visiting nurse or other home services: No Alcohol intake: current Alcohol intake frequency: does not drink Patient Tobacco Use Status: Never used Tobacco service: No Current occupational status: employed 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 Midline area probed with Kellys, flushed with 50% hydrogen peroxide and 50% normal saline. Packed with 1/4 inch iodoform packing Assessment & Plan Assessment & Plan (1) Post-operative wound abscess: Code(s): T81.49XA - Infection following a procedure, other surgical site, initial encounter Category: Medical Plan: Continue current treatment plans. Return to office tomorrow
== END 2024-09-13 09:44 | disposition home or self-care (01) ==
LOC: HO.HBS 13:56
PROVIDERS: PCP Internal Medicine; Visit Provider Physician Assistant Surgical
DX: T81.49XA Infection following a procedure, other surgical site, initial encounter (principal)
CPT/HCPCS: 99024

== ENCOUNTER → 2024-09-12 13:55 | Outpatient (BNVA) | payer OTHER, SELFPAY | PROVIDERS: PCP Internal Medicine; Visit Provider Physician Assistant Surgical | DX: T81.49XA Infection following a procedure, other surgical site, initial encounter (principal); Z90.3 Acquired absence of stomach [part of] | CPT/HCPCS: 99212 ==

== ENCOUNTER 2024-09-13 14:33 | Outpatient (AMB) | payer OTHER, SELFPAY ==
--- OUTSIDE RECORDS SUMMARY | 2024-09-11 16:20 | XMS_ITS | Encounter Summary ---
Author Organization [facility] Address [address] [place] [address] Care Team Providers Care Room Service Bellhop Name Role Phone Unavailable Primary Care Provider Unavailabl e Encounter Details Date Type Department Care Team (Late st Contact Info) Description 09/11/2024 4:20 PM EDT Office Visit [facility] [address] [place] [phone] Thaddeus Wright, [facility] [address] [place] [address] Social History Tobacco Use Types Packs/Day Years [...] this encounter Progress Notes * Thaddeus Wright, [facility] - 09/11/2024 4:52 PM EDT Prophy, 4 bwx, Exam - Adult Subjective Serenity Barrera, 49 year old female, presents alone for Recall exam. Java Developer Architect: Yes: Belizean No chief complaint on file. Objective RMHx: [...] - ORAL CANCER SCREENING (Completed) Service provider: Tahddeus Wright RDH Billing provider: Song Griffith DDS [...] Behavior: Excellent Prophy completed via ultrasonic, handscale, divehi and floss NV: Recall Exam - 6 [...] Description 03/15/2025 3:40 PM EST Office Visit [facility] [address] [place] [address] [place] [address] documented as of this encounter Procedures Procedure [...]
--- OUTSIDE RECORDS SUMMARY | 2024-09-13 14:36 | XMS_ITS | Clinical Summary ---
Author Organization [employer] [facility] ity Address [address] [place] [address] Care Team Providers Care Clinical Research Manager Name Role Phone Unavailable Primary Care [...]
--- OUTSIDE RECORDS SUMMARY | 2024-09-13 14:36 | XMS_ITS | Clinical Summary ---
Author Organization [employer] Address [address] [facility] [address] [place] [address] Care Team Providers Care Efficiency Manager Name Role Phone Tavo Beckman MD Primary Care Provider + Allergies No known active allergies Medications tiZANidine (Zanaflex) 4 MG capsuleIndicati ons:Acute pain of right shoulder Take 1 capsule (4 mg) by mouth 3 times daily. 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 Resolved Problems Problem Noted Date Diagnosed Date Resolved Date Obesity (BMI 30.0-34.9) 12/27/202205/2023 Assessment & Plan (12/27/2022 3:25 PM EST): Status Post bariatric surgery Significant decrease in BMI Continue Multivitamins Iron + zinc supplementation F/u [facility] [place] F/u in 6 mos Morbid obesity 09/03/2011 12/12/2023 Overview (12/12/2023): Sp Laparoscopic sleeve gastrectomy on 11/04/22 at [facility] Assessment & Plan (06/16/2022 11:20 AM EDT): Discussed re weight reduction options including exercise, life style modifications, diet, referral to sales and in home delivery specialist. Discussed re lower calorie intake, increase dietary fiber I gave her information about weight management program for baritric surgery Encounters Date Type Department Care Team Description 09/13/2024 Telephone [facility] [address] [place] [phone] Tavo Beckman MD Medication Question; Med Refill 09/06/2024 Results Follow-Up [facility] [address] [place] [phone] Tavo Beckman MD Gram Stain Result 08/22/2024 Orders Only [facility] External Provider, [facility] 08/21/2024 Orders Only GENERIC EXTERNAL DATA DEPARTMENT Provider, Generic External Data 08/13/2024 Orders Only GENERIC EXTERNAL DATA DEPARTMENT Provider, Generic External Data 07/18/2024 Orders Only [facility] [address] [place] [address] Tavo Beckman MD 06/28/2024 Orders Only GENERIC EXTERNAL DATA DEPARTMENT Provider, Generic External Data 06/26/2024 Orders Only GENERIC EXTERNAL DATA DEPARTMENT Provider, Generic External Data 06/22/2024 11:45 AM EDT Office Visit [address] [address] Tavo Beckman MD Rheumatoid arthritis involving multiple sites with positive rheumatoid factor (CMS/HCC) (Primary Dx); Overweight; Benign essential HTN; Dietary counseling; Exercise counseling 06/22/2024 Travel 06/21/2024 Telephone [facility] [address] [place] [address] Tavo Beckman MD chart prep 06/15/2024 Patient Outreach [facility] [address] [place] [address] Tavo Beckman MD Pre-visit Planning (SDOH screening [...] AM EDT Narrative 08/22/2024 12:13 PM EDT [place] [address] [address] Scan Report Signed Patient: Serenity Gómez MR#: [id number] : 1975 Acct:[id number] Age/Sex: 49 / F ADM Date: 08/22/24 Loc: HO.CT Attending Dr: Ted ALLEN Ordering Physician: Ted Beauchamp Date of Service: 08/22/24 Procedure(s): CT abdomen pelvis wo IV con Accession Number(s): [id number] cc: Ted Beauchamp; Tavo Beckman MD Report Number: [id number]: Total DLP = 392.00 mGy-cm EXAMINATION: CT [...] 08/22/24 1210 DD/ 1127 TD/TT: 08/22/[address] Cutter: Procedure Note Donotuseinterpreter, Image - 08/22/[address] [address] [address] Scan Report Signed Patient: Serenity Gómez MMR#: [id number] : 1975Acct:[id number] Age/Sex: 49 / FADM Date: 08/22/24 Loc: HO.CT Attending Dr: Ted ALLEN Ordering Physician: Ted Beauchamp Date of Service: 08/22/24 Procedure(s): CT abdomen pelvis wo IV con Accession Number(s): [id number] cc: Ted Beauchamp; Tavo Beckman MD Report Number: [id number]: Total DLP = 392.00 mGy-cm EXAMINATION: CT [...] 08/22/24 1210 DD/ 1127 TD/TT: 08/22/[address] Cutter: [facility] External Provider IMG CT PROCEDURES Final Result * (ABNORMAL) CBC auto differential (08/21/2024 9:32 AM EDT) White Blood Count 12.7(H) 4.8 - 10.8 X10*3/uL [facility] Red Blood Count 3.95(L) 4.20 - 5.50 X10*6/uL [facility] Hemoglobin 11.6(L) 12.0 - 16.0 g/dl [facility] Hematocrit 34.8(L) 37.0 - 47.0 % [facility] Mean Corpuscular Volume 88.1 80.0 - 98.0 fL [facility] Mean Corpuscular Hemoglobin 29.4 27.0 - 33.0 pg [facility] Mean Corpuscular HGB Conc 33.3 31.0 - 35.0 g/dl [facility] Red Cell Distribution Width 11.8 11.0 - 16.0 % [facility] Platelet Count 311 160 - 400 X10*3/uL [facility] Mean Platelet Volume 9.4 9.4 - 12.3 fL [facility] Neutrophils Percent Auto 73.1(H) 45 - 73 % [facility] Imm Gran Pct Auto 0.4 0.0 - 0.4 % [facility] Lymphocytes Percent Auto 16.8(L) 20 - 40 % [facility] Monocytes Percent Auto 9.1 2 - 11 % [facility] Eosinophils Percent Auto 0.4 0 - 4 % [facility] Basophils Percent Auto 0.2 0 - 2 % [facility] NRBC Pct Auto 0.0 0.0 - 0.2 /100WBC [facility] Neutrophils Absolute Auto 9.3(H) 2.0 - 8.3 x10*3/uL [facility] Imm Gran Abs Auto 0.05(H) 0.00 - 0.03 X10*3/uL [facility] Lymphocytes Absolute Auto 2.1 1.2 - 4.9 X10*3/uL [facility] Monocytes Absolute Auto 1.2 0.1 - 1.2 X10*3/uL [facility] Eosinophils Absolute Auto 0.1 0.0 - 0.4 X10*3/uL [facility] Basophils Absolute Auto 0.0 0.0 - 0.2 X10*3/uL [facility] NRBC Abs Auto 0.000 0.0 - 0.012 X10*3/uL [facility] 08/21/2024 9:32 AM EDT 08/21/2024 9:32 AM EDT Generic External Data Provider LAB BLOOD ORDERAB LES Final Result Performing Organization Address [facility] Co de Phone Number [facility] [address] [place] [address] [phone] * Gram Stain Result (08/13/2024 2:00 PM EDT) 08/13/2024 2:00 PM EDT 08/13/2024 2:20 PM EDT Comment:Abdomen Narrative [facility] - 08/16/2024 8:01 AM EDT [...] DERABLE LABS Final Result Performing Organization Address [facility] Co de Phone Number [facility] [address] [place] [phone] * BI Mammogram Screening Tomosynthesis Bilateral (07/18/2024 12:10 PM EDT) Anatomical Region Laterality Modality Breast Bilateral Mammography 07/18/2024 12:1 0 PM EDT Narrative 07/27/2024 1:14 PM EDT [facility] [address] [place] [address] Mammography Report Signed Patient: Serenity Gómez MR#: [id number] : 1975 Acct:[id number] Age/Sex: 48 / F ADM Date: 07/18/24 Loc: HO.MAMMO Attending Dr: Tavo Beckman MD Ordering Physician: Tavo Beckman MD Results: 1Ne gative Date of Service: 07/18/24 Follow Up: 1 Year From Orig ina Mammogram Procedure(s): MM tomosynthesis screening BI Accession Number(s): [id number] cc: Tavo Beckman MD EXAMINATION: MM SCREENING [...] 07/27/24 1311 DD/ 1210 TD/TT: 07/18/[address] Cutter: Procedure Note Donotuseinterpreter, Image - 07/27/2024 [facility] [address] [place] [address] Mammography Report Signed Patient: Serenity Gómez [facility]#: [id number] : 1975Acct:[id number] Age/Sex: 48 / FADM Date: 07/18/24 Loc: HO.MAMMO Attending Dr: Tavo Beckman MD Ordering Physician: Tavo Beckman MDResults: 1Ne gatelena Date of Service: 07/18/24Follow Up: 1 Year From [facility] Mammogram Procedure(s): MM tomosynthesis screening BI Accession Number(s): [id number] cc: Tavo Beckman MD EXAMINATION: MM SCREENING [...] 07/27/24 1311 DD/ 1210 TD/TT: 07/18/[address] Cutter: Tavo Beckman MD IMG BI PROCEDURES Final Result * Gross and Microscopic Level 3 (06/28/2024 12:08 PM EDT) 06/28/2024 12:0 8 PM EDT 06/28/2024 2:20 PM EDT [facility] - 06/29/2024 4:30 PM EDT ----- ------- Name: Serenity Gómez Age/Sex: 48/F : 1975 Unit#: [id number] Attend Dr: Roel Monzon MD Re06/28/24 Status: [facility] Location: [facility] Disch: ----- ------- SPEC : [id number] RECD: 06/28/24-1420 STATUS: ANA MARÍA FERRERA NUM: [id number] AN: 06/28/24-[address]: Roel Monzon MD ENTERED: 06/28/24-5232 SP TYPE: Surgical OTHR DR: Tavo Beckman [...] distinct cysts, lesions or nodules are identified. [employer] sections are submitted in cassettes A1-A3. CEDS IHC S/NG Disclaimer NOTE: Unless otherwise stated, all tissue is formalin-fixed and paraffin-embedded. Some or all of the immunohistochemical tests reported herein may have been developed and their performance characteristics determined by [facility]. They have not been cleared or approved by the U.S. Food and Drug Administration (FDA). However, the FDA has determined that such clearance or approval is not necessary. This laboratory is certified under the Clinical Laboratory Improvement Amendments of 1988 (CLIA) as qualified to perform high complexity clinical laboratory testing. Copies To: Tavo Beckman MD [address] [address] CONTINUED ON NEXT PAGE ----- ------- Name: BarreraSerenity Kaiser Age/Sex: 48/F : 1975 Unit#: [id number] Attend Dr: Roel Monzon MD Re06/28/24 Status: [facility] Location: [facility] Disch: ----- ------- SPEC : [id number] RECD: 06/28/24-2627 STATUS: ANA MARÍA FERRERA NUM: [id number] AN: 06/28/24-[address] [facility] [address]: Roel Monzon MD ENTERED: 06/28/249407 SP TYPE: Surgical OTHR DR: Tavo Beckman MD ORDERED: Gross Micro L3 Copies To: (Continued) Roel Monzon MD [facility] [address] [place] [address] ----- ------- Signed (signature on file) Guillermina Wakefield MD 06/29/24 1630 ----- ------- END OF REPORT Generic External Data Provider LAB CYTOLOGY NATHALIA GIBBONS Final Result [facility] [address] [place] [address] [phone] * Type and screen (06/26/2024 10:45 AM EDT) Blood Type AP [facility] Antibody Screen NEGATIVE [facility] 06/26/2024 10:4 5 AM EDT 06/26/2024 11:00 AM EDT Narrative [facility] - 06/26/2024 11:37 AM EDT witnessed by graciasNURSING:Call Blood Bank (ext. [phone]) to band patient on admission.Type and Screen in effect until 2300 on 06-28-2024 Generic External Data Provider LAB BLOOD BANK TE ST ORDERABLES Final Result Performing Organization Address [facility] de Phone Number [facility] [address] [place] [address] [phone] * (ABNORMAL) Lipid Panel, Standard (02/24/2024 8:29 AM EST) Triglycerides 61 <150 mg/dL [facility] Comment:Desirable Triglyceri de: less than 150 mg/dLBorderline High Triglyceride 150-199 mg/dLHigh Triglyceride: 200-499 mg/dLVery High Triglyceride: greater than or equal to 5OO mg/dL Cholesterol 187 <200 mg/dL [facility] Comment:Desirable Cholestero l: less than 200 mg/dLBorderline High Cholesterol: 200-239 mg/dLHigh Cholesterol: greater than 239 mg/dL LDL Cholesterol Calculated 110(H) <100 mg/dL [facility] Comment:Desirable LDL: less than 100 [...] ORDERAB LES Final Result Performing Organization Address [facility]/ZIP Co de Phone Number [facility] [address] [place] [address] [phone] * Pap Smear (12/29/2022 2:49 PM EST) 12/29/2022 2:49 PM EST 01/03/2023 7:00 AM EST Narrative [facility] - 01/13/2023 4:11 PM EST ----- ------- Name: Serenity Gómez Age/Sex: 47/F : 1975 Unit#: [id number] Attend Dr: Chalino Benton MD Re12/29/22 Status: DEP REF Location: [facility] Disch: ----- ------- SPEC : [id number] RECD: 01/03/23 STATUS: ANA MARÍA FERRERA NUM: [id number] AN: 12/29/[address] [facility] [address]: Chalino Benton MD ENTERED: 01/04/23 SP [...] 59, 66, 68) HPV testing performed by [facility], [place], [place]. See reference laboratory portion of the EMR for entire report. Clinical Information LMP: Postmenopausal Previous PAP test: 2021, ASCUS, HPV+ Material Received ThinPrep-Cervical Copies To: Tavo Beckman MD [address] [place] [phone] Chalino Benton MD [address] [place], [place] [address] [phone] ----- ------- Signed (signature on file) MANUEL Uriarte ([facility]) 01/13/23 1611 ----- ------- END OF REPORT Generic External Data Provider LAB CYTOLOGY NATHALIA GIBBONS Final Result [facility] [address] [place] [phone] * HPV E6/E7 RFLX OLGA 16 18/45 (11/11/2021 3:37 PM EDT) HPV mRNA E6/E7 rflx Not Detected Not Detected [facility] Comment: Methodology: Marketing Production Coordinator-Mediated Amplification This assay detects E6/E7 viral messenger RNA (mRNA) from 14 high-risk HPV types (16,18,31,33,35,39,45,51,52,56,58,59,66,68). Cervical sources are required for HPV testing. If a vaginal source from a patient who has had a total hysterectomy with removal of cervix was submitted, please contact the testing laboratory for alternative testing options. For additional information, please refer to http://education.Coridea/faq/FWZ659h6 (This link if provided for information/ educational purposes only.) THIS TEST WAS PERFORMED AT: [employer] [address] [place] [address],[place] [address] ELIZABETH ANDRES MD 11/11/2021 3:37 PM EDT [...] purpose. For additional information please refer to http://education.Connectipity.Immunetics/faq/AQH914 (This link is being provided for informational/ educational purposes only.) The performance of this assay has not been clinically validated in patients less than 2 years old. 10/17/2020 1:05 PM EDT us Tavo Beckman MD LAB BLOOD ORDERABLES Fin al Result [facility] [address] from Last 3 Months or Most Recently Relevant to Health Maintenance Insurance [employer] [facility] Care Teams Efficiency Manager Relationship Specialty Start Date End Date Tavo Beckman MD [address] [place] [phone] PCP - General Family Medicine [facility]
--- NOTE | 2024-09-13 14:58 | A.OFFVIS_ITS ---
VS Expanded 09/13/24 14:59 BP 118/62 Blood Pressure Location Rt brachial Blood Pressure Position Sitting Pulse 63 Pulse Source Pulse Oximeter Temp 98.2 F Temperature Source Temporal Artery Scan Pulse Oximetry 96 Oxygen Delivery Method Room Air Height 4 ft 11 in Weight 129 lb 3.2 oz BMI 26.1 Body Fat % 30.5 Body Fat Mass 39.4 Fat Free Mass 89.8 Visceral Fat Rating 6 Body Water % 49.3 Body Water Mass 63.8 Muscle Mass/Score 85 Basal Metabolic Rate/Score 1,221 Intake Visit Reasons: OV Panniculectomy 06/28/24 Allergies No Known Allergies Allergy (Verified 08/31/24 14:01) HPI Comments Details: 49-year-old female returns to the office today in follow-up. She is post panniculectomy on 06/28/2024. She has completed 28 days of Bactrim DS 1 tab p.o. b.i.d. for MRSA postoperative abscess. She overall reports feeling well. Continues to follow her meal plan as directed by Dr. Monzon. Continues to wear her abdominal binder. [facility] Medical History (Updated 08/20/24 @ 13:35 by TIFFANY Fox) Excess skin History of vertigo Nephrolithiasis GERD (gastroesophageal reflux disease) Anxiety Depression BMI 39.0-39.9,adult Morbid obesity Right shoulder injury Left lateral epicondylitis Right shoulder tendonitis Carpal tunnel syndrome on both sides Normal vulvar exam Hemorrhoids Diverticulosis Tubular adenoma Encounter for screening colonoscopy Postmenopausal bleeding Well woman exam BENITO III (cervical intraepithelial neoplasia grade III) with severe dysplasia Carpal tunnel syndrome Acute arthritis Seasonal allergic rhinitis Surgical History S/P panniculectomy 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) Hx of colonoscopy (07/2021) Tubal ligation status Family History Mother HTN (hypertension) A-fib Arthritis Father Diabetes HTN (hypertension) Sister Lupus Social History Household Members: Spouse Housing: House Are you a primary health care legal assistant to a significant other at home: No Do you presently have visiting nurse or other home services: No Alcohol intake: current Alcohol intake frequency: does not drink Patient Tobacco Use Status: Never used Tobacco service: No Current occupational status: employed 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 The midline area is smaller cavity with minimal purulence noted. No discharge noted no overlying skin redness, induration or tenderness. Assessment & Plan Assessment & Plan (1) Post-operative wound abscess: Code(s): T81.49XA - Infection following a procedure, other surgical site, initial encounter Category: Medical Plan: Completed 28 days of Bactrim Continue meal plan Midline open area was flushed with 50% saline 50% hydrogen peroxide and packed with quarter-inch packing strip. Return to clinic tomorrow.
[2024-09-13 14:59] VITALS: BP 118/62; PULSE 63; TEMP 36.8; O2SAT 96; BMI 26.1
== END 2024-09-13 15:19 | disposition home or self-care (01) ==
LOC: HO.HBS 14:33
PROVIDERS: PCP Internal Medicine; Visit Provider Physician Assistant Surgical
DX: T81.49XA Infection following a procedure, other surgical site, initial encounter (principal)
CPT/HCPCS: 99024

== ENCOUNTER → 2024-09-13 14:33 | Outpatient (BNVA) | payer OTHER, SELFPAY | PROVIDERS: PCP Internal Medicine; Visit Provider Physician Assistant Surgical | DX: T81.49XA Infection following a procedure, other surgical site, initial encounter (principal) | CPT/HCPCS: 99212 ==

== ENCOUNTER 2024-09-14 11:27 | Outpatient (AMB) | payer OTHER, SELFPAY ==
--- OUTSIDE RECORDS SUMMARY | 2024-09-11 16:20 | XMS_ITS | Encounter Summary ---
Author Organization [facility] Address [address] [place] [address] Care Team Providers Care Profiling Machine Operator Name Role Phone Unavailable Primary Care Provider Unavailabl e Encounter Details Date Type Department Care Team (Late st Contact Info) Description 09/11/2024 4:20 PM EDT Office Visit [facility] [address] [place] [phone] Thaddeus Wright, [facility] [address] [place] [address] Social History Tobacco Use Types Packs/Day Years [...] this encounter Progress Notes * Thaddeus Wright, [facility] - 09/11/2024 4:52 PM EDT Prophy, 4 bwx, Exam - Adult Subjective Serenity Barrera, 49 year old female, presents alone for Recall exam. Channeling Machine Runner: Yes: Ivorian No chief complaint on file. Objective RMHx: Yes Vitals: There were no vitals filed for this visit. Assessment EOE/IOE/Oral Cancer Screen: WNL [place]: Good Fluoride exposure: toothpaste Home Care: Toothbrush 1 x per day, Floss 1 x per day Plaque: Generalized Slight Calculus: Localized Slight Bone Loss: None PSR: No Periodontal Screening OHI & Nutrition counseling provided, discussed: Gingivitis Occlusion: N/A. Class I R & L. Overbite WNL. Overjet WNL. TMJ: WNL Caries Risk Assessment: Auto calculated Risk Score : moderate risk Dx: K03.0 Excessive attrition of teeth (primary encounter diagnosis) Dx Details (Clinical Decision Making): Plan No restorative needed Informed Consent/PARQ (Procedure, Alternatives, Risks, Questions): Discussed exam findings and treatment needs, questions answered. Patient confirms informed consent using PARQ, verbalizes understanding of exam findings and treatment plan. Dental procedures in this visit D9450 - CASE PRESENTATION SUBS DTL & EXTENSIVE TX PLN (Completed) Service provider: Thaddeus Wright RDH Billing provider: Song Griffith DDS TX993 - ORAL CANCER SCREENING (Completed) Service provider: Thaddeus Wright RDH Billing provider: Song Griffith DDS D1330 - ORAL HYGIENE INSTRUCTIONS (Completed) Service provider: Thaddeus Wright RDH Billing provider: Song Griffith DDS D1310 - NUTRITIONAL COUNSELING CONTROL OF DENTAL DISEASE (Completed) Service provider: Thaddeus Wright RDH Billing provider: Song Griffith DDS D0602 - CARIES RISK ASSESSMENT & DOC FINDING MOD RISK (Completed) Service provider: Thaddeus Wright RDH Billing provider: Song Griffith DDS D0120 - PERIODIC ORAL EVALUATION ESTABLISHED PATIENT (Completed) Service provider: Thaddeus Wright RDH Billing provider: Song Griffith DDS D0274 - BITEWINGS - FOUR RADIOGRAPHIC IMAGES (Completed) Service provider: Thaddeus Wright RDH Billing provider: Song Griffith DDS D1110 - PROPHYLAXIS - ADULT (Completed) Service provider: Thaddeus Wright RDH Billing provider: Song Griffith DDS D9993 - DENTAL CASE MANAGEMENT - MOTIVATIONAL INTV (Completed) Service provider: Thaddeus Wright RDH Billing provider: Song Griffith DDS Referrals: No orders of the following type(s) were placed in this encounter: Referral. Rx: No orders of the defined types were placed in this encounter. Behavior: Excellent Prophy completed via ultrasonic, handscale, azeri and floss NV: Recall Exam - 6 months Thaddeus Wright RDH documented in this encounter Miscellaneous Notes * Patient Instructions - Thaddeus Wright RDH - 09/11/2024 4:37 PM EDT If you are not able to keep your appointment please call 24-48 hours before your appointment to cancel or reschedule. documented in this encounter Plan of Treatment Upcoming Encounters Date Type Department Care Team (Late st Contact Info) Description 03/15/2025 3:40 PM EST Office Visit [facility] [address] [place] [phone] [place] [address] documented as of this encounter Procedures Procedure Name Priority Date/Time Associated Diagnosis Comments ORAL CANCER SCREENING Routine 09/11/2024 4:20 PM EDT Excessive attrition of teeth DENTAL CASE MANAGEMENT - MOTIVATIONAL INTV Routine 09/11/2024 4:20 PM EDT Excessive attrition of teeth CARIES RISK ASSESSMENT & DOC FINDING MOD RISK Routine 09/11/2024 4:20 PM EDT Excessive attrition of teeth CASE PRESENTATION SUBS DTL & EXTENSIVE TX PLN Routine 09/11/2024 4:20 PM EDT Excessive attrition of teeth ORAL HYGIENE INSTRUCTIONS Routine 09/11/2024 4:20 PM EDT Excessive attrition of teeth NUTRITIONAL COUNSELING CONTROL OF DENTAL DISEASE Routine 09/11/2024 4:20 PM EDT Excessive attrition of teeth PROPHYLAXIS - ADULT Routine 09/11/2024 4 :20 PM EDT Excessive attrition of teeth BITEWINGS - FOUR RADIOGRAPHIC IMAGES Routine 09/11/2024 4:20 PM EDT Excessive attrition of teeth PERIODIC ORAL EVALUATION ESTABLISHED PATIENT Routine 09/11/2024 4:20 PM EDT Excessive attrition of teeth documented in this encounter Visit Diagnoses Diagnosis Excessive attrition of teeth- Primary Excessive attrition of teeth, unspecified documented in this encounter
--- OUTSIDE RECORDS SUMMARY | 2024-09-14 11:30 | XMS_ITS | Clinical Summary ---
Author Organization [employer] Address [address] [place] [address] Care Team Providers Care [employer]dnance [employer] Officer Name Role Phone Tavo Beckman MD Primary Care Provider + Allergies No known active allergies Medications tiZANidine (Zanaflex) 4 MG capsuleIndicati ons:Acute pain of right shoulder Take 1 capsule (4 mg) by mouth 3 times daily. 90 capsule 1 3 Active ergocalciferol (Vitamin D2) 1.25 MG (59809 UT) capsule TAKE 1 CAPSULE BY MOUTH EVERY WEEK 12 capsule 3 Active FLUoxetine (PROzac) 20 MG capsule Take 1 capsule (20 mg) by mouth Once per day. 90 capsule 3 5 06/23/19 26 Active meclizine (Antivert) 25 MG tablet Take 1 tablet (25 mg) by mouth if needed in the morning, at noon, and at bedtime for dizziness for up to 10 days. 30 tablet 5 09/24/19 25 Active Active Problems Problem Noted Date Diagnosed Date Benign essential HTN 06/22/2024 Assessment & Plan (09/07/2024 3:02 PM EDT): Fairly controlled. Continue dietary modifications counseled re low salt diet/increase moderate physical activity. Check home BP BIW and prn CP/SHEETS/SAENZ Non smoking patient. S/P laparoscopic sleeve gastrectomy 12/12/2023 Assessment & Plan (12/12/2023 1:26 PM EST): On 10/2022 at [facility] Overweight 12/12/2023 Assessment & Plan (09/07/2024 3:03 [...] Resolved, last PAP was wnl Fu w/ COUNSELING PSYCHOLOGIST for PAP smear 12/2023 Assessment & Plan (06/16/2022 11:21 AM EDT): PAP smear on 12/03/21 showed NIL/+HPV FU with COUNSELING PSYCHOLOGIST on 11/2022 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 Resolved Problems Problem Noted Date Diagnosed Date Resolved Date Obesity (BMI 30.0-34.9) 12/27/2022 11/0 05/2023 Assessment & Plan (12/27/2022 3:25 PM EST): Status Post bariatric surgery Significant decrease in BMI Continue Multivitamins Iron + zinc supplementation F/u [facility] obesity clinic F/u in 6 mos Morbid obesity 09/03/2011 12/12/2023 Overview (12/12/2023): Sp Laparoscopic sleeve gastrectomy on 11/04/22 at [facility] Assessment & Plan (06/16/2022 11:20 AM EDT): Discussed re weight reduction options including exercise, life style modifications, diet, referral to family development specialist. Discussed re lower calorie intake, increase dietary fiber I gave her information about weight management program for baritric surgery Encounters Date Type Department Care Team Description 09/13/2024 Refill [facility] [address] [place] [address] Tavo Beckman MD 09/06/2024 Results Follow-Up [facility] [address] [place] [address] Tavo Beckman MD Gram Stain Result 08/22/2024 Orders Only [facility] External Provider, [facility] 08/21/2024 Orders Only GENERIC EXTERNAL DATA DEPARTMENT Provider, Generic External Data 08/13/2024 Orders Only GENERIC EXTERNAL DATA DEPARTMENT Provider, Generic External Data 07/18/2024 Orders Only [facility] [address] [place] [address] Tavo Beckman MD 06/28/2024 Orders Only GENERIC EXTERNAL DATA DEPARTMENT Provider, Generic External Data 06/26/2024 Orders Only GENERIC EXTERNAL DATA DEPARTMENT Provider, Generic External Data 06/22/2024 11:45 AM EDT Office Visit [address] [address] Tavo Beckman MD Rheumatoid arthritis involving multiple sites with positive rheumatoid factor ([facility]) (Primary Dx); Overweight; Benign essential HTN; Dietary counseling; Exercise counseling 06/22/2024 Travel 06/21/[address] [address] Tavo Beckman MD chart prep 06/15/2024 Patient Outreach [address] [address] Tavo Beckman MD Pre-visit Planning (SDOH screening [...] the past 12 months, has t he [employer], [employer], oil or water company threatened to shut [...] AM EDT Narrative 08/22/2024 12:13 PM EDT [address] [address] [address] Scan Report Signed Patient: Serenity Gómez MR#: [id number] : 1975 Acct:[id number] Age/Sex: 49 / F ADM Date: 08/22/24 Loc: HO.CT Attending Dr: Ted ALLEN Ordering Physician: Ted Beauchamp Date of Service: 08/22/24 Procedure(s): CT abdomen pelvis wo IV con Accession Number(s): [id number] cc: Ted Beauchamp; Tavo Beckman MD Report Number: [id number]: Total DLP = 392.00 mGy-cm EXAMINATION: CT [...] 08/22/24 1210 DD/ 1127 TD/TT: 08/22/24 1150 Data Entry Coordinator: Procedure Note Donotuseinterpreter, Image - 08/22/[address] [place] [address] [address] Scan Report Signed Patient: Serenity Gómez MMR#: [id number] : 1975Acct:[id number] Age/Sex: 49 / FADM Date: 08/22/24 Loc: HO.CT Attending Dr: Ted ALLEN Ordering Physician: Ted Beauchamp Date of Service: 08/22/24 Procedure(s): CT abdomen pelvis wo IV con Accession Number(s): [id number] cc: Ted Beauchamp; Tavo Beckman MD Report Number: [id number]: Total DLP = 392.00 mGy-cm EXAMINATION: CT [...] 08/22/24 1210 DD/ 1127 TD/TT: 08/22/24 1150 Data Entry Coordinator: [facility] External Provider IMG CT PROCEDURES Final Result * (ABNORMAL) CBC auto differential (08/21/2024 9:32 AM EDT) White Blood Count 12.7(H) 4.8 - 10.8 X10*3/uL [facility] Red Blood Count 3.95(L) 4.20 - 5.50 X10*6/uL [facility] Hemoglobin 11.6(L) 12.0 - 16.0 g/dl [facility] Hematocrit 34.8(L) 37.0 - 47.0 % [facility] Mean Corpuscular Volume 88.1 80.0 - 98.0 fL [facility] Mean Corpuscular Hemoglobin 29.4 27.0 - 33.0 pg [facility] Mean Corpuscular HGB Conc 33.3 31.0 - 35.0 g/dl [facility] Red Cell Distribution Width 11.8 11.0 - 16.0 % [facility] Platelet Count 311 160 - 400 X10*3/uL [facility] Mean Platelet Volume 9.4 9.4 - 12.3 fL [facility] Neutrophils Percent Auto 73.1(H) 45 - 73 % [facility] Imm Gran Pct Auto 0.4 0.0 - 0.4 % [facility] Lymphocytes Percent Auto 16.8(L) 20 - 40 % [facility] Monocytes Percent Auto 9.1 2 - 11 % [facility] Eosinophils Percent Auto 0.4 0 - 4 % [facility] Basophils Percent Auto 0.2 0 - 2 % [facility] NRBC Pct Auto 0.0 0.0 - 0.2 /100WBC [facility] Neutrophils Absolute Auto 9.3(H) 2.0 - 8.3 x10*3/uL [facility] Imm Gran Abs Auto 0.05(H) 0.00 - 0.03 X10*3/uL [facility] Lymphocytes Absolute Auto 2.1 1.2 - 4.9 X10*3/uL [facility] Monocytes Absolute Auto 1.2 0.1 - 1.2 X10*3/uL [facility] Eosinophils Absolute Auto 0.1 0.0 - 0.4 X10*3/uL [facility] Basophils Absolute Auto 0.0 0.0 - 0.2 X10*3/uL [facility] NRBC Abs Auto 0.000 0.0 - 0.012 X10*3/uL [facility] 08/21/2024 9:32 AM EDT 08/21/2024 9:32 AM EDT Generic External Data Provider LAB BLOOD ORDERAB LES Final Result Performing Organization Address [facility]/ZIP Co de Phone Number [facility] [address] [place] [address] [phone] * Gram Stain Result (08/13/2024 2:00 PM EDT) 08/13/2024 2:00 PM EDT 08/13/2024 2:20 PM EDT Comment:Abdomen Narrative [facility] - 08/16/2024 8:01 AM EDT [...] DERABLE LABS Final Result Performing Organization Address City/[facility]/ZIP Co de Phone Number [facility] [address] [place] [phone] * BI Mammogram Screening Tomosynthesis Bilateral (07/18/2024 12:10 PM EDT) Anatomical Region Laterality Modality Breast Bilateral Mammography 07/18/2024 12:1 0 PM EDT Narrative 07/27/2024 1:14 PM EDT [facility] [address] [place] [address] Mammography Report Signed Patient: Serenity Gómez MR#: [id number] : 1975 Acct:[id number] Age/Sex: 48 / F ADM Date: 07/18/24 Loc: HO.MAMMO Attending Dr: Tavo Beckman MD Ordering Physician: Tavo Beckman MD Results: 1Ne gative Date of Service: 07/18/24 Follow Up: 1 Year From Orig inal Mammogram Procedure(s): MM tomosynthesis screening BI Accession Number(s): [id number] cc: Tavo Beckman MD EXAMINATION: MM SCREENING [...] 07/27/24 1311 DD/ 1210 TD/TT: 07/18/24 1230 Data Entry Coordinator: Procedure Note Donotuseinterpreter, Image - 07/27/2024 [facility] [address] [place] [address] Mammography Report Signed Patient: Serenity Gómez MMR#: [id number] : 1975Acct:[id number] Age/Sex: 48 / FADM Date: 07/18/24 Loc: HO.MAMMO Attending Dr: Tavo Beckman MD Ordering Physician: Tavo Beckman MDResults: 1Ne gative Date of Service: 07/18/24Follow Up: 1 Year From Orig ina Mammogram Procedure(s): MM tomosynthesis screening BI Accession Number(s): [id number] cc: Tavo Beckman MD EXAMINATION: MM SCREENING [...] 07/27/24 1311 DD/ 1210 TD/TT: 07/18/24 1230 Data Entry Coordinator: us Tavo Beckman MD IMG BI PROCEDURES Final Result * Gross and Microscopic Level 3 (06/28/2024 12:08 PM EDT) 06/28/2024 12:0 8 PM EDT 06/28/2024 2:20 PM EDT [facility] - 06/29/2024 4:30 PM EDT ----- ------- Name: BarreraSerenity Kaiser Age/Sex: 48/F : 1975 Unit#: [id number] Attend Dr: Roel Monzon MD Re06/28/24 Status: [facility] [place] Location: [facility] Disch: ----- ------- SPEC : [id number] RECD: 06/28/24-1420 STATUS: ANA MARÍA FERRERA NUM: [id number] AN: 06/28/24-[address]: Roel Monzon MD ENTERED: 06/28/24-1435 SP TYPE: Surgical OTHR DR: Tavo Beckman [...] distinct cysts, lesions or nodules are identified. Wiener Packer sections are submitted in cassettes A1-A3. CEDS IHC S/NG Disclaimer NOTE: Unless otherwise stated, all tissue is formalin-fixed and paraffin-embedded. Some or all of the immunohistochemical tests reported herein may have been developed and their performance characteristics determined by [facility]. They have not been cleared or approved by the U.S. Food and Drug Administration (FDA). However, the FDA has determined that such clearance or approval is not necessary. This laboratory is certified under the Clinical Laboratory Improvement Amendments of 1988 (CLIA) as qualified to perform high complexity clinical laboratory testing. Copies To: Tavo Beckman MD [address] [address] CONTINUED ON NEXT PAGE ----- ------- Name: Bruce MunozSerenity Karsten Age/Sex: 48/F : 1975 Unit#: [id number] Attend Dr: Roel Monzon MD Re06/28/24 Status: [facility] [place] Location: [facility] Disch: ----- ------- SPEC : [id number] RECD: 06/28/24-1419 STATUS: ANA MARÍA FERRERA NUM: [id number] AN: 06/28/24-[address]: Roel Monzon MD ENTERED: 06/28/24 SP TYPE: Surgical OTHR DR: Tavo Beckman MD ORDERED: Gross Micro L3 Copies To: (Continued) Roel Monzon MD [facility] [address] [place] [phone] ----- ------- Signed (signature on file) Guillermina Wakefield MD 06/29/24 1630 ----- ------- END OF REPORT us Generic External Data Provider LAB CYTOLOGY NATHALIA GIBBONS Final Result [facility] [address] [place] [phone] * Type and screen (06/26/2024 10:45 AM EDT) Blood Type AP [facility] Antibody Screen NEGATIVE [facility] 06/26/2024 10:4 5 AM EDT 06/26/2024 11:00 AM EDT Narrative [facility] - 06/26/2024 11:37 AM EDT witnessed by graciasNURSING:Call Blood Bank (ext. [phone]) to band patient on admission.Type and Screen in effect until 2300 on 06-28-2024 Generic External Data Provider LAB BLOOD BANK TE ST ORDERABLES Final Result Performing Organization Address City/[facility]/ZIP Co de Phone Number [facility] [address] [place] [address] [phone] * (ABNORMAL) Lipid Panel, Standard (02/24/2024 8:29 AM EST) Triglycerides 61 <150 mg/dL [facility] Comment:Desirable Triglyceri de: less than 150 mg/dLBorderline High Triglyceride 150-199 mg/dLHigh Triglyceride: 200-499 mg/dLVery High Triglyceride: greater than or equal to 5OO mg/dL Cholesterol 187 <200 mg/dL [facility] Comment:Desirable Cholestero l: less than 200 mg/dLBorderline High Cholesterol: 200-239 mg/dLHigh Cholesterol: greater than 239 mg/dL LDL Cholesterol Calculated 110(H) <100 mg/dL [facility] Comment:Desirable LDL: less than 100 mg/dLNear Optimal/Above Optimal LDL: 110- 129 mg/dLBorderline High LDL: 130-159 mg/dLHigh LDL: 160-189 mg/dLVery High LDL: greater than or equal to 190 mg/dL HDL Cholesterol 65 >40 mg/dL [facility] Comment:Desirable HDL: great er than 40 mg/dL Note: This HDL assay may give artificially low results in patients with liver disease. 02/24/2024 8:29 AM EST 02/24/2024 8:29 AM EST us Generic External Data Provider LAB BLOOD ORDERAB LES Final Result Performing Organization Address City/[facility]/ZIP Co de Phone Number [facility] [address] [place] [address] [phone] * Pap Smear (12/29/2022 2:49 PM EST) 12/29/2022 2:49 PM EST 01/03/2023 7:00 AM EST Zenaida [facility] - 01/13/2023 4:11 PM EST ----- ------- Name: Serenity Gómez Age/Sex: 47/F : 1975 Unit#: [id number] Attend Dr: Chalino Benton MD Re12/29/22 Status: DEP REF Location: [facility] Disch: ----- ------- SPEC : [id number] RECD: 01/03/23 STATUS: ANA MARÍA FERRERA NUM: [id number] AN: 12/29/22-1449 [facility] DR: Chalino Benton MD ENTERED: 01/04/23-1317 SP TYPE: Pap Smr [facility] DR: Tavo Beckman MD ORDERED: Pap Smear Interpretation Satisfactory for evaluation. Negative for intraepithelial lesion or malignancy. HPV mRNA E6/E7: NOT DETECTED This assay detects E6/E7 viral messenger RNA (mRNA) from 14 high-risk HPV types (16, 18, 31, 33, 35, 39, 45, 51, 52, 56, 58, 59, 66, 68) HPV testing performed by [facility], [place], [place]. See reference laboratory portion of the EMR for entire report. Clinical Information LMP: Postmenopausal Previous PAP test: 2021, ASCUS, HPV+ Material Received ThinPrep-Cervical Copies To: Tavo Beckman MD [address] [place] [id number] Chalino Benton MD [address] [place] [address] [place] [address] ----- ------- Signed (signature on file) MANUEL Uriarte ([facility]) 01/13/23 1611 ----- ------- END OF REPORT Generic External Data Provider LAB CYTOLOGY NATHALIA GIBBONS Final Result [facility] [address] [place] [phone] * HPV E6/E7 RFLX OLGA 16 18/45 (11/11/2021 3:37 PM EDT) HPV mRNA E6/E7 rflx Not Detected Not Detected [facility] Comment: Methodology: Fitness Sales Consultant-Mediated Amplification This assay detects E6/E7 viral messenger RNA (mRNA) from 14 high-risk HPV types (16,18,31,33,35,39,45,51,52,56,58,59,66,68). Cervical sources are required for HPV testing. If a vaginal source from a patient who has had a total hysterectomy with removal of cervix was submitted, please contact the testing laboratory for alternative testing options. For additional information, please refer to http://education.Esanex/faq/DCY245a6 (This link if provided for information/ educational purposes only.) THIS TEST WAS PERFORMED AT: [employer] [address] [facility] [address],[place] [phone] ELIZABETH ANDRES MD 11/11/2021 3:37 PM EDT [...] purpose. For additional information please refer to http://education.[employer]Summits.AVIA/faq/CZO170 (This link is being provided for informational/ educational purposes only.) The performance of this assay has not been clinically validated in patients less than 2 years old. 10/17/2020 1:05 PM EDT us Tavo Beckman MD LAB BLOOD ORDERABLES Fin al Result [facility] [address] [place] [address], from Last 3 Months or Most Recently Relevant to Health Maintenance Insurance [facility] Care Teams [employer] Officer Relationship Specialty Start Date End Date Tavo Beckman MD [address] [place] [phone] PCP - General Family Medicine 12/27/17 [facility] 06/29/24
--- OUTSIDE RECORDS SUMMARY | 2024-09-14 11:30 | XMS_ITS | Clinical Summary ---
Author Organization [facility] ity Address [address] [place] [address] Care Team Providers Care Assisted Living Care Manager Name Role Phone Unavailable Primary Care [...]
--- NOTE | 2024-09-14 11:39 | A.OFFVIS_ITS ---
VS Expanded 09/14/24 11:44 BP 115/70 Blood Pressure Location Rt brachial Blood Pressure Position Sitting Pulse 65 Pulse Source Pulse Oximeter Temp 97.8 F Temperature Source Temporal Artery Scan Pulse Oximetry 100 Oxygen Delivery Method Room Air Height 4 ft 11 in Weight 130 lb 9.6 oz BMI 26.4 Body Fat % 30.9 Body Fat Mass 40.4 Fat Free Mass 90.2 Visceral Fat Rating 6.0 Body Water % 49.0 Body Water Mass 64.0 Muscle Mass/Score 85.6 Basal Metabolic Rate/Score 1,227 Intake Visit Reasons: OV Panniculectomy 06/28/24 Allergies No Known Allergies Allergy (Verified 08/31/24 14:01) HPI Comments Details: Pleasant 49-year-old female returns to the office today in follow-up. She is status post panniculectomy on 06/28/2024. She developed postoperative abscess in the midline. She has completed 28 days of Bactrim for MRSA culture positive bacteria. The previously opened area on the right side of the incision has almost completely healed. The midline incision opening continues to show positive progress. Very minimal purulence. No induration, erythema or tenderness. No odor. She continues to follow recommended meal plan. PENDING SALE TO [facility] Medical History (Updated 08/20/24 @ 13:35 by TIFFANY Fox) Excess skin History of vertigo Nephrolithiasis GERD (gastroesophageal reflux disease) Anxiety Depression BMI 39.0-39.9,adult Morbid obesity Right shoulder injury Left lateral epicondylitis Right shoulder tendonitis Carpal tunnel syndrome on both sides Normal vulvar exam Hemorrhoids Diverticulosis Tubular adenoma Encounter for screening colonoscopy Postmenopausal bleeding Well woman exam BENITO III (cervical intraepithelial neoplasia grade III) with severe dysplasia Carpal tunnel syndrome Acute arthritis Seasonal allergic rhinitis Surgical History S/P panniculectomy 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) Hx of colonoscopy (07/2021) Tubal ligation status Family History Mother HTN (hypertension) A-fib Arthritis Father Diabetes HTN (hypertension) Sister Lupus Social History Household Members: Spouse Housing: House Are you a primary career and transition teacher to a significant other at home: No Do you presently have visiting nurse or other home services: No Alcohol intake: current Alcohol intake frequency: does not drink Patient Tobacco Use Status: Never used Tobacco service: No Current occupational status: employed 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 A proximally 0.1 by 0.2 cm of exposed granulating tissue. Mid transverse incision opening shows continued improvement. Flushed with 50% normal saline and 50% hydrogen peroxide, packed with quarter-inch iodoform packing. No induration or fluctuance or odor or purulent discharge Assessment & Plan Assessment & Plan (1) Post-operative wound abscess: Code(s): T81.49XA - Infection following a procedure, other surgical site, initial encounter Category: Medical Plan: Patient continues to show improvement in her midline abscess. This has been treated with 28 days of Bactrim DS 1 p.o. b.i.d.. She continues to have the area packed. There is significantly less purulent drainage over the course of her treatment. No further induration or redness. No tenderness. Very minimal exudate on the packing strip when removed. Continue current treatment plans. Return to clinic Tuesday.
[2024-09-14 11:44] VITALS: BP 115/70; PULSE 65; TEMP 36.6; O2SAT 100; BMI 26.4
== END 2024-09-14 11:42 | disposition home or self-care (01) ==
LOC: HO.HBS 11:28
PROVIDERS: PCP Internal Medicine; Visit Provider Physician Assistant Surgical
DX: T81.49XA Infection following a procedure, other surgical site, initial encounter (principal)
CPT/HCPCS: 99024

== ENCOUNTER → 2024-09-14 11:27 | Outpatient (BNVA) | payer OTHER, SELFPAY | PROVIDERS: PCP Internal Medicine; Visit Provider Physician Assistant Surgical | DX: T81.49XA Infection following a procedure, other surgical site, initial encounter (principal) | CPT/HCPCS: 99212 ==

== ENCOUNTER 2024-09-17 13:03 | Outpatient (AMB) | payer OTHER, SELFPAY ==
--- NOTE | 2024-09-17 13:06 | A.OFFVIS_ITS ---
VS Expanded 09/17/24 13:35 BP 154/85 H Blood Pressure Location Rt brachial Blood Pressure Position Sitting Pulse 70 Pulse Source Pulse Oximeter Temp 97.2 F Temperature Source Temporal Artery Scan Pulse Oximetry 99 Oxygen Delivery Method Room Air Height 4 ft 11 in Weight 132 lb BMI 26.7 Body Fat % 29.8 Body Fat Mass 39.2 Fat Free Mass 92.6 Visceral Fat Rating 6.0 Body Water % 49.8 Body Water Mass 65.6 Muscle Mass/Score 88.0 Basal Metabolic Rate/Score 1,253 Intake Visit Reasons: OV Panniculectomy 06/28/24 Allergies No Known Allergies Allergy (Verified 08/31/24 14:01) HPI Comments Details: 49-year-old female, status post panniculectomy 06/28/2024 continues with quarter- inch iodoform packing to the midline area of dehiscence where abscess developed. She has been off antibiotics for 5 days without fever, chills, reaccumulation of pus, induration. No complaints of pain. Continues to follow recommended meal plan. [facility] Medical History (Updated 08/20/24 @ 13:35 by TIFFANY Fox) Excess skin History of vertigo Nephrolithiasis GERD (gastroesophageal reflux disease) Anxiety Depression BMI 39.0-39.9,adult Morbid obesity Right shoulder injury Left lateral epicondylitis Right shoulder tendonitis Carpal tunnel syndrome on both sides Normal vulvar exam Hemorrhoids Diverticulosis Tubular adenoma Encounter for screening colonoscopy Postmenopausal bleeding Well woman exam BENITO III (cervical intraepithelial neoplasia grade III) with severe dysplasia Carpal tunnel syndrome Acute arthritis Seasonal allergic rhinitis Surgical History S/P panniculectomy 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) Hx of colonoscopy (07/2021) Tubal ligation status Family History Mother HTN (hypertension) A-fib Arthritis Father Diabetes HTN (hypertension) Sister Lupus Social History Household Members: Spouse Housing: House Are you a primary care technician to a significant other at home: No Do you presently have visiting nurse or other home services: No Alcohol intake: current Alcohol intake frequency: does not drink Patient Tobacco Use Status: Never used Tobacco service: No Current occupational status: employed Current occupation: [employer] Sexual orientation: Straight/Heterosexual Gender identity: Female Female Reproductive History Menstrual Age of Menarche: 10 Physical Exam Skin Other: Midline opening continues to decrease in size, pocket also decreasing. Minimal exudate. No significant purulence. Flushed with 50% hydrogen peroxide and 50% normal saline. One small metal clip extruded from the opening. No bleeding was appreciated. Area was packed with quarter-inch iodoform packing strip covered with dry clean dressing. Assessment & Plan Assessment & Plan (1) Post-operative wound abscess: Code(s): T81.49XA - Infection following a procedure, other surgical site, initial encounter Category: Medical Plan: Abscess midline continues to heal. No evidence of recurrence. Continue current treatment plans. Return to clinic tomorrow.
[2024-09-17 13:35] VITALS: BP 154/85; PULSE 70; TEMP 36.2; O2SAT 99; BMI 26.7
== END 2024-09-17 13:44 | disposition home or self-care (01) ==
LOC: HO.HBS 13:04
PROVIDERS: PCP Internal Medicine; Visit Provider Physician Assistant Surgical
DX: T81.49XA Infection following a procedure, other surgical site, initial encounter (principal)
CPT/HCPCS: 99024

== ENCOUNTER → 2024-09-17 13:03 | Outpatient (BNVA) | payer OTHER, SELFPAY | PROVIDERS: PCP Internal Medicine; Visit Provider Physician Assistant Surgical | DX: T81.49XA Infection following a procedure, other surgical site, initial encounter (principal) | CPT/HCPCS: 99212 ==

== ENCOUNTER 2024-09-18 11:55 | Outpatient (AMB) | payer OTHER, SELFPAY ==
--- NOTE | 2024-09-18 12:19 | MHC.OFFVISWM ---
VS Expanded 09/18/24 12:20 BP 124/75 Blood Pressure Location Rt brachial Blood Pressure Position Sitting Pulse 63 Pulse Source Pulse Oximeter Temp 96.7 F L Temperature Source Temporal Artery Scan Pulse Oximetry 98 Oxygen Delivery Method Room Air Height 4 ft 11 in Weight 132 lb 9.6 oz BMI 26.8 Body Fat % 29.5 Body Fat Mass 39.0 Fat Free Mass 93.4 Visceral Fat Rating 6.0 Body Water % 50.1 Body Water Mass 66.4 Muscle Mass/Score 88.6 Basal Metabolic Rate/Score 1,263 Intake Visit Reasons: OV Panniculectomy 06/28/24 Allergies No Known Allergies Allergy (Verified 08/31/24 14:01) Medication List - Last Reconciled 09/18/24 by TIFFANY Clay cholecalciferol (vitamin D3) 125 mcg PO DAILY docusate sodium (Colace) 100 mg PO DAILY ygtrewdagzal-ttf-nrgf-FA-vit K 45 mg iron- 800 mcg-120 mcg (Bariatric Multivitamins) 1 cap PO DAILY ondansetron 4 mg PO Q6H PRN sennosides (senna) 17.2 mg (2 x 8.6 mg) PO BEDTIME PRN sulfamethoxazole-trimethoprim 800-160 mg (Bactrim DS) 1 tab PO BID 8 days HPI Comments Details: Patient is a 49-year-old female who returns to the office today in follow-up. She is status post panniculectomy on 06/28/2024. She developed postoperative abscess with subsequent dehiscence along the right lateral border and anterior. She has completed her course of abx. She continues to have some purulent drainage from the midline opening, no drainage from the right side. She has been coming for daily dressing changes in the office on weekdays. She continues to follow her meal plan as directed by Dr. Monzon as well as wound care. She feels well, denies pain. No fevers at home. [facility] Medical History (Updated 08/20/24 @ 13:35 by TIFFANY Fox) Excess skin History of vertigo Nephrolithiasis GERD (gastroesophageal reflux disease) Anxiety Depression BMI 39.0-39.9,adult Morbid obesity Right shoulder injury Left lateral epicondylitis Right shoulder tendonitis Carpal tunnel syndrome on both sides Normal vulvar exam Hemorrhoids Diverticulosis Tubular adenoma Encounter for screening colonoscopy Postmenopausal bleeding Well woman exam BENITO III (cervical intraepithelial neoplasia grade III) with severe dysplasia Carpal tunnel syndrome Acute arthritis Seasonal allergic rhinitis Surgical History S/P panniculectomy 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) Hx of colonoscopy (07/2021) Tubal ligation status Family History Mother HTN (hypertension) A-fib Arthritis Father Diabetes HTN (hypertension) Sister Lupus Social History Household Members: Spouse Housing: House Are you a primary intensive care medicine specialist to a significant other at home: No Do you presently have visiting nurse or other home services: No Alcohol intake: current Alcohol intake frequency: does not drink Patient Tobacco Use Status: Never used Tobacco service: No Current occupational status: employed 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 No drainage whatsoever. Wound bed is clean and pink, 7mm length. The midline opening had some minimal purulence on the iodoform packing. Small amount of purulence expressed with pressure. Maximum depth of 4cm. The area was flushed with 50% hydrogen peroxide and 50% normal saline without difficulty. Previously noted induration appears improved. Neuro General: patient oriented x3 Assessment & Plan Assessment & Plan (1) S/P laparoscopic sleeve gastrectomy: Onset Date: 10/2022 Code(s): Z98.84 - Bariatric surgery status Category: Surgical (2) Post-operative wound abscess: Code(s): T81.49XA - Infection following a procedure, other surgical site, initial encounter Category: Medical (3) S/P panniculectomy: Code(s): Z98.890 - Other specified postprocedural states Category: Surgical Plan Abscess midline continues to heal. No evidence of recurrence. Remain off abx. Continue current treatment plans. Return to clinic tomorrow.
[2024-09-18 12:20] VITALS: BP 124/75; PULSE 63; TEMP 35.9; O2SAT 98; BMI 26.8
--- OUTSIDE RECORDS SUMMARY | 2024-09-18 12:50 | XMS_ITS | Clinical Summary ---
Author Organization [employer] [facility] ity Address [address] [place] [address] Care Team Providers Care Leather Products Supervisor Name Role Phone Unavailable Primary Care [...] complete this topic RSV Immunization Patients Un vienet 20 months Aged Out No longer eligible b ased on patient's age to complete this topic Varicella Vaccines Aged Out No longer eligible based on patient's age to complete this topic
--- OUTSIDE RECORDS SUMMARY | 2024-09-18 12:50 | XMS_ITS | Clinical Summary ---
Author Organization [employer] Address [address] [facility] [address] [place] [address] Care Team Providers Care Ict Security Specialist Name Role Phone Tavo Beckman MD Primary Care Provider + Allergies No known active allergies Medications tiZANidine (Zanaflex) 4 MG capsuleIndicati ons:Acute pain of right shoulder Take 1 capsule (4 mg) by mouth 3 times daily. 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 Resolved Problems Problem Noted Date Diagnosed Date Resolved Date Obesity (BMI 30.0-34.9) 12/27/2022 11/0 05/2023 Assessment & Plan (12/27/2022 3:25 PM EST): Status Post bariatric surgery Significant decrease in BMI Continue Multivitamins Iron + zinc supplementation F/u [facility] obesity clinic F/u in 6 mos Morbid obesity 09/03/2011 12/12/2023 Overview (12/12/2023): Sp Laparoscopic sleeve gastrectomy on 11/04/22 at [facility] Assessment & Plan (06/16/2022 11:20 AM EDT): Discussed re weight reduction options including exercise, life style modifications, diet, referral to market development specialist. Discussed re lower calorie intake, increase dietary fiber I gave her information about weight management program for baritric surgery Encounters Date Type Department Care Team Description 09/13/2024 Refill [facility] [address] [place] [address] Tavo Beckman MD 09/06/2024 Results Follow-Up [facility] [address] [place] [address] Tavo Beckman MD Gram Stain Result 08/22/2024 Orders Only [facility] External Provider, [facility] 08/21/2024 Orders Only GENERIC EXTERNAL DATA DEPARTMENT Provider, Generic External Data 08/13/2024 Orders Only GENERIC EXTERNAL DATA DEPARTMENT Provider, Generic External Data 07/18/2024 Orders Only [facility] [address] [place] [address] Tavo Beckman MD 06/28/2024 Orders Only GENERIC EXTERNAL DATA DEPARTMENT Provider, Generic External Data 06/26/2024 Orders Only GENERIC EXTERNAL DATA DEPARTMENT Provider, Generic External Data 06/22/2024 11:45 AM EDT Office Visit [facility] [address] [place] [address] Tavo Beckman MD Rheumatoid arthritis involving multiple sites with positive rheumatoid factor ([facility]) (Primary Dx); Overweight; Benign essential HTN; Dietary counseling; Exercise counseling 06/22/2024 Travel 06/21/2024 Telephone [facility] [address] [place] [address] Tavo Beckman MD chart prep from Last 3 Months Immunizations Immunization Administration [...] AM EDT Narrative 08/22/2024 12:13 PM EDT [place] [address] [address] Scan Report Signed Patient: Serenity Gómez MR#: [id number] : 1975 Acct:[id number] Age/Sex: 49 / F ADM Date: 08/22/24 Loc: HO.CT Attending Dr: Ted ALLEN Ordering Physician: Ted Beauchamp Date of Service: 08/22/24 Procedure(s): CT abdomen pelvis wo IV con Accession Number(s): [id number] cc: Ted Beauchamp; Tavo Beckman MD Report Number: [id number]: Total DLP = 392.00 mGy-cm EXAMINATION: CT [...] 08/22/2024 12:10 PM EDT RP Dictated By: Donavno Raymundo MD Signed By: <Electronically signed by Donavon Raymundo MD in OV> 08/22/24 1210 DD/ 1127 TD/TT: 08/22/24 1150 Leaf Blender: Procedure Note Donotuseinterpreter, Image - 08/22/[address] [address] [address] Scan Report Signed Patient: Serenity Gómez MMR#: [id number] : 1975Acct:[id number] Age/Sex: 49 / FADM Date: 08/22/24 Loc: HO.CT Attending Dr: Ted ALLEN Ordering Physician: Ted Beauchamp Date of Service: 08/22/24 Procedure(s): CT abdomen pelvis wo IV con Accession Number(s): [id number] cc: Ted Beauchamp; Tavo Beckman MD Report Number: [id number]: Total DLP = 392.00 mGy-cm EXAMINATION: CT [...] 08/22/24 1210 DD/ 1127 TD/TT: 08/22/24 1150 Leaf Blender: [facility] External Provider IMG CT PROCEDURES Final Result * (ABNORMAL) CBC auto differential (08/21/2024 9:32 AM EDT) White Blood Count 12.7(H) 4.8 - 10.8 X10*3/uL [facility] Red Blood Count 3.95(L) 4.20 - 5.50 X10*6/uL [facility] Hemoglobin 11.6(L) 12.0 - 16.0 g/dl [facility] Hematocrit 34.8(L) 37.0 - 47.0 % [facility] Mean Corpuscular Volume 88.1 80.0 - 98.0 fL [facility] Mean Corpuscular Hemoglobin 29.4 27.0 - 33.0 pg [facility] Mean Corpuscular HGB Conc 33.3 31.0 - 35.0 g/dl [facility] Red Cell Distribution Width 11.8 11.0 - 16.0 % [facility] Platelet Count 311 160 - 400 X10*3/uL [facility] Mean Platelet Volume 9.4 9.4 - 12.3 fL [facility] Neutrophils Percent Auto 73.1(H) 45 - 73 % [facility] Imm Gran Pct Auto 0.4 0.0 - 0.4 % [facility] Lymphocytes Percent Auto 16.8(L) 20 - 40 % [facility] Monocytes Percent Auto 9.1 2 - 11 % [facility] Eosinophils Percent Auto 0.4 0 - 4 % [facility] Basophils Percent Auto 0.2 0 - 2 % [facility] NRBC Pct Auto 0.0 0.0 - 0.2 /100WBC [facility] Neutrophils Absolute Auto 9.3(H) 2.0 - 8.3 x10*3/uL [facility] Imm Gran Abs Auto 0.05(H) 0.00 - 0.03 X10*3/uL [facility] Lymphocytes Absolute Auto 2.1 1.2 - 4.9 X10*3/uL [facility] Monocytes Absolute Auto 1.2 0.1 - 1.2 X10*3/uL [facility] Eosinophils Absolute Auto 0.1 0.0 - 0.4 X10*3/uL [facility] Basophils Absolute Auto 0.0 0.0 - 0.2 X10*3/uL [facility] NRBC Abs Auto 0.000 0.0 - 0.012 X10*3/uL [facility] 08/21/2024 9:32 AM EDT 08/21/2024 9:32 AM EDT Generic External Data Provider LAB BLOOD ORDERAB LES Final Result Performing Organization Address [facility] Co de Phone Number [facility] [address] [place] [address] [phone] * Gram Stain Result (08/13/2024 2:00 PM EDT) 08/13/2024 2:00 PM EDT 08/13/2024 2:20 PM EDT Comment:Abdomen Narrative [facility] - 08/16/2024 8:01 AM [...] DERABLE LABS Final Result Performing Organization Address [facility] Co de Phone Number [facility] [address] [place] [phone] * BI Mammogram Screening Tomosynthesis Bilateral (07/18/2024 12:10 PM EDT) Anatomical Region Laterality Modality Breast Bilateral Mammography 07/18/2024 12:1 0 PM EDT Narrative 07/27/2024 1:14 PM EDT [address] [place] [address] Mammography Report Signed Patient: Serenity Gómez MR#: [id number] : 1975 Acct:[id number] Age/Sex: 48 / F ADM Date: 07/18/24 Loc: HO.MAMMO Attending Dr: Tavo Beckman MD Ordering Physician: Tavo Beckman MD Results: 1Ne gative Date of Service: 07/18/24 Follow Up: 1 Year From Orig ina Mammogram Procedure(s): MM tomosynthesis screening BI Accession Number(s): [id number] cc: Tavo Beckman MD EXAMINATION: MM SCREENING [...] 07/27/24 1311 DD/ 1210 TD/TT: 07/18/24 1230 Leaf Blender: Procedure Note Donotuseinterpreter, Image - 07/27/2024 [facility] [address] [place], [place] [address] Mammography Report Signed Patient: Serenity Gómez [facility]#: [id number] : 1975Acct:[id number] Age/Sex: 48 / FADM Date: 07/18/24 Loc: HO.MAMMO Attending Dr: Tavo Beckman MD Ordering Physician: Tavo Beckman MDResults: 1Ne gatelena Date of Service: 07/18/24Follow Up: 1 Year From [facility] Mammogram Procedure(s): MM tomosynthesis screening BI Accession Number(s): [id number] cc: Tavo Beckman MD EXAMINATION: MM SCREENING [...] 07/27/24 1311 DD/ 1210 TD/TT: 07/18/24 1230 Leaf Blender: Tavo Beckman MD IMG BI PROCEDURES Final Result * Gross and Microscopic Level 3 (06/28/2024 12:08 PM EDT) 06/28/2024 12:0 8 PM EDT 06/28/2024 2:20 PM EDT [facility] - 06/29/2024 4:30 PM EDT ----- ------- Name: Serenity Gómez Age/Sex: 48/F : 1975 Unit#: [id number] Attend Dr: Roel Monzon MD Re06/28/24 Status: [facility] Location: [facility] Disch: ----- ------- SPEC : [id number] RECD: 06/28/24-1420 STATUS: ANA MARÍA FERRERA NUM: [id number] AN: 06/28/24-[address]: Roel Monzon MD ENTERED: 06/28/24-7727 SP TYPE: Surgical OTHR DR: Tavo Beckman [...] distinct cysts, lesions or nodules are identified. Key Account Coordinator sections are submitted in cassettes A1-A3. CEDS IHC S/NG Disclaimer NOTE: Unless otherwise stated, all tissue is formalin-fixed and paraffin-embedded. Some or all of the immunohistochemical tests reported herein may have been developed and their performance characteristics determined by [facility]. They have not been cleared or approved by the U.S. Food and Drug Administration (FDA). However, the FDA has determined that such clearance or approval is not necessary. This laboratory is certified under the Clinical Laboratory Improvement Amendments of 1988 (CLIA) as qualified to perform high complexity clinical laboratory testing. Copies To: Tavo Bekcman MD [address] [address] CONTINUED ON NEXT PAGE ----- ------- Name: Serenity Gómez Age/Sex: 48/F : 1975 Unit#: [id number] Attend Dr: Roel Monzon MD Re06/28/24 Status: [facility] Location: [facility] Disch: ----- ------- SPEC : [id number] RECD: 06/28/24-2915 STATUS: ANA MARÍA FERRERA NUM: [id number] AN: 06/28/24-1208 [facility] DR: Roel Monzon MD ENTERED: 06/28/245452 SP TYPE: Surgical OTHR DR: Tavo Beckman MD ORDERED: Gross Micro L3 Copies To: (Continued) Roel Monzon MD [facility] Weight Management Program [address] [place] [address] ----- ------- Signed (signature on file) Guillermina Wakefield MD 06/29/24 1630 ----- ------- END OF REPORT Generic External Data Provider LAB CYTOLOGY ORDE EDWIGE Final Result [facility] [address] [place] [address] [phone] * Type and screen (06/26/2024 10:45 AM EDT) Blood Type AP [facility] Antibody Screen NEGATIVE [facility] 06/26/2024 10:4 5 AM EDT 06/26/2024 11:00 AM EDT Narrative [facility] - 06/26/2024 11:37 AM EDT witnessed by graciasNURSING:Call Blood Bank (ext. [phone]) to band patient on admission.Type and Screen in effect until 2300 on 06-28-2024 Generic External Data Provider LAB BLOOD BANK TE ST ORDERABLES Final Result Performing Organization Address [facility] de Phone Number [facility] [address] [place] [address] [phone] * (ABNORMAL) Lipid Panel, Standard (02/24/2024 8:29 AM EST) Triglycerides 61 <150 mg/dL [facility] Comment:Desirable Triglyceri de: less than 150 mg/dLBorderline High Triglyceride 150-199 mg/dLHigh Triglyceride: 200-499 mg/dLVery High Triglyceride: greater than or equal to 5OO mg/dL Cholesterol 187 <200 mg/dL [facility] Comment:Desirable Cholestero l: less than 200 mg/dLBorderline High Cholesterol: 200-239 mg/dLHigh Cholesterol: greater than 239 mg/dL LDL Cholesterol Calculated 110(H) <100 mg/dL [facility] Comment:Desirable LDL: less than 100 mg/dLNear Optimal/Above Optimal LDL: 110- 129 mg/dLBorderline High LDL: 130-159 mg/dLHigh LDL: 160-189 mg/dLVery High LDL: greater than or equal to 190 mg/dL HDL Cholesterol 65 >40 mg/dL [facility] Comment:Desirable HDL: great er than 40 mg/dL Note: This HDL assay may give artificially low results in patients with liver disease. 02/24/2024 8:29 AM EST 02/24/2024 8:29 AM EST Generic External Data Provider LAB BLOOD ORDERAB LES Final Result Performing Organization Address City/[facility]/ZIP Co de Phone Number [facility] [address] [place] [address] [phone] * Pap Smear (12/29/2022 2:49 PM EST) 12/29/2022 2:49 PM EST 01/03/2023 7:00 AM EST Narrative [facility] - 01/13/2023 4:11 PM EST ----- ------- Name: Serenity Gómez Age/Sex: 47/F : 1975 Unit#: [id number] Attend Dr: Chalino Benton MD Re12/29/22 Status: DEP REF Location: [facility] Disch: ----- ------- SPEC : [id number] RECD: 01/03/23 STATUS: ANA MARÍA FERRERA NUM: [id number] AN: 12/29/[address] [facility] DR: Chalino Benton MD ENTERED: 01/04/23 [...] 59, 66, 68) HPV testing performed by [facility], [place], [place]. See reference laboratory portion of the EMR for entire report. Clinical Information LMP: Postmenopausal Previous PAP test: 2021, ASCUS, HPV+ Material Received ThinPrep-Cervical Copies To: Tavo Beckman MD [address] [place] [phone] Chalino Benton MD [address] [place], [place] [address] [id number] ----- ------- Signed (signature on file) MANUEL Uriarte ([facility]) 01/13/23 1611 ----- ------- END OF REPORT Generic External Data Provider LAB CYTOLOGY NATHALIA GIBBONS Final Result [facility] [address] [place] [phone] * HPV E6/E7 RFLX OLGA 16 18/45 (11/11/2021 3:37 PM EDT) [facility] HPV mRNA E6/E7 rflx Not Detected Not Detected [facility] Comment: Methodology: Fish Cleaner Machine Tender-Mediated Amplification This assay detects E6/E7 viral messenger RNA (mRNA) from 14 high-risk HPV types (16,18,31,33,35,39,45,51,52,56,58,59,66,68). Cervical sources are required for HPV testing. If a vaginal source from a patient who has had a total hysterectomy with removal of cervix was submitted, please contact the testing laboratory for alternative testing options. For additional information, please refer to http://education.Ener-G-Rotors/faq/GFF987y4 (This link if provided for information/ educational purposes only.) THIS TEST WAS PERFORMED AT: [facility] [address] [place] [address],[place] [address] ELIZABETH ANDRES MD 11/11/2021 3:37 PM EDT [...] purpose. For additional information please refer to http://education.mYwindow.HERMEL DELOR/faq/XLR551 (This link is being provided for informational/ educational purposes only.) The performance of this assay has not been clinically validated in patients less than 2 years old. 10/17/2020 1:05 PM EDT us Tavo Beckman MD LAB BLOOD ORDERABLES Fin al Result [facility] [address] from Last 3 Months or Most Recently Relevant to Health Maintenance Insurance [facility]SN [employer]IAL [facility] Care Teams Ict Security Specialist Relationship Specialty Start Date End Date Tavo Beckman MD [address] [place] [phone] PCP - General Family Medicine 12/27/17 [facility] 06/29/24
--- OUTSIDE RECORDS SUMMARY | 2024-09-18 12:50 | XMS_ITS | Clinical Summary ---
Author Organization [facility] Address [address] [place] [address] Care Team Providers Care High Worker Name Role Phone Unavailable Primary Care [...] Encounters Date Type Department Care Team Description 09/11/2024 4:20 PM EDT Office Visit [facility] [address] [place] [phone] Thaddeus Wright RDH from Last 3 Months Social History Tobacco [...] Description 03/15/2025 3:40 PM EST Office Visit [facility] [address] [place] [phone] Thaddeus Wright, [facility] [address] [place] [address] Health Maintenance Due Date Last Done Comments [...] 08/01/2023 Imm-Zoster, Recombinant (1 of 2) 08/01/2023 Lcj-MHQNG-10 (1 - season) 2023 Alcohol and Drug Screen 02/08/2024 Depression Annual Screen 02/08/2024 Hypertension Screening (#1) 02/28/2024 Imm-Influenza (#1) 2024 11/28/2020, 1 , 11/03/2010 Dental Perio Charting 03/14/2025 03/12/2024 , 08/15/2023, 02/09/2023 Dental BW 09/13/2025 09/11/2024, 02/0 04/2024, 08/15/2023, Additional history exists Dental Examination 09/13/2025 09/11/2024, 0 03/12/2024, 08/15/2023, Additional history exists Dental Prophy 09/13/2025 09/11/2024, 02/04/2024, 08/15/2023, Additional history exists Diabetes Screening 02/23/2027 02/24/2024, 0 02/24/2024, 02/24/2024, [...] PM EDT Excessive attrition of teeth ORAL CANCER SCREENING Routine 09/11/2024 4:20 PM EDT Excessive attrition of teeth CASE PRESENTATION SUBS DTL & EXTENSIVE TX PLN Routine 09/11/2024 4:20 PM EDT Excessive attrition of teeth COMP PERIODONTAL EVALUATION - NEW/EST PATIENT Routine 03/12/2024 3:40 PM EST Encounter for dental examination from Last 3 Months or Most Recently Relevant to Health Maintenance Insurance [employer]
== END 2024-09-18 12:26 | disposition home or self-care (01) ==
LOC: HO.HBS 11:55
PROVIDERS: PCP Internal Medicine; Visit Provider Physician Assistant Surgical
DX: E66.3 Overweight (principal); Z68.26 Body mass index [BMI] 26.0-26.9, adult; T81.49XA Infection following a procedure, other surgical site, initial encounter; Z98.84 Bariatric surgery status; Z98.890 Other specified postprocedural states
CPT/HCPCS: 99213

== ENCOUNTER → 2024-09-18 11:55 | Outpatient (BNVA) | payer OTHER, SELFPAY | PROVIDERS: PCP Internal Medicine; Visit Provider Physician Assistant Surgical | DX: T81.49XA Infection following a procedure, other surgical site, initial encounter (principal); Z98.84 Bariatric surgery status | CPT/HCPCS: 99212 ==

== ENCOUNTER 2024-09-19 11:00 | Outpatient (AMB) | payer OTHER, SELFPAY ==
[2024-09-19 11:08] VITALS: BP 138/81; PULSE 89; TEMP 36.5; O2SAT 97; BMI 26.7
--- NOTE | 2024-09-19 11:08 | MHC.OFFVISWM ---
VS Expanded 09/19/24 11:08 BP 138/81 Blood Pressure Location Rt brachial Blood Pressure Position Sitting Pulse 89 Pulse Source Pulse Oximeter Temp 97.7 F Temperature Source Temporal Artery Scan Pulse Oximetry 97 Oxygen Delivery Method Room Air Height 4 ft 11 in Weight 132 lb BMI 26.7 Body Fat % 27.9 Body Fat Mass 36.8 Fat Free Mass 95.0 Visceral Fat Rating 6.0 Body Water % 51.2 Body Water Mass 67.4 Muscle Mass/Score 90.2 Basal Metabolic Rate/Score 1,277 Intake Visit Reasons: OV Panniculectomy 06/28/24 Allergies No Known Allergies Allergy (Verified 08/31/24 14:01) HPI Comments Details: Pleasant 49-year-old female returns to the office today in follow-up. She is status post panniculectomy performed on 03/29/2024. She developed postoperative abscess which has continued to improve. The subdermal space is continuing to decrease in size. Much less purulent drainage. No pain no fever, no redness at the site. [facility] Medical History (Updated 08/20/24 @ 13:35 by TIFFANY Fox) Excess skin History of vertigo Nephrolithiasis GERD (gastroesophageal reflux disease) Anxiety Depression BMI 39.0-39.9,adult Morbid obesity Right shoulder injury Left lateral epicondylitis Right shoulder tendonitis Carpal tunnel syndrome on both sides Normal vulvar exam Hemorrhoids Diverticulosis Tubular adenoma Encounter for screening colonoscopy Postmenopausal bleeding Well woman exam BENITO III (cervical intraepithelial neoplasia grade III) with severe dysplasia Carpal tunnel syndrome Acute arthritis Seasonal allergic rhinitis Surgical History S/P panniculectomy 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) Hx of colonoscopy (07/2021) Tubal ligation status Family History Mother HTN (hypertension) A-fib Arthritis Father Diabetes HTN (hypertension) Sister Lupus Social History Household Members: Spouse Housing: House Are you a primary career technology teacher to a significant other at home: No Do you presently have visiting nurse or other home services: No Alcohol intake: current Alcohol intake frequency: does not drink Patient Tobacco Use Status: Never used Tobacco service: No Current occupational status: employed Current occupation: [employer] Sexual orientation: Straight/Heterosexual Gender identity: Female Female Reproductive History Menstrual Age of Menarche: 10 Physical Exam Vital Signs: Last Vital Signs Temp 97.7 F 09/19/24 11:08 Pulse 89 09/19/24 11:08 BP 138/81 09/19/24 11:08 Pulse Ox 97 09/19/24 11:08 Oxygen Delivery Method Room Air 09/19/24 11:08 BMI result Body Mass Index 26.7 Skin Other: Scant purulence from the opening, mid incision. No induration, erythema, tenderness. Flushed with 50% hydrogen peroxide, 50% normal saline. Packed with quarter inch iodoform packing Assessment & Plan Assessment & Plan (1) Post-operative wound abscess: Code(s): T81.49XA - Infection following a procedure, other surgical site, initial encounter Category: Medical Plan: Patient has post 28 days Bactrim DS 1 p.o. b.i.d. for MRSA culture positive. She has significantly improved. The area continues to decrease in size. No further erythema, induration. No complaints of pain, fever. She continues to follow the meal plan as directed by Dr. Monzon. We will continue to follow clinically, if purulence increases, consideration for another course of oral antibiotics. Return to clinic tomorrow
--- OUTSIDE RECORDS SUMMARY | 2024-09-19 11:56 | XMS_ITS | Clinical Summary ---
Author Organization [email or web address] [facility] ity Address [address] [place] [address] Care Team Providers Care Table Runner Name Role Phone Unavailable Primary Care Provider [...]
--- OUTSIDE RECORDS SUMMARY | 2024-09-19 11:57 | XMS_ITS | Clinical Summary ---
Author Organization [facility] Address [address] [place] [address] Care Team Providers Care Med Surg Rn Name Role Phone Unavailable Primary Care Provider [...] Description 09/11/2024 4:20 PM EDT Office Visit [address] [place] [address] Thaddeus Wright RDH from Last 3 Months [...] Description 03/15/2025 3:40 PM EST Office Visit [address] [place] [address] Thaddeus Wright, [facility] [address] [place] [address] Health Maintenance Due Date Last Done Comments [...] 08/01/2023 Imm-Zoster, Recombinant (1 of 2) 08/01/2023 [id number] (1 - season) 2023 Alcohol and Drug [...]
--- OUTSIDE RECORDS SUMMARY | 2024-09-19 11:57 | XMS_ITS | Clinical Summary ---
Author Organization [employer] Address [address] [facility] [address] [place] [address] Care Team Providers Care Wool Spotter Name Role Phone Tavo Beckman MD Primary Care Provider + Allergies No known active allergies Medications tiZANidine (Zanaflex) 4 MG capsuleIndicati ons:Acute pain of right shoulder Take 1 capsule (4 mg) by mouth 3 times daily. 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 Resolved Problems Problem Noted Date Diagnosed Date Resolved Date Obesity (BMI 30.0-34.9) 12/27/2022 11/0 05/2023 Assessment & Plan (12/27/2022 3:25 PM EST): Status Post bariatric surgery Significant decrease in BMI Continue Multivitamins Iron + zinc supplementation [place] [facility] [place] F/u in 6 mos Morbid obesity 09/03/2011 12/12/2023 Overview (12/12/2023): Sp Laparoscopic sleeve [place]04[place]22 [place] [facility] [place] Assessment & Plan (06/16/2022 11:20 AM EDT): Discussed re weight reduction options including exercise, life style modifications, diet, referral to economic development specialist. Discussed re lower calorie intake, increase dietary fiber I gave her information about weight management program for baritric surgery Encounters Date Type Department Care Team Description 09/13/2024 Refill [facility] [address] [place] [address] Tavo Beckman MD 09/06/2024 Results Follow-Up [facility] [address] [place] [address] Tavo Beckman MD Gram Stain Result 08/22/2024 Orders Only [facility] External Provider, [facility] 08/21/2024 Orders Only GENERIC EXTERNAL DATA DEPARTMENT Provider, Generic External Data 08/13/2024 Orders Only GENERIC EXTERNAL DATA DEPARTMENT Provider, Generic External Data 07/18/2024 Orders Only [facility] [address] [place] [address] Tavo Beckman MD 06/28/2024 Orders Only GENERIC EXTERNAL DATA DEPARTMENT Provider, Generic External Data 06/26/2024 Orders Only GENERIC EXTERNAL DATA DEPARTMENT Provider, Generic External Data 06/22/2024 11:45 AM EDT Office Visit [facility] [address] [place] [address] Tavo Beckman MD Rheumatoid arthritis involving multiple sites with positive rheumatoid factor ([facility]) (Primary Dx); Overweight; Benign essential HTN; Dietary counseling; Exercise counseling 06/22/2024 Travel 06/21/2024 Telephone [facility] [address] [place] [address] Tavo Beckman MD chart prep from Last [...] AM EDT Narrative 08/22/2024 12:13 PM EDT [place] [address] CT Scan Report Signed Patient: Serenity Gómez MR#: [id number] : 1975 Acct:[id number] Age/Sex: 49 / F ADM Date: 08/22/24 Loc: HO.CT Attending Dr: Ted ALLEN Ordering Physician: Ted Beauchamp Date of Service: 08/22/24 Procedure(s): CT abdomen pelvis wo IV con Accession Number(s): [id number] cc: Ted Beauchamp; Tavo Beckman MD Report Number: [id number]: Total DLP = 392.00 mGy-cm EXAMINATION: CT [...] 08/22/24 1210 DD/ 1127 TD/TT: 08/22/24 1150 Assembler Tester: Procedure Note Donotuseinterpreter, Image - 08/22/[address] [address] [address] Scan Report Signed Patient: Serenity Gómez MMR#: [id number] : 1975Acct:[id number] Age/Sex: 49 / FADM Date: 08/22/24 Loc: HO.CT Attending Dr: Ted ALLEN Ordering Physician: Ted Beauchamp Date of Service: 08/22/24 Procedure(s): CT abdomen pelvis wo IV con Accession Number(s): [id number] cc: Ted Beauchamp; Tavo Beckman MD Report Number: [id number]: Total DLP = 392.00 mGy-cm EXAMINATION: CT [...] 08/22/24 1210 DD/ 1127 TD/TT: 08/22/24 1150 Assembler Tester: [facility] External Provider IMG CT PROCEDURES Final Result * (ABNORMAL) CBC auto differential (08/21/2024 9:32 AM EDT) White Blood Count 12.7(H) 4.8 - 10.8 X10*3/uL [facility] Red Blood Count 3.95(L) 4.20 - 5.50 X10*6/uL [facility] Hemoglobin 11.6(L) 12.0 - 16.0 g/dl [facility] Hematocrit 34.8(L) 37.0 - 47.0 % [facility] Mean Corpuscular Volume 88.1 80.0 - 98.0 fL [facility] Mean Corpuscular Hemoglobin 29.4 27.0 - 33.0 pg [facility] Mean Corpuscular HGB Conc 33.3 31.0 - 35.0 g/dl [facility] Red Cell Distribution Width 11.8 11.0 - 16.0 % [facility] Platelet Count 311 160 - 400 X10*3/uL [facility] Mean Platelet Volume 9.4 9.4 - 12.3 fL [facility] Neutrophils Percent Auto 73.1(H) 45 - 73 % [facility] Imm Gran Pct Auto 0.4 0.0 - 0.4 % [facility] Lymphocytes Percent Auto 16.8(L) 20 - 40 % [facility] Monocytes Percent Auto 9.1 2 - 11 % [facility] Eosinophils Percent Auto 0.4 0 - 4 % [facility] Basophils Percent Auto 0.2 0 - 2 % [facility] NRBC Pct Auto 0.0 0.0 - 0.2 /100WBC [facility] Neutrophils Absolute Auto 9.3(H) 2.0 - 8.3 x10*3/uL [facility] Imm Gran Abs Auto 0.05(H) 0.00 - 0.03 X10*3/uL [facility] Lymphocytes Absolute Auto 2.1 1.2 - 4.9 X10*3/uL [facility] Monocytes Absolute Auto 1.2 0.1 - 1.2 X10*3/uL [facility] Eosinophils Absolute Auto 0.1 0.0 - 0.4 X10*3/uL [facility] Basophils Absolute Auto 0.0 0.0 - 0.2 X10*3/uL [facility] NRBC Abs Auto 0.000 0.0 - 0.012 X10*3/uL [facility] 08/21/2024 9:32 AM EDT 08/21/2024 9:32 AM EDT Generic External Data Provider LAB BLOOD ORDERAB LES Final Result Performing Organization Address [facility] Co de Phone Number [facility] [address] [place] [address] [phone] * Gram Stain Result (08/13/2024 2:00 PM EDT) 08/13/2024 2:00 PM EDT 08/13/2024 2:20 PM EDT Comment:Abdomen Narrative [facility] - 08/16/2024 8:01 AM [...] DERABLE LABS Final Result Performing Organization Address [facility] Co de Phone Number [facility] [address] [place] [phone] * BI Mammogram Screening Tomosynthesis Bilateral (07/18/2024 12:10 PM EDT) Anatomical Region Laterality Modality Breast Bilateral Mammography 07/18/2024 12:1 0 PM EDT Narrative 07/27/2024 1:14 PM EDT [address] [place] [address] Mammography Report Signed Patient: Serenity Gómez MR#: [id number] : 1975 Acct:[id number] Age/Sex: 48 / F ADM Date: 07/18/24 Loc: HO.MAMMO Attending Dr: Tavo Beckman MD Ordering Physician: Tavo Beckman MD Results: 1Ne gative Date of Service: 07/18/24 Follow Up: 1 Year From Orig ina Mammogram Procedure(s): MM tomosynthesis screening BI Accession Number(s): [id number] cc: Tavo Beckman MD EXAMINATION: MM SCREENING [...] 07/27/24 1311 DD/ 1210 TD/TT: 07/18/24 1230 Assembler Tester: Procedure Note Donotuseinterpreter, Image - 07/27/2024 [facility] [address] [place], [place] [address] Mammography Report Signed Patient: Serenity Gómez [facility]#: [id number] : 1975Acct:[id number] Age/Sex: 48 / FADM Date: 07/18/24 Loc: HO.MAMMO Attending Dr: Tavo Beckman MD Ordering Physician: Tavo Beckman MDResults: 1Ne gatelena Date of Service: 07/18/24Follow Up: 1 Year From [facility] Mammogram Procedure(s): MM tomosynthesis screening BI Accession Number(s): [id number] cc: Tavo Beckman MD EXAMINATION: MM SCREENING [...] 07/27/24 1311 DD/ 1210 TD/TT: 07/18/24 1230 Assembler Tester: Tavo Beckman MD IMG BI PROCEDURES Final Result * Gross and Microscopic Level 3 (06/28/2024 12:08 PM EDT) 06/28/2024 12:0 8 PM EDT 06/28/2024 2:20 PM EDT [facility] - 06/29/2024 4:30 PM EDT ----- ------- Name: Serenity Gómez Age/Sex: 48/F : 1975 Unit#: [id number] Attend Dr: Roel Monzon MD Re06/28/24 Status: [facility] Location: [facility] Disch: ----- ------- SPEC : [id number] RECD: 06/28/24-1420 STATUS: ANA MARÍA FERRERA NUM: [id number] AN: 06/28/24-[address]: Roel Monzon MD ENTERED: 06/28/24-6436 SP TYPE: Surgical OTHR DR: Tavo Beckman [...] distinct cysts, lesions or nodules are identified. Plate Keeper sections are submitted in cassettes A1-A3. CEDS IHC S/NG Disclaimer NOTE: Unless otherwise stated, all tissue is formalin-fixed and paraffin-embedded. Some or all of the immunohistochemical tests reported herein may have been developed and their performance characteristics determined by [facility]. They have not been cleared or approved by the U.S. Food and Drug Administration (FDA). However, the FDA has determined that such clearance or approval is not necessary. This laboratory is certified under the Clinical Laboratory Improvement Amendments of 1988 (CLIA) as qualified to perform high complexity clinical laboratory testing. Copies To: Tavo Beckman MD [address] [address] CONTINUED ON NEXT PAGE ----- ------- Name: Serenity Gómez Age/Sex: 48/F : 1975 Unit#: [id number] Attend Dr: Roel Monzon MD Re06/28/24 Status: [facility] Location: [facility] Disch: ----- ------- SPEC : [id number] RECD: 06/28/24-5199 STATUS: ANA MARÍA FERRERA NUM: [id number] AN: 06/28/24-[address] [facility] [address]: Roel Monzon MD ENTERED: 06/28/245332 SP TYPE: Surgical OTHR DR: Tavo Beckman MD ORDERED: Gross Micro L3 Copies To: (Continued) Roel Monzon MD [facility] [place] [facility] [address] [place] [address] ----- ------- Signed (signature on file) Guillermina Wakefield MD 06/29/24 1630 ----- ------- END OF REPORT Generic External Data Provider LAB CYTOLOGY ORDE EDWIGE Final Result [facility] [address] [place] [address] [phone] * Type and screen (06/26/2024 10:45 AM EDT) Blood Type AP [facility] Antibody Screen NEGATIVE [facility] 06/26/2024 10:4 5 AM EDT 06/26/2024 11:00 AM EDT Narrative [facility] - 06/26/2024 11:37 AM EDT witnessed by graciasNURSING:Call Blood Bank (ext. [phone]) to band patient on admission.Type and Screen in effect until 2300 on 06-28-2024 Generic External Data Provider LAB BLOOD BANK TE ST ORDERABLES Final Result Performing Organization Address [facility] de Phone Number [facility] [address] [place] [address] [phone] * (ABNORMAL) Lipid Panel, Standard (02/24/2024 8:29 AM EST) Triglycerides 61 <150 mg/dL [facility] Comment:Desirable Triglyceri de: less than 150 mg/dLBorderline High Triglyceride 150-199 mg/dLHigh Triglyceride: 200-499 mg/dLVery High Triglyceride: greater than or equal to 5OO mg/dL Cholesterol 187 <200 mg/dL [facility] Comment:Desirable Cholestero l: less than 200 mg/dLBorderline High Cholesterol: 200-239 mg/dLHigh Cholesterol: greater than 239 mg/dL LDL Cholesterol Calculated 110(H) <100 mg/dL [facility] Comment:Desirable LDL: less than 100 mg/dLNear Optimal/Above Optimal LDL: 110- 129 mg/dLBorderline High LDL: 130-159 mg/dLHigh LDL: 160-189 mg/dLVery High LDL: greater than or equal to 190 mg/dL HDL Cholesterol 65 >40 mg/dL [facility] Comment:Desirable HDL: great er than 40 mg/dL Note: This HDL assay may give artificially low results in patients with liver disease. 02/24/2024 8:29 AM EST 02/24/2024 8:29 AM EST Generic External Data Provider LAB BLOOD ORDERAB LES Final Result Performing Organization Address City/[facility]/ZIP Co de Phone Number [facility] [address] [place] [address] [phone] * Pap Smear (12/29/2022 2:49 PM EST) 12/29/2022 2:49 PM EST 01/03/2023 7:00 AM EST Narrative [facility] - 01/13/2023 4:11 PM EST ----- ------- Name: Serenity Gómez Age/Sex: 47/F : 1975 Unit#: [id number] Attend Dr: Chalino Benton MD Re12/29/22 Status: DEP REF Location: [facility] Disch: ----- ------- SPEC : [id number] RECD: 01/03/23 STATUS: ANA MARÍA FERRERA NUM: [id number] AN: 12/29/[address] [facility] [address]: Chalino Benton MD ENTERED: 01/04/23 [...] 59, 66, 68) HPV testing performed by [employer] [place], [place]. See reference laboratory portion of the EMR for entire report. Clinical Information LMP: Postmenopausal Previous PAP test: 2021, ASCUS, HPV+ Material Received ThinPrep-Cervical Copies To: Tavo Beckman MD [address] [place] [phone] Chalino Benton MD [address] [place], [place] [address] [phone] ----- ------- Signed (signature on file) MANUEL Uriarte ([facility]) 01/13/23 1611 ----- ------- END OF REPORT Generic External Data Provider LAB CYTOLOGY NATHALIA GIBBONS Final Result [facility] [address] [place] [phone] * HPV E6/E7 RFLX OLGA 16 18/45 (11/11/2021 3:37 PM EDT) [facility] HPV mRNA E6/E7 rflx Not Detected Not Detected [facility] Comment: Methodology: Excavator Operator-Mediated Amplification This assay detects E6/E7 viral messenger RNA (mRNA) from 14 high-risk HPV types (16,18,31,33,35,39,45,51,52,56,58,59,66,68). Cervical sources are required for HPV testing. If a vaginal source from a patient who has had a total hysterectomy with removal of cervix was submitted, please contact the testing laboratory for alternative testing options. For additional information, please refer to http://education.Breezeplay/faq/KPA479c5 (This link if provided for information/ educational purposes only.) THIS TEST WAS PERFORMED AT: [facility] [address] [place] [address],[place] [address] ELIZABETH ANDRES MD 11/11/2021 3:37 PM EDT [...] purpose. For additional information please refer to http://education.[employer].Veoh/faq/CHY168 (This link is being provided for informational/ educational purposes only.) The performance of this assay has not been clinically validated in patients less than 2 years old. 10/17/2020 1:05 PM EDT us Tavo Beckman MD LAB BLOOD ORDERABLES Fin al Result [facility] [address] from Last 3 Months or Most Recently Relevant to Health Maintenance Insurance [facility] Care Teams Wool Spotter Relationship Specialty Start Date End Date Tavo Beckman MD [address] [place] [phone] PCP - General Family Medicine 12/27/17 [facility] 06/29/24
== END 2024-09-19 11:34 | disposition home or self-care (01) ==
LOC: HO.HBS 11:01
PROVIDERS: PCP Internal Medicine; Visit Provider Physician Assistant Surgical
DX: T81.49XA Infection following a procedure, other surgical site, initial encounter (principal)
CPT/HCPCS: 99024

== ENCOUNTER → 2024-09-19 11:00 | Outpatient (BNVA) | payer OTHER, SELFPAY | PROVIDERS: PCP Internal Medicine; Visit Provider Physician Assistant Surgical | DX: T81.49XA Infection following a procedure, other surgical site, initial encounter (principal) | CPT/HCPCS: 99212 ==

== ENCOUNTER 2024-09-20 10:11 | Outpatient (AMB) | payer OTHER, SELFPAY ==
--- NOTE | 2024-09-20 10:29 | A.OFFVIS_ITS ---
VS Expanded 09/20/24 10:41 BP 121/75 Blood Pressure Location Rt brachial Blood Pressure Position Sitting Pulse 68 Pulse Source Pulse Oximeter Temp 96.8 F Temperature Source Temporal Artery Scan Pulse Oximetry 98 Oxygen Delivery Method Room Air Height 4 ft 11 in Weight 132 lb 6.4 oz BMI 26.7 Body Fat % 30.2 Body Fat Mass 40.0 Fat Free Mass 92.4 Visceral Fat Rating 6.0 Body Water % 49.7 Body Water Mass 65.6 Muscle Mass/Score 87.8 Basal Metabolic Rate/Score 1,252 Intake Visit Reasons: OV Panniculectomy 06/28/24 Allergies No Known Allergies Allergy (Verified 08/31/24 14:01) HPI Comments Details: 49-year-old female returns to the office today in follow-up. She is status post panniculectomy on 06/28/2024 with postoperative abscess formation. This has continued to improve with daily dressing changes and packing with iodoform gauze. She is about 10 days post antibiotic completion, 28 days of Bactrim. Minimal purulence noted. No induration, no fevers, no chills, no erythema. [facility] Medical History (Updated 08/20/24 @ 13:35 by TIFFANY Fox) Excess skin History of vertigo Nephrolithiasis GERD (gastroesophageal reflux disease) Anxiety Depression BMI 39.0-39.9,adult Morbid obesity Right shoulder injury Left lateral epicondylitis Right shoulder tendonitis Carpal tunnel syndrome on both sides Normal vulvar exam Hemorrhoids Diverticulosis Tubular adenoma Encounter for screening colonoscopy Postmenopausal bleeding Well woman exam BENITO III (cervical intraepithelial neoplasia grade III) with severe dysplasia Carpal tunnel syndrome Acute arthritis Seasonal allergic rhinitis Surgical History S/P panniculectomy 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) Hx of colonoscopy (07/2021) Tubal ligation status Family History Mother HTN (hypertension) A-fib Arthritis Father Diabetes HTN (hypertension) Sister Lupus Social History Household Members: Spouse Housing: House Are you a primary managed care liaison to a significant other at home: No Do you presently have visiting nurse or other home services: No Alcohol intake: current Alcohol intake frequency: does not drink Patient Tobacco Use Status: Never used Tobacco service: No Current occupational status: employed 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 This was flushed with 50% hydrogen peroxide 50% normal saline. Packed with quarter-inch iodoform gauze. Assessment & Plan Assessment & Plan (1) Post-operative wound abscess: Code(s): T81.49XA - Infection following a procedure, other surgical site, initial encounter Category: Medical Plan Patient continues to show improvement. Continue current treatment plans. Return to clinic tomorrow.
[2024-09-20 10:41] VITALS: BP 121/75; PULSE 68; TEMP 36; O2SAT 98; BMI 26.7
--- OUTSIDE RECORDS SUMMARY | 2024-09-20 10:54 | XMS_ITS | Clinical Summary ---
Author Organization [employer] [facility] ity Address [address] [place] [address] Care Team Providers Care Foot And Ankle Surgeon Name Role Phone Unavailable Primary Care Provider [...]
--- OUTSIDE RECORDS SUMMARY | 2024-09-20 10:54 | XMS_ITS | Clinical Summary ---
Author Organization [facility] Address [address] [place] [address] Care Team Providers Care Entry Level Finance Name Role Phone Unavailable Primary Care Provider [...] Description 09/11/2024 4:20 PM EDT Office Visit [facility] [address] [place] [address] Thaddeus Wright RDH from Last 3 Months [...] Description 03/15/2025 3:40 PM EST Office Visit [facility] [address] [place] [address] Thaddeus Wright, [address] [place] [address] Health Maintenance Due Date Last Done Comments [...] 08/01/2023 Imm-Zoster, Recombinant (1 of 2) 08/01/2023 [id number] (1 - season) 2023 Alcohol and Drug [...]
--- OUTSIDE RECORDS SUMMARY | 2024-09-20 10:54 | XMS_ITS | Clinical Summary ---
Author Organization [employer] Address [address] [facility] [address] [place] [address] Care Team Providers Care Business Technology Analyst Name Role Phone Tavo Beckman MD Primary Care Provider + Allergies No known active allergies Medications tiZANidine (Zanaflex) 4 MG capsuleIndicati ons:Acute pain of right shoulder Take 1 capsule (4 mg) by mouth 3 times daily. 90 capsule 1 3 Active ergocalciferol (Vitamin D2) 1.25 MG (23997 UT) capsule TAKE 1 CAPSULE BY MOUTH [...] (12/12/2023 1:26 PM EST): On 10/2022 at [facility] Overweight 12/12/2023 Assessment & [...] Resolved, last PAP was wnl Fu w/ DEVELOPMENT AND PLANNING ENGINEER for PAP smear 12/2023 Assessment & Plan (06/16/2022 11:21 AM EDT): PAP smear on 12/03/21 showed NIL/+HPV FU with DEVELOPMENT AND PLANNING ENGINEER on 11/2022 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 Resolved Problems Problem Noted Date Diagnosed Date Resolved Date Obesity (BMI 30.0-34.9) 12/27/2022 11/0 05/2023 Assessment & Plan (12/27/2022 3:25 PM EST): Status Post bariatric surgery Significant decrease in BMI Continue Multivitamins Iron + zinc supplementation F/u [facility] obesity clinic F/u in 6 mos Morbid obesity 09/03/2011 12/12/2023 Overview (12/12/2023): Sp Laparoscopic sleeve gastrectomy on 11/04/22 at [facility] Assessment & Plan (06/16/2022 11:20 AM EDT): Discussed re weight reduction options including exercise, life style modifications, diet, referral to home specialist. Discussed re lower calorie intake, increase dietary fiber I gave her information about weight management program for baritric surgery Encounters Date Type Department Care Team Description 09/13/2024 Refill [facility] [address] [place] [address] Tavo Beckman MD 09/06/2024 Results Follow-Up [facility] [address] [place] [address] Tavo Beckman MD Gram Stain Result 08/22/2024 Orders Only [facility] External Provider, [facility] 08/21/2024 Orders Only GENERIC EXTERNAL DATA DEPARTMENT Provider, Generic External Data 08/13/2024 Orders Only GENERIC EXTERNAL DATA DEPARTMENT Provider, Generic External Data 07/18/2024 Orders Only [facility] [address] [place] [address] Tavo Beckman MD 06/28/2024 Orders Only GENERIC EXTERNAL DATA DEPARTMENT Provider, Generic External Data 06/26/2024 Orders Only GENERIC EXTERNAL DATA DEPARTMENT Provider, Generic External Data 06/22/2024 11:45 AM EDT Office Visit [facility] [address] [place] [address] Tavo Beckman MD Rheumatoid arthritis involving multiple sites with positive rheumatoid factor ([facility]) (Primary Dx); Overweight; Benign essential HTN; Dietary counseling; Exercise counseling 06/22/2024 Travel 06/21/2024 Telephone [facility] [address] [place] [address] Tavo Beckman MD chart prep from Last [...] AM EDT Narrative 08/22/2024 12:13 PM EDT [place] [address] [address] Scan Report Signed Patient: Serenity Gómez MR#: [id number] : 1975 Acct:[id number] Age/Sex: 49 / F ADM Date: 08/22/24 Loc: HO.CT Attending Dr: Ted ALLEN Ordering Physician: Ted Beauchamp Date of Service: 08/22/24 Procedure(s): CT abdomen pelvis wo IV con Accession Number(s): [id number] cc: Ted Beauchamp; Tavo Beckman MD Report Number: [id number]: Total DLP = 392.00 mGy-cm EXAMINATION: CT [...] 08/22/24 1210 DD/ 1127 TD/TT: 08/22/24 1150 Director Occupational: Procedure Note Donotuseinterpreter, Image - 08/22/[address] [address] [address] Scan Report Signed Patient: Serenity Gómez MMR#: [id number] : 1975Acct:[id number] Age/Sex: 49 / FADM Date: 08/22/24 Loc: HO.CT Attending Dr: Ted ALLEN Ordering Physician: Ted Beauchamp Date of Service: 08/22/24 Procedure(s): CT abdomen pelvis wo IV con Accession Number(s): [id number] cc: Ted Beauchamp; Tavo Beckman MD Report Number: [id number]: Total DLP = 392.00 mGy-cm EXAMINATION: CT [...] 08/22/24 1210 DD/ 1127 TD/TT: 08/22/24 1150 Director Occupational: [facility] External Provider IMG CT PROCEDURES Final Result * (ABNORMAL) CBC auto differential (08/21/2024 9:32 AM EDT) White Blood Count 12.7(H) 4.8 - 10.8 X10*3/uL [facility] Red Blood Count 3.95(L) 4.20 - 5.50 X10*6/uL [facility] Hemoglobin 11.6(L) 12.0 - 16.0 g/dl [facility] Hematocrit 34.8(L) 37.0 - 47.0 % [facility] Mean Corpuscular Volume 88.1 80.0 - 98.0 fL [facility] Mean Corpuscular Hemoglobin 29.4 27.0 - 33.0 pg [facility] Mean Corpuscular HGB Conc 33.3 31.0 - 35.0 g/dl [facility] Red Cell Distribution Width 11.8 11.0 - 16.0 % [facility] Platelet Count 311 160 - 400 X10*3/uL [facility] Mean Platelet Volume 9.4 9.4 - 12.3 fL [facility] Neutrophils Percent Auto 73.1(H) 45 - 73 % [facility] Imm Gran Pct Auto 0.4 0.0 - 0.4 % [facility] Lymphocytes Percent Auto 16.8(L) 20 - 40 % [facility] Monocytes Percent Auto 9.1 2 - 11 % [facility] Eosinophils Percent Auto 0.4 0 - 4 % [facility] Basophils Percent Auto 0.2 0 - 2 % [facility] NRBC Pct Auto 0.0 0.0 - 0.2 /100WBC [facility] Neutrophils Absolute Auto 9.3(H) 2.0 - 8.3 x10*3/uL [facility] Imm Gran Abs Auto 0.05(H) 0.00 - 0.03 X10*3/uL [facility] Lymphocytes Absolute Auto 2.1 1.2 - 4.9 X10*3/uL [facility] Monocytes Absolute Auto 1.2 0.1 - 1.2 X10*3/uL [facility] Eosinophils Absolute Auto 0.1 0.0 - 0.4 X10*3/uL [facility] Basophils Absolute Auto 0.0 0.0 - 0.2 X10*3/uL [facility] NRBC Abs Auto 0.000 0.0 - 0.012 X10*3/uL [facility] 08/21/2024 9:32 AM EDT 08/21/2024 9:32 AM EDT Generic External Data Provider LAB BLOOD ORDERAB LES Final Result Performing Organization Address [facility] Co de Phone Number [facility] [address] [place] [address] [phone] * Gram Stain Result (08/13/2024 2:00 PM EDT) 08/13/2024 2:00 PM EDT 08/13/2024 2:20 PM EDT Comment:Abdomen Narrative [facility] - 08/16/2024 8:01 AM EDT Gram [...] DERABLE LABS Final Result Performing Organization Address [facility] Co de Phone Number [facility] [address] [place] [phone] * BI Mammogram Screening Tomosynthesis Bilateral (07/18/2024 12:10 PM EDT) Anatomical Region Laterality Modality Breast Bilateral Mammography 07/18/2024 12:1 0 PM EDT Narrative 07/27/2024 1:14 PM EDT [address] [place] [address] Mammography Report Signed Patient: Serenity Gómez MR#: [id number] : 1975 Acct:[id number] Age/Sex: 48 / F ADM Date: 07/18/24 Loc: HO.MAMMO Attending Dr: Tavo Beckman MD Ordering Physician: Tavo Beckman MD Results: 1Ne gative Date of Service: 07/18/24 Follow Up: 1 Year From Orig ina Mammogram Procedure(s): MM tomosynthesis screening BI Accession Number(s): [id number] cc: Tavo Beckman MD EXAMINATION: MM SCREENING [...] 07/27/24 1311 DD/ 1210 TD/TT: 07/18/24 1230 Director Occupational: Procedure Note Donotuseinterpreter, Image - 07/27/2024 [facility] [address] [place], [place] [address] Mammography Report Signed Patient: Serenity Gómez [facility]#: [id number] : 1975Acct:[id number] Age/Sex: 48 / FADM Date: 07/18/24 Loc: HO.MAMMO Attending Dr: Tavo Beckman MD Ordering Physician: Tavo Beckman MDResults: 1Ne gatelena Date of Service: 07/18/24Follow Up: 1 Year From [facility] Mammogram Procedure(s): MM tomosynthesis screening BI Accession Number(s): [id number] cc: Tavo Beckman MD EXAMINATION: MM SCREENING [...] 07/27/24 1311 DD/ 1210 TD/TT: 07/18/24 1230 Director Occupational: Tavo Beckman MD IMG BI PROCEDURES Final Result * Gross and Microscopic Level 3 (06/28/2024 12:08 PM EDT) 06/28/2024 12:0 8 PM EDT 06/28/2024 2:20 PM EDT [facility] - 06/29/2024 4:30 PM EDT ----- ------- Name: Serenity Gómez Age/Sex: 48/F : 1975 Unit#: [id number] Attend Dr: Roel Monzon MD Re06/28/24 Status: [facility] Location: [facility] Disch: ----- ------- SPEC : [id number] RECD: 06/28/24-1420 STATUS: ANA MARÍA FERRERA NUM: [id number] AN: 06/28/24-[address]: Roel Monzon MD ENTERED: 06/28/24-7915 SP TYPE: Surgical OTHR DR: Tavo Beckman [...] distinct cysts, lesions or nodules are identified. Recruiting Operations Consultant sections are submitted in cassettes A1-A3. CEDS IHC S/NG Disclaimer NOTE: Unless otherwise stated, all tissue is formalin-fixed and paraffin-embedded. Some or all of the immunohistochemical tests reported herein may have been developed and their performance characteristics determined by [facility]. They have not been cleared or approved by the U.S. Food and Drug Administration (FDA). However, the FDA has determined that such clearance or approval is not necessary. This laboratory is certified under the Clinical Laboratory Improvement Amendments of 1988 (CLIA) as qualified to perform high complexity clinical laboratory testing. Copies To: Tavo Beckman MD [address] [address] CONTINUED ON NEXT PAGE ----- ------- Name: Serenity Gómez Age/Sex: 48/F : 1975 Unit#: [id number] Attend Dr: Roel Monzon MD Re06/28/24 Status: [facility] Location: [facility] Disch: ----- ------- SPEC : [id number] RECD: 06/28/24-9084 STATUS: ANA MARÍA FERRERA NUM: [id number] AN: 06/28/24-[address] [facility] [address]: Roel Monzon MD ENTERED: 06/28/247724 SP TYPE: Surgical OTHR DR: Tavo Beckman MD ORDERED: Gross Micro L3 Copies To: (Continued) Roel Monzon MD [facility] Weight Management Program [address] [place] [address] ----- ------- Signed (signature on file) Guillermina Wakefield MD 06/29/24 1630 ----- ------- END OF REPORT Generic External Data Provider LAB CYTOLOGY ORDE EDWIGE Final Result [facility] [address] [place] [address] [phone] * Type and screen (06/26/2024 10:45 AM EDT) Blood Type AP [facility] Antibody Screen NEGATIVE [facility] 06/26/2024 10:4 5 AM EDT 06/26/2024 11:00 AM EDT Narrative [facility] - 06/26/2024 11:37 AM EDT witnessed by graciasNURSING:Call Blood Bank (ext. [phone]) to band patient on admission.Type and Screen in effect until 2300 on 06-28-2024 Generic External Data Provider LAB BLOOD BANK TE ST ORDERABLES Final Result Performing Organization Address [facility] de Phone Number [facility] [address] [place] [address] [phone] * (ABNORMAL) Lipid Panel, Standard (02/24/2024 8:29 AM EST) Triglycerides 61 <150 mg/dL [facility] Comment:Desirable Triglyceri de: less than 150 mg/dLBorderline High Triglyceride 150-199 mg/dLHigh Triglyceride: 200-499 mg/dLVery High Triglyceride: greater than or equal to 5OO mg/dL Cholesterol 187 <200 mg/dL [facility] Comment:Desirable Cholestero l: less than 200 mg/dLBorderline High Cholesterol: 200-239 mg/dLHigh Cholesterol: greater than 239 mg/dL LDL Cholesterol Calculated 110(H) <100 mg/dL [facility] Comment:Desirable LDL: less than 100 mg/dLNear Optimal/Above Optimal LDL: 110- 129 mg/dLBorderline High LDL: 130-159 mg/dLHigh LDL: 160-189 mg/dLVery High LDL: greater than or equal to 190 mg/dL HDL Cholesterol 65 >40 mg/dL [facility] Comment:Desirable HDL: great er than 40 mg/dL Note: This HDL assay may give artificially low results in patients with liver disease. 02/24/2024 8:29 AM EST 02/24/2024 8:29 AM EST Generic External Data Provider LAB BLOOD ORDERAB LES Final Result Performing Organization Address City/[facility]/ZIP Co de Phone Number [facility] [address] [place] [address] [phone] * Pap Smear (12/29/2022 2:49 PM EST) 12/29/2022 2:49 PM EST 01/03/2023 7:00 AM EST Narrative [facility] - 01/13/2023 4:11 PM EST ----- ------- Name: Serenity Gómez Age/Sex: 47/F : 1975 Unit#: [id number] Attend Dr: Chalino Benton MD Re12/29/22 Status: DEP REF Location: [facility] Disch: ----- ------- SPEC : [id number] RECD: 01/03/23 STATUS: ANA MARÍA FERRERA NUM: [id number] AN: 12/29/[address] [facility] [address]: Chalino Benton MD ENTERED: 01/04/23 [...] 59, 66, 68) HPV testing performed by [facility] [employer] [facility], [place], [place]. See reference laboratory portion of the EMR for entire report. Clinical Information LMP: Postmenopausal Previous PAP test: 2021, ASCUS, HPV+ Material Received ThinPrep-Cervical Copies To: Tavo Beckman MD [address] [place] [phone] Chalino Benton MD [address] [place], [place] [address]Roger [address] [phone] ----- ------- Signed (signature on file) MANUEL Uriarte ([facility]) 01/13/23 1611 ----- ------- END OF REPORT Generic External Data Provider LAB CYTOLOGY NATHALIA GIBBONS Final Result [facility] [address] [place] [phone] * HPV E6/E7 RFLX OLGA 16 18/45 (11/11/2021 3:37 PM EDT) [facility] HPV mRNA E6/E7 rflx Not Detected Not Detected [facility] Comment: Methodology: Dipper And Baker-Mediated Amplification This assay detects E6/E7 viral messenger RNA (mRNA) from 14 high-risk HPV types (16,18,31,33,35,39,45,51,52,56,58,59,66,68). Cervical sources are required for HPV testing. If a vaginal source from a patient who has had a total hysterectomy with removal of cervix was submitted, please contact the testing laboratory for alternative testing options. For additional information, please refer to http://education.Voya.ge/faq/STC812f9 (This link if provided for information/ educational purposes only.) THIS TEST WAS PERFORMED AT: [facility] [address] [place] [address],[place] [address] ELIZABETH ANDRES MD 11/11/2021 3:37 PM EDT Chalino Benton MD HISTORICAL/NON ORDERABLE LABS Fi nal Result [facility] * Hm Colonoscopy (07/08/2021 9:47 AM EDT) Historical Provider HEALTH MAINTENANCE Final Result * HIV 1/2 ANTIGEN/ANTIBODY,FOURTH GENERATION W/RFL (10/17/2020 1:05 PM EDT) HIV-1/2 ANTIGEN AND ANTIBODIES, 4TH GENERATION W/ REFLEX NON-REACT ELENA NON-REACT ELENA [facility] Comment: HIV-1 antigen [...] purpose. For additional information please refer to http://education.[employer].Mobile Safe Case/faq/FRT444 (This link is being provided for informational/ educational purposes only.) The performance of this assay has not been clinically validated in patients less than 2 years old. 10/17/2020 1:05 PM EDT us Tavo Beckman MD LAB BLOOD ORDERABLES Fin al Result [facility] [address] from Last 3 Months or Most Recently Relevant to Health Maintenance Insurance [facility] Care Teams Business Technology Analyst Relationship Specialty Start Date End Date Tavo Beckman MD [address] [place] [phone] PCP - General Family Medicine 12/27/17 [facility] 06/29/24
== END 2024-09-20 10:31 | disposition home or self-care (01) ==
PROVIDERS: PCP Internal Medicine; Visit Provider Physician Assistant Surgical
DX: T81.49XA Infection following a procedure, other surgical site, initial encounter (principal)
CPT/HCPCS: 99024

== ENCOUNTER → 2024-09-20 10:11 | Outpatient (BNVA) | payer OTHER, SELFPAY | PROVIDERS: PCP Internal Medicine; Visit Provider Physician Assistant Surgical | DX: T81.49XA Infection following a procedure, other surgical site, initial encounter (principal) | CPT/HCPCS: 99212 ==

== ENCOUNTER 2024-09-21 11:05 | Outpatient (AMB) | payer OTHER, SELFPAY ==
--- NOTE | 2024-09-21 11:01 | MHC.OFFVISWM ---
VS Expanded 09/21/24 11:25 BP 137/77 Blood Pressure Location Rt brachial Blood Pressure Position Sitting Pulse 64 Pulse Source Pulse Oximeter Temp 97.6 F Temperature Source Temporal Artery Scan Pulse Oximetry 99 Oxygen Delivery Method Room Air Height 4 ft 11 in Weight 132 lb BMI 26.7 Body Fat % 29.6 Body Fat Mass 39.0 Fat Free Mass 92.8 Visceral Fat Rating 6.0 Body Water % 50.0 Body Water Mass 66.0 Muscle Mass/Score 88.2 Basal Metabolic Rate/Score 1,255 Intake Visit Reasons: OV Panniculectomy 06/28/24 Allergies No Known Allergies Allergy (Verified 09/21/24 11:27) HPI Comments Details: Patient is a pleasant 49-year-old female who returns to the office today in follow-up. She is status post panniculectomy on 06/28/2024. She did develop abscess in the midline, treated with 28 days of Bactrim DS 1 tab p.o. b.i.d. for MRSA culture. She has continue to improve both subjectively and objectively. Patient continues to have some purulent drainage from the opening of the midline incision. This has persistently been slightly more since discontinuance of the Bactrim. Continues to have no complaints of pain, fever, chills, redness. [facility] Medical History (Updated 08/20/24 @ 13:35 by TIFFANY Fox) Excess skin History of vertigo Nephrolithiasis GERD (gastroesophageal reflux disease) Anxiety Depression BMI 39.0-39.9,adult Morbid obesity Right shoulder injury Left lateral epicondylitis Right shoulder tendonitis Carpal tunnel syndrome on both sides Normal vulvar exam Hemorrhoids Diverticulosis Tubular adenoma Encounter for screening colonoscopy Postmenopausal bleeding Well woman exam BENITO III (cervical intraepithelial neoplasia grade III) with severe dysplasia Carpal tunnel syndrome Acute arthritis Seasonal allergic rhinitis Surgical History S/P panniculectomy 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) Hx of colonoscopy (07/2021) Tubal ligation status Family History Mother HTN (hypertension) A-fib Arthritis Father Diabetes HTN (hypertension) Sister Lupus Social History Household Members: Spouse Housing: House Are you a primary janitor caretaker to a significant other at home: No Do you presently have visiting nurse or other home services: No Alcohol intake: current Alcohol intake frequency: does not drink Patient Tobacco Use Status: Never used Tobacco service: No Current occupational status: employed 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 No surrounding erythema, no fluctuance, no induration. The area was flushed with 50% hydrogen peroxide 50% normal saline, packed with quarter-inch iodoform packing strip. Assessment & Plan Assessment & Plan (1) Post-operative wound abscess: Code(s): T81.49XA - Infection following a procedure, other surgical site, initial encounter Category: Medical Plan: Overall, patient is doing well however continued mild purulent drainage. We will prescribe Bactrim DS 1 tab p.o. b.i.d. for 10 days. Continue with daily wound care. Return to clinic Tuesday. Medications: New sulfamethoxazole-trimethoprim 800-160 mg (Bactrim DS) 1 tab PO BID 20 tabs 0RF 10 days
--- OUTSIDE RECORDS SUMMARY | 2024-09-21 11:16 | XMS_ITS | Clinical Summary ---
Author Organization [facility] Address [address] [place] [address] Care Team Providers Care Coat Finisher Name Role Phone Unavailable Primary Care Provider [...] EDT Office Visit [facility] [address] [place] [phone] Thaddeus Wright RDH from Last 3 Months [...] Description 03/15/2025 3:40 PM EST Office Visit [facility] [address] [place] [phone] Thaddeus Wright, [facility] [address] [place] [address] Health Maintenance Due Date Last Done Comments [...] 08/01/2023 Imm-Zoster, Recombinant (1 of 2) 08/01/2023 Exv-[id number]-[id number] (1 - season) 2023 Alcohol and Drug [...]
--- OUTSIDE RECORDS SUMMARY | 2024-09-21 11:16 | XMS_ITS | Clinical Summary ---
Author Organization [employer] [facility] ity Address [address] [place] [address] Care Team Providers Care Speech Clinician Name Role Phone Unavailable Primary Care Provider [...]
--- OUTSIDE RECORDS SUMMARY | 2024-09-21 11:16 | XMS_ITS | Clinical Summary ---
Author Organization [employer] Address [address] [facility] 7[address] [place] [address] Care Team Providers Care Inspector Agricultural Commodities Name Role Phone Tavo Beckman MD Primary Care Provider + Allergies No known active allergies Medications tiZANidine (Zanaflex) 4 MG capsuleIndicati ons:Acute pain of right shoulder Take 1 capsule (4 mg) by mouth 3 times daily. 90 capsule 1 3 Active ergocalciferol (Vitamin D2) 1.25 MG (43299 UT) capsule TAKE 1 CAPSULE BY MOUTH [...] (12/12/2023 1:26 PM EST): On 10/2022 at [facility] Overweight 12/12/2023 Assessment & Plan (09/07/2024 3:03 [...] activity. Check home BP BIW and prn CP/SHEETS/SAEZN Non smoking patient. 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 Resolved Problems Problem Noted Date Diagnosed Date Resolved Date Obesity (BMI 30.0-34.9) 12/27/2022 11/0 05/2023 Assessment & Plan (12/27/2022 3:25 PM EST): Status Post bariatric surgery Significant decrease in BMI Continue Multivitamins Iron + zinc supplementation F/u [facility] obesity clinic F/u in 6 mos Morbid obesity 09/03/2011 12/12/2023 Overview (12/12/2023): Sp Laparoscopic sleeve gastrectomy on 11/04/22 at [facility] Assessment & Plan (06/16/2022 11:20 AM EDT): Discussed re weight reduction options including exercise, life style modifications, diet, referral to pharmacy specialist. Discussed re lower calorie intake, increase dietary fiber I gave her information about weight management program for baritric surgery Encounters Date Type Department Care Team Description 09/13/2024 Refill [facility] [address] [place] [address] Tavo Beckman MD 09/06/2024 Results Follow-Up [facility] [address] [place] [address] Tavo Beckman MD Gram Stain Result 08/22/2024 Orders Only [facility] External Provider, [facility] 08/21/2024 Orders Only GENERIC EXTERNAL DATA DEPARTMENT Provider, Generic External Data 08/13/2024 Orders Only GENERIC EXTERNAL DATA DEPARTMENT Provider, Generic External Data 07/18/2024 Orders Only [facility] [address] [place] [address] Tavo Beckman MD 06/28/2024 Orders Only GENERIC EXTERNAL DATA DEPARTMENT Provider, Generic External Data 06/26/2024 Orders Only GENERIC EXTERNAL DATA DEPARTMENT Provider, Generic External Data 06/22/2024 11:45 AM EDT Office Visit [facility] [address] [place] [address] Tavo Beckman MD Rheumatoid arthritis involving multiple sites with positive rheumatoid factor ([facility]) (Primary Dx); Overweight; Benign essential HTN; Dietary counseling; Exercise counseling 06/22/2024 Travel 06/21/2024 Telephone [facility] [address] [place] [address] Tavo Beckman MD chart prep from Last [...] AM EDT Narrative 08/22/2024 12:13 PM EDT [place] [address] [address] Scan Report Signed Patient: Serenity Gómez MR#: [id number] : 1975 Acct:[id number] Age/Sex: 49 / F ADM Date: 08/22/24 Loc: HO.CT Attending Dr: Ted ALLEN Ordering Physician: Ted Beauchamp Date of Service: 08/22/24 Procedure(s): CT abdomen pelvis wo IV con Accession Number(s): [id number] cc: Ted Beauchamp; Tavo Beckman MD Report Number: [id number]: Total DLP = 392.00 mGy-cm EXAMINATION: CT [...] 08/22/24 1210 DD/ 1127 TD/TT: 08/22/24 1150 Manufacturing Assembler: Procedure Note Donotuseinterpreter, Image - 08/22/[address] [address] [address] Scan Report Signed Patient: Serenity Gómez MMR#: [id number] : 1975Acct:[id number] Age/Sex: 49 / FADM Date: 08/22/24 Loc: HO.CT Attending Dr: Ted ALLEN Ordering Physician: Ted Beauchamp Date of Service: 08/22/24 Procedure(s): CT abdomen pelvis wo IV con Accession Number(s): [id number] cc: Ted Beauchamp; Tavo Beckman MD Report Number: [id number]: Total DLP = 392.00 mGy-cm EXAMINATION: CT [...] 08/22/24 1210 DD/ 1127 TD/TT: 08/22/24 1150 Manufacturing Assembler: [facility] External Provider IMG CT PROCEDURES Final Result * (ABNORMAL) CBC auto differential (08/21/2024 9:32 AM EDT) White Blood Count 12.7(H) 4.8 - 10.8 X10*3/uL [facility] Red Blood Count 3.95(L) 4.20 - 5.50 X10*6/uL [facility] Hemoglobin 11.6(L) 12.0 - 16.0 g/dl [facility] Hematocrit 34.8(L) 37.0 - 47.0 % [facility] Mean Corpuscular Volume 88.1 80.0 - 98.0 fL [facility] Mean Corpuscular Hemoglobin 29.4 27.0 - 33.0 pg [facility] Mean Corpuscular HGB Conc 33.3 31.0 - 35.0 g/dl [facility] Red Cell Distribution Width 11.8 11.0 - 16.0 % [facility] Platelet Count 311 160 - 400 X10*3/uL [facility] Mean Platelet Volume 9.4 9.4 - 12.3 fL [facility] Neutrophils Percent Auto 73.1(H) 45 - 73 % [facility] Imm Gran Pct Auto 0.4 0.0 - 0.4 % [facility] Lymphocytes Percent Auto 16.8(L) 20 - 40 % [facility] Monocytes Percent Auto 9.1 2 - 11 % [facility] Eosinophils Percent Auto 0.4 0 - 4 % [facility] Basophils Percent Auto 0.2 0 - 2 % [facility] NRBC Pct Auto 0.0 0.0 - 0.2 /100WBC [facility] Neutrophils Absolute Auto 9.3(H) 2.0 - 8.3 x10*3/uL [facility] Imm Gran Abs Auto 0.05(H) 0.00 - 0.03 X10*3/uL [facility] Lymphocytes Absolute Auto 2.1 1.2 - 4.9 X10*3/uL [facility] Monocytes Absolute Auto 1.2 0.1 - 1.2 X10*3/uL [facility] Eosinophils Absolute Auto 0.1 0.0 - 0.4 X10*3/uL [facility] Basophils Absolute Auto 0.0 0.0 - 0.2 X10*3/uL [facility] NRBC Abs Auto 0.000 0.0 - 0.012 X10*3/uL [facility] 08/21/2024 9:32 AM EDT 08/21/2024 9:32 AM EDT Generic External Data Provider LAB BLOOD ORDERAB LES Final Result Performing Organization Address [facility] Co de Phone Number [facility] [address] [place] [address] [phone] * Gram Stain Result (08/13/2024 2:00 PM EDT) 08/13/2024 2:00 PM EDT 08/13/2024 2:20 PM EDT Comment:Abdomen Narrative [facility] - 08/16/2024 8:01 AM EDT [...] DERABLE LABS Final Result Performing Organization Address [facility] Co de Phone Number [facility] [address] [place] [phone] * BI Mammogram Screening Tomosynthesis Bilateral (07/18/2024 12:10 PM EDT) Anatomical Region Laterality Modality Breast Bilateral Mammography 07/18/2024 12:1 0 PM EDT Narrative 07/27/2024 1:14 PM EDT [address] [place] [address] Mammography Report Signed Patient: Serenity Gómez MR#: [id number] : 1975 Acct:[id number] Age/Sex: 48 / F ADM Date: 07/18/24 Loc: HO.MAMMO Attending Dr: Tavo Beckman MD Ordering Physician: Tavo Beckman MD Results: 1Ne gative Date of Service: 07/18/24 Follow Up: 1 Year From Orig ina Mammogram Procedure(s): MM tomosynthesis screening BI Accession Number(s): [id number] cc: Tavo Beckman MD EXAMINATION: MM SCREENING [...] 07/27/24 1311 DD/ 1210 TD/TT: 07/18/24 1230 Manufacturing Assembler: Procedure Note Donotuseinterpreter, Image - 07/27/2024 [facility] [address] [place], [place] [address] Mammography Report Signed Patient: Serenity Gómez [facility]#: [id number] : 1975Acct:[id number] Age/Sex: 48 / FADM Date: 07/18/24 Loc: HO.MAMMO Attending Dr: Tavo Beckman MD Ordering Physician: Tavo Beckman MDResults: 1Ne gatelena Date of Service: 07/18/24Follow Up: 1 Year From [facility] Mammogram Procedure(s): MM tomosynthesis screening BI Accession Number(s): [id number] cc: Tavo Beckman MD EXAMINATION: MM SCREENING [...] 07/27/24 1311 DD/ 1210 TD/TT: 07/18/24 1230 Manufacturing Assembler: Tavo Beckman MD IMG BI PROCEDURES Final Result * Gross and Microscopic Level 3 (06/28/2024 12:08 PM EDT) 06/28/2024 12:0 8 PM EDT 06/28/2024 2:20 PM EDT [facility] - 06/29/2024 4:30 PM EDT ----- ------- Name: Serenity Gómez Age/Sex: 48/F : 1975 Unit#: [id number] Attend Dr: Roel Monzon MD Re06/28/24 Status: [facility] Location: [facility] Disch: ----- ------- SPEC : [id number] RECD: 06/28/24-1420 STATUS: ANA MARÍA FERRERA NUM: [id number] AN: 06/28/24-[address]: Roel Monzon MD ENTERED: 06/28/24-5332 SP TYPE: Surgical OTHR DR: Tavo Beckman [...] distinct cysts, lesions or nodules are identified. Manager Content sections are submitted in cassettes A1-A3. CEDS IHC S/NG Disclaimer NOTE: Unless otherwise stated, all tissue is formalin-fixed and paraffin-embedded. Some or all of the immunohistochemical tests reported herein may have been developed and their performance characteristics determined by [facility]. They have not been cleared or approved by the U.S. Food and Drug Administration (FDA). However, the FDA has determined that such clearance or approval is not necessary. This laboratory is certified under the Clinical Laboratory Improvement Amendments of 1988 (CLIA) as qualified to perform high complexity clinical laboratory testing. Copies To: Tavo Beckman MD [address] [address] CONTINUED ON NEXT PAGE ----- ------- Name: Serenity Gómez Age/Sex: 48/F : 1975 Unit#: [id number] Attend Dr: Roel Monzon MD Re06/28/24 Status: [facility] Location: [facility] Disch: ----- ------- SPEC : [id number] RECD: 06/28/24-6360 STATUS: ANA MARÍA FERRERA NUM: [id number] AN: 06/28/24-[address] [facility] [address]: Roel Monzon MD ENTERED: 06/28/241186 SP TYPE: Surgical OTHR DR: Tavo Beckman MD ORDERED: Gross Micro L3 Copies To: (Continued) Roel Monzon MD [facility] Weight Management [facility] [address] [place] [address] ----- ------- Signed (signature on file) Guillermina Wakefield MD 06/29/24 1630 ----- ------- END OF REPORT Generic External Data Provider LAB CYTOLOGY ORDE EDWIGE Final Result [facility] [address] [place] [phone] [phone] * Type and screen (06/26/2024 10:45 AM EDT) Blood Type AP [facility] Antibody Screen NEGATIVE [facility] 06/26/2024 10:4 5 AM EDT 06/26/2024 11:00 AM EDT Narrative [facility] - 06/26/2024 11:37 AM EDT witnessed by graciasNURSING:Call Blood Bank (ext. [phone]) to band patient on admission.Type and Screen in effect until 2300 on 06-28-2024 Generic External Data Provider LAB BLOOD BANK TE ST ORDERABLES Final Result Performing Organization Address [facility] de Phone Number [facility] [address] [place] [address] [phone] * (ABNORMAL) Lipid Panel, Standard (02/24/2024 8:29 AM EST) Triglycerides 61 <150 mg/dL [facility] Comment:Desirable Triglyceri de: less than 150 mg/dLBorderline High Triglyceride 150-199 mg/dLHigh Triglyceride: 200-499 mg/dLVery High Triglyceride: greater than or equal to 5OO mg/dL Cholesterol 187 <200 mg/dL [facility] Comment:Desirable Cholestero l: less than 200 mg/dLBorderline High Cholesterol: 200-239 mg/dLHigh Cholesterol: greater than 239 mg/dL LDL Cholesterol Calculated 110(H) <100 mg/dL [facility] Comment:Desirable LDL: less than 100 mg/dLNear Optimal/Above Optimal LDL: 110- 129 mg/dLBorderline High LDL: 130-159 mg/dLHigh LDL: 160-189 mg/dLVery High LDL: greater than or equal to 190 mg/dL HDL Cholesterol 65 >40 mg/dL [facility] Comment:Desirable HDL: great er than 40 mg/dL Note: This HDL assay may give artificially low results in patients with liver disease. 02/24/2024 8:29 AM EST 02/24/2024 8:29 AM EST Generic External Data Provider LAB BLOOD ORDERAB LES Final Result Performing Organization Address City/[facility]/ZIP Co de Phone Number [facility] [address] [place] [address] [phone] * Pap Smear (12/29/2022 2:49 PM EST) 12/29/2022 2:49 PM EST 01/03/2023 7:00 AM EST Narrative [facility] - 01/13/2023 4:11 PM EST ----- ------- Name: Serenity Gómez Age/Sex: 47/F : 1975 Unit#: [id number] Attend Dr: Chalino Benton MD Re12/29/22 Status: DEP REF Location: [facility] Disch: ----- ------- SPEC : [id number] RECD: 01/03/23 STATUS: ANA MARÍA FERRERA NUM: [id number] AN: 12/29/[address] [facility] [address]: Chalino Benton MD ENTERED: 01/04/23 SP [...] 59, 66, 68) HPV testing performed by [facility], [place], [place]. See reference laboratory portion of the EMR for entire report. Clinical Information LMP: Postmenopausal Previous PAP test: 2021, ASCUS, HPV+ Material Received ThinPrep-Cervical Copies To: Tavo Beckman MD [address] [place] [phone] Chalino Benton MD [address] [place], [place] [address]Roger [address] [phone] ----- ------- Signed (signature on file) MANUEL Uriarte ([facility]) 01/13/23 1611 ----- ------- END OF REPORT Generic External Data Provider LAB CYTOLOGY NATHALIA GIBBONS Final Result [facility] [address] [place] [phone] * HPV E6/E7 RFLX OLGA 16 18/45 (11/11/2021 3:37 PM EDT) [facility] HPV mRNA E6/E7 rflx Not Detected Not Detected [facility] Comment: Methodology: Primary Therapist-Mediated Amplification This assay detects E6/E7 viral messenger RNA (mRNA) from 14 high-risk HPV types (16,18,31,33,35,39,45,51,52,56,58,59,66,68). Cervical sources are required for HPV testing. If a vaginal source from a patient who has had a total hysterectomy with removal of cervix was submitted, please contact the testing laboratory for alternative testing options. For additional information, please refer to http://education.Sayah/faq/OFS410y6 (This link if provided for information/ educational purposes only.) THIS TEST WAS PERFORMED AT: [facility] [address] [place] [address],[place] [address] ELIZABETH ANDRES MD 11/11/2021 3:37 PM EDT [...] purpose. For additional information please refer to http://education.[employer].HumanCloud/faq/IUY863 (This link is being provided for informational/ educational purposes only.) The performance of this assay has not been clinically validated in patients less than 2 years old. 10/17/2020 1:05 PM EDT us Tavo Beckman MD LAB BLOOD ORDERABLES Fin al Result [facility] [address] from Last 3 Months or Most Recently Relevant to Health Maintenance Insurance [facility] Care Teams Inspector Agricultural Commodities Relationship Specialty Start Date End Date Tavo Beckman MD [address] [place] [phone] PCP - General Family Medicine 12/27/17 [facility] 06/29/24
[2024-09-21 11:25] VITALS: BP 137/77; PULSE 64; TEMP 36.4; O2SAT 99; BMI 26.7
== END 2024-09-21 11:33 | disposition home or self-care (01) ==
LOC: HO.HBS 11:05
PROVIDERS: PCP Internal Medicine; Visit Provider Physician Assistant Surgical
DX: T81.49XA Infection following a procedure, other surgical site, initial encounter (principal)
CPT/HCPCS: 99024

== ENCOUNTER → 2024-09-21 11:05 | Outpatient (BNVA) | payer OTHER, SELFPAY | PROVIDERS: PCP Internal Medicine; Visit Provider Physician Assistant Surgical | DX: T81.49XA Infection following a procedure, other surgical site, initial encounter (principal) | CPT/HCPCS: 99212 ==

== ENCOUNTER 2024-09-24 11:25 | Outpatient (AMB) | payer OTHER, SELFPAY ==
[2024-09-24 11:38] VITALS: BP 131/77; PULSE 64; TEMP 36.3; O2SAT 95; BMI 26.5
--- NOTE | 2024-09-24 11:38 | MHC.NURWM ---
Intake VS Expanded 09/24/24 11:38 BP 131/77 Blood Pressure Location Rt brachial Blood Pressure Position Sitting Pulse 64 Pulse Source Pulse Oximeter Temp 97.3 F Temperature Source Temporal Artery Scan Pulse Oximetry 95 Oxygen Delivery Method Room Air Height 4 ft 11 in Weight 131 lb 6.4 oz BMI 26.5 Body Fat % 31.5 Body Fat Mass 41.4 Fat Free Mass 90.0 Visceral Fat Rating 6.0 Body Water % 48.7 Body Water Mass 64.0 Muscle Mass/Score 85.4 Basal Metabolic Rate/Score 1,226 Intake Visit Reasons: OV Panniculectomy 06/28/24 Allergies No Known Allergies Allergy (Verified 09/24/24 11:39) Coding
--- NOTE | 2024-09-24 11:41 | A.OFFVIS_ITS ---
VS Expanded 09/24/24 11:38 09/24/24 11:42 BP 131/77 Blood Pressure Location Rt brachial Blood Pressure Position Sitting Pulse 64 Pulse Source Pulse Oximeter Temp 97.3 F Temperature Source Temporal Artery Scan Pulse Oximetry 95 Oxygen Delivery Method Room Air Height 4 ft 11 in Weight 131 lb 6.4 oz BMI 26.5 26.5 Body Fat % 31.5 Body Fat Mass 41.4 Fat Free Mass 90.0 Visceral Fat Rating 6.0 Body Water % 48.7 Body Water Mass 64.0 Muscle Mass/Score 85.4 Basal Metabolic Rate/Score 1,226 Intake Visit Reasons: OV Panniculectomy 06/28/24 Allergies No Known Allergies Allergy (Verified 09/24/24 11:39) HPI Comments Details: Patient is her for wound check and dressing change Feels well and reports no issues except from a small amount of purulent material from the sinus at the middle of the incision [facility] Medical History (Updated 08/20/24 @ 13:35 by TIFFANY Fox) Excess skin History of vertigo Nephrolithiasis GERD (gastroesophageal reflux disease) Anxiety Depression BMI 39.0-39.9,adult Morbid obesity Right shoulder injury Left lateral epicondylitis Right shoulder tendonitis Carpal tunnel syndrome on both sides Normal vulvar exam Hemorrhoids Diverticulosis Tubular adenoma Encounter for screening colonoscopy Postmenopausal bleeding Well woman exam BENITO III (cervical intraepithelial neoplasia grade III) with severe dysplasia Carpal tunnel syndrome Acute arthritis Seasonal allergic rhinitis Surgical History S/P panniculectomy 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) Hx of colonoscopy (07/2021) Tubal ligation status Family History Mother HTN (hypertension) A-fib Arthritis Father Diabetes HTN (hypertension) Sister Lupus Social History Household Members: Spouse Housing: House Are you a primary director critical care to a significant other at home: No Do you presently have visiting nurse or other home services: No Alcohol intake: current Alcohol intake frequency: does not drink Patient Tobacco Use Status: Never used Tobacco service: No Current occupational status: employed 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 Sexual orientation: Straight/Heterosexual Gender identity: Female Female Reproductive History Menstrual Age of Menarche: 10 Physical Exam Vital Signs: Last Vital Signs Temp 97.3 F 09/24/24 11:38 Pulse 64 09/24/24 11:38 BP 131/77 09/24/24 11:38 Pulse Ox 95 09/24/24 11:38 Oxygen Delivery Method Room Air 09/24/24 11:38 BMI result Body Mass Index 26.5 GI Inspection: Yes normal to inspection and Yes incision (small draining sinus in the middle of the incision with small amount of pus) Assessment & Plan Assessment & Plan (1) S/P panniculectomy: Code(s): Z98.890 - Other specified postprocedural states Category: Surgical Plan: Previous packing was removed. The wound was flushed with 10ml of hydrogen peroxide and then it was packed with iodoform gauze She will return tomorrow for dressing change
[2024-09-24 11:42] VITALS: BMI 26.5
--- OUTSIDE RECORDS SUMMARY | 2024-09-24 12:47 | XMS_ITS | Clinical Summary ---
Author Organization [employer] Address [address] [facility] [address] [place] [address] Care Team Providers Care Touch Up Worker Name Role Phone Tavo Beckman MD Primary Care Provider + Allergies No known active allergies Medications tiZANidine (Zanaflex) 4 MG capsuleIndicati ons:Acute pain of right shoulder Take 1 capsule (4 mg) by mouth 3 times daily. 90 capsule 1 3 Active ergocalciferol (Vitamin D2) 1.25 MG (63174 UT) capsule TAKE 1 CAPSULE BY MOUTH [...] days. 30 tablet 5 09/24/19 25 Active Problems Problem Noted Date Diagnosed Date Benign essential HTN 06/22/2024 Assessment & Plan (09/07/2024 3:02 PM EDT): Fairly controlled. Continue dietary modifications counseled re low salt diet/increase moderate physical activity. Check home BP BIW and prn CP/SHEETS/SAENZ Non smoking patient. 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 Discussed re lower calorie intake, increase dietary fiber I gave her information about weight management program for baritric surgery Encounters Date Type Department Care Team Description 09/13/2024 Refill [facility] [address] [place] [address] Tavo Beckman MD 09/06/2024 Results Follow-Up [facility] [address] [place] [address] Tavo Beckman MD Gram Stain Result 08/22/2024 Orders Only [facility] External Provider, [facility] 08/21/2024 Orders Only GENERIC EXTERNAL DATA DEPARTMENT Provider, Generic External Data 08/13/2024 Orders Only GENERIC EXTERNAL DATA DEPARTMENT Provider, Generic External Data 07/18/2024 Orders Only [facility] MEDICINE [address] [place] [address] Tavo Beckman MD 06/28/2024 Orders Only GENERIC [...] Additional history exists Pap Smear 12/30/2027 12/29/2022, 10/0 06/2020, 11/06/2020 Lipid Panel 02/23/2029 02/24/2024, 07/08, [...] AM EDT Narrative 08/22/2024 12:13 PM EDT [place] [address] CT Scan Report Signed Patient: Serenity Gómez MR#: [id number] : 1975 Acct:[id number] Age/Sex: 49 / F ADM Date: 08/22/24 Loc: HO.CT Attending Dr: Ted ALLEN Ordering Physician: Ted Beauchamp Date of Service: 08/22/24 Procedure(s): CT abdomen pelvis wo IV con Accession Number(s): [id number] cc: Ted Beauchamp; Tavo Beckman MD Report Number: [id number]: Total DLP = 392.00 mGy-cm EXAMINATION: CT [...] 08/22/24 1210 DD/ 1127 TD/TT: 08/22/24 1150 Collar Sewer: Procedure Note Donotuseinterpreter, Image - 08/22/[address] [address] [address] Scan Report Signed Patient: Serenity Gómez [facility]#: [id number] : 1975Acct:[id number] Age/Sex: 49 / FADM Date: 08/22/24 Loc: HO.CT Attending Dr: Ted ALLEN Ordering Physician: Ted Beauchamp Date of Service: 08/22/24 Procedure(s): CT abdomen pelvis wo IV con Accession Number(s): [id number] cc: Ted Beauchamp; Tavo Beckman MD Report Number: [id number]: Total DLP = 392.00 mGy-cm EXAMINATION: CT [...] 08/22/24 1210 DD/ 1127 TD/TT: 08/22/24 1150 Collar Sewer: [facility] External Provider IMG CT PROCEDURES Final Result * (ABNORMAL) CBC auto differential (08/21/2024 9:32 AM EDT) White Blood Count 12.7(H) 4.8 - 10.8 X10*3/uL [facility] Red Blood Count 3.95(L) 4.20 - 5.50 X10*6/uL [facility] Hemoglobin 11.6(L) 12.0 - 16.0 g/dl [facility] Hematocrit 34.8(L) 37.0 - 47.0 % [facility] Mean Corpuscular Volume 88.1 80.0 - 98.0 fL [facility] Mean Corpuscular Hemoglobin 29.4 27.0 - 33.0 pg [facility] Mean Corpuscular HGB Conc 33.3 31.0 - 35.0 g/dl [facility] Red Cell Distribution Width 11.8 11.0 - 16.0 % [facility] Platelet Count 311 160 - 400 X10*3/uL [facility] Mean Platelet Volume 9.4 9.4 - 12.3 fL [facility] Neutrophils Percent Auto 73.1(H) 45 - 73 % [facility] Imm Gran Pct Auto 0.4 0.0 - 0.4 % [facility] Lymphocytes Percent Auto 16.8(L) 20 - 40 % [facility] Monocytes Percent Auto 9.1 2 - 11 % [facility] Eosinophils Percent Auto 0.4 0 - 4 % [facility] Basophils Percent Auto 0.2 0 - 2 % [facility] NRBC Pct Auto 0.0 0.0 - 0.2 /100WBC [facility] Neutrophils Absolute Auto 9.3(H) 2.0 - 8.3 x10*3/uL [facility] Imm Gran Abs Auto 0.05(H) 0.00 - 0.03 X10*3/uL [facility] Lymphocytes Absolute Auto 2.1 1.2 - 4.9 X10*3/uL [facility] Monocytes Absolute Auto 1.2 0.1 - 1.2 X10*3/uL [facility] Eosinophils Absolute Auto 0.1 0.0 - 0.4 X10*3/uL [facility] Basophils Absolute Auto 0.0 0.0 - 0.2 X10*3/uL [facility] NRBC Abs Auto 0.000 0.0 - 0.012 X10*3/uL [facility] 08/21/2024 9:32 AM EDT 08/21/2024 9:32 AM EDT us Generic External Data Provider LAB BLOOD ORDERAB LES Final Result [facility] [address] [place] [address] [phone] * Gram Stain Result (08/13/2024 2:00 PM EDT) 08/13/2024 2:00 PM EDT 08/13/2024 2:20 PM EDT Comment:Abdomen Narrative [facility] - 08/16/2024 8:01 AM EDT Gram [...] [facility] Co de Phone Number [facility] [address] [place] [phone] * BI Mammogram Screening Tomosynthesis Bilateral (07/18/2024 12:10 PM EDT) Anatomical Region Laterality Modality Breast Bilateral Mammography 07/18/2024 12:1 0 PM EDT Narrative 07/27/2024 1:14 PM EDT [address] [place] [address] Mammography Report Signed Patient: Serenity Gómez MR#: [id number] : 1975 Acct:[id number] Age/Sex: 48 / F ADM Date: 07/18/24 Loc: HO.MAMMO Attending Dr: Tavo Beckman MD Ordering Physician: Tavo Beckman MD Results: 1Ne gative Date of Service: 07/18/24 Follow Up: 1 Year From Orig ina Mammogram Procedure(s): MM tomosynthesis screening BI Accession Number(s): [id number] cc: Tavo Beckman MD EXAMINATION: MM SCREENING [...] 07/27/24 1311 DD/ 1210 TD/TT: 07/18/24 1230 Collar Sewer: Procedure Note Donotuseinterpreter, Image - 07/27/2024 [facility] [address] [place] [address] Mammography Report Signed Patient: Serenity Gómez [facility]#: [id number] : 1975Acct:[id number] Age/Sex: 48 / FADM Date: 07/18/24 Loc: HAMZAHO Attending Dr: Tavo Beckman MD Ordering Physician: Tavo Beckman MDResults: 1Ne gative Date of Service: 07/18/24Follow Up: 1 Year From Orig inal Mammogram Procedure(s): MM tomosynthesis screening BI Accession Number(s): [id number] cc: Tavo Beckman MD EXAMINATION: MM SCREENING [...] 07/27/24 1311 DD/ 1210 TD/TT: 07/18/24 1230 Collar Sewer: Tavo Beckman MD IMG BI PROCEDURES Final Result * Gross and Microscopic Level 3 (06/28/2024 12:08 PM EDT) 06/28/2024 12:0 8 PM EDT 06/28/2024 2:20 PM EDT [facility] - 06/29/2024 4:30 PM EDT ----- ------- Name: Serenity Gómez Age/Sex: 48/F : 1975 [id number] Unit#: [id number] Attend Dr: Roel Monzon MD Re06/28/24 Status: [facility] Location: [facility] Disch: ----- ------- SPEC : [id number] RECD: 06/28/24-1420 STATUS: TRACEDionicio FERRERA NUM: [id number] AN: 06/28/24-[address]: Roel Monzon MD [...] distinct cysts, lesions or nodules are identified. Analysis Or Research Safety Inspector sections are submitted in cassettes A1-A3. CEDS IHC S/NG Disclaimer NOTE: Unless otherwise stated, all tissue is formalin-fixed and paraffin-embedded. Some or all of the immunohistochemical tests reported herein may have been developed and their performance characteristics determined by [facility]. They have not been cleared or approved by the U.S. Food and Drug Administration (FDA). However, the FDA has determined that such clearance or approval is not necessary. This laboratory is certified under the Clinical Laboratory Improvement Amendments of 1988 (CLIA) as qualified to perform high complexity clinical laboratory testing. Copies To: Tavo Beckman MD [address] [address] CONTINUED ON NEXT PAGE ----- ------- Name: Serenity Gómez Age/Sex: 48/F : 1975 Unit#: [id number] Attend Dr: Roel Monzon MD Re06/28/24 Status: [facility] Location: [facility] Disch: ----- ------- SPEC : [id number] RECD: 06/28/24-1420 STATUS: ANA MARÍA FERRERA NUM: [id number] AN: 06/28/24-[address]: Roel Monzon MD ENTERED: 06/28/241875 SP TYPE: Surgical OTHR DR: Tavo Beckman MD ORDERED: Gross Micro L3 Copies To: (Continued) Roel Monzon MD [facility] Weight Management Program [address] [place] [address] ----- ------- Signed (signature on file) Guillermina Wakefield MD 06/29/24 1630 ----- ------- END OF REPORT Generic External Data Provider LAB CYTOLOGY ORDMary GIBBONS Final Result Performing Organization Address City/[facility]/ZIP Co de Phone Number [facility] [address] [place] [address] [phone] * Type and screen (06/26/2024 10:45 AM EDT) Blood Type AP [facility] Antibody Screen NEGATIVE [facility] 06/26/2024 10:4 5 AM EDT 06/26/2024 11:00 AM EDT Narrative [facility] - 06/26/2024 11:37 AM EDT witnessed by graciasNURSING:Call Blood Bank (ext. [phone]) to band patient on admission.Type and Screen in effect until 2300 on 06-28-2024 Generic External Data Provider LAB BLOOD BANK TE ST ORDERABLES Final Result Performing Organization Address [facility]/ZIP Co de Phone Number [facility] [address] [place] [address] [phone] * (ABNORMAL) Lipid Panel, Standard (02/24/2024 8:29 AM EST) Triglycerides 61 <150 mg/dL [facility] Comment:Desirable Triglyceri de: less than 150 mg/dLBorderline High Triglyceride 150-199 mg/dLHigh Triglyceride: 200-499 mg/dLVery High Triglyceride: greater than or equal to 5OO mg/dL Cholesterol 187 <200 mg/dL [facility] Comment:Desirable Cholestero l: less than 200 mg/dLBorderline High Cholesterol: 200-239 mg/dLHigh Cholesterol: greater than 239 mg/dL LDL Cholesterol Calculated 110(H) <100 mg/dL [facility] Comment:Desirable LDL: less than 100 mg/dLNear Optimal/Above Optimal LDL: 110- 129 mg/dLBorderline High LDL: 130-159 mg/dLHigh LDL: 160-189 mg/dLVery High LDL: greater than or equal to 190 mg/dL HDL Cholesterol 65 >40 mg/dL [facility] Comment:Desirable HDL: great er than 40 mg/dL Note: This HDL assay may give artificially low results in patients with liver disease. 02/24/2024 8:29 AM EST 02/24/2024 8:29 AM EST us Generic External Data Provider LAB BLOOD ORDERAB LES Final Result [facility] [address] [place] [phone] * Pap Smear (12/29/2022 2:49 PM EST) 12/29/2022 2:49 PM EST 01/03/2023 7:00 AM EST Narrative [facility] - 01/13/2023 4:11 PM EST ----- ------- Name: Serenity Gómez Age/Sex: 47/F : 1975 Unit#: [id number] Attend Dr: Chalino Benton MD Re12/29/22 Status: DEP [facility] Disch: ----- ------- SPEC : [id number] RECD: 01/03/23 STATUS: ANA MARÍA FERRERA NUM: [id number] AN: 12/29/22 [facility] DR: Chalino Benton MD ENTERED: 01/04/23 [...] 59, 66, 68) HPV testing performed by [facility], [place], [place]. See reference laboratory portion of the EMR for entire report. Clinical Information LMP: Postmenopausal Previous PAP test: 2021, ASCUS, HPV+ Material Received ThinPrep-Cervical Copies To: Tavo Beckman MD [address] [place] [id number] Chalino Benton MD [address] [place] [address] [address] ----- ------- Signed (signature on file) MANUEL Uriarte (ASCP) 01/13/23 1611 ----- ------- END OF REPORT Generic External Data Provider LAB CYTOLOGY ORDMary RABDAVID Final Result Performing Organization Address City/[facility]/ZIP Co de Phone Number [facility] [address] [place] [phone] * HPV E6/E7 RFLX OLGA 16 18/45 (11/11/2021 3:37 PM EDT) [facility] HPV mRNA E6/E7 rflx Not Detected Not Detected [facility] Comment: Methodology: Plugger Man-Mediated Amplification This assay detects E6/E7 viral messenger RNA (mRNA) from 14 high-risk HPV types (16,18,31,33,35,39,45,51,52,56,58,59,66,68). Cervical sources are required for HPV testing. If a vaginal source from a patient who has had a total hysterectomy with removal of cervix was submitted, please contact the testing laboratory for alternative testing options. For additional information, please refer to http://education.Taxify/faq/MMD134o5 (This link if provided for information/ educational purposes only.) THIS TEST WAS PERFORMED AT: [facility] [address] [place] [address],[place] [address] ELIZABETH ANDRES MD 11/11/2021 3:37 PM EDT Chalino Benton MD HISTORICAL/NON ORDERABLE LABS Fi nal Result Performing Organization Address City/[facility]/ZIP Co de Phone Number [facility] [...] purpose. For additional information please refer to http://education.Taxify/faq/THV123 (This link is being provided for informational/ educational purposes only.) The performance of this assay has not been clinically validated in patients less than 2 years old. 10/17/2020 1:05 PM EDT us Tavo Beckman MD LAB BLOOD ORDERABLES Fin al Result [facility] [address] from Last 3 Months or Most Recently Relevant to Health Maintenance Insurance [facility] Care Teams Touch Up Worker Relationship Specialty Start Date End Date Tavo Beckman MD [address] [place] [phone] PCP - General Family Medicine 12/27/17 Tommie Andrews 06/29/24
--- OUTSIDE RECORDS SUMMARY | 2024-09-24 12:47 | XMS_ITS | Clinical Summary ---
Author Organization [facility] Address [address] [place] [address] Care Team Providers Care Supervisor Matrix Name Role Phone Unavailable Primary Care Provider [...] [facility] [address] [place] [phone] Thaddeus Wright RDH from Last 3 Months [...] EST Office Visit [facility] [address] [place] [phone] Thaddeus Wright, [facility] [address] [place] [address] Health Maintenance Due Date Last Done Comments [...] 08/01/2023 Imm-Zoster, Recombinant (1 of 2) 08/01/2023 [id number] (1 - season) 2023 Alcohol and Drug [...]
--- OUTSIDE RECORDS SUMMARY | 2024-09-24 12:47 | XMS_ITS | Clinical Summary ---
Author Organization [employer] [facility] ity Address [address] [place] [address] Care Team Providers Care Cupola Charger Name Role Phone Unavailable Primary Care Provider [...]
== END 2024-09-24 14:39 | disposition home or self-care (01) ==
LOC: HO.HBS 11:26
PROVIDERS: PCP Internal Medicine; Visit Provider Surgery
DX: Z98.890 Other specified postprocedural states (principal)
CPT/HCPCS: 99024

== ENCOUNTER → 2024-09-24 11:25 | Outpatient (BNVA) | payer OTHER, SELFPAY | PROVIDERS: PCP Internal Medicine; Visit Provider Surgery | DX: Z98.890 Other specified postprocedural states (principal); Z48.01 Encounter for change or removal of surgical wound dressing | CPT/HCPCS: 99212 ==

== ENCOUNTER 2024-09-26 13:30 | Outpatient (AMB) | payer OTHER, SELFPAY ==
[2024-09-26 13:49] VITALS: BP 136/77; PULSE 67; TEMP 36.1; O2SAT 99; BMI 26.7
--- NOTE | 2024-09-26 13:49 | A.OFFVIS_ITS ---
VS Expanded 09/26/24 13:49 BP 136/77 Blood Pressure Location Rt brachial Blood Pressure Position Sitting Pulse 67 Pulse Source Pulse Oximeter Temp 96.9 F Temperature Source Temporal Artery Scan Pulse Oximetry 99 Oxygen Delivery Method Room Air Height 4 ft 11 in Weight 132 lb 6.4 oz BMI 26.7 Body Fat % 32.3 Body Fat Mass 42.8 Fat Free Mass 89.6 Visceral Fat Rating 0 Body Water % 48.0 Body Water Mass 63.4 Muscle Mass/Score 84.8 Basal Metabolic Rate/Score 1,224 Intake Visit Reasons: OV Panniculectomy 06/28/24 Allergies No Known Allergies Allergy (Verified 09/24/24 11:39) HPI Comments Details: Patient is a pleasant 49-year-old female who returns to the office today in follow-up. She is status post panniculectomy performed on 06/28/2024. She developed mid incisional abscess with subsequent dehiscence. She received 28 days of Bactrim. About 1 week later, she began to experience more purulent drainage and was placed on another course of Bactrim, today is day 5 of 10 of the 2nd course. She continues to follow the meal plan. Denies fevers or chills. Noted much less drainage. [facility] Medical History (Updated 08/20/24 @ 13:35 by TIFFANY Fox) Excess skin History of vertigo Nephrolithiasis GERD (gastroesophageal reflux disease) Anxiety Depression BMI 39.0-39.9,adult Morbid obesity Right shoulder injury Left lateral epicondylitis Right shoulder tendonitis Carpal tunnel syndrome on both sides Normal vulvar exam Hemorrhoids Diverticulosis Tubular adenoma Encounter for screening colonoscopy Postmenopausal bleeding Well woman exam BENITO III (cervical intraepithelial neoplasia grade III) with severe dysplasia Carpal tunnel syndrome Acute arthritis Seasonal allergic rhinitis Surgical History S/P panniculectomy 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) Hx of colonoscopy (07/2021) Tubal ligation status Family History Mother HTN (hypertension) A-fib Arthritis Father Diabetes HTN (hypertension) Sister Lupus Social History Household Members: Spouse Housing: House Are you a primary childcare attendant to a significant other at home: No Do you presently have visiting nurse or other home services: No Alcohol intake: current Alcohol intake frequency: does not drink Patient Tobacco Use Status: Never used Tobacco service: No Current occupational status: employed 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 No tenderness, induration, erythema. This was flushed with 50% hydrogen peroxide 50% normal saline, packed with quarter-inch iodoform gauze. The right lateral area of dehiscence has completely healed. Assessment & Plan Assessment & Plan (1) Post-operative wound abscess: Code(s): T81.49XA - Infection following a procedure, other surgical site, initial encoun ter Category: Medical Plan: Continue current treatment plans Continue antibiotics, day 5 of 10 Continue meal plan Return to clinic tomorrow
--- OUTSIDE RECORDS SUMMARY | 2024-09-26 14:24 | XMS_ITS | Clinical Summary ---
Author Organization [employer] Address [address] [place] [address] Care Team Providers Care Dispatcher Motor Vehicle Name Role Phone Tavo Beckman MD Primary Care Provider + Allergies No known active allergies Medications tiZANidine (Zanaflex) 4 MG capsuleIndicati ons:Acute pain of right shoulder Take 1 capsule (4 mg) by mouth 3 times daily. 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 Resolved Problems Problem Noted Date Diagnosed Date Resolved Date Obesity (BMI 30.0-34.9) 12/27/2022 11/0 05/2023 Assessment & Plan (12/27/2022 3:25 PM EST): Status Post bariatric surgery Significant decrease in BMI Continue Multivitamins Iron + zinc supplementation F/u [facility] obesity clinic F/u in 6 mos Morbid obesity 09/03/2011 12/12/2023 Overview (12/12/2023): Sp Laparoscopic sleeve gastrectomy on 11/04/22 at [facility] Assessment & Plan (06/16/2022 11:20 AM EDT): Discussed re weight reduction options including exercise, life style modifications, diet, referral to fire protection specialist. Discussed re lower calorie intake, increase dietary fiber I gave her information about weight management program for baritric surgery Encounters Date Type Department Care Team Description 09/13/2024 Refill [facility] [address] [place] [address] Tavo Beckman MD 09/06/2024 Results Follow-Up [facility] [address] [place] [address] Tavo Beckman MD Gram Stain Result 08/22/2024 Orders Only [facility] External Provider, [facility] 08/21/2024 Orders Only GENERIC EXTERNAL DATA DEPARTMENT Provider, Generic External Data 08/13/2024 Orders Only GENERIC EXTERNAL DATA DEPARTMENT Provider, Generic External Data 07/18/2024 Orders Only [facility] [address] [place] [address] Tavo Beckman MD 06/28/2024 Orders Only GENERIC [...] AM EDT Narrative 08/22/2024 12:13 PM EDT [place] [address] [address] Scan Report Signed Patient: Serenity Gómez MR#: [id number] : 1975 Acct:[id number] Age/Sex: 49 / F ADM Date: 08/22/24 Loc: HO.CT Attending Dr: Ted ALLEN Ordering Physician: Ted Beauchamp Date of Service: 08/22/24 Procedure(s): CT abdomen pelvis wo IV con Accession Number(s): [id number] cc: Ted Beauchamp; Tavo Beckman MD Report Number: [id number]: Total DLP = 392.00 mGy-cm EXAMINATION: CT [...] 08/22/24 1210 DD/ 1127 TD/TT: 08/22/24 1150 Automotive Diagnostic Technician: Procedure Note Donotuseinterpreter, Image - 08/22/[address] [address] [address] Scan Report Signed Patient: Serenity Gómez [facility]#: [id number] : 1975Acct:[id number] Age/Sex: 49 / FADM Date: 08/22/24 Loc: HO.CT Attending Dr: Ted ALLEN Ordering Physician: Ted Beauchamp Date of Service: 08/22/24 Procedure(s): CT abdomen pelvis wo IV con Accession Number(s): [id number] cc: Ted Beauchamp; Tavo Beckman MD Report Number: [id number]: Total DLP = 392.00 mGy-cm EXAMINATION: CT [...] 08/22/24 1210 DD/ 1127 TD/TT: 08/22/24 1150 Automotive Diagnostic Technician: [facility] External Provider IMG CT PROCEDURES Final Result * (ABNORMAL) CBC auto differential (08/21/2024 9:32 AM EDT) White Blood Count 12.7(H) 4.8 - 10.8 X10*3/uL [facility] Red Blood Count 3.95(L) 4.20 - 5.50 X10*6/uL [facility] Hemoglobin 11.6(L) 12.0 - 16.0 g/dl [facility] Hematocrit 34.8(L) 37.0 - 47.0 % [facility] Mean Corpuscular Volume 88.1 80.0 - 98.0 fL [facility] Mean Corpuscular Hemoglobin 29.4 27.0 - 33.0 pg [facility] Mean Corpuscular HGB Conc 33.3 31.0 - 35.0 g/dl [facility] Red Cell Distribution Width 11.8 11.0 - 16.0 % [facility] Platelet Count 311 160 - 400 X10*3/uL [facility] Mean Platelet Volume 9.4 9.4 - 12.3 fL [facility] Neutrophils Percent Auto 73.1(H) 45 - 73 % [facility] Imm Gran Pct Auto 0.4 0.0 - 0.4 % [facility] Lymphocytes Percent Auto 16.8(L) 20 - 40 % [facility] Monocytes Percent Auto 9.1 2 - 11 % [facility] Eosinophils Percent Auto 0.4 0 - 4 % [facility] Basophils Percent Auto 0.2 0 - 2 % [facility] NRBC Pct Auto 0.0 0.0 - 0.2 /100WBC [facility] Neutrophils Absolute Auto 9.3(H) 2.0 - 8.3 x10*3/uL [facility] Imm Gran Abs Auto 0.05(H) 0.00 - 0.03 X10*3/uL [facility] Lymphocytes Absolute Auto 2.1 1.2 - 4.9 X10*3/uL [facility] Monocytes Absolute Auto 1.2 0.1 - 1.2 X10*3/uL [facility] Eosinophils Absolute Auto 0.1 0.0 - 0.4 X10*3/uL [facility] Basophils Absolute Auto 0.0 0.0 - 0.2 X10*3/uL [facility] NRBC Abs Auto 0.000 0.0 - 0.012 X10*3/uL [facility] 08/21/2024 9:32 AM EDT 08/21/2024 9:32 AM EDT us Generic External Data Provider LAB BLOOD ORDERAB LES Final Result [facility] [address] [place] [address] [phone] * Gram Stain Result (08/13/2024 2:00 PM EDT) 08/13/2024 2:00 PM EDT 08/13/2024 2:20 PM EDT Comment:Abdomen Narrative [facility] - 08/16/2024 8:01 AM EDT [...] DERABLE LABS Final Result Performing Organization Address City/State/[facility] Co de Phone Number [facility] [address] [place] [phone] * BI Mammogram Screening Tomosynthesis Bilateral (07/18/2024 12:10 PM EDT) Anatomical Region Laterality Modality Breast Bilateral Mammography 07/18/2024 12:1 0 PM EDT Narrative 07/27/2024 1:14 PM EDT [address] [place] [address] Mammography Report Signed Patient: Serenity Gómez MR#: [id number] : 1975 Acct:[id number] Age/Sex: 48 / F ADM Date: 07/18/24 Loc: HO.MAMMO Attending Dr: Tavo Beckman MD Ordering Physician: Tavo Beckman MD Results: 1Ne gative Date of Service: 07/18/24 Follow Up: 1 Year From Orig ina Mammogram Procedure(s): MM tomosynthesis screening BI Accession Number(s): [id number] cc: Tavo Beckman MD EXAMINATION: MM SCREENING [...] 07/27/24 1311 DD/ 1210 TD/TT: 07/18/24 1230 Automotive Diagnostic Technician: Procedure Note Donotuseinterpreter, Image - 07/27/2024 [facility] [address] [place] [address] Mammography Report Signed Patient: Serenity Gómez [facility]#: [id number] : 1975Acct:[id number] Age/Sex: 48 / FADM Date: 07/18/24 Loc: [facility]AMZ[facility]O Attending Dr: Tavo Beckman MD Ordering Physician: Tavo Beckman MDResults: 1Ne gative Date of Service: 07/18/24Follow Up: 1 Year From Orig inal Mammogram Procedure(s): MM tomosynthesis screening BI Accession Number(s): [id number] cc: Tavo Beckman MD EXAMINATION: MM SCREENING [...] 07/27/24 1311 DD/ 1210 TD/TT: 07/18/24 1230 Automotive Diagnostic Technician: Tavo Beckman MD IMG BI PROCEDURES Final Result * Gross and Microscopic Level 3 (06/28/2024 12:08 PM EDT) 06/28/2024 12:0 8 PM EDT 06/28/2024 2:20 PM EDT [facility] - 06/29/2024 4:30 PM EDT ----- ------- Name: Serenity Gómez Age/Sex: 48/F : 1975 [id number]#: [id number] Attend Dr: Roel Monzon MD Re06/28/24 Status: [facility] Location: [facility] Disch: ----- ------- SPEC : [id number] RECD: 06/28/24-1420 STATUS: TRACEDionicio FERRERA NUM: [id number] AN: 06/28/24-[address]: Roel Monzon MD [...] distinct cysts, lesions or nodules are identified. Gravity Meter Observer sections are submitted in cassettes A1-A3. CEDS IHC S/NG Disclaimer NOTE: Unless otherwise stated, all tissue is formalin-fixed and paraffin-embedded. Some or all of the immunohistochemical tests reported herein may have been developed and their performance characteristics determined by [facility]. They have not been cleared or approved by the U.S. Food and Drug Administration (FDA). However, the FDA has determined that such clearance or approval is not necessary. This laboratory is certified under the Clinical Laboratory Improvement Amendments of 1988 (CLIA) as qualified to perform high complexity clinical laboratory testing. Copies To: Tavo Beckman MD [address] [address] CONTINUED ON NEXT PAGE ----- ------- Name: Serenity Gómez Age/Sex: 48/F : 1975 Unit#: [id number] Attend Dr: Roel Monzon MD Re06/28/24 Status: [facility] Location: [facility] Disch: ----- ------- SPEC : [id number] RECD: 06/28/24-1420 STATUS: ANA MARÍA FERRERA NUM: [id number] AN: 06/28/24-[address]: Roel Monzon MD ENTERED: 06/28/248930 SP TYPE: Surgical OTHR DR: Tavo Beckman MD ORDERED: Gross Micro L3 Copies To: (Continued) Roel Monzon MD [facility] Weight Management Program [address] [place] [address] ----- ------- Signed (signature on file) Guillermina Wakefield MD 06/29/24 1630 ----- ------- END OF REPORT Generic External Data Provider LAB CYTOLOGY ORDMary GIBBONS Final Result Performing Organization Address City/[facility]/ZIP Co de Phone Number [facility] [address] [place] [address] [phone] * Type and screen (06/26/2024 10:45 AM EDT) Blood Type AP [facility] Antibody Screen NEGATIVE [facility] 06/26/2024 10:4 5 AM EDT 06/26/2024 11:00 AM EDT Narrative [facility] - 06/26/2024 11:37 AM EDT witnessed by graciasNURSING:Call Blood Bank (ext. [phone]) to band patient on admission.Type and Screen in effect until 2300 on 06-28-2024 Generic External Data Provider LAB BLOOD BANK TE ST ORDERABLES Final Result Performing Organization Address [facility]/ZIP Co de Phone Number [facility] [address] [place] [address] [phone] * (ABNORMAL) Lipid Panel, Standard (02/24/2024 8:29 AM EST) Triglycerides 61 <150 mg/dL [facility] Comment:Desirable Triglyceri de: less than 150 mg/dLBorderline High Triglyceride 150-199 mg/dLHigh Triglyceride: 200-499 mg/dLVery High Triglyceride: greater than or equal to 5OO mg/dL Cholesterol 187 <200 mg/dL [facility] Comment:Desirable Cholestero l: less than 200 mg/dLBorderline High Cholesterol: 200-239 mg/dLHigh Cholesterol: greater than 239 mg/dL LDL Cholesterol Calculated 110(H) <100 mg/dL [facility] Comment:Desirable LDL: less than 100 mg/dLNear Optimal/Above Optimal LDL: 110- 129 mg/dLBorderline High LDL: 130-159 mg/dLHigh LDL: 160-189 mg/dLVery High LDL: greater than or equal to 190 mg/dL HDL Cholesterol 65 >40 mg/dL [facility] Comment:Desirable HDL: great er than 40 mg/dL Note: This HDL assay may give artificially low results in patients with liver disease. 02/24/2024 8:29 AM EST 02/24/2024 8:29 AM EST us Generic External Data Provider LAB BLOOD ORDERAB LES Final Result [facility] [address] [place] [phone] * Pap Smear (12/29/2022 2:49 PM EST) 12/29/2022 2:49 PM EST 01/03/2023 7:00 AM EST Narrative [facility] - 01/13/2023 4:11 PM EST ----- ------- Name: Serenity Gómez Age/Sex: 47/F : 1975 Unit#: [id number] Attend Dr: Chalino Benton MD Re12/29/22 Status: [facility] Disch: ----- ------- SPEC : [id number] RECD: 01/03/23 STATUS: ANA MARÍA FERRERA NUM: [id number] AN: 12/29/[address] [facility] [address]: Chalino Benton MD ENTERED: 01/04/23 [...] 59, 66, 68) HPV testing performed by Rollerwall, Hallowell, MD. See reference laboratory portion of the EMR for entire report. Clinical Information LMP: Postmenopausal Previous PAP test: 2021, ASCUS, HPV+ Material Received ThinPrep-Cervical Copies To: Tavo Beckman MD [address] [place] [phone] Chalino Benton MD [address] [place] [address] [address] ----- ------- Signed (signature on file) MANUEL Uriarte (ASCP) 01/13/23 1611 ----- ------- END OF REPORT Generic External Data Provider LAB CYTOLOGY ORDMary RABDAVID Final Result Performing Organization Address City/[facility]/ZIP Co de Phone Number [facility] [address] [place] [phone] * HPV E6/E7 RFLX OLGA 16 18/45 (11/11/2021 3:37 PM EDT) [facility] HPV mRNA E6/E7 rflx Not Detected Not Detected [facility]VERT[facility]GACY LABS Comment: Methodology: Set Up Mechanic [employer] Machine-Mediated Amplification This assay detects E6/E7 viral messenger RNA (mRNA) from 14 high-risk HPV types (16,18,31,33,35,39,45,51,52,56,58,59,66,68). Cervical sources are required for HPV testing. If a vaginal source from a patient who has had a total hysterectomy with removal of cervix was submitted, please contact the testing laboratory for alternative testing options. For additional information, please refer to http://education.Telir[employer]/faq/ODO827l1 (This link if provided for information/ educational purposes only.) THIS TEST WAS PERFORMED AT: [employer] [address] [place] [address],[place] [address] ELIZABETH ANDRES MD 11/11/2021 3:37 PM EDT Chalino Benton MD HISTORICAL/NON ORDERABLE LABS Fi nal Result Performing Organization Address City/[facility]/ZIP Co de Phone Number CONVERTED LEGACY [...] purpose. For additional information please refer to http://education.Teliris/faq/SHH967 (This link is being provided for informational/ educational purposes only.) The performance of this assay has not been clinically validated in patients less than 2 years old. 10/17/2020 1:05 PM EDT us Tavo Beckman MD LAB BLOOD ORDERABLES Fin al Result [facility] [address] from Last 3 Months or Most Recently Relevant to Health Maintenance Insurance [facility] Care Teams Dispatcher Motor Vehicle Relationship Specialty Start Date End Date Tavo Beckman MD [address] [place] [phone] PCP - General Family Medicine 12/27/17 Tommie Andrews 06/29/24
--- OUTSIDE RECORDS SUMMARY | 2024-09-26 14:24 | XMS_ITS | Clinical Summary ---
Author Organization [employer] [facility] ity Address [address] [place] [address] Care Team Providers Care Procurement Representative Name Role Phone Unavailable Primary Care Provider [...]
--- OUTSIDE RECORDS SUMMARY | 2024-09-26 14:24 | XMS_ITS | Clinical Summary ---
Author Organization [facility] Address [address] [place] [address] Care Team Providers Care Supplemental Nurse Name Role Phone Unavailable Primary Care Provider [...] [facility] [address] [place] [phone] Thaddeus Wright RDH from Last 3 Months [...] [facility] [address] [place] [phone] Thaddeus Wright, [facility] [address] [place] [address] Health Maintenance Due Date Last Done Comments [...] 08/01/2023 Imm-Zoster, Recombinant (1 of 2) 08/01/2023 [id number] (1 - season) 2023 Alcohol and Drug [...]
== END 2024-09-26 13:54 | disposition home or self-care (01) ==
LOC: HO.HBS 13:30
PROVIDERS: PCP Internal Medicine; Visit Provider Physician Assistant Surgical
DX: T81.49XA Infection following a procedure, other surgical site, initial encounter (principal)
CPT/HCPCS: 99024

== ENCOUNTER → 2024-09-26 13:30 | Outpatient (BNVA) | payer OTHER, SELFPAY | PROVIDERS: PCP Internal Medicine; Visit Provider Physician Assistant Surgical | DX: T81.49XA Infection following a procedure, other surgical site, initial encounter (principal) | CPT/HCPCS: 99212 ==

== ENCOUNTER 2024-09-27 12:49 | Outpatient (AMB) | payer OTHER, SELFPAY ==
--- OUTSIDE RECORDS SUMMARY | 2024-09-27 13:10 | XMS_ITS | Clinical Summary ---
Author Organization [facility] Address [address] [place] [address] Care Team Providers Care Seo Expert Name Role Phone Unavailable Primary Care Provider [...] [facility] [address] [place] [phone] Thaddeus Wright RDH from Last 3 Months [...] [facility] [address] [place] [phone] Thaddeus Wright, [facility] [address] [place] [address] Health Maintenance Due Date Last Done Comments [...] 08/01/2023 Imm-Zoster, Recombinant (1 of 2) 08/01/2023 [id number] (1 - season) 2023 Alcohol and Drug [...]
--- OUTSIDE RECORDS SUMMARY | 2024-09-27 13:10 | XMS_ITS | Clinical Summary ---
Author Organization [employer] Address [address] [facility] 7[address] [place] [address] Care Team Providers Care Information Security Associate Name Role Phone Tavo Beckman MD Primary Care Provider + Allergies No known active allergies Medications tiZANidine (Zanaflex) 4 MG capsuleIndicati ons:Acute pain of right shoulder Take 1 capsule (4 mg) by mouth 3 times daily. 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 Resolved Problems Problem Noted Date Diagnosed Date Resolved Date Obesity (BMI 30.0-34.9) 12/27/2022 11/0 05/2023 Assessment & Plan (12/27/2022 3:25 PM EST): Status Post bariatric surgery Significant decrease in BMI Continue Multivitamins Iron + zinc supplementation F/u [facility] obesity clinic F/u in 6 mos Morbid obesity 09/03/2011 12/12/2023 Overview (12/12/2023): Sp Laparoscopic sleeve gastrectomy on 11/04/22 at [facility] Assessment & Plan (06/16/2022 11:20 AM EDT): Discussed re weight reduction options including exercise, life style modifications, diet, referral to wine specialist. Discussed re lower calorie intake, increase dietary fiber I gave her information about weight management program for baritric surgery Encounters Date Type Department Care Team Description 09/13/2024 Refill [facility] [address] [place] [address] Tavo Beckman MD 09/06/2024 Results Follow-Up [facility] [address] [place] [address] Tavo Beckman MD Gram Stain Result 08/22/2024 Orders Only [facility] External Provider, [facility] 08/21/2024 Orders Only GENERIC EXTERNAL DATA DEPARTMENT Provider, Generic External Data 08/13/2024 Orders Only GENERIC EXTERNAL DATA DEPARTMENT Provider, Generic External Data 07/18/2024 Orders Only [facility] [address] [place] [address] Tavo Beckman MD 06/28/2024 Orders Only GENERIC [...] LEVEL 3 Routine 06/28/2024 12:08 PM EDT LIPID PANEL, STANDARD Routine 02/24/2024 8:29 [...] AM EDT Narrative 08/22/2024 12:13 PM EDT [place] [address] [address] Scan Report Signed Patient: Serenity Gómez MR#: [id number] : 1975 Acct:[id number] Age/Sex: 49 / F ADM Date: 08/22/24 Loc: HO.CT Attending Dr: Ted ALLEN Ordering Physician: Ted Beauchamp Date of Service: 08/22/24 Procedure(s): CT abdomen pelvis wo IV con Accession Number(s): [id number] cc: Ted Beauchamp; Tavo Beckman MD Report Number: [id number]: Total DLP = 392.00 mGy-cm EXAMINATION: CT [...] 08/22/24 1210 DD/ 1127 TD/TT: 08/22/24 1150 Aviation Electrician: Procedure Note Donotuseinterpreter, Image - 08/22/[address] [address] [address] Scan Report Signed Patient: Serenity Gómez [facility]#: [id number] : 1975Acct:[id number] Age/Sex: 49 / FADM Date: 08/22/24 Loc: HO.CT Attending Dr: Ted ALLEN Ordering Physician: Ted Beauchamp Date of Service: 08/22/24 Procedure(s): CT abdomen pelvis wo IV con Accession Number(s): [id number] cc: Ted Beauchamp; Tavo Beckman MD Report Number: [id number]: Total DLP = 392.00 mGy-cm EXAMINATION: CT [...] 08/22/24 1210 DD/ 1127 TD/TT: 08/22/24 1150 Aviation Electrician: [facility] External Provider IMG CT PROCEDURES Final Result * (ABNORMAL) CBC auto differential (08/21/2024 9:32 AM EDT) White Blood Count 12.7(H) 4.8 - 10.8 X10*3/uL [facility] Red Blood Count 3.95(L) 4.20 - 5.50 X10*6/uL [facility] Hemoglobin 11.6(L) 12.0 - 16.0 g/dl [facility] Hematocrit 34.8(L) 37.0 - 47.0 % [facility] Mean Corpuscular Volume 88.1 80.0 - 98.0 fL [facility] Mean Corpuscular Hemoglobin 29.4 27.0 - 33.0 pg [facility] Mean Corpuscular HGB Conc 33.3 31.0 - 35.0 g/dl [facility] Red Cell Distribution Width 11.8 11.0 - 16.0 % [facility] Platelet Count 311 160 - 400 X10*3/uL [facility] Mean Platelet Volume 9.4 9.4 - 12.3 fL [facility] Neutrophils Percent Auto 73.1(H) 45 - 73 % [facility] Imm Gran Pct Auto 0.4 0.0 - 0.4 % [facility] Lymphocytes Percent Auto 16.8(L) 20 - 40 % [facility] Monocytes Percent Auto 9.1 2 - 11 % [facility] Eosinophils Percent Auto 0.4 0 - 4 % [facility] Basophils Percent Auto 0.2 0 - 2 % [facility] NRBC Pct Auto 0.0 0.0 - 0.2 /100WBC [facility] Neutrophils Absolute Auto 9.3(H) 2.0 - 8.3 x10*3/uL [facility] Imm Gran Abs Auto 0.05(H) 0.00 - 0.03 X10*3/uL [facility] Lymphocytes Absolute Auto 2.1 1.2 - 4.9 X10*3/uL [facility] Monocytes Absolute Auto 1.2 0.1 - 1.2 X10*3/uL [facility] Eosinophils Absolute Auto 0.1 0.0 - 0.4 X10*3/uL [facility] Basophils Absolute Auto 0.0 0.0 - 0.2 X10*3/uL [facility] NRBC Abs Auto 0.000 0.0 - 0.012 X10*3/uL [facility] 08/21/2024 9:32 AM EDT 08/21/2024 9:32 AM EDT us Generic External Data Provider LAB BLOOD ORDERAB LES Final Result [facility] [address] [place] [phone] * Gram Stain Result (08/13/2024 2:00 PM EDT) 08/13/2024 2:00 PM EDT 08/13/2024 2:20 PM EDT Comment:Abdomen Narrative [facility] - 08/16/2024 8:01 AM EDT [...] DERABLE LABS Final Result Performing Organization Address City/State/[facility] Co de Phone Number [facility] [address] [place] [phone] * BI Mammogram Screening Tomosynthesis Bilateral (07/18/2024 12:10 PM EDT) Anatomical Region Laterality Modality Breast Bilateral Mammography 07/18/2024 12:1 0 PM EDT Narrative 07/27/2024 1:14 PM EDT [address] [place] [address] Mammography Report Signed Patient: Serenity Gómez MR#: [id number] : 1975 Acct:[id number] Age/Sex: 48 / F ADM Date: 07/18/24 Loc: HO.MAMMO Attending Dr: Tavo Beckman MD Ordering Physician: Tavo Beckman MD Results: 1Ne gative Date of Service: 07/18/24 Follow Up: 1 Year From Orig inal Mammogram Procedure(s): MM tomosynthesis screening BI Accession Number(s): [id number] cc: Tavo Beckman MD EXAMINATION: MM SCREENING [...] 07/27/24 1311 DD/ 1210 TD/TT: 07/18/24 1230 Aviation Electrician: Procedure Note Donotuseinterpreter, Image - 07/27/2024 [facility] [address] [place] [address] Mammography Report Signed Patient: Serenity Gómez MMR#: [id number] : 1975Acct:[id number] Age/Sex: 48 / FADM Date: 07/18/24 Loc: [facility]AMZAHO Attending Dr: Tavo Beckman MD Ordering Physician: Tavo Beckman MDResults: 1Ne gative Date of Service: 07/18/24Follow Up: 1 Year From Orig inal Mammogram Procedure(s): MM tomosynthesis screening BI Accession Number(s): [id number] cc: Tavo Beckman MD EXAMINATION: MM SCREENING [...] 07/27/24 1311 DD/ 1210 TD/TT: 07/18/24 1230 Aviation Electrician: Tavo Beckman MD IMG BI PROCEDURES Final Result * Gross and Microscopic Level 3 (06/28/2024 12:08 PM EDT) 06/28/2024 12:0 8 PM EDT 06/28/2024 2:20 PM EDT [facility] - 06/29/2024 4:30 PM EDT ----- ------- Name: Serenity Gómez Age/Sex: 48/F : 1975 Unit#: [id number] Attend Dr: Roel Monzon MD Re06/28/24 Status: [facility] Location: [facility] Disch: ----- ------- SPEC : [id number] RECD: 06/28/24-1419 STATUS: ANA MARÍA FERRERA NUM: [id number] AN: 06/28/241208 SUBM DR: Roel Monzon MD [...] distinct cysts, lesions or nodules are identified. Coloring Room Worker sections are submitted in cassettes A1-A3. CEDS IHC S/NG Disclaimer NOTE: Unless otherwise stated, all tissue is formalin-fixed and paraffin-embedded. Some or all of the immunohistochemical tests reported herein may have been developed and their performance characteristics determined by [facility]. They have not been cleared or approved by the U.S. Food and Drug Administration (FDA). However, the FDA has determined that such clearance or approval is not necessary. This laboratory is certified under the Clinical Laboratory Improvement Amendments of 1988 (CLIA) as qualified to perform high complexity clinical laboratory testing. Copies To: Tavo Beckman MD [address] [address] CONTINUED ON NEXT PAGE ----- ------- Name: Serenity Gómez Age/Sex: 48/F : 1975 Unit#: [id number] Attend Dr: Roel Monzon MD Re06/28/24 Status: [facility] Location: [facility] Disch: ----- ------- SPEC : [id number] RECD: 06/28/24142 STATUS: ANA MARÍA FERRERA NUM: [id number] AN: 06/28/24-[address]: Roel Monzon MD ENTERED: 06/28/24-0638 SP TYPE: Surgical OTHR DR: Tavo Beckman MD ORDERED: Gross Micro L3 Copies To: (Continued) Roel Monzon MD [facility] Weight Management Program [address] [place] [phone] ----- ------- Signed (signature on file) Guillermina Wakefield MD 06/29/24 1630 ----- ------- END OF REPORT Generic External Data Provider LAB CYTOLOGY ORDE RABLES Final Result Performing Organization Address City/[facility] Co de Phone Number [facility] [address] [place] [phone] * (ABNORMAL) Lipid Panel, Standard (02/24/2024 8:29 AM EST) Triglycerides 61 <150 mg/dL [facility] Comment:Desirable Triglyceri de: less than 150 mg/dLBorderline High Triglyceride 150-199 mg/dLHigh Triglyceride: 200-499 mg/dLVery High Triglyceride: greater than or equal to 5OO mg/dL Cholesterol 187 <200 mg/dL [facility] Comment:Desirable Cholestero l: less than 200 mg/dLBorderline High Cholesterol: 200-239 mg/dLHigh Cholesterol: greater than 239 mg/dL LDL Cholesterol Calculated 110(H) <100 mg/dL [facility] Comment:Desirable LDL: less than 100 mg/dLNear Optimal/Above Optimal LDL: 110- 129 mg/dLBorderline High LDL: 130-159 mg/dLHigh LDL: 160-189 mg/dLVery High LDL: greater than or equal to 190 mg/dL HDL Cholesterol 65 >40 mg/dL [facility] Comment:Desirable HDL: great er than 40 mg/dL Note: This HDL assay may give artificially low results in patients with liver disease. 02/24/2024 8:29 AM EST 02/24/2024 8:29 AM EST Generic External Data Provider LAB BLOOD ORDERAB LES Final Result Performing Organization Address City/State/[facility] Co de Phone Number [facility] [address] [place] [phone] [phone] * Pap Smear (12/29/2022 2:49 PM EST) 12/29/2022 2:49 PM EST 01/03/2023 7:00 AM EST Narrative [facility] - 01/13/2023 4:11 PM EST ----- ------- Name: Serenity Gómez Age/Sex: 47/F : 1975 Unit#: [id number] Attend Dr: Chalino Benton MD Re12/29/22 Status: DEP REF Location: HO.LNP Disch: ----- ------- SPEC : [id number] RECD: 01/03/23 STATUS: ANA MARÍA FERRERA NUM: [id number] AN: 12/29/229 [facility] DR: Chalino Benton MD ENTERED: 01/04/23 SP TYPE: Pap Smr SHRUTI DR: Tavo Beckman MD ORDERED: Pap Smear Interpretation Satisfactory for evaluation. Negative for intraepithelial lesion or malignancy. HPV mRNA E6/E7: NOT DETECTED This assay detects E6/E7 viral messenger RNA (mRNA) from 14 high-risk HPV types (16, 18, 31, 33, 35, 39, 45, 51, 52, 56, 58, 59, 66, 68) HPV testing performed by [facility], [place], [place]. See reference laboratory portion of the EMR for entire report. Clinical Information LMP: Postmenopausal Previous PAP test: 2021, ASCUS, HPV+ Material Received ThinPrep-Cervical Copies To: Tavo Beckman MD [address] [place] [address] Chalino Benton MD [address] [place] [address] Dr. [place] [address] [place] [address] ----- ------- Signed (signature on file) MANUEL Uriarte (ASCP) 01/13/23 1611 ----- ------- END OF REPORT us Generic External Data Provider LAB CYTOLOGY NATHALIA GIBBONS Final Result [facility] [address] [place] [phone] * HPV E6/E7 RFLX OLGA 16 18/45 (11/11/2021 3:37 PM EDT) HPV mRNA E6/E7 rflx Not Detected Not Detected [facility] Comment: Methodology: Flagstone Layer-Mediated Amplification This assay detects E6/E7 viral messenger RNA (mRNA) from 14 high-risk HPV types (16,18,31,33,35,39,45,51,52,56,58,59,66,68). Cervical sources are required for HPV testing. If a vaginal source from a patient who has had a total hysterectomy with removal of cervix was submitted, please contact the testing laboratory for alternative testing options. For additional information, please refer to http://[employer]/faq/UTI119d1 (This link if provided for information/ educational purposes only.) THIS TEST WAS PERFORMED AT: [facility] [address] [place] [address] [address] FLOOR,[place] [address] ELIZABETH ANDRES MD 11/11/2021 3:37 PM EDT Chalino Benton MD HISTORICAL/NON ORDERABLE LABS Fi nal Result [facility] * Hm Colonoscopy (07/08/2021 9:47 AM EDT) Historical Provider HEALTH MAINTENANCE Final Result * HIV 1/2 ANTIGEN/ANTIBODY,FOURTH GENERATION W/RFL (10/17/2020 1:05 PM EDT) [facility] HIV-1/2 ANTIGEN AND ANTIBODIES, 4TH GENERATION [...] purpose. For additional information please refer to http://[employer]/faq/FGH783 (This link is being provided for informational/ educational purposes only.) The performance of this assay has not been clinically validated in patients less than 2 years old. 10/17/2020 1:05 PM EDT us Tavo Beckman MD LAB BLOOD ORDERABLES Fin al Result [facility] [address] from Last 3 Months or Most Recently Relevant to Health Maintenance Insurance [facility] Care Teams Information Security Associate Relationship Specialty Start Date End Date Tavo Beckman MD [address] [place] [phone] PCP - General Family Medicine 11/20/18 Tommie TERRY 06/29/24
--- OUTSIDE RECORDS SUMMARY | 2024-09-27 13:10 | XMS_ITS | Clinical Summary ---
Author Organization [employer] [facility] ity Address [address] [place] [address] Care Team Providers Care Foundry Hand Name Role Phone Unavailable Primary Care Provider [...]
[2024-09-27 13:17] VITALS: BP 128/67; PULSE 75; TEMP 35.9; O2SAT 97; BMI 26.5
--- NOTE | 2024-09-27 13:17 | A.OFFVIS_ITS ---
VS Expanded 09/27/24 13:17 BP 128/67 Blood Pressure Location Rt brachial Blood Pressure Position Sitting Pulse 75 Pulse Source Pulse Oximeter Temp 96.7 F L Temperature Source Temporal Artery Scan Pulse Oximetry 97 Oxygen Delivery Method Room Air Height 4 ft 11 in Weight 131 lb 3.2 oz BMI 26.5 Body Fat % 31.6 Body Fat Mass 89.8 Fat Free Mass 6.0 Visceral Fat Rating 48.6 Body Water % 63.8 Body Water Mass 85.0 Muscle Mass/Score 1,224 Intake Visit Reasons: OV Panniculectomy 06/28/24 Allergies No Known Allergies Allergy (Verified 09/27/24 13:18) HPI Comments Details: Patient is a pleasant 49-year-old female who returns to the office today in follow-up. She is status post panniculectomy performed on 06/28/2024. She developed mid incisional abscess with subsequent dehiscence. She received 28 days of Bactrim. About 1 week later, she began to experience more purulent drainage and was placed on another course of Bactrim, today is day 6 of 10 of the 2nd course. She continues to follow the meal plan. Denies fevers or chills. Noted much less drainage. [facility] Medical History (Updated 08/20/24 @ 13:35 by TIFFANY Fox) Excess skin History of vertigo Nephrolithiasis GERD (gastroesophageal reflux disease) Anxiety Depression BMI 39.0-39.9,adult Morbid obesity Right shoulder injury Left lateral epicondylitis Right shoulder tendonitis Carpal tunnel syndrome on both sides Normal vulvar exam Hemorrhoids Diverticulosis Tubular adenoma Encounter for screening colonoscopy Postmenopausal bleeding Well woman exam BENITO III (cervical intraepithelial neoplasia grade III) with severe dysplasia Carpal tunnel syndrome Acute arthritis Seasonal allergic rhinitis Surgical History S/P panniculectomy 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) Hx of colonoscopy (07/2021) Tubal ligation status Family History Mother HTN (hypertension) A-fib Arthritis Father Diabetes HTN (hypertension) Sister Lupus Social History Household Members: Spouse Housing: House Are you a primary rn transitional care to a significant other at home: No Do you presently have visiting nurse or other home services: No Alcohol intake: current Alcohol intake frequency: does not drink Patient Tobacco Use Status: Never used Tobacco service: No Current occupational status: employed 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 Minimal purulence noted. Assessment & Plan Assessment & Plan (1) Post-operative wound abscess: Code(s): T81.49XA - Infection following a procedure, other surgical site, initial encounter Category: Medical Plan: Midline abscess flushed with 50% hydrogen peroxide 50% normal saline. Packed with quarter-inch iodoform gauze. Continue antibiotics Return to clinic tomorrow
== END 2024-09-27 13:19 | disposition home or self-care (01) ==
LOC: HO.HBS 12:50
PROVIDERS: PCP Internal Medicine; Visit Provider Physician Assistant Surgical
DX: T81.49XA Infection following a procedure, other surgical site, initial encounter (principal)
CPT/HCPCS: 99024

== ENCOUNTER → 2024-09-27 12:49 | Outpatient (BNVA) | payer OTHER, SELFPAY | PROVIDERS: PCP Internal Medicine; Visit Provider Physician Assistant Surgical | DX: T81.49XD Infection following a procedure, other surgical site, subsequent encounter (principal) | CPT/HCPCS: 99212 ==

== ENCOUNTER 2024-09-28 12:56 | Outpatient (AMB) | payer OTHER, SELFPAY ==
--- OUTSIDE RECORDS SUMMARY | 2024-09-28 13:00 | XMS_ITS | Clinical Summary ---
Author Organization [employer] [facility] ity Address [address] [place] [address] Care Team Providers Care Senior Physician Name Role Phone Unavailable Primary Care [...]
--- OUTSIDE RECORDS SUMMARY | 2024-09-28 13:00 | XMS_ITS | Clinical Summary ---
Author Organization [facility] Address [address] [place] [address] Care Team Providers Care Bundling Machine Operator Name Role Phone Unavailable Primary [...] 09/11/2024 4:20 PM EDT Office Visit [facility] [address] [place] [address] Thaddeus Wright RDH from Last 3 Months [...] 03/15/2025 3:40 PM EST Office Visit [facility] [address] [place] [phone] Thaddeus Wright, [facility] [address] [place] [address] Health Maintenance Due Date Last Done Comments [...] 08/01/2023 Imm-Zoster, Recombinant (1 of 2) 08/01/2023 [id number] (1 - season) 2023 Alcohol and Drug [...]
--- OUTSIDE RECORDS SUMMARY | 2024-09-28 13:00 | XMS_ITS | Clinical Summary ---
Author Organization [employer] Address [address] [facility] 7[address] [place] [address] Care Team Providers Care Automatic Car Wash Attendant Name Role Phone Tavo Beckman MD Primary Care Provider + Allergies No known active allergies Medications tiZANidine (Zanaflex) 4 MG capsuleIndicati ons:Acute pain of right shoulder Take 1 capsule (4 mg) by mouth 3 times daily. 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 Resolved Problems Problem Noted Date Diagnosed Date Resolved Date Obesity (BMI 30.0-34.9) 12/27/2022 11/0 05/2023 Assessment & Plan (12/27/2022 3:25 PM EST): Status Post bariatric surgery Significant decrease in BMI Continue Multivitamins Iron + zinc supplementation F/u [facility] obesity clinic F/u in 6 mos Morbid obesity 09/03/2011 12/12/2023 Overview (12/12/2023): Sp Laparoscopic sleeve gastrectomy on 11/04/22 at [facility] Assessment & Plan (06/16/2022 11:20 AM EDT): Discussed re weight reduction options including exercise, life style modifications, diet, referral to waste management specialist. Discussed re lower calorie intake, increase dietary fiber I gave her information about weight management program for baritric surgery Encounters Date Type Department Care Team Description 09/13/2024 Refill [facility] [address] [place] [address] Tavo Beckman MD 09/06/2024 Results Follow-Up [facility] [address] [place] [address] Tavo Beckman MD Gram Stain Result 08/22/2024 Orders Only External Provider, [facility] 08/21/2024 Orders Only GENERIC EXTERNAL DATA DEPARTMENT Provider, Generic External Data 08/13/2024 Orders Only GENERIC EXTERNAL DATA DEPARTMENT Provider, Generic External Data 07/18/2024 Orders Only [facility] [address] [place] [address] Tavo Beckman MD 06/28/2024 Orders Only GENERIC [...] AM EDT Narrative 08/22/2024 12:13 PM EDT [place] [address] CT Scan Report Signed Patient: Serenity Gómez MR#: [id number] : 1975 Acct:[id number] Age/Sex: 49 / F ADM Date: 08/22/24 Loc: HO.CT Attending Dr: Ted ALLEN Ordering Physician: Ted Beauchamp Date of Service: 08/22/24 Procedure(s): CT abdomen pelvis wo IV con Accession Number(s): [id number] cc: Ted Beauchamp; Tavo Beckman MD Report Number: [id number]: Total DLP = 392.00 mGy-cm EXAMINATION: CT [...] 08/22/24 1210 DD/ 1127 TD/TT: 08/22/24 1150 Candy Catcher: Procedure Note Donotuseinterpreter, Image - 08/22/[address] [address] [address] Scan Report Signed Patient: Serenity Gómez [facility]#: [id number] : 1975Acct:[id number] Age/Sex: 49 / FADM Date: 08/22/24 Loc: HO.CT Attending Dr: Ted ALLEN Ordering Physician: Ted Beauchamp Date of Service: 08/22/24 Procedure(s): CT abdomen pelvis wo IV con Accession Number(s): [id number] cc: Ted Beauchamp; Tavo Beckman MD Report Number: [id number]: Total DLP = 392.00 mGy-cm EXAMINATION: CT [...] 08/22/24 1210 DD/ 1127 TD/TT: 08/22/24 1150 Candy Catcher: [facility] External Provider IMG CT PROCEDURES Final Result * (ABNORMAL) CBC auto differential (08/21/2024 9:32 AM EDT) White Blood Count 12.7(H) 4.8 - 10.8 X10*3/uL LABS Red Blood Count 3.95(L) 4.20 - 5.50 X10*6/uL LABS Hemoglobin 11.6(L) 12.0 - 16.0 g/dl LABS Hematocrit 34.8(L) 37.0 - 47.0 % LABS Mean Corpuscular Volume 88.1 80.0 - 98.0 fL LABS Mean Corpuscular Hemoglobin 29.4 27.0 - 33.0 pg LABS Mean Corpuscular HGB Conc 33.3 31.0 - 35.0 g/dl LABS Red Cell Distribution Width 11.8 11.0 - 16.0 % LABS Platelet Count 311 160 - 400 X10*3/uL LABS Mean Platelet Volume 9.4 9.4 - 12.3 fL LABS Neutrophils Percent Auto 73.1(H) 45 - 73 % LABS Imm Gran Pct Auto 0.4 0.0 - 0.4 % LABS Lymphocytes Percent Auto 16.8(L) 20 - 40 % LABS Monocytes Percent Auto 9.1 2 - 11 % LABS Eosinophils Percent Auto 0.4 0 - 4 % LABS Basophils Percent Auto 0.2 0 - 2 % LABS NRBC Pct Auto 0.0 0.0 - 0.2 /100WBC LABS Neutrophils Absolute Auto 9.3(H) 2.0 - 8.3 x10*3/uL LABS Imm Gran Abs Auto 0.05(H) 0.00 - 0.03 X10*3/uL LABS Lymphocytes Absolute Auto 2.1 1.2 - 4.9 X10*3/uL LABS Monocytes Absolute Auto 1.2 0.1 - 1.2 X10*3/uL LABS Eosinophils Absolute Auto 0.1 0.0 - 0.4 X10*3/uL LABS Basophils Absolute Auto 0.0 0.0 - 0.2 X10*3/uL LABS NRBC Abs Auto 0.000 0.0 - 0.012 X10*3/uL LABS 08/21/2024 9:32 AM EDT 08/21/2024 9:32 AM EDT us Generic External Data Provider LAB BLOOD ORDERAB LES Final Result LABS [address] [place] [phone] * Gram Stain Result (08/13/2024 2:00 PM EDT) 08/13/2024 2:00 PM EDT 08/13/2024 2:20 PM EDT Comment:Abdomen Narrative LABS - 08/16/2024 8:01 AM EDT Gram [...] DERABLE LABS Final Result Performing Organization Address City/State/[facility] Co de Phone Number LABS [address] [place] [phone] * BI Mammogram Screening Tomosynthesis Bilateral (07/18/2024 12:10 PM EDT) Anatomical Region Laterality Modality Breast Bilateral Mammography 07/18/2024 12:1 0 PM EDT Narrative 07/27/2024 1:14 PM EDT [address] [place] [address] Mammography Report Signed Patient: Serenity Gómez MR#: [id number] : 1975 Acct:[id number] Age/Sex: 48 / F ADM Date: 07/18/24 Loc: HO.MAMMO Attending Dr: Tavo Beckman MD Ordering Physician: Tavo Beckman MD Results: 1Ne gative Date of Service: 07/18/24 Follow Up: 1 Year From Orig inal Mammogram Procedure(s): MM tomosynthesis screening BI Accession Number(s): [id number] cc: Tavo Beckman MD EXAMINATION: MM SCREENING [...] 07/27/24 1311 DD/ 1210 TD/TT: 07/18/24 1230 Candy Catcher: Procedure Note Donotuseinterpreter, Image - 07/27/2024 [facility] [address] [place] [address] Mammography Report Signed Patient: Serenity Gómez MMR#: [id number] : 1975Acct:[id number] Age/Sex: 48 / FADM Date: 07/18/24 Loc: HAMZAHO Attending Dr: Tavo Beckman MD Ordering Physician: Tavo Beckman MDResults: 1Ne gative Date of Service: 07/18/24Follow Up: 1 Year From Orig inal Mammogram Procedure(s): MM tomosynthesis screening BI Accession Number(s): [id number] cc: Tavo Beckman MD EXAMINATION: MM SCREENING [...] 07/27/24 1311 DD/ 1210 TD/TT: 07/18/24 1230 Candy Catcher: Tavo Beckman MD IMG BI PROCEDURES Final Result * Gross and Microscopic Level 3 (06/28/2024 12:08 PM EDT) 06/28/2024 12:0 8 PM EDT 06/28/2024 2:20 PM EDT [facility] LABS - 06/29/2024 4:30 PM EDT ----- ------- Name: Serenity Gómez Age/Sex: 48/F : 1975 Unit#: [id number] Attend Dr: Roel Monzon MD Re06/28/24 Status: [facility] Location: [facility] Disch: ----- ------- SPEC : [id number] RECD: 06/28/24-1419 STATUS: ANA MARÍA FERRERA NUM: [id number] AN: 06/28/241208 SUBM DR: Roel Monzon MD [...] distinct cysts, lesions or nodules are identified. Blasting Contract Miner sections are submitted in cassettes A1-A3. CEDS IHC S/NG Disclaimer NOTE: Unless otherwise stated, all tissue is formalin-fixed and paraffin-embedded. Some or all of the immunohistochemical tests reported herein may have been developed and their performance characteristics determined by [facility]. They have not been cleared or approved by the U.S. Food and Drug Administration (FDA). However, the FDA has determined that such clearance or approval is not necessary. This laboratory is certified under the Clinical Laboratory Improvement Amendments of 1988 (CLIA) as qualified to perform high complexity clinical laboratory testing. Copies To: Taov Beckman MD [address] [address] CONTINUED ON NEXT PAGE ----- ------- Name: Serenity Gómez Age/Sex: 48/F : 1975 Unit#: [id number] Attend Dr: Roel Monzon MD Re06/28/24 Status: [facility] [place]: [facility] Disch: ----- ------- SPEC : [id number] RECD: 06/28/24142 STATUS: ANA MARÍA FERRERA NUM: [id number] AN: 06/28/24-[address]: Roel Monzon MD ENTERED: 06/28/24-9811 SP TYPE: Surgical OTHR DR: Tavo Beckman MD ORDERED: Gross Micro L3 Copies To: (Continued) Roel Monzon MD [facility] Weight Management Program [address] [place] [phone] ----- ------- Signed (signature on file) Guillermina Wakefield MD 06/29/24 1630 ----- ------- END OF REPORT Generic External Data Provider LAB CYTOLOGY ORDE RABLES Final Result Performing Organization Address City/[facility] Co de Phone Number LABS [address] [place] [phone] * (ABNORMAL) Lipid Panel, Standard (02/24/2024 8:29 AM EST) Triglycerides 61 <150 mg/dL [facility] LABS Comment:Desirable Triglyceri de: less than 150 mg/dLBorderline High Triglyceride 150-199 mg/dLHigh Triglyceride: 200-499 mg/dLVery High Triglyceride: greater than or equal to 5OO mg/dL Cholesterol 187 <200 mg/dL LABS Comment:Desirable Cholestero l: less than 200 mg/dLBorderline High Cholesterol: 200-239 mg/dLHigh Cholesterol: greater than 239 mg/dL LDL Cholesterol Calculated 110(H) <100 mg/dL LABS Comment:Desirable LDL: less than 100 mg/dLNear Optimal/Above Optimal LDL: 110- 129 mg/dLBorderline High LDL: 130-159 mg/dLHigh LDL: 160-189 mg/dLVery High LDL: greater than or equal to 190 mg/dL HDL Cholesterol 65 >40 mg/dL [facility] LABS Comment:Desirable HDL: great er than 40 mg/dL Note: This HDL assay may give artificially low results in patients with liver disease. 02/24/2024 8:29 AM EST 02/24/2024 8:29 AM EST Generic External Data Provider LAB BLOOD ORDERAB LES Final Result Performing Organization Address City/State/[facility] Co de Phone Number LABS [address] [place] [phone] * Pap Smear (12/29/2022 2:49 PM EST) 12/29/2022 2:49 PM EST 01/03/2023 7:00 AM EST Narrative LABS - 01/13/2023 4:11 PM EST ----- ------- Name: Serenity Gómez Age/Sex: 47/F : 1975 Unit#: [id number] Attend Dr: Chalino Benton MD Re12/29/22 Status: DEP REF Location: HO.LNP Disch: ----- ------- SPEC : [id number] RECD: 01/03/23 STATUS: ANA MARÍA FERRERA NUM: [id number] AN: 12/29/229 [facility] [address]: Chalino Benton MD ENTERED: [...] 59, 66, 68) HPV testing performed by [employer], [place], [place]. See reference laboratory portion of the EMR for entire report. Clinical Information LMP: Postmenopausal Previous PAP test: 2021, ASCUS, HPV+ Material Received ThinPrep-Cervical Copies To: Tavo Beckman MD [address] [place] [address] Chalino Benton MD [address] [place] [address] [address] [place] [address] [place] [address] ----- ------- Signed (signature on file) MANUEL Uriarte (ASCP) 01/13/23 1611 ----- ------- END OF REPORT us Generic External Data Provider LAB CYTOLOGY NATHALIA GIBBONS Final Result LABS [address] [place] [phone] * HPV E6/E7 RFLX OLGA 16 18/45 (11/11/2021 3:37 PM EDT) HPV mRNA E6/E7 rflx Not Detected Not Detected CONVERTED LEGACY LABS Comment: Methodology: Perinatal Educator-Mediated Amplification This assay detects E6/E7 viral messenger RNA (mRNA) from 14 high-risk HPV types (16,18,31,33,35,39,45,51,52,56,58,59,66,68). Cervical sources are required for HPV testing. If a vaginal source from a patient who has had a total hysterectomy with removal of cervix was submitted, please contact the testing laboratory for alternative testing options. For additional information, please refer to [email or web address]/faq/UVQ989v8 (This link if provided for information/ educational purposes only.) THIS TEST WAS PERFORMED AT: [facility] [address] [place] [address] [address]LO[address],[place] [address] ELIZABETH ANDRES MD 11/11/2021 3:37 PM EDT Chalino Benton MD HISTORICAL/NON ORDERABLE LABS Fi nal Result CONVERTED LEGACY LABS * Hm Colonoscopy (07/08/2021 9:47 AM EDT) Historical Provider HEALTH MAINTENANCE Final Result * HIV 1/2 ANTIGEN/ANTIBODY,FOURTH GENERATION W/RFL (10/17/2020 1:05 PM EDT) [facility] HIV-1/2 ANTIGEN AND ANTIBODIES, 4TH GENERATION W/ [...] purpose. For additional information please refer to [email or web address]/faq/LTQ717 (This link is being provided for informational/ educational purposes only.) The performance of this assay has not been clinically validated in patients less than 2 years old. 10/17/2020 1:05 PM EDT us Tavo Beckman MD LAB BLOOD ORDERABLES Fin al Result [facility] [address] from Last 3 Months or Most Recently Relevant to Health Maintenance Insurance [facility] Care Teams Automatic Car Wash Attendant Relationship Specialty Start Date End Date Tavo Beckman MD [address] [place] [phone] PCP - General Family Medicine 11/20/18 Tommie TERRY 06/29/24
--- NOTE | 2024-09-28 13:16 | A.OFFVIS_ITS ---
VS Expanded 09/28/24 13:33 BP 136/82 Blood Pressure Location Rt brachial Blood Pressure Position Sitting Pulse 76 Pulse Source Pulse Oximeter Temp 97.3 F Temperature Source Temporal Artery Scan Pulse Oximetry 98 Oxygen Delivery Method Room Air Height 4 ft 11 in Weight 130 lb 3.2 oz BMI 26.3 Body Fat % 31.2 Body Fat Mass 40.6 Fat Free Mass 89.6 Visceral Fat Rating 6.0 Body Water % 48.8 Body Water Mass 63.4 Muscle Mass/Score 84.8 Basal Metabolic Rate/Score 1,220 Intake Visit Reasons: OV Panniculectomy 06/28/24 Allergies No Known Allergies Allergy (Verified 09/28/24 13:35) HPI Comments Details: Pleasant 49-year-old female returns to the office today in follow-up. She is status post panniculectomy performed on 06/28/2024. She developed postoperative abscess in the midline which has been packed on a daily basis as well as flush with 50% hydrogen peroxide 50% normal saline. She received 28 days of Bactrim DS 1 p.o. b.i.d.. After 6 days she developed increased purulence and was placed on another course of Bactrim, today is day 7 of 10. She states that at some point last night the packing strip came out. She continues to report feeling well and no complaints. [facility] Medical History (Updated 08/20/24 @ 13:35 by TIFFANY Fox) Excess skin History of vertigo Nephrolithiasis GERD (gastroesophageal reflux disease) Anxiety Depression BMI 39.0-39.9,adult Morbid obesity Right shoulder injury Left lateral epicondylitis Right shoulder tendonitis Carpal tunnel syndrome on both sides Normal vulvar exam Hemorrhoids Diverticulosis Tubular adenoma Encounter for screening colonoscopy Postmenopausal bleeding Well woman exam BENITO III (cervical intraepithelial neoplasia grade III) with severe dysplasia Carpal tunnel syndrome Acute arthritis Seasonal allergic rhinitis Surgical History S/P panniculectomy 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) Hx of colonoscopy (07/2021) Tubal ligation status Family History Mother HTN (hypertension) A-fib Arthritis Father Diabetes HTN (hypertension) Sister Lupus Social History (Reviewed 08/22/25 @ 13:35 by PAVEL Torres Household Members: Spouse Housing: House Are you a primary nurse wound care to a significant other at home: No Do you presently have visiting nurse or other home services: No Alcohol intake: current Alcohol intake frequency: does not drink Patient Tobacco Use Status: Never used Tobacco service: No Current occupational status: employed 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 It is now about 2 mm open. This was probed with Marlee clamps, flushed with hydrogen peroxide and normal saline however unable to be packed with any packing whatsoever. Scant bacitracin applied and covered with dry clean dressing Assessment & Plan Assessment & Plan (1) Post-operative wound abscess: Code(s): T81.49XA - Infection following a procedure, other surgical site, initial encounter Category: Medical Plan: Patient will apply scant bacitracin daily. This can no longer be packed. Continue oral antibiotics. Return to clinic Tuesday.
[2024-09-28 13:33] VITALS: BP 136/82; PULSE 76; TEMP 36.3; O2SAT 98; BMI 26.3
== END 2024-09-28 13:45 | disposition home or self-care (01) ==
LOC: HO.HBS 12:56
PROVIDERS: PCP Internal Medicine; Visit Provider Physician Assistant Surgical
DX: T81.49XA Infection following a procedure, other surgical site, initial encounter (principal)
CPT/HCPCS: 99213

== ENCOUNTER → 2024-09-28 12:56 | Outpatient (BNVA) | payer OTHER, SELFPAY | PROVIDERS: PCP Internal Medicine; Visit Provider Physician Assistant Surgical | DX: T81.49XD Infection following a procedure, other surgical site, subsequent encounter (principal) | CPT/HCPCS: 99212 ==

== ENCOUNTER 2024-10-01 13:39 | Outpatient (AMB) | payer OTHER, SELFPAY ==
--- NOTE | 2024-10-01 13:51 | MHC.OFFVISWM ---
VS Expanded 10/01/24 13:52 BP 122/73 Blood Pressure Location Rt brachial Blood Pressure Position Sitting Pulse 69 Pulse Source Pulse Oximeter Temp 97.8 F Temperature Source Temporal Artery Scan Pulse Oximetry 99 Oxygen Delivery Method Room Air Height 4 ft 11 in Weight 131 lb 9.6 oz BMI 26.6 Body Fat % 30.7 Body Fat Mass 40.4 Fat Free Mass 91 Visceral Fat Rating 6 Body Water % 49.2 Body Water Mass 64.6 Muscle Mass/Score 86.4 Basal Metabolic Rate/Score 1,237 Intake Visit Reasons: OV Panniculectomy 06/28/24 Allergies No Known Allergies Allergy (Verified 10/01/24 13:55) Medication List - Last Reconciled 10/01/24 by Khalif Tucker RN cholecalciferol (vitamin D3) 125 mcg PO DAILY docusate sodium (Colace) 100 mg PO DAILY afinqjsgdorz-gvs-hktm-FA-vit K 45 mg iron- 800 mcg-120 mcg (Bariatric Multivitamins) 1 cap PO DAILY ondansetron 4 mg PO Q6H PRN sennosides (senna) 17.2 mg (2 x 8.6 mg) PO BEDTIME PRN sulfamethoxazole-trimethoprim 800-160 mg (Bactrim DS) 1 tab PO BID 10 days HPI Comments Details: Patient is a pleasant 49-year-old female returns to the office today in follow-up. She is status post panniculectomy on 06/28/2024. She developed postoperative abscess requiring almost daily attention. This was flushed with 50% normal saline and 50% hydrogen peroxide. She underwent a 28 day course of Bactrim DS 1 tab p.o. b.i.d. for MRSA culture positive bacteria. She developed increased purulence 7 days after completion and when was given another 10 days of antibiotics. Her wound has now closed up and she has completed all antibiotics. REPLACED BY [facility] Medical History (Updated 08/20/24 @ 13:35 by TIFFANY Fox) Excess skin History of vertigo Nephrolithiasis GERD (gastroesophageal reflux disease) Anxiety Depression BMI 39.0-39.9,adult Morbid obesity Right shoulder injury Left lateral epicondylitis Right shoulder tendonitis Carpal tunnel syndrome on both sides Normal vulvar exam Hemorrhoids Diverticulosis Tubular adenoma Encounter for screening colonoscopy Postmenopausal bleeding Well woman exam BENITO III (cervical intraepithelial neoplasia grade III) with severe dysplasia Carpal tunnel syndrome Acute arthritis Seasonal allergic rhinitis Surgical History S/P panniculectomy 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) Hx of colonoscopy (07/2021) Tubal ligation status Family History Mother HTN (hypertension) A-fib Arthritis Father Diabetes HTN (hypertension) Sister Lupus Social History Household Members: Spouse Housing: House Are you a primary day care attendant to a significant other at home: No Do you presently have visiting nurse or other home services: No Alcohol intake: current Alcohol intake frequency: does not drink Patient Tobacco Use Status: Never used Tobacco service: No Current occupational status: employed 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 No underlying induration, fluctuance, overlying erythema or tenderness. Assessment & Plan Assessment & Plan (1) Post-operative wound abscess: Code(s): T81.49XA - Infection following a procedure, other surgical site, initial encounter Category: Medical Plan: Abscess now healed. Continue meal plan as directed by Dr. Monzon. She no longer needs to wear her abdominal binder. She may shower without restriction
[2024-10-01 13:52] VITALS: BP 122/73; PULSE 69; TEMP 36.6; O2SAT 99; BMI 26.6
--- OUTSIDE RECORDS SUMMARY | 2024-10-01 14:58 | XMS_ITS | Encounter Summary ---
Author Organization [employer] Address [address] [facility] [address] [place] [address] Care Team Providers Care Revenue Coordinator Name Role Phone Basilia Colon MD Primary Care Provider + Encounter Details Date Type Department Care Team (Late st Contact Info) Description 09/06/2024 Results Follow-Up [facility]ICINE [address] [place], [place] [phone] Basilia Colon MD [address] [place] [address] Gram Stain Result Social History Tobacco Use Types Packs/Day Years [...] as of this encounter Miscellaneous Notes * Result Encounter Note - Basilia Colon MD - 09/06/2024 9:07 AM EDT Abdominal abscess culture reviewed, patient is being treated by surgery (bariatric surgery) for panniculitis/abscess and surgical site, with Bactrim documented in this encounter Plan of Treatment Not on file documented as of this encounter Visit Diagnoses Not on filedocumented in this encounter Care Teams Revenue Coordinator Relationship Specialty Start Date End Date Basilia Colon MD [address] [place] [phone] PCP - General Family Medicine 12/27/17 Tommie TERRY 06/29/24 documented as of this encounter
--- OUTSIDE RECORDS SUMMARY | 2024-10-01 14:58 | XMS_ITS | Encounter Summary ---
Author Organization [employer] Address [address] [facility] [address]t [place] [address] Care Team Providers Care Manager Call Center Name Role Phone Basilia Colon MD Primary Care Provider + Encounter Details Date Type Department Care Team (Late st Contact Info) Description 07/05/2023 Orders Only [facility] MED[facility]INE [address] [place] [address] ProviderBouchra MD Social History Tobacco Use Types [...] on filedocumented in this encounter Care Teams Manager Call Center Relationship Specialty Start Date End Date Basilia Colon MD [address] [place] [address] PCP - General Family Medicine 12/27/17 Tommie TERRY 06/29/24 documented as of this encounter
--- OUTSIDE RECORDS SUMMARY | 2024-10-01 14:58 | XMS_ITS | Encounter Summary ---
Author Organization [employer] Address [address] [facility] [address]t [place] [address] Care Team Providers Care Grinder Mill Operator Name Role Phone Basilia Colon MD Primary Care Provider + Encounter Details Date Type Department Care Team (Late st Contact Info) Description 11/10/2022 Abstract [facility] MED[facility]INE [address] [place] [address] Jannet Yoder Social History Tobacco Use Types [...] on filedocumented in this encounter Care Teams Grinder Mill Operator Relationship Specialty Start Date End Date Basilia Colon MD [address] [place] [phone] PCP - General Family Medicine 12/27/17 Tommie TERRY 06/29/24 documented as of this encounter
--- OUTSIDE RECORDS SUMMARY | 2024-10-01 14:58 | XMS_ITS | Clinical Summary ---
Author Organization [employer] [facility] ity Address [address] [place] [address] Care Team Providers Care Arc Welding Machine Operator Name Role Phone Unavailable Primary [...]
--- OUTSIDE RECORDS SUMMARY | 2024-10-01 14:58 | XMS_ITS | Clinical Summary ---
Author Organization [employer] Address [address] [facility] 7t [place] [address] Care Team Providers Care Cook Chief Name Role Phone Tavo Beckman MD Primary Care Provider + Allergies No known active allergies Medications tiZANidine (Zanaflex) 4 MG capsuleIndicati ons:Acute pain of right shoulder Take 1 capsule (4 mg) by mouth 3 times daily. 90 capsule 1 3 Active ergocalciferol (Vitamin D2) 1.25 MG (22366 UT) capsule TAKE 1 CAPSULE BY MOUTH [...] Resolved, last PAP was wnl Fu w/ DENTAL SERVICE TECHNICIAN for PAP smear 12/2023 Assessment & Plan (06/16/2022 11:21 AM EDT): PAP smear on 12/03/21 showed NIL/+HPV FU with DENTAL SERVICE TECHNICIAN on 11/2022 Human papilloma virus infection [...] exercise, life style modifications, diet, referral to fish hatchery specialist. Discussed re lower calorie intake, increase dietary fiber I gave her information about weight management program for baritric surgery Encounters Date Type Department Care Team Description 09/13/2024 Refill [facility] [address] [place] [address] Tavo Beckman MD 09/06/2024 Results Follow-Up [facility] [address] [place] [address] Tavo Beckman MD Gram Stain Result 08/22/2024 Orders Only [facility] External Provider, [facility] 08/21/2024 Orders Only GENERIC EXTERNAL DATA DEPARTMENT Provider, Generic External Data 08/13/2024 Orders Only GENERIC EXTERNAL DATA DEPARTMENT Provider, Generic External Data 07/18/2024 Orders Only [facility] [address] [place] [address] Tavo Beckman MD from Last 3 Months Immunizations Immunization Administration [...] TOMOSYNTHESIS BILATERAL Routine 07/18/2024 12:10 PM EDT LIPID PANEL, STANDARD Routine 02/24/2024 [...] AM EDT Narrative 08/22/2024 12:13 PM EDT [address] [address] [address] Scan Report Signed Patient: Serenity Gómez MR#: [id number] : 1975 Acct:[id number] Age/Sex: 49 / F ADM Date: 08/22/24 Loc: HO.CT Attending Dr: Ted ALLEN Ordering Physician: Ted Beauchamp Date of Service: 08/22/24 Procedure(s): CT abdomen pelvis wo IV con Accession Number(s): [id number] cc: Ted Beauchamp; Tavo Beckman MD Report Number: [id number]: Total DLP = 392.00 mGy-cm EXAMINATION: CT [...] 08/22/24 1210 DD/ 1127 TD/TT: 08/22/24 1150 Locket Maker: Procedure Note Donotuseinterpreter, Image - 08/22/[address] [address] [address] Scan Report Signed Patient: Serenity Gómez [facility]#: [id number] : 1975Acct:[id number] Age/Sex: 49 / FADM Date: 08/22/24 Loc: HO.CT Attending Dr: Ted ALLEN Ordering Physician: Ted Beauchamp Date of Service: 08/22/24 Procedure(s): CT abdomen pelvis wo IV con Accession Number(s): [id number] cc: Ted Beauchamp; Tavo Beckman MD Report Number: [id number]: Total DLP = 392.00 mGy-cm EXAMINATION: CT [...] 08/22/24 1210 DD/ 1127 TD/TT: 08/22/24 1150 Locket Maker: [facility] External Provider IMG CT PROCEDURES Final [...] ORDERAB LES Final Result Performing Organization Address City/State/[facility] Co de Phone Number [facility] [address] [place] [phone] * Gram Stain Result (08/13/2024 2:00 [...] Provider HISTORICAL/NON OR DERABLE LABS Final Result [facility] [address] [place] [address] [phone] * BI Mammogram Screening Tomosynthesis Bilateral (07/18/2024 12:10 PM EDT) Anatomical Region Laterality Modality Breast Bilateral Mammography 07/18/2024 12:1 0 PM EDT Narrative 07/27/2024 1:14 PM EDT [address] [place] [address] Mammography Report Signed Patient: Serenity Gómez MR#: [id number] : 1975 Acct:[id number] Age/Sex: 48 / F ADM Date: 07/18/24 Loc: HO.MAMMO Attending Dr: Tavo Beckman MD Ordering Physician: Tavo Beckman MD Results: 1Ne gative Date of Service: 07/18/24 Follow Up: 1 Year From [facility] Mammogram Procedure(s): MM tomosynthesis screening BI Accession Number(s): [id number] cc: Tavo Beckman MD EXAMINATION: MM SCREENING [...] 07/27/24 1311 DD/ 1210 TD/TT: 07/18/24 1230 Locket Maker: Procedure Note Donotuseinterpreter, Image - 07/27/2024 [facility] [address] [place] [address] Mammography Report Signed Patient: Serenity Gómez MMR#: [id number] : 1975Acct:[id number] Age/Sex: 48 / FADM Date: 07/18/24 Loc: .MAMMO Attending Dr: Tavo Beckman MD Ordering Physician: Tavo Beckman MDResults: 1Ne gative Date of Service: 07/18/24Follow Up: 1 Year From [facility] Mammogram Procedure(s): MM tomosynthesis screening BI Accession Number(s): [id number] cc: Tavo Beckman MD EXAMINATION: MM SCREENING [...] 07/27/24 1311 DD/ 1210 TD/TT: 07/18/24 1230 Locket Maker: us Tavo Beckman MD IMG BI PROCEDURES Final Result * (ABNORMAL) Lipid Panel, Standard (02/24/2024 8:29 AM EST) Triglycerides 61 <150 mg/dL [facility] Comment:Desirable Triglyceri de: less than 150 [...] 190 mg/dL HDL Cholesterol 65 >40 mg/dL [facility] Comment:Desirable HDL: great er than 40 mg/dL Note: This HDL assay may give artificially low results in patients with liver disease. 02/24/2024 8:29 AM EST 02/24/2024 8:29 AM EST us Generic External Data Provider LAB BLOOD ORDERAB LES Final Result [facility] [address] [place] [phone] * Pap Smear (12/29/2022 2:49 PM EST) 12/29/2022 2:49 PM EST 01/03/2023 7:00 AM EST Narrative [facility] - 01/13/2023 4:11 PM EST ----- ------- Name: Serenity Gómez Age/Sex: 47/F : 1975 Unit#: [id number] Attend Dr: Chalino Benton MD Re12/29/22 Status: DEP REF Location: .LNP Disch: ----- ------- SPEC : [id number] RECD: 01/03/23 STATUS: ANA MARÍA FERRERA NUM: [id number] AN: 12/29/221449 [facility] DR: Chalino Benton MD ENTERED: 01/04/231317 SP TYPE: Pap Smr OTHR DR: Tavo Beckman MD ORDERED: Pap Smear Interpretation Satisfactory for evaluation. Negative for intraepithelial lesion or malignancy. HPV mRNA E6/E7: NOT DETECTED This assay detects E6/E7 viral messenger RNA (mRNA) from 14 high-risk HPV types (16, 18, 31, 33, 35, 39, 45, 51, 52, 56, 58, 59, 66, 68) HPV testing performed by [facility], [place], [place]. See reference laboratory portion of the EMR for entire report. Clinical Information LMP: Postmenopausal Previous PAP test: 2021, ASCUS, HPV+ Material Received ThinPrep-Cervical Copies To: Tavo Beckman MD [address] [place] [address] Chalino Benton MD [address] [place] [address] Dr. [place] [address] [place] [phone] ----- ------- Signed (signature on file) MANUEL Uriarte (ASCP) 01/13/23 1611 ----- ------- END OF REPORT us Generic External Data Provider LAB CYTOLOGY NATHALIA GIBBONS Final Result [facility] [address] [place] [address] [phone] * HPV E6/E7 RFLX OLGA 16 18/45 (11/11/2021 3:37 PM EDT) HPV mRNA E6/E7 rflx Not Detected Not Detected [facility] Comment: Methodology: Centrifugal Extractor Operator-Mediated Amplification This assay detects E6/E7 viral messenger RNA (mRNA) from 14 high-risk HPV types (16,18,31,33,35,39,45,51,52,56,58,59,66,68). Cervical sources are required for HPV testing. If a vaginal source from a patient who has had a total hysterectomy with removal of cervix was submitted, please contact the testing laboratory for alternative testing options. For additional information, please refer to http://[employer]/faq/JQK479z2 (This link if provided for information/ educational purposes only.) THIS TEST WAS PERFORMED AT: [facility] [address] [place] [address],[place] [address] ELIZABETH ANDRES MD 11/11/2021 3:37 PM EDT Chalino Benton MD HISTORICAL/NON ORDERABLE LABS Fi nal Result [facility] * Hm Colonoscopy (07/08/2021 9:47 AM EDT) Historical Provider HEALTH MAINTENANCE Final Result * HIV 1/2 ANTIGEN/ANTIBODY,FOURTH GENERATION W/RFL (10/17/2020 1:05 PM EDT) Pathologist [facility] HIV-1/2 ANTIGEN AND ANTIBODIES, 4TH GENERATION [...] purpose. For additional information please refer to http://education.[employer]/faq/SHN084 (This link is being provided for informational/ educational purposes only.) The performance of this assay has not been clinically validated in patients less than 2 years old. 10/17/2020 1:05 PM EDT us Tavo Beckman MD LAB BLOOD ORDERABLES Fin al Result [facility] [address] from Last 3 Months or Most Recently Relevant to Health Maintenance Insurance [id number] Care Teams Cook Chief Relationship Specialty Start Date End Date Tavo Beckman MD [address] [place] [address] PCP - General Family Medicine 12/27/17 [place] [facility] 06/29/24
--- OUTSIDE RECORDS SUMMARY | 2024-10-01 14:58 | XMS_ITS | Encounter Summary ---
Author Organization [employer] Address [address] [place] [address] 7t [place] [address] Care Team Providers Care Coloring Room Worker Name Role Phone Basilia Colon MD Primary Care Provider + Encounter Details Date Type Department Care Team (Late st Contact Info) Description 07/29/2022 Abstract [facility] [address] [place], [place] [phone] Basilia Colon MD [address] [place], [place] [phone] Social History Tobacco Use Types Packs/Day Years [...] on filedocumented in this encounter Care Teams Coloring Room Worker Relationship Specialty Start Date End Date Basilia Colon MD [address] [place], [place] [phone] PCP - General Family Medicine 12/27/17 [facility] 06/29/24 documented as of this encounter
--- OUTSIDE RECORDS SUMMARY | 2024-10-01 14:58 | XMS_ITS | Clinical Summary ---
Author Organization [facility] Address [address] [place] [address] Care Team Providers Care Erosion Control Specialist Name Role Phone Unavailable Primary Care [...] Description 09/11/2024 4:20 PM EDT Office Visit [facility] [address] [place] [phone] Thaddeus Wright RDH from Last 3 Months [...] Description 03/15/2025 3:40 PM EST Office Visit [facility] [address] [place] [phone] Thaddeus Wright, [facility] [address] [place] [address] Health Maintenance Due Date Last Done Comments [...] 08/01/2023 Imm-Zoster, Recombinant (1 of 2) 08/01/2023 Jod-IBPTA-45 (1 - season) 2023 Alcohol and Drug [...]
== END 2024-10-01 14:06 | disposition home or self-care (01) ==
LOC: HO.HBS 13:40
PROVIDERS: PCP Internal Medicine; Visit Provider Physician Assistant Surgical
DX: T81.49XA Infection following a procedure, other surgical site, initial encounter (principal)
CPT/HCPCS: 99213

== ENCOUNTER → 2024-10-01 13:39 | Outpatient (BNVA) | payer OTHER, SELFPAY | PROVIDERS: PCP Internal Medicine; Visit Provider Physician Assistant Surgical | DX: T81.49XA Infection following a procedure, other surgical site, initial encounter (principal) | CPT/HCPCS: 99212 ==

== ENCOUNTER 2024-12-26 13:27 | Outpatient (AMB) | payer OTHER, SELFPAY ==
--- NOTE | 2024-12-26 13:31 | A.OFFVIS_ITS ---
VS Expanded 12/26/24 13:43 BP 150/70 H Blood Pressure Location Rt brachial Blood Pressure Position Sitting Pulse 83 Pulse Source Pulse Oximeter Temp 96.5 F L Temperature Source Temporal Artery Scan Pulse Oximetry 95 Oxygen Delivery Method Room Air Height 4 ft 11 in Weight 139 lb BMI 28.1 Body Fat % 29.8 Body Fat Mass 41.6 Fat Free Mass 98.2 Visceral Fat Rating 6.0 Body Water % 49.8 Body Water Mass 69.6 Muscle Mass/Score 93.0 Basal Metabolic Rate/Score 1,321 Intake Visit Reasons: OV Panniculectomy 06/28/24 *Per [facility] See Hab Housing* Quarter Section Ironer Required: Yes Quarter Section Ironer Name: Bernie [id number] Information Interpreted: clinical only Allergies No Known Allergies Allergy (Verified 12/26/24 13:50) Medication List - Last Reconciled 12/26/24 by TIFFANY Clay cholecalciferol (vitamin D3) 125 mcg PO DAILY docusate sodium (Colace) 100 mg PO DAILY kasxesgxxybe-vsb-tmkh-FA-vit K 45 mg iron- 800 mcg-120 mcg (Bariatric Multivitamins) 1 cap PO DAILY ondansetron 4 mg PO Q6H PRN sennosides (senna) 17.2 mg (2 x 8.6 mg) PO BEDTIME PRN HPI Comments Details: Patient is a pleasant 49-year-old female returns to the office today in follow- up. She is status post panniculectomy on 06/28/2024. She developed postoperative abscess requiring almost daily attention. This was flushed with 50% normal saline and 50% hydrogen peroxide. She underwent a 28 day course of Bactrim DS 1 tab p.o. b.i.d. for MRSA culture positive bacteria. She developed increased purulence 7 days after completion and when was given another 10 days of antibiotics. Her wound has now closed up and she has completed all antibiot ics. No new issues. Wound has remained closed without issues. She denies pain. She notes increase in weight after traveling to [place]; ate fries, rice. She recognizes she needs to get back on track with nutrition. Has not been exercising other than walking due to concern over abdomen healing. Has treadmill, elliptical and bike at home, sometimes goes to gym. [facility] Medical History (Updated 08/20/24 @ 13:35 by TIFFANY Fox) Excess skin History of vertigo Nephrolithiasis GERD (gastroesophageal reflux disease) Anxiety Depression BMI 39.0-39.9,adult Morbid obesity Right shoulder injury Left lateral epicondylitis Right shoulder tendonitis Carpal tunnel syndrome on both sides Normal vulvar exam Hemorrhoids Diverticulosis Tubular adenoma Encounter for screening colonoscopy Postmenopausal bleeding Well woman exam BENITO III (cervical intraepithelial neoplasia grade III) with severe dysplasia Carpal tunnel syndrome Acute arthritis Seasonal allergic rhinitis Surgical History S/P panniculectomy 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) Hx of colonoscopy (07/2021) Tubal ligation status Family History Mother HTN (hypertension) A-fib Arthritis Father Diabetes HTN (hypertension) Sister Lupus Social History Household Members: Spouse Housing: House Are you a primary manager critical care to a significant other at home: No Do you presently have visiting nurse or other home services: No Alcohol intake: current Alcohol intake frequency: does not drink Patient Tobacco Use Status: Never used Tobacco service: No Current occupational status: employed 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 No underlying induration, fluctuance, overlying erythema or tenderness Neuro General: patient oriented x3 Assessment & Plan Assessment & Plan (1) S/P laparoscopic sleeve gastrectomy: Onset Date: 10/2022 Code(s): Z98.84 - Bariatric surgery status Category: Surgical (2) Overweight (BMI 25.0-29.9): Code(s): E66.3 - Overweight Category: Medical (3) S/P panniculectomy: Code(s): Z98.890 - Other specified postprocedural states Category: Surgical Plan Panniculectomy abscess remains healed. Pt requests assistance with new meal plan to help with additional weight loss. Gave [employer] maddie download info and encouraged pt to follow a plan from this. She will resume exercise with home equipment- treadmill, elliptical, bike. Goal 2000 ginger/week burned via exercise. RTC 4mo.
[2024-12-26 13:43] VITALS: BP 150/70; PULSE 83; TEMP 35.8; O2SAT 95; BMI 28.1
--- OUTSIDE RECORDS SUMMARY | 2024-12-27 01:26 | XMS_ITS | Encounter Summary ---
Author Organization [employer] Address [address] [facility] 7t [place] [address] Care Team Providers Care Health Promotion Manager Name Role Phone Basilia Colon MD Primary Care Provider + Encounter Details Date Type Department Care Team (Late st Contact Info) Description 07/05/2023 Orders Only [facility] [address] [place] [address] ProviderBouchra MD Social History Tobacco Use Types [...] Care Team (Late st Contact Info) Description 03/08/2025 11:45 AM EST Office Visit [facility] [address] [place] [phone] Basilia Colon MD [address] [place] [address] documented as of this encounter Procedures Procedure Name Priority Date/Time Associated Diagnosis Comments HM COLONOSCOPY Routine 07/08/2021 9:47 AM EDT documented in this encounter Results * Hm Colonoscopy (07/08/2021 9:47 AM EDT) Historical Provider [facility] Final Result documented in this encounter Visit Diagnoses Not on filedocumented in this encounter Care Teams Health Promotion Manager Relationship Specialty Start Date End Date Basilia Colon MD [address] [place] [address] PCP - General Family Medicine 12/27/17 [place] [facility] 06/29/24 documented as of this encounter
--- OUTSIDE RECORDS SUMMARY | 2024-12-27 01:26 | XMS_ITS | Encounter Summary ---
Author Organization [employer] Address [address] [place] [address] [address] [place] [address] Care Team Providers Care Environmental Engineer Scientist Name Role Phone Basilia Colon MD Primary Care Provider + Encounter Details Date Type Department Care Team (Late Contact Info) Description 11/10/2022 Abstract [facility] [address] [place] [phone] Jannet Yoder Social History Tobacco Use Types [...] Department Care Team (Late Contact Info) Description 03/08/2025 11:45 AM EST Office Visit [facility] [address] [place] [phone] Basilia Colon MD [address] [place], [place] [phone] documented as of this encounter Procedures Procedure [...] on filedocumented in this encounter Care Teams Environmental Engineer Scientist Relationship Specialty Start Date End Date Basilia Colon MD [address] [place] [phone] PCP - General Family Medicine 12/27/17 [facility] 06/29/24 documented as of this encounter
--- OUTSIDE RECORDS SUMMARY | 2024-12-27 01:26 | XMS_ITS | Encounter Summary ---
Author Organization [employer] Address [address] [place] [address] 7 [place] [address] Care Team Providers Care Conveyor Monitor Name Role Phone Basilia Colon MD Primary Care Provider + Encounter Details Date Type Department Care Team (Late Contact Info) Description 07/29/2022 Abstract [facility] [address] [place] [phone] Basilia Colon MD [address] [place] [address] [phone] Social History Tobacco Use Types Packs/Day Years [...] 11:45 AM EST Office Visit [facility] [address] [place] [phone] Basilia Colon MD [address] [place] [address] [phone] documented as of this encounter Visit Diagnoses Not on filedocumented in this encounter Care Teams Conveyor Monitor Relationship Specialty Start Date End Date Basilia Colon MD [address] [place] [phone] PCP - General Family Medicine 12/27/17 [place] TERRY 06/29/24 documented as of this encounter
--- OUTSIDE RECORDS SUMMARY | 2024-12-27 01:26 | XMS_ITS | Clinical Summary ---
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 90 capsule 1 03/09/2022 Active ergocalciferol (Vitamin D2) 1.25 MG (81548 UT) capsule TAKE 1 CAPSULE BY MOUTH [...] (12/12/2023 1:26 PM EST): On 10/2022 at [facility] Overweight 12/12/2023 Assessment & Plan (09/07/2024 3:03 [...] ng multiple sites with positive rheumatoid factor ([facility]) 03/09/2022 Assessment & Plan (09/07/2024 3:04 PM [...] Resolved, last PAP was wnl Fu w/ [employer] for PAP smear 12/2023 Assessment & Plan (06/16/2022 11:21 AM EDT): PAP smear on 12/03/21 showed NIL/+HPV FU with [employer] on 11/2022 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 Resolved Problems Problem Noted Date Diagnosed Date Resolved Date Obesity (BMI 30.0-34.9) 12/27/2022 11/0 05/2023 Assessment & Plan (12/27/2022 3:25 PM EST): Status Post bariatric surgery Significant decrease in BMI Continue Multivitamins Iron + zinc supplementation F/u [facility] obesity clinic F/u in 6 mos Morbid obesity (CMS/HCC) 09/03/201105/2023 Overview (12/12/2023): Sp Laparoscopic sleeve gastrectomy on 11/04/22 at [facility] Assessment & Plan (06/16/2022 11:20 AM EDT): Discussed re weight reduction options including exercise, life style modifications, diet, referral to risk management specialist. Discussed re lower calorie intake, increase dietary fiber I gave her information about weight management program for baritric surgery Encounters Date Type Department Care Team Description 12/25/2024 Telephone [facility] MEDICINE [address] [place] [address] Tavo Beckman MD February Recall from Last 3 Months Immunizations Immunization Administration [...] 06/22/2024 11:29 AM EDT Plan of Treatment Upcoming Encounters Date Type Department Care Team (Late st Contact Info) Description 03/08/2025 11:45 AM EST Office Visit [facility] [address] [place], [place] [phone] Tavo Beckman MD [address] [place], [place] [phone] Health Maintenance Due Date Last Done Comments CT Colonography 1973 FIT DNA/Cologuard 1973 FIT 1973 FOBT 1975 Sigmoidoscopy 1973 Alcohol/Substance Use Screening 1985 Family Planning (PISQ) 1988 Hepatitis C Screening 08/01/1991 DTaP/Tdap/Td Vaccines (2 - Td or Tdap) 01/05/2021 01/05/2011 Pneumococcal Vaccine: 50+ Years (1 of 1 - PCV) 08/01/2023 Zoster Vaccines (1 of 2) 08/01/2023 COVID-19 Vaccine (3 - season) 2024 11/07/2020, 10/17/2020 Influenza Vaccine (#1) 2024 , 11/07/2020, 11/03/2010 SDOH Screening 06/15/2025 06/15/2024 Depression Screening 06/22/2025 [...] Narrative 07/27/2024 1:14 PM EDT [facility] [address] [place] [address] Mammography Report Signed Patient: Serenity Gómez MR#: [id number] : 1975 Acct:[id number] Age/Sex: 48 / F ADM Date: 07/18/24 Loc: HO.MAMMO Attending Dr: Tavo Beckman MD Ordering Physician: Tavo Beckman MD Results: 1Ne gative Date of Service: 07/18/24 Follow Up: 1 Year From Orig ina Mammogram Procedure(s): MM tomosynthesis screening BI Accession Number(s): [id number] cc: Tavo Beckman MD EXAMINATION: MM SCREENING [...] 07/27/24 1311 DD/ 1210 TD/TT: 07/18/24 1230 Ostrich Farmer: Procedure Note Donotuseinterpreter, Image - 07/27/2024 [facility] [address] [place] [address] [place] [address] Mammography Report Signed Patient: Serenity Gómez MMR#: [id number] : 1975Acct:[id number] Age/Sex: 48 / FADM Date: 07/18/24 Loc: HO.MAMMO Attending Dr: Tavo Beckman MD Ordering Physician: Tavo Beckman MDResults: 1Njaylyn neil Date of Service: 07/18/24Follow Up: 1 Year From [facility] ina Mammogram Procedure(s): MM tomosynthesis screening BI Accession Number(s): [id number] cc: Tavo Beckman MD EXAMINATION: MM SCREENING [...] 07/27/24 1311 DD/ 1210 TD/TT: 07/18/24 1230 Ostrich Farmer: us Tavo eBckman MD IM BI PROCEDURES Final Result * (ABNORMAL) Lipid Panel, Standard (02/24/2024 8:29 AM EST) Triglycerides 61 <150 mg/dL [facility] Comment:Desirable Triglyceri de: less than 150 mg/dLBorderline High Triglyceride 150-199 mg/dLHigh Triglyceride: 200-499 mg/dLVery High Triglyceride: greater than or equal to 5OO mg/dL Cholesterol 187 <200 mg/dL [facility] Comment:Desirable Cholestero l: less than 200 mg/dLBorderline High Cholesterol: 200-239 mg/dLHigh Cholesterol: greater than 239 mg/dL LDL Cholesterol Calculated 110(H) <100 mg/dL [facility] Comment:Desirable LDL: less than 100 [...] Provider LAB BLOOD ORDERAB LES Final Result [facility] [address] [place] [phone] * Pap Smear (12/29/2022 2:49 PM EST) 12/29/2022 2:49 PM EST 01/03/2023 7:00 AM EST Narrative [facility] - 01/13/2023 4:11 PM EST ----- ------- Name: Serenity Gómez Age/Sex: 47/F : 1975 Unit#: [id number] Attend Dr: Chalino Benton MD Re12/29/22 Status: DEP [facility] Disch: ----- ------- SPEC : [id number] RECD: 01/03/23 STATUS: ANA MARÍA FERRERA NUM: [id number] AN: 12/29/[address] [facility] DR: Chalino Benton MD ENTERED: 01/04/23 [...] 59, 66, 68) HPV testing performed by [employer], [place], [place]. See reference laboratory portion of the EMR for entire report. Clinical Information LMP: Postmenopausal Previous PAP test: 2021, ASCUS, HPV+ Material Received ThinPrep-Cervical Copies To: Tavo Beckman MD [address] [place] [phone] Chalino Benton MD [address] [place] [address] [address] ----- ------- Signed (signature on file) MANUEL Uriarte (ASCP) 01/13/23 1611 ----- ------- END OF REPORT Generic External Data Provider LAB CYTOLOGY ORDJaylyn RABDAVID Final Result Performing Organization Address City/[facility]/ZIP Co de Phone Number [facility] [address] [place] [address] [phone] * HPV E6/E7 RFLX OLGA 16 18/45 (11/11/2021 3:37 PM EDT) [facility] HPV mRNA E6/E7 rflx Not Detected Not Detected [facility] Comment: Methodology: Luggage Repairer-Mediated Amplification This assay detects E6/E7 viral messenger RNA (mRNA) from 14 high-risk HPV types (16,18,31,33,35,39,45,51,52,56,58,59,66,68). Cervical sources are required for HPV testing. If a vaginal source from a patient who has had a total hysterectomy with removal of cervix was submitted, please contact the testing laboratory for alternative testing options. For additional information, please refer to http://education.UXPin/faq/XZM261a6 (This link if provided for information/ educational purposes only.) THIS TEST WAS PERFORMED AT: [facility] [address] [place] [address],[place] [address] ELIZABETH ANDRES MD 11/11/2021 3:37 PM EDT Chalino Benton MD HISTORICAL/NON ORDERABLE LABS Fi nal Result Performing Organization Address City/[facility]/ZIP Co de Phone Number [facility]GACY [...] purpose. For additional information please refer to http://education.UXPin/faq/ZDD655 (This link is being provided for informational/ educational purposes only.) The performance of this assay has not been clinically validated in patients less than 2 years old. 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
--- OUTSIDE RECORDS SUMMARY | 2024-12-27 01:26 | XMS_ITS | Encounter Summary ---
Author Organization [employer] Address [address] [facility] [address] [place] [address] Care Team Providers Care Pyroglazer Name Role Phone Basilia Colon MD Primary Care Provider + Reason for Visit * Reason Onset Date Comments February Recall 12/25/2024 Encounter Details Date Type Department Care Team ([facility] Contact Info) Description 12/25/2024 Telephone [facility] MEDICINE [address] [place], [place] [phone] Basilia Colon MD [address] [place], [place] [phone] February Recall Social History Tobacco Use Types Packs/Day Years [...] the past 12 months, has t he [employer], gas, oil or water [employer] threatened to shut off services in your [...] encounter Miscellaneous Notes * Telephone Encounter - Leighann England MA - 12/25/2024 3:18 PM EST Telephone call to patient to schedule the following recall: Visit type: Office visit Appointment notes: BP Patient agree to appointment on 03/08/25 at 11:45 AM with Isaiah. documented in this encounter Plan of Treatment Upcoming Encounters Date Type Department Care Team (Late st Contact Info) Description 03/08/2025 11:45 AM EST Office Visit [facility] MEDICINE [address] [place] [phone] Basilia Colon MD [address] [place] [phone] documented as of this encounter Visit Diagnoses Not on filedocumented in this encounter Care Teams Pyroglazer Relationship Specialty Start Date End Date Basilia Colon MD [address] [place] [phone] PCP - General Family Medicine 12/27/17 [facility] 06/29/24 documented as of this encounter
== END 2024-12-26 14:08 | disposition home or self-care (01) ==
LOC: HO.HBS 13:28
PROVIDERS: PCP Internal Medicine; Visit Provider Physician Assistant Surgical
DX: E66.3 Overweight (principal); Z68.28 Body mass index [BMI] 28.0-28.9, adult; Z98.890 Other specified postprocedural states; Z98.84 Bariatric surgery status
CPT/HCPCS: 99213

== ENCOUNTER → 2024-12-26 13:27 | Outpatient (BNVA) | payer OTHER, SELFPAY | PROVIDERS: PCP Internal Medicine; Visit Provider Physician Assistant Surgical | DX: Z48.817 Encounter for surgical aftercare following surgery on the skin and subcutaneous tissue (principal); Z98.84 Bariatric surgery status | CPT/HCPCS: 99212 ==